=== PATIENT | female | born 1945 | race Caucasian/White ===

== ENCOUNTER 2016-08-20 16:32 | Emergency (ER) | payer OTHER ==
[~2016-08-20] VITALS: Ht 149.9 cm; Wt 76.8 kg
[~2016-08-20 16:32] MED LIST: ASPI-232 PO; BENA-4 PO; FERR325T51 PO; FLV1 PO; GABA800T PO; OMEP40CA41 PO; PRVHFAIN INH; ULT/50 PO; VTMB12 PO; [UNRECOGNIZED DRUG - CODE] PO
[2016-08-20 16:38] VITALS: TEMP 36.5; Ht 149.9 cm; Wt 76.8 kg
--- NOTE | 2016-08-20 18:46 | DIAGNOSTIC IMAGING REPORT ---
LEFT SHOULDER MIN 2 VIEWS ROUTINE CLINICAL HISTORY: Left shoulder pain following fall. COMPARISON: None FINDINGS: Alignment of the left shoulder is anatomic. No acute fracture is identified. There is moderate arthrosis of the left acromioclavicular and glenohumeral joints. IMPRESSION: 1. No acute fracture or dislocation of the left shoulder. 2. Moderate arthritis of the left acromioclavicular and glenohumeral joints. Electronically signed by: Raj Meek M.D. 08/20/2016 6:45 PM Dictated Date/Time: 08/20/2016 6:43 PM
--- NOTE | 2016-08-20 18:51 | DIAGNOSTIC IMAGING REPORT ---
LEFT RIBS UNILATERAL WITH PA CHEST CLINICAL HISTORY: Left rib pain following fall. COMPARISON STUDY: Chest radiograph July 27, 2015. FINDINGS: There is no pneumothorax or pleural effusion. Lungs are clear. Cardiac size is normal. Lumbar spine fusion hardware is partially imaged. No acute left-sided rib fractures are identified IMPRESSION: No pneumothorax. No acute left rib fractures identified. Electronically signed by: Raj Meek M.D. 08/20/2016 6:50 PM Dictated Date/Time: 08/20/2016 6:48 PM
--- NOTE | 2016-08-20 18:54 | DIAGNOSTIC IMAGING REPORT ---
CT OF THE HEAD WITHOUT CONTRAST CLINICAL HISTORY: Trauma. COMPARISON STUDY: Head CT July 27, 2015. CT DOSE: 918.08 mGy.cm TECHNIQUE: Helical axial images of the head were obtained without IV contrast. Automated exposure control was utilized for the study. FINDINGS: No acute intracranial hemorrhage, midline shift or mass effect is present. Prominence of the extra-axial CSF spaces is unchanged. Ventricular system is normal. Basilar cisterns are patent. There are no extra axial collections. Longoria-white differentiation is maintained. There is a small left scalp contusion. There is no calvarial fracture. IMPRESSION: 1. No acute intracranial findings. 2. Small left scalp contusion. No calvarial fracture. Electronically signed by: Raj Meek M.D. 08/20/2016 6:53 PM Dictated Date/Time: 08/20/2016 6:51 PM
--- NOTE | 2016-08-20 19:01 | DIAGNOSTIC IMAGING REPORT ---
CT OF THE CERVICAL SPINE WITHOUT CONTRAST CLINICAL HISTORY: Trauma. COMPARISON STUDY: No previous studies for comparison. TECHNIQUE: Helical axial images of the cervical spine were obtained without IV contrast. Sagittal and coronal reconstructions were viewed. FINDINGS: The craniocervical junction is intact. There is reversal of the normal cervical lordosis. There is mild loss of height with associated sclerosis of the superior endplate of T1. There is no retropulsion. No acute cervical spine fracture is present. Mild to moderate multilevel degenerative changes are present. There is no prevertebral edema. No pneumothorax is shown within visualized portions of the lung apices IMPRESSION: 1. No acute cervical spine fracture or subluxation. 2. Mild loss of height with associated sclerosis of the superior endplate of T1. This is new since CT of December 09, 2014. Although age indeterminate, this is likely subacute to chronic. This does not appear acute. Electronically signed by: Raj Meek M.D. 08/20/2016 6:59 PM Dictated Date/Time: 08/20/2016 6:53 PM
[2016-08-20 19:24] LABS: URINE APPEARANCE CLEAR (CLEAR); URINE BILIRUBIN NEG (NEG); URINE COLOR YELLOW; URINE EPITHELIAL CELL AUTO 0-5 /lpf (0-5); URINE NITRITE NEG (NEG); URINE SPECIFIC GRAVITY 1.008 (1.000-1.030); UROBILINOGEN NEG (NEG); ZZUR CULT IF INDIC CLEAN CATCH NO
[2016-08-20 19:25] LABS: MANUAL MICROSCOPIC REQUIRED? NO; REVIEW REQ? NO
[2016-08-20 21:17] VITALS: BP 135/75; PULSE 75; O2SAT 99
--- NOTE | 2016-08-20 23:03 | EMERGENCY ROOM VISIT NOTE ---
History Report prepared by Alden: Katja Mace Under the Supervision of: Dr. Percy López M.D. First contact with patient: 17:43 Chief Complaint: FALL Stated Complaint: FALL, HEAD PAIN, RIB PAIN History of Present Illness The patient is a 71 year old female who presents to the Emergency Room with complaints of constant pain from injuries following a fall that occurred just prior to arrival. She rates her pain as 7/10 in severity. The patient states that she was at the [facility] for a game when her foot got stuck on the stairs and she fell down. She states that she is experiencing head, left shoulder and left rib pain. She also notes neck stiffness. Pt denies LOC, visual changes, chest pain, breathing difficulties, nausea, vomiting, abdominal pain, back pain, other extremity pain, numbness, weakness, open wounds, active bleeding, or other complaints. 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 Review of Systems See HPI for pertinent positives and negatives. A total of ten systems were reviewed and were otherwise negative. Past Medical & Surgical Medical Problems: (1) Allergic reaction (2) Benign essential hypertension (3) Chronic osteoarthritis (4) Deep venous thrombosis (5) Gastroesophageal reflux disease (6) History of appendectomy (7) History of calculus of kidney (8) History of cholecystectomy (9) History of colonoscopy (10) History of tonsillectomy (11) History of total hysterectomy (12) Hyperlipidemia (13) Insertion of inferior vena caval filter (14) Pulmonary embolism (15) Spinal stenosis of lumbar region (16) Urethritis (17) Urethritis (18) Urethritis (19) urinary tract infection Family History Cancer Heart disease Hypertension Social History Smoking Status: Never Smoker Alcohol Use: none Drug Use: none Marital Status: Housing Status: lives with significant other Occupation Status: retired Current/Historical Medications Scheduled Aspirin (Aspir-81), 81 MG PO DAILY Benazepril/Hctz (Lotensin Hct), 1 TAB PO DAILY Cyanocobalamin (Vitamin B-12), 1,000 MCG PO QAM Folic Acid (Folic Acid), 1 MG PO QAM Gabapentin (Neurontin), 800 MG PO TID Omeprazole (Prilosec), 40 MG PO DAILY Scheduled PRN Tramadol Hcl (Ultram), 50 MG PO Q6 PRN for Pain Allergies Coded Allergies: Naproxen (Verified Allergy, Severe, SOB, 08/20/16) Ibuprofen (Verified Allergy, Mild, HIVES, 08/20/16) Morphine (Verified Allergy, Mild, itching, 08/20/16) Penicillins (Verified Allergy, Unknown, 08/20/16) Prochlorperazine (Verified Allergy, Unknown, 08/20/16) Physical Exam Vital Signs Date Time Temp Pulse Resp B/P Pulse Ox O2 Delivery O2 Flow Rate FiO2 08/20/16 21:17 75 17 135/75 99 08/20/16 20:07 79 17 141/76 98 Room Air 08/20/16 16:38 36.5 79 20 163/88 97 Room Air Physical Exam GENERAL: Awake, alert, well appearing, no acute distress HEAD: Contusion left parietal area. Normocephalic, atraumatic. No pride sign. No raccoon eyes. EYES: Normal conjunctiva. PERRL. EARS: External ears normal. Right TM normal. Left TM normal. NOSE: Atraumatic OROPHARYNX: Lips, tongue, and mucosa unremarkable. No erythema or exudate. NECK: No tracheal deviation or JVD. No posterior midline tenderness. No step offs noted. RESPIRATORY: CTA bilaterally CARDIAC: 78 rate, normal rhythm. ABDOMEN: Inspection reveals no abnormalities. Soft, non distended. No tenderness to palpation. No hernias. BACK: No midline step offs or tenderness to palpation. Unremarkable. PELVIS: Stable to rock. SKIN: Normal. LYMPH: No adenopathy. MUSCULOSKELETAL: Hematoma of left shoulder. Left lateral rib tenderness. NEURO: GCS 15. Normal sensorium. No sensory or motor deficits noted. Medical Decision & Procedures ER Provider Diagnostic Interpretation: X ray results as stated below per my interpretation and radiologist interpretation. Other radiology results as stated below per my review and radiologist interpretation LEFT SHOULDER MIN 2 VIEWS ROUTINE CLINICAL HISTORY: Left shoulder pain following fall. COMPARISON: None FINDINGS: Alignment of the left shoulder is anatomic. No acute fracture is identified. There is moderate arthrosis of the left acromioclavicular and glenohumeral joints. IMPRESSION: 1. No acute fracture or dislocation of the left shoulder. 2. Moderate arthritis of the left acromioclavicular and glenohumeral joints. Electronically signed by: Raj Meek M.D. 08/20/2016 6:45 PM Dictated Date/Time: 08/20/2016 6:43 PM LEFT RIBS UNILATERAL WITH PA CHEST CLINICAL HISTORY: Left rib pain following fall. COMPARISON STUDY: Chest radiograph July 27, 2015. FINDINGS: There is no pneumothorax or pleural effusion. Lungs are clear. Cardiac size is normal. Lumbar spine fusion hardware is partially imaged. No acute left-sided rib fractures are identified IMPRESSION: No pneumothorax. No acute left rib fractures identified. Electronically signed by: Raj Meek M.D. 08/20/2016 6:50 PM Dictated Date/Time: 08/20/2016 6:[address] OF THE HEAD WITHOUT CONTRAST CLINICAL HISTORY: Trauma. COMPARISON STUDY: Head CT July 27, 2015. CT DOSE: 918.08 mGy.cm TECHNIQUE: Helical axial images of the head were obtained without IV contrast. Automated exposure control was utilized for the study. FINDINGS: No acute intracranial hemorrhage, midline shift or mass effect is present. Prominence of the extra-axial CSF spaces is unchanged. Ventricular system is normal. Basilar cisterns are patent. There are no extra axial collections. Longoria-white differentiation is maintained. There is a small left scalp contusion. There is no calvarial fracture. IMPRESSION: 1. No acute intracranial findings. 2. Small left scalp contusion. No calvarial fracture. Electronically signed by: Raj Meek M.D. 08/20/2016 6:53 PM Dictated Date/Time: 08/20/2016 6:[address] OF THE CERVICAL SPINE WITHOUT CONTRAST CLINICAL HISTORY: Trauma. COMPARISON STUDY: No previous studies for comparison. TECHNIQUE: Helical axial images of the cervical spine were obtained without IV contrast. Sagittal and coronal reconstructions were viewed. FINDINGS: The craniocervical junction is intact. There is reversal of the normal cervical lordosis. There is mild loss of height with associated sclerosis of the superior endplate of T1. There is no retropulsion. No acute cervical spine fracture is present. Mild to moderate multilevel degenerative changes are present. There is no prevertebral edema. No pneumothorax is shown within visualized portions of the lung apices IMPRESSION: 1. No acute cervical spine fracture or subluxation. 2. Mild loss of height with associated sclerosis of the superior endplate of T1. This is new since CT of December 09, 2014. Although age indeterminate, this is likely subacute to chronic. This does not appear acute. Electronically signed by: Raj Meek M.D. 08/20/2016 6:59 PM Dictated Date/Time: 08/20/2016 6:53 PM Laboratory Results Test 08/20/16 18:30 Urine Color YELLOW Urine Appearance CLEAR (CLEAR) Urine pH 5.0 (4.5-7.5) Urine Specific [place] 1.008 (1.000-1.030) Urine Protein NEG (NEG) Urine Glucose (UA) NEG (NEG) Urine Ketones NEG (NEG) Urine Occult Blood NEG (NEG) Urine Nitrite NEG (NEG) Urine Bilirubin NEG (NEG) Urine Urobilinogen NEG (NEG) Urine Leukocyte Esterase SMALL (NEG) Urine WBC (Auto) 1-5 /hpf (0-5) Urine RBC (Auto) 0-4 /hpf (0-4) Urine Hyaline Casts (Auto) 0 /lpf (0-5) Urine Epithelial Cells (Auto) 0-5 /lpf (0-5) Urine Bacteria (Auto) NEG (NEG) Laboratory results reviewed by me ECG Indication: other (fall) Rate (beats per minute): 78 Rhythm: normal sinus Findings: no acute ischemic change, no ectopy ED Course 1747: The patient was evaluated in room B3. A complete history and physical exam was performed. 2042: I reevaluated the patient. Discussed results and discharge instructions: She verbalized understanding and agreement. The patient is ready for discharge. Medical Decision Triage Nursing notes reviewed. The patient's presentation and history were concerning for a fall. Etiologies such as soft tissue injury, fracture, dislocation, closed head injury , concussion, intracranial bleeding, as well as others were entertained. The patient was evaluated. Clinically she was doing relatively well. She declined analgesia. The patient underwent x-ray and CT imaging. So head CT did not reveal any evidence of acute findings. CT of the neck did not reveal any evidence of acute fracture. There was no abnormality seen on T1. The patient was informed. She has no pain in this area. The patient underwent x- ray imaging of the shoulder and ribs. This did not reveal any evidence of fracture or dislocation. The patient was reassessed. She was feeling somewhat better. I did offer analgesia but she has tramadol at home and prefers to stick with this. If she has any problems she will come back to the emergency department she will follow-up closely. It appears that she has suffered multiple contusions from her accidental fall. By the evaluation outlined above other emergent etiologies such as those listed in the differential, as well as others, were deemed relatively unlikely. The patient was informed about the findings as listed above. All questions were answered and she was pleased with the treatment. Return instructions were outlined and the patient was discharged in stable condition. The patient was referred to her for follow-up PCP for a recheck of the current condition. The chart was completed utilizing [employer] Speech voice recognition software. Grammatical errors, random word insertions, pronoun errors, and incomplete sentences are an occasional consequence of this system due to software limitations, ambient noise, and hardware issues. Any formal questions or concerns about the content, text, or information contained within the body of this dictation should be directly addressed to the physician for clarification. Impression Primary Impression: Closed head injury Additional Impressions: Contusion of left shoulder Contusion of rib on left side Accidental fall Scribe Attestation The scribe's documentation has been prepared under my direction and personally reviewed by me in its entirety. I confirm that the note above accurately reflects all work, treatment, procedures, and medical decision making performed by me. Departure Information Dispostion Home / Self-Care Referrals Angélica Cruz M.D. (PCP) Forms HOME CARE DOCUMENTATION FORM, IMPORTANT VISIT INFORMATION Patient Instructions My [facility] Additional Instructions Continue tramadol pain. Acetaminophen(Tylenol) may be used for fever or pain. Use 1000mg every six hours as needed. Avoid using more than 4000mg in a 24 hour period. Ice compresses for 20 minutes at a time four times daily for 2-3 days then warm compresses Rest and elevate your injury. Return to the ER immediately for any numbness, tingling, severe pain, extreme swelling in the extremity or as needed. Follow-up with your primary care physician in 2 to 3 days for a recheck of your current condition. Problem Qualifiers
== END 2016-08-20 21:23 | disposition home or self-care (01) ==
LOC: EDBD 16:32 → C.EDB 16:34
DX: S09.90XA Unspecified injury of head, initial encounter (principal); S40.012A Contusion of left shoulder, initial encounter; S20.212A Contusion of left front wall of thorax, initial encounter; W19.XXXA Unspecified fall, initial encounter; I10 Essential (primary) hypertension; M19.90 Unspecified osteoarthritis, unspecified site; K21.9 Gastro-esophageal reflux disease without esophagitis; Z90.49 Acquired absence of other specified parts of digestive tract; E78.5 Hyperlipidemia, unspecified; Z79.82 Long term (current) use of aspirin; Z80.9 Family history of malignant neoplasm, unspecified; Z82.49 Family history of ischemic heart disease and other diseases of the circulatory system

== ENCOUNTER 2022-03-20 14:26 | Inpatient (IN) ==
[2022-03-20] MEDS ORDERED: methylPREDNISolone 125 MG/2 ML VIAL IV STA (16:34)
[2022-03-20] MEDS ORDERED: ALBUT/IPRATROP 3MG/0.5MG NEB 3 ML VIAL NEB STA (16:34)
--- NOTE | 2022-03-20 16:41 | Emergency Department Note ---
Impression & Plan Pneumonia, COVID-19, Failure of outpatient treatment ED Provider Note NAME: SHER MORLEY AGE: 77 SEX: F : 1945 ARRIVES VIA: Walk-In INFORMANT: [Patient] ED PROVIDER(S): [Ariel Barker MD] CHIEF COMPLAINT: Shortness of breath HISTORY OF PRESENT ILLNESS: Patient is a 77-year-old female presents with about 8 days of symptoms. She has had a productive cough and some shortness of breath. No fever. No vomiting or diarrhea. The patient was started on doxycycline 5 days ago. She also was given a very short burst of prednisone. She felt better on the prednisone but now is no longer on this medication for the last 2 days. She is also using an inhaler every 4 hours. As she was feeling worse, she presents for evaluation. Of note, the patient was exposed to COVID-19. She tested positive twice with 2 at home tests. The patient has no diagnosed lung disease. She states that she does not smoke. She has had bronchitis before. REVIEW OF SYSTEMS: See HPI for pertinent positives and negatives. A total of ten systems were re viewed and were otherwise negative. PMHx/PSHx: See Below SOCIAL HISTORY: See Below. PHYSICAL EXAM: GENERAL: Patient is in no acute distress. HEENT: No acute trauma, normocephalic atraumatic, mucous membranes moist, no nasal congestion, no scleral icterus. NECK: No stridor, no adenopathy, no meningismus, trachea is midline. LUNGS: Diminished breath sounds, no respiratory distress, breath sounds equal, no wheezing. Moist cough noted. HEART: Without murmurs gallops or rubs, regular rate and rhythm. ABDOMEN: Soft, nontender, bowel sounds positive, no peritonitis. EXTREMITIES: No cyanosis or edema, full range of motion of all the joints without pain or difficulty, no signs for acute trauma. NEUROLOGIC: Oriented x 3, no acute motor or sensory deficits, no focal weakness. SKIN: No rash, no jaundice, no diaphoresis. DIFFERENTIAL DIAGNOSIS: Bronchitis or pneumonia, generalized viral illness, COVID-19, influenza, bronchospasm, dehydration, cardiac ischemia, among others. EMERGENCY DEPARTMENT COURSE/PROCEDURES: ECG: Indication was shortness of breath. The ECG shows a normal sinus rhythm with a rate of 75. There is no ST elevation, no PVCs. There is some nonspecific ST change. QTC was 455. Continuous Cardiac Monitoring: An order was placed for continuous cardiac monitoring. The monitor shows a rate of 82 with normal sinus rhythm. MEDICAL DECISION MAKING: There is no leukocytosis or concerning anemia. There is a normal platelet count. No coagulopathy. No significant electrolyte abnormality or renal failure. AST and ALT were slightly elevated, the bilirubin was normal. ECG showed a normal sinus rhythm, no ST elevation. Cardiac enzyme testing x1 was not consistent with acute cardiac injury. COVID test returned positive. Influenza and RSV test returned negative. Chest film does suggest a bilateral lower lobe pneumonia. On exam, the patient had diminished breath sounds, she was not hypoxic. The patient was given IV saline, IV Solu-Medrol, IV ceftriaxone and a DuoNeb. The patient has failed outpatient treatment for pneumonia. She is worse despite the doxycycline. She does have COVID-19, hospitalization is warranted. I spoke with the patient and case management, the on-call hospitalist was consulted. Past Med/Surg History Medical History Anemia Diverticular disease GERD (gastroesophageal reflux disease) CONTROLLED Hiatal hernia History of DVT of lower extremity 2012, WAS ON BLOOD THINNERS X ONE MONTH; unk etiology History of kidney stones History of skin cancer removed Hx pulmonary embolism 2012; AC X ONE MONTHS Hypertension Obesity Osteoarthritis Sleep apnea "mild" no device Surgical History Elgin filter in place PLACED 2012 History of appendectomy History of cholecystectomy History of colonoscopy X 2 History of esophagogastroduodenoscopy (EGD) X 2 History of hysterectomy History of left cataract surgery History of lumbar spinal fusion History of lumpectomy x 2 (benign) History of nasal surgery History of tonsillectomy History of total knee replacement RIGHT Family History Father Hypertension Other No family history of adverse response to anesthesia Social History Smoking Status: Never smoker Cigarettes Per Day: HX OF 1 PACK PER WEEK, QUIT 25 YEARS AGO; Second Hand Exposure: No; Hx Alcohol Use: Yes Alcohol type: wine Hx Substance Use: Yes Last Used Substance: Days (ago) Substance Use Type Other:: medical marijuana 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 Intensive Care Unit Required: No Beliefs That Will Affect Care: None Current Living Situation: Alone Feels Safe at Home: Yes Assistive Devices: Glasses Allergies Allergies Allergy/AdvReac Type Severity Reaction Status Date / Time naproxen Allergy Severe SOB, HIVES Verified 03/20/22 20:11 WITH ALEVE ibuprofen Allergy Mild HIVES Verified 03/20/22 20:11 morphine Allergy Mild itching Verified 03/20/22 20:11 levofloxacin Allergy Unknown Unknown Verified 03/20/22 20:11 Penicillins Allergy Unknown occured as Verified 03/20/22 20:11 a child, severe itching prochlorperazine Allergy Unknown "eyes Verified 03/20/22 20:11 rolled back in head", muscle twitching sulfamethoxazole Allergy Unknown Unknown Verified 03/20/22 20:11 [From Bactrim] trimethoprim [From Bactrim] Allergy Unknown Unknown Verified 03/20/22 20:11 latex Allergy blisters Verified 03/20/22 20:11 nitrofurantoin AdvReac Intermediate Nausea/vomi Verified 03/20/22 20:11 ting Home Meds Home Medications Medication Instructions Recorded Confirmed amoxicillin 500 mg capsule 2,000 mg PO DIRECTED 03/20/22 03/20/22 atorvastatin 20 mg tablet 20 mg PO QAM 03/20/22 03/20/22 benazepril 10 1 tab PO QAM 03/20/22 03/20/22 mg-hydrochlorothiazide 12.5 mg tablet betamethasone valerate 0.1 % 1 applic topical BID PRN FLARE UPS 03/20/22 03/20/22 topical ointment bisacodyl 5 mg tablet 10 mg PO DAILY PRN Constipation 03/20/22 03/20/22 clotrimazole-betamethasone 1 1 applic topical DIRECTED 03/20/22 03/20/22 %-0.05 % topical cream diclofenac sodium 1 % topical gel 1 ea topical BID 03/20/22 03/20/22 doxycycline hyclate 100 mg tablet 100 mg PO BID 03/20/22 03/20/22 duloxetine 60 mg capsule,delayed 60 mg PO DAILY 03/20/22 03/20/22 release estradiol 0.01% (0.1 mg/gram) 1 applic vaginal 2XWK 03/20/22 03/20/22 vaginal cream folic acid 1 mg tablet 1 mg PO DAILY 03/20/22 03/20/22 gabapentin 800 mg tablet 800 mg PO TID 03/20/22 03/20/22 latanoprost 0.005 % eye drops 0 drp ophthalmic (eye) DIRECTED 03/20/22 metoprolol succinate 25 mg 25 mg PO QAM 03/20/22 03/20/22 tablet,extended release 24 hr nystatin 100,000 unit/gram topical 1 applic topical TID 03/20/22 03/20/22 powder (Nystop) nystatin-triamcinolone topical 1 applic topical BID PRN FLARE UPS 03/20/22 03/20/22 cream omeprazole 40 mg capsule,delayed 40 mg PO QAM 03/20/22 03/20/22 release phenazopyridine 95 mg tablet 95 mg PO DIRECTED PRN .URINARY 03/20/22 03/20/22 PROBLEMS Results & Data (ED) Vital Signs Vital Signs - 24 hr 03/20/22 14:28 03/20/22 16:45 03/20/22 16:46 Temperature 36.5 C Temperature Source Temporal Artery Scan Pulse Rate 82 Pulse Rate [Right Finger] Pulse Rhythm [Right Finger] Pulse Strength [Right Finger] Respiratory Rate 16 Respiratory Effort / Characteristics Non-Labored Spontaneous Respiratory Depth Normal Respiratory Pattern Regular Blood Pressure 143/91 H Blood Pressure [Left Arm] Blood Pressure Mean 108 Blood Pressure Mean [Left Arm] Blood Pressure Position Sitting Pulse Oximetry 95 97 97 Oxygen Delivery Method Room Air Room Air Room Air Oxygen Flow Rate 0 Sepsis Recent Fever Within 48 Hours Yes Sepsis New/Unexplained Change in Mental Status No Sepsis Action Taken by Nursing No Action Required 03/20/22 20:27 03/20/22 22:00 Temperature 36.5 C Temperature Source Oral Pulse Rate Pulse Rate [Right Finger] 84 87 Pulse Rhythm [Right Finger] Regular Regular Pulse Strength [Right Finger] Normal Normal Respiratory Rate 18 22 Respiratory Effort / Characteristics Non-Labored Non-Labored Respiratory Depth Normal Normal Respiratory Pattern Regular Regular Blood Pressure Blood Pressure [Left Arm] 162/104 H Blood Pressure Mean Blood Pressure Mean [Left Arm] 123 Blood Pressure Position Pulse Oximetry 98 97 Oxygen Delivery Method Room Air Room Air Oxygen Flow Rate Sepsis Recent Fever Within 48 Hours Sepsis New/Unexplained Change in Mental Status Sepsis Action Taken by Snf Medications Current Medication List: was personally reviewed by me Laboratory Data Attestation: I reviewed the patient's lab results. Result diagrams: 03/20/22 16:48 03/20/22 16:48 Lab Results 03/20/22 03/20/22 03/20/22 Range/Units 16:48 16:48 16:48 WBC 7.55 (4.8-10.8) K/ul RBC 4.85 (3.93-5.22) M/uL Hgb 16.4 H (12.0-16.0) g/dl Hct 47.4 H (34.1-44.9) % MCV 97.7 (80.0-100.0) fL MCH 33.8 (25.0-34.0) pg MCHC 34.6 (32.0-36.0) g/dL RDW Std Deviation 46.9 H (36.4-46.3) fL RDW Coeff of Blayne 13.0 (11.5-14.5) % Plt Count 152 (130-400) K/uL MPV 9.6 (9.4-12.3) fL Immature Gran % (Auto) 1.7 % Neut % (Auto) 79.0 % Lymph % (Auto) 11.5 % Dawson % (Auto) 5.8 % Eos % (Auto) 1.6 % Baso % (Auto) 0.4 % Neut # (Auto) 5.96 (1.4-6.5) K/uL Lymph # (Auto) 0.87 L (1.2-3.4) K/uL Dawson # (Auto) 0.44 (0.24-0.82) K/uL Eos # (Auto) 0.12 (0-0.50) K/uL Baso # (Auto) 0.03 (0-0.2) K/uL Immature Gran # (Auto) 0.13 H (0.00-0.02) K/uL PT 10.6 (9.0-12.0) Seconds INR 1.0 (0.9-1.1) APTT 25.6 (21.0-31.0) Seconds PTT Ratio 0.9 Sodium 136 (136-145) mmol/L Potassium 3.5 (3.5-5.1) mmol/L Chloride 98 (98-107) mmol/L Carbon Dioxide 30 (21-32) mmol/L Anion Gap 8 (3-11) BUN 18 (6-23) mg/dl Creatinine 0.74 (0.6-1.2) mg/dl Est Cr Clr Drug Dosing 60.4 ml/min Est GFR ( Amer) 90.6 ml/min Est GFR (Non-Af Amer) 78.1 ml/min BUN/Creatinine Ratio 24.3 H (10-20) Glucose 84 (70-99(Fasting)) mg/dl Calcium 9.2 (8.5-10.1) mg/dl Magnesium 2.2 (1.7-2.4) mg/dl Total Bilirubin 0.4 (0.2-1.0) mg/dl AST 47 H (13-39) U/L ALT 70 H (7-52) U/L Alkaline Phosphatase 68 (34-104) U/L Troponin I High Sens 4.7 (0-14) pg/ml Total Protein 6.7 (6.0-8.3) gm/dl Albumin 4.1 (3.4-5.0) gm/dl Globulin 2.6 (2.5-4.0) gm/dl Albumin/Globulin Ratio 1.6 (0.9-2) SARS-CoV-2 (PCR) (Negative) Influenza Type A (PCR) (Neg) Influenza Type B (PCR) (Neg) RSV (RT-PCR) (Neg) 03/20/22 Range/Units 17:05 WBC (4.8-10.8) K/ul RBC (3.93-5.22) M/uL Hgb (12.0-16.0) g/dl Hct (34.1-44.9) % MCV (80.0-100.0) fL MCH (25.0-34.0) pg MCHC (32.0-36.0) g/dL RDW Std Deviation (36.4-46.3) fL RDW Coeff of Blayne (11.5-14.5) % Plt Count (130-400) K/uL MPV (9.4-12.3) fL Immature Gran % (Auto) % Neut % (Auto) % Lymph % (Auto) % Dawson % (Auto) % Eos % (Auto) % Baso % (Auto) % Neut # (Auto) (1.4-6.5) K/uL Lymph # (Auto) (1.2-3.4) K/uL Dawson # (Auto) (0.24-0.82) K/uL Eos # (Auto) (0-0.50) K/uL Baso # (Auto) (0-0.2) K/uL Immature Gran # (Auto) (0.00-0.02) K/uL PT (9.0-12.0) Seconds INR (0.9-1.1) APTT (21.0-31.0) Seconds PTT Ratio Sodium (136-145) mmol/L Potassium (3.5-5.1) mmol/L Chloride (98-107) mmol/L Carbon Dioxide (21-32) mmol/L Anion Gap (3-11) BUN (6-23) mg/dl Creatinine (0.6-1.2) mg/dl Est Cr Clr Drug Dosing ml/min Est GFR ( Amer) ml/min Est GFR (Non-Af Amer) ml/min BUN/Creatinine Ratio (10-20) Glucose (70-99(Fasting)) mg/dl Calcium (8.5-10.1) mg/dl Magnesium (1.7-2.4) mg/dl Total Bilirubin (0.2-1.0) mg/dl AST (13-39) U/L ALT (7-52) U/L Alkaline Phosphatase (34-104) U/L Troponin I High Sens (0-14) pg/ml Total Protein (6.0-8.3) gm/dl Albumin (3.4-5.0) gm/dl Globulin (2.5-4.0) gm/dl Albumin/Globulin Ratio (0.9-2) SARS-CoV-2 (PCR) POSITIVE A* (Negative) Influenza Type A (PCR) Negative (Neg) Influenza Type B (PCR) Negative (Neg) RSV (RT-PCR) Negative (Neg) Administered Medications Lactated Ringer's (Lr) 1,000 mls @ 75 mls/hr IV .[id number] ONE Stop: 03/21/22 09:30 Last Admin: 03/20/22 21:10 Dose: 75 mls/hr Documented By: MCKINLEY Discontinued Medications Albuterol (Albut/Ipratrop 3mg/0.5mg Neb 3 Ml Vial) 3 ml NEB NOW STA; Protocol Stop: 03/20/22 16:35 Last Admin: 03/20/22 16:59 Dose: 3 ml Documented By: KV Ceftriaxone Sodium (Rocephin) 2,000 mg in 70 mls @ 140 mls/hr IV NOW STA Stop: 03/20/22 17:54 Last Infusion: 03/20/22 18:33 Dose: 0 mls/hr Documented By: Admin: 03/20/22 17:45 Dose: 140 mls/hr Documented By: KV Sodium Chloride (Nss 1000ml) 500 mls @ 999 mls/hr IV .[id number] ONE Stop: 03/20/22 19:15 Last Admin: 03/20/22 19:45 Dose: 999 mls/hr Documented By: MCKINLEY Clindamycin Phosphate (Cleocin/D5w) 600 mg in 50 mls @ 100 mls/hr IV NOW ONE Stop: 03/20/22 20:33 Last Admin: 03/20/22 20:57 Dose: 100 mls/hr Documented By: MCKINLEY Methylprednisolone (Methylprednisolone 125 Mg/2 Ml Vial) 80 mg IV NOW STA Stop: 03/20/22 16:35 Last Admin: 03/20/22 16:59 Dose: 80 mg Documented By: KV Imaging Data Radiologist's Impression: Chest X-Ray 03/20/22 14:39 XR chest 1V portable CLINICAL HISTORY: SOB TECHNIQUE: Single frontal radiograph of the chest was obtained. Comparison: Comparison is made to chest radiograph 03/01/2018 FINDINGS: No lines and tubes are seen. Cardiomegaly is noted. Bilateral lower lung predominant airspace opacities are seen. No evidence of pleural effusion or pneumothorax. IMPRESSION: Bilateral lower lung predominant airspace opacities which may represent atelectasis, pneumonia, and/or aspiration. ACT 112: Negative or not required by law. Electronically signed by: Joss Joy M.D. 03/20/2022 5:21 PM Discharge Plan Visit Data Chief Complaint: Shortness of Breath/Dyspnea Stated Complaint: BODY ACHES, SOB ED Provider: Ariel Barker Prescriptions Prescriptions: No Action amoxicillin 500 mg Capsule 2,000 mg PO DIRECTED Rx Instructions: TAKE 1 HOUR BEFORE DENTAL APT. latanoprost 0.005 % drops 0 drp ophthalmic (eye) DIRECTED betamethasone valerate 0.1 % Ointment 1 applic TOPICAL BID PRN (Reason: FLARE UPS) atorvastatin 20 mg tablet 20 mg PO QAM omeprazole 40 mg capsule,delayed release(DR/EC) 40 mg PO QAM gabapentin 800 mg tablet 800 mg PO TID Rx Instructions: take 1 tab in am, noon & hs phenazopyridine [Azo] 95 mg Tablet 95 mg PO DIRECTED PRN (Reason: .URINARY PROBLEMS) clotrimazole-betamethasone 1-0.05 % cream 1 applic TOPICAL DIRECTED Rx Instructions: FOR 4 WEEKS, ORDERED 03/01/22 folic acid 1 mg Tablet 1 mg PO DAILY metoprolol succinate 25 mg tablet extended release 24 hr 25 mg PO QAM nystatin [Nystop] 100,000 unit/gram powder 1 applic TOPICAL TID estradiol 0.01 % (0.1 mg/gram) cream 1 applic VAGINAL 2XWK doxycycline hyclate 100 mg tablet 100 mg PO BID Rx Instructions: 7 day regimen, filled 03/14/22 benazepril-hydrochlorothiazide 10-12.5 mg tablet 1 tab PO QAM bisacodyl 5 mg Tablet 10 mg PO DAILY PRN (Reason: Constipation) Rx Instructions: DO NOT USE OVER 1 WEEK nystatin-triamcinolone Cream 1 applic TOPICAL BID PRN (Reason: FLARE UPS) duloxetine 60 mg capsule,delayed release(DR/EC) 60 mg PO DAILY diclofenac sodium 1 % gel 1 ea TOPICAL BID Rx Instructions: APPLY TO AFFECTED AREA OF BACK & RIGHT HIP
[2022-03-20 17:16] LABS: Basophils # (auto) 0.03 K/uL (0-0.2); Basophils % (auto) 0.4 %; Eosinophils # (auto) 0.12 K/uL (0-0.50); Eosinophils % (auto) 1.6 %; Hematocrit (blood only) 47.4 % (34.1-44.9); Hemoglobin 16.4 g/dl (12.0-16.0); Immature Granulocytes # (auto) 0.13 K/uL (0.00-0.02); Immature Granulocytes % (auto) 1.7 %; Lymphocytes # (auto) 0.87 K/uL (1.2-3.4); Lymphocytes % (auto) 11.5 %; Mean Corpuscular Hemoglobin 33.8 pg (25.0-34.0); Mean Corpuscular Hgb Conc 34.6 g/dL (32.0-36.0); Mean Corpuscular Volume 97.7 fL (80.0-100.0); Mean Platelet Volume 9.6 fL (9.4-12.3); Monocytes # (auto) 0.44 K/uL (0.24-0.82); Monocytes % (auto) 5.8 %; Neutrophils # (auto) 5.96 K/uL (1.4-6.5); Platelet Count 152 K/uL (130-400); RDW Standard Deviation 46.9 fL (36.4-46.3); Red Blood Count 4.85 M/uL (3.93-5.22); White Blood Count 7.55 K/ul (4.8-10.8)
--- NOTE | 2022-03-20 17:23 | XRay Report ---
XR chest 1V portable CLINICAL HISTORY: SOB TECHNIQUE: Single frontal radiograph of the chest was obtained. Comparison: Comparison is made to chest radiograph 03/01/2018 FINDINGS: No lines and tubes are seen. Cardiomegaly is noted. Bilateral lower lung predominant airspace opaciti es are seen. No evidence of pleural effusion or pneumothorax. IMPRESSION: Bilateral lower lung predominant airspace opacities which may represent atelectasis, pneumonia, and/o r aspiration. ACT 112: Negative or not required by law. Electronically signed by: Joss Joy M.D. 03/20/2022 5:21 PM
[2022-03-20] MEDS ORDERED: cefTRIAXone SODIUM 2,000 MG/70 ML BAG IV STA (17:25)
[2022-03-20 17:33] LABS: Partial Thromboplastin Ratio 0.9; Partial Thromboplastin Time 25.6 Seconds (21.0-31.0); Prothrombin Time 10.6 Seconds (9.0-12.0)
[2022-03-20 17:34] LABS: Albumin Globulin Ratio 1.6 (0.9-2); Albumin Level 4.1 gm/dl (3.4-5.0); BUN Creatinine Ratio 24.3 (10-20); Bilirubin,Total 0.4 mg/dl (0.2-1.0); Calcium 9.2 mg/dl (8.5-10.1); Creatinine Clr Calc Pharmacy 60.4 ml/min; Est GFR (African American) 90.6 ml/min; Est GFR (Non-African American) 78.1 ml/min; Globulin 2.6 gm/dl (2.5-4.0); Magnesium 2.2 mg/dl (1.7-2.4); Potassium 3.5 mmol/L (3.5-5.1); Total Protein 6.7 gm/dl (6.0-8.3)
[2022-03-20 17:40] LABS: Troponin I High Sensitivity 4.7 pg/ml (0-14)
[2022-03-20 17:53] LABS: Influenza A virus by PCR Negative (Neg); Influenza B virus by PCR Negative (Neg); RSV by PCR Negative (Neg)
[2022-03-20 18:07] LABS: SARS CoV2 RNA(COVID-19) InHosp POSITIVE (Negative)
[2022-03-20] MEDS ORDERED: SODIUM CHLORIDE 0.9% 1000ML 500 ML IV ONE (18:45)
--- NOTE | 2022-03-20 19:47 | Communication Note ---
Date of Service: March 20, 2022 I saw the patient in the ED. Performed HPI and physical exam. Discussed plan with attending physician. Please refer to my attending's note for more information on the patient. Resident Activity Tracking Resident Involvement: Resident Care Provided Care Provided: Adult ED
[2022-03-20] MEDS ORDERED: CLINDAMYCIN/D5W 600 MG/50 ML BAG IV ONE (20:04)
[2022-03-20] MEDS ORDERED: LACTATED RINGER'S 1,000 ML IV ONE (20:11)
--- NOTE | 2022-03-20 20:12 | History & Physical Report ---
Date of Service March 20, 2022 Assessment & Plan (1) Bilateral pneumonia: Plan: Possible aspiration pneumonia Recent bout of COVID-19 pneumonia status post doxycycline and prednisone Rx. 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 Lovenox subcu Full code Text document was generated using Click[employer] voice recognition software. It may contain grammatical or spelling errors. Kindly contact undersigned for clarification of any documentation item in question. History of Present Illness Chief Complaint: Cough, shortness of breath Primary Care Provider: Roxi Bueno DO History obtained from patient and records. Medical history significant for hypertension, hyperlipidemia, PE status post IVC filter placement status post anticoagulation, NAFLD, anxiety/mood disorder, past tobacco abuse. Last week, patient noted junky cough symptoms with shortness of breath. Outpatient COVID-19 test was positive. Patient completed COVID-19 vaccination. Admits to sick contacts. Urgent care center prescribed doxycycline and prednisone course to patient. Symptoms significantly improved. Junky cough symptoms the last few days without chest pain. Some shortness of breath. No fever, no chills. Admits to coughing with meals/water intake from time to time if not careful. Some nausea, no vomiting symptoms. Patient consulted ER for worsening symptoms. Ceftriaxone administered at the ER. 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 Allergies Allergy/AdvReac Type Severity Reaction Status Date / Time naproxen Allergy Severe SOB, HIVES Verified 03/20/22 20:11 WITH ALEVE ibuprofen Allergy Mild HIVES Verified 03/20/22 20:11 morphine Allergy Mild itching Verified 03/20/22 20:11 levofloxacin Allergy Unknown Unknown Verified 03/20/22 20:11 Penicillins Allergy Unknown occured as Verified 03/20/22 20:11 a child, severe itching prochlorperazine Allergy Unknown "eyes Verified 03/20/22 20:11 rolled back in head", muscle twitching sulfamethoxazole Allergy Unknown Unknown Verified 03/20/22 20:11 [From Bactrim] trimethoprim [From Bactrim] Allergy Unknown Unknown Verified 03/20/22 20:11 latex Allergy blisters Verified 03/20/22 20:11 nitrofurantoin AdvReac Intermediate Nausea/vomi Verified 03/20/22 20:11 ting Home Medications Medication Instructions Recorded Confirmed Type amoxicillin 500 mg capsule 2,000 mg PO DIRECTED 03/20/22 03/20/22 History atorvastatin 20 mg tablet 20 mg PO QAM 03/20/22 03/20/22 History benazepril 10 1 tab PO QAM 03/20/22 03/20/22 History mg-hydrochlorothiazide 12.5 mg tablet betamethasone valerate 0.1 % 1 applic topical BID PRN FLARE UPS 03/20/22 03/20/22 History topical ointment bisacodyl 5 mg tablet 10 mg PO DAILY PRN Constipation 03/20/22 03/20/22 History clotrimazole-betamethasone 1 1 applic topical DIRECTED 03/20/22 03/20/22 History %-0.05 % topical cream diclofenac sodium 1 % topical gel 1 ea topical BID 03/20/22 03/20/22 History doxycycline hyclate 100 mg tablet 100 mg PO BID 03/20/22 03/20/22 History duloxetine 60 mg capsule,delayed 60 mg PO DAILY 03/20/22 03/20/22 History release estradiol 0.01% (0.1 mg/gram) 1 applic vaginal 2XWK 03/20/22 03/20/22 History vaginal cream folic acid 1 mg tablet 1 mg PO DAILY 03/20/22 03/20/22 History gabapentin 800 mg tablet 800 mg PO TID 03/20/22 03/20/22 History latanoprost 0.005 % eye drops 0 drp ophthalmic (eye) DIRECTED 03/20/22 03/20/22 History metoprolol succinate 25 mg 25 mg PO QAM 03/20/22 03/20/22 History tablet,extended release 24 hr nystatin 100,000 unit/gram topical 1 applic topical TID 03/20/22 03/20/22 History powder (Nystop) nystatin-triamcinolone topical 1 applic topical BID PRN FLARE UPS 03/20/22 03/20/22 History cream omeprazole 40 mg capsule,delayed 40 mg PO QAM 03/20/22 03/20/22 History release phenazopyridine 95 mg tablet 95 mg PO DIRECTED PRN .URINARY 03/20/22 03/20/22 History PROBLEMS Past Med/Surg History Medical History Anemia Diverticular disease GERD (gastroesophageal reflux disease) CONTROLLED Hiatal hernia History of DVT of lower extremity 2012, WAS ON BLOOD THINNERS X ONE MONTH; unk etiology History of kidney stones History of skin cancer removed Hx pulmonary embolism 2012; AC X ONE MONTHS Hypertension Obesity Osteoarthritis Sleep apnea "mild" no device Surgical History Armona filter in place PLACED 2012 History of appendectomy History of cholecystectomy History of colonoscopy X 2 History of esophagogastroduodenoscopy (EGD) X 2 History of hysterectomy History of left cataract surgery History of lumbar spinal fusion History of lumpectomy x 2 (benign) History of nasal surgery History of tonsillectomy History of total knee replacement RIGHT Family History Father Hypertension Other No family history of adverse response to anesthesia Social History Smoking Status: Former smoker Cigarettes Per Day: HX OF 1 PACK PER WEEK, QUIT 25 YEARS AGO; Second Hand Exposure: No; Do You Dip or Chew Tobacco: No; Tobacco Cessation Education Requested by Patient: No Hx Alcohol Use: Yes Alcohol type: beer Hx Substance Use: No Preferred Language: Kazakh Communication Ability: Effective Molder Hand Required: No Beliefs That Will Affect Care: None Current Living Situation: Alone Other Information That Helps Us Care for You: No Feels Safe at Home: Yes Safety Concerns: Feels Safe At This Time Assistive Devices: None Review of Systems Review of Systems: As per HPI, all other systems reviewed and negative Physical Exam Physical Exam: GENERAL: Comfortable, anxious, pleasant, morbidly obese, no respiratory distress SKIN: Normal color, warm HEENT: Bespectacled, Gerber palpebral conjunctivae, no ptosis, dry buccal mucosa NECK : Supple, short neck, no tenderness CHEST : Decreased breath sounds, occasional expiratory wheezes, no tenderness HEART : RRR, no obvious murmurs ABDOMEN: Some distention, nontender EXTREMITIES : Minimal LE swelling, no LE tenderness, no other conspicuous deformities noted NEUROLOGIC : Coherent, no facial asymmetry, no other gross focality Results & Data Results & [facility] ([facility]) Vital Signs (Past 12 Hours) Vital Signs Temp Pulse Resp BP Pulse Ox O2 Del Method O2 Flow Rate 03/20/22 16:46 97 Room Air 0 03/20/22 16:45 97 Room Air 03/20/22 14:28 36.5 C 82 16 143/91 H 95 Room Air Laboratory Results Laboratory Results WBC 7.55 K/ul (4.8-10.8) 03/20/22 16:48 RBC 4.85 M/uL (3.93-5.22) 03/20/22 16:48 Hgb 16.4 g/dl (12.0-16.0) H 03/20/22 16:48 Hct 47.4 % (34.1-44.9) H 03/20/22 16:48 MCV 97.7 fL (80.0-100.0) 03/20/22 16:48 MCH 33.8 pg (25.0-34.0) 03/20/22 16:48 MCHC 34.6 g/dL (32.0-36.0) 03/20/22 16:48 RDW Std Deviation 46.9 fL (36.4-46.3) H 03/20/22 16:48 RDW Coeff of Blayne 13.0 % (11.5-14.5) 03/20/22 16:48 Plt Count 152 K/uL (130-400) 03/20/22 16:48 MPV 9.6 fL (9.4-12.3) 03/20/22 16:48 Immature Gran % (Auto) 1.7 % 03/20/22 16:48 Neut % (Auto) 79.0 % 03/20/22 16:48 Lymph % (Auto) 11.5 % 03/20/22 16:48 Kings % (Auto) 5.8 % 03/20/22 16:48 Eos % (Auto) 1.6 % 03/20/22 16:48 Baso % (Auto) 0.4 % 03/20/22 16:48 Neut # (Auto) 5.96 K/uL (1.4-6.5) 03/20/22 16:48 Lymph # (Auto) 0.87 K/uL (1.2-3.4) L 03/20/22 16:48 Kings # (Auto) 0.44 K/uL (0.24-0.82) 03/20/22 16:48 Eos # (Auto) 0.12 K/uL (0-0.50) 03/20/22 16:48 Baso # (Auto) 0.03 K/uL (0-0.2) 03/20/22 16:48 Immature Gran # (Auto) 0.13 K/uL (0.00-0.02) H 03/20/22 16:48 PT 10.6 Seconds (9.0-12.0) 03/20/22 16:48 INR 1.0 (0.9-1.1) 03/20/22 16:48 APTT 25.6 Seconds (21.0-31.0) 03/20/22 16:48 PTT Ratio 0.9 03/20/22 16:48 Sodium 136 mmol/L (136-145) 03/20/22 16:48 Potassium 3.5 mmol/L (3.5-5.1) 03/20/22 16:48 Chloride 98 mmol/L (98-107) 03/20/22 16:48 Carbon Dioxide 30 mmol/L (21-32) 03/20/22 16:48 Anion Gap 8 (3-11) 03/20/22 16:48 BUN 18 mg/dl (6-23) 03/20/22 16:48 Creatinine 0.74 mg/dl (0.6-1.2) 03/20/22 16:48 Est Cr Clr Drug Dosing 60.4 ml/min 03/20/22 16:48 Est GFR ( Amer) 90.6 ml/min 03/20/22 16:48 Est GFR (Non-Af Amer) 78.1 ml/min 03/20/22 16:48 BUN/Creatinine Ratio 24.3 (10-20) H 03/20/22 16:48 Glucose 84 mg/dl (70-99(Fasting)) 03/20/22 16:48 Calcium 9.2 mg/dl (8.5-10.1) 03/20/22 16:48 Magnesium 2.2 mg/dl (1.7-2.4) 03/20/22 16:48 Total Bilirubin 0.4 mg/dl (0.2-1.0) 03/20/22 16:48 AST 47 U/L (13-39) H 03/20/22 16:48 ALT 70 U/L (7-52) H 03/20/22 16:48 Alkaline Phosphatase 68 U/L (34-104) 03/20/22 16:48 Troponin I High Sens 4.7 pg/ml (0-14) 03/20/22 16:48 Total Protein 6.7 gm/dl (6.0-8.3) 03/20/22 16:48 Albumin 4.1 gm/dl (3.4-5.0) 03/20/22 16:48 Globulin 2.6 gm/dl (2.5-4.0) 03/20/22 16:48 Albumin/Globulin Ratio 1.6 (0.9-2) 03/20/22 16:48 SARS-CoV-2 (PCR) POSITIVE (Negative) A* 03/20/22 17:05 Influenza Type A (PCR) Negative (Neg) 03/20/22 17:05 Influenza Type B (PCR) Negative (Neg) 03/20/22 17:05 RSV (RT-PCR) Negative (Neg) 03/20/22 17:05 Impressions Chest X-Ray 03/20/22 14:39 XR chest 1V portable CLINICAL HISTORY: SOB TECHNIQUE: Single frontal radiograph of the chest was obtained. Comparison: Comparison is made to chest radiograph 03/01/2018 FINDINGS: No lines and tubes are seen. Cardiomegaly is noted. Bilateral lower lung predominant airspace opacities are seen. No evidence of pleural effusion or pneumothorax. IMPRESSION: Bilateral lower lung predominant airspace opacities which may represent atelectasis, pneumonia, and/or aspiration. ACT 112: Negative or not required by law. Electronically signed by: Joss Joy M.D. 03/20/2022 5:21 PM Diagnostic Findings EKG as per my interpretation :Rate 75, NSR, normal axis, LAD, LAFB, incomplete RBBB., T wave abnormalities septal leads Code Status & VTE Plan VTE Prophylaxis Plan VTE Prophylaxis will be ordered: Yes
[2022-03-20] MEDS ORDERED: bisacodyL 5 MG TABEC PO PRN (23:52)
[2022-03-20] MEDS ORDERED: NON-FORMULARY MEDICATION (Phenazopyridine 95 mg Tablet) PO PRN (23:52)
[2022-03-21] MEDS ORDERED: PROMETHAZINE HCL 12.5 MG in SODIUM CHLORIDE 0.9% 50 ML IV PRN (02:03)
[2022-03-21] MEDS: LATANOPROST 0.005% OP SOLN 2.5 ML BTL OP SCH ×2 (02:06→22:41)
[2022-03-21] MEDS: GABAPENTIN 800 MG TAB PO SCH ×4 (02:08→22:42)
[2022-03-21] MEDS: LEVALBUTEROL TARTRATE 15 GM HFA.AER.AD INH SCH ×3 (03:25→11:50)
[2022-03-21 06:25] LABS: Basophils # (auto) 0.01 K/uL (0-0.2); Basophils % (auto) 0.2 %; Hematocrit (blood only) 44.1 % (34.1-44.9); Hemoglobin 15.1 g/dl (12.0-16.0); Immature Granulocytes # (auto) 0.14 K/uL (0.00-0.02); Immature Granulocytes % (auto) 2.3 %; Lymphocytes # (auto) 0.76 K/uL (1.2-3.4); Lymphocytes % (auto) 12.7 %; Mean Corpuscular Hemoglobin 33.1 pg (25.0-34.0); Mean Corpuscular Hgb Conc 34.2 g/dL (32.0-36.0); Mean Corpuscular Volume 96.7 fL (80.0-100.0); Mean Platelet Volume 9.5 fL (9.4-12.3); Monocytes # (auto) 0.38 K/uL (0.24-0.82); Monocytes % (auto) 6.3 %; Neutrophils % (auto) 78.5 %; Platelet Count 142 K/uL (130-400); RDW Standard Deviation 46.7 fL (36.4-46.3); Red Blood Count 4.56 M/uL (3.93-5.22); White Blood Count 5.99 K/ul (4.8-10.8)
[2022-03-21] MEDS: CLINDAMYCIN/D5W 600 MG/50 ML BAG IV SCH ×2 (06:40→15:22)
[2022-03-21 07:02] LABS: BUN Creatinine Ratio 26.7 (10-20); Calcium 8.4 mg/dl (8.5-10.1); Creatinine Clr Calc Pharmacy 99.6 ml/min; Est GFR (Non-African American) 96.7 ml/min; Potassium 4.1 mmol/L (3.5-5.1)
[2022-03-21] MEDS: ATORVASTATIN 20 MG TAB PO SCH (07:52)
[2022-03-21] MEDS: METOPROLOL SUCC 25MG EXT REL TAB PO SCH (07:52)
[2022-03-21] MEDS: FOLIC ACID 1 MG TAB PO SCH (07:52)
[2022-03-21] MEDS: PANTOprazole 40 MG TAB PO SCH (07:52)
[2022-03-21] MEDS: DICLOFENAC SOD 1% GEL 100 GM TUBE EXT SCH ×2 (07:53→22:39)
[2022-03-21] MEDS: DULoxetine HCL 60 MG CAP PO SCH (07:53)
[2022-03-21] MEDS: ENOXAPARIN INJ 40 MG/0.4 ML SYR SQ SCH (07:53)
[2022-03-21] MEDS: ADVANCED PROBIOTIC 1250 MG CAPSULE PO SCH (11:03)
[2022-03-21] MEDS: lisinopril 2.5 MG TAB PO SCH (11:03)
[2022-03-21] MEDS: HYDROcodone/HOMATROPINE SYRUP 5MG/1.5MG 5ML UDP PO PRN ×2 (13:14→18:21)
[2022-03-21] MEDS ORDERED: XOPENEX/ATROVENT 1.25mg/0.5MG NEB COMBO NEB SCH (13:30)
[2022-03-21] MEDS ORDERED: IPRATROPIUM BROMIDE NEB SOLN 0.02% 2.5 ML VIAL INH SCH (13:30)
--- NOTE | 2022-03-21 15:20 | Hospitalist Progress Note ---
Date of Service March 21, 2022 Assessment & Plan (1) COVID-19: (2) Bronchitis: Plan: Possible aspiration pneumonia 77-year-old female with PMH HTN, HLD, PE/DVT s/p IVC filter, NAFLD, anxiety, who presented to the ED for evaluation of cough and shortness of breath. On 03/14, patient tested positive for COVID-19 as an outpatient and was given prednisone and doxycycline by urgent care provider. Patient also admitted to some occasional coughing and choking with liquids and food. Admitting CXR: Bilateral lower lung predominant airspace opacities which may represent atelectasis, pneumonia, and/or aspiration. COVID-19 test positive on 03/20 Saturating well on room air, no indication for COVID-19 directed therapies Continue clindamycin (day 2) for possible aspiration pneumonia Sputum culture Pulmonary toilet with acetylcysteine nebs and DuoNebs, incentive spirometry/flutter valve CT chest without contrast Speech eval completed --no overt signs or symptoms of aspiration or dysphagia. Patient educated on aspiration and GERD precautions. 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 PT/OT (3) Hypertension: Plan: BP controlled, continue metoprolol On lisinopril as patient's home benazepril is nonformulary Continue to hold HCTZ while acutely ill (4) Hx pulmonary embolism: (5) History of DVT of lower extremity: Plan: S/p IVC filter, no longer on anticoagulation Checking BL LE Dopplers (6) DVT prophylaxis: Plan: SQ Lovenox Admission and Anticipated Discharge Date Admission Date: March 20, 2022 Supervising Physician Co-Signing Physician Notes Attending Addendum: care coordinated with ERIN wilson please refer to her notes for full details, I agree with her notes patient seen and examined, records reviewed by myself as well on exam, patient seen resting in bed, sitting up, not in distress, comfortable but having frequent episodes of coughing spells States cough is productive with white sputum this morning Also having chills at home No chest pain, does report bilateral lower extremity pain no other symptoms VS noted and reviewed oriented x3, not in distress, speaks in sentences with no effort nor accessory muscle use normal rate, regular rhythm, no murmurs Diminished breath sounds bilaterally, no wheezing or crackles noted non distended, soft, nontender no bipedal edema, erythema, warmth no neuro deficits All labs noted and reviewed ASSESSMENT AND PLAN> Cough, shortness of breath in the setting of COVID-19 pneumonia Possible superimposed bacterial pneumonia? Chest x-ray showing bilateral lower infiltrates CT chest: Pending Concern with possible mucous plugging Start nebs every 6 hours scheduled, Mucomyst twice daily scheduled, incentive spirometry, flutter valve Sputum culture: Pending Start empiric Levaquin 750 mg p.o. daily Confirming patient, no allergy to Levaquin, has taken ciprofloxacin in the past with no problems other diagnoses and plan of care as per ERIN Mcclelland MD Subjective Follow-up for COVID-19, bronchitis, possible aspiration pneumonia. Patient seen and examined. Resting in bed, no acute distress. Cough continues however improved per patient. Cough is nonproductive. Patient reports some ongoing mild myalgias. No chest pain or shortness of breath. Reports a good appetite, denies abdominal pain, nausea, vomiting, diarrhea. Review of Systems Review of Systems: ROS per HPI, all other systems reviewed and negative Physical Exam Constitutional: WD/WN, vitals as above Respiratory: normal respiratory effort and + cough (Harsh, nonproductive); no respiratory distress Mildly coarse breath sounds noted in the upper anterior airways, otherwise clear Cardiovascular: Rate/Rhythm: regular rate and regular rhythm Vessels: normal peripheral pulses Extremities: no edema Gastrointestinal (Abdomen): Percussion/Palpation: abdomen soft; abdomen nontender Skin: no rashes, warm and dry Neurologic: no focal motor deficits Psychiatric: A+Ox3, euthymic affect Results & Data Results & Data ([facility]) Vital Signs (Past 12 Hours) Vital Signs Temp Pulse Resp BP Pulse Ox O2 Del Method 03/21/22 11:51 74 18 93 Room Air 03/21/22 08:15 Room Air 03/21/22 08:04 36.7 C 74 18 114/71 93 Room Air 03/21/22 07:12 74 16 95 Room Air 03/21/22 03:28 77 16 94 Room Air Laboratory Results Short CBC 03/20/22 03/21/22 Range/Units 16:48 06:09 WBC 7.55 5.99 (4.8-10.8) K/ul Hgb 16.4 H 15.1 (12.0-16.0) g/dl Hct 47.4 H 44.1 (34.1-44.9) % Plt Count 152 142 (130-400) K/uL BMP 03/20/22 03/21/22 16:48 06:09 Sodium 136 138 Potassium 3.5 4.1 Chloride 98 103 Carbon Dioxide 30 27 BUN 18 12 Creatinine 0.74 0.45 L Glucose 84 113 H Calcium 9.2 8.4 L Liver Function 03/20/22 Range/Units 16:48 Total Bilirubin 0.4 (0.2-1.0) mg/dl AST 47 H (13-39) U/L ALT 70 H (7-52) U/L Alkaline Phosphatase 68 (34-104) U/L Albumin 4.1 (3.4-5.0) gm/dl
[2022-03-21] MEDS: LEVALBUTEROL 1.25MG/0.5ML NEB INH SCH ×2 (15:50→20:14)
[2022-03-21] MEDS: ACETYLCYSTEINE 10% INHAL SOLN 4 ML **DISPENSED BY RESP. INH SCH ×2 (15:51→20:14)
[2022-03-21] MEDS: IPRATROPIUM BROMIDE NEB SOLN 0.02% 2.5 ML VIAL INH SCH ×4 (15:51→20:13)
--- NOTE | 2022-03-21 16:16 | CT Scan Report ---
CT SCAN OF THE CHEST WITHOUT IV CONTRAST CLINICAL HISTORY: Pneumonia. Covid. COMPARISON STUDY: Chest x-ray dated 03/20/2022. Chest CT dated 12/09/2014. TECHNIQUE: CT scan of the thorax was performed from the thoracic inlet to the upper abdomen. Images are reviewed in the axial, sagittal, and coronal planes. IV contrast was not administered for this ex amination as per the referring clinician. A dose lowering technique was utilized [facility] [place]. CT DOSE: 630.72 mGy.cm FINDINGS: Thyroid: Imaged portions of the thyroid gland are normal in size and attenuation. Thoracic aorta: There is atherosclerotic calcification of the thoracic aorta, which is normal in rodney klaus and demonstrates variant 3-vessel arch anatomy. There is a bovine arch, and the left vertebral ar maranda arises directly from the thoracic aorta. Heart: The heart is normal in size and without pericardial effusion. There are calcifications of the coronary arteries and mitral annulus. Lungs and pleural spaces: Evaluation of the lung parenchyma is significantly degraded by motion artif act. Multifocal groundglass consolidation is seen throughout both lungs with a subpleural and lower l obe predominance. There is no pleural effusion. The trachea and central airways are clear. Mediastinum: There is no mediastinal lymphadenopathy. Glory: Not well assessed without IV contrast. Axillae: There is no axillary lymphadenopathy. Upper abdomen: A small hiatal hernia is noted. There is hepatic steatosis. The gallbladder surgically absent. Skeletal structures: The skeletal structures are osteopenic. Spondylotic change is seen throughout th e thoracic spine and arthritic change is noted in the shoulders. No lytic or blastic bony lesions are seen. IMPRESSION: 1. Multifocal groundglass consolidation is seen throughout both lungs as detailed above. This is cons istent with reported history of a viral pneumonia. Radiographic follow-up resolution is recommended. 2. No pleural effusion is identified. 3. Hepatic steatosis. 4. Additional findings as above. ACT 112: Negative or not required by law. Electronically signed by: Ariel Bolaños M.D. 03/21/2022 4:14 PM
[2022-03-21] MEDS ORDERED: Nursing to Pharmacy Communication SCH (18:00)
[2022-03-21] MEDS: levoFLOXacin 750 MG TAB PO SCH (18:21)
--- NOTE | 2022-03-21 21:07 | Ultrasound Report ---
BILATERAL LOWER EXTREMITY VENOUS DOPPLER HISTORY: Acute pain of the right lower extremity leg pain, r/o DVT COMPARISON STUDY: 12/09/2014. FINDINGS: There is normal compressibility, flow, and augmentation within the bilateral lower extremit y deep venous systems. Mild stranding within the left popliteal vein may represent a chronic nonocclu sive thrombus, unchanged from 2015. IMPRESSION: No acute DVT within the right or left lower extremity. ACT 112: Negative or not required by law. Electronically signed by: Ethan Celeste M.D. 03/21/2022 9:06 PM
[2022-03-21] MEDS: ACETAMINOPHEN 325 MG TAB PO PRN (22:38)
--- NOTE | 2022-03-21 22:42 | Electrocardiogram Report ---
Test Reason : Blood Pressure : / mmHG Vent. Rate : 075 BPM Atrial Rate : 075 BPM P-R Int : 160 ms QRS Dur : 088 ms QT Int : 408 ms P-R-T Axes : 067 -38 068 degrees QTc Int : 455 ms Normal sinus rhythm Biatrial enlargement Left axis deviation Abnormal ECG When compared with ECG of 20-AUG-2016 17:39, No significant change was found Confirmed by Fantasma Hatch ([id number]) on 03/21/2022 10:41:58 PM Referred By: Roxi Bueno Confirmed By:Fantasma Hatch
[2022-03-22] MEDS: IPRATROPIUM BROMIDE NEB SOLN 0.02% 2.5 ML VIAL INH SCH ×8 (01:29→20:16)
[2022-03-22] MEDS: LEVALBUTEROL 1.25MG/0.5ML NEB INH SCH ×4 (01:30→20:15)
[2022-03-22] MEDS: ACETAMINOPHEN 325 MG TAB PO PRN ×2 (04:46→18:27)
[2022-03-22] MEDS ORDERED: LEVALBUTEROL HCL 1.25 MG/3 ML NEB ONE ×3 (07:18→19:50)
[2022-03-22] MEDS: ACETYLCYSTEINE 10% INHAL SOLN 4 ML **DISPENSED BY RESP. INH SCH ×2 (07:27→20:15)
[2022-03-22] MEDS: HYDROcodone/HOMATROPINE SYRUP 5MG/1.5MG 5ML UDP PO PRN ×2 (09:16→18:28)
[2022-03-22] MEDS: lisinopril 2.5 MG TAB PO SCH (09:17)
[2022-03-22] MEDS: DULoxetine HCL 60 MG CAP PO SCH (09:18)
[2022-03-22] MEDS: FOLIC ACID 1 MG TAB PO SCH (09:18)
[2022-03-22] MEDS: PANTOprazole 40 MG TAB PO SCH (09:18)
[2022-03-22] MEDS: METOPROLOL SUCC 25MG EXT REL TAB PO SCH (09:19)
[2022-03-22] MEDS: ATORVASTATIN 20 MG TAB PO SCH (09:19)
[2022-03-22] MEDS: GABAPENTIN 800 MG TAB PO SCH ×3 (09:19→20:58)
[2022-03-22] MEDS: DICLOFENAC SOD 1% GEL 100 GM TUBE EXT SCH ×2 (09:20→20:55)
[2022-03-22] MEDS: ADVANCED PROBIOTIC 1250 MG CAPSULE PO SCH (09:20)
[2022-03-22] MEDS: ENOXAPARIN INJ 40 MG/0.4 ML SYR SQ SCH (09:21)
--- NOTE | 2022-03-22 14:47 | Hospitalist Progress Note ---
Date of Service March 22, 2022 Assessment & Plan (1) COVID-19: (2) Bronchitis: Plan: Possible superimposed bacterial pneumonia 77-year-old female with PMH HTN, HLD, PE/DVT s/p IVC filter, NAFLD, anxiety, who presented to the ED for evaluation of cough and shortness of breath. On 03/15, patient tested positive for COVID-19 via home test and was given prednisone and doxycycline by urgent care provider. Patient also admitted to some occasional coughing and choking with liquids and food. Admitting CXR: Bilateral lower lung predominant airspace opacities which may represent atelectasis, pneumonia, and/or aspiration. COVID-19 test positive on 03/20 Saturating well on room air, no indication for COVID-[address] chest without contrast: Multifocal groundglass consolidation is seen throughout both lungs. Received 2 days of IV clindamycin for possible aspiration pneumonia, changed to Levaquin 750 mg PO on 03/21 for possible superimposed bacterial pneumonia. Sputum culture -- need to repeat due to contaminated specimen Pulmonary toilet with acetylcysteine nebs and DuoNebs, incentive spirometry/flutter valve Hycodan cough syrup as needed Speech eval completed --no overt signs or symptoms of aspiration or dysphagia. Patient educated on aspiration and GERD precautions. 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 PT/OT Harsh cough continues, consider DC tomorrow (3) Hypertension: Plan: BP controlled, continue metoprolol On lisinopril as patient's home benazepril is nonformulary Continue to hold HCTZ while acutely ill (4) Hx pulmonary embolism: (5) History of DVT of lower extremity: Plan: S/p IVC filter, no longer on anticoagulation BL LE Doppler negative for DVT (6) DVT prophylaxis: Plan: SQ Lovenox Admission and Anticipated Discharge Date Admission Date: March 20, 2022 Supervising Physician Co-Signing Physician Notes Attending Addendum: care coordinated with ERIN wilson please refer to her notes for full details, I agree with her notes patient seen and examined, records reviewed by myself as well on exam, patient seen sitting up in bedside chair, comfortable, not in distress Still having bouts of cough, but able to expectorate more white phlegm no other symptoms diagnoses and plan of care as per ERIN wilosn's notes Luca Mcclelland MD Subjective Follow-up for COVID-19, bronchitis, possible superimposed bacterial pneumonia. Patient seen and examined. Sitting up in the chair. Minimal improvement in cough however is looser and more productive. Cough has been productive for white/yellow sputum. Patient reports some mild shortness of breath while working with therapy however no hypoxia has been documented. Patient denies chest pain. No abdominal pain or nausea. Physical Exam Constitutional: WD/WN, vitals as above no acute distress Respiratory: normal respiratory effort and + cough; no respiratory distress Coarse breath sounds noted with coughing Cardiovascular: Rate/Rhythm: regular rate and regular rhythm Vessels: normal peripheral pulses Extremities: no edema Gastrointestinal (Abdomen): Percussion/Palpation: abdomen soft; abdomen nontender Skin: no rashes, warm and dry Neurologic: no focal motor deficits Psychiatric: A+Ox3, euthymic affect Results & Data Results & Data ([facility]) Vital Signs (Past 12 Hours) Vital Signs Temp Pulse Resp BP Pulse Ox Pulse Ox Pulse Ox 03/22/22 13:40 91 92 03/22/22 12:59 93 H 18 92 03/22/22 09:45 92 03/22/22 09:30 03/22/22 07:54 36.4 C L 75 22 105/74 92 03/22/22 07:30 69 18 92 Pulse Ox O2 Del Method O2 Flow Rate O2 Flow Rate O2 Flow Rate 03/22/22 13:40 90 0 0 0 03/22/22 12:59 Room Air 03/22/22 09:45 03/22/22 09:30 Room Air 03/22/22 07:54 Room Air 03/22/22 07:30 Room Air Diagnostic Findings Chest CT 03/21/22 13:30 CT SCAN OF THE CHEST WITHOUT IV CONTRAST CLINICAL HISTORY: Pneumonia. Covid. COMPARISON STUDY: Chest x-ray dated 03/20/2022. Chest CT dated 12/09/2014. TECHNIQUE: CT scan of the thorax was performed from the thoracic inlet to the upper abdomen. Images are reviewed in the axial, sagittal, and coronal planes. IV contrast was not administered for this examination as per the referring clinician. A dose lowering technique was utilized adhering to the principles of ALARA. CT DOSE: 630.72 mGy.cm FINDINGS: Thyroid: Imaged portions of the thyroid gland are normal in size and attenuation. Thoracic aorta: There is atherosclerotic calcification of the thoracic aorta, which is normal in caliber and demonstrates variant 3-vessel arch anatomy. There is a bovine arch, and the left vertebral artery arises directly from the thoracic aorta. Heart: The heart is normal in size and without pericardial effusion. There are calcifications of the coronary arteries and mitral annulus. Lungs and pleural spaces: Evaluation of the lung parenchyma is significantly degraded by motion artifact. Multifocal groundglass consolidation is seen throughout both lungs with a subpleural and lower lobe predominance. There is no pleural effusion. The trachea and central airways are clear. Mediastinum: There is no mediastinal lymphadenopathy. Glory: Not well assessed without IV contrast. Axillae: There is no axillary lymphadenopathy. Upper abdomen: A small hiatal hernia is noted. There is hepatic steatosis. The gallbladder surgically absent. Skeletal structures: The skeletal structures are osteopenic. Spondylotic change is seen throughout the thoracic spine and arthritic change is noted in the shoulders. No lytic or blastic bony lesions are seen. IMPRESSION: 1. Multifocal groundglass consolidation is seen throughout both lungs as detailed above. This is consistent with reported history of a viral pneumonia. Radiographic follow-up resolution is recommended. 2. No pleural effusion is identified. 3. Hepatic steatosis. 4. Additional findings as above. ACT 112: Negative or not required by law. Electronically signed by: Ariel Bolaños M.D. 03/21/2022 4:14 PM Venous Doppler Study 03/21/22 13:59 BILATERAL LOWER EXTREMITY VENOUS DOPPLER HISTORY: Acute pain of the right lower extremity leg pain, r/o DVT COMPARISON STUDY: 12/09/2014. FINDINGS: There is normal compressibility, flow, and augmentation within the bilateral lower extremity deep venous systems. Mild stranding within the left popliteal vein may represent a chronic nonocclusive thrombus, unchanged from 2015. IMPRESSION: No acute DVT within the right or left lower extremity. ACT 112: Negative or not required by law. Electronically signed by: Ethan Celeste M.D. 03/21/2022 9:06 PM
[2022-03-22] MEDS: COUGH DROP (SUGAR FREE) LOZ 24 LOZ/1 BOX BUCCAL PRN (18:26)
[2022-03-22] MEDS: levoFLOXacin 750 MG TAB PO SCH (18:27)
[2022-03-22] MEDS: LATANOPROST 0.005% OP SOLN 2.5 ML BTL OP SCH (20:54)
[2022-03-23] MEDS: ACETAMINOPHEN 325 MG TAB PO PRN ×4 (00:30→20:15)
[2022-03-23] MEDS ORDERED: LEVALBUTEROL HCL 1.25 MG/3 ML NEB ONE (01:09)
[2022-03-23] MEDS: IPRATROPIUM BROMIDE NEB SOLN 0.02% 2.5 ML VIAL INH SCH ×6 (01:14→21:18)
[2022-03-23] MEDS: LEVALBUTEROL 1.25MG/0.5ML NEB INH SCH ×4 (01:16→21:18)
[2022-03-23] MEDS: ACETYLCYSTEINE 10% INHAL SOLN 4 ML **DISPENSED BY RESP. INH SCH ×2 (08:13→21:17)
[2022-03-23] MEDS: PANTOprazole 40 MG TAB PO SCH (09:11)
[2022-03-23] MEDS: FOLIC ACID 1 MG TAB PO SCH (09:12)
[2022-03-23] MEDS: DULoxetine HCL 60 MG CAP PO SCH (09:12)
[2022-03-23] MEDS: ADVANCED PROBIOTIC 1250 MG CAPSULE PO SCH (09:12)
[2022-03-23] MEDS: ATORVASTATIN 20 MG TAB PO SCH (09:12)
[2022-03-23] MEDS: METOPROLOL SUCC 25MG EXT REL TAB PO SCH (09:12)
[2022-03-23] MEDS: lisinopril 2.5 MG TAB PO SCH (09:12)
[2022-03-23] MEDS: GABAPENTIN 800 MG TAB PO SCH ×3 (09:12→20:16)
[2022-03-23] MEDS: DICLOFENAC SOD 1% GEL 100 GM TUBE EXT SCH ×2 (09:15→20:17)
[2022-03-23] MEDS: ENOXAPARIN INJ 40 MG/0.4 ML SYR SQ SCH (09:16)
[2022-03-23] MEDS: HYDROcodone/HOMATROPINE SYRUP 5MG/1.5MG 5ML UDP PO PRN ×2 (10:34→16:42)
--- NOTE | 2022-03-23 15:26 | Hospitalist Progress Note ---
Date of Service March 23, 2022 Assessment & Plan (1) COVID-19: (2) Bronchitis: Plan: Possible superimposed bacterial pneumonia 77-year-old female with PMH HTN, HLD, PE/DVT s/p IVC filter, NAFLD, anxiety, who presented to the ED for evaluation of cough and shortness of breath. On 03/15, patient tested positive for COVID-19 via home test and was given prednisone and doxycycline by urgent care provider. Patient also admitted to some occasional coughing and choking with liquids and food. Admitting CXR: Bilateral lower lung predominant airspace opacities which may represent atelectasis, pneumonia, and/or aspiration Saturating well on room air, no indication for COVID-[address] chest without contrast: Multifocal ground glass consolidation is seen throughout both lungs. Received 2 days of IV clindamycin for possible aspiration pneumonia, changed to Levaquin 750 mg PO on 03/21 for possible superimposed bacterial pneumonia First sputum culture contaminated; repeat obtained and pending Pulmonary toilet with acetylcysteine nebs and DuoNebs, incentive spirometry/flutter valve. Added chest percussive therapy BID Hycodan cough syrup as needed, added Tessalon Perles Repeat CXR in AM Speech eval completed --no overt signs or symptoms of aspiration or dysphagia. Patient educated on aspiration and GERD precautions. 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 PT/OT (3) Hypertension: Plan: BP controlled, continue metoprolol On lisinopril as patient's home benazepril is nonformulary Continue to hold HCTZ while acutely ill (4) Hx pulmonary embolism: (5) History of DVT of lower extremity: Plan: S/p IVC filter, no longer on anticoagulation BL LE Doppler negative for DVT (6) DVT prophylaxis: Plan: SQ Lovenox Plan delayed entry date of service noted above Attending Addendum: care coordinated with LYNN Ayala please refer to her notes for full details, I agree with her notes patient seen and examined, records reviewed by myself as well Luca Mcclelland MD Admission and Anticipated Discharge Date Admission Date: March 20, 2022 Subjective Seen in 380-1 in follow-up for COVID-19, bronchitis, possible superimposed bacterial pneumonia. Feeling similar to yesterday with fatigued and frequent cough but has been hesitant to use cough syrup. Feeling slightly better since RN placed oxygen. Routine breathing treatments Q6H. Denies fever, chills, headache, chest pain. Mildly short of breath when exerting herself like walking the bathroom. No nausea, vomiting, abdominal pain, dysuria, diarrhea or constipation. Review of Systems Review of Systems: At least ten systems reviewed and negative except as noted in the HPI. Physical Exam Physical Exam: Gen: WD/WN, NAD, sitting in bed, obese, A&Ox3, answering questions appropriately HEENT: Normocephalic, atraumatic, conjunctivae moist, sclerae anicteric, mucous membranes moist Lung: Coarse breath sounds bilaterally, diminished at bases. No wheezing Heart: Regular rate, regular rhythm, no murmurs, rubs, or gallops Abdomen: Soft, NT, ND +BS x 4 Extremities: no edema Skin: Warm, no rash Results & Data Results & Data ([facility]) Vital Signs (Past 12 Hours) Vital Signs Temp Pulse Resp BP BP Pulse Ox O2 Del Method 03/23/22 15:14 36.5 C 87 18 115/61 93 Room Air 03/23/22 13:25 87 15 92 Nasal Cannula 03/23/22 10:57 Nasal Cannula 03/23/22 08:42 36.6 C 92 H 22 132/88 03/23/22 08:09 82 17 91 Room Air O2 Flow Rate FiO2 03/23/22 15:14 03/23/22 13:25 2 03/23/22 10:57 2 03/23/22 08:42 03/23/22 08:09 21
[2022-03-23] MEDS: BENZONATATE 100 MG CAPSULE PO PRN (16:32)
[2022-03-23] MEDS: COUGH DROP (SUGAR FREE) LOZ 24 LOZ/1 BOX BUCCAL PRN (16:32)
[2022-03-23] MEDS: dexAMETHasone 6 MG in SYRINGE 0 ML IV SCH (16:42)
[2022-03-23] MEDS: levoFLOXacin 750 MG TAB PO SCH (17:31)
[2022-03-23] MEDS: LATANOPROST 0.005% OP SOLN 2.5 ML BTL OP SCH (20:17)
[2022-03-24] MEDS: HYDROcodone/HOMATROPINE SYRUP 5MG/1.5MG 5ML UDP PO PRN (00:28)
[2022-03-24] MEDS: LEVALBUTEROL 1.25MG/0.5ML NEB INH SCH ×4 (01:54→21:23)
[2022-03-24] MEDS: IPRATROPIUM BROMIDE NEB SOLN 0.02% 2.5 ML VIAL INH SCH ×4 (01:54→21:23)
[2022-03-24] MEDS: ACETYLCYSTEINE 10% INHAL SOLN 4 ML **DISPENSED BY RESP. INH SCH ×2 (07:42→21:23)
[2022-03-24] MEDS: ENOXAPARIN INJ 40 MG/0.4 ML SYR SQ SCH (08:48)
[2022-03-24] MEDS: METOPROLOL SUCC 25MG EXT REL TAB PO SCH (08:49)
[2022-03-24] MEDS: lisinopril 2.5 MG TAB PO SCH (08:49)
[2022-03-24] MEDS: DULoxetine HCL 60 MG CAP PO SCH (08:49)
[2022-03-24] MEDS: ADVANCED PROBIOTIC 1250 MG CAPSULE PO SCH (08:49)
[2022-03-24] MEDS: DICLOFENAC SOD 1% GEL 100 GM TUBE EXT SCH ×2 (08:49→20:13)
[2022-03-24] MEDS: FOLIC ACID 1 MG TAB PO SCH (08:50)
[2022-03-24] MEDS: ATORVASTATIN 20 MG TAB PO SCH (08:50)
[2022-03-24] MEDS: PANTOprazole 40 MG TAB PO SCH (08:50)
[2022-03-24] MEDS: GABAPENTIN 800 MG TAB PO SCH ×3 (08:51→20:13)
[2022-03-24] MEDS ORDERED: POLYETHYLENE (MIRALAX) 17 GM PACK PO PRN (08:53)
[2022-03-24] MEDS: BENZONATATE 100 MG CAPSULE PO PRN ×3 (09:08→21:18)
[2022-03-24] MEDS: DEXTROMETHORPHAN POLYMR COMPLX 30 MG/5 ML UDP PO PRN ×2 (10:02→22:49)
[2022-03-24 10:15] LABS: Hemoglobin 13.7 g/dl (12.0-16.0); Mean Corpuscular Hemoglobin 32.6 pg (25.0-34.0); Mean Corpuscular Hgb Conc 34.3 g/dL (32.0-36.0); Mean Corpuscular Volume 95.2 fL (80.0-100.0); Mean Platelet Volume 9.4 fL (9.4-12.3); Platelet Count 132 K/uL (130-400); RDW Coefficient of Variation 12.7 % (11.5-14.5); RDW Standard Deviation 44.4 fL (36.4-46.3); White Blood Count 4.69 K/ul (4.8-10.8)
[2022-03-24 10:34] LABS: BUN Creatinine Ratio 26.1 (10-20); Calcium 8.5 mg/dl (8.5-10.1); Creatinine Clr Calc Pharmacy 97.4 ml/min; Est GFR (African American) 111.2 ml/min; Potassium 3.7 mmol/L (3.5-5.1)
--- NOTE | 2022-03-24 11:23 | XRay Report ---
XR chest 1V portable HISTORY: Covid. Shortness of breath. COMPARISON: Chest 03/20/2022. FINDINGS: No pneumothorax. No pleural effusions. The cardiac silhouette remains normal in size. Mild interstitial thickening with patchy peripheral airspace opacities within the right upper lobe and lef t lower lobe have slightly progressed. This favors a viral pneumonia. Calcifications within the aorti c knob. IMPRESSION: Interval progression of the patchy peripheral airspace opacities within the lungs consistent with a v iral pneumonia. ACT 112: Negative or not required by law. Electronically signed by: Mahad Cuellar M.D. 03/24/2022 11:22 AM
[2022-03-24] MEDS ORDERED: LEVALBUTEROL HCL 1.25 MG/3 ML NEB ONE (12:37)
[2022-03-24] MEDS: ACETAMINOPHEN 325 MG TAB PO PRN (13:12)
[2022-03-24] MEDS: dexAMETHasone 6 MG in SYRINGE 0 ML IV SCH (15:33)
--- NOTE | 2022-03-24 17:03 | Hospitalist Progress Note ---
Date of Service March 24, 2022 Assessment & Plan (1) COVID-19: (2) Bronchitis: Plan: Possible superimposed bacterial pneumonia 77-year-old female with PMH HTN, HLD, PE/DVT s/p IVC filter, NAFLD, anxiety, who presented to the ED for evaluation of cough and shortness of breath. On 03/15, patient tested positive for COVID-19 via home test and was given prednisone and doxycycline by urgent care provider. Patient also admitted to some occasional coughing and choking with liquids and food. Admitting CXR: Bilateral lower lung predominant airspace opacities which may represent atelectasis, pneumonia, and/or aspiration Saturating well on room air, no indication for COVID-[address] chest without contrast: Multifocal ground glass consolidation is seen throughout both lungs. Received 2 days of IV clindamycin for possible aspiration pneumonia, changed to Levaquin 750 mg PO on 03/21 for possible superimposed bacterial pneumonia Repeat CXR (03/24) with interval progression of the patchy peripheral airspace opacities within the lungs consistent with a viral pneumonia. First sputum culture contaminated; repeat obtained and pending Pulmonary toilet with acetylcysteine nebs and DuoNebs, incentive spirometry/flutter valve. Added chest percussive therapy BID Discontinued Hycodan cough syrup and better symptom control with Delsym. Added Tessalon Perles as needed Continue daily Decadron (day 2) Speech eval completed --no overt signs or symptoms of aspiration or dysphagia. Patient educated on aspiration and GERD precautions. [employer] CONSULTANT recommending regular diet with thin liquids. PT/OT (3) Hypertension: Plan: BP controlled, continue metoprolol On lisinopril as patient's home benazepril is non-formulary Continue to hold HCTZ while acutely ill (4) Hx pulmonary embolism: (5) History of DVT of lower extremity: Plan: S/p IVC filter, no longer on anticoagulation BL LE Doppler negative for DVT (6) DVT prophylaxis: Plan: SQ Lovenox Plan delayed entry date of service noted above Attending Addendum: care coordinated with LYNN Ayala please refer to her notes for full details, I agree with her notes patient seen and examined, records reviewed by myself as well Luca Mcclelland MD Admission and Anticipated Discharge Date Admission Date: March 20, 2022 Subjective Seen in 380-1 in follow-up for COVID-19, bronchitis, possible superimposed bacterial pneumonia. Feeling slightly improved today from yesterday. Still with cough although utilizing Delsym cough syrup with improvement. Doing better steroids. Mental oxygen in place and patient denies shortness of breath at rest but has some with ambulation to restroom. No fevers, chills, headache, chest pain, nausea, vomiting, abdominal pain, dysuria, diarrhea or constipation. Had bowel movement yesterday afternoon. Review of Systems Review of Systems: At least ten systems reviewed and negative except as noted in the HPI. Physical Exam Physical Exam: Gen: WD/WN, NAD, sitting in bed, obese, A&Ox3, answering questions appropriately HEENT: Normocephalic, atraumatic, conjunctivae moist, sclerae anicteric, mucous membranes moist Lung: Coarse breath sounds bilaterally but improving. No wheezing Heart: Regular rate, regular rhythm, no murmurs, rubs, or gallops Abdomen: Soft, NT, ND +BS x 4 Extremities: no edema Skin: Warm, no rash Results & Data Results & Data ([facility]) Vital Signs (Past 12 Hours) Vital Signs Temp Pulse Resp BP Pulse Ox O2 Del Method O2 Flow Rate 03/24/22 15:36 36.4 C L 77 24 111/70 92 Nasal Cannula 2 03/24/22 12:57 83 19 93 Nasal Cannula 3 03/24/22 12:39 76 91 Nasal Cannula 3 03/24/22 08:39 Nasal Cannula 3 03/24/22 08:56 91 Nasal Cannula 3 03/24/22 08:43 36.6 C 87 24 136/68 88 L Room Air 03/24/22 07:45 82 18 92 Room Air Laboratory Results Short CBC 03/24/22 Range/Units 09:25 WBC 4.69 L (4.8-10.8) K/ul Hgb 13.7 (12.0-16.0) g/dl Hct 40.0 (34.1-44.9) % Plt Count 132 (130-400) K/uL BMP 03/24/22 09:25 Sodium 138 Potassium 3.7 Chloride 103 Carbon Dioxide 26 BUN 12 Creatinine 0.46 L Glucose 151 H Calcium 8.5 Diagnostic Findings Chest X-Ray 03/20/22 14:39 XR chest 1V portable CLINICAL HISTORY: SOB TECHNIQUE: Single frontal radiograph of the chest was obtained. Comparison: Comparison is made to chest radiograph 03/01/2018 FINDINGS: No lines and tubes are seen. Cardiomegaly is noted. Bilateral lower lung predominant airspace opacities are seen. No evidence of pleural effusion or pneumothorax. IMPRESSION: Bilateral lower lung predominant airspace opacities which may represent atelectasis, pneumonia, and/or aspiration. ACT 112: Negative or not required by law. Electronically signed by: Joss Joy M.D. 03/20/2022 5:[address] 03/21/22 13:30 CT SCAN OF THE CHEST WITHOUT IV CONTRAST CLINICAL HISTORY: Pneumonia. Covid. COMPARISON STUDY: Chest x-ray dated 03/20/2022. Chest CT dated 12/09/2014. TECHNIQUE: CT scan of the thorax was performed from the thoracic inlet to the upper abdomen. Images are reviewed in the axial, sagittal, and coronal planes. IV contrast was not administered for this examination as per the referring clinician. A dose lowering technique was utilized adhering to the principles of ALARA. CT DOSE: 630.72 mGy.cm FINDINGS: Thyroid: Imaged portions of the thyroid gland are normal in size and attenuation. Thoracic aorta: There is atherosclerotic calcification of the thoracic aorta, which is normal in caliber and demonstrates variant 3-vessel arch anatomy. There is a bovine arch, and the left vertebral artery arises directly from the thoracic aorta. Heart: The heart is normal in size and without pericardial effusion. There are calcifications of the coronary arteries and mitral annulus. Lungs and pleural spaces: Evaluation of the lung parenchyma is significantly degraded by motion artifact. Multifocal groundglass consolidation is seen throughout both lungs with a subpleural and lower lobe predominance. There is no pleural effusion. The trachea and central airways are clear. Mediastinum: There is no mediastinal lymphadenopathy. Glory: Not well assessed without IV contrast. Axillae: There is no axillary lymphadenopathy. Upper abdomen: A small hiatal hernia is noted. There is hepatic steatosis. The gallbladder surgically absent. Skeletal structures: The skeletal structures are osteopenic. Spondylotic change is seen throughout the thoracic spine and arthritic change is noted in the shoulders. No lytic or blastic bony lesions are seen. IMPRESSION: 1. Multifocal groundglass consolidation is seen throughout both lungs as detailed above. This is consistent with reported history of a viral pneumonia. Radiographic follow-up resolution is recommended. 2. No pleural effusion is identified. 3. Hepatic steatosis. 4. Additional findings as above. ACT 112: Negative or not required by law. Electronically signed by: Ariel Bolaños M.D. 03/21/2022 4:14 PM Venous Doppler Study 03/21/22 13:59 BILATERAL LOWER EXTREMITY VENOUS DOPPLER HISTORY: Acute pain of the right lower extremity leg pain, r/o DVT COMPARISON STUDY: 12/09/2014. FINDINGS: There is normal compressibility, flow, and augmentation within the bilateral lower extremity deep venous systems. Mild stranding within the left popliteal vein may represent a chronic nonocclusive thrombus, unchanged from 2015. IMPRESSION: No acute DVT within the right or left lower extremity. ACT 112: Negative or not required by law. Electronically signed by: Ethan Celeste M.D. 03/21/2022 9:06 PM Chest X-Ray 03/24/22 08:00 XR chest 1V portable HISTORY: Covid. Shortness of breath. COMPARISON: Chest 03/20/2022. FINDINGS: No pneumothorax. No pleural effusions. The cardiac silhouette remains normal in size. Mild interstitial thickening with patchy peripheral airspace opacities within the right upper lobe and left lower lobe have slightly progressed. This favors a viral pneumonia. Calcifications within the aortic knob. IMPRESSION: Interval progression of the patchy peripheral airspace opacities within the lungs consistent with a viral pneumonia. ACT 112: Negative or not required by law. Electronically signed by: Mahad Cuellar M.D. 03/24/2022 11:22 AM
[2022-03-24] MEDS: levoFLOXacin 750 MG TAB PO SCH (17:34)
[2022-03-24] MEDS: LATANOPROST 0.005% OP SOLN 2.5 ML BTL OP SCH (20:15)
[2022-03-25] MEDS: LEVALBUTEROL 1.25MG/0.5ML NEB INH SCH ×5 (01:20→20:36)
[2022-03-25] MEDS: IPRATROPIUM BROMIDE NEB SOLN 0.02% 2.5 ML VIAL INH SCH ×5 (01:20→20:36)
[2022-03-25] MEDS: ACETYLCYSTEINE 10% INHAL SOLN 4 ML **DISPENSED BY RESP. INH SCH ×2 (07:42→20:39)
[2022-03-25] MEDS: PANTOprazole 40 MG TAB PO SCH (08:51)
[2022-03-25] MEDS: lisinopril 2.5 MG TAB PO SCH (08:51)
[2022-03-25] MEDS: METOPROLOL SUCC 25MG EXT REL TAB PO SCH (08:51)
[2022-03-25] MEDS: GABAPENTIN 800 MG TAB PO SCH ×3 (08:52→21:23)
[2022-03-25] MEDS: FOLIC ACID 1 MG TAB PO SCH (08:52)
[2022-03-25] MEDS: ADVANCED PROBIOTIC 1250 MG CAPSULE PO SCH (08:52)
[2022-03-25] MEDS: ENOXAPARIN INJ 40 MG/0.4 ML SYR SQ SCH (08:53)
[2022-03-25] MEDS: ATORVASTATIN 20 MG TAB PO SCH (08:53)
[2022-03-25] MEDS: DULoxetine HCL 60 MG CAP PO SCH (08:53)
[2022-03-25] MEDS: DICLOFENAC SOD 1% GEL 100 GM TUBE EXT SCH ×2 (08:57→21:26)
[2022-03-25] MEDS: ACETAMINOPHEN 325 MG TAB PO PRN ×2 (11:12→21:24)
[2022-03-25] MEDS: BENZONATATE 100 MG CAPSULE PO PRN ×2 (11:12→21:34)
[2022-03-25] MEDS: guaiFENesin/CODEINE 100MG/10MG 5ML UDC PO PRN ×3 (11:12→21:34)
--- NOTE | 2022-03-25 16:30 | Hospitalist Progress Note ---
Date of Service March 25, 2022 Assessment & Plan (1) COVID-19: (2) Bilateral pneumonia: Plan: Possible superimposed bacterial pneumonia 77-year-old female with PMH HTN, HLD, PE/DVT s/p IVC filter, NAFLD, anxiety, who presented to the ED for evaluation of cough and shortness of breath. On 03/15, patient tested positive for COVID-19 via home test and was given prednisone and doxycycline by urgent care provider. Patient also admitted to some occasional coughing and choking with liquids and food. Admitting CXR: Bilateral lower lung predominant airspace opacities which may represent atelectasis, pneumonia, and/or aspiration Saturating well on room air, no indication for COVID-[address] chest without contrast: Multifocal ground glass consolidation is seen throughout both lungs. Received 2 days of IV clindamycin for possible aspiration pneumonia, changed to Levaquin 750 mg PO on 03/21 for possible superimposed bacterial pneumonia First sputum culture contaminated; repeat obtained and pending Pulmonary toilet with acetylcysteine nebs and DuoNebs, incentive spirometry/flutter valve. Added chest percussive therapy BID Hycodan cough syrup as needed, added Tessalon Perles Repeat CXR in AM Speech eval completed --no overt signs or symptoms of aspiration or dysphagia. Patient educated on aspiration and GERD precautions. 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 PT/OT 03/25 Clinically improving, still with cough but less frequent, able to expectorate more phlegm Remains on 3 L of oxygen via nasal cannula Changed Levaquin to doxycycline, patient has flushing of the face, Levaquin listed as allergy but unknown reaction Continue Decadron IV daily Continue nebs every 6 hours, Mucomyst twice daily, incentive spirometry, flutter valve, chest physiotherapy Nystatin for oral thrush Ativan as needed for anxiety Mild hematuria Denies urinary symptoms Urinalysis ordered with urine culture (3) Hypertension: Plan: BP controlled, continue metoprolol On lisinopril as patient's home benazepril is nonformulary Continue to hold HCTZ while acutely ill (4) Hx pulmonary embolism: (5) History of DVT of lower extremity: Plan: S/p IVC filter, no longer on anticoagulation BL LE Doppler negative for DVT Continue Lovenox subcutaneous for DVT prophylaxis (6) DVT prophylaxis: Plan: SQ Lovenox Plan plan of care discussed with patient and her granddaughter Terry over the phone in detail and at length all questions answered she is understanding, agreeable, comfortable with the plan of care Admission and Anticipated Discharge Date Admission Date: March 20, 2022 Subjective Follow-up for COVID-19 pneumonia etc. Seen resting in bed, comfortable, not in distress, on 3 L of oxygen via nasal cannula States she feels slowly improving overall daily Still having some cough, less frequent, able to expectorate more phlegm Had some mild hemoptysis today Had some pink-tinged urine today No urinary symptoms Reports flushing of the face, but denies lip or tongue swelling, no other symptoms Review of Systems Review of Systems: all noted and negative except for above Physical Exam Physical Exam: General- oriented x 3, not in distress, speaks in sentences with no effort or accessory muscle use Face-mild flushing, no rashes Eyes- anicteric Neck- no JVD Lungs-positive clear breath sounds bilaterally no wheezing or crackles Heart- normal rate, regular rhythm; no murmurs Abdomen- normal bowel sounds, nondistended, soft, nontender Extremities- no pretibial edema, no calf tenderness Neuro- alert, oriented x 3; no gross focal neurologic deficits Skin- warm & dry Results & Data Results & Data ([facility]) Vital Signs (Past 12 Hours) Vital Signs Temp Pulse Resp BP BP Pulse Ox O2 Del Method 03/25/22 16:07 36.4 C L 74 19 123/68 92 Nasal Cannula 03/25/22 09:00 36.6 C 81 16 172/85 H 91 Nasal Cannula 03/25/22 12:55 76 18 96 Nasal Cannula 03/25/22 10:39 146/88 H 03/25/22 07:50 Nasal Cannula, Nebulizer 03/25/22 07:45 90 22 92 Nasal Cannula O2 Flow Rate 03/25/22 16:07 2 03/25/22 09:00 2 03/25/22 12:55 3 03/25/22 10:39 03/25/22 07:50 2 03/25/22 07:45 4 all noted and reviewed including below
[2022-03-25] MEDS: DEXTROMETHORPHAN POLYMR COMPLX 30 MG/5 ML UDP PO PRN (16:49)
[2022-03-25] MEDS: dexAMETHasone 6 MG in SYRINGE 0 ML IV SCH (17:00)
[2022-03-25 18:00] LABS: Appearance Urine Clear (Clear); Bilirubin Urine Negative (Negative); Blood Urine Negative (Negative); Color Urine Yellow; Glucose Urine UA Negative (Negative); Ketones Urine Negative (Negative); Leukocyte Esterase Urine Negative (Negative); Nitrite Urine Negative (Negative); Protein Urine Negative (Negative); Specific Gravity Urine 1.006 (1.000-1.030); Urobilinogen Urine Negative (Negative); pH Urine 7.5 (4.5-7.5)
[2022-03-25] MEDS ORDERED: LEVALBUTEROL HCL 1.25 MG/3 ML NEB ONE (19:18)
[2022-03-25] MEDS: DOXYCYCLINE HYCLATE 100 MG CAP PO SCH (21:23)
[2022-03-25] MEDS: LATANOPROST 0.005% OP SOLN 2.5 ML BTL OP SCH (21:25)
[2022-03-26] MEDS: LEVALBUTEROL 1.25MG/0.5ML NEB INH SCH ×4 (01:16→20:13)
[2022-03-26] MEDS: IPRATROPIUM BROMIDE NEB SOLN 0.02% 2.5 ML VIAL INH SCH ×4 (01:17→20:13)
[2022-03-26] MEDS: LORazepam 0.5 MG TAB PO PRN (01:33)
[2022-03-26] MEDS: ACETYLCYSTEINE 10% INHAL SOLN 4 ML **DISPENSED BY RESP. INH SCH ×2 (07:34→20:13)
[2022-03-26] MEDS: DICLOFENAC SOD 1% GEL 100 GM TUBE EXT SCH ×2 (08:53→21:17)
[2022-03-26] MEDS: ENOXAPARIN INJ 40 MG/0.4 ML SYR SQ SCH (08:53)
[2022-03-26] MEDS: ADVANCED PROBIOTIC 1250 MG CAPSULE PO SCH (08:54)
[2022-03-26] MEDS: PANTOprazole 40 MG TAB PO SCH (08:54)
[2022-03-26] MEDS: METOPROLOL SUCC 25MG EXT REL TAB PO SCH (08:54)
[2022-03-26] MEDS: GABAPENTIN 800 MG TAB PO SCH ×3 (08:54→21:18)
[2022-03-26] MEDS: ATORVASTATIN 20 MG TAB PO SCH (08:54)
[2022-03-26] MEDS: lisinopril 2.5 MG TAB PO SCH (08:54)
[2022-03-26] MEDS: DULoxetine HCL 60 MG CAP PO SCH (08:54)
[2022-03-26] MEDS: FOLIC ACID 1 MG TAB PO SCH (08:54)
[2022-03-26] MEDS: DOXYCYCLINE HYCLATE 100 MG CAP PO SCH ×2 (08:54→21:17)
[2022-03-26] MEDS: ACETAMINOPHEN 325 MG TAB PO PRN ×3 (08:57→21:18)
[2022-03-26] MEDS: guaiFENesin/CODEINE 100MG/10MG 5ML UDC PO PRN (14:20)
[2022-03-26] MEDS: dexAMETHasone 6 MG in SYRINGE 0 ML IV SCH (15:49)
--- NOTE | 2022-03-26 16:05 | Hospitalist Progress Note ---
Date of Service March 26, 2022 Assessment & Plan (1) COVID-19: (2) Bilateral pneumonia: Plan: Possible superimposed bacterial pneumonia 77-year-old female with PMH HTN, HLD, PE/DVT s/p IVC filter, NAFLD, anxiety, who presented to the ED for evaluation of cough and shortness of breath. On 03/15, patient tested positive for COVID-19 via home test and was given prednisone and doxycycline by urgent care provider. Patient also admitted to some occasional coughing and choking with liquids and food. Admitting CXR: Bilateral lower lung predominant airspace opacities which may represent atelectasis, pneumonia, and/or aspiration Saturating well on room air, no indication for COVID-[address] chest without contrast: Multifocal ground glass consolidation is seen throughout both lungs. Received 2 days of IV clindamycin for possible aspiration pneumonia, changed to Levaquin 750 mg PO on 03/21 for possible superimposed bacterial pneumonia Later on p.o. Levaquin was changed to p.o. doxycycline Has been receiving intravenous Decadron First sputum culture -grew Nava albicans/dubliniensis -likely nonpathogenic Pulmonary toilet with acetylcysteine nebs and DuoNebs, incentive spirometry/flutter valve. Added chest percussive therapy BID Hycodan cough syrup as needed, added Tessalon Perlisidro Repeat CXR in AM -consistent with viral pneumonia and the repeat x-ray looks better so will not start any remdesivir Speech eval completed --no overt signs or symptoms of aspiration or dysphagia. Patient educated on aspiration and GERD precautions. [employer]ER recommending regular diet with thin liquids. PT/OT Mild hematuria Denies urinary symptoms Urinalysis ordered with urine culture-pending (3) Hypertension: Plan: BP controlled, continue metoprolol On lisinopril as patient's home benazepril is nonformulary Continue to hold HCTZ while acutely ill (4) Hx pulmonary embolism: (5) History of DVT of lower extremity: Plan: S/p IVC filter, no longer on anticoagulation BL LE Doppler negative for DVT Continue Lovenox subcutaneous for DVT prophylaxis (6) DVT prophylaxis: Plan: SQ Lovenox Plan plan of care discussed with patient and her granddaughter Terry over the phone in detail and at length all questions answered she is understanding, agreeable, comfortable with the plan of care Admission and Anticipated Discharge Date Admission Date: March 20, 2022 Subjective 03/26/2022 The patient was seen and examined in medical floor and in the COVID room She has been fully vaccinated and complains to have cough with productive of whitish phlegm Denies any fever and or chills Her SOB seems to be improving Review of Systems Review of Systems: All systems reviewed and are unremarkable except as noted below Respiratory: Has significant cough with whitish phlegm. Physical Exam Physical Exam: Sitting on a chair with mild shortness of breath at rest and cough Constitutional: well developed, well nourished, + ill appearing and + obese Eyes: PERRL, conjunctivae normal, anicteric sclerae ENMT: external ear and nose normal, oropharynx normal Neck: trachea midline, no thyromegaly Respiratory: + respiratory distress (Minimal respiratory distress) Auscultation: + diminished lung sounds and + crackles (Occasional crackles at the bases); no wheezes Cardiovascular: Rate/Rhythm: regular rate and regular rhythm; not tachycardic Heart Sounds: normal S1 and normal S2; no murmur Extremities: + edema (Trace edema bilaterally) Gastrointestinal (Abdomen): Inspection/Auscultation: normal bowel sounds; abdomen not distended Percussion/Palpation: abdomen soft; abdomen nontender Musculoskeletal: No acute arthritis in any joint Neurologic: Alert, awake and oriented x3. No focal sensory or no motor deficit appreciated Psychiatric: A+Ox3, euthymic affect Lymphatic: no cervical or axillary lymphadenopathy Results & Data Results & Data ([facility]) Vital Signs (Past 12 Hours) Vital Signs Temp Pulse Resp BP Pulse Ox O2 Del Method O2 Flow Rate 03/26/22 15:48 36.5 C 78 20 132/71 91 Nasal Cannula 4 03/26/22 12:56 70 18 91 Nasal Cannula 4 03/26/22 08:22 Nasal Cannula 4 03/26/22 08:59 36.5 C 81 22 144/77 H 92 Nasal Cannula 4 03/26/22 07:36 76 18 92 Nasal Cannula 4 Laboratory Results Urine 03/25/22 Range/Units 17:50 Urine Color Yellow Urine Appearance Clear (Clear) Urine pH 7.5 (4.5-7.5) Ur Specific [place] 1.006 (1.000-1.030) Urine Protein Negative (Negative) Urine Glucose (UA) Negative (Negative) Medications Administered Current Inpatient Medications Acetaminophen (Acetaminophen 325 Mg Tab) 650 mg PO Q4H PRN PRN Reason: pain/fever Stop: 04/20/22 02:02 Last Admin: 03/26/22 14:19 Dose: 650 mg Acetylcysteine (Acetylcysteine 10% Inhal Soln 4 Ml Dispensed By Resp.) 3 ml INH BID DORY Stop: 04/20/22 13:59 Last Admin: 03/26/22 07:34 Dose: 3 ml Atorvastatin Calcium (Atorvastatin 20 Mg Tab) 20 mg PO QAM [facility] Stop: 04/20/22 08:59 Last Admin: 03/26/22 08:54 Dose: 20 mg Benzonatate (Benzonatate 100 Mg Capsule) 100 mg PO TID PRN PRN Reason: Cough Stop: 04/22/22 15:31 Last Admin: 03/25/22 21:34 Dose: 100 mg Bisacodyl (Bisacodyl 5 Mg Tabec) 10 mg PO DAILY PRN PRN Reason: Constipation Stop: 04/20/22 23:51 Dextromethorphan Polymer Complex (Dextromethorphan Polymr Complx 30 Mg/5 Ml Udp) 30 mg PO Q12H PRN PRN Reason: Cough Stop: 04/23/22 08:52 Last Admin: 03/25/22 16:49 Dose: 30 mg Diclofenac Sodium (Diclofenac Sod 1% Gel 100 Gm Tube) 1 gm EXT BID [facility]; Protocol Stop: 04/20/22 08:59 Last Admin: 03/26/22 08:53 Dose: 1 gm Doxycycline Hyclate (Doxycycline Hyclate 100 Mg Cap) 100 mg PO BID [facility]; Protocol Stop: 04/01/22 20:59 Last Admin: 03/26/22 08:54 Dose: 100 mg Duloxetine HCl (Duloxetine Hcl 60 Mg Cap) 60 mg PO DAILY [facility] Stop: 04/20/22 08:59 Last Admin: 03/26/22 08:54 Dose: 60 mg Enoxaparin Sodium (Enoxaparin Inj 40 Mg/0.4 Ml Syr) 40 mg SQ QAM [facility] Stop: 04/20/22 08:59 Last Admin: 03/26/22 08:53 Dose: 40 mg Folic Acid (Folic Acid 1 Mg Tab) 1 mg PO DAILY [facility] Stop: 04/20/22 08:59 Last Admin: 03/26/22 08:54 Dose: 1 mg Gabapentin (Gabapentin 800 Mg Tab) 800 mg PO TID DORY Stop: 04/20/22 00:59 Last Admin: 03/26/22 14:19 Dose: 800 mg Guaifenesin/Codeine Phosphate (Guaifenesin/Codeine 100mg/10mg 5ml Udc) 5 ml PO Q6H PRN PRN Reason: Cough Stop: 04/23/22 21:56 Last Admin: 03/26/22 14:20 Dose: 5 ml Hydrocodone Bit/Homatropine Methylb (Hydrocodone/Homatropine Syrup 5mg/1.5mg 5ml Udp) 5 ml PO Q6H PRN PRN Reason: Cough Stop: 04/04/22 12:54 Last Admin: 03/24/22 00:28 Dose: 5 ml Promethazine HCl 12.5 mg/ (Sodium Chloride) 50.5 mls @ 202 mls/hr IV Q6H PRN PRN Reason: Nausea And Vomiting Stop: 04/20/22 02:02 Dexamethasone 6 mg/ Syringe 1.5 mls @ 1 mls/min IV Q24H DORY Stop: 04/22/22 15:59 Last Admin: 03/26/22 15:49 Dose: 1 mls/min Ipratropium [place] (Ipratropium [place] Neb Soln 0.02% 2.5 Ml Vial) 0.5 mg INH Q6R DORY Stop: 04/20/22 13:29 Last Admin: 03/26/22 12:54 Dose: 0.5 mg Lactobacillus Acidophilus (Advanced Probiotic 1250 Mg Capsule) 2 cap PO DAILY DORY Stop: 04/20/22 08:59 Last Admin: 03/26/22 08:54 Dose: 2 cap Latanoprost (Latanoprost 0.005% Op Soln 2.5 Ml Btl) 1 drops OP HS DORY Stop: 04/20/22 00:59 Last Admin: 03/25/22 21:25 Dose: 1 drops Levalbuterol HCl (Levalbuterol 1.25mg/0.5ml Neb) 1.25 mg INH Q6R DORY Stop: 04/20/22 13:59 Last Admin: 03/26/22 12:54 Dose: 1.25 mg Lisinopril (Lisinopril 2.5 Mg Tab) [facility] [place] Stop: 04/20/22 08:59 Last Admin: 03/26/22 08:54 Dose: 2.5 mg Lorazepam (Lorazepam 0.5 Mg Tab) 0.25 mg PO Q6H PRN PRN Reason: Anxiety Stop: 04/24/22 15:19 Last Admin: 03/26/22 01:33 Dose: 0.25 mg Menthol (Cough Drop (Sugar Free) Jeremie 24 Jeremie/1 Box) 1 jeremie BUCCAL Q4H PRN PRN Reason: Sore Throat Stop: 04/21/22 15:02 Last Admin: 03/23/22 16:32 Dose: 1 jeremie Metoprolol Succinate (Metoprolol Succ 25mg Ext Rel Tab) [facility] [place] Stop: 04/20/22 08:59 Last Admin: 03/26/22 08:54 Dose: 25 mg Pantoprazole Sodium (Pantoprazole 40 Mg Tab) 40 [facility] [place] [facility] Stop: 04/20/22 08:59 Last Admin: 03/26/22 08:54 Dose: 40 mg Polyethylene Glycol (Polyethylene (Miralax) 17 Gm Pack) 17 gm PO DAILY PRN PRN Reason: Constipation Stop: 04/23/22 08:52
[2022-03-26] MEDS: DEXTROMETHORPHAN POLYMR COMPLX 30 MG/5 ML UDP PO PRN (19:16)
[2022-03-26] MEDS: BENZONATATE 100 MG CAPSULE PO PRN (21:18)
[2022-03-26] MEDS: NYSTATIN SUSP 500,000 U/5 ML UDC PO SCH (21:18)
[2022-03-26] MEDS: LATANOPROST 0.005% OP SOLN 2.5 ML BTL OP SCH (21:19)
[2022-03-27] MEDS: IPRATROPIUM BROMIDE NEB SOLN 0.02% 2.5 ML VIAL INH SCH ×4 (01:40→19:29)
[2022-03-27] MEDS: LEVALBUTEROL 1.25MG/0.5ML NEB INH SCH ×4 (01:40→19:29)
[2022-03-27] MEDS: LORazepam 0.5 MG TAB PO PRN ×2 (01:46→21:19)
[2022-03-27] MEDS: ACETAMINOPHEN 325 MG TAB PO PRN ×3 (01:46→14:37)
[2022-03-27 07:38] LABS: Basophils # (auto) 0.03 K/uL (0-0.2); Basophils % (auto) 0.3 %; Hematocrit (blood only) 38.4 % (34.1-44.9); Hemoglobin 13.2 g/dl (12.0-16.0); Immature Granulocytes # (auto) 0.22 K/uL (0.00-0.02); Immature Granulocytes % (auto) 2.5 %; Lymphocytes # (auto) 0.57 K/uL (1.2-3.4); Lymphocytes % (auto) 6.6 %; Mean Corpuscular Hemoglobin 33.5 pg (25.0-34.0); Mean Corpuscular Hgb Conc 34.4 g/dL (32.0-36.0); Mean Corpuscular Volume 97.5 fL (80.0-100.0); Mean Platelet Volume 8.8 fL (9.4-12.3); Monocytes # (auto) 0.34 K/uL (0.24-0.82); Monocytes % (auto) 3.9 %; Neutrophils % (auto) 86.7 %; Platelet Count 163 K/uL (130-400); RDW Standard Deviation 46.4 fL (36.4-46.3); Red Blood Count 3.94 M/uL (3.93-5.22); White Blood Count 8.66 K/ul (4.8-10.8)
[2022-03-27 08:09] LABS: BUN Creatinine Ratio 29.8 (10-20); C Reactive Protein 5.12 mg/dl (0-0.5); Calcium 8.3 mg/dl (8.5-10.1); Creatinine Clr Calc Pharmacy 95.4 ml/min; Est GFR (African American) 110.4 ml/min; Est GFR (Non-African American) 95.3 ml/min; Magnesium 1.9 mg/dl (1.7-2.4); Phosphorus 3.2 mg/dl (2.5-4.9); Potassium 3.6 mmol/L (3.5-5.1)
[2022-03-27] MEDS: ACETYLCYSTEINE 10% INHAL SOLN 4 ML **DISPENSED BY RESP. INH SCH ×2 (08:21→19:29)
[2022-03-27] MEDS ORDERED: FUROSEMIDE 40 MG/4 ML VIAL IV ONE (09:39)
[2022-03-27] MEDS: guaiFENesin/CODEINE 100MG/10MG 5ML UDC PO PRN ×2 (09:39→21:19)
[2022-03-27] MEDS: lisinopril 2.5 MG TAB PO SCH (09:47)
[2022-03-27] MEDS: FOLIC ACID 1 MG TAB PO SCH (09:48)
[2022-03-27] MEDS: ATORVASTATIN 20 MG TAB PO SCH (09:48)
[2022-03-27] MEDS: DULoxetine HCL 60 MG CAP PO SCH (09:49)
[2022-03-27] MEDS: ADVANCED PROBIOTIC 1250 MG CAPSULE PO SCH (09:49)
[2022-03-27] MEDS: PANTOprazole 40 MG TAB PO SCH (09:49)
[2022-03-27] MEDS: METOPROLOL SUCC 25MG EXT REL TAB PO SCH (09:49)
[2022-03-27] MEDS: NYSTATIN SUSP 500,000 U/5 ML UDC PO SCH ×4 (09:50→20:59)
[2022-03-27] MEDS: DOXYCYCLINE HYCLATE 100 MG CAP PO SCH ×2 (09:50→20:59)
[2022-03-27] MEDS: GABAPENTIN 800 MG TAB PO SCH ×3 (09:50→20:59)
[2022-03-27] MEDS: DICLOFENAC SOD 1% GEL 100 GM TUBE EXT SCH ×2 (09:50→23:42)
[2022-03-27] MEDS: ENOXAPARIN INJ 40 MG/0.4 ML SYR SQ SCH (09:50)
--- NOTE | 2022-03-27 10:05 | Pulmonary Consultation ---
Date of Consultation March 27, 2022 Assessment & Plan (1) Hx pulmonary embolism: (2) History of DVT of lower extremity: (3) Bilateral pneumonia: (4) Pneumonia due to COVID-19 virus: (5) Acute respiratory failure with hypoxia: Plan CT chest 03/21/2022 personally reviewed:Diffuse patchy opacities appreciated bilaterally upper and lower lobes No mediastinal lymphadenopathy -- Acute hypoxic respiratory failure Secondary to multilobar COVID-19 pneumonia COVID-19 PCR positive 03/20/2022 CRP 5.12 BNP 91 Procalcitonin negative On doxycycline. Complete the course for 5 days Patient does not qualify for Biologics given the timeline BiPAP at bedtime and as needed shortness of breath Awake proning will be beneficial Continue with incentive spirometry Flutter valve along with Mucinex --Probable LUIS BiPAP nightly and as needed shortness of breath will be beneficial -- Ex-smoker Approximately [id number] smoking history Quit at the age of 47 --History of PE and DVT In 2012 s/p anticoagulation and IVC filter Plan: Chest x-ray from today shows worsening bilateral alveolar opacities. Patient already got 40 mg of Lasix today would recommend strict in and out measurement Continue with Mucomyst, flutter valve Increase dexamethasone to 10 mg and complete the course for 10 days Would recommend sending the patient to PCU given the critical nature of patient's condition Case was discussed with Dr. Hinds Patient is agreeable to intubation if need be in future. I discussed patient's condition with granddaughter who was present outside the room as per patient's request I have personally spent 35 minutes of critical care time in the direct management of this patient. This is a life/limb threatening event. This includes time spent evaluating patient, direct bedside care, chart review, placing orders, interpretation of diagnostic studies, discussion with consultants, patient, and family members, as well as other required patient management activities. This time is exclusive of all separately billable procedures, and teaching time and separate from and in addition to any other critical care service time. Please note the above document was generated using voice recognition software. It may contain grammatical, syntax or spelling errors. History of Present Illness Attending Physician: Jacqueline Hinds MD History of Present Illness 77-year-old female was admitted to hospital because of worsening shortness of breath, she was found to be COVID-19 positive Past medical history: Hypertension, dyslipidemia, PE s/p IVC filter placement, anxiety/mood disorder Patient has been vaccinated against COVID-19 Pulmonary consult because of worsening oxygen requirement At the time of examination patient was on high flow 40 L, 85% saturating 91-92%. She was not in any respiratory distress. Was able to talk in full sentences. Did complain of cough and difficulty bringing it up. States whenever she coughs there is fits of cough and she gets really short of breath at the end of it. Denies any chest pain, no headache, no nausea, no vomiting. She did try BiPAP after I ordered it and she was able to tolerate it well. Social history: Approximately [id number] smoking history, quit at the age of 47. 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 No personal or family history of asthma Allergies Allergy/AdvReac Type Severity Reaction Status Date / Time naproxen Allergy Severe SOB, HIVES Verified 03/20/22 20:11 WITH ALEVE ibuprofen Allergy Mild HIVES Verified 03/20/22 20:11 morphine Allergy Mild itching Verified 03/20/22 20:11 levofloxacin Allergy Unknown Unknown Verified 03/20/22 20:11 Penicillins Allergy Unknown occured as Verified 03/20/22 20:11 a child, severe itching prochlorperazine Allergy Unknown "eyes Verified 03/20/22 20:11 rolled back in head", muscle twitching sulfamethoxazole Allergy Unknown Unknown Verified 03/20/22 20:11 [From Bactrim] trimethoprim [From Bactrim] Allergy Unknown Unknown Verified 03/20/22 20:11 latex Allergy blisters Verified 03/20/22 20:11 nitrofurantoin AdvReac Intermediate Nausea/vomi Verified 03/20/22 20:11 ting Home Medications Medication Instructions Recorded Confirmed Type amoxicillin 500 mg capsule 2,000 mg PO DIRECTED 03/20/22 03/20/22 History atorvastatin 20 mg tablet 20 mg PO QAM 03/20/22 03/20/22 History benazepril 10 1 tab PO QAM 03/20/22 03/20/22 History mg-hydrochlorothiazide 12.5 mg tablet betamethasone valerate 0.1 % 1 applic topical BID PRN FLARE UPS 03/20/2203/20 History topical ointment bisacodyl 5 mg tablet 10 mg PO DAILY PRN Constipation 03/20/22 03/20/22 History clotrimazole-betamethasone 1 1 applic topical DIRECTED 03/20/22 03/20/22 History %-0.05 % topical cream diclofenac sodium 1 % topical gel 1 ea topical BID 03/20/22 03/20/22 History doxycycline hyclate 100 mg tablet 100 mg PO BID 03/20/22 03/20/22 History duloxetine 60 mg capsule,delayed 60 mg PO DAILY 03/20/22 03/20/22 History release estradiol 0.01% (0.1 mg/gram) 1 applic vaginal 2XWK 03/20/22 03/20/22 History vaginal cream folic acid 1 mg tablet 1 mg PO DAILY 03/20/22 03/20/22 History gabapentin 800 mg tablet 800 mg PO TID 03/20/22 03/20/22 History latanoprost 0.005 % eye drops 0 drp ophthalmic (eye) DIRECTED 03/20/22 03/20/22 History metoprolol succinate 25 mg 25 mg PO QAM 03/20/22 03/20/22 History tablet,extended release 24 hr nystatin 100,000 unit/gram topical 1 applic topical TID 03/20/22 03/20/22 History powder (Nystop) nystatin-triamcinolone topical 1 applic topical BID PRN FLARE UPS 03/20/22 03/20/22 History cream omeprazole 40 mg capsule,delayed 40 mg PO QAM 03/20/22 03/20/22 History release phenazopyridine 95 mg tablet 95 mg PO DIRECTED PRN .URINARY 03/20/22 03/20/22 History PROBLEMS Patient History Medical History (Updated 03/27/22 @ 17:23 by Edward Robledo MD, [facility]) Anemia Diverticular disease GERD (gastroesophageal reflux disease) CONTROLLED Hiatal hernia History of DVT of lower extremity 2012, WAS ON BLOOD THINNERS X ONE MONTH; unk etiology History of kidney stones History of skin cancer removed Hx pulmonary embolism 2012; AC X ONE MONTHS Hypertension Obesity Osteoarthritis Sleep apnea "mild" no device Surgical History [place] filter in place PLACED 2012 History of appendectomy History of cholecystectomy History of colonoscopy X 2 History of esophagogastroduodenoscopy (EGD) X 2 History of hysterectomy History of left cataract surgery History of lumbar spinal fusion History of lumpectomy x 2 (benign) History of nasal surgery History of tonsillectomy History of total knee replacement RIGHT Family History Father Hypertension Other No family history of adverse response to anesthesia Social History Smoking Status: Former smoker Cigarettes Per Day: HX OF 1 PACK PER WEEK, QUIT 25 YEARS AGO; Second Hand Exposure: No; Do You Dip or Chew Tobacco: No; Tobacco Cessation Education Requested by Patient: No Hx Alcohol Use: Yes Alcohol type: beer Hx Substance Use: No Preferred Language: Panamanian Communication Ability: Effective Ops Manager Required: No Beliefs That Will Affect Care: None Current Living Situation: Alone Other Information That Helps Us Care for You: No Feels Safe at Home: Yes Safety Concerns: Feels Safe At This Time Assistive Devices: Cane Review of Systems Review of Systems: All systems reviewed & are unremarkable except as noted in HPI & below Physical Exam Physical Exam: Constitutional: No acute distress HEENT: EOMI, PERRLA Respiratory system: Decreased air entry bilaterally, no wheeze, rhonchi, positive crackles bilateral lower lobes CVS: S1-S2 positive, no murmurs or gallops Abdomen: Soft, nontender, nondistended, positive bowel sounds x4 Extremities: +2 pulses bilaterally radialis/ dorsalis pedis, no cyanosis, no edema Neuro: Awake alert oriented x3 Psych: Normal mood and affect G/U: No [place] Skin: no rashes, warm and dry Lymphatic: no cervical or axillary lymphadenopathy Results & Data Results & Data ([facility]) Vital Signs (Past 12 Hours) Vital Signs Temp Pulse Resp BP Pulse Ox O2 Del Method O2 Flow Rate 03/27/22 09:38 92 Oxymask 9 03/27/22 09:36 90 Oxymask 9 03/27/22 09:30 88 L Nasal Cannula 8 03/27/22 09:27 85 L Nasal Cannula 7 03/27/22 09:25 95 H 22 84 L Nasal Cannula 5 03/27/22 09:23 36.6 C 22 148/82 H 81 L Nasal Cannula 4 03/27/22 08:21 88 22 91 Nasal Cannula 4 03/27/22 01:42 76 20 92 Nasal Cannula 4 03/26/22 22:23 37 C 75 22 131/83 92 Nasal Cannula 4 Laboratory Results 03/27/22 07:22 03/27/22 07:22 PG Care Time/CCT Total # of Minutes Spent Total Time Spent with Patient: Total time spent is greater than 50% in coordination of care (as documented) at patient's floor/unit and/or counseling patient: Coding Level of Care Code Critical Care 1st 30-74 mins Diagnoses Hx pulmonary embolism Z86.711 History of DVT of lower extremity Z86.718 Bilateral pneumonia J18.9 Pneumonia due to COVID-19 virus U07.1; J12.82 Acute respiratory failure with hypoxia J96.01 Time Spent (min) 35
[2022-03-27] MEDS ORDERED: dexAMETHasone 4 MG in SYRINGE 0 ML IV ONE (10:15)
--- NOTE | 2022-03-27 10:24 | XRay Report ---
XR chest 1V portable HISTORY: Covid 19 pneumonia COMPARISON: Chest 03/24/2022. FINDINGS: Multifocal patchy airspace opacities have slightly progressed in the interval. No pneumotho rax. No significant pleural effusions. The heart remains top normal in size. There are calcifications within the aortic knob. IMPRESSION: Interval progression of the multifocal patchy bilateral airspace opacities consistent with the patien t's known history of a viral pneumonia. ACT 112: Negative or not required by law. Electronically signed by: Mahad Cuellar M.D. 03/27/2022 10:23 AM
[2022-03-27 11:21] LABS: Allen Test Pos (Pos); Base Excess ABG 3.8 mEq/L (-9-1.8); HCO3 ABG 26 mmol/L (19-24); Oxygen Saturation ABG 87.7 % (90-95); PCO2 ABG 30 mmHg (35-46); PO2 ABG 53 mmHg (80-95)
[2022-03-27 11:24] LABS: pH ABG 7.54 (7.35-7.45)
[2022-03-27] MEDS: DEXTROMETHORPHAN POLYMR COMPLX 30 MG/5 ML UDP PO PRN (14:33)
--- NOTE | 2022-03-27 15:45 | Hospitalist Progress Note ---
Date of Service March 27, 2022 Assessment & Plan (1) COVID-19: Plan: Pneumonia secondary to COVID-19 is worse with increasing shortness of breath and desaturation Chest x-ray did show increasing patchy opacities bilaterally Received 40 mg IV Lasix Has been requiring high flow oxygen to maintain saturation ABG-reviewed and has significant respiratory alkalosis Appreciate pulmonary input and recommendation Decadron doses have been increased to 10 mg IV daily Will give her on dry side Discussed with the son in detail (2) Bilateral pneumonia: Plan: Possible superimposed bacterial pneumonia 77-year-old female with PMH HTN, HLD, PE/DVT s/p IVC filter, NAFLD, anxiety, who presented to the ED for evaluation of cough and shortness of breath. On 03/15, patient tested positive for COVID-19 via home test and was given prednisone and doxycycline by urgent care provider. Patient also admitted to some occasional coughing and choking with liquids and food. Admitting CXR: Bilateral lower lung predominant airspace opacities which may represent atelectasis, pneumonia, and/or aspiration Saturating well on room air, no indication for COVID-[address] chest without contrast: Multifocal ground glass consolidation is seen throughout both lungs. Received 2 days of IV clindamycin for possible aspiration pneumonia, changed to Levaquin 750 mg PO on 03/21 for possible superimposed bacterial pneumonia Later on p.o. Levaquin was changed to p.o. doxycycline Has been receiving intravenous Decadron First sputum culture -grew Nava albicans/dubliniensis -likely nonpathogenic Pulmonary toilet with acetylcysteine nebs and DuoNebs, incentive spirometry/flutter valve. Added chest percussive therapy BID Hycodan cough syrup as needed, added Tessalon Perles Repeat CXR in AM -consistent with viral pneumonia and the repeat x-ray looks better so will not start any remdesivir As above Speech eval completed --no overt signs or symptoms of aspiration or dysphagia. Patient educated on aspiration and GERD precautions. [employer] recommending regular diet with thin liquids. PT/OT Mild hematuria Denies urinary symptoms Urinalysis ordered with urine culture-pending (3) Hypertension: Plan: BP controlled, continue metoprolol On lisinopril as patient's home benazepril is nonformulary Continue to hold HCTZ while acutely ill (4) Hx pulmonary embolism: (5) History of DVT of lower extremity: Plan: S/p IVC filter, no longer on anticoagulation BL LE Doppler negative for DVT Continue Lovenox subcutaneous for DVT prophylaxis (6) DVT prophylaxis: Plan: SQ Lovenox Plan plan of care discussed with patient and her granddaughter Terry over the phone in detail and at length all questions answered she is understanding, agreeable, comfortable with the plan of care Admission and Anticipated Discharge Date Admission Date: March 20, 2022 Subjective 03/26/2022 The patient was seen and examined in medical floor and in the COVID room She has been fully vaccinated and complains to have cough with productive of whitish phlegm Denies any fever and or chills Her SOB seems to be improving 03/27/2022 The patient was seen and examined in medical floor and in the COVID room She was noted to be very short of breath with extreme desaturation this morning Required high flow nasal cannula oxygen and still requiring When I saw her she was feeling much better but is still requiring high flow ox ygen Review of Systems Review of Systems: All systems reviewed and are unremarkable except as noted below Respiratory: Respiratory distress at rest with cough Physical Exam Physical Exam: Lying in bed propped up with severe shortness of breath Constitutional: well developed, well nourished, + ill appearing and + obese Eyes: PERRL, conjunctivae normal, anicteric sclerae ENMT: external ear and nose normal, oropharynx normal Neck: trachea midline, no thyromegaly Respiratory: + respiratory distress (Moderate to severe) Auscultation: + diminished lung sounds and + crackles (Occasional crackles at the bases); no wheezes Cardiovascular: Rate/Rhythm: regular rate and regular rhythm; not tachycardic Heart Sounds: normal S1 and normal S2; no murmur Extremities: + edema (Trace edema bilaterally) Gastrointestinal (Abdomen): Inspection/Auscultation: normal bowel sounds; abdomen not distended Percussion/Palpation: abdomen soft; abdomen nontender Musculoskeletal: No acute arthritis in any joint Neurologic: Alert awake and oriented x3. No focal sensory or no motor deficit appreciated Psychiatric: A+Ox3, euthymic affect Lymphatic: no cervical or axillary lymphadenopathy Results & Data Results & Data ([facility]) Vital Signs (Past 12 Hours) Vital Signs Temp Pulse Pulse Resp BP Pulse Ox O2 Del Method 03/27/22 15:15 77 26 H 97 03/27/22 11:00 High Flow Nasal Cannula 03/27/22 13:44 80 20 93 High Flow Nasal Cannula 03/27/22 11:02 94 H 26 H 91 High Flow Nasal Cannula 03/27/22 09:38 92 Oxymask 03/27/22 09:36 90 Oxymask 03/27/22 09:30 88 L Nasal Cannula 03/27/22 09:27 85 L Nasal Cannula 03/27/22 09:25 95 H 22 84 L Nasal Cannula 03/27/22 09:23 36.6 C 22 148/82 H 81 L Nasal Cannula 03/27/22 08:21 88 22 91 Nasal Cannula O2 Flow Rate FiO2 03/27/22 15:15 60 03/27/22 11:00 40 100 03/27/22 13:44 40 90 03/27/22 11:02 40 100 03/27/22 09:38 9 03/27/22 09:36 9 03/27/22 09:30 8 03/27/22 09:27 7 03/27/22 09:25 5 03/27/22 09:23 4 03/27/22 08:21 4 Laboratory Results Short CBC 03/27/22 Range/Units 07:22 WBC 8.66 (4.8-10.8) K/ul Hgb 13.2 (12.0-16.0) g/dl Hct 38.4 (34.1-44.9) % Plt Count 163 (130-400) K/uL BMP 03/27/22 07:22 Sodium 142 Potassium 3.6 Chloride 105 Carbon Dioxide 32 BUN 14 Creatinine 0.47 L Glucose 129 H Calcium 8.3 L Medications Administered Current Inpatient Medications Acetaminophen (Acetaminophen 325 Mg Tab) 650 mg PO Q4H PRN PRN Reason: pain/fever Stop: 04/20/22 02:02 Last Admin: 03/27/22 14:37 Dose: 650 mg Acetylcysteine (Acetylcysteine 10% Inhal Soln 4 Ml Dispensed By Resp.) 3 ml INH BID [facility] Stop: 04/20/22 13:59 Last Admin: 03/27/22 08:21 Dose: 3 ml Atorvastatin Calcium (Atorvastatin 20 Mg Tab) 20 mg PO QAM DORY Stop: 04/20/22 08:59 Last Admin: 03/27/22 09:48 Dose: 20 mg Benzonatate (Benzonatate 100 Mg Capsule) 100 mg PO TID PRN PRN Reason: Cough Stop: 04/22/22 15:31 Last Admin: 03/26/22 21:18 Dose: 100 mg Bisacodyl (Bisacodyl 5 Mg Tabec) 10 mg PO DAILY PRN PRN Reason: Constipation Stop: 04/20/22 23:51 Dextromethorphan Polymer Complex (Dextromethorphan Polymr Complx 30 Mg/5 Ml Udp) 30 mg PO Q12H PRN PRN Reason: Cough Stop: 04/23/22 08:52 Last Admin: 03/27/22 14:33 Dose: 30 mg Diclofenac Sodium (Diclofenac Sod 1% Gel 100 Gm Tube) 1 gm EXT BID [facility]; Protocol Stop: 04/20/22 08:59 Last Admin: 03/27/22 09:50 Dose: 1 gm Doxycycline Hyclate (Doxycycline Hyclate 100 Mg Cap) 100 mg PO BID [facility]; Protocol Stop: 04/01/22 20:59 Last Admin: 03/27/22 09:50 Dose: 100 mg Duloxetine HCl (Duloxetine Hcl 60 Mg Cap) 60 mg PO DAILY [facility] Stop: 04/20/22 08:59 Last Admin: 03/27/22 09:49 Dose: 60 mg Enoxaparin Sodium (Enoxaparin Inj 40 Mg/0.4 Ml Syr) 40 mg SQ QAM DORY Stop: 04/20/22 08:59 Last Admin: 03/27/22 09:50 Dose: 40 mg Folic Acid (Folic Acid 1 Mg Tab) 1 mg PO DAILY [facility] Stop: 04/20/22 08:59 Last Admin: 03/27/22 09:48 Dose: 1 mg Gabapentin (Gabapentin 800 Mg Tab) 800 mg PO TID [facility] Stop: 04/20/22 00:59 Last Admin: 03/27/22 14:32 Dose: 800 mg Guaifenesin/Codeine Phosphate (Guaifenesin/Codeine 100mg/10mg 5ml Udc) 5 ml PO Q6H PRN PRN Reason: Cough Stop: 04/23/22 21:56 Last Admin: 03/27/22 09:39 Dose: 5 ml Hydrocodone Bit/Homatropine Methylb (Hydrocodone/Homatropine Syrup 5mg/1.5mg 5ml Udp) 5 ml PO Q6H PRN PRN Reason: Cough Stop: 04/04/22 12:54 Last Admin: 03/24/22 00:28 Dose: 5 ml Promethazine HCl 12.5 mg/ (Sodium Chloride) 50.5 mls @ 202 mls/hr IV Q6H PRN PRN Reason: Nausea And Vomiting Stop: 04/20/22 02:02 Dexamethasone 10 mg/ Syringe 2.5 mls @ 1 mls/min IV Q24H DORY Stop: 04/02/22 08:59 Ipratropium Sheldon (Ipratropium Sheldon Neb Soln 0.02% 2.5 Ml Vial) 0.5 mg INH Q6R DORY Stop: 04/20/22 13:29 Last Admin: 03/27/22 13:44 Dose: 0.5 mg Lactobacillus Acidophilus (Advanced Probiotic 1250 Mg Capsule) 2 cap PO DAILY DORY Stop: 04/20/22 08:59 Last Admin: 03/27/22 09:49 Dose: 2 cap Latanoprost (Latanoprost 0.005% Op Soln 2.5 Ml Btl) 1 drops OP HS DORY Stop: 04/20/22 00:59 Last Admin: 03/26/22 21:19 Dose: 1 drops Levalbuterol HCl (Levalbuterol 1.25mg/0.5ml Neb) 1.25 mg INH Q6R DORY Stop: 04/20/22 13:59 Last Admin: 03/27/22 13:44 Dose: 1.25 mg Lisinopril (Lisinopril 2.5 Mg Tab) 2.5 mg PO QAM DORY Stop: 04/20/22 08:59 Last Admin: 03/27/22 09:47 Dose: 2.5 mg Lorazepam (Lorazepam 0.5 Mg Tab) 0.25 mg PO Q6H PRN PRN Reason: Anxiety Stop: 04/24/22 15:19 Last Admin: 03/27/22 01:46 Dose: 0.25 mg Menthol (Cough Drop (Sugar Free) Jeremie 24 Jeremie/1 Box) 1 jeremie BUCCAL Q4H PRN PRN Reason: Sore Throat Stop: 04/21/22 15:02 Last Admin: 03/23/22 16:32 Dose: 1 jeremie Metoprolol Succinate (Metoprolol Succ 25mg Ext Rel Tab) 25 mg PO QAM [facility] Stop: 04/20/22 08:59 Last Admin: 03/27/22 09:49 Dose: 25 mg Nystatin (Nystatin Susp 500,000 U/5 Ml Udc) 5 ml PO QID [facility] Stop: 04/05/22 20:59 Last Admin: 03/27/22 14:32 Dose: 5 ml Pantoprazole Sodium (Pantoprazole 40 Mg Tab) 40 mg PO QAM [facility] Stop: 04/20/22 08:59 Last Admin: 03/27/22 09:49 Dose: 40 mg Polyethylene Glycol (Polyethylene (Miralax) 17 Gm Pack) 17 gm PO DAILY PRN PRN Reason: Constipation Stop: 04/23/22 08:52
[2022-03-27] MEDS: guaiFENesin 600 MG TABCR PO SCH (20:59)
[2022-03-27] MEDS: LATANOPROST 0.005% OP SOLN 2.5 ML BTL OP SCH (23:34)
[2022-03-28] MEDS: IPRATROPIUM BROMIDE NEB SOLN 0.02% 2.5 ML VIAL INH SCH ×4 (00:35→19:33)
[2022-03-28] MEDS: LEVALBUTEROL 1.25MG/0.5ML NEB INH SCH ×4 (00:35→19:33)
[2022-03-28 06:35] LABS: Basophils # (auto) 0.03 K/uL (0-0.2); Basophils % (auto) 0.3 %; Eosinophils # (auto) 0.05 K/uL (0-0.50); Eosinophils % (auto) 0.5 %; Hematocrit (blood only) 40.8 % (34.1-44.9); Immature Granulocytes # (auto) 0.31 K/uL (0.00-0.02); Lymphocytes # (auto) 0.88 K/uL (1.2-3.4); Lymphocytes % (auto) 8.7 %; Mean Corpuscular Hgb Conc 34.3 g/dL (32.0-36.0); Mean Corpuscular Volume 96.2 fL (80.0-100.0); Mean Platelet Volume 8.9 fL (9.4-12.3); Monocytes # (auto) 0.25 K/uL (0.24-0.82); Monocytes % (auto) 2.5 %; Neutrophils # (auto) 8.65 K/uL (1.4-6.5); Platelet Count 144 K/uL (130-400); RDW Coefficient of Variation 13.2 % (11.5-14.5); RDW Standard Deviation 46.5 fL (36.4-46.3); Red Blood Count 4.24 M/uL (3.93-5.22); White Blood Count 10.17 K/ul (4.8-10.8)
[2022-03-28 06:52] LABS: BUN Creatinine Ratio 52.3 (10-20); Calcium 8.5 mg/dl (8.5-10.1); Creatinine Clr Calc Pharmacy 101.9 ml/min; Est GFR (African American) 112.8 ml/min; Est GFR (Non-African American) 97.4 ml/min; Magnesium 1.8 mg/dl (1.7-2.4); Potassium 3.3 mmol/L (3.5-5.1)
[2022-03-28] MEDS: ACETYLCYSTEINE 10% INHAL SOLN 4 ML **DISPENSED BY RESP. INH SCH ×2 (07:48→19:33)
[2022-03-28] MEDS ORDERED: POTASSIUM CHLORIDE CRTAB 20 MEQ TABCR PO STA (07:58)
[2022-03-28] MEDS ORDERED: dexAMETHasone 10 MG in SYRINGE 0 ML IV SCH (09:00)
[2022-03-28] MEDS: ATORVASTATIN 20 MG TAB PO SCH (09:09)
[2022-03-28] MEDS: DICLOFENAC SOD 1% GEL 100 GM TUBE EXT SCH ×2 (09:09→20:26)
[2022-03-28] MEDS: DOXYCYCLINE HYCLATE 100 MG CAP PO SCH ×2 (09:10→20:27)
[2022-03-28] MEDS: DULoxetine HCL 60 MG CAP PO SCH (09:11)
[2022-03-28] MEDS: FOLIC ACID 1 MG TAB PO SCH (09:12)
[2022-03-28] MEDS: GABAPENTIN 800 MG TAB PO SCH ×3 (09:12→20:27)
[2022-03-28] MEDS: ENOXAPARIN INJ 40 MG/0.4 ML SYR SQ SCH (09:12)
[2022-03-28] MEDS: guaiFENesin 600 MG TABCR PO SCH (09:13)
[2022-03-28] MEDS: lisinopril 2.5 MG TAB PO SCH (09:13)
[2022-03-28] MEDS: ADVANCED PROBIOTIC 1250 MG CAPSULE PO SCH (09:13)
[2022-03-28] MEDS: METOPROLOL SUCC 25MG EXT REL TAB PO SCH (09:14)
[2022-03-28] MEDS: NYSTATIN SUSP 500,000 U/5 ML UDC PO SCH ×4 (09:14→20:27)
[2022-03-28] MEDS: PANTOprazole 40 MG TAB PO SCH (09:15)
--- NOTE | 2022-03-28 10:26 | Pulmonology Progress Note ---
Date of Service March 28, 2022 Assessment & Plan (1) Hx pulmonary embolism: (2) History of DVT of lower extremity: (3) Bilateral pneumonia: (4) Pneumonia due to COVID-19 virus: (5) Acute respiratory failure with hypoxia: Plan CT chest 03/21/2022 personally reviewed:Diffuse patchy opacities appreciated bilaterally upper and lower lobes No mediastinal lymphadenopathy -- Acute hypoxic respiratory failure Secondary to multilobar COVID-19 pneumonia COVID-19 PCR positive 03/20/2022 CRP 5.12 --> 7.99 BNP 91 Procalcitonin negative On doxycycline. Complete the course for 5 days Patient does not qualify for Biologics given the timeline BiPAP at bedtime and as needed shortness of breath Awake proning will be beneficial Continue with incentive spirometry Flutter valve along with Mucinex --Probable LUIS BiPAP nightly and as needed shortness of breath will be beneficial -- Ex-smoker Approximately 41-pmcv-pfcc smoking history Quit at the age of 47 --History of PE and DVT In 2012 s/p anticoagulation and IVC filter Plan: In/out: -1 L, urine output 1201 Chest x-ray from today shows minimal improvement compared to the one from yest erday CRP went up a little bit. I will change her Protonix to 40 mg twice daily, give another dose of 10 mg dexamethasone overnight Patient son Smith was called and updated regarding patient's critical condition. I did go over the possibility of patient needing intubation if she needs continuous BiPAP and high oxygen. Patient understands and is agreeable to it but would like to give more try to BiPAP and high flow. I will also try to get high flow machine which has 60 L of flow if need be Case was discussed with Dr. Hinds, RN as well as RT I have personally spent 32 minutes of critical care time in the direct management of this patient. This is a life/limb threatening event. This includes time spent evaluating patient, direct bedside care, chart review, placing orders, interpretation of diagnostic studies, discussion with consultants, patient, and family members, as well as other required patient management activities. This time is exclusive of all separately billable procedures, and teaching time and separate from and in addition to any other critical care service time. Please note the above document was generated using voice recognition software. It may contain grammatical, syntax or spelling errors. Admission and Anticipated Discharge Date Admission Date: March 20, 2022 Subjective Patient seen and examined at bedside. No acute distress, no adverse events overnight. Patient was on 90% FiO2 saturating 94% on BiPAP 06/01 She was breathing in the low to mid 20s. She was able to talk in full sentences through the BiPAP mask. I was able to gradually go down to FiO2 60% while talking to her and she was still able to maintain her saturation 90-91% She has been able to bring up the phlegm. Denies any mopped assist No chest pain, no headache, no nausea, no vomiting She is unfortunately not able to do awake proning Review of Systems Review of Systems: All systems reviewed & are unremarkable except as noted in Subjective Physical Exam Physical Exam: Constitutional: No acute distress HEENT: EOMI, PERRLA Respiratory system: Decreased air entry bilaterally, no wheeze, rhonchi, positive crackles bilateral lower lobes CVS: S1-S2 positive, no murmurs or gallops Abdomen: Soft, nontender, nondistended, positive bowel sounds x4 Extremities: +2 pulses bilaterally radialis/ dorsalis pedis, no cyanosis, no edema Neuro: Awake alert oriented x3 Psych: Normal mood and affect G/U: No Cabezas Skin: no rashes, warm and dry Lymphatic: no cervical or axillary lymphadenopathy Results & Data Results & Data ([facility]) Vital Signs (Past 12 Hours) Vital Signs Temp Pulse Pulse Pulse Resp BP BP 03/28/22 08:00 03/28/22 06:58 110 H 03/28/22 07:48 87 28 H 03/28/22 07:48 87 28 H 03/28/22 07:40 37.3 C 82 32 H 151/95 H 03/28/22 05:39 36.6 C 86 20 155/76 H 03/28/22 02:55 71 30 H 03/28/22 00:37 71 34 H 03/28/22 00:36 03/27/22 23:37 36.8 C 74 18 144/80 H 03/27/22 22:43 71 32 H Pulse Ox O2 Del Method FiO2 03/28/22 08:00 BiPAP 100 03/28/22 06:58 03/28/22 07:48 947 H BiPAP 80 03/28/22 07:48 94 80 03/28/22 07:40 94 BiPAP 100 03/28/22 05:39 91 BiPAP 03/28/22 02:55 90 60 03/28/22 00:37 91 BiPAP 55 03/28/22 00:36 55 03/27/22 23:37 92 BiPAP 03/27/22 22:43 95 50 Laboratory Results 03/28/22 06:15 03/28/22 06:15 PG Care Time/CCT Total # of Minutes Spent Total Time Spent with Patient: Total time spent is greater than 50% in coordination of care (as documented) at patient's floor/unit and/or counseling patient: Coding Level of Care Code Critical Care 1st 30-74 mins Diagnoses Hx pulmonary embolism Z86.711 History of DVT of lower extremity Z86.718 Bilateral pneumonia J18.9 Pneumonia due to COVID-19 virus U07.1; J12.82 Acute respiratory failure with hypoxia J96.01 Time Spent (min) 32
--- NOTE | 2022-03-28 11:39 | XRay Report ---
XR chest 1V portable HISTORY: Pneumonia. Follow-up. COMPARISON: Chest 03/27/2022. FINDINGS: No change in the multifocal bilateral airspace opacities. The heart is normal in size. No p leural effusions. No pneumothorax. IMPRESSION: No change in the multifocal patchy bilateral airspace opacity consistent with a viral pneumonia. ACT 112: Negative or not required by law. Electronically signed by: Mahad Cuellar M.D. 03/28/2022 11:37 AM
[2022-03-28] MEDS: BENZONATATE 100 MG CAPSULE PO PRN (11:44)
[2022-03-28] MEDS ORDERED: LEVALBUTEROL HCL 1.25 MG/3 ML NEB ONE (11:59)
[2022-03-28] MEDS: guaiFENesin/CODEINE 100MG/10MG 5ML UDC PO PRN (13:45)
--- NOTE | 2022-03-28 16:35 | Hospitalist Progress Note ---
Date of Service March 28, 2022 Assessment & Plan (1) COVID-19: Plan: Pneumonia secondary to COVID-19 is worse with increasing shortness of breath and desaturation Chest x-ray did show increasing patchy opacities bilaterally Received 40 mg IV Lasix Has been requiring high flow oxygen to maintain saturation ABG-reviewed and has significant respiratory alkalosis Appreciate pulmonary input and recommendation Decadron doses have been increased to 10 mg IV daily Will give her on dry side Discussed with the son in detail Worsening of COVID pneumonia and the patient is transferred to telemetry unit Requiring high flow oxygen with BiPAP in between Clinically much better and remained in negative balance of 1 L so far Will give 20 of Lasix IV today and monitor PRP Discussed with the family members in detail again today (2) Bilateral pneumonia: Plan: Possible superimposed bacterial pneumonia 77-year-old female with PMH HTN, HLD, PE/DVT s/p IVC filter, NAFLD, anxiety, who presented to the ED for evaluation of cough and shortness of breath. On 03/15, patient tested positive for COVID-19 via home test and was given prednisone and doxycycline by urgent care provider. Patient also admitted to some occasional coughing and choking with liquids and food. Admitting CXR: Bilateral lower lung predominant airspace opacities which may represent atelectasis, pneumonia, and/or aspiration Saturating well on room air, no indication for COVID-[address] chest without contrast: Multifocal ground glass consolidation is seen throughout both lungs. Received 2 days of IV clindamycin for possible aspiration pneumonia, changed to Levaquin 750 mg PO on 03/21 for possible superimposed bacterial pneumonia Later on p.o. Levaquin was changed to p.o. doxycycline Has been receiving intravenous Decadron First sputum culture -grew Nava albicans/dubliniensis -likely nonpathogenic Pulmonary toilet with acetylcysteine nebs and DuoNebs, incentive spirometry/flutter valve. Added chest percussive therapy BID Hycodan cough syrup as needed, added Tessalon Perles Repeat CXR in AM -consistent with viral pneumonia and the repeat x-ray looks better so will not start any remdesivir As above Doxycycline course is finished Speech eval completed --no overt signs or symptoms of aspiration or dysphagia. Patient educated on aspiration and GERD precautions. RECORDS MANAGER recommending regular diet with thin liquids. PT/OT Mild hematuria Denies urinary symptoms Urinalysis ordered-was unremarkable and culture was not sent (3) Hypertension: Plan: BP controlled, continue metoprolol On lisinopril as patient's home benazepril is nonformulary Continue to hold HCTZ while acutely ill Blood pressure remains stable (4) Hx pulmonary embolism: (5) History of DVT of lower extremity: Plan: S/p IVC filter, no longer on anticoagulation BL LE Doppler negative for DVT Continue Lovenox subcutaneous for DVT prophylaxis (6) DVT prophylaxis: Plan: SQ Lovenox Plan plan of care discussed with patient and her granddaughter Terry over the phone in detail and at length all questions answered she is understanding, agreeable, comfortable with the plan of care Admission and Anticipated Discharge Date Admission Date: March 20, 2022 Subjective 03/26/2022 The patient was seen and examined in medical floor and in the COVID room She has been fully vaccinated and complains to have cough with productive of w hitish phlegm Denies any fever and or chills Her SOB seems to be improving 03/27/2022 The patient was seen and examined in medical floor and in the COVID room She was noted to be very short of breath with extreme desaturation this morning Required high flow nasal cannula oxygen and still requiring When I saw her she was feeling much better but is still requiring high flow oxygen 03/28/2022 The patient was seen and examined in telemetry unit and in the COVID room She has been feeling a little better with decreasing cough and decreasing shortness of breath but is still requiring very high flow oxygen to maintain saturation Has been talking normally without any respiratory distress Denies any chest pain or palpitation Review of Systems Review of Systems: All systems reviewed and are unremarkable except as noted below Respiratory: Respiratory distress at rest with cough Physical Exam Physical Exam: Lying in bed propped up with severe shortness of breath Constitutional: well developed, well nourished, + ill appearing and + obese Eyes: PERRL, conjunctivae normal, anicteric sclerae ENMT: external ear and nose normal, oropharynx normal Neck: trachea midline, no thyromegaly Respiratory: + respiratory distress (Moderate to severe) Auscultation: + diminished lung sounds and + crackles (Occasional crackles at the bases); no wheezes Cardiovascular: Rate/Rhythm: regular rate and regular rhythm; not tachycardic Heart Sounds: normal S1 and normal S2; no murmur Extremities: + edema (Trace edema bilaterally) Gastrointestinal (Abdomen): Inspection/Auscultation: normal bowel sounds; abdomen not distended Percussion/Palpation: abdomen soft; abdomen nontender Musculoskeletal: No acute arthritis in any joint Neurologic: Alert, awake and oriented x3. No focal sensory or no motor deficit appreciated Psychiatric: A+Ox3, euthymic affect Lymphatic: no cervical or axillary lymphadenopathy Results & Data Results & Data ([facility]) Vital Signs (Past 12 Hours) Vital Signs Temp Pulse Pulse Pulse Resp BP BP 03/28/22 14:00 76 03/28/22 15:17 78 20 03/28/22 12:03 90 30 H 03/28/22 12:03 90 30 H 03/28/22 11:48 37.2 C 84 34 H 111/74 03/28/22 08:00 03/28/22 06:58 110 H 03/28/22 07:48 87 28 H 03/28/22 07:48 87 28 H 03/28/22 07:40 37.3 C 82 32 H 151/95 H 03/28/22 05:39 36.6 C 86 20 155/76 H Pulse Ox O2 Del Method O2 Flow Rate FiO2 03/28/22 14:00 03/28/22 15:17 92 High Flow Nasal Cannula 60 80 03/28/22 12:03 93 BiPAP 95 03/28/22 12:03 93 95 03/28/22 11:48 93 BiPAP 100 03/28/22 08:00 BiPAP 100 03/28/22 06:58 03/28/22 07:48 947 H BiPAP 80 03/28/22 07:48 94 80 03/28/22 07:40 94 BiPAP 100 03/28/22 05:39 91 BiPAP Laboratory Results Short CBC 03/28/22 Range/Units 06:15 WBC 10.17 (4.8-10.8) K/ul Hgb 14.0 (12.0-16.0) g/dl Hct 40.8 (34.1-44.9) % Plt Count 144 (130-400) K/uL BMP 03/28/22 06:15 Sodium 139 Potassium 3.3 L Chloride 101 Carbon Dioxide 28 BUN 23 Creatinine 0.44 L Glucose 116 H Calcium 8.5 Medications Administered Current Inpatient Medications Acetaminophen (Acetaminophen 325 Mg Tab) 650 mg PO Q4H PRN PRN Reason: pain/fever Stop: 04/20/22 02:02 Last Admin: 03/27/22 14:37 Dose: 650 mg Acetylcysteine (Acetylcysteine 10% Inhal Soln 4 Ml Dispensed By Resp.) 3 ml INH BID DORY Stop: 04/20/22 13:59 Last Admin: 03/28/22 07:48 Dose: 3 ml Atorvastatin Calcium (Atorvastatin 20 Mg Tab) 20 mg PO QAM DORY Stop: 04/20/22 08:59 Last Admin: 03/28/22 09:09 Dose: 20 mg Benzonatate (Benzonatate 100 Mg Capsule) 100 mg PO TID PRN PRN Reason: Cough Stop: 04/22/22 15:31 Last Admin: 03/28/22 11:44 Dose: 100 mg Bisacodyl (Bisacodyl 5 Mg Tabec) 10 mg PO DAILY PRN PRN Reason: Constipation Stop: 04/20/22 23:51 Dextromethorphan Polymer Complex (Dextromethorphan Polymr Complx 30 Mg/5 Ml Udp) 30 mg PO Q12H PRN PRN Reason: Cough Stop: 04/23/22 08:52 Last Admin: 03/27/22 14:33 Dose: 30 mg Diclofenac Sodium (Diclofenac Sod 1% Gel 100 Gm Tube) 1 gm EXT BID [facility]; Protocol Stop: 04/20/22 08:59 Last Admin: 03/28/22 09:09 Dose: 1 gm Doxycycline Hyclate (Doxycycline Hyclate 100 Mg Cap) 100 mg PO BID [facility]; Protocol Stop: 04/01/22 20:59 Last Admin: 03/28/22 09:10 Dose: 100 mg Duloxetine HCl (Duloxetine Hcl 60 Mg Cap) 60 mg PO DAILY [facility] Stop: 04/20/22 08:59 Last Admin: 03/28/22 09:11 Dose: 60 mg Enoxaparin Sodium (Enoxaparin Inj 40 Mg/0.4 Ml Syr) 40 mg SQ QAM [facility] Stop: 04/20/22 08:59 Last Admin: 03/28/22 09:12 Dose: 40 mg Folic Acid (Folic Acid 1 Mg Tab) 1 mg PO DAILY [facility] Stop: 04/20/22 08:59 Last Admin: 03/28/22 09:12 Dose: 1 mg Furosemide (Furosemide Inj 20 Mg/2 Ml Vial) 20 mg IV ONE ONE Stop: 03/28/22 16:26 Gabapentin (Gabapentin 800 Mg Tab) 800 mg PO TID DORY Stop: 04/20/22 00:59 Last Admin: 03/28/22 13:45 Dose: 800 mg Guaifenesin (Guaifenesin 600 Mg Tabcr) 600 mg PO Q12 [facility] Stop: 04/26/22 20:59 Last Admin: 03/28/22 09:13 Dose: 600 mg Guaifenesin/Codeine Phosphate (Guaifenesin/Codeine 100mg/10mg 5ml Udc) 5 ml PO Q6H PRN PRN Reason: Cough Stop: 04/23/22 21:56 Last Admin: 03/28/22 13:45 Dose: 5 ml Hydrocodone Bit/Homatropine Methylb (Hydrocodone/Homatropine Syrup 5mg/1.5mg 5ml Udp) 5 ml PO Q6H PRN PRN Reason: Cough Stop: 04/04/22 12:54 Last Admin: 03/24/22 00:28 Dose: 5 ml Promethazine HCl 12.5 mg/ (Sodium Chloride) 50.5 mls @ 202 mls/hr IV Q6H PRN PRN Reason: Nausea And Vomiting Stop: 04/20/22 02:02 Dexamethasone 10 mg/ Syringe 2.5 mls @ 1 mls/min IV Q24H [facility] Stop: 04/02/22 08:59 Last Admin: 03/28/22 09:09 Dose: 1 mls/min Pantoprazole Sodium 40 mg/ (Syringe) 10 mls @ 5 mls/min IV BID DORY Stop: 04/27/22 17:59 Dexamethasone 10 mg/ Syringe 2.5 mls @ 1 mls/min IV ONE ONE Stop: 03/28/22 18:02 Ipratropium [place] (Ipratropium [place] Neb Soln 0.02% 2.5 Ml Vial) 0.5 mg INH Q6R [facility] Stop: 04/20/22 13:29 Last Admin: 03/28/22 12:03 Dose: 0.5 mg Lactobacillus Acidophilus (Advanced Probiotic 1250 Mg Capsule) 2 cap PO DAILY [facility] Stop: 04/20/22 08:59 Last Admin: 03/28/22 09:13 Dose: 2 cap Latanoprost (Latanoprost 0.005% Op Soln 2.5 Ml Btl) 1 drops OP HS [facility] Stop: 04/20/22 00:59 Last Admin: 03/27/22 23:34 Dose: 1 drops Levalbuterol HCl (Levalbuterol 1.25mg/0.5ml Neb) 1.25 mg INH Q6R [facility] Stop: 04/20/22 13:59 Last Admin: 03/28/22 12:38 Dose: Not Given Lisinopril (Lisinopril 2.5 Mg Tab) 2.5 mg PO QAM [facility] Stop: 04/20/22 08:59 Last Admin: 03/28/22 09:13 Dose: 2.5 mg Lorazepam (Lorazepam 0.5 Mg Tab) 0.25 mg PO Q6H PRN PRN Reason: Anxiety Stop: 04/24/22 15:19 Last Admin: 03/27/22 21:19 Dose: 0.25 mg Menthol (Cough Drop (Sugar Free) Jeremie 24 Jeremie/1 Box) 1 jeremie BUCCAL Q4H PRN PRN Reason: Sore Throat Stop: 04/21/22 15:02 Last Admin: 03/23/22 16:32 Dose: 1 jeremie Metoprolol Succinate (Metoprolol Succ 25mg Ext Rel Tab) 25 mg PO QAM [facility] Stop: 04/20/22 08:59 Last Admin: 03/28/22 09:14 Dose: 25 mg Nystatin (Nystatin Susp 500,000 U/5 Ml Udc) 5 ml PO QID [facility] Stop: 04/05/22 20:59 Last Admin: 03/28/22 13:45 Dose: 5 ml Polyethylene Glycol (Polyethylene (Miralax) 17 Gm Pack) 17 gm PO DAILY PRN PRN Reason: Constipation Stop: 04/23/22 08:52
[2022-03-28] MEDS ORDERED: FUROSEMIDE INJ 20 MG/2 ML VIAL IV ONE (16:45)
[2022-03-28] MEDS: PANTOprazole 40 MG in SYRINGE 0 ML IV SCH (17:12)
[2022-03-28] MEDS ORDERED: dexAMETHasone 10 MG in SYRINGE 0 ML IV ONE (18:00)
[2022-03-28] MEDS: LATANOPROST 0.005% OP SOLN 2.5 ML BTL OP SCH (20:26)
[2022-03-28] MEDS: DEXTROMETHORPHAN POLYMR COMPLX 30 MG/5 ML UDP PO PRN (20:27)
[2022-03-28] MEDS: LORazepam 0.5 MG TAB PO PRN (22:01)
[2022-03-28] MEDS: guaiFENesin/CODEINE 100MG/10MG 5ML UDC PO SCH (22:01)
[2022-03-29] MEDS: IPRATROPIUM BROMIDE NEB SOLN 0.02% 2.5 ML VIAL INH SCH ×4 (00:20→19:10)
[2022-03-29] MEDS: LEVALBUTEROL 1.25MG/0.5ML NEB INH SCH ×4 (00:21→19:10)
[2022-03-29] MEDS: guaiFENesin/CODEINE 100MG/10MG 5ML UDC PO SCH ×3 (05:44→22:02)
[2022-03-29] MEDS: ACETYLCYSTEINE 10% INHAL SOLN 4 ML **DISPENSED BY RESP. INH SCH ×2 (07:03→19:10)
[2022-03-29 07:08] LABS: BUN Creatinine Ratio 57.1 (10-20); C Reactive Protein 16.64 mg/dl (0-0.5); Calcium 8.5 mg/dl (8.5-10.1); Creatinine Clr Calc Pharmacy 89.5 ml/min; Est GFR (African American) 108.9 ml/min; Magnesium 2.1 mg/dl (1.7-2.4); Potassium 3.6 mmol/L (3.5-5.1)
[2022-03-29] MEDS: DULoxetine HCL 60 MG CAP PO SCH (08:57)
[2022-03-29] MEDS: FOLIC ACID 1 MG TAB PO SCH (08:57)
[2022-03-29] MEDS: GABAPENTIN 800 MG TAB PO SCH ×3 (08:57→20:27)
[2022-03-29] MEDS: ENOXAPARIN INJ 40 MG/0.4 ML SYR SQ SCH (08:57)
[2022-03-29] MEDS: METOPROLOL SUCC 25MG EXT REL TAB PO SCH (08:57)
[2022-03-29] MEDS: NYSTATIN SUSP 500,000 U/5 ML UDC PO SCH ×4 (08:57→20:27)
[2022-03-29] MEDS: lisinopril 2.5 MG TAB PO SCH (08:57)
[2022-03-29] MEDS: PANTOprazole 40 MG in SYRINGE 0 ML IV SCH ×2 (08:57→20:27)
[2022-03-29] MEDS: ATORVASTATIN 20 MG TAB PO SCH (08:57)
[2022-03-29] MEDS: ADVANCED PROBIOTIC 1250 MG CAPSULE PO SCH (08:57)
[2022-03-29] MEDS: DOXYCYCLINE HYCLATE 100 MG CAP PO SCH ×2 (08:57→20:27)
[2022-03-29] MEDS: dexAMETHasone 10 MG in SYRINGE 0 ML IV SCH ×2 (08:57→20:28)
[2022-03-29] MEDS: DICLOFENAC SOD 1% GEL 100 GM TUBE EXT SCH ×2 (08:58→20:28)
--- NOTE | 2022-03-29 09:01 | XRay Report ---
SINGLE VIEW CHEST CLINICAL HISTORY: Follow-up pneumonia. FINDINGS: An AP, portable, upright chest radiograph is compared to study dated 03/28/2022 and correlat ed with chest CT dated 03/21/2022. The cardiomediastinal silhouette is unremarkable noting atheroscler otic calcification of the thoracic aorta. Multifocal airspace consolidation is similar to yesterday. Trace pleural effusions are suspected. No pneumothorax is seen. The skeletal structures are osteopeni c. The bony thorax is grossly intact. IMPRESSION: Multifocal airspace consolidation is similar to yesterday. ACT 112: Negative or not required by law. Electronically signed by: Ariel Bolaños M.D. 03/29/2022 9:00 AM
--- NOTE | 2022-03-29 14:06 | Pulmonology Progress Note ---
Date of Service March 29, 2022 Assessment & Plan (1) Hx pulmonary embolism: (2) History of DVT of lower extremity: (3) Bilateral pneumonia: (4) Pneumonia due to COVID-19 virus: (5) Acute respiratory failure with hypoxia: Plan CT chest 03/21/2022 personally reviewed:Diffuse patchy opacities appreciated bilaterally upper and lower lobes No mediastinal lymphadenopathy -- Acute hypoxic respiratory failure Secondary to multilobar COVID-19 pneumonia COVID-19 PCR positive 03/20/2022 CRP 5.12 --> 7.99 --> 16.99 BNP 91 Procalcitonin negative On doxycycline. Complete the course for 5 days Patient does not qualify for Biologics given the timeline BiPAP at bedtime and as needed shortness of breath Awake proning will be beneficial but unfortunately patient is not able to lay on her belly Continue with incentive spirometry Flutter valve along with Mucinex --Probable LUIS BiPAP nightly and as needed shortness of breath will be beneficial -- Ex-smoker Approximately [id number] smoking history Quit at the age of 47 --History of PE and DVT In 2012 s/p anticoagulation and IVC filter Plan: In/out: -1 L, urine output 1285 No significant change in the alveolar opacities on the chest x-ray compared to yesterday CRP trending up, I will increase dexamethasone to 10 mg twice daily for 4 more days followed by 10 mg for 5 days and continue with pantoprazole 40 mg twice a day Case was discussed with Dr. Hinds and RN Son Smith [phone] Please note the above document was generated using voice recognition software. It may contain grammatical, syntax or spelling errors.Any formal questions or concerns about the content, text or information contained within the body of this dictation should be directly addressed to the provider for clarification. Admission and Anticipated Discharge Date Admission Date: March 20, 2022 Subjective patient seen and examined at bedside. No acute distress, no adverse events overnight Patient's grand daughter was also in the room. Patient was saturating 92-93% on high flow 60 L, 85% I was able to go down to 80% she was still saturating 90% She has been using incentive spirometry as well as flutter valve She is using BiPAP whenever she is sleeping. Not in any respiratory distress. Denies any chest pain. Good appetite. Review of Systems Review of Systems: All systems reviewed & are unremarkable except as noted in Subjective Physical Exam Physical Exam: Constitutional: No acute distress HEENT: EOMI, PERRLA Respiratory system: Decreased air entry bilaterally, no wheeze, rhonchi, positive crackles bilateral lower lobes CVS: S1-S2 positive, no murmurs or gallops Abdomen: Soft, nontender, nondistended, positive bowel sounds x4, obese Extremities: +2 pulses bilaterally radialis/ dorsalis pedis, no cyanosis, no ed maria c Neuro: Awake alert oriented x3 Psych: Normal mood and affect G/U: positive chappell Skin: no rashes, warm and dry Lymphatic: no cervical or axillary lymphadenopathy Results & Data Results & Data ([facility]) Vital Signs (Past 12 Hours) Vital Signs Temp Pulse Pulse Resp BP Pulse Ox O2 Del Method 03/29/22 12:53 77 24 92 High Flow Nasal Cannula 03/29/22 12:52 78 24 92 High Flow Nasal Cannula 03/29/22 11:36 91 High Flow Nasal Cannula 03/29/22 11:35 36.5 C 73 22 155/94 H 90 03/29/22 10:50 High Flow Nasal Cannula 03/29/22 07:00 68 03/29/22 07:51 36.7 C 75 26 H 141/84 H 92 03/29/22 07:04 73 24 90 High Flow Nasal Cannula 03/29/22 05:26 36.8 C 78 22 131/65 91 03/29/22 04:00 71 24 91 BiPAP 03/29/22 03:15 70 26 H 92 O2 Flow Rate FiO2 03/29/22 12:53 60 90 03/29/22 12:52 60 90 03/29/22 11:36 60 85 03/29/22 11:35 03/29/22 10:50 60 80 03/29/22 07:00 03/29/22 07:51 03/29/22 07:04 60 85 03/29/22 05:26 03/29/22 04:00 70 03/29/22 03:15 70 Laboratory Results 03/28/22 06:15 03/29/22 05:57 PG Care Time/CCT Total # of Minutes Spent Total Time Spent with Patient: Total time spent is greater than 50% in coordination of care (as documented) at patient's floor/unit and/or counseling patient: Coding Level of Care Code 08722 Subseq Hosp Care Lvl 3 Diagnoses Hx pulmonary embolism Z86.711 History of DVT of lower extremity Z86.718 Bilateral pneumonia J18.9 Pneumonia due to COVID-19 virus U07.1; J12.82 Acute respiratory failure with hypoxia J96.01
[2022-03-29] MEDS ORDERED: MAGNESIUM HYDROXIDE SUSP 30 ML UDC PO PRN (15:49)
--- NOTE | 2022-03-29 16:51 | Hospitalist Progress Note ---
Date of Service March 29, 2022 Assessment & Plan (1) COVID-19: Plan: Pneumonia secondary to COVID-19 is worse with increasing shortness of breath and desaturation Chest x-ray did show increasing patchy opacities bilaterally Received 40 mg IV Lasix Has been requiring high flow oxygen to maintain saturation ABG-reviewed and has significant respiratory alkalosis Appreciate pulmonary input and recommendation Decadron doses have been increased to 10 mg IV daily Will give her on dry side Discussed with the son in detail Worsening of COVID pneumonia and the patient is transferred to telemetry unit Requiring high flow oxygen with BiPAP in between Clinically much better and remained in negative balance of 1 L so far Will give 20 of Lasix IV today and monitor PRP Still requiring very high flow oxygen to maintain saturation CRP was elevated to more than 16 and Decadron doses have been increased to 10 mg twice a day as per the hr representative Patient remained stable Constipation Will give milk of magnesia as needed (2) Bilateral pneumonia: Plan: Possible superimposed bacterial pneumonia 77-year-old female with PMH HTN, HLD, PE/DVT s/p IVC filter, NAFLD, anxiety, who presented to the ED for evaluation of cough and shortness of breath. On 03/15, patient tested positive for COVID-19 via home test and was given prednisone and doxycycline by urgent care provider. Patient also admitted to some occasional coughing and choking with liquids and food. Admitting CXR: Bilateral lower lung predominant airspace opacities which may represent atelectasis, pneumonia, and/or aspiration Saturating well on room air, no indication for COVID-[address] chest without contrast: Multifocal ground glass consolidation is seen throughout both lungs. Received 2 days of IV clindamycin for possible aspiration pneumonia, changed to Levaquin 750 mg PO on 03/21 for possible superimposed bacterial pneumonia Later on p.o. Levaquin was changed to p.o. doxycycline Has been receiving intravenous Decadron First sputum culture -grew Nava albicans/dubliniensis -likely nonpathogenic Pulmonary toilet with acetylcysteine nebs and DuoNebs, incentive spirometry/flutter valve. Added chest percussive therapy BID Hycodan cough syrup as needed, added Tessalon Perles Repeat CXR in AM -consistent with viral pneumonia and the repeat x-ray looks better so will not start any remdesivir As above Doxycycline course is finished Speech eval completed --no overt signs or symptoms of aspiration or dysphagia. Patient educated on aspiration and GERD precautions. [employer]CHITECT recommending regular diet with thin liquids. We will get easy to chew diet PT/OT Mild hematuria Denies urinary symptoms Urinalysis ordered-was unremarkable and culture was not sent (3) Hypertension: Plan: BP controlled, continue metoprolol On lisinopril as patient's home benazepril is nonformulary Continue to hold HCTZ while acutely ill Blood pressure remains stable (4) Hx pulmonary embolism: (5) History of DVT of lower extremity: Plan: S/p IVC filter, no longer on anticoagulation BL LE Doppler negative for DVT Continue Lovenox subcutaneous for DVT prophylaxis (6) DVT prophylaxis: Plan: SQ Lovenox Plan plan of care discussed with patient and her granddaughter Terry over the phone in detail and at length all questions answered she is understanding, agreeable, comfortable with the plan of care Admission and Anticipated Discharge Date Admission Date: March 20, 2022 Subjective 03/26/2022 The patient was seen and examined in medical floor and in the COVID room She has been fully vaccinated and complains to have cough with productive of whitish phlegm Denies any fever and or chills Her SOB seems to be improving 03/27/2022 The patient was seen and examined in medical floor and in the COVID room She was noted to be very short of breath with extreme desaturation this morning Required high flow nasal cannula oxygen and still requiring When I saw her she was feeling much better but is still requiring high flow oxygen 03/28/2022 The patient was seen and examined in telemetry unit and in the COVID room She has been feeling a little better with decreasing cough and decreasing shortness of breath but is still requiring very high flow oxygen to maintain saturation Has been talking normally without any respiratory distress Denies any chest pain or palpitation 03/29/2022 The patient was seen and examined in telemetry unit and in the COVID room She has been feeling better but is still requiring very high flow oxygen to maintain saturation She has had an episode of choking during lunch in the diet will be changed accordingly Complains of constipation Review of Systems Review of Systems: All systems reviewed and are unremarkable except as noted below Respiratory: Respiratory distress at rest with cough Physical Exam Physical Exam: Lying in bed propped up with severe shortness of breath Constitutional: well developed, well nourished, + ill appearing and + obese Eyes: PERRL, conjunctivae normal, anicteric sclerae ENMT: external ear and nose normal, oropharynx normal Neck: trachea midline, no thyromegaly Respiratory: + respiratory distress (Moderate to severe) Auscultation: + diminished lung sounds and + crackles (Occasional crackles at the bases); no wheezes Cardiovascular: Rate/Rhythm: regular rate and regular rhythm; not tachycardic Heart Sounds: normal S1 and normal S2; no murmur Extremities: + edema (Trace edema bilaterally) Gastrointestinal (Abdomen): Inspection/Auscultation: normal bowel sounds; abdomen not distended Percussion/Palpation: abdomen soft; abdomen nontender Psychiatric: A+Ox3, euthymic affect Lymphatic: no cervical or axillary lymphadenopathy Results & Data Results & Data ([facility]) Vital Signs (Past 12 Hours) Vital Signs Temp Pulse Pulse Resp BP Pulse Ox O2 Del Method 03/29/22 15:10 79 24 92 High Flow Nasal Cannula 03/29/22 14:37 36.7 C 75 22 136/81 91 03/29/22 12:53 77 24 92 High Flow Nasal Cannula 03/29/22 12:52 78 24 92 High Flow Nasal Cannula 03/29/22 11:36 91 High Flow Nasal Cannula 03/29/22 11:35 36.5 C 73 22 155/94 H 90 03/29/22 10:50 High Flow Nasal Cannula 03/29/22 07:00 68 03/29/22 07:51 36.7 C 75 26 H 141/84 H 92 03/29/22 07:04 73 24 90 High Flow Nasal Cannula 03/29/22 05:26 36.8 C 78 22 131/65 91 O2 Flow Rate FiO2 03/29/22 15:10 60 90 03/29/22 14:37 03/29/22 12:53 60 90 03/29/22 12:52 60 90 03/29/22 11:36 60 85 03/29/22 11:35 03/29/22 10:50 60 80 03/29/22 07:00 03/29/22 07:51 03/29/22 07:04 60 85 03/29/22 05:26 Laboratory Results [facility] 03/29/22 05:57 Sodium 140 Potassium 3.6 Chloride 101 Carbon Dioxide 30 BUN 28 H Creatinine 0.49 L Glucose 169 H Calcium 8.5 Medications Administered Current Inpatient Medications Acetaminophen (Acetaminophen 325 Mg Tab) 650 mg PO Q4H PRN PRN Reason: pain/fever Stop: 04/20/22 02:02 Last Admin: 03/27/22 14:37 Dose: 650 mg Acetylcysteine (Acetylcysteine 10% Inhal Soln 4 Ml Dispensed By Resp.) 3 ml INH BID [facility] Stop: 04/20/22 13:59 Last Admin: 03/29/22 07:03 Dose: 3 ml Atorvastatin Calcium (Atorvastatin 20 Mg Tab) 20 mg PO QAM [facility] Stop: 04/20/22 08:59 Last Admin: 03/29/22 08:57 Dose: 20 mg Benzonatate (Benzonatate 100 Mg Capsule) 100 mg PO TID PRN PRN Reason: Cough Stop: 04/22/22 15:31 Last Admin: 03/28/22 11:44 Dose: 100 mg Bisacodyl (Bisacodyl 5 Mg Tabec) 10 mg PO DAILY PRN PRN Reason: Constipation Stop: 04/20/22 23:51 Dextromethorphan Polymer Complex (Dextromethorphan Polymr Complx 30 Mg/5 Ml Udp) 30 mg PO Q12H PRN PRN Reason: Cough Stop: 04/23/22 08:52 Last Admin: 03/28/22 20:27 Dose: 30 mg Diclofenac Sodium (Diclofenac Sod 1% Gel 100 Gm Tube) 1 gm EXT BID [facility]; Protocol Stop: 04/20/22 08:59 Last Admin: 03/29/22 08:58 Dose: 1 gm Doxycycline Hyclate (Doxycycline Hyclate 100 Mg Cap) 100 mg PO BID [facility]; Protocol Stop: 04/01/22 20:59 Last Admin: 03/29/22 08:57 Dose: 100 mg Duloxetine HCl (Duloxetine Hcl 60 Mg Cap) 60 mg PO DAILY [facility] Stop: 04/20/22 08:59 Last Admin: 03/29/22 08:57 Dose: 60 mg Enoxaparin Sodium (Enoxaparin Inj 40 Mg/0.4 Ml Syr) 40 mg SQ QAM [facility] Stop: 04/20/22 08:59 Last Admin: 03/29/22 08:57 Dose: 40 mg Folic Acid (Folic Acid 1 Mg Tab) 1 mg PO DAILY [facility] Stop: 04/20/22 08:59 Last Admin: 03/29/22 08:57 Dose: 1 mg Gabapentin (Gabapentin 800 Mg Tab) 800 mg PO TID [facility] Stop: 04/20/22 00:59 Last Admin: 03/29/22 14:23 Dose: 800 mg Guaifenesin/Codeine Phosphate (Guaifenesin/Codeine 100mg/10mg 5ml Udc) 5 ml PO Q8 [facility] Stop: 04/27/22 21:59 Last Admin: 03/29/22 14:23 Dose: 5 ml Hydrocodone Bit/Homatropine Methylb (Hydrocodone/Homatropine Syrup 5mg/1.5mg 5ml Udp) 5 ml PO Q6H PRN PRN Reason: Cough Stop: 04/04/22 12:54 Last Admin: 03/24/22 00:28 Dose: 5 ml Promethazine HCl 12.5 mg/ (Sodium Chloride) 50.5 mls @ 202 mls/hr IV Q6H PRN PRN Reason: Nausea And Vomiting Stop: 04/20/22 02:02 Pantoprazole Sodium 40 mg/ (Syringe) 10 mls @ 5 mls/min IV BID [facility] Stop: 04/27/22 17:59 Last Admin: 03/29/22 08:57 Dose: 5 mls/min Dexamethasone 10 mg/ Syringe 2.5 mls @ 1 mls/min IV BID [facility] Stop: 04/02/22 08:59 Last Admin: 03/29/22 08:57 Dose: 1 mls/min Ipratropium [place] (Ipratropium [place] Neb Soln 0.02% 2.5 Ml Vial) 0.5 mg INH Q6R [facility] Stop: 04/20/22 13:29 Last Admin: 03/29/22 12:51 Dose: 0.5 mg Lactobacillus Acidophilus (Advanced Probiotic 1250 Mg Capsule) 2 cap PO DAILY [facility] Stop: 04/20/22 08:59 Last Admin: 03/29/22 08:57 Dose: 2 cap Latanoprost (Latanoprost 0.005% Op Soln 2.5 Ml Btl) 1 drops OP HS [facility] Stop: 04/20/22 00:59 Last Admin: 03/28/22 20:26 Dose: 1 drops Levalbuterol HCl (Levalbuterol 1.25mg/0.5ml Neb) 1.25 mg INH Q6R [facility] Stop: 04/20/22 13:59 Last Admin: 03/29/22 12:51 Dose: 1.25 mg Lisinopril (Lisinopril 2.5 Mg Tab) 2.5 mg PO QAM [facility] Stop: 04/20/22 08:59 Last Admin: 03/29/22 08:57 Dose: 2.5 mg Lorazepam (Lorazepam 0.5 Mg Tab) 0.25 mg PO Q6H PRN PRN Reason: Anxiety Stop: 04/24/22 15:19 Last Admin: 03/28/22 22:01 Dose: 0.25 mg Magnesium Hydroxide (Magnesium Hydroxide Susp 30 Ml Udc) 30 ml PO BID PRN PRN Reason: Constipation Stop: 04/28/22 15:48 Menthol (Cough Drop (Sugar Free) Jeremie 24 Jeremie/1 Box) 1 jeremie BUCCAL Q4H PRN PRN Reason: Sore Throat Stop: 04/21/22 15:02 Last Admin: 03/23/22 16:32 Dose: 1 jeremie Metoprolol Succinate (Metoprolol Succ 25mg Ext Rel Tab) 25 mg PO QAM [facility] Stop: 04/20/22 08:59 Last Admin: 03/29/22 08:57 Dose: 25 mg Nystatin (Nystatin Susp 500,000 U/5 Ml Udc) 5 ml PO QID [facility] Stop: 04/05/22 20:59 Last Admin: 03/29/22 14:23 Dose: 5 ml Polyethylene Glycol (Polyethylene (Miralax) 17 Gm Pack) 17 gm PO DAILY PRN PRN Reason: Constipation Stop: 04/23/22 08:52
[2022-03-29] MEDS: LATANOPROST 0.005% OP SOLN 2.5 ML BTL OP SCH (20:28)
[2022-03-29] MEDS: ACETAMINOPHEN 325 MG TAB PO PRN (21:26)
[2022-03-29] MEDS: LORazepam 0.5 MG TAB PO PRN (22:02)
[2022-03-30] MEDS: LEVALBUTEROL 1.25MG/0.5ML NEB INH SCH ×4 (00:57→19:39)
[2022-03-30] MEDS: IPRATROPIUM BROMIDE NEB SOLN 0.02% 2.5 ML VIAL INH SCH ×4 (00:57→19:39)
[2022-03-30] MEDS: guaiFENesin/CODEINE 100MG/10MG 5ML UDC PO SCH ×3 (06:29→20:58)
[2022-03-30 06:58] LABS: Basophils # (auto) 0.02 K/uL (0-0.2); Basophils % (auto) 0.2 %; Hematocrit (blood only) 40.6 % (34.1-44.9); Hemoglobin 13.8 g/dl (12.0-16.0); Immature Granulocytes % (auto) 2.9 %; Lymphocytes # (auto) 0.54 K/uL (1.2-3.4); Lymphocytes % (auto) 5.3 %; Mean Corpuscular Hemoglobin 32.9 pg (25.0-34.0); Mean Corpuscular Volume 96.7 fL (80.0-100.0); Mean Platelet Volume 9.2 fL (9.4-12.3); Monocytes # (auto) 0.23 K/uL (0.24-0.82); Monocytes % (auto) 2.3 %; Neutrophils % (auto) 89.3 %; Platelet Count 132 K/uL (130-400); RDW Coefficient of Variation 12.9 % (11.5-14.5); RDW Standard Deviation 45.7 fL (36.4-46.3); White Blood Count 10.19 K/ul (4.8-10.8)
[2022-03-30] MEDS: ACETYLCYSTEINE 10% INHAL SOLN 4 ML **DISPENSED BY RESP. INH SCH ×2 (07:14→19:39)
[2022-03-30 07:23] LABS: BUN Creatinine Ratio 51.9 (10-20); Calcium 8.6 mg/dl (8.5-10.1); Creatinine Clr Calc Pharmacy 85.8 ml/min; Est GFR (African American) 106.8 ml/min; Est GFR (Non-African American) 92.2 ml/min
[2022-03-30] MEDS: dexAMETHasone 10 MG in SYRINGE 0 ML IV SCH ×2 (08:27→20:51)
[2022-03-30] MEDS: ATORVASTATIN 20 MG TAB PO SCH (08:27)
[2022-03-30] MEDS: ENOXAPARIN INJ 40 MG/0.4 ML SYR SQ SCH (08:27)
[2022-03-30] MEDS: DULoxetine HCL 60 MG CAP PO SCH (08:27)
[2022-03-30] MEDS: DOXYCYCLINE HYCLATE 100 MG CAP PO SCH ×2 (08:28→20:53)
[2022-03-30] MEDS: PANTOprazole 40 MG in SYRINGE 0 ML IV SCH ×2 (08:28→20:57)
[2022-03-30] MEDS: GABAPENTIN 800 MG TAB PO SCH ×3 (08:28→20:57)
[2022-03-30] MEDS: METOPROLOL SUCC 25MG EXT REL TAB PO SCH (08:28)
[2022-03-30] MEDS: NYSTATIN SUSP 500,000 U/5 ML UDC PO SCH ×4 (08:28→20:55)
[2022-03-30] MEDS: ADVANCED PROBIOTIC 1250 MG CAPSULE PO SCH (08:28)
[2022-03-30] MEDS: FOLIC ACID 1 MG TAB PO SCH (08:28)
[2022-03-30] MEDS: lisinopril 2.5 MG TAB PO SCH (08:28)
[2022-03-30] MEDS: DICLOFENAC SOD 1% GEL 100 GM TUBE EXT SCH ×2 (08:31→20:51)
--- NOTE | 2022-03-30 10:29 | Pulmonology Progress Note ---
Date of Service March 30, 2022 Assessment & Plan (1) Hx pulmonary embolism: (2) History of DVT of lower extremity: (3) Bilateral pneumonia: (4) Pneumonia due to COVID-19 virus: (5) Acute respiratory failure with hypoxia: Plan CT chest 03/21/2022 personally reviewed:Diffuse patchy opacities appreciated bilaterally upper and lower lobes No mediastinal lymphadenopathy -- Acute hypoxic respiratory failure Secondary to multilobar COVID-19 pneumonia COVID-19 PCR positive 03/20/2022 CRP 5.12 --> 7.99 --> 16.99 BNP 91 Procalcitonin negative On doxycycline. Complete the course for 5 days Patient does not qualify for Biologics given the timeline BiPAP at bedtime and as needed shortness of breath Awake proning will be beneficial but unfortunately patient is not able to lay on her belly Continue with incentive spirometry Flutter valve along with Mucinex --Probable LUIS BiPAP nightly and as needed shortness of breath will be beneficial -- Ex-smoker Approximately [id number] smoking history Quit at the age of 47 --History of PE and DVT In 2012 s/p anticoagulation and IVC filter Plan: In/out: -1.3 L, urine output 1500 mL Chest x-ray from today shows mild improvement compared to the one done yesterday Continue with dexamethasone 10 mg twice a day for 3 more days followed by 10 mg for 5 days Pantoprazole 40 mg twice daily Case was discussed with Dr. Hinds and RN Son Smith [phone] Please note the above document was generated using voice recognition software. It may contain grammatical, syntax or spelling errors.Any formal questions or concerns about the content, text or information contained within the body of this dictation should be directly addressed to the provider for clarification. Admission and Anticipated Discharge Date Admission Date: March 20, 2022 Subjective Patient seen and examined at bedside. No acute distress, no adverse events overnight. Did use BiPAP overnight for 8 hours. She was on 60 L 80% FiO2 with the time of examination saturation was initially 96%. I did go down to 70% but then she had bouts of coughing and she desaturated to 84%. Went up to 80% FiO2. Overall she says that she is feeling better. Has been using incentive spirometry as well as Spiriva. No hemoptysis. Able to bring up phlegm. No nausea vomiting. Fair appetite Review of Systems Review of Systems: All systems reviewed & are unremarkable except as noted in Subjective Physical Exam Physical Exam: Constitutional: No acute distress HEENT: EOMI, PERRLA Respiratory system: Decreased air entry bilaterally, no wheeze, rhonchi, positive crackles bilateral lower lobes CVS: S1-S2 positive, no murmurs or gallops Abdomen: Soft, nontender, nondistended, positive bowel sounds x4, obese Extremities: +2 pulses bilaterally radialis/ dorsalis pedis, no cyanosis, no edema Neuro: Awake alert oriented x3 Psych: Normal mood and affect G/U: positive chappell Skin: no rashes, warm and dry Lymphatic: no cervical or axillary lymphadenopathy Results & Data Results & Data ([facility]) Vital Signs (Past 12 Hours) Vital Signs Temp Pulse Pulse Pulse Resp BP Pulse Ox 03/30/22 08:59 83 22 95 03/30/22 08:56 03/30/22 08:00 64 03/30/22 07:15 77 24 94 03/30/22 03:57 64 23 95 03/30/22 03:00 36.5 C 65 22 143/78 H 95 03/30/22 00:59 64 23 94 03/30/22 00:57 64 23 94 03/29/22 23:00 69 03/29/22 22:40 37.3 C 68 26 H 160/86 H 96 O2 Del Method O2 Flow Rate FiO2 03/30/22 08:59 High Flow Nasal Cannula 03/30/22 08:56 High Flow Nasal Cannula 03/30/22 08:00 03/30/22 07:15 High Flow Nasal Cannula 60 80 03/30/22 03:57 70 03/30/22 03:00 03/30/22 00:59 BiPAP 70 03/30/22 00:57 70 03/29/22 23:00 03/29/22 22:40 Laboratory Results 03/30/22 06:24 03/30/22 06:24 PG Care Time/CCT Total # of Minutes Spent Total Time Spent with Patient: Total time spent is greater than 50% in coordination of care (as documented) at patient's floor/unit and/or counseling patient: Coding Level of Care Code 10589 Subseq Hosp Care Lvl 2 Diagnoses Hx pulmonary embolism Z86.711 History of DVT of lower extremity Z86.718 Bilateral pneumonia J18.9 Pneumonia due to COVID-19 virus U07.1; J12.82 Acute respiratory failure with hypoxia J96.01
--- NOTE | 2022-03-30 10:36 | XRay Report ---
XR chest 1V portable CLINICAL HISTORY: f/u COMPARISON STUDY: Chest CT March 21, 2022. Chest radiograph March 29, 2022. FINDINGS: No pneumothorax or pleural effusion is present. Cardiomediastinal silhouette is stable. Mul tifocal airspace opacities have slightly improved. IMPRESSION: Slight improvement in multifocal airspace opacities. ACT 112: Negative or not required by law. Electronically signed by: Raj Meek M.D. 03/30/2022 10:35 AM
--- NOTE | 2022-03-30 13:50 | Hospitalist Progress Note ---
Date of Service March 30, 2022 Assessment & Plan (1) COVID-19: Plan: Pneumonia secondary to COVID-19 is worse with increasing shortness of breath and desaturation Chest x-ray did show increasing patchy opacities bilaterally Received 40 mg IV Lasix Has been requiring high flow oxygen to maintain saturation ABG-reviewed and has significant respiratory alkalosis Appreciate pulmonary input and recommendation Decadron doses have been increased to 10 mg IV daily Will give her on dry side Discussed with the son in detail Worsening of COVID pneumonia and the patient is transferred to telemetry unit Requiring high flow oxygen with BiPAP in between Clinically much better and remained in negative balance of 1 L so far Will give 20 of Lasix IV today and monitor PRP Still requiring very high flow oxygen to maintain saturation CRP was elevated to more than 16 and Decadron doses have been increased to 10 mg twice for 3 more days and followed by 10 mg IV for 5 days Patient remained stable-chest x-ray today shows minimal improvement She still requiring high flow oxygen Constipation Will give milk of magnesia as needed Bowel movement (2) Bilateral pneumonia: Plan: Possible superimposed bacterial pneumonia 77-year-old female with PMH HTN, HLD, PE/DVT s/p IVC filter, NAFLD, anxiety, who presented to the ED for evaluation of cough and shortness of breath. On 03/15, patient tested positive for COVID-19 via home test and was given prednisone and doxycycline by urgent care provider. Patient also admitted to some occasional coughing and choking with liquids and food. Admitting CXR: Bilateral lower lung predominant airspace opacities which may represent atelectasis, pneumonia, and/or aspiration Saturating well on room air, no indication for COVID-19 directed therapies [address] CT chest without contrast: Multifocal ground glass consolidation is seen throughout both lungs. Received 2 days of IV clindamycin for possible aspiration pneumonia, changed to Levaquin 750 mg PO on 03/21 for possible superimposed bacterial pneumonia Later on p.o. Levaquin was changed to p.o. doxycycline Has been receiving intravenous Decadron First sputum culture -grew Nava albicans/dubliniensis -likely nonpathogenic Pulmonary toilet with acetylcysteine nebs and DuoNebs, incentive spirometry/flutter valve. Added chest percussive therapy BID Hycodan cough syrup as needed, added Tessalon Perles Repeat CXR in AM -consistent with viral pneumonia and the repeat x-ray looks better so will not start any remdesivir As above Doxycycline course is finished Speech eval completed --no overt signs or symptoms of aspiration or dysphagia. Patient educated on aspiration and GERD precautions. [employer]/HOSTESS recommending regular diet with thin liquids. We will get easy to chew diet PT/OT Mild hematuria Denies urinary symptoms Urinalysis ordered-was unremarkable and culture was not sent (3) Hypertension: Plan: BP controlled, continue metoprolol On lisinopril as patient's home benazepril is nonformulary Continue to hold HCTZ while acutely ill Blood pressure remains stable (4) Hx pulmonary embolism: (5) History of DVT of lower extremity: Plan: S/p IVC filter, no longer on anticoagulation BL LE Doppler negative for DVT Continue Lovenox subcutaneous for DVT prophylaxis (6) DVT prophylaxis: Plan: SQ Lovenox Plan plan of care discussed with patient and her granddaughter Terry over the phone in detail and at length all questions answered she is understanding, agreeable, comfortable with the plan of care Admission and Anticipated Discharge Date Admission Date: March 20, 2022 Subjective 03/26/2022 The patient was seen and examined in medical floor and in the COVID room She has been fully vaccinated and complains to have cough with productive of whitish phlegm Denies any fever and or chills Her SOB seems to be improving 03/27/2022 The patient was seen and examined in medical floor and in the COVID room She was noted to be very short of breath with extreme desaturation this morning Required high flow nasal cannula oxygen and still requiring When I saw her she was feeling much better but is still requiring high flow oxygen 03/28/2022 The patient was seen and examined in telemetry unit and in the COVID room She has been feeling a little better with decreasing cough and decreasing shortness of breath but is still requiring very high flow oxygen to maintain saturation Has been talking normally without any respiratory distress Denies any chest pain or palpitation 03/29/2022 The patient was seen and examined in telemetry unit and in the COVID room She has been feeling better but is still requiring very high flow oxygen to maintain saturation She has had an episode of choking during lunch in the diet will be changed accordingly Complains of constipation 03/30/2022 The patient was seen and examined in telemetry unit in the COVID room She has been feeling much better and conversing normally without any shortness of breath Still has a cough but is decreased She has been requiring high flow oxygen as of today Review of Systems Review of Systems: All systems reviewed and are unremarkable except as noted below Respiratory: Respiratory distress at rest with cough Physical Exam Physical Exam: Lying in bed propped up with severe shortness of breath Constitutional: well developed, well nourished, + ill appearing and + obese Eyes: PERRL, conjunctivae normal, anicteric sclerae ENMT: external ear and nose normal, oropharynx normal Neck: trachea midline, no thyromegaly Respiratory: + respiratory distress (Very minimal shortness of breath at rest) Auscultation: + diminished lung sounds; no crackles (Occasional crackles at the bases) and no wheezes Cardiovascular: Rate/Rhythm: regular rate and regular rhythm; not tachycardic Heart Sounds: normal S1 and normal S2; no murmur Extremities: + edema (Trace edema bilaterally) Gastrointestinal (Abdomen): Inspection/Auscultation: normal bowel sounds; abdomen not distended Percussion/Palpation: abdomen soft; abdomen nontender Musculoskeletal: No acute arthritis in any joint Neurologic: Alert, awake and oriented x3. No focal sensory or no motor deficit appreciated Psychiatric: A+Ox3, euthymic affect Lymphatic: no cervical or axillary lymphadenopathy Results & Data Results & Data ([facility]) Vital Signs (Past 12 Hours) Vital Signs Temp Pulse Pulse Pulse Resp BP BP 03/30/22 11:45 37.2 C 84 18 178/95 H 03/30/22 11:44 64 03/30/22 11:07 71 20 03/30/22 08:59 83 22 03/30/22 08:56 03/30/22 08:00 64 03/30/22 07:15 77 24 03/30/22 03:57 64 23 03/30/22 03:00 36.5 C 65 22 143/78 H Pulse Ox O2 Del Method O2 Flow Rate FiO2 03/30/22 11:45 90 High Flow Nasal Cannula 03/30/22 11:44 03/30/22 11:07 96 Nasal Cannula 60 80 03/30/22 08:59 95 High Flow Nasal Cannula 03/30/22 08:56 High Flow Nasal Cannula 03/30/22 08:00 03/30/22 07:15 94 High Flow Nasal Cannula 60 80 03/30/22 03:57 95 70 03/30/22 03:00 95 Laboratory Results Short CBC 03/30/22 Range/Units 06:24 WBC 10.19 (4.8-10.8) K/ul Hgb 13.8 (12.0-16.0) g/dl Hct 40.6 (34.1-44.9) % Plt Count 132 (130-400) K/uL BMP 03/30/22 06:24 Sodium 138 Potassium 4.0 Chloride 102 Carbon Dioxide 29 BUN 27 H Creatinine 0.52 L Glucose 169 H Calcium 8.6 Medications Administered Current Inpatient Medications Acetaminophen (Acetaminophen 325 Mg Tab) 650 mg PO Q4H PRN PRN Reason: pain/fever Stop: 04/20/22 02:02 Last Admin: 03/29/22 21:26 Dose: 650 mg Acetylcysteine (Acetylcysteine 10% Inhal Soln 4 Ml Dispensed By Resp.) 3 ml INH BID [facility] Stop: 04/20/22 13:59 Last Admin: 03/30/22 07:14 Dose: 3 ml Atorvastatin Calcium (Atorvastatin 20 Mg Tab) 20 mg PO QAM [facility] Stop: 04/20/22 08:59 Last Admin: 03/30/22 08:27 Dose: 20 mg Benzonatate (Benzonatate 100 Mg Capsule) 100 mg PO TID PRN PRN Reason: Cough Stop: 04/22/22 15:31 Last Admin: 03/28/22 11:44 Dose: 100 mg Bisacodyl (Bisacodyl 5 Mg Tabec) 10 mg PO DAILY PRN PRN Reason: Constipation Stop: 04/20/22 23:51 Dextromethorphan Polymer Complex (Dextromethorphan Polymr Complx 30 Mg/5 Ml Udp) 30 mg PO Q12H PRN PRN Reason: Cough Stop: 04/23/22 08:52 Last Admin: 03/28/22 20:27 Dose: 30 mg Diclofenac Sodium (Diclofenac Sod 1% Gel 100 Gm Tube) 1 gm EXT BID [facility]; Protocol Stop: 04/20/22 08:59 Last Admin: 03/30/22 08:31 Dose: 1 gm Doxycycline Hyclate (Doxycycline Hyclate 100 Mg Cap) 100 mg PO BID [facility]; Protocol Stop: 04/01/22 20:59 Last Admin: 03/30/22 08:28 Dose: 100 mg Duloxetine HCl (Duloxetine Hcl 60 Mg Cap) 60 mg PO DAILY [facility] Stop: 04/20/22 08:59 Last Admin: 03/30/22 08:27 Dose: 60 mg Enoxaparin Sodium (Enoxaparin Inj 40 Mg/0.4 Ml Syr) 40 mg SQ QAM [facility] Stop: 04/20/22 08:59 Last Admin: 03/30/22 08:27 Dose: 40 mg Folic Acid (Folic Acid 1 Mg Tab) 1 mg PO DAILY [facility] Stop: 04/20/22 08:59 Last Admin: 03/30/22 08:28 Dose: 1 mg Gabapentin (Gabapentin 800 Mg Tab) 800 mg PO TID [facility] Stop: 04/20/22 00:59 Last Admin: 03/30/22 13:21 Dose: 800 mg Guaifenesin/Codeine Phosphate (Guaifenesin/Codeine 100mg/10mg 5ml Udc) 5 ml PO Q8 [facility] Stop: 04/27/22 21:59 Last Admin: 03/30/22 13:24 Dose: 5 ml Hydrocodone Bit/Homatropine Methylb (Hydrocodone/Homatropine Syrup 5mg/1.5mg 5ml Udp) 5 ml PO Q6H PRN PRN Reason: Cough Stop: 04/04/22 12:54 Last Admin: 03/24/22 00:28 Dose: 5 ml Promethazine HCl 12.5 mg/ (Sodium Chloride) 50.5 mls @ 202 mls/hr IV Q6H PRN PRN Reason: Nausea And Vomiting Stop: 04/20/22 02:02 Pantoprazole Sodium 40 mg/ (Syringe) 10 mls @ 5 mls/min IV BID [facility] Stop: 04/27/22 17:59 Last Admin: 03/30/22 08:28 Dose: 5 mls/min Dexamethasone 10 mg/ Syringe 2.5 mls @ 1 mls/min IV BID [facility] Stop: 04/02/22 08:59 Last Admin: 03/30/22 08:27 Dose: 1 mls/min Ipratropium Quincy (Ipratropium Quincy Neb Soln 0.02% 2.5 Ml Vial) 0.5 mg INH Q6R [facility] Stop: 04/20/22 13:29 Last Admin: 03/30/22 07:14 Dose: 0.5 mg Lactobacillus Acidophilus (Advanced Probiotic 1250 Mg Capsule) 2 cap PO DAILY [facility] Stop: 04/20/22 08:59 Last Admin: 03/30/22 08:28 Dose: 2 cap Latanoprost (Latanoprost 0.005% Op Soln 2.5 Ml Btl) 1 drops OP HS [facility] Stop: 04/20/22 00:59 Last Admin: 03/29/22 20:28 Dose: 1 drops Levalbuterol HCl (Levalbuterol 1.25mg/0.5ml Neb) 1.25 mg INH Q6R [facility] Stop: 04/20/22 13:59 Last Admin: 03/30/22 07:14 Dose: 1.25 mg Lisinopril (Lisinopril 2.5 Mg Tab) 2.5 mg PO QAM [facility] Stop: 04/20/22 08:59 Last Admin: 03/30/22 08:28 Dose: 2.5 mg Lorazepam (Lorazepam 0.5 Mg Tab) 0.25 mg PO Q6H PRN PRN Reason: Anxiety Stop: 04/24/22 15:19 Last Admin: 03/29/22 22:02 Dose: 0.25 mg Magnesium Hydroxide (Magnesium Hydroxide Susp 30 Ml Udc) 30 ml PO BID PRN PRN Reason: Constipation Stop: 04/28/22 15:48 Menthol (Cough Drop (Sugar Free) Jeremie 24 Jeremie/1 Box) 1 jeremie BUCCAL Q4H PRN PRN Reason: Sore Throat Stop: 04/21/22 15:02 Last Admin: 03/23/22 16:32 Dose: 1 jeremie Metoprolol Succinate (Metoprolol Succ 25mg Ext Rel Tab) 25 mg PO QAM [facility] Stop: 04/20/22 08:59 Last Admin: 03/30/22 08:28 Dose: 25 mg Nystatin (Nystatin Susp 500,000 U/5 Ml Udc) 5 ml PO QID [facility] Stop: 04/05/22 20:59 Last Admin: 03/30/22 13:00 Dose: 5 ml Polyethylene Glycol (Polyethylene (Miralax) 17 Gm Pack) 17 gm PO DAILY PRN PRN Reason: Constipation Stop: 04/23/22 08:52
[2022-03-30] MEDS ORDERED: HYDROcodone/HOMATROPINE SYRUP 5MG/1.5MG 5ML UDP PO STA (15:29)
[2022-03-30] MEDS: LATANOPROST 0.005% OP SOLN 2.5 ML BTL OP SCH (20:56)
[2022-03-30] MEDS: BENZONATATE 100 MG CAPSULE PO PRN (20:57)
[2022-03-30] MEDS: LORazepam 0.5 MG TAB PO PRN (22:38)
[2022-03-31] MEDS: LEVALBUTEROL 1.25MG/0.5ML NEB INH SCH ×4 (01:14→19:44)
[2022-03-31] MEDS: IPRATROPIUM BROMIDE NEB SOLN 0.02% 2.5 ML VIAL INH SCH ×4 (01:14→19:45)
[2022-03-31] MEDS: guaiFENesin/CODEINE 100MG/10MG 5ML UDC PO SCH ×3 (05:40→20:11)
[2022-03-31 06:07] LABS: Basophils # (auto) 0.04 K/uL (0-0.2); Basophils % (auto) 0.4 %; Hematocrit (blood only) 39.5 % (34.1-44.9); Hemoglobin 13.6 g/dl (12.0-16.0); Immature Granulocytes # (auto) 0.51 K/uL (0.00-0.02); Lymphocytes # (auto) 0.46 K/uL (1.2-3.4); Lymphocytes % (auto) 4.5 %; Mean Corpuscular Hgb Conc 34.4 g/dL (32.0-36.0); Mean Corpuscular Volume 95.9 fL (80.0-100.0); Mean Platelet Volume 9.6 fL (9.4-12.3); Monocytes # (auto) 0.21 K/uL (0.24-0.82); Neutrophils # (auto) 9.07 K/uL (1.4-6.5); Neutrophils % (auto) 88.1 %; Platelet Count 127 K/uL (130-400); RDW Coefficient of Variation 12.9 % (11.5-14.5); RDW Standard Deviation 45.1 fL (36.4-46.3); Red Blood Count 4.12 M/uL (3.93-5.22); White Blood Count 10.29 K/ul (4.8-10.8)
[2022-03-31 06:25] LABS: BUN Creatinine Ratio 60.9 (10-20); C Reactive Protein 2.98 mg/dl (0-0.5); Calcium 8.6 mg/dl (8.5-10.1); Est GFR (African American) 111.2 ml/min
[2022-03-31] MEDS: ACETYLCYSTEINE 10% INHAL SOLN 4 ML **DISPENSED BY RESP. INH SCH ×2 (07:14→19:45)
--- NOTE | 2022-03-31 08:01 | Pulmonology Progress Note ---
Date of Service March 31, 2022 Assessment & Plan (1) Hx pulmonary embolism: (2) History of DVT of lower extremity: (3) Bilateral pneumonia: (4) Pneumonia due to COVID-19 virus: (5) Acute respiratory failure with hypoxia: Plan CT chest 03/21/2022 personally reviewed:Diffuse patchy opacities appreciated bilaterally upper and lower lobes No mediastinal lymphadenopathy -- Acute hypoxic respiratory failure Secondary to multilobar COVID-19 pneumonia COVID-19 PCR positive 03/20/2022 CRP 5.12 --> 7.99 --> 16.99 BNP 91 Procalcitonin negative On doxycycline. Complete the course for 5 days Patient does not qualify for Biologics given the timeline BiPAP at bedtime and as needed shortness of breath Awake proning will be beneficial but unfortunately patient is not able to lay on her belly Continue with incentive spirometry Flutter valve along with Mucinex --Probable LUIS BiPAP nightly and as needed shortness of breath will be beneficial -- Ex-smoker Approximately [id number] smoking history Quit at the age of 47 --History of PE and DVT In 2012 s/p anticoagulation and IVC filter Plan: In/out: -1.8 L, urine output 2625 Chest x-ray from today shows no significant change compared to yesterday Patient is making improvement in the right direction. If she continues to stay on this trial then I will go down to dexamethasone 10 mg as of tomorrow for 5 days Case was discussed with RN Son Smith [phone] Please note the above document was generated using voice recognition software. It may contain grammatical, syntax or spelling errors.Any formal questions or concerns about the content, text or information contained within the body of this dictation should be directly addressed to the provider for clarification. Admission and Anticipated Discharge Date Admission Date: March 20, 2022 Subjective Patient seen and examined at bedside. No acute distress, no adverse events overnight. Patient's family was in the room as well. She was saturating 94% on 60 L, 75%. I was able to go down to 70% and she was still able to maintain her saturation 91% Has been using incentive spirometry going up to 1000. Has been using flutter valve as well Denies any chest pain, no headache, no nausea, no vomiting Did complain of oral thrush lately. Review of Systems Review of Systems: All systems reviewed & are unremarkable except as noted in Subjective Physical Exam Physical Exam: Constitutional: No acute distress HEENT: EOMI, PERRLA Respiratory system: Decreased air entry bilaterally, no wheeze, rhonchi, positive crackles bilateral lower lobes CVS: S1-S2 positive, no murmurs or gallops Abdomen: Soft, nontender, nondistended, positive bowel sounds x4, obese Extremities: +2 pulses bilaterally radialis/ dorsalis pedis, no cyanosis, no edema Neuro: Awake alert oriented x3 Psych: Normal mood and affect G/U: positive chappell Skin: no rashes, warm and dry Lymphatic: no cervical or axillary lymphadenopathy Results & Data Results & Data ([facility]) Vital Signs (Past 12 Hours) Vital Signs Temp Pulse Pulse Pulse Resp BP BP 03/31/22 07:43 37.0 C 84 20 143/86 H 03/31/22 07:18 79 17 03/31/22 03:43 76 27 H 03/31/22 03:17 36 C L 68 22 147/89 H 03/31/22 01:15 74 24 03/31/22 01:14 74 24 03/30/22 23:06 36.5 C 72 16 174/76 H 03/30/22 22:51 73 03/30/22 22:51 73 28 H 03/30/22 22:45 03/30/22 20:07 36.7 C 96 H 24 143/118 H Pulse Ox O2 Del Method O2 Flow Rate FiO2 03/31/22 07:43 90 High Flow Nasal Cannula 03/31/22 07:18 75 L High Flow Nasal Cannula 60 75 03/31/22 03:43 96 70 03/31/22 03:17 97 BiPAP 70 03/31/22 01:15 95 BiPAP 70 03/31/22 01:14 95 70 03/30/22 23:06 95 BiPAP 70 03/30/22 22:51 03/30/22 22:51 95 70 03/30/22 22:45 High Flow Nasal Cannula 03/30/22 20:07 91 High Flow Nasal Cannula 60 Laboratory Results 03/31/22 05:18 03/31/22 05:18 PG Care Time/CCT Total # of Minutes Spent Total Time Spent with Patient: Total time spent is greater than 50% in coordination of care (as documented) at patient's floor/unit and/or counseling patient: Coding Level of Care Code 08041 Subseq Hosp Care Lvl 2 Diagnoses Hx pulmonary embolism Z86.711 History of DVT of lower extremity Z86.718 Bilateral pneumonia J18.9 Pneumonia due to COVID-19 virus U07.1; J12.82 Acute respiratory failure with hypoxia J96.01
[2022-03-31] MEDS: GABAPENTIN 800 MG TAB PO SCH ×3 (09:11→20:09)
[2022-03-31] MEDS: ENOXAPARIN INJ 40 MG/0.4 ML SYR SQ SCH (09:11)
[2022-03-31] MEDS: PANTOprazole 40 MG in SYRINGE 0 ML IV SCH ×2 (09:11→20:10)
[2022-03-31] MEDS: dexAMETHasone 10 MG in SYRINGE 0 ML IV SCH ×2 (09:11→20:06)
[2022-03-31] MEDS: lisinopril 2.5 MG TAB PO SCH (09:11)
[2022-03-31] MEDS: DICLOFENAC SOD 1% GEL 100 GM TUBE EXT SCH ×2 (09:12→20:07)
[2022-03-31] MEDS: NYSTATIN SUSP 500,000 U/5 ML UDC PO SCH ×4 (09:12→20:10)
[2022-03-31] MEDS: FOLIC ACID 1 MG TAB PO SCH (09:24)
[2022-03-31] MEDS: DOXYCYCLINE HYCLATE 100 MG CAP PO SCH ×2 (09:24→20:07)
[2022-03-31] MEDS: METOPROLOL SUCC 25MG EXT REL TAB PO SCH (09:24)
[2022-03-31] MEDS: DULoxetine HCL 60 MG CAP PO SCH (09:24)
[2022-03-31] MEDS: ATORVASTATIN 20 MG TAB PO SCH (09:24)
[2022-03-31] MEDS: ADVANCED PROBIOTIC 1250 MG CAPSULE PO SCH (09:25)
[2022-03-31] MEDS ORDERED: hydrALAZINE HCL 20 MG/ML VIAL IV ONE (12:07)
--- NOTE | 2022-03-31 12:37 | XRay Report ---
SINGLE VIEW CHEST CLINICAL HISTORY: Follow-up pneumonia. FINDINGS: An AP, portable, upright chest radiograph is compared to study dated 03/30/2022 and correlat ed with chest CT dated 03/21/2022. The cardiomediastinal silhouette is unremarkable noting atheroscler otic calcification of the thoracic aorta. Multifocal airspace consolidation is similar to yesterday. Trace pleural effusions are suspected. No pneumothorax is seen. The skeletal structures are osteopeni c. The bony thorax is grossly intact. IMPRESSION: Multifocal airspace consolidation is similar to yesterday. ACT 112: Negative or not required by law. Electronically signed by: Ariel Bolaños M.D. 03/31/2022 12:35 PM
[2022-03-31] MEDS: BENZONATATE 100 MG CAPSULE PO PRN ×2 (15:07→20:09)
[2022-03-31] MEDS ORDERED: FUROSEMIDE INJ 20 MG/2 ML VIAL IV ONE (16:57)
--- NOTE | 2022-03-31 16:58 | Hospitalist Progress Note ---
Date of Service March 31, 2022 Assessment & Plan (1) COVID-19: Plan: per Dr. Hinds's notes with addendum: Pneumonia secondary to COVID-19 is worse with increasing shortness of breath and desaturation Chest x-ray did show increasing patchy opacities bilaterally Received 40 mg IV Lasix Has been requiring high flow oxygen to maintain saturation ABG-reviewed and has significant respiratory alkalosis Appreciate pulmonary input and recommendation Decadron doses have been increased to 10 mg IV daily Will give her on dry side Discussed with the son in detail Worsening of COVID pneumonia and the patient is transferred to telemetry unit Requiring high flow oxygen with BiPAP in between Clinically much better and remained in negative balance of 1 L so far Will give 20 of Lasix IV today and monitor PRP Still requiring very high flow oxygen to maintain saturation CRP was elevated to more than 16 and Decadron doses have been increased to 10 mg twice for 3 more days and followed by 10 mg IV for 5 days Patient remained stable-chest x-ray today shows minimal improvement She still requiring high flow oxygen 03/31 on FiO2 75% CXR unchanged continue Decadron 10mg BID x 2 more days, then 10mg daily x 5 days Lasix 20mg IV one dose Doxycycline 100mg BID Nebs q6h, Mucomyst BID (2) Bilateral pneumonia: Plan: Possible superimposed bacterial pneumonia 77-year-old female with PMH HTN, HLD, PE/DVT s/p IVC filter, NAFLD, anxiety, who presented to the ED for evaluation of cough and shortness of breath. On 03/15, patient tested positive for COVID-19 via home test and was given prednisone and doxycycline by urgent care provider. Patient also admitted to some occasional coughing and choking with liquids and food. Admitting CXR: Bilateral lower lung predominant airspace opacities which may represent atelectasis, pneumonia, and/or aspiration Saturating well on room air, no indication for COVID-[address] chest without contrast: Multifocal ground glass consolidation is seen throughout both lungs. Received 2 days of IV clindamycin for possible aspiration pneumonia, changed to Levaquin 750 mg PO on 03/21 for possible superimposed bacterial pneumonia Later on p.o. Levaquin was changed to p.o. doxycycline Has been receiving intravenous Decadron First sputum culture -grew Nava albicans/dubliniensis -likely nonpathogenic Pulmonary toilet with acetylcysteine nebs and DuoNebs, incentive spirometry/flutter valve. Added chest percussive therapy BID Hycodan cough syrup as needed, added Tessalon Kimberli Repeat CXR in AM -consistent with viral pneumonia and the repeat x-ray looks better so will not start any remdesivir As above Doxycycline course is finished Speech eval completed --no overt signs or symptoms of aspiration or dysphagia. Patient educated on aspiration and GERD precautions. SL[employer] TRIMMER recommending regular diet with thin liquids. We will get easy to chew diet PT/OT Mild hematuria Denies urinary symptoms Urinalysis ordered-was unremarkable and culture was not sent 03/31 management per above (3) Hypertension: Plan: BP controlled, continue metoprolol On lisinopril as patient's home benazepril is nonformulary Continue to hold HCTZ while acutely ill Hypertension PRN Hydralazine (4) Hx pulmonary embolism: (5) History of DVT of lower extremity: Plan: S/p IVC filter, no longer on anticoagulation BL LE Doppler negative for DVT Continue Lovenox subcutaneous for DVT prophylaxis (6) DVT prophylaxis: Plan: SQ Lovenox Plan plan of care discussed with patient in detail and at length all questions answered she is understanding, agreeable, comfortable with the plan of care Admission and Anticipated Discharge Date Admission Date: March 20, 2022 Subjective ff up for acute hypoxic respiratory failure, etc seen resting in bed, comfortable on high flow o2 fio2 75% states breathing is okay today still has occasional dry cough no chest pain, dyspnea, palpitations, dizziness no other symptoms Review of Systems Review of Systems: all noted and negative except for above Physical Exam Physical Exam: General- oriented x 3, not in distress, speaks in sentences with no effort or accessory muscle use Eyes- anicteric Neck- no JVD Lungs- diminished but clear BS bilaterally, no rales/wheezes Heart- normal rate, regular rhythm; no murmurs Abdomen- normal bowel sounds, nondistended, soft, nontender Extremities- no pretibial edema, no calf tenderness Neuro- alert, oriented x 3; no gross focal neurologic deficits Skin- warm & dry Results & Data Results & Data ([facility]) Vital Signs (Past 12 Hours) Vital Signs Temp Pulse Pulse Pulse Resp BP BP 03/31/22 14:29 87 03/31/22 15:10 19 03/31/22 07:18 79 17 03/31/22 14:56 36.5 C 76 21 158/75 H 03/31/22 13:43 85 144/70 H 03/31/22 13:16 74 20 03/31/22 13:15 84 24 03/31/22 13:14 83 24 03/31/22 12:31 70 178/86 H 03/31/22 11:48 36.6 C 72 19 187/91 H 03/31/22 08:00 03/31/22 06:07 66 03/31/22 07:43 37.0 C 84 20 143/86 H 03/31/22 07:18 79 17 Pulse Ox O2 Del Method O2 Flow Rate FiO2 03/31/22 14:29 03/31/22 15:10 91 High Flow Nasal Cannula 60 75 03/31/22 07:18 95 High Flow Nasal Cannula 60 75 03/31/22 14:56 95 High Flow Nasal Cannula 03/31/22 13:43 03/31/22 13:16 95 High Flow Nasal Cannula 60 75 03/31/22 13:15 91 High Flow Nasal Cannula 60 75 03/31/22 13:14 91 High Flow Nasal Cannula 60 75 03/31/22 12:31 03/31/22 11:48 90 High Flow Nasal Cannula 03/31/22 08:00 High Flow Nasal Cannula 60 76 03/31/22 06:07 03/31/22 07:43 90 High Flow Nasal Cannula 03/31/22 07:18 95 High Flow Nasal Cannula 60 75 all noted and reviewed including below
[2022-03-31] MEDS: LATANOPROST 0.005% OP SOLN 2.5 ML BTL OP SCH (20:10)
[2022-03-31] MEDS: LORazepam 0.5 MG TAB PO PRN (21:58)
[2022-03-31] MEDS: hydrALAZINE HCL 20 MG/ML VIAL IV PRN (22:00)
[2022-04-01] MEDS ORDERED: LEVALBUTEROL HCL 1.25 MG/3 ML NEB ONE (00:52)
[2022-04-01] MEDS: IPRATROPIUM BROMIDE NEB SOLN 0.02% 2.5 ML VIAL INH SCH ×4 (01:14→19:26)
[2022-04-01] MEDS: LEVALBUTEROL 1.25MG/0.5ML NEB INH SCH ×4 (01:16→19:26)
[2022-04-01] MEDS: LORazepam 0.5 MG TAB PO PRN ×2 (04:22→20:50)
[2022-04-01] MEDS: guaiFENesin/CODEINE 100MG/10MG 5ML UDC PO SCH ×3 (04:22→20:49)
--- NOTE | 2022-04-01 07:40 | XRay Report ---
XR chest 1V portable CLINICAL HISTORY: f/u COMPARISON STUDY: Chest radiograph March 31, 2022. FINDINGS: Lung volumes are normal. Multifocal airspace opacities are similar to prior exam. There is no pneumothorax or pleural effusion. Cardiac size is normal. Mediastinal contours are normal. There i s no evidence for pulmonary edema. IMPRESSION: No significant change in multifocal airspace opacities. ACT 112: Negative or not required by law. Electronically signed by: Raj Meek M.D. 04/01/2022 7:38 AM
[2022-04-01] MEDS: PANTOprazole 40 MG in SYRINGE 0 ML IV SCH ×2 (08:08→20:50)
[2022-04-01] MEDS: dexAMETHasone 10 MG in SYRINGE 0 ML IV SCH (08:08)
[2022-04-01] MEDS: FOLIC ACID 1 MG TAB PO SCH (08:09)
[2022-04-01] MEDS: METOPROLOL SUCC 25MG EXT REL TAB PO SCH (08:09)
[2022-04-01] MEDS: DICLOFENAC SOD 1% GEL 100 GM TUBE EXT SCH ×2 (08:09→20:48)
[2022-04-01] MEDS: ATORVASTATIN 20 MG TAB PO SCH (08:09)
[2022-04-01] MEDS: ENOXAPARIN INJ 40 MG/0.4 ML SYR SQ SCH (08:09)
[2022-04-01] MEDS: lisinopril 2.5 MG TAB PO SCH (08:10)
[2022-04-01] MEDS: NYSTATIN SUSP 500,000 U/5 ML UDC PO SCH ×4 (08:10→20:52)
[2022-04-01] MEDS: GABAPENTIN 800 MG TAB PO SCH ×3 (08:10→20:54)
[2022-04-01] MEDS: ADVANCED PROBIOTIC 1250 MG CAPSULE PO SCH (08:10)
[2022-04-01] MEDS: DULoxetine HCL 60 MG CAP PO SCH (08:10)
[2022-04-01] MEDS: DOXYCYCLINE HYCLATE 100 MG CAP PO SCH (08:11)
[2022-04-01] MEDS: DEXTROMETHORPHAN POLYMR COMPLX 30 MG/5 ML UDP PO PRN (10:42)
--- NOTE | 2022-04-01 10:58 | Pulmonology Progress Note ---
Date of Service April 01, 2022 Assessment & Plan (1) Hx pulmonary embolism: (2) History of DVT of lower extremity: (3) Bilateral pneumonia: (4) Pneumonia due to COVID-19 virus: (5) Acute respiratory failure with hypoxia: Plan CT chest 03/21/2022 personally reviewed:Diffuse patchy opacities appreciated bilaterally upper and lower lobes No mediastinal lymphadenopathy -- Acute hypoxic respiratory failure Secondary to multilobar COVID-19 pneumonia COVID-19 PCR positive 03/20/2022 CRP 5.12 --> 7.99 --> 16.99 BNP 91 Procalcitonin negative On doxycycline. 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 If she continues to stay on this trial then I will go down to dexamethasone 10 mg as of tomorrow for 5 days I will go down on dexamethasone to 10 mg and stop it after 3-5 days given the improvement in patient's findings. Case was discussed with RN and Dr. Stas Etienne Smith [phone] Please note the above document was generated using voice recognition software. It may contain grammatical, syntax or spelling errors.Any formal questions or concerns about the content, text or information contained within the body of this dictation should be directly addressed to the provider for clarification. Admission and Anticipated Discharge Date Admission Date: March 20, 2022 Subjective Patient seen and examined at bedside. No acute distress, no adverse events overnight. Patient was doing incentive spirometry when I entered the room She was saturating 92-93% on 11 L nasal cannula. I was able to go down to 8 L and she was still saturating 91%. Overall she says she is feeling well. Has been using BiPAP nightly. Coughing up bringing up clear phlegm. No hemoptysis. Review of Systems Review of Systems: All systems reviewed & are unremarkable except as noted in Subjective Physical Exam Physical Exam: Constitutional: No acute distress HEENT: EOMI, PERRLA Respiratory system: Decreased air entry bilaterally, no wheeze, rhonchi, positive crackles bilateral lower lobes CVS: S1-S2 positive, no murmurs or gallops Abdomen: Soft, nontender, nondistended, positive bowel sounds x4, obese Extremities: +2 pulses bilaterally radialis/ dorsalis pedis, no cyanosis, no edema Neuro: Awake alert oriented x3 Psych: Normal mood and affect G/U: positive chappell Skin: no rashes, warm and dry Lymphatic: no cervical or axillary lymphadenopathy Results & Data Results & Data ([facility]) Vital Signs (Past 12 Hours) Vital Signs Temp Pulse Pulse Pulse Resp BP Pulse Ox 04/01/22 08:00 04/01/22 08:06 37.0 C 81 16 141/85 H 93 04/01/22 06:12 71 04/01/22 07:01 65 22 97 04/01/22 07:00 65 18 97 04/01/22 02:45 36.5 C 69 23 145/84 H 98 04/01/22 01:17 77 96 H 20 70 L 03/31/22 23:17 03/31/22 23:17 79 O2 Del Method O2 Flow Rate FiO2 04/01/22 08:00 Nasal Cannula 10 04/01/22 08:06 Nasal Cannula 10 04/01/22 06:12 04/01/22 07:01 70 04/01/22 07:00 BiPAP 04/01/22 02:45 BiPAP 04/01/22 01:17 BiPAP 03/31/22 23:17 BiPAP 03/31/22 23:17 Laboratory Results 03/31/22 05:18 PG Care Time/CCT Total # of Minutes Spent Total Time Spent with Patient: Total time spent is greater than 50% in coordination of care (as documented) at patient's floor/unit and/or counseling patient: Coding Level of Care Code 43557 Subseq Hosp Care Lvl 2 Diagnoses Hx pulmonary embolism Z86.711 History of DVT of lower extremity Z86.718 Bilateral pneumonia J18.9 Pneumonia due to COVID-19 virus U07.1; J12.82 Acute respiratory failure with hypoxia J96.01
[2022-04-01 10:59] LABS: BUN Creatinine Ratio 57.1 (10-20); Calcium 9.2 mg/dl (8.5-10.1); Creatinine Clr Calc Pharmacy 90.4 ml/min; Est GFR (African American) 108.9 ml/min
[2022-04-01] MEDS: hydrALAZINE HCL 20 MG/ML VIAL IV PRN (11:49)
[2022-04-01] MEDS: BENZONATATE 100 MG CAPSULE PO PRN ×2 (13:33→20:51)
--- NOTE | 2022-04-01 18:03 | Hospitalist Progress Note ---
Date of Service April 01, 2022 Assessment & Plan (1) COVID-19: Plan: per Dr. Hinds's notes with addendum: Pneumonia secondary to COVID-19 is worse with increasing shortness of breath and desaturation Chest x-ray did show increasing patchy opacities bilaterally Received 40 mg IV Lasix Has been requiring high flow oxygen to maintain saturation ABG-reviewed and has significant respiratory alkalosis Appreciate pulmonary input and recommendation Decadron doses have been increased to 10 mg IV daily Will give her on dry side Discussed with the son in detail Worsening of COVID pneumonia and the patient is transferred to telemetry unit Requiring high flow oxygen with BiPAP in between Clinically much better and remained in negative balance of 1 L so far Will give 20 of Lasix IV today and monitor PRP Still requiring very high flow oxygen to maintain saturation CRP was elevated to more than 16 and Decadron doses have been increased to 10 mg twice for 3 more days and followed by 10 mg IV for 5 days Patient remained stable-chest x-ray today shows minimal improvement She still requiring high flow oxygen 03/31 on FiO2 75% CXR unchanged continue Decadron 10mg BID x 2 more days, then 10mg daily x 5 days Lasix 20mg IV one dose Doxycycline 100mg BID Nebs q6h, Mucomyst BID 04/01 Weaned off high flow oxygen, now on nasal cannula 2 L Continue Decadron 10 mg IV daily Continue doxycycline, nebs every 6 hours, Mucomyst twice daily (2) Bilateral pneumonia: Plan: Possible superimposed bacterial pneumonia 77-year-old female with PMH HTN, HLD, PE/DVT s/p IVC filter, NAFLD, anxiety, who presented to the ED for evaluation of cough and shortness of breath. On 03/15, patient tested positive for COVID-19 via home test and was given prednisone and doxycycline by urgent care provider. Patient also admitted to some occasional coughing and choking with liquids and food. Admitting CXR: Bilateral lower lung predominant airspace opacities which may represent atelectasis, pneumonia, and/or aspiration Saturating well on room air, no indication for COVID-[address] chest without contrast: Multifocal ground glass consolidation is seen throughout both lungs. Received 2 days of IV clindamycin for possible aspiration pneumonia, changed to Levaquin 750 mg PO on 03/21 for possible superimposed bacterial pneumonia Later on p.o. Levaquin was changed to p.o. doxycycline Has been receiving intravenous Decadron First sputum culture -grew Nava albicans/dubliniensis -likely nonpathogenic Pulmonary toilet with acetylcysteine nebs and DuoNebs, incentive spirome try/flutter valve. Added chest percussive therapy BID Hycodan cough syrup as needed, added Tessalon Perles Repeat CXR in AM -consistent with viral pneumonia and the repeat x-ray looks better so will not start any remdesivir As above Doxycycline course is finished Speech eval completed --no overt signs or symptoms of aspiration or dysphagia. Patient educated on aspiration and GERD precautions. 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 We will get easy to chew diet PT/OT Mild hematuria Denies urinary symptoms Urinalysis ordered-was unremarkable and culture was not sent 04/01 management per above (3) Hypertension: Plan: BP controlled, continue metoprolol On lisinopril as patient's home benazepril is nonformulary Continue to hold HCTZ while acutely ill Hypertension PRN Hydralazine (4) Hx pulmonary embolism: (5) History of DVT of lower extremity: Plan: S/p IVC filter, no longer on anticoagulation BL LE Doppler negative for DVT Continue Lovenox subcutaneous for DVT prophylaxis (6) DVT prophylaxis: Plan: SQ Lovenox Plan plan of care discussed with patient in detail and at length all questions answered she is understanding, agreeable, comfortable with the plan of care Admission and Anticipated Discharge Date Admission Date: March 20, 2022 Subjective Follow-up for COVID-19 pneumonia, acute hypoxic respiratory failure, etc. Seen resting in bed, comfortable, not in distress On nasal cannula, 10 L Patient's granddaughter Terry at the bedside visiting Patient states she feels somewhat better today compared to yesterday Breathing is improving compared to yesterday Still having some cough productive of yellow sputum No other symptoms Review of Systems Review of Systems: all noted and negative except for above Physical Exam Physical Exam: General- oriented x 3, not in distress, speaks in sentences with no effort or accessory muscle use Eyes- anicteric Neck- no JVD Lungs- clear breath sounds diminished but clear bilaterally, no rales/wheezes Heart- normal rate, regular rhythm; no murmurs Abdomen- normal bowel sounds, nondistended, soft, nontender Extremities- no pretibial edema, no calf tenderness Neuro- alert, oriented x 3; no gross focal neurologic deficits Skin- warm & dry Results & Data Results & Data ([facility]) Vital Signs (Past 12 Hours) Vital Signs Temp Pulse Pulse Pulse Resp BP BP 04/01/22 14:15 78 04/01/22 14:52 36.6 C 75 20 136/80 04/01/22 13:35 86 140/67 04/01/22 13:06 77 19 04/01/22 11:47 37.6 C H 77 20 170/70 H 179/71 H 04/01/22 08:00 04/01/22 08:06 37.0 C 81 16 141/85 H 04/01/22 06:12 71 04/01/22 07:01 65 22 04/01/22 07:00 65 18 Pulse Ox O2 Del Method O2 Flow Rate FiO2 04/01/22 14:15 04/01/22 14:52 91 Nasal Cannula 11.0 04/01/22 13:35 04/01/22 13:06 93 Nasal Cannula 11 04/01/22 11:47 92 Nasal Cannula 10 04/01/22 08:00 Nasal Cannula 10 04/01/22 08:06 93 Nasal Cannula 10 04/01/22 06:12 04/01/22 07:01 97 70 04/01/22 07:00 97 BiPAP all noted and reviewed including below
[2022-04-01] MEDS: LATANOPROST 0.005% OP SOLN 2.5 ML BTL OP SCH (20:54)
[2022-04-02] MEDS: LEVALBUTEROL 1.25MG/0.5ML NEB INH SCH ×4 (00:35→20:13)
[2022-04-02] MEDS: IPRATROPIUM BROMIDE NEB SOLN 0.02% 2.5 ML VIAL INH SCH ×4 (00:35→20:13)
[2022-04-02] MEDS: LORazepam 0.5 MG TAB PO PRN ×2 (05:12→20:34)
[2022-04-02] MEDS: guaiFENesin/CODEINE 100MG/10MG 5ML UDC PO SCH ×3 (05:12→20:33)
[2022-04-02 06:47] LABS: BUN Creatinine Ratio 49.1 (10-20); Calcium 8.7 mg/dl (8.5-10.1); Creatinine Clr Calc Pharmacy 80.2 ml/min; Est GFR (African American) 104.9 ml/min; Est GFR (Non-African American) 90.5 ml/min; Potassium 3.6 mmol/L (3.5-5.1)
[2022-04-02] MEDS: dexAMETHasone 10 MG in SYRINGE 0 ML IV SCH (08:14)
[2022-04-02] MEDS: ENOXAPARIN INJ 40 MG/0.4 ML SYR SQ SCH (08:14)
[2022-04-02] MEDS: PANTOprazole 40 MG in SYRINGE 0 ML IV SCH ×2 (08:14→20:41)
[2022-04-02] MEDS: GABAPENTIN 800 MG TAB PO SCH ×3 (08:14→20:40)
[2022-04-02] MEDS: DULoxetine HCL 60 MG CAP PO SCH (08:15)
[2022-04-02] MEDS: DICLOFENAC SOD 1% GEL 100 GM TUBE EXT SCH ×2 (08:15→20:39)
[2022-04-02] MEDS: ATORVASTATIN 20 MG TAB PO SCH (08:15)
[2022-04-02] MEDS: METOPROLOL SUCC 25MG EXT REL TAB PO SCH (08:15)
[2022-04-02] MEDS: ADVANCED PROBIOTIC 1250 MG CAPSULE PO SCH (08:15)
[2022-04-02] MEDS: lisinopril 2.5 MG TAB PO SCH (08:15)
[2022-04-02] MEDS: FOLIC ACID 1 MG TAB PO SCH (08:16)
[2022-04-02] MEDS: NYSTATIN SUSP 500,000 U/5 ML UDC PO SCH ×4 (08:16→20:36)
--- NOTE | 2022-04-02 10:05 | Pulmonology Progress Note ---
Date of Service April 02, 2022 Assessment & Plan (1) Hx pulmonary embolism: (2) History of DVT of lower extremity: (3) Bilateral pneumonia: (4) Pneumonia due to COVID-19 virus: (5) Acute respiratory failure with hypoxia: Plan CT chest 03/21/2022 personally reviewed:Diffuse patchy opacities appreciated bilaterally upper and lower lobes No mediastinal lymphadenopathy -- Acute hypoxic respiratory failure Secondary to multilobar COVID-19 pneumonia COVID-19 PCR positive 03/20/2022 CRP 5.12 --> 7.99 --> 16.99 BNP 91 Procalcitonin negative On doxycycline. Complete the course for 5 days Patient does not qualify for Biologics given the timeline BiPAP at bedtime and as needed shortness of breath Awake proning will be beneficial but unfortunately patient is not able to lay on her belly Continue with incentive spirometry Flutter valve along with Mucinex --Probable LUIS BiPAP nightly and as needed shortness of breath will be beneficial -- Ex-smoker Approximately 50-nwco-fnej smoking history Quit at the age of 47 --History of PE and DVT In 2012 s/p anticoagulation and IVC filter Plan: In/out: -2 L, urine output 3301 Continue with dexamethasone 10 mg for 4 more days. Continue with incentive spirometry, flutter valve Case was discussed with RN and Dr. Stas Etienne Smith [phone] Please note the above document was generated using voice recognition software. It may contain grammatical, syntax or spelling errors.Any formal questions or concerns about the content, text or information contained within the body of this dictation should be directly addressed to the provider for clarification. Admission and Anticipated Discharge Date Admission Date: March 20, 2022 Subjective Patient seen and examined at bedside. No acute distress, no adverse events overnight. Patient was saturating 96% on 15 L oxygen. Was able to go down to 10 L and she was still able to maintain a saturation 91%. Denies any chest pain Has been using flutter valve as well as incentive spirometry Denies any nausea or vomiting. Fair appetite. Complains of abdominal bloating. Has been having bowel movements. Review of Systems Review of Systems: All systems reviewed & are unremarkable except as noted in Subjective Physical Exam Physical Exam: Constitutional: No acute distress HEENT: EOMI, PERRLA Respiratory system: Decreased air entry bilaterally, no wheeze, rhonchi, positive crackles bilateral lower lobes CVS: S1-S2 positive, no murmurs or gallops Abdomen: Soft, nontender, nondistended, positive bowel sounds x4, obese Extremities: +2 pulses bilaterally radialis/ dorsalis pedis, no cyanosis, no edema Neuro: Awake alert oriented x3 Psych: Normal mood and affect G/U: positive chappell Skin: no rashes, warm and dry Lymphatic: no cervical or axillary lymphadenopathy Results & Data Results & Data ([facility]) Vital Signs (Past 12 Hours) Vital Signs Temp Pulse Pulse Pulse Resp BP BP 04/02/22 08:00 04/02/22 08:12 36.4 C L 77 18 127/64 04/02/22 07:41 69 19 04/02/22 06:13 65 04/02/22 03:55 77 23 04/02/22 03:07 36.5 C 64 23 126/69 04/02/22 00:35 81 24 04/01/22 22:59 75 21 04/01/22 22:56 36.5 C 78 23 114/74 Pulse Ox O2 Del Method O2 Flow Rate FiO2 04/02/22 08:00 Nasal Cannula 15 04/02/22 08:12 91 Nasal Cannula 15 04/02/22 07:41 95 Nasal Cannula 10 04/02/22 06:13 04/02/22 03:55 94 50 04/02/22 03:07 94 BiPAP 04/02/22 00:35 97 BiPAP 60 04/01/22 22:59 94 60 04/01/22 22:56 92 Nasal Cannula 10 Laboratory Results 03/31/22 05:18 04/02/22 05:37 PG Care Time/CCT Total # of Minutes Spent Total Time Spent with Patient: Total time spent is greater than 50% in coordination of care (as documented) at patient's floor/unit and/or counseling patient: Coding Level of Care Code 52216 Subseq Hosp Care Lvl 2 Diagnoses Hx pulmonary embolism Z86.711 History of DVT of lower extremity Z86.718 Bilateral pneumonia J18.9 Pneumonia due to COVID-19 virus U07.1; J12.82 Acute respiratory failure with hypoxia J96.01
[2022-04-02] MEDS: DEXTROMETHORPHAN POLYMR COMPLX 30 MG/5 ML UDP PO PRN (12:22)
[2022-04-02] MEDS: hydrALAZINE HCL 20 MG/ML VIAL IV PRN (15:16)
[2022-04-02] MEDS: BENZONATATE 100 MG CAPSULE PO PRN ×2 (15:18→20:34)
[2022-04-02] MEDS ORDERED: FUROSEMIDE INJ 20 MG/2 ML VIAL IV ONE (16:58)
--- NOTE | 2022-04-02 16:58 | Hospitalist Progress Note ---
Date of Service April 02, 2022 Assessment & Plan (1) COVID-19: Plan: per Dr. Hinds's notes with addendum: Pneumonia secondary to COVID-19 is worse with increasing shortness of breath and desaturation Chest x-ray did show increasing patchy opacities bilaterally Received 40 mg IV Lasix Has been requiring high flow oxygen to maintain saturation ABG-reviewed and has significant respiratory alkalosis Appreciate pulmonary input and recommendation Decadron doses have been increased to 10 mg IV daily Will give her on dry side Discussed with the son in detail Worsening of COVID pneumonia and the patient is transferred to telemetry unit Requiring high flow oxygen with BiPAP in between Clinically much better and remained in negative balance of 1 L so far Will give 20 of Lasix IV today and monitor PRP Still requiring very high flow oxygen to maintain saturation CRP was elevated to more than 16 and Decadron doses have been increased to 10 mg twice for 3 more days and followed by 10 mg IV for 5 days Patient remained stable-chest x-ray today shows minimal improvement She still requiring high flow oxygen 03/31 on FiO2 75% CXR unchanged continue Decadron 10mg BID x 2 more days, then 10mg daily x 5 days Lasix 20mg IV one dose Doxycycline 100mg BID Nebs q6h, Mucomyst BID 04/01 Weaned off high flow oxygen, now on nasal cannula 10 L Continue Decadron 10 mg IV daily Continue doxycycline, nebs every 6 hours, Mucomyst twice daily 04/02 Back on nasal cannula at 10 L Discussed with pulmonology service Continue Decadron 10 mg IV daily Completed course of doxycycline Continue nebs every 6 hours, Mucomyst twice 1 dose Lasix today Repeat chest x-ray tomorrow (2) Bilateral pneumonia: Plan: Possible superimposed bacterial pneumonia 77-year-old female with PMH HTN, HLD, PE/DVT s/p IVC filter, NAFLD, anxiety, who presented to the ED for evaluation of cough and shortness of breath. On 03/15, patient tested positive for COVID-19 via home test and was given prednisone and doxycycline by urgent care provider. Patient also admitted to some occasional coughing and choking with liquids and food. Admitting CXR: Bilateral lower lung predominant airspace opacities which may represent atelectasis, pneumonia, and/or aspiration Saturating well on room air, no indication for COVID-[address] chest without contrast: Multifocal ground glass consolidation is seen throughout both lungs. Received 2 days of IV clindamycin for possible aspiration pneumonia, changed to Levaquin 750 mg PO on 03/21 for possible superimposed bacterial pneumonia Later on p.o. Levaquin was changed to p.o. doxycycline Has been receiving intravenous Decadron First sputum culture -grew Nava albicans/dubliniensis -likely nonpathogenic Pulmonary toilet with acetylcysteine nebs and DuoNebs, incentive spirometry/flutter valve. Added chest percussive therapy BID Hycodan cough syrup as needed, added Tessalon Perles Repeat CXR in AM -consistent with viral pneumonia and the repeat x-ray looks better so will not start any remdesivir As above Doxycycline course is finished Speech eval completed --no overt signs or symptoms of aspiration or dysphagia. Patient educated on aspiration and GERD precautions. 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 We will get easy to chew diet PT/OT Mild hematuria Denies urinary symptoms Urinalysis ordered-was unremarkable and culture was not sent 04/02 management per above (3) Hypertension: Plan: BP controlled, continue metoprolol On lisinopril as patient's home benazepril is nonformulary Continue to hold HCTZ while acutely ill Hypertension PRN Hydralazine (4) Hx pulmonary embolism: (5) History of DVT of lower extremity: Plan: S/p IVC filter, no longer on anticoagulation BL LE Doppler negative for DVT Continue Lovenox subcutaneous for DVT prophylaxis (6) DVT prophylaxis: Plan: SQ Lovenox Plan plan of care discussed with patient in detail and at length all questions answered she is understanding, agreeable, comfortable with the plan of care Admission and Anticipated Discharge Date Admission Date: March 20, 2022 Subjective Follow-up for COVID-19 multifocal pneumonia, respiratory failure with hypoxia, etc. Seen sitting up in bed, comfortable, not in distress in good spirits States breathing is okay Has occasional cough No chest pain No leg pain No other symptom Review of Systems Review of Systems: all noted and negative except for above Physical Exam Physical Exam: General- oriented x 3, not in distress, speaks in sentences with no effort or accessory muscle use Eyes- anicteric Neck- no JVD Lungs-diminished but clear breath sounds bilaterally, no rales/wheezes Heart- normal rate, regular rhythm; no murmurs Abdomen- normal bowel sounds, nondistended, soft, nontender Extremities- no pretibial edema, no calf tenderness Neuro- alert, oriented x 3; no gross focal neurologic deficits Skin- warm & dry Results & Data Results & Data ([facility]) Vital Signs (Past 12 Hours) Vital Signs Temp Pulse Pulse Resp BP BP Pulse Ox 04/02/22 16:25 84 144/79 H 04/02/22 15:12 36.8 C 74 22 162/99 H 164/99 H 94 04/02/22 13:03 81 18 93 04/02/22 11:52 36.4 C L 82 22 154/82 H 92 04/02/22 08:00 04/02/22 08:12 36.4 C L 77 18 127/64 91 04/02/22 07:41 69 19 95 04/02/22 06:13 65 O2 Del Method O2 Flow Rate 04/02/22 16:25 04/02/22 15:12 Nasal Cannula 15 04/02/22 13:03 Nasal Cannula 15 04/02/22 11:52 Nasal Cannula 15 04/02/22 08:00 Nasal Cannula 15 04/02/22 08:12 Nasal Cannula 15 04/02/22 07:41 Nasal Cannula 10 04/02/22 06:13 all noted and reviewed including below
[2022-04-02 17:26] LABS: Anion Gap 10.4 (3-11)
[2022-04-02] MEDS: LATANOPROST 0.005% OP SOLN 2.5 ML BTL OP SCH (20:40)
[2022-04-02] MEDS ORDERED: XOPENEX/ATROVENT 1.25mg/0.5MG NEB COMBO NEB PRN (21:34)
[2022-04-03] MEDS: LORazepam 0.5 MG TAB PO PRN ×2 (02:19→20:28)
[2022-04-03] MEDS: guaiFENesin/CODEINE 100MG/10MG 5ML UDC PO SCH ×3 (05:24→20:29)
[2022-04-03] MEDS: IPRATROPIUM BROMIDE NEB SOLN 0.02% 2.5 ML VIAL INH SCH ×4 (07:23→19:21)
[2022-04-03] MEDS: LEVALBUTEROL 1.25MG/0.5ML NEB INH SCH ×4 (07:23→19:21)
[2022-04-03] MEDS: NYSTATIN SUSP 500,000 U/5 ML UDC PO SCH ×4 (08:35→20:32)
[2022-04-03] MEDS: GABAPENTIN 800 MG TAB PO SCH ×3 (08:35→20:32)
[2022-04-03] MEDS: PANTOprazole 40 MG in SYRINGE 0 ML IV SCH ×2 (08:36→20:32)
[2022-04-03] MEDS: DICLOFENAC SOD 1% GEL 100 GM TUBE EXT SCH ×2 (08:37→20:33)
[2022-04-03] MEDS: ADVANCED PROBIOTIC 1250 MG CAPSULE PO SCH (08:37)
[2022-04-03] MEDS: METOPROLOL SUCC 25MG EXT REL TAB PO SCH (08:37)
[2022-04-03] MEDS: lisinopril 2.5 MG TAB PO SCH (08:37)
[2022-04-03] MEDS: dexAMETHasone 10 MG in SYRINGE 0 ML IV SCH (08:37)
[2022-04-03] MEDS: ENOXAPARIN INJ 40 MG/0.4 ML SYR SQ SCH (08:38)
[2022-04-03] MEDS: DULoxetine HCL 60 MG CAP PO SCH (08:38)
[2022-04-03] MEDS: FOLIC ACID 1 MG TAB PO SCH (08:38)
[2022-04-03] MEDS: ATORVASTATIN 20 MG TAB PO SCH (08:38)
--- NOTE | 2022-04-03 09:16 | XRay Report ---
XR chest 1V portable HISTORY: 77 years-old Female Follow-up COVID pneumonia acute shortness of breath COMPARISON: 04/01/2022 TECHNIQUE: AP view of the chest FINDINGS: Cardiac silhouette is enlarged. No pneumothorax. Mixed interstitial and alveolar opacities appear sim ilar to mildly worsened. No large pleural effusion. Mild right hemidiaphragmatic elevation. Degenerat daily changes of the shoulders and spine. IMPRESSION: Stable to mildly worsened mixed interstitial and alveolar opacities suggestive of multifo liang pneumonia. ACT 112: Negative or not required by law. The above report was generated using voice recognition software. It may contain grammatical, syntax o r spelling errors. Electronically signed by: Ethan Celeste M.D. 04/03/2022 9:15 AM
[2022-04-03] MEDS: DEXTROMETHORPHAN POLYMR COMPLX 30 MG/5 ML UDP PO PRN (10:59)
[2022-04-03] MEDS: BENZONATATE 100 MG CAPSULE PO PRN ×2 (10:59→20:28)
--- NOTE | 2022-04-03 12:44 | Pulmonology Progress Note ---
Date of Service April 03, 2022 Assessment & Plan (1) Hx pulmonary embolism: (2) History of DVT of lower extremity: (3) Bilateral pneumonia: (4) Pneumonia due to COVID-19 virus: (5) Acute respiratory failure with hypoxia: Plan Impression: 77-year-old female admitted 03/20/2022 with COVID pneumonitis and progressive hypoxemic respiratory failure. She is completed a prolonged course of steroids including high-dose steroids and is currently down to 10 mg of Decadron daily. Recommendations: 1. Acute hypoxemic respiratory failure: Continue to work on weaning oxygen as tolerated. We will check BNP and procalcitonin. Empiric diuretics will be continued. Keep SpO2>88%. Continue IS and flutter as tolerated. 2. Abnormal chest x-ray: Unclear how much is related to pneumonitis. Organizing pneumonia is a possibility however the patient is already completed higher doses of steroids and is currently on the ARDS late phase protocol. She is scheduled to receive an additional 3 days of Decadron at 10 mg a day to complete the course. We will reassess at that point time and see whether additional steroids would be required. 3. History of DVT and PE. With an IVC filter in place, full anticoagulation would be recommended unless there is a contraindication. Deferred to primary service. Prognosis guarded. Admission and Anticipated Discharge Date Admission Date: March 20, 2022 Subjective Patient seen and examined. EMR reviewed. Discussed with off going unit tender. Patient is up to chair. She is on rigid high flow oxygen. She is coughing and states she had a little bit of blood-tinged phlegm this morning. She is serge ating a diet. She is working on incentive spirometry and flutter valve. She denies chest pain or palpitations. Review of Systems Review of Systems: Other per hospitalists note. Physical Exam Physical Exam: Constitutional: No acute distress HEENT: EOMI, PERRLA Respiratory system: Decreased air entry bilaterally, no wheeze, rhonchi, positive crackles bilateral lower lobes CVS: S1-S2 positive, no murmurs or gallops Abdomen: Soft, nontender, nondistended, positive bowel sounds x4, obese Extremities: +2 pulses bilaterally radialis/ dorsalis pedis, no cyanosis, no edema Neuro: Awake alert oriented x3 Psych: Normal mood and affect G/U: positive chappell Skin: no rashes, warm and dry Results & Data Results & Data ([facility]) Vital Signs (Past 12 Hours) Vital Signs Temp Pulse Pulse Pulse Resp BP BP 04/03/22 11:55 36.5 C 81 18 145/73 H 04/03/22 11:31 78 20 04/03/22 08:30 04/03/22 08:05 36.5 C 79 19 134/63 04/03/22 05:59 66 04/03/22 07:26 72 20 04/03/22 03:51 69 27 H 04/03/22 03:29 36.4 C L 77 22 136/68 Pulse Ox O2 Del Method O2 Flow Rate FiO2 04/03/22 11:55 92 Nasal Cannula 15 04/03/22 11:31 90 Nasal Cannula 15 04/03/22 08:30 High Flow Nasal Cannula 15 04/03/22 08:05 92 Nasal Cannula 15 04/03/22 05:59 04/03/22 07:26 92 Nasal Cannula 15 04/03/22 03:51 92 45 04/03/22 03:29 94 BiPAP Laboratory Results 03/31/22 05:18 04/02/22 05:37 Diagnostic Findings Chest x-ray today was reviewed. Diffuse parenchymal opacities bilaterally slightly progressed from prior and definitely progressed from admission. Critical Care Results & Data Vital Signs (Past 12 Hours) Vital Signs Temp Pulse Pulse Pulse Resp BP BP 04/03/22 11:55 36.5 C 81 18 145/73 H 04/03/22 11:31 78 20 04/03/22 08:30 04/03/22 08:05 36.5 C 79 19 134/63 04/03/22 05:59 66 04/03/22 07:26 72 20 04/03/22 03:51 69 27 H 04/03/22 03:29 36.4 C L 77 22 136/68 Pulse Ox O2 Del Method O2 Flow Rate FiO2 04/03/22 11:55 92 Nasal Cannula 15 04/03/22 11:31 90 Nasal Cannula 15 04/03/22 08:30 High Flow Nasal Cannula 15 04/03/22 08:05 92 Nasal Cannula 15 04/03/22 05:59 04/03/22 07:26 92 Nasal Cannula 15 04/03/22 03:51 92 45 04/03/22 03:29 94 BiPAP Lab & Micro Results (Past 24 Hours) No Data to Display No Data to Display No Data to Display Diagnostic Findings (Past 24 Hours) Chest X-Ray 04/03/22 08:00 XR chest 1V portable HISTORY: 77 years-old Female Follow-up COVID pneumonia acute shortness of breath COMPARISON: 04/01/2022 TECHNIQUE: AP view of the chest FINDINGS: Cardiac silhouette is enlarged. No pneumothorax. Mixed interstitial and alveolar opacities appear similar to mildly worsened. No large pleural effusion. Mild right hemidiaphragmatic elevation. Degenerative changes of the shoulders and spine. IMPRESSION: Stable to mildly worsened mixed interstitial and alveolar opacities suggestive of multifocal pneumonia. ACT 112: Negative or not required by law. The above report was generated using voice recognition software. It may contain grammatical, syntax or spelling errors. Electronically signed by: Ethan Celeste M.D. 04/03/2022 9:15 AM I & O Totals 24 Hours 04/02/22 04/03/22 04/04/22 06:59 06:59 06:59 Intake Total 1210 / 1210 150 / 150 300 / 300 Output Total 3301 / 3301 3100 / 3100 350 / 350 Balance -2091 / -2091 -2950 / -2950 -50 / -50 Cumulative 03/20/22 14:26 thru 04/03/22 11:55 Intake Total 7527 Output Total 12603 Balance -8637 RT Ventilator Mngmt (Last Documented) Ventilator Ordered Settings Respiratory Rate 18 04/03/22 11:55 Fraction of Inspired Oxygen 45 04/03/22 03:51 Ventilator - PT Measurements Respiratory Rate 18 PG Care Time/CCT Total # of Minutes Spent Total Time Spent with Patient: Total time spent is greater than 50% in coordination of care (as documented) at patient's floor/unit and/or counseling patient: Coding Level of Care Code 58024 Subseq Hosp Care Lvl 3 Diagnoses Hx pulmonary embolism Z86.711 History of DVT of lower extremity Z86.718 Bilateral pneumonia J18.9 Pneumonia due to COVID-19 virus U07.1; J12.82 Acute respiratory failure with hypoxia J96.01
[2022-04-03] MEDS: FUROSEMIDE INJ 20 MG/2 ML VIAL IV SCH (14:24)
--- NOTE | 2022-04-03 14:27 | Hospitalist Progress Note ---
Date of Service April 03, 2022 Assessment & Plan (1) COVID-19: Plan: Acute hypoxic respiratory failure secondary to COVID-19 pneumonia Multifocal pneumonia 77-year-old female with PMH HTN, HLD, PE/DVT s/p IVC filter, NAFLD, anxiety, who presented to the ED for evaluation of cough and shortness of breath. On 03/15, patient tested positive for COVID-19 via home test and was given prednisone and doxycycline by urgent care provider. Patient also admitted to some occasional coughing and choking with liquids and food. While admitted, patient's respiratory status worsened, with increasing oxygen requirements Even while receiving IV Decadron, antibiotics Patient ultimately required high flow oxygen, higher doses of IV Decadron (10 mg IV twice daily) Also has been receiving intermittent doses of IV Lasix 04/03 Repeat chest x-ray: IMPRESSION: Stable to mildly worsened mixed interstitial and alveolar opacities suggestive of multifocal pneumonia. Weaned off high flow oxygen, now on nasal cannula 10 to 15 L Continue Decadron 10 mg IV daily x3 more days Completed course of doxycycline Continue nebs every 6 hours, Mucomyst twice Lasix 20 mg IV daily (2) Bilateral pneumonia: Plan: Possible superimposed bacterial pneumonia Speech eval completed --no overt signs or symptoms of aspiration or dysphagia. Patient educated on aspiration and GERD precautions. SPIRAL RUNNER recommending regular diet with thin liquids. We will get easy to chew diet 04/03 Completed course of Levaquin and doxycycline (3) Hypertension: Plan: BP controlled, continue metoprolol On lisinopril as patient's home benazepril is nonformulary Continue to hold HCTZ, on IV Lasix Hypertension PRN Hydralazine (4) Hx pulmonary embolism: (5) History of DVT of lower extremity: Plan: S/p IVC filter, no longer on anticoagulation BL LE Doppler negative for DVT Continue Lovenox subcutaneous for DVT prophylaxis (6) DVT prophylaxis: Plan: SQ Lovenox Plan plan of care discussed with patient in detail and at length all questions answered she is understanding, agreeable, comfortable with the plan of care Admission and Anticipated Discharge Date Admission Date: March 20, 2022 Subjective Follow-up for acute hypoxic respite failure, COVID-19 pneumonia, etc. Seen resting in bedside chair, comfortable, on 15 L of oxygen via nasal cannula States she feels about the same as yesterday Breathing is okay while on oxygen supplement Has scant yellow sputum Coughing less No chest pain, no leg pain No other symptoms Review of Systems Review of Systems: all noted and negative except for above Physical Exam Physical Exam: General- oriented x 3, not in distress, speaks in sentences with no effort or accessory muscle use Eyes- anicteric Neck- no JVD Lungs-diminished but clear breath sounds on bilateral lung montemayor, no wheezing, no crackles Heart- normal rate, regular rhythm; no murmurs Abdomen- normal bowel sounds, nondistended, soft, nontender Extremities- no pretibial edema, no calf tenderness Neuro- alert, oriented x 3; no gross focal neurologic deficits Skin- warm & dry Results & Data Results & Data ([facility]) Vital Signs (Past 12 Hours) Vital Signs Temp Pulse Pulse Pulse Resp BP BP 04/03/22 11:55 36.5 C 81 18 145/73 H 04/03/22 11:31 78 20 04/03/22 08:30 04/03/22 08:05 36.5 C 79 19 134/63 04/03/22 05:59 66 04/03/22 07:26 72 20 04/03/22 03:51 69 27 H 04/03/22 03:29 36.4 C L 77 22 136/68 Pulse Ox O2 Del Method O2 Flow Rate FiO2 04/03/22 11:55 92 Nasal Cannula 15 04/03/22 11:31 90 Nasal Cannula 15 04/03/22 08:30 High Flow Nasal Cannula 15 04/03/22 08:05 92 Nasal Cannula 15 04/03/22 05:59 04/03/22 07:26 92 Nasal Cannula 15 04/03/22 03:51 92 45 04/03/22 03:29 94 BiPAP all noted and reviewed including below
[2022-04-03] MEDS: ACETAMINOPHEN 325 MG TAB PO PRN (20:30)
[2022-04-03] MEDS: LATANOPROST 0.005% OP SOLN 2.5 ML BTL OP SCH (20:33)
[2022-04-04] MEDS: LORazepam 0.5 MG TAB PO PRN ×2 (01:55→23:10)
[2022-04-04] MEDS: guaiFENesin/CODEINE 100MG/10MG 5ML UDC PO SCH ×3 (05:18→21:02)
[2022-04-04 07:10] LABS: BUN Creatinine Ratio 59.2 (10-20); Creatinine Clr Calc Pharmacy 89.7 ml/min; Est GFR (African American) 108.9 ml/min; Magnesium 2.3 mg/dl (1.7-2.4); Potassium 4.2 mmol/L (3.5-5.1)
[2022-04-04] MEDS: LEVALBUTEROL 1.25MG/0.5ML NEB INH SCH ×4 (07:30→19:45)
[2022-04-04] MEDS: IPRATROPIUM BROMIDE NEB SOLN 0.02% 2.5 ML VIAL INH SCH ×4 (07:30→19:45)
[2022-04-04] MEDS: ACETAMINOPHEN 325 MG TAB PO PRN (08:35)
[2022-04-04] MEDS: PANTOprazole 40 MG in SYRINGE 0 ML IV SCH ×2 (08:36→20:57)
[2022-04-04] MEDS: GABAPENTIN 800 MG TAB PO SCH ×3 (08:36→20:56)
[2022-04-04] MEDS: lisinopril 2.5 MG TAB PO SCH (08:36)
[2022-04-04] MEDS: ATORVASTATIN 20 MG TAB PO SCH (08:36)
[2022-04-04] MEDS: ADVANCED PROBIOTIC 1250 MG CAPSULE PO SCH (08:37)
[2022-04-04] MEDS: FOLIC ACID 1 MG TAB PO SCH (08:37)
[2022-04-04] MEDS: NYSTATIN SUSP 500,000 U/5 ML UDC PO SCH ×4 (08:37→20:55)
[2022-04-04] MEDS: METOPROLOL SUCC 25MG EXT REL TAB PO SCH (08:37)
[2022-04-04] MEDS: DULoxetine HCL 60 MG CAP PO SCH (08:37)
[2022-04-04] MEDS: FUROSEMIDE INJ 20 MG/2 ML VIAL IV SCH (08:37)
[2022-04-04] MEDS: DICLOFENAC SOD 1% GEL 100 GM TUBE EXT SCH ×2 (08:38→20:54)
[2022-04-04] MEDS: ENOXAPARIN INJ 40 MG/0.4 ML SYR SQ SCH (08:39)
[2022-04-04] MEDS: dexAMETHasone 10 MG in SYRINGE 0 ML IV SCH (08:39)
[2022-04-04] MEDS: BENZONATATE 100 MG CAPSULE PO PRN (09:07)
--- NOTE | 2022-04-04 11:35 | Pulmonology Progress Note ---
Date of Service April 04, 2022 Assessment & Plan (1) Hx pulmonary embolism: (2) History of DVT of lower extremity: (3) Bilateral pneumonia: (4) Pneumonia due to COVID-19 virus: (5) Acute respiratory failure with hypoxia: Plan Impression: 77-year-old female admitted 03/20/2022 with COVID pneumonitis and progressive hypoxemic respiratory failure. She is completed a prolonged course of steroids including high-dose steroids and is currently down to 10 mg of Decadron daily. Recommendations: 1. Acute hypoxemic respiratory failure: Continue to work on weaning oxygen as tolerated. We will check BNP and procalcitonin. Empiric diuretics will be continued. Keep SpO2>88%. Continue IS and flutter as tolerated. 2. Abnormal chest x-ray: Unclear how much is related to pneumonitis. Organizing pneumonia is a possibility however the patient is already completed higher doses of steroids and is currently on the ARDS late phase protocol. She is scheduled to receive an additional 2 days of Decadron at 10 mg a day to complete the course. We will reassess at that point time and see whether additional steroids would be required. Follow-up imaging may be necessary 3. History of DVT and PE. With an IVC filter in place, full anticoagulation would be recommended unless there is a contraindication. Deferred to primary service. Appears to be making slow progress. Admission and Anticipated Discharge Date Admission Date: March 20, 2022 Subjective No acute events overnight. Oxygen weaning. Review of Systems Review of Systems: All systems reviewed & are unremarkable except as noted in Subjective Physical Exam Physical Exam: Constitutional: No acute distress HEENT: EOMI, PERRLA Respiratory system: Decreased air entry bilaterally, no wheeze, rhonchi, positi ve crackles bilateral lower lobes CVS: S1-S2 positive, no murmurs or gallops Abdomen: Soft, nontender, nondistended, positive bowel sounds x4, obese Extremities: +2 pulses bilaterally radialis/ dorsalis pedis, no cyanosis, no edema Neuro: Awake alert oriented x3 Psych: Normal mood and affect G/U: positive chappell Skin: no rashes, warm and dry Results & Data Results & Data ([facility]) Vital Signs (Past 12 Hours) Vital Signs Temp Pulse Pulse Pulse Resp BP BP 04/04/22 08:34 89 130/69 04/04/22 07:47 36.5 C 86 22 123/59 L 04/04/22 07:31 68 22 04/04/22 07:00 69 04/04/22 02:50 78 21 04/04/22 02:30 36.8 C 70 22 140/77 04/04/22 00:33 Pulse Ox O2 Del Method O2 Flow Rate FiO2 04/04/22 08:34 04/04/22 07:47 88 L High Flow Nasal Cannula 10 04/04/22 07:31 93 Nasal Cannula 11 04/04/22 07:00 04/04/22 02:50 93 45 04/04/22 02:30 94 BiPAP 04/04/22 00:33 BiPAP Laboratory Results 03/31/22 05:18 04/04/22 06:14 Procalcitonin normal BMP normal Diagnostic Findings No new imaging PG Care Time/CCT Total # of Minutes Spent Total Time Spent with Patient: Total time spent is greater than 50% in coordination of care (as documented) at patient's floor/unit and/or counseling patient: Coding Level of Care Code 36236 Subseq Hosp Care Lvl 2 Diagnoses Hx pulmonary embolism Z86.711 History of DVT of lower extremity Z86.718 Bilateral pneumonia J18.9 Pneumonia due to COVID-19 virus U07.1; J12.82 Acute respiratory failure with hypoxia J96.01
--- NOTE | 2022-04-04 16:49 | Hospitalist Progress Note ---
Date of Service April 04, 2022 Assessment & Plan (1) COVID-19: Plan: Acute hypoxic respiratory failure secondary to COVID-19 pneumonia Multifocal pneumonia 77-year-old female with PMH HTN, HLD, PE/DVT s/p IVC filter, NAFLD, anxiety, who presented to the ED for evaluation of cough and shortness of breath. On 03/15, patient tested positive for COVID-19 via home test and was given prednisone and doxycycline by urgent care provider. Patient also admitted to some occasional coughing and choking with liquids and food. While admitted, patient's respiratory status worsened, with increasing oxygen requirements Even while receiving IV Decadron, antibiotics Patient ultimately required high flow oxygen, higher doses of IV Decadron (10 mg IV twice daily) Also has been receiving intermittent doses of IV Lasix 04/03 Repeat chest x-ray: IMPRESSION: Stable to mildly worsened mixed interstitial and alveolar opacities suggestive of multifocal pneumonia. 04/04 Slow improvement Weaned off high flow oxygen, now on nasal cannula 10 to 15 L Continue Decadron 10 mg IV daily x2 more days Completed course of doxycycline Continue nebs every 6 hours, Mucomyst twice Lasix 20 mg IV daily Appreciate pulmonary service recommendations (2) Bilateral pneumonia: Plan: Possible superimposed bacterial pneumonia Speech eval completed --no overt signs or symptoms of aspiration or dysphagia. Patient educated on aspiration and GERD precautions. PRINCIPAL SCIENTIST recommending regular diet with thin liquids. We will get easy to chew diet 04/04 Completed course of Levaquin and doxycycline (3) Hypertension: Plan: BP controlled, continue metoprolol On lisinopril as patient's home benazepril is nonformulary Continue to hold HCTZ, on IV Lasix Hypertension PRN Hydralazine (4) Hx pulmonary embolism: (5) History of DVT of lower extremity: Plan: Status post provoked DVT/PE about 10 years ago, Status post IVC filter Known history of MTHFR mutation Not on anticoagulation as an outpatient Saw [facility] vascular surgery 1 month ago, removal of IVC filter plan Presently, BL LE Doppler negative for DVT Per Dr. Donaldson, patient high risk for development of clot around IVC filter given age of the filter, COVID status Recommend full anticoagulation with Eliquis 5 mg p.o. twice daily Discussed with patient, no history of hemorrhage Eliquis 5 mg p.o. twice daily started (6) DVT prophylaxis: Plan: Eliquis 5 mg p.o. twice daily started today Plan Disposition Patient will need jail facility placement when medically stable plan of care discussed with patient in detail and at length all questions answered she is understanding, agreeable, comfortable with the plan of care Admission and Anticipated Discharge Date Admission Date: March 20, 2022 Subjective Follow-up for COVID-19 multifocal pneumonia, acute hypoxic respiratory failure, etc. Seen resting in bed, comfortable, not in distress On 10 L of oxygen via nasal cannula States that she is having a good day today Breathing is slightly improving Has intermittent dry cough, but no chest pain No other symptom Review of Systems Review of Systems: all noted and negative except for above Physical Exam Physical Exam: General- oriented x 3, not in distress, speaks in sentences with no effort or accessory muscle use Eyes- anicteric Neck- no JVD Lungs-diminished but clear breath sounds bilaterally, no rales/wheezes Heart- normal rate, regular rhythm; no murmurs Abdomen- normal bowel sounds, nondistended, soft, nontender Extremities- no pretibial edema, no calf tenderness Neuro- alert, oriented x 3; no gross focal neurologic deficits Skin- warm & dry Results & Data Results & Data ([facility]) Vital Signs (Past 12 Hours) Vital Signs Temp Pulse Pulse Pulse Resp BP Pulse Ox 04/04/22 16:05 92 04/04/22 15:00 80 04/04/22 16:00 77 20 91 04/04/22 15:44 36.7 C 78 24 127/71 89 L 04/04/22 11:45 36.7 C 86 21 97/63 L 88 L 04/04/22 08:00 04/04/22 08:34 89 130/69 04/04/22 07:47 36.5 C 86 22 123/59 L 88 L 04/04/22 07:31 68 22 93 04/04/22 07:00 69 O2 Del Method O2 Flow Rate 04/04/22 16:05 04/04/22 15:00 04/04/22 16:00 High Flow Nasal Cannula 10 04/04/22 15:44 High Flow Nasal Cannula 10 04/04/22 11:45 High Flow Nasal Cannula 10 04/04/22 08:00 High Flow Nasal Cannula 15 04/04/22 08:34 04/04/22 07:47 High Flow Nasal Cannula 10 04/04/22 07:31 Nasal Cannula 11 04/04/22 07:00 all noted and reviewed including below
[2022-04-04] MEDS: APIXABAN 5 MG TABLET PO SCH (20:54)
[2022-04-04] MEDS: LATANOPROST 0.005% OP SOLN 2.5 ML BTL OP SCH (20:57)
[2022-04-05] MEDS: guaiFENesin/CODEINE 100MG/10MG 5ML UDC PO SCH ×3 (06:08→21:08)
[2022-04-05] MEDS: LORazepam 0.5 MG TAB PO PRN ×2 (06:08→21:08)
[2022-04-05] MEDS: LEVALBUTEROL 1.25MG/0.5ML NEB INH SCH ×4 (07:07→19:44)
[2022-04-05] MEDS: IPRATROPIUM BROMIDE NEB SOLN 0.02% 2.5 ML VIAL INH SCH ×4 (07:07→19:44)
[2022-04-05 07:45] LABS: BUN Creatinine Ratio 56.1 (10-20); Creatinine Clr Calc Pharmacy 77.1 ml/min; Est GFR (African American) 103.6 ml/min; Est GFR (Non-African American) 89.4 ml/min; Magnesium 2.3 mg/dl (1.7-2.4); Potassium 4.1 mmol/L (3.5-5.1)
[2022-04-05] MEDS: PANTOprazole 40 MG in SYRINGE 0 ML IV SCH (08:57)
[2022-04-05] MEDS: DULoxetine HCL 60 MG CAP PO SCH (08:57)
[2022-04-05] MEDS: NYSTATIN SUSP 500,000 U/5 ML UDC PO SCH ×3 (08:57→16:31)
[2022-04-05] MEDS: METOPROLOL SUCC 25MG EXT REL TAB PO SCH (08:57)
[2022-04-05] MEDS: lisinopril 2.5 MG TAB PO SCH (08:58)
[2022-04-05] MEDS: ADVANCED PROBIOTIC 1250 MG CAPSULE PO SCH (08:58)
[2022-04-05] MEDS: DICLOFENAC SOD 1% GEL 100 GM TUBE EXT SCH ×2 (08:58→21:09)
[2022-04-05] MEDS: GABAPENTIN 800 MG TAB PO SCH ×3 (08:58→21:11)
[2022-04-05] MEDS: ATORVASTATIN 20 MG TAB PO SCH (08:59)
[2022-04-05] MEDS: FOLIC ACID 1 MG TAB PO SCH (08:59)
[2022-04-05] MEDS: APIXABAN 5 MG TABLET PO SCH ×2 (08:59→21:10)
[2022-04-05] MEDS: FUROSEMIDE INJ 20 MG/2 ML VIAL IV SCH (09:00)
--- NOTE | 2022-04-05 12:33 | Pulmonology Progress Note ---
Date of Service April 05, 2022 Assessment & Plan (1) Hx pulmonary embolism: (2) History of DVT of lower extremity: (3) Bilateral pneumonia: (4) Pneumonia due to COVID-19 virus: (5) Acute respiratory failure with hypoxia: Plan Impression: 77-year-old female admitted 03/20/2022 with COVID pneumonitis and progressive hypoxemic respiratory failure. She is completed a prolonged course of steroids. She likely has underlying fibrotic lung disease and continued clinical improvement will likely be on the order of weeks to months. Recommendations: 1. Acute hypoxemic respiratory failure: Continue to work on weaning oxygen as tolerated. Continue incentive spirometry, flutter valve, and diuresis until BUN and creatinine are elevated. Given the patient's high oxygen requirement, consideration for LTAC or SNF might be appropriate. The patient has received optimal benefit from inpatient management at this point in time and if her oxygen requirement can be met at a [facility] facility, rehab center, or LTAC, that would be the next step. 2. Abnormal chest x-ray: Unclear how much is related to pneumonitis. Patient's completed prolonged course of steroids and no indication for additional steroids or antimicrobial agents currently. 3. History of DVT and PE. Discussed extensively with hospitalist yesterday. With an indwelling IVC filter, long-term anticoagulation is recommended in the absence of a contraindication. Will defer to the primary service. The patient reportedly has been seen by vascular surgeon for consideration of removal of the IVC filter in the outpatient setting. Little to add at this point time from a pulmonary perspective. Again I suspect the patient's recovery will be somewhat prolonged. Would recommend a follow-up CT scan and pulmonary function tests in 3 to 4 months depending on clinical course. Pulmonary will sign off at this point time. Feel free to contact us with questions or concerns Admission and Anticipated Discharge Date Admission Date: March 20, 2022 Subjective Patient seen and examined. EMR reviewed. She is sitting up in a chair. She is coughing little bit more. She is not expectorating any phlegm. No fevers chills or night sweats. No chest pain or palpitations. Physical Exam Physical Exam: Constitutional: No acute distress HEENT: EOMI, PERRLA Respiratory system: Diminished breath sounds bilaterally with few crackles. CVS: S1-S2 positive, no murmurs or gallops Abdomen: Soft, nontender, nondistended, positive bowel sounds x4, obese Extremities: +2 pulses bilaterally radialis/ dorsalis pedis, no cyanosis, no edema Neuro: Awake alert oriented x3 Skin: no rashes, warm and dry Results & Data Results & Data ([facility]) Vital Signs (Past 12 Hours) Vital Signs Temp Pulse Pulse Pulse Resp BP BP 04/05/22 10:54 36.5 C 100 H 18 138/78 04/05/22 08:00 04/05/22 06:08 78 04/05/22 10:16 91 H 20 04/05/22 07:53 36.5 C 83 19 126/73 04/05/22 07:07 95 H 18 04/05/22 03:46 71 23 04/05/22 02:36 36.5 C 70 22 132/77 04/05/22 00:49 75 Pulse Ox O2 Del Method O2 Flow Rate FiO2 04/05/22 10:54 90 Nasal Cannula 11 04/05/22 08:00 Nasal Cannula 10 04/05/22 06:08 04/05/22 10:16 94 Nasal Cannula 10 04/05/22 07:53 90 Nasal Cannula 11 04/05/22 07:07 94 Nasal Cannula 10 04/05/22 03:46 95 45 04/05/22 02:36 93 BiPAP 04/05/22 00:49 Laboratory Results 03/31/22 05:18 04/05/22 07:00 Diagnostic Findings No new imaging PG Care Time/CCT Total # of Minutes Spent Total Time Spent with Patient: Total time spent is greater than 50% in coordination of care (as documented) at patient's floor/unit and/or counseling patient: Coding Level of Care Code 20703 Subseq Hosp Care Lvl 2 Diagnoses Hx pulmonary embolism Z86.711 History of DVT of lower extremity Z86.718 Bilateral pneumonia J18.9 Pneumonia due to COVID-19 virus U07.1; J12.82 Acute respiratory failure with hypoxia J96.01
--- NOTE | 2022-04-05 13:13 | Hospitalist Progress Note ---
Date of Service April 05, 2022 Assessment & Plan (1) COVID-19: Plan: Patient is a 77-year-old female with PMH HTN, HLD, PE/DVT s/p IVC filter, NAFLD, anxiety, who presented to the ED for evaluation of cough and shortness of breath. She was tested for COVID-19 infection as an outpatient on 03/15. She was on doxycycline and prednisone which she received from urgent clinic. She presented on 03/20 with worsening shortness of breath. She was placed on high flow nasal cannula along with high-dose of steroids for COVID-19 pneumonia. She was also given Lasix intermittently for possible volume overload. Her oxygen was weaned off from high flow nasal cannula to nasal cannula on 04/04. She has completed a course of doxycycline. She also completed course of prolonged steroids on 04/07. Plan; Continue to try to wean off oxygen to maintain saturation above 92%. Continue on Lasix 20 mg IV daily. Will reassess on daily basis. BNP within normal limits. Status post Decadron on 04/05. Status post course of doxycycline and levaquin -She will need follow-up CT scan and pulmonary function test in 3 to 4 months depending on clinical course as per pulmonology. (2) Bilateral pneumonia: Plan: Possible superimposed bacterial pneumonia Speech eval completed --no overt signs or symptoms of aspiration or dysphagia. Patient educated on aspiration and GERD precautions. MEDICAL RECORD SPECIALIST recommending regular diet with thin liquids. We will get easy to chew diet (3) Hypertension: Plan: BP controlled, continue metoprolol On lisinopril as patient's home benazepril is nonformulary Continue to hold HCTZ, on IV Lasix Hypertension (4) Hx pulmonary embolism: (5) History of DVT of lower extremity: Plan: Status post provoked DVT/PE about 10 years ago, Status post IVC filter Known history of MTHFR mutation Not on anticoagulation as an outpatient Saw [facility] 1 month ago, removal of IVC filter plan Presently, BL LE Doppler negative for DVT Per Dr. Donaldson, patient high risk for development of clot around IVC filter given age of the filter, COVID status Recommend full anticoagulation with Eliquis 5 mg p.o. twice daily Discussed with patient, no history of hemorrhage Eliquis 5 mg p.o. twice daily started (6) DVT prophylaxis: Plan: Eliquis 5 mg p.o. twice daily started on 04/04 Plan Disposition Patient will need detention facility placement when medically stable Admission and Anticipated Discharge Date Admission Date: March 20, 2022 Subjective Patient seen and examined at bedside. She is sitting up at the side of the bed in mild respiratory distress. Her oxygen requirement is at 10 L/min by nasal cannula. Review of Systems Review of Systems: All systems reviewed & are unremarkable except as noted in Subjective Physical Exam Physical Exam: General- oriented x 3, In mild respiratory distress. Eyes- anicteric Neck- no JVD Lungs-diminished but clear breath sounds bilaterally, no rales/wheezes Heart- normal rate, regular rhythm; no murmurs Abdomen- normal bowel sounds, nondistended, soft, nontender Extremities- no pretibial edema, no calf tenderness Neuro- alert, oriented x 3; no gross focal neurologic deficits Skin- warm & dry Results & Data Results & Data ([facility]) Vital Signs (Past 12 Hours) Vital Signs Temp Pulse Pulse Pulse Resp BP BP 04/05/22 10:54 36.5 C 100 H 18 138/78 04/05/22 08:00 04/05/22 06:08 78 04/05/22 10:16 91 H 20 04/05/22 07:53 36.5 C 83 19 126/73 04/05/22 07:07 95 H 18 04/05/22 03:46 71 23 04/05/22 02:36 36.5 C 70 22 132/77 Pulse Ox O2 Del Method O2 Flow Rate FiO2 04/05/22 10:54 90 Nasal Cannula 11 04/05/22 08:00 Nasal Cannula 10 04/05/22 06:08 04/05/22 10:16 94 Nasal Cannula 10 04/05/22 07:53 90 Nasal Cannula 11 04/05/22 07:07 94 Nasal Cannula 10 04/05/22 03:46 95 45 04/05/22 02:36 93 BiPAP Laboratory Results Laboratory Results WBC 10.29 K/ul (4.8-10.8) 03/31/22 05:18 RBC 4.12 M/uL (3.93-5.22) 03/31/22 05:18 Hgb 13.6 g/dl (12.0-16.0) 03/31/22 05:18 Hct 39.5 % (34.1-44.9) 03/31/22 05:18 MCV 95.9 fL (80.0-100.0) 03/31/22 05:18 MCH 33.0 pg (25.0-34.0) 03/31/22 05:18 MCHC 34.4 g/dL (32.0-36.0) 03/31/22 05:18 RDW Std Deviation 45.1 fL (36.4-46.3) 03/31/22 05:18 RDW Coeff of Blayne 12.9 % (11.5-14.5) 03/31/22 05:18 Plt Count 127 K/uL (130-400) L 03/31/22 05:18 MPV 9.6 fL (9.4-12.3) 03/31/22 05:18 Immature Gran % (Auto) 5.0 % 03/31/22 05:18 Neut % (Auto) 88.1 % 03/31/22 05:18 Lymph % (Auto) 4.5 % 03/31/22 05:18 [place] % (Auto) 2.0 % 03/31/22 05:18 Eos % (Auto) 0.0 % 03/31/22 05:18 Baso % (Auto) 0.4 % 03/31/22 05:18 Neut # (Auto) 9.07 K/uL (1.4-6.5) H 03/31/22 05:18 Lymph # (Auto) 0.46 K/uL (1.2-3.4) L 03/31/22 05:18 [place] # (Auto) 0.21 K/uL (0.24-0.82) L 03/31/22 05:18 Eos # (Auto) 0.00 K/uL (0-0.50) 03/31/22 05:18 Baso # (Auto) 0.04 K/uL (0-0.2) 03/31/22 05:18 Immature Gran # (Auto) 0.51 K/uL (0.00-0.02) H 03/31/22 05:18 PT 10.6 Seconds (9.0-12.0) 03/20/22 16:48 INR 1.0 (0.9-1.1) 03/20/22 16:48 APTT 25.6 Seconds (21.0-31.0) 03/20/22 16:48 PTT Ratio 0.9 03/20/22 16:48 ABG pH 7.54 (7.35-7.45) H* 03/27/22 10:52 ABG pCO2 30 mmHg (35-46) L 03/27/22 10:52 ABG pO2 53 mmHg (80-95) L 03/27/22 10:52 ABG HCO3 26 mmol/L (19-24) H 03/27/22 10:52 ABG O2 Saturation 87.7 % (90-95) L 03/27/22 10:52 ABG Base Excess 3.8 mEq/L (-9-1.8) H 03/27/22 10:52 Shayne Test Pos (Pos) 03/27/22 10:52 Oxygen Given 15 L 03/27/22 10:52 Sodium 136 mmol/L (136-145) 04/05/22 07:00 Potassium 4.1 mmol/L (3.5-5.1) 04/05/22 07:00 Chloride 98 mmol/L (98-107) 04/05/22 07:00 Carbon Dioxide 30 mmol/L (21-32) 04/05/22 07:00 Anion Gap 8 (3-11) 04/05/22 07:00 BUN 32 mg/dl (6-23) H 04/05/22 07:00 Creatinine 0.57 mg/dl (0.6-1.2) L 04/05/22 07:00 Est Cr Clr Drug Dosing 77.1 ml/min 04/05/22 07:00 Est GFR ( Amer) 103.6 ml/min 04/05/22 07:00 Est GFR (Non-Af Amer) 89.4 ml/min 04/05/22 07:00 BUN/Creatinine Ratio 56.1 (10-20) H 04/05/22 07:00 Glucose 161 mg/dl (70-99(Fasting)) H 04/05/22 07:00 Calcium 9.0 mg/dl (8.5-10.1) 04/05/22 07:00 Phosphorus 3.0 mg/dl (2.5-4.9) 03/29/22 05:57 Magnesium 2.3 mg/dl (1.7-2.4) 04/05/22 07:00 Total Bilirubin 0.4 mg/dl (0.2-1.0) 03/20/22 16:48 AST 47 U/L (13-39) H 03/20/22 16:48 ALT 70 U/L (7-52) H 03/20/22 16:48 Alkaline Phosphatase 68 U/L (34-104) 03/20/22 16:48 Troponin I High Sens 4.7 pg/ml (0-14) 03/20/22 16:48 C-Reactive Protein 2.98 mg/dl (0-0.5) H 03/31/22 05:18 B-Natriuretic Peptide 25 pg/ml (0-100) 04/03/22 13:50 Total Protein 6.7 gm/dl (6.0-8.3) 03/20/22 16:48 Albumin 4.1 gm/dl (3.4-5.0) 03/20/22 16:48 Globulin 2.6 gm/dl (2.5-4.0) 03/20/22 16:48 Albumin/Globulin Ratio 1.6 (0.9-2) 03/20/22 16:48 Procalcitonin < 0.05 ng/ml (0-0.5) 04/03/22 13:50 Urine Color Yellow 03/25/22 17:50 Urine Appearance Clear (Clear) 03/25/22 17:50 Urine pH 7.5 (4.5-7.5) 03/25/22 17:50 Ur Specific [place] 1.006 (1.000-1.030) 03/25/22 17:50 Urine Protein Negative (Negative) 03/25/22 17:50 Urine Glucose (UA) Negative (Negative) 03/25/22 17:50 Urine Ketones Negative (Negative) 03/25/22 17:50 Urine Blood Negative (Negative) 03/25/22 17:50 Urine Nitrite Negative (Negative) 03/25/22 17:50 Urine Bilirubin Negative (Negative) 03/25/22 17:50 Urine Urobilinogen Negative (Negative) 03/25/22 17:50 Ur Leukocyte Esterase Negative (Negative) 03/25/22 17:50 SARS-CoV-2 (PCR) POSITIVE (Negative) A* 03/20/22 17:05 Hepatitis C Ab (EIA) NON-REACTIVE (NON-REACTIVE) 03/21/22 06:09 Hep C Ab Signal/Cutoff 0.04 (<1.00) 03/21/22 06:09 Influenza Type A (PCR) Negative (Neg) 03/20/22 17:05 Influenza Type B (PCR) Negative (Neg) 03/20/22 17:05 RSV (RT-PCR) Negative (Neg) 03/20/22 17:[address] 03/21/22 13:30 CT SCAN OF THE CHEST WITHOUT IV CONTRAST CLINICAL HISTORY: Pneumonia. Covid. COMPARISON STUDY: Chest x-ray dated 03/20/2022. Chest CT dated 12/09/2014. TECHNIQUE: CT scan of the thorax was performed from the thoracic inlet to the upper abdomen. Images are reviewed in the axial, sagittal, and coronal planes. IV contrast was not administered for this examination as per the referring clinician. A dose lowering technique was utilized adhering to the principles of ALARA. CT DOSE: 630.72 mGy.cm FINDINGS: Thyroid: Imaged portions of the thyroid gland are normal in size and attenuation. Thoracic aorta: There is atherosclerotic calcification of the thoracic aorta, which is normal in caliber and demonstrates variant 3-vessel arch anatomy. There is a bovine arch, and the left vertebral artery arises directly from the thoracic aorta. Heart: The heart is normal in size and without pericardial effusion. There are calcifications of the coronary arteries and mitral annulus. Lungs and pleural spaces: Evaluation of the lung parenchyma is significantly degraded by motion artifact. Multifocal groundglass consolidation is seen thr oughout both lungs with a subpleural and lower lobe predominance. There is no pleural effusion. The trachea and central airways are clear. Mediastinum: There is no mediastinal lymphadenopathy. Glory: Not well assessed without IV contrast. Axillae: There is no axillary lymphadenopathy. Upper abdomen: A small hiatal hernia is noted. There is hepatic steatosis. The gallbladder surgically absent. Skeletal structures: The skeletal structures are osteopenic. Spondylotic change is seen throughout the thoracic spine and arthritic change is noted in the shoulders. No lytic or blastic bony lesions are seen. IMPRESSION: 1. Multifocal groundglass consolidation is seen throughout both lungs as detailed above. This is consistent with reported history of a viral pneumonia. Radiographic follow-up resolution is recommended. 2. No pleural effusion is identified. 3. Hepatic steatosis. 4. Additional findings as above. ACT 112: Negative or not required by law. Electronically signed by: Ariel Bolaños M.D. 03/21/2022 4:14 PM Venous Doppler Study 03/21/22 13:59 BILATERAL LOWER EXTREMITY VENOUS DOPPLER HISTORY: Acute pain of the right lower extremity leg pain, r/o DVT COMPARISON STUDY: 12/09/2014. FINDINGS: There is normal compressibility, flow, and augmentation within the bilateral lower extremity deep venous systems. Mild stranding within the left popliteal vein may represent a chronic nonocclusive thrombus, unchanged from 2015. IMPRESSION: No acute DVT within the right or left lower extremity. ACT 112: Negative or not required by law. Electronically signed by: Ethan Celeste M.D. 03/21/2022 9:06 PM Chest X-Ray 04/03/22 08:00 XR chest 1V portable HISTORY: 77 years-old Female Follow-up COVID pneumonia acute shortness of breath COMPARISON: 04/01/2022 TECHNIQUE: AP view of the chest FINDINGS: Cardiac silhouette is enlarged. No pneumothorax. Mixed interstitial and alveolar opacities appear similar to mildly worsened. No large pleural effusion. Mild right hemidiaphragmatic elevation. Degenerative changes of the shoulders and spine. IMPRESSION: Stable to mildly worsened mixed interstitial and alveolar opacities suggestive of multifocal pneumonia. ACT 112: Negative or not required by law. The above report was generated using voice recognition software. It may contain grammatical, syntax or spelling errors. Electronically signed by: Ethan Celeste M.D. 04/03/2022 9:15 AM
[2022-04-05] MEDS: BENZONATATE 100 MG CAPSULE PO PRN ×2 (13:15→21:08)
[2022-04-05] MEDS: ACETAMINOPHEN 325 MG TAB PO PRN ×2 (13:35→21:08)
[2022-04-05] MEDS ORDERED: LEVALBUTEROL HCL 1.25 MG/3 ML NEB ONE (14:45)
[2022-04-05] MEDS: LATANOPROST 0.005% OP SOLN 2.5 ML BTL OP SCH (21:11)
[2022-04-06] MEDS: guaiFENesin/CODEINE 100MG/10MG 5ML UDC PO SCH ×3 (05:15→20:15)
[2022-04-06] MEDS: BENZONATATE 100 MG CAPSULE PO PRN ×3 (05:15→22:52)
[2022-04-06 07:25] LABS: Hematocrit (blood only) 44.5 % (34.1-44.9); Mean Corpuscular Hemoglobin 32.6 pg (25.0-34.0); Mean Corpuscular Hgb Conc 33.7 g/dL (32.0-36.0); Mean Corpuscular Volume 96.7 fL (80.0-100.0); Mean Platelet Volume 9.4 fL (9.4-12.3); Platelet Count 215 K/uL (130-400); RDW Coefficient of Variation 13.3 % (11.5-14.5); RDW Standard Deviation 47.6 fL (36.4-46.3); White Blood Count 8.83 K/ul (4.8-10.8)
[2022-04-06] MEDS: IPRATROPIUM BROMIDE NEB SOLN 0.02% 2.5 ML VIAL INH SCH ×4 (07:33→19:16)
[2022-04-06] MEDS: LEVALBUTEROL 1.25MG/0.5ML NEB INH SCH ×4 (07:33→19:15)
[2022-04-06 07:53] LABS: BUN Creatinine Ratio 62.3 (10-20); Creatinine Clr Calc Pharmacy 82.5 ml/min; Est GFR (African American) 106.1 ml/min; Est GFR (Non-African American) 91.6 ml/min; Potassium 3.9 mmol/L (3.5-5.1)
[2022-04-06] MEDS: DICLOFENAC SOD 1% GEL 100 GM TUBE EXT SCH ×2 (07:58→20:13)
[2022-04-06] MEDS: GABAPENTIN 800 MG TAB PO SCH ×3 (07:58→20:14)
[2022-04-06 07:59] LABS: Basophils # (auto) 0.06 K/uL (0-0.2); Basophils % (auto) 0.7 %; Eosinophils # (auto) 0.44 K/uL (0-0.50); Immature Granulocytes # (auto) 0.62 K/uL (0.00-0.02); Lymphocytes # (auto) 0.78 K/uL (1.2-3.4); Lymphocytes % (auto) 8.8 %; Monocytes # (auto) 0.65 K/uL (0.24-0.82); Monocytes % (auto) 7.4 %; Neutrophils # (auto) 6.28 K/uL (1.4-6.5); Neutrophils % (auto) 71.1 %
[2022-04-06] MEDS: DULoxetine HCL 60 MG CAP PO SCH (07:59)
[2022-04-06] MEDS: ADVANCED PROBIOTIC 1250 MG CAPSULE PO SCH (07:59)
[2022-04-06] MEDS: APIXABAN 5 MG TABLET PO SCH ×2 (07:59→20:13)
[2022-04-06] MEDS: FOLIC ACID 1 MG TAB PO SCH (07:59)
[2022-04-06] MEDS: METOPROLOL SUCC 25MG EXT REL TAB PO SCH (07:59)
[2022-04-06] MEDS: PANTOprazole 40 MG TAB PO SCH (07:59)
[2022-04-06] MEDS: ATORVASTATIN 20 MG TAB PO SCH (08:00)
[2022-04-06] MEDS: lisinopril 2.5 MG TAB PO SCH (08:00)
[2022-04-06] MEDS: ACETAMINOPHEN 325 MG TAB PO PRN ×2 (08:44→20:29)
[2022-04-06] MEDS: CLOTRIMAZOLE 10 MG TROCHE BUCCAL SCH ×4 (10:09→22:52)
--- NOTE | 2022-04-06 10:17 | XRay Report ---
XR chest 1V portable HISTORY: Cough. follow up on pulmonary infiltrates COMPARISON: Chest 04/03/2022. FINDINGS: No pneumothorax. No pleural effusions. There are low lung volumes. Multifocal bilateral air space opacities persist. This is most pronounced within the left lower lobe. The heart remains normal in size. No evidence for pulmonary edema. Lumbar spinal fusion hardware is partially visualized. IMPRESSION: No significant change in the multifocal bilateral airspace opacities suggestive of a viral pneumonia. ACT 112: Negative or not required by law. Electronically signed by: Mahad Cuellar M.D. 04/06/2022 10:16 AM
--- NOTE | 2022-04-06 11:25 | Hospitalist Progress Note ---
Date of Service April 06, 2022 Assessment & Plan (1) COVID-19: Plan: Patient is a 77-year-old female with PMH HTN, HLD, PE/DVT s/p IVC filter, NAFLD, anxiety, who presented to the ED for evaluation of cough and shortness of breath. She was tested for COVID-19 infection as an outpatient on 03/15. She was on doxycycline and prednisone which she received from urgent clinic. She presented on 03/20 with worsening shortness of breath. She was placed on high flow nasal cannula along with high-dose of steroids for COVID-19 pneumonia. She was also given Lasix intermittently for possible volume overload. Her oxygen was weaned off from high flow nasal cannula to nasal cannula on 04/04. She has completed a course of doxycycline. She also completed course of prolonged steroids on 04/05. Plan; Continue to try to wean off oxygen to maintain saturation above 92%. We will hold off on additional Lasix today. Urea is uptrending. Will remove Cabezas today and do bladder scan. Status post Decadron on 04/05. Status post course of doxycycline and levaquin - She will need follow-up CT scan and pulmonary function test in 3 to 4 months depending on clinical course as per pulmonology. (2) Bilateral pneumonia: Plan: Possible superimposed bacterial pneumonia Speech eval completed --no overt signs or symptoms of aspiration or dysphagia. Patient educated on aspiration and GERD precautions. PHYSICS TUTOR recommending regular diet with thin liquids. We will get easy to chew diet (3) Hypertension: Plan: BP controlled, continue metoprolol On lisinopril as patient's home benazepril is nonformulary Continue to hold HCTZ (4) Hx pulmonary embolism: (5) History of DVT of lower extremity: Plan: Status post provoked DVT/PE about 10 years ago, Status post IVC filter Known history of MTHFR mutation Not on anticoagulation as an outpatient [facility] month ago, removal of IVC filter plan Presently, BL LE Doppler negative for DVT Per Dr. Donaldson, patient high risk for development of clot around IVC filter given age of the filter, COVID status Recommend full anticoagulation with Eliquis 5 mg p.o. twice daily Discussed with patient, no history of hemorrhage Eliquis 5 mg p.o. twice daily started on 04/04 (6) DVT prophylaxis: Plan: Eliquis 5 mg p.o. twice daily started on 04/04 Plan Disposition Patient will need prison facility placement when medically stable. Kate Campbell can take up to 10 L of nasal cannula. We will continue to assess her on daily basis. PT OT note is appreciated. Admission and Anticipated Discharge Date Admission Date: March 20, 2022 Subjective Patient seen and examined at bedside. She is comfortably lying on the bed; in mild respiratory distress. She continues to be on nasal cannula at 10 L/min. Review of Systems Review of Systems: All systems reviewed & are unremarkable except as noted in Subjective Physical Exam Physical Exam: General- oriented x 3, In mild respiratory distress. Eyes- anicteric Neck- no JVD Lungs-diminished but clear breath sounds bilaterally, no rales/wheezes Heart- normal rate, regular rhythm; no murmurs Abdomen- normal bowel sounds, nondistended, soft, nontender. Cabezas in place draining clear urine. Extremities- no pretibial edema, no calf tenderness Neuro- alert, oriented x 3; no gross focal neurologic deficits Skin- warm & dry Results & Data Results & Data ([facility]) Vital Signs (Past 12 Hours) Vital Signs Temp Pulse Pulse Resp BP BP Pulse Ox 04/06/22 08:00 04/06/22 06:17 70 04/06/22 08:03 36.8 C 78 20 130/75 94 04/06/22 07:35 77 24 94 04/06/22 07:33 75 22 96 04/06/22 05:04 36.7 C 68 24 126/72 96 04/06/22 03:04 78 26 H 94 04/05/22 23:29 73 28 H 93 O2 Del Method O2 Flow Rate FiO2 04/06/22 08:00 Nasal Cannula 8 04/06/22 06:17 04/06/22 08:03 Nasal Cannula 10 04/06/22 07:35 45 04/06/22 07:33 BiPAP 45 04/06/22 05:04 BiPAP 04/06/22 03:04 45 04/05/22 23:29 45 Laboratory Results Laboratory Results WBC 8.83 K/ul (4.8-10.8) 04/06/22 06:08 RBC 4.60 M/uL (3.93-5.22) 04/06/22 06:08 Hgb 15.0 g/dl (12.0-16.0) 04/06/22 06:08 Hct 44.5 % (34.1-44.9) 04/06/22 06:08 MCV 96.7 fL (80.0-100.0) 04/06/22 06:08 MCH 32.6 pg (25.0-34.0) 04/06/22 06:08 MCHC 33.7 g/dL (32.0-36.0) 04/06/22 06:08 RDW Std Deviation 47.6 fL (36.4-46.3) H 04/06/22 06:08 RDW Coeff of [place]ay[place] 13.3 % (11.5-14.5) 04/06/22 06:08 Plt Count 215 K/uL (130-400) 04/06/22 06:08 MPV 9.4 fL (9.4-12.3) 04/06/22 06:08 Immature Gran % (Auto) 7.0 % 04/06/22 06:08 Neut % (Auto) 71.1 % 04/06/22 06:08 Lymph % (Auto) 8.8 % 04/06/22 06:08 [place] % (Auto) 7.4 % 04/06/22 06:08 Eos % (Auto) 5.0 % 04/06/22 06:08 Baso % (Auto) 0.7 % 04/06/22 06:08 Neut # (Auto) 6.28 K/uL (1.4-6.5) 04/06/22 06:08 Lymph # (Auto) 0.78 K/uL (1.2-3.4) L 04/06/22 06:08 [place] # (Auto) 0.65 K/uL (0.24-0.82) 04/06/22 06:08 Eos # (Auto) 0.44 K/uL (0-0.50) 04/06/22 06:08 Baso # (Auto) 0.06 K/uL (0-0.2) 04/06/22 06:08 Immature Gran # (Auto) 0.62 K/uL (0.00-0.02) H 04/06/22 06:08 PT 10.6 Seconds (9.0-12.0) 03/20/22 16:48 INR 1.0 (0.9-1.1) 03/20/22 16:48 APTT 25.6 Seconds (21.0-31.0) 03/20/22 16:48 PTT Ratio 0.9 03/20/22 16:48 ABG pH 7.54 (7.35-7.45) H* 03/27/22 10:52 ABG pCO2 30 mmHg (35-46) L 03/27/22 10:52 ABG pO2 53 mmHg (80-95) L 03/27/22 10:52 ABG HCO3 26 mmol/L (19-24) H 03/27/22 10:52 ABG O2 Saturation 87.7 % (90-95) L 03/27/22 10:52 ABG Base Excess 3.8 mEq/L (-9-1.8) H 03/27/22 10:52 Shayne Test Pos (Pos) 03/27/22 10:52 Oxygen Given 15 L 03/27/22 10:52 Sodium 136 mmol/L (136-145) 04/06/22 06:08 Potassium 3.9 mmol/L (3.5-5.1) 04/06/22 06:08 Chloride 97 mmol/L (98-107) L 04/06/22 06:08 Carbon Dioxide 32 mmol/L (21-32) 04/06/22 06:08 Anion Gap 7 (3-11) 04/06/22 06:08 BUN 33 mg/dl (6-23) H 04/06/22 06:08 Creatinine 0.53 mg/dl (0.6-1.2) L 04/06/22 06:08 Est Cr Clr Drug Dosing 82.5 ml/min 04/06/22 06:08 Est GFR ( Amer) 106.1 ml/min 04/06/22 06:08 Est GFR (Non-Af Amer) 91.6 ml/min 04/06/22 06:08 BUN/Creatinine Ratio 62.3 (10-20) H 04/06/22 06:08 Glucose 118 mg/dl (70-99(Fasting)) H 04/06/22 06:08 Calcium 9.0 mg/dl (8.5-10.1) 04/06/22 06:08 Phosphorus 3.0 mg/dl (2.5-4.9) 03/29/22 05:57 Magnesium 2.3 mg/dl (1.7-2.4) 04/05/22 07:00 Total Bilirubin 0.4 mg/dl (0.2-1.0) 03/20/22 16:48 AST 47 U/L (13-39) H 03/20/22 16:48 ALT 70 U/L (7-52) H 03/20/22 16:48 Alkaline Phosphatase 68 U/L (34-104) 03/20/22 16:48 Troponin I High Sens 4.7 pg/ml (0-14) 03/20/22 16:48 C-Reactive Protein 2.98 mg/dl (0-0.5) H 03/31/22 05:18 B-Natriuretic Peptide 25 pg/ml (0-100) 04/03/22 13:50 Total Protein 6.7 gm/dl (6.0-8.3) 03/20/22 16:48 Albumin 4.1 gm/dl (3.4-5.0) 03/20/22 16:48 Globulin 2.6 gm/dl (2.5-4.0) 03/20/22 16:48 Albumin/Globulin Ratio 1.6 (0.9-2) 03/20/22 16:48 Procalcitonin < 0.05 ng/ml (0-0.5) 04/03/22 13:50 Urine Color Yellow 03/25/22 17:50 Urine Appearance Clear (Clear) 03/25/22 17:50 Urine pH 7.5 (4.5-7.5) 03/25/22 17:50 Ur Specific [place] 1.006 (1.000-1.030) 03/25/22 17:50 Urine Protein Negative (Negative) 03/25/22 17:50 Urine Glucose (UA) Negative (Negative) 03/25/22 17:50 Urine Ketones Negative (Negative) 03/25/22 17:50 Urine Blood Negative (Negative) 03/25/22 17:50 Urine Nitrite Negative (Negative) 03/25/22 17:50 Urine Bilirubin Negative (Negative) 03/25/22 17:50 Urine Urobilinogen Negative (Negative) 03/25/22 17:50 Ur Leukocyte Esterase Negative (Negative) 03/25/22 17:50 SARS-CoV-2 (PCR) POSITIVE (Negative) A* 03/20/22 17:05 Hepatitis C Ab (EIA) NON-REACTIVE (NON-REACTIVE) 03/21/22 06:09 Hep C Ab Signal/Cutoff 0.04 (<1.00) 03/21/22 06:09 Influenza Type A (PCR) Negative (Neg) 03/20/22 17:05 Influenza Type B (PCR) Negative (Neg) 03/20/22 17:05 RSV (RT-PCR) Negative (Neg) 03/20/22 17:[address] 03/21/22 13:30 CT SCAN OF THE CHEST WITHOUT IV CONTRAST CLINICAL HISTORY: Pneumonia. Covid. COMPARISON STUDY: Chest x-ray dated 03/20/2022. Chest CT dated 12/09/2014. TECHNIQUE: CT scan of the thorax was performed from the thoracic inlet to the upper abdomen. Images are reviewed in the axial, sagittal, and coronal planes. IV contrast was not administered for this examination as per the referring clinician. A dose lowering technique was utilized adhering to the principles of ALARA. CT DOSE: 630.72 mGy.cm FINDINGS: Thyroid: Imaged portions of the thyroid gland are normal in size and attenuation. Thoracic aorta: There is atherosclerotic calcification of the thoracic aorta, which is normal in caliber and demonstrates variant 3-vessel arch anatomy. There is a bovine arch, and the left vertebral artery arises directly from the thoracic aorta. Heart: The heart is normal in size and without pericardial effusion. There are calcifications of the coronary arteries and mitral annulus. Lungs and pleural spaces: Evaluation of the lung parenchyma is significantly degraded by motion artifact. Multifocal groundglass consolidation is seen throughout both lungs with a subpleural and lower lobe predominance. There is no pleural effusion. The trachea and central airways are clear. Mediastinum: There is no mediastinal lymphadenopathy. Glory: Not well assessed without IV contrast. Axillae: There is no axillary lymphadenopathy. Upper abdomen: A small hiatal hernia is noted. There is hepatic steatosis. The gallbladder surgically absent. Skeletal structures: The skeletal structures are osteopenic. Spondylotic change is seen throughout the thoracic spine and arthritic change is noted in the shoulders. No lytic or blastic bony lesions are seen. IMPRESSION: 1. Multifocal groundglass consolidation is seen throughout both lungs as detailed above. This is consistent with reported history of a viral pneumonia. Radiographic follow-up resolution is recommended. 2. No pleural effusion is identified. 3. Hepatic steatosis. 4. Additional findings as above. ACT 112: Negative or not required by law. Electronically signed by: Ariel Bolaños M.D. 03/21/2022 4:14 PM Venous Doppler Study 03/21/22 13:59 BILATERAL LOWER EXTREMITY VENOUS DOPPLER HISTORY: Acute pain of the right lower extremity leg pain, r/o DVT COMPARISON STUDY: 12/09/2014. FINDINGS: There is normal compressibility, flow, and augmentation within the bilateral lower extremity deep venous systems. Mild stranding within the left popliteal vein may represent a chronic nonocclusive thrombus, unchanged from 2015. IMPRESSION: No acute DVT within the right or left lower extremity. ACT 112: Negative or not required by law. Electronically signed by: Ethan Celeste M.D. 03/21/2022 9:06 PM Chest X-Ray 04/06/22 07:26 XR chest 1V portable HISTORY: Cough. follow up on pulmonary infiltrates COMPARISON: Chest 04/03/2022. FINDINGS: No pneumothorax. No pleural effusions. There are low lung volumes. Multifocal bilateral airspace opacities persist. This is most pronounced within the left lower lobe. The heart remains normal in size. No evidence for pulmonary edema. Lumbar spinal fusion hardware is partially visualized. IMPRESSION: No significant change in the multifocal bilateral airspace opacities suggestive of a viral pneumonia. ACT 112: Negative or not required by law. Electronically signed by: Mahad Cuellar M.D. 04/06/2022 10:16 AM
[2022-04-06] MEDS ORDERED: LEVALBUTEROL HCL 1.25 MG/3 ML NEB ONE (14:58)
[2022-04-06] MEDS: LATANOPROST 0.005% OP SOLN 2.5 ML BTL OP SCH (20:15)
[2022-04-07] MEDS: guaiFENesin/CODEINE 100MG/10MG 5ML UDC PO SCH (05:37)
[2022-04-07] MEDS: COUGH DROP (SUGAR FREE) LOZ 24 LOZ/1 BOX BUCCAL PRN (05:37)
[2022-04-07] MEDS ORDERED: Nursing to Pharmacy Communication SCH (05:45)
[2022-04-07] MEDS: CLOTRIMAZOLE 10 MG TROCHE BUCCAL SCH ×5 (06:17→23:03)
[2022-04-07 06:34] LABS: Hematocrit (blood only) 42.2 % (34.1-44.9); Hemoglobin 14.4 g/dl (12.0-16.0); Mean Corpuscular Hemoglobin 33.2 pg (25.0-34.0); Mean Corpuscular Hgb Conc 34.1 g/dL (32.0-36.0); Mean Corpuscular Volume 97.2 fL (80.0-100.0); Mean Platelet Volume 9.4 fL (9.4-12.3); Platelet Count 204 K/uL (130-400); RDW Coefficient of Variation 13.2 % (11.5-14.5); RDW Standard Deviation 47.5 fL (36.4-46.3); Red Blood Count 4.34 M/uL (3.93-5.22); White Blood Count 7.89 K/ul (4.8-10.8)
[2022-04-07 06:59] LABS: Basophils # (auto) 0.04 K/uL (0-0.2); Basophils % (auto) 0.5 %; Eosinophils # (auto) 0.35 K/uL (0-0.50); Eosinophils % (auto) 4.4 %; Immature Granulocytes # (auto) 0.41 K/uL (0.00-0.02); Immature Granulocytes % (auto) 5.2 %; Lymphocytes % (auto) 8.9 %; Monocytes # (auto) 0.63 K/uL (0.24-0.82); Neutrophils # (auto) 5.76 K/uL (1.4-6.5)
[2022-04-07 07:00] LABS: BUN Creatinine Ratio 64.4 (10-20); Calcium 8.7 mg/dl (8.5-10.1); Creatinine Clr Calc Pharmacy 98.1 ml/min; Est GFR (Non-African American) 96.7 ml/min; Potassium 4.1 mmol/L (3.5-5.1)
[2022-04-07] MEDS: LEVALBUTEROL 1.25MG/0.5ML NEB INH SCH ×4 (07:20→19:48)
[2022-04-07] MEDS: IPRATROPIUM BROMIDE NEB SOLN 0.02% 2.5 ML VIAL INH SCH ×4 (07:20→19:48)
[2022-04-07] MEDS: ADVANCED PROBIOTIC 1250 MG CAPSULE PO SCH (08:07)
[2022-04-07] MEDS: METOPROLOL SUCC 25MG EXT REL TAB PO SCH (08:07)
[2022-04-07] MEDS: PANTOprazole 40 MG TAB PO SCH (08:08)
[2022-04-07] MEDS: FOLIC ACID 1 MG TAB PO SCH (08:08)
[2022-04-07] MEDS: DULoxetine HCL 60 MG CAP PO SCH (08:08)
[2022-04-07] MEDS: GABAPENTIN 800 MG TAB PO SCH ×3 (08:09→19:28)
[2022-04-07] MEDS: ATORVASTATIN 20 MG TAB PO SCH (08:10)
[2022-04-07] MEDS: APIXABAN 5 MG TABLET PO SCH ×2 (08:10→19:27)
[2022-04-07] MEDS: DICLOFENAC SOD 1% GEL 100 GM TUBE EXT SCH ×2 (08:10→19:27)
[2022-04-07] MEDS: lisinopril 2.5 MG TAB PO SCH (08:11)
[2022-04-07] MEDS ORDERED: FLUCONAZOLE 100 MG TAB PO ONE (08:52)
--- NOTE | 2022-04-07 11:01 | Hospitalist Progress Note ---
Date of Service April 07, 2022 Assessment & Plan (1) COVID-19: Plan: Patient is a 77-year-old female with PMH HTN, HLD, PE/DVT s/p IVC filter, NAFLD, anxiety, who presented to the ED for evaluation of cough and shortness of breath. She was tested for COVID-19 infection as an outpatient on 03/15. She was on doxycycline and prednisone which she received from urgent clinic. She presented on 03/20 with worsening shortness of breath. She was placed on high flow nasal cannula along with high-dose of steroids for COVID-19 pneumonia. She was also given Lasix intermittently for possible volume overload. Her oxygen was weaned off from high flow nasal cannula to nasal cannula on 04/04. She has completed a course of doxycycline and levaquin. She also completed course of prolonged steroids on 04/05. Plan; Continue to try to wean off oxygen to maintain saturation above 92%. We will hold off on additional Lasix today. Urea is uptrending. Will remove Cabezas today and do bladder scan. Status post Decadron on 04/05. Status post course of doxycycline and levaquin - She will need follow-up CT scan and pulmonary function test in 3 to 4 months depending on clinical course as per pulmonology. - She will be off isolation starting 04/08. (2) Bilateral pneumonia: Plan: Possible superimposed bacterial pneumonia Speech eval completed --no overt signs or symptoms of aspiration or dysphagia. Patient educated on aspiration and GERD precautions. [employer] recommending regular diet with thin liquids. We will get easy to chew diet (3) Oral candidiasis: Plan: Was on prolonged course of steroids Had trial of nystatin and clotrimazole. Started on fluconazole 200 mg loading dose followed by 100 mg once a day. QTC reviewed; 445. (4) Hypertension: Plan: BP controlled, continue metoprolol On lisinopril as patient's home benazepril is nonformulary Continue to hold HCTZ (5) Hx pulmonary embolism: (6) History of DVT of lower extremity: Plan: Status post provoked DVT/PE about 10 years ago, Status post IVC filter Known history of MTHFR mutation Not on anticoagulation as an outpatient Saw [facility] [address] vascular surgery 1 month ago, removal of IVC filter plan Presently, BL LE Doppler negative for DVT Per Dr. Donaldson, patient high risk for development of clot around IVC filter given age of the filter, COVID status Recommend full anticoagulation with Eliquis 5 mg p.o. twice daily Discussed with patient, no history of hemorrhage Eliquis 5 mg p.o. twice daily started on 04/04 (7) DVT prophylaxis: Plan: Eliquis 5 mg p.o. twice daily started on 04/04 Plan Disposition Patient will need alf facility placement when medically stable. Kate Campbell can take up to 10 L of nasal cannula. We will continue to assess her on daily basis to make sure she is stable on less than 10 L of oxygen before considering discharge. Admission and Anticipated Discharge Date Admission Date: March 20, 2022 Subjective Since seen and examined at bedside. She is sitting up on the chair; not in any distress. She complains of severe sore throat; had trial of nystatin and clotrimazole. She is saturating well at 6 L of nasal cannula but tends to drop down to low 80s on coughing and speaking. Review of Systems Review of Systems: All systems reviewed & are unremarkable except as noted in Subjective Physical Exam Physical Exam: General- oriented x 3, no in any distress Eyes- anicteric Neck- no JVD Lungs-diminished but clear breath sounds bilaterally, no rales/wheezes Heart- normal rate, regular rhythm; no murmurs Abdomen- normal bowel sounds, nondistended, soft, nontender. Extremities- no pretibial edema, no calf tenderness Neuro- alert, oriented x 3; no gross focal neurologic deficits Skin- warm & dry Results & Data Results & Data ([facility]) Vital Signs (Past 12 Hours) Vital Signs Temp Pulse Pulse Pulse Resp BP Pulse Ox 04/07/22 07:59 36.8 C 77 26 H 121/70 90 04/07/22 07:21 70 18 96 04/07/22 03:34 70 22 93 04/07/22 02:14 36.5 C 73 22 153/79 H 93 04/07/22 01:00 73 22 94 O2 Del Method O2 Flow Rate FiO2 04/07/22 07:59 Nasal Cannula 6 04/07/22 07:21 Nasal Cannula 8 04/07/22 03:34 50 04/07/22 02:14 BiPAP 04/07/22 01:00 50 Laboratory Results Laboratory Results WBC 7.89 K/ul (4.8-10.8) 04/07/22 06:02 RBC 4.34 M/uL (3.93-5.22) 04/07/22 06:02 Hgb 14.4 g/dl (12.0-16.0) 04/07/22 06:02 Hct 42.2 % (34.1-44.9) 04/07/22 06:02 MCV 97.2 fL (80.0-100.0) 04/07/22 06:02 MCH 33.2 pg (25.0-34.0) 04/07/22 06:02 MCHC 34.1 g/dL (32.0-36.0) 04/07/22 06:02 RDW Std Deviation 47.5 fL (36.4-46.3) H 04/07/22 06:02 RDW Coeff of Blayne 13.2 % (11.5-14.5) 04/07/22 06:02 Plt Count 204 K/uL (130-400) 04/07/22 06:02 MPV 9.4 fL (9.4-12.3) 04/07/22 06:02 Immature Gran % (Auto) 5.2 % 04/07/22 06:02 Neut % (Auto) 73.0 % 04/07/22 06:02 Lymph % (Auto) 8.9 % 04/07/22 06:02 [place] % (Auto) 8.0 % 04/07/22 06:02 Eos % (Auto) 4.4 % 04/07/22 06:02 Baso % (Auto) 0.5 % 04/07/22 06:02 Neut # (Auto) 5.76 K/uL (1.4-6.5) 04/07/22 06:02 Lymph # (Auto) 0.70 K/uL (1.2-3.4) L 04/07/22 06:02 [place] # (Auto) 0.63 K/uL (0.24-0.82) 04/07/22 06:02 Eos # (Auto) 0.35 K/uL (0-0.50) 04/07/22 06:02 Baso # (Auto) 0.04 K/uL (0-0.2) 04/07/22 06:02 Immature Gran # (Auto) 0.41 K/uL (0.00-0.02) H 04/07/22 06:02 PT 10.6 Seconds (9.0-12.0) 03/20/22 16:48 INR 1.0 (0.9-1.1) 03/20/22 16:48 APTT 25.6 Seconds (21.0-31.0) 03/20/22 16:48 PTT Ratio 0.9 03/20/22 16:48 ABG pH 7.54 (7.35-7.45) H* 03/27/22 10:52 ABG pCO2 30 mmHg (35-46) L 03/27/22 10:52 ABG pO2 53 mmHg (80-95) L 03/27/22 10:52 ABG HCO3 26 mmol/L (19-24) H 03/27/22 10:52 ABG O2 Saturation 87.7 % (90-95) L 03/27/22 10:52 ABG Base Excess 3.8 mEq/L (-9-1.8) H 03/27/22 10:52 Shayne Test Pos (Pos) 03/27/22 10:52 Oxygen Given 15 L 03/27/22 10:52 Sodium 137 mmol/L (136-145) 04/07/22 06:02 Potassium 4.1 mmol/L (3.5-5.1) 04/07/22 06:02 Chloride 100 mmol/L (98-107) 04/07/22 06:02 Carbon Dioxide 33 mmol/L (21-32) H 04/07/22 06:02 Anion Gap 4 (3-11) 04/07/22 06:02 BUN 29 mg/dl (6-23) H 04/07/22 06:02 Creatinine 0.45 mg/dl (0.6-1.2) L 04/07/22 06:02 Est Cr Clr Drug Dosing 98.1 ml/min 04/07/22 06:02 Est GFR ( Amer) 112.0 ml/min 04/07/22 06:02 Est GFR (Non-Af Amer) 96.7 ml/min 04/07/22 06:02 BUN/Creatinine Ratio 64.4 (10-20) H 04/07/22 06:02 Glucose 126 mg/dl (70-99(Fasting)) H 04/07/22 06:02 Calcium 8.7 mg/dl (8.5-10.1) 04/07/22 06:02 Phosphorus 3.0 mg/dl (2.5-4.9) 03/29/22 05:57 Magnesium 2.3 mg/dl (1.7-2.4) 04/05/22 07:00 Total Bilirubin 0.4 mg/dl (0.2-1.0) 03/20/22 16:48 AST 47 U/L (13-39) H 03/20/22 16:48 ALT 70 U/L (7-52) H 03/20/22 16:48 Alkaline Phosphatase 68 U/L (34-104) 03/20/22 16:48 Troponin I High Sens 4.7 pg/ml (0-14) 03/20/22 16:48 C-Reactive Protein 2.98 mg/dl (0-0.5) H 03/31/22 05:18 B-Natriuretic Peptide 25 pg/ml (0-100) 04/03/22 13:50 Total Protein 6.7 gm/dl (6.0-8.3) 03/20/22 16:48 Albumin 4.1 gm/dl (3.4-5.0) 03/20/22 16:48 Globulin 2.6 gm/dl (2.5-4.0) 03/20/22 16:48 Albumin/Globulin Ratio 1.6 (0.9-2) 03/20/22 16:48 Procalcitonin < 0.05 ng/ml (0-0.5) 04/03/22 13:50 Urine Color Yellow 03/25/22 17:50 Urine Appearance Clear (Clear) 03/25/22 17:50 Urine pH 7.5 (4.5-7.5) 03/25/22 17:50 Ur Specific [place] 1.006 (1.000-1.030) 03/25/22 17:50 Urine Protein Negative (Negative) 03/25/22 17:50 Urine Glucose (UA) Negative (Negative) 03/25/22 17:50 Urine Ketones Negative (Negative) 03/25/22 17:50 Urine Blood Negative (Negative) 03/25/22 17:50 Urine Nitrite Negative (Negative) 03/25/22 17:50 Urine Bilirubin Negative (Negative) 03/25/22 17:50 Urine Urobilinogen Negative (Negative) 03/25/22 17:50 Ur Leukocyte Esterase Negative (Negative) 03/25/22 17:50 SARS-CoV-2 (PCR) POSITIVE (Negative) A* 03/20/22 17:05 Hepatitis C Ab (EIA) NON-REACTIVE (NON-REACTIVE) 03/21/22 06:09 Hep C Ab Signal/Cutoff 0.04 (<1.00) 03/21/22 06:09 Influenza Type A (PCR) Negative (Neg) 03/20/22 17:05 Influenza Type B (PCR) Negative (Neg) 03/20/22 17:05 RSV (RT-PCR) Negative (Neg) 03/20/22 17:[address] 03/21/22 13:30 CT SCAN OF THE CHEST WITHOUT IV CONTRAST CLINICAL HISTORY: Pneumonia. Covid. COMPARISON STUDY: Chest x-ray dated 03/20/2022. Chest CT dated 12/09/2014. TECHNIQUE: CT scan of the thorax was performed from the thoracic inlet to the upper abdomen. Images are reviewed in the axial, sagittal, and coronal planes. IV contrast was not administered for this examination as per the referring clinician. A dose lowering technique was utilized adhering to the principles of ALARA. CT DOSE: 630.72 mGy.cm FINDINGS: Thyroid: Imaged portions of the thyroid gland are normal in size and attenuation. Thoracic aorta: There is atherosclerotic calcification of the thoracic aorta, which is normal in caliber and demonstrates variant 3-vessel arch anatomy. There is a bovine arch, and the left vertebral artery arises directly from the thoracic aorta. Heart: The heart is normal in size and without pericardial effusion. There are calcifications of the coronary arteries and mitral annulus. Lungs and pleural spaces: Evaluation of the lung parenchyma is significantly degraded by motion artifact. Multifocal groundglass consolidation is seen throughout both lungs with a subpleural and lower lobe predominance. There is no pleural effusion. The trachea and central airways are clear. Mediastinum: There is no mediastinal lymphadenopathy. Glory: Not well assessed without IV contrast. Axillae: There is no axillary lymphadenopathy. Upper abdomen: A small hiatal hernia is noted. There is hepatic steatosis. The gallbladder surgically absent. Skeletal structures: The skeletal structures are osteopenic. Spondylotic change is seen throughout the thoracic spine and arthritic change is noted in the shoulders. No lytic or blastic bony lesions are seen. IMPRESSION: 1. Multifocal groundglass consolidation is seen throughout both lungs as detailed above. This is consistent with reported history of a viral pneumonia. Radiographic follow-up resolution is recommended. 2. No pleural effusion is identified. 3. Hepatic steatosis. 4. Additional findings as above. ACT 112: Negative or not required by law. Electronically signed by: Ariel Bolaños M.D. 03/21/2022 4:14 PM Venous Doppler Study 03/21/22 13:59 BILATERAL LOWER EXTREMITY VENOUS DOPPLER HISTORY: Acute pain of the right lower extremity leg pain, r/o DVT COMPARISON STUDY: 12/09/2014. FINDINGS: There is normal compressibility, flow, and augmentation within the bilateral lower extremity deep venous systems. Mild stranding within the left popliteal vein may represent a chronic nonocclusive thrombus, unchanged from 2015. IMPRESSION: No acute DVT within the right or left lower extremity. ACT 112: Negative or not required by law. Electronically signed by: Ethan Celeste M.D. 03/21/2022 9:06 PM Chest X-Ray 04/06/22 07:26 XR chest 1V portable HISTORY: Cough. follow up on pulmonary infiltrates COMPARISON: Chest 04/03/2022. FINDINGS: No pneumothorax. No pleural effusions. There are low lung volumes. Multifocal bilateral airspace opacities persist. This is most pronounced within the left lower lobe. The heart remains normal in size. No evidence for pulmonary edema. Lumbar spinal fusion hardware is partially visualized. IMPRESSION: No significant change in the multifocal bilateral airspace opacities suggestive of a viral pneumonia. ACT 112: Negative or not required by law. Electronically signed by: Mahad Cuellar M.D. 04/06/2022 10:16 AM
[2022-04-07] MEDS: ACETAMINOPHEN 325 MG TAB PO PRN (13:18)
[2022-04-07] MEDS: LATANOPROST 0.005% OP SOLN 2.5 ML BTL OP SCH (20:00)
[2022-04-07] MEDS: LORazepam 0.5 MG TAB PO PRN (23:31)
[2022-04-08] MEDS: ACETAMINOPHEN 325 MG TAB PO PRN ×3 (02:50→21:20)
[2022-04-08 06:27] LABS: Basophils # (auto) 0.05 K/uL (0-0.2); Basophils % (auto) 0.6 %; Eosinophils # (auto) 0.36 K/uL (0-0.50); Eosinophils % (auto) 4.2 %; Hematocrit (blood only) 41.3 % (34.1-44.9); Hemoglobin 13.8 g/dl (12.0-16.0); Immature Granulocytes # (auto) 0.42 K/uL (0.00-0.02); Immature Granulocytes % (auto) 4.8 %; Lymphocytes # (auto) 0.79 K/uL (1.2-3.4); Lymphocytes % (auto) 9.1 %; Mean Corpuscular Hemoglobin 32.7 pg (25.0-34.0); Mean Corpuscular Hgb Conc 33.4 g/dL (32.0-36.0); Mean Corpuscular Volume 97.9 fL (80.0-100.0); Mean Platelet Volume 9.3 fL (9.4-12.3); Monocytes # (auto) 0.76 K/uL (0.24-0.82); Monocytes % (auto) 8.8 %; Neutrophils # (auto) 6.28 K/uL (1.4-6.5); Neutrophils % (auto) 72.5 %; Platelet Count 194 K/uL (130-400); RDW Coefficient of Variation 13.5 % (11.5-14.5); RDW Standard Deviation 48.6 fL (36.4-46.3); Red Blood Count 4.22 M/uL (3.93-5.22); White Blood Count 8.66 K/ul (4.8-10.8)
[2022-04-08] MEDS: IPRATROPIUM BROMIDE NEB SOLN 0.02% 2.5 ML VIAL INH SCH ×4 (07:25→20:05)
[2022-04-08] MEDS: LEVALBUTEROL 1.25MG/0.5ML NEB INH SCH ×4 (07:25→20:05)
[2022-04-08 07:28] LABS: BUN Creatinine Ratio 36.9 (10-20); Creatinine Clr Calc Pharmacy 67.9 ml/min; Est GFR (African American) 99.3 ml/min; Est GFR (Non-African American) 85.6 ml/min; Potassium 4.4 mmol/L (3.5-5.1)
[2022-04-08] MEDS: CLOTRIMAZOLE 10 MG TROCHE BUCCAL SCH ×5 (07:48→23:42)
[2022-04-08] MEDS: FLUCONAZOLE 100 MG TAB PO SCH (07:49)
[2022-04-08] MEDS: DULoxetine HCL 60 MG CAP PO SCH (07:49)
[2022-04-08] MEDS: PANTOprazole 40 MG TAB PO SCH (07:49)
[2022-04-08] MEDS: GABAPENTIN 800 MG TAB PO SCH ×3 (07:49→19:50)
[2022-04-08] MEDS: METOPROLOL SUCC 25MG EXT REL TAB PO SCH (07:51)
[2022-04-08] MEDS: APIXABAN 5 MG TABLET PO SCH ×2 (07:51→19:50)
[2022-04-08] MEDS: DICLOFENAC SOD 1% GEL 100 GM TUBE EXT SCH ×2 (07:52→21:10)
[2022-04-08] MEDS: lisinopril 2.5 MG TAB PO SCH (07:53)
[2022-04-08] MEDS: ATORVASTATIN 20 MG TAB PO SCH (07:53)
[2022-04-08] MEDS: ADVANCED PROBIOTIC 1250 MG CAPSULE PO SCH (07:54)
[2022-04-08] MEDS: FOLIC ACID 1 MG TAB PO SCH (07:54)
--- NOTE | 2022-04-08 11:40 | Hospitalist Progress Note ---
Date of Service April 08, 2022 Assessment & Plan (1) COVID-19: Plan: Patient is a 77-year-old female with PMH HTN, HLD, PE/DVT s/p IVC filter, NAFLD, anxiety, who presented to the ED for evaluation of cough and shortness of breath. She was tested for COVID-19 infection as an outpatient on 03/15. She was on doxycycline and prednisone which she received from urgent clinic. She presented on 03/20 with worsening shortness of breath. She was placed on high flow nasal cannula along with high-dose of steroids for COVID-19 pneumonia. She was also given Lasix intermittently for possible volume overload. Her oxygen was weaned off from high flow nasal cannula to nasal cannula on 04/04. She has completed a course of doxycycline and levaquin. She also completed course of prolonged steroids on 04/05. Plan; Continue to try to wean off oxygen to maintain saturation above 92%. - On Lasix 20mg once daily. Status post Decadron on 04/05. Status post course of doxycycline and levaquin - She will need follow-up CT scan and pulmonary function test in 3 to 4 months depending on clinical course as per pulmonology. (2) Bilateral pneumonia: Plan: Possible superimposed bacterial pneumonia Speech eval completed --no overt signs or symptoms of aspiration or dysphagia. Patient educated on aspiration and GERD precautions. [employer]AT[employer]ER recommending regular diet with thin liquids. We will get easy to chew diet (3) Oral candidiasis: Plan: Was on prolonged course of steroids Had trial of nystatin and clotrimazole. Started on fluconazole 200 mg loading dose followed by 100 mg once a day from 04/07. QTC reviewed; 445. (4) Hypertension: Plan: BP controlled, continue metoprolol On lisinopril as patient's home benazepril is nonformulary Continue to hold HCTZ (5) Hx pulmonary embolism: (6) History of DVT of lower extremity: Plan: Status post provoked DVT/PE about 10 years ago, Status post IVC filter Known history of MTHFR mutation Not on anticoagulation as an outpatient Saw [facility] vascular surgery 1 month ago, removal of IVC filter plan Presently, BL LE Doppler negative for DVT Per Dr. Donaldson, patient high risk for development of clot around IVC filter given age of the filter, COVID status Recommend full anticoagulation with Eliquis 5 mg p.o. twice daily Discussed with patient, no history of hemorrhage Eliquis 5 mg p.o. twice daily started on 04/04 (7) DVT prophylaxis: Plan: Eliquis 5 mg p.o. twice daily started on 04/04 Plan Disposition Patient will need halfway facility placement when medically stable. CM on board Admission and Anticipated Discharge Date Admission Date: March 20, 2022 Subjective Comfortable; currenly at 5L/min. SOB improve, still complains to sore throat. Review of Systems Review of Systems: All systems reviewed & are unremarkable except as noted in Subjective Physical Exam Physical Exam: General- oriented x 3, no in any distress Eyes- anicteric Neck- no JVD Lungs-diminished but clear breath sounds bilaterally, no rales/wheezes Heart- normal rate, regular rhythm; no murmurs Abdomen- normal bowel sounds, nondistended, soft, nontender. Extremities- no pretibial edema, no calf tenderness Neuro- alert, oriented x 3; no gross focal neurologic deficits Skin- warm & dry Results & Data Results & Data ([facility]) Vital Signs (Past 12 Hours) Vital Signs Temp Pulse Pulse Resp BP Pulse Ox O2 Del Method 04/08/22 11:28 79 20 94 Nasal Cannula 04/08/22 11:13 Nasal Cannula 04/08/22 07:44 36.4 C L 77 28 H 148/98 H 94 Nasal Cannula, Nebulizer 04/08/22 07:25 79 22 94 Nasal Cannula 04/08/22 02:55 70 25 H 97 04/08/22 00:00 78 O2 Flow Rate FiO2 04/08/22 11:28 5 04/08/22 11:13 5 04/08/22 07:44 6 04/08/22 07:25 5 04/08/22 02:55 50 04/08/22 00:00 Laboratory Results Laboratory Results WBC 8.66 K/ul (4.8-10.8) 04/08/22 06:05 RBC 4.22 M/uL (3.93-5.22) 04/08/22 06:05 Hgb 13.8 g/dl (12.0-16.0) 04/08/22 06:05 Hct 41.3 % (34.1-44.9) 04/08/22 06:05 MCV 97.9 fL (80.0-100.0) 04/08/22 06:05 MCH 32.7 pg (25.0-34.0) 04/08/22 06:05 MCHC 33.4 g/dL (32.0-36.0) 04/08/22 06:05 RDW Std Deviation 48.6 fL (36.4-46.3) H 04/08/22 06:05 RDW Coeff of Blayne 13.5 % (11.5-14.5) 04/08/22 06:05 Plt Count 194 K/uL (130-400) 04/08/22 06:05 MPV 9.3 fL (9.4-12.3) L 04/08/22 06:05 Immature Gran % (Auto) 4.8 % 04/08/22 06:05 Neut % (Auto) 72.5 % 04/08/22 06:05 Lymph % (Auto) 9.1 % 04/08/22 06:05 [place] % (Auto) 8.8 % 04/08/22 06:05 Eos % (Auto) 4.2 % 04/08/22 06:05 Baso % (Auto) 0.6 % 04/08/22 06:05 Neut # (Auto) 6.28 K/uL (1.4-6.5) 04/08/22 06:05 Lymph # (Auto) 0.79 K/uL (1.2-3.4) L 04/08/22 06:05 [place] # (Auto) 0.76 K/uL (0.24-0.82) 04/08/22 06:05 Eos # (Auto) 0.36 K/uL (0-0.50) 04/08/22 06:05 Baso # (Auto) 0.05 K/uL (0-0.2) 04/08/22 06:05 Immature Gran # (Auto) 0.42 K/uL (0.00-0.02) H 04/08/22 06:05 PT 10.6 Seconds (9.0-12.0) 03/20/22 16:48 INR 1.0 (0.9-1.1) 03/20/22 16:48 APTT 25.6 Seconds (21.0-31.0) 03/20/22 16:48 PTT Ratio 0.9 03/20/22 16:48 ABG pH 7.54 (7.35-7.45) H* 03/27/22 10:52 ABG pCO2 30 mmHg (35-46) L 03/27/22 10:52 ABG pO2 53 mmHg (80-95) L 03/27/22 10:52 ABG HCO3 26 mmol/L (19-24) H 03/27/22 10:52 ABG O2 Saturation 87.7 % (90-95) L 03/27/22 10:52 ABG Base Excess 3.8 mEq/L (-9-1.8) H 03/27/22 10:52 Shayne Test Pos (Pos) 03/27/22 10:52 Oxygen Given 15 L 03/27/22 10:52 Sodium 137 mmol/L (136-145) 04/08/22 06:05 Potassium 4.4 mmol/L (3.5-5.1) 04/08/22 06:05 Chloride 101 mmol/L (98-107) 04/08/22 06:05 Carbon Dioxide 32 mmol/L (21-32) 04/08/22 06:05 Anion Gap 4 (3-11) 04/08/22 06:05 BUN 24 mg/dl (6-23) H 04/08/22 06:05 Creatinine 0.65 mg/dl (0.6-1.2) 04/08/22 06:05 Est Cr Clr Drug Dosing 67.9 ml/min 04/08/22 06:05 Est GFR ( Amer) 99.3 ml/min 04/08/22 06:05 Est GFR (Non-Af Amer) 85.6 ml/min 04/08/22 06:05 BUN/Creatinine Ratio 36.9 (10-20) H 04/08/22 06:05 Glucose 128 mg/dl (70-99(Fasting)) H 04/08/22 06:05 Calcium 9.0 mg/dl (8.5-10.1) 04/08/22 06:05 Phosphorus 3.0 mg/dl (2.5-4.9) 03/29/22 05:57 Magnesium 2.3 mg/dl (1.7-2.4) 04/05/22 07:00 Total Bilirubin 0.4 mg/dl (0.2-1.0) 03/20/22 16:48 AST 47 U/L (13-39) H 03/20/22 16:48 ALT 70 U/L (7-52) H 03/20/22 16:48 Alkaline Phosphatase 68 U/L (34-104) 03/20/22 16:48 Troponin I High Sens 4.7 pg/ml (0-14) 03/20/22 16:48 C-Reactive Protein 2.98 mg/dl (0-0.5) H 03/31/22 05:18 B-Natriuretic Peptide 25 pg/ml (0-100) 04/03/22 13:50 Total Protein 6.7 gm/dl (6.0-8.3) 03/20/22 16:48 Albumin 4.1 gm/dl (3.4-5.0) 03/20/22 16:48 Globulin 2.6 gm/dl (2.5-4.0) 03/20/22 16:48 Albumin/Globulin Ratio 1.6 (0.9-2) 03/20/22 16:48 Procalcitonin < 0.05 ng/ml (0-0.5) 04/03/22 13:50 Urine Color Yellow 03/25/22 17:50 Urine Appearance Clear (Clear) 03/25/22 17:50 Urine pH 7.5 (4.5-7.5) 03/25/22 17:50 Ur Specific [place] 1.006 (1.000-1.030) 03/25/22 17:50 Urine Protein Negative (Negative) 03/25/22 17:50 Urine Glucose (UA) Negative (Negative) 03/25/22 17:50 Urine Ketones Negative (Negative) 03/25/22 17:50 Urine Blood Negative (Negative) 03/25/22 17:50 Urine Nitrite Negative (Negative) 03/25/22 17:50 Urine Bilirubin Negative (Negative) 03/25/22 17:50 Urine Urobilinogen Negative (Negative) 03/25/22 17:50 Ur Leukocyte Esterase Negative (Negative) 03/25/22 17:50 SARS-CoV-2 (PCR) POSITIVE (Negative) A* 03/20/22 17:05 Hepatitis C Ab (EIA) NON-REACTIVE (NON-REACTIVE) 03/21/22 06:09 Hep C Ab Signal/Cutoff 0.04 (<1.00) 03/21/22 06:09 Influenza Type A (PCR) Negative (Neg) 03/20/22 17:05 Influenza Type B (PCR) Negative (Neg) 03/20/22 17:05 RSV (RT-PCR) Negative (Neg) 03/20/22 17:[address] 03/21/22 13:30 CT SCAN OF THE CHEST WITHOUT IV CONTRAST CLINICAL HISTORY: Pneumonia. Covid. COMPARISON STUDY: Chest x-ray dated 03/20/2022. Chest CT dated 12/09/2014. TECHNIQUE: CT scan of the thorax was performed from the thoracic inlet to the upper abdomen. Images are reviewed in the axial, sagittal, and coronal planes. IV contrast was not administered for this examination as per the referring clinician. A dose lowering technique was utilized adhering to the principles of ALARA. CT DOSE: 630.72 mGy.cm FINDINGS: Thyroid: Imaged portions of the thyroid gland are normal in size and attenuation . Thoracic aorta: There is atherosclerotic calcification of the thoracic aorta, which is normal in caliber and demonstrates variant 3-vessel arch anatomy. There is a bovine arch, and the left vertebral artery arises directly from the thoracic aorta. Heart: The heart is normal in size and without pericardial effusion. There are calcifications of the coronary arteries and mitral annulus. Lungs and pleural spaces: Evaluation of the lung parenchyma is significantly degraded by motion artifact. Multifocal groundglass consolidation is seen throughout both lungs with a subpleural and lower lobe predominance. There is no pleural effusion. The trachea and central airways are clear. Mediastinum: There is no mediastinal lymphadenopathy. Glory: Not well assessed without IV contrast. Axillae: There is no axillary lymphadenopathy. Upper abdomen: A small hiatal hernia is noted. There is hepatic steatosis. The gallbladder surgically absent. Skeletal structures: The skeletal structures are osteopenic. Spondylotic change is seen throughout the thoracic spine and arthritic change is noted in the shoulders. No lytic or blastic bony lesions are seen. IMPRESSION: 1. Multifocal groundglass consolidation is seen throughout both lungs as detailed above. This is consistent with reported history of a viral pneumonia. Radiographic follow-up resolution is recommended. 2. No pleural effusion is identified. 3. Hepatic steatosis. 4. Additional findings as above. ACT 112: Negative or not required by law. Electronically signed by: Ariel Bolaños M.D. 03/21/2022 4:14 PM Venous Doppler Study 03/21/22 13:59 BILATERAL LOWER EXTREMITY VENOUS DOPPLER HISTORY: Acute pain of the right lower extremity leg pain, r/o DVT COMPARISON STUDY: 12/09/2014. FINDINGS: There is normal compressibility, flow, and augmentation within the bilateral lower extremity deep venous systems. Mild stranding within the left popliteal vein may represent a chronic nonocclusive thrombus, unchanged from 2015. IMPRESSION: No acute DVT within the right or left lower extremity. ACT 112: Negative or not required by law. Electronically signed by: Ethan Celeste M.D. 03/21/2022 9:06 PM Chest X-Ray 04/06/22 07:26 XR chest 1V portable HISTORY: Cough. follow up on pulmonary infiltrates COMPARISON: Chest 04/03/2022. FINDINGS: No pneumothorax. No pleural effusions. There are low lung volumes. Multifocal bilateral airspace opacities persist. This is most pronounced within the left lower lobe. The heart remains normal in size. No evidence for pulmonary edema. Lumbar spinal fusion hardware is partially visualized. IMPRESSION: No significant change in the multifocal bilateral airspace opacities suggestive of a viral pneumonia. ACT 112: Negative or not required by law. Electronically signed by: Mahad Cuellar M.D. 04/06/2022 10:16 AM
[2022-04-08] MEDS ORDERED: FUROSEMIDE 40 MG/4 ML VIAL IV ONE (11:55)
[2022-04-08] MEDS: FUROSEMIDE 20 MG TAB PO SCH (12:56)
[2022-04-08] MEDS: LATANOPROST 0.005% OP SOLN 2.5 ML BTL OP SCH (21:09)
[2022-04-08] MEDS: LORazepam 0.5 MG TAB PO PRN (21:20)
[2022-04-09] MEDS: CLOTRIMAZOLE 10 MG TROCHE BUCCAL SCH ×5 (06:25→23:06)
[2022-04-09 07:10] LABS: Basophils # (auto) 0.06 K/uL (0-0.2); Basophils % (auto) 0.6 %; Eosinophils % (auto) 4.2 %; Hemoglobin 14.2 g/dl (12.0-16.0); Immature Granulocytes # (auto) 0.43 K/uL (0.00-0.02); Immature Granulocytes % (auto) 4.5 %; Lymphocytes # (auto) 1.11 K/uL (1.2-3.4); Lymphocytes % (auto) 11.7 %; Mean Corpuscular Hemoglobin 32.8 pg (25.0-34.0); Mean Corpuscular Hgb Conc 33.8 g/dL (32.0-36.0); Mean Platelet Volume 9.6 fL (9.4-12.3); Monocytes # (auto) 0.83 K/uL (0.24-0.82); Monocytes % (auto) 8.7 %; Neutrophils # (auto) 6.69 K/uL (1.4-6.5); Neutrophils % (auto) 70.3 %; Platelet Count 221 K/uL (130-400); RDW Coefficient of Variation 13.8 % (11.5-14.5); RDW Standard Deviation 49.1 fL (36.4-46.3); Red Blood Count 4.33 M/uL (3.93-5.22); White Blood Count 9.52 K/ul (4.8-10.8)
[2022-04-09 07:33] LABS: BUN Creatinine Ratio 36.7 (10-20); Calcium 9.4 mg/dl (8.5-10.1); Creatinine Clr Calc Pharmacy 73.6 ml/min; Est GFR (African American) 101.9 ml/min; Est GFR (Non-African American) 87.9 ml/min; Potassium 4.3 mmol/L (3.5-5.1)
[2022-04-09] MEDS: LEVALBUTEROL 1.25MG/0.5ML NEB INH SCH ×4 (07:48→20:07)
[2022-04-09] MEDS: IPRATROPIUM BROMIDE NEB SOLN 0.02% 2.5 ML VIAL INH SCH ×4 (07:48→20:07)
[2022-04-09] MEDS: ATORVASTATIN 20 MG TAB PO SCH (08:14)
[2022-04-09] MEDS: DICLOFENAC SOD 1% GEL 100 GM TUBE EXT SCH ×2 (08:14→19:39)
[2022-04-09] MEDS: APIXABAN 5 MG TABLET PO SCH ×2 (08:14→19:38)
[2022-04-09] MEDS: FLUCONAZOLE 100 MG TAB PO SCH (08:15)
[2022-04-09] MEDS: FOLIC ACID 1 MG TAB PO SCH (08:15)
[2022-04-09] MEDS: FUROSEMIDE 20 MG TAB PO SCH (08:15)
[2022-04-09] MEDS: DULoxetine HCL 60 MG CAP PO SCH (08:15)
[2022-04-09] MEDS: lisinopril 2.5 MG TAB PO SCH (08:16)
[2022-04-09] MEDS: GABAPENTIN 800 MG TAB PO SCH ×3 (08:16→19:41)
[2022-04-09] MEDS: ADVANCED PROBIOTIC 1250 MG CAPSULE PO SCH (08:16)
[2022-04-09] MEDS: METOPROLOL SUCC 25MG EXT REL TAB PO SCH (08:17)
[2022-04-09] MEDS: PANTOprazole 40 MG TAB PO SCH (08:17)
[2022-04-09] MEDS ORDERED: FLUCONAZOLE 100 MG TAB PO ONE (10:00)
[2022-04-09] MEDS ORDERED: BENZOCAINE/MENTHOL 18 LOZ/1 BOX MT PRN (10:47)
--- NOTE | 2022-04-09 10:48 | Hospitalist Progress Note ---
Date of Service April 09, 2022 Assessment & Plan (1) COVID-19: Plan: Patient is a 77-year-old female with PMH HTN, HLD, PE/DVT s/p IVC filter, NAFLD, anxiety, who presented to the ED for evaluation of cough and shortness of breath. She was tested for COVID-19 infection as an outpatient on 03/15. She was on doxycycline and prednisone which she received from urgent clinic. She presented on 03/20 with worsening shortness of breath. She was placed on high flow nasal cannula along with high-dose of steroids for COVID-19 pneumonia. She was also given Lasix intermittently for possible volume overload. Her oxygen was weaned off from high flow nasal cannula to nasal cannula on 04/04. She has completed a course of doxycycline and levaquin. She also completed course of prolonged steroids on 04/05. Plan; Continue to try to wean off oxygen to maintain saturation above 92%. - On Lasix 20mg once daily. Status post Decadron on 04/05. Status post course of doxycycline and levaquin - She will need follow-up CT scan and pulmonary function test in 3 to 4 months depending on clinical course as per pulmonology. (2) Bilateral pneumonia: Plan: Possible superimposed bacterial pneumonia Speech eval completed --no overt signs or symptoms of aspiration or dysphagia. Patient educated on aspiration and GERD precautions. [employer] W[employer]HOU[employer] WORKER recommending regular diet with thin liquids. We will get easy to chew diet (3) Oral candidiasis: Plan: Was on prolonged course of steroids Had trial of nystatin and clotrimazole. Started on fluconazole 200 mg loading dose followed by 100 mg once a day from 04/07. QTC reviewed; 445. Continues to have sore throat; increased the dose to 200mg once a day. (4) Hypertension: Plan: BP controlled, continue metoprolol On lisinopril as patient's home benazepril is nonformulary Continue to hold HCTZ (5) Hx pulmonary embolism: (6) History of DVT of lower extremity: Plan: Status post provoked DVT/PE about 10 years ago, Status post IVC filter Known history of MTHFR mutation Not on anticoagulation as an outpatient Saw [facility] vascular surgery 1 month ago, removal of IVC filter plan Presently, BL LE Doppler negative for DVT Per Dr. Donaldson, patient high risk for development of clot around IVC filter given age of the filter, COVID status Recommend full anticoagulation with Eliquis 5 mg p.o. twice daily Discussed with patient, no history of hemorrhage Eliquis 5 mg p.o. twice daily started on 04/04 (7) DVT prophylaxis: Plan: Eliquis 5 mg p.o. twice daily started on 04/04 Plan Disposition Patient will need longterm facility placement when medically stable.CM on board Admission and Anticipated Discharge Date Admission Date: March 20, 2022 Subjective Currently on 4 L of oxygen by nasal cannula. Reports that her shortness of breath has improved. Continues to have sore throat. Review of Systems Review of Systems: All systems reviewed & are unremarkable except as noted in Subjective Physical Exam Physical Exam: General- oriented x 3, no in any distress Eyes- anicteric Neck- no JVD Lungs-diminished at bases , no rales/wheezes Heart- normal rate, regular rhythm; no murmurs Abdomen- normal bowel sounds, nondistended, soft, nontender. Extremities- no pretibial edema, no calf tenderness Neuro- alert, oriented x 3; no gross focal neurologic deficits Skin- warm & dry Results & Data Results & Data ([facility]) Vital Signs (Past 12 Hours) Vital Signs Temp Pulse Pulse Pulse Resp BP Pulse Ox 04/09/22 08:00 04/09/22 07:57 36.4 C L 77 18 127/67 90 04/09/22 07:49 79 18 90 04/09/22 03:55 74 18 94 04/09/22 03:12 36.6 C 75 20 125/78 93 04/09/22 00:00 87 04/08/22 22:49 36.8 C 84 18 121/74 95 O2 Del Method O2 Flow Rate 04/09/22 08:00 Nasal Cannula 4 04/09/22 07:57 High Flow Nasal Cannula 4 04/09/22 07:49 Nasal Cannula 4 04/09/22 03:55 4 04/09/22 03:12 BiPAP 04/09/22 00:00 04/08/22 22:49 BiPAP Laboratory Results Laboratory Results WBC 9.52 K/ul (4.8-10.8) 04/09/22 06:21 RBC 4.33 M/uL (3.93-5.22) 04/09/22 06:21 Hgb 14.2 g/dl (12.0-16.0) 04/09/22 06:21 Hct 42.0 % (34.1-44.9) 04/09/22 06:21 MCV 97.0 fL (80.0-100.0) 04/09/22 06:21 MCH 32.8 pg (25.0-34.0) 04/09/22 06:21 MCHC 33.8 g/dL (32.0-36.0) 04/09/22 06:21 RDW Std Deviation 49.1 fL (36.4-46.3) H 04/09/22 06:21 RDW Coeff of Blayne 13.8 % (11.5-14.5) 04/09/22 06:21 Plt Count 221 K/uL (130-400) 04/09/22 06:21 MPV 9.6 fL (9.4-12.3) 04/09/22 06:21 Immature Gran % (Auto) 4.5 % 04/09/22 06:21 Neut % (Auto) 70.3 % 04/09/22 06:21 Lymph % (Auto) 11.7 % 04/09/22 06:21 [place] % (Auto) 8.7 % 04/09/22 06:21 Eos % (Auto) 4.2 % 04/09/22 06:21 Baso % (Auto) 0.6 % 04/09/22 06:21 Neut # (Auto) 6.69 K/uL (1.4-6.5) H 04/09/22 06:21 Lymph # (Auto) 1.11 K/uL (1.2-3.4) L 04/09/22 06:21 [place] # (Auto) 0.83 K/uL (0.24-0.82) H 04/09/22 06:21 Eos # (Auto) 0.40 K/uL (0-0.50) 04/09/22 06:21 Baso # (Auto) 0.06 K/uL (0-0.2) 04/09/22 06:21 Immature Gran # (Auto) 0.43 K/uL (0.00-0.02) H 04/09/22 06:21 PT 10.6 Seconds (9.0-12.0) 03/20/22 16:48 INR 1.0 (0.9-1.1) 03/20/22 16:48 APTT 25.6 Seconds (21.0-31.0) 03/20/22 16:48 PTT Ratio 0.9 03/20/22 16:48 ABG pH 7.54 (7.35-7.45) H* 03/27/22 10:52 ABG pCO2 30 mmHg (35-46) L 03/27/22 10:52 ABG pO2 53 mmHg (80-95) L 03/27/22 10:52 ABG HCO3 26 mmol/L (19-24) H 03/27/22 10:52 ABG O2 Saturation 87.7 % (90-95) L 03/27/22 10:52 ABG Base Excess 3.8 mEq/L (-9-1.8) H 03/27/22 10:52 Shayne Test Pos (Pos) 03/27/22 10:52 Oxygen Given 15 L 03/27/22 10:52 Sodium 139 mmol/L (136-145) 04/09/22 06:21 Potassium 4.3 mmol/L (3.5-5.1) 04/09/22 06:21 Chloride 100 mmol/L (98-107) 04/09/22 06:21 Carbon Dioxide 32 mmol/L (21-32) 04/09/22 06:21 Anion Gap 7 (3-11) 04/09/22 06:21 BUN 22 mg/dl (6-23) 04/09/22 06:21 Creatinine 0.60 mg/dl (0.6-1.2) 04/09/22 06:21 Est Cr Clr Drug Dosing 73.6 ml/min 04/09/22 06:21 Est GFR ( Amer) 101.9 ml/min 04/09/22 06:21 Est GFR (Non-Af Amer) 87.9 ml/min 04/09/22 06:21 BUN/Creatinine Ratio 36.7 (10-20) H 04/09/22 06:21 Glucose 118 mg/dl (70-99(Fasting)) H 04/09/22 06:21 Calcium 9.4 mg/dl (8.5-10.1) 04/09/22 06:21 Phosphorus 3.0 mg/dl (2.5-4.9) 03/29/22 05:57 Magnesium 2.3 mg/dl (1.7-2.4) 04/05/22 07:00 Total Bilirubin 0.4 mg/dl (0.2-1.0) 03/20/22 16:48 AST 47 U/L (13-39) H 03/20/22 16:48 ALT 70 U/L (7-52) H 03/20/22 16:48 Alkaline Phosphatase 68 U/L (34-104) 03/20/22 16:48 Troponin I High Sens 4.7 pg/ml (0-14) 03/20/22 16:48 C-Reactive Protein 2.98 mg/dl (0-0.5) H 03/31/22 05:18 B-Natriuretic Peptide 25 pg/ml (0-100) 04/03/22 13:50 Total Protein 6.7 gm/dl (6.0-8.3) 03/20/22 16:48 Albumin 4.1 gm/dl (3.4-5.0) 03/20/22 16:48 Globulin 2.6 gm/dl (2.5-4.0) 03/20/22 16:48 Albumin/Globulin Ratio 1.6 (0.9-2) 03/20/22 16:48 Procalcitonin < 0.05 ng/ml (0-0.5) 04/03/22 13:50 Urine Color Yellow 03/25/22 17:50 Urine Appearance Clear (Clear) 03/25/22 17:50 Urine pH 7.5 (4.5-7.5) 03/25/22 17:50 Ur Specific [place] 1.006 (1.000-1.030) 03/25/22 17:50 Urine Protein Negative (Negative) 03/25/22 17:50 Urine Glucose (UA) Negative (Negative) 03/25/22 17:50 Urine Ketones Negative (Negative) 03/25/22 17:50 Urine Blood Negative (Negative) 03/25/22 17:50 Urine Nitrite Negative (Negative) 03/25/22 17:50 Urine Bilirubin Negative (Negative) 03/25/22 17:50 Urine Urobilinogen Negative (Negative) 03/25/22 17:50 Ur Leukocyte Esterase Negative (Negative) 03/25/22 17:50 SARS-CoV-2 (PCR) POSITIVE (Negative) A* 03/20/22 17:05 Hepatitis C Ab (EIA) NON-REACTIVE (NON-REACTIVE) 03/21/22 06:09 Hep C Ab Signal/Cutoff 0.04 (<1.00) 03/21/22 06:09 Influenza Type A (PCR) Negative (Neg) 03/20/22 17:05 Influenza Type B (PCR) Negative (Neg) 03/20/22 17:05 RSV (RT-PCR) Negative (Neg) 03/20/22 17:[address] 03/21/22 13:30 CT SCAN OF THE CHEST WITHOUT IV CONTRAST CLINICAL HISTORY: Pneumonia. Covid. COMPARISON STUDY: Chest x-ray dated 03/20/2022. Chest CT dated 12/09/2014. TECHNIQUE: CT scan of the thorax was performed from the thoracic inlet to the upper abdomen. Images are reviewed in the axial, sagittal, and coronal planes. IV contrast was not administered for this examination as per the referring clinician. A dose lowering technique was utilized adhering to the principles of ALARA. CT DOSE: 630.72 mGy.cm FINDINGS: Thyroid: Imaged portions of the thyroid gland are normal in size and attenuation. Thoracic aorta: There is atherosclerotic calcification of the thoracic aorta, which is normal in caliber and demonstrates variant 3-vessel arch anatomy. There is a bovine arch, and the left vertebral artery arises directly from the thoracic aorta. Heart: The heart is normal in size and without pericardial effusion. There are calcifications of the coronary arteries and mitral annulus. Lungs and pleural spaces: Evaluation of the lung parenchyma is significantly degraded by motion artifact. Multifocal groundglass consolidation is seen throughout both lungs with a subpleural and lower lobe predominance. There is no pleural effusion. The trachea and central airways are clear. Mediastinum: There is no mediastinal lymphadenopathy. Glory: Not well assessed without IV contrast. Axillae: There is no axillary lymphadenopathy. Upper abdomen: A small hiatal hernia is noted. There is hepatic steatosis. The gallbladder surgically absent. Skeletal structures: The skeletal structures are osteopenic. Spondylotic change is seen throughout the thoracic spine and arthritic change is noted in the shoulders. No lytic or blastic bony lesions are seen. IMPRESSION: 1. Multifocal groundglass consolidation is seen throughout both lungs as detailed above. This is consistent with reported history of a viral pneumonia. Radiographic follow-up resolution is recommended. 2. No pleural effusion is identified. 3. Hepatic steatosis. 4. Additional findings as above. ACT 112: Negative or not required by law. Electronically signed by: Ariel Bolaños M.D. 03/21/2022 4:14 PM Venous Doppler Study 03/21/22 13:59 BILATERAL LOWER EXTREMITY VENOUS DOPPLER HISTORY: Acute pain of the right lower extremity leg pain, r/o DVT COMPARISON STUDY: 12/09/2014. FINDINGS: There is normal compressibility, flow, and augmentation within the bilateral lower extremity deep venous systems. Mild stranding within the left popliteal vein may represent a chronic nonocclusive thrombus, unchanged from 2015. IMPRESSION: No acute DVT within the right or left lower extremity. ACT 112: Negative or not required by law. Electronically signed by: Ethan Celeste M.D. 03/21/2022 9:06 PM Chest X-Ray 04/06/22 07:26 XR chest 1V portable HISTORY: Cough. follow up on pulmonary infiltrates COMPARISON: Chest 04/03/2022. FINDINGS: No pneumothorax. No pleural effusions. There are low lung volumes. Multifocal bilateral airspace opacities persist. This is most pronounced within the left lower lobe. The heart remains normal in size. No evidence for pulmonary edema. Lumbar spinal fusion hardware is partially visualized. IMPRESSION: No significant change in the multifocal bilateral airspace opacities suggestive of a viral pneumonia. ACT 112: Negative or not required by law. Electronically signed by: Mahad Cuellar M.D. 04/06/2022 10:16 AM
[2022-04-09] MEDS: ACETAMINOPHEN 325 MG TAB PO PRN ×2 (11:54→20:42)
[2022-04-09] MEDS: BENZOCAINE/MENTHOL 18 LOZ/1 BOX MT SCH ×4 (12:44→23:07)
[2022-04-09] MEDS: guaiFENesin/DEXTROM SYRUP 100MG/10MG 5ML UDC PO PRN (19:14)
[2022-04-09] MEDS: LATANOPROST 0.005% OP SOLN 2.5 ML BTL OP SCH (19:39)
[2022-04-09] MEDS: LORazepam 0.5 MG TAB PO PRN (20:41)
[2022-04-10] MEDS: guaiFENesin/DEXTROM SYRUP 100MG/10MG 5ML UDC PO PRN ×2 (01:32→18:28)
[2022-04-10] MEDS: BENZOCAINE/MENTHOL 18 LOZ/1 BOX MT SCH ×6 (03:00→22:35)
[2022-04-10] MEDS: CLOTRIMAZOLE 10 MG TROCHE BUCCAL SCH ×5 (06:31→22:35)
[2022-04-10 06:40] LABS: Basophils # (auto) 0.05 K/uL (0-0.2); Basophils % (auto) 0.7 %; Eosinophils # (auto) 0.41 K/uL (0-0.50); Eosinophils % (auto) 5.4 %; Hemoglobin 13.4 g/dl (12.0-16.0); Immature Granulocytes % (auto) 3.9 %; Lymphocytes # (auto) 1.03 K/uL (1.2-3.4); Lymphocytes % (auto) 13.5 %; Mean Corpuscular Hemoglobin 33.3 pg (25.0-34.0); Mean Corpuscular Hgb Conc 34.4 g/dL (32.0-36.0); Mean Corpuscular Volume 96.8 fL (80.0-100.0); Mean Platelet Volume 9.5 fL (9.4-12.3); Monocytes # (auto) 0.76 K/uL (0.24-0.82); Neutrophils # (auto) 5.06 K/uL (1.4-6.5); Neutrophils % (auto) 66.5 %; Platelet Count 199 K/uL (130-400); RDW Coefficient of Variation 13.9 % (11.5-14.5); Red Blood Count 4.03 M/uL (3.93-5.22); White Blood Count 7.61 K/ul (4.8-10.8)
[2022-04-10] MEDS: LEVALBUTEROL 1.25MG/0.5ML NEB INH SCH ×4 (07:10→19:22)
[2022-04-10] MEDS: IPRATROPIUM BROMIDE NEB SOLN 0.02% 2.5 ML VIAL INH SCH ×4 (07:11→19:22)
[2022-04-10 07:13] LABS: BUN Creatinine Ratio 38.9 (10-20); Calcium 9.5 mg/dl (8.5-10.1); Creatinine Clr Calc Pharmacy 81.7 ml/min; Est GFR (African American) 105.5 ml/min
[2022-04-10] MEDS: DICLOFENAC SOD 1% GEL 100 GM TUBE EXT SCH ×2 (08:07→20:18)
[2022-04-10] MEDS: APIXABAN 5 MG TABLET PO SCH ×2 (08:07→20:17)
[2022-04-10] MEDS: ATORVASTATIN 20 MG TAB PO SCH (08:07)
[2022-04-10] MEDS: DULoxetine HCL 60 MG CAP PO SCH (08:08)
[2022-04-10] MEDS: FOLIC ACID 1 MG TAB PO SCH (08:09)
[2022-04-10] MEDS: FLUCONAZOLE 100 MG TAB PO SCH (08:09)
[2022-04-10] MEDS: FUROSEMIDE 20 MG TAB PO SCH (08:09)
[2022-04-10] MEDS: lisinopril 2.5 MG TAB PO SCH (08:10)
[2022-04-10] MEDS: GABAPENTIN 800 MG TAB PO SCH ×3 (08:10→20:17)
[2022-04-10] MEDS: ADVANCED PROBIOTIC 1250 MG CAPSULE PO SCH (08:10)
[2022-04-10] MEDS: PANTOprazole 40 MG TAB PO SCH (08:11)
[2022-04-10] MEDS: METOPROLOL SUCC 25MG EXT REL TAB PO SCH (08:11)
--- NOTE | 2022-04-10 11:38 | Hospitalist Progress Note ---
Date of Service April 10, 2022 Assessment & Plan (1) COVID-19: Plan: Patient is a 77-year-old female with PMH HTN, HLD, PE/DVT s/p IVC filter, NAFLD, anxiety, who presented to the ED for evaluation of cough and shortness of breath. She was tested for COVID-19 infection as an outpatient on 03/15. She was on doxycycline and prednisone which she received from urgent clinic. She presented on 03/20 with worsening shortness of breath. She was placed on high flow nasal cannula along with high-dose of steroids for COVID-19 pneumonia. She was also given Lasix intermittently for possible volume overload. Her oxygen was weaned off from high flow nasal cannula to nasal cannula on 04/04. She has completed a course of doxycycline and levaquin. She also completed course of prolonged steroids on 04/05. Plan; Continue to try to wean off oxygen to maintain saturation above 92%. - On Lasix 20mg once daily. Status post Decadron on 04/05. Status post course of doxycycline and levaquin - She will need follow-up CT scan and pulmonary function test in 3 to 4 months depending on clinical course as per pulmonology. Isolation removed on 04/09 as per recommendation by infectious disease control. (2) Bilateral pneumonia: Plan: Possible superimposed bacterial pneumonia Speech eval completed --no overt signs or symptoms of aspiration or dysphagia. Patient educated on aspiration and GERD precautions. [employer]ER recommending regular diet with thin liquids. We will get easy to chew diet (3) Oral candidiasis: Plan: Was on prolonged course of steroids Had trial of nystatin and clotrimazole. Started on fluconazole 200 mg loading dose followed by 100 mg once a day from 04/07. QTC reviewed; 445. Continues to have sore throat; increased the dose to 200mg once a day since 04/09. Improvement noted in patient symptoms. (4) Hypertension: Plan: BP controlled, continue metoprolol On lisinopril as patient's home benazepril is nonformulary Continue to hold HCTZ (5) Hx pulmonary embolism: (6) History of DVT of lower extremity: Plan: Status post provoked DVT/PE about 10 years ago, Status post IVC filter Known history of MTHFR mutation Not on anticoagulation as an outpatient Saw [facility] vascular surgery 1 month ago, removal of IVC filter plan Presently, BL LE Doppler negative for DVT Per Dr. Donaldson, patient high risk for development of clot around IVC filter given age of the filter, COVID status Recommend full anticoagulation with Eliquis 5 mg p.o. twice daily Discussed with patient, no history of hemorrhage Eliquis 5 mg p.o. twice daily started on 04/04 (7) DVT prophylaxis: Plan: Eliquis 5 mg p.o. twice daily started on 04/04 Plan Disposition Patient will need long term facility placement when medically stable. Patient is on 4 L of nasal cannula presently. She might have fluctuating saturation on exertion. Patient wants to go to acute rehab at [facility]; the maximum oxygen requirement at [facility] is at 4 L/min. Therapy to update patient note so that case management can start authorization. Admission and Anticipated Discharge Date Admission Date: March 20, 2022 Subjective Patient is comfortably sitting up on the chair. She reports getting short of breath on minimal exertion. She also reports that her sore throat has improved compared to yesterday. Review of Systems Review of Systems: All systems reviewed & are unremarkable except as noted in Subjective Physical Exam Physical Exam: General- oriented x 3, no in any distress Eyes- anicteric Neck- no JVD Lungs-diminished at bases , no rales/wheezes Heart- normal rate, regular rhythm; no murmurs Abdomen- normal bowel sounds, nondistended, soft, nontender. Extremities- no pretibial edema, no calf tenderness Neuro- alert, oriented x 3; no gross focal neurologic deficits Skin- warm & dry Results & Data Results & Data ([facility]) Vital Signs (Past 12 Hours) Vital Signs Temp Pulse Pulse Resp BP BP Pulse Ox 04/10/22 11:25 88 18 92 04/10/22 08:00 04/10/22 07:58 36.8 C 88 21 115/94 89 L 04/10/22 07:11 71 18 94 04/10/22 02:30 36.8 C 79 26 H 126/70 93 04/10/22 00:00 94 H O2 Del Method O2 Flow Rate 04/10/22 11:25 Nasal Cannula 4 04/10/22 08:00 Nasal Cannula 4 04/10/22 07:58 High Flow Nasal Cannula 4 04/10/22 07:11 Nasal Cannula 4 04/10/22 02:30 Nasal Cannula 4 04/10/22 00:00 Laboratory Results Laboratory Results WBC 7.61 K/ul (4.8-10.8) 04/10/22 06:20 RBC 4.03 M/uL (3.93-5.22) 04/10/22 06:20 Hgb 13.4 g/dl (12.0-16.0) 04/10/22 06:20 Hct 39.0 % (34.1-44.9) 04/10/22 06:20 MCV 96.8 fL (80.0-100.0) 04/10/22 06:20 MCH 33.3 pg (25.0-34.0) 04/10/22 06:20 MCHC 34.4 g/dL (32.0-36.0) 04/10/22 06:20 RDW Std Deviation 50.0 fL (36.4-46.3) H 04/10/22 06:20 RDW Coeff of Blayne 13.9 % (11.5-14.5) 04/10/22 06:20 Plt Count 199 K/uL (130-400) 04/10/22 06:20 MPV 9.5 fL (9.4-12.3) 04/10/22 06:20 Immature Gran % (Auto) 3.9 % 04/10/22 06:20 Neut % (Auto) 66.5 % 04/10/22 06:20 Lymph % (Auto) 13.5 % 04/10/22 06:20 [place] % (Auto) 10.0 % 04/10/22 06:20 Eos % (Auto) 5.4 % 04/10/22 06:20 Baso % (Auto) 0.7 % 04/10/22 06:20 Neut # (Auto) 5.06 K/uL (1.4-6.5) 04/10/22 06:20 Lymph # (Auto) 1.03 K/uL (1.2-3.4) L 04/10/22 06:20 [place] # (Auto) 0.76 K/uL (0.24-0.82) 04/10/22 06:20 Eos # (Auto) 0.41 K/uL (0-0.50) 04/10/22 06:20 Baso # (Auto) 0.05 K/uL (0-0.2) 04/10/22 06:20 Immature Gran # (Auto) 0.30 K/uL (0.00-0.02) H 04/10/22 06:20 PT 10.6 Seconds (9.0-12.0) 03/20/22 16:48 INR 1.0 (0.9-1.1) 03/20/22 16:48 APTT 25.6 Seconds (21.0-31.0) 03/20/22 16:48 PTT Ratio 0.9 03/20/22 16:48 ABG pH 7.54 (7.35-7.45) H* 03/27/22 10:52 ABG pCO2 30 mmHg (35-46) L 03/27/22 10:52 ABG pO2 53 mmHg (80-95) L 03/27/22 10:52 ABG HCO3 26 mmol/L (19-24) H 03/27/22 10:52 ABG O2 Saturation 87.7 % (90-95) L 03/27/22 10:52 ABG Base Excess 3.8 mEq/L (-9-1.8) H 03/27/22 10:52 Shayne Test Pos (Pos) 03/27/22 10:52 Oxygen Given 15 L 03/27/22 10:52 Sodium 140 mmol/L (136-145) 04/10/22 06:20 Potassium 4.0 mmol/L (3.5-5.1) 04/10/22 06:20 Chloride 103 mmol/L (98-107) 04/10/22 06:20 Carbon Dioxide 32 mmol/L (21-32) 04/10/22 06:20 Anion Gap 5 (3-11) 04/10/22 06:20 BUN 21 mg/dl (6-23) 04/10/22 06:20 Creatinine 0.54 mg/dl (0.6-1.2) L 04/10/22 06:20 Est Cr Clr Drug Dosing 81.7 ml/min 04/10/22 06:20 Est GFR ( Amer) 105.5 ml/min 04/10/22 06:20 Est GFR (Non-Af Amer) 91.0 ml/min 04/10/22 06:20 BUN/Creatinine Ratio 38.9 (10-20) H 04/10/22 06:20 Glucose 126 mg/dl (70-99(Fasting)) H 04/10/22 06:20 Calcium 9.5 mg/dl (8.5-10.1) 04/10/22 06:20 Phosphorus 3.0 mg/dl (2.5-4.9) 03/29/22 05:57 Magnesium 2.3 mg/dl (1.7-2.4) 04/05/22 07:00 Total Bilirubin 0.4 mg/dl (0.2-1.0) 03/20/22 16:48 AST 47 U/L (13-39) H 03/20/22 16:48 ALT 70 U/L (7-52) H 03/20/22 16:48 Alkaline Phosphatase 68 U/L (34-104) 03/20/22 16:48 Troponin I High Sens 4.7 pg/ml (0-14) 03/20/22 16:48 C-Reactive Protein 2.98 mg/dl (0-0.5) H 03/31/22 05:18 B-Natriuretic Peptide 25 pg/ml (0-100) 04/03/22 13:50 Total Protein 6.7 gm/dl (6.0-8.3) 03/20/22 16:48 Albumin 4.1 gm/dl (3.4-5.0) 03/20/22 16:48 Globulin 2.6 gm/dl (2.5-4.0) 03/20/22 16:48 Albumin/Globulin Ratio 1.6 (0.9-2) 03/20/22 16:48 Procalcitonin < 0.05 ng/ml (0-0.5) 04/03/22 13:50 Urine Color Yellow 03/25/22 17:50 Urine Appearance Clear (Clear) 03/25/22 17:50 Urine pH 7.5 (4.5-7.5) 03/25/22 17:50 Ur Specific [place] 1.006 (1.000-1.030) 03/25/22 17:50 Urine Protein Negative (Negative) 03/25/22 17:50 Urine Glucose (UA) Negative (Negative) 03/25/22 17:50 Urine Ketones Negative (Negative) 03/25/22 17:50 Urine Blood Negative (Negative) 03/25/22 17:50 Urine Nitrite Negative (Negative) 03/25/22 17:50 Urine Bilirubin Negative (Negative) 03/25/22 17:50 Urine Urobilinogen Negative (Negative) 03/25/22 17:50 Ur Leukocyte Esterase Negative (Negative) 03/25/22 17:50 SARS-CoV-2 (PCR) POSITIVE (Negative) A* 03/20/22 17:05 Hepatitis C Ab (EIA) NON-REACTIVE (NON-REACTIVE) 03/21/22 06:09 Hep C Ab Signal/Cutoff 0.04 (<1.00) 03/21/22 06:09 Influenza Type A (PCR) Negative (Neg) 03/20/22 17:05 Influenza Type B (PCR) Negative (Neg) 03/20/22 17:05 RSV (RT-PCR) Negative (Neg) 03/20/22 17:[address] 03/21/22 13:30 CT SCAN OF THE CHEST WITHOUT IV CONTRAST CLINICAL HISTORY: Pneumonia. Covid. COMPARISON STUDY: Chest x-ray dated 03/20/2022. Chest CT dated 12/09/2014. TECHNIQUE: CT scan of the thorax was performed from the thoracic inlet to the upper abdomen. Images are reviewed in the axial, sagittal, and coronal planes. IV contrast was not administered for this examination as per the referring clinician. A dose lowering technique was utilized adhering to the principles of ALARA. CT DOSE: 630.72 mGy.cm FINDINGS: Thyroid: Imaged portions of the thyroid gland are normal in size and attenuation. Thoracic aorta: There is atherosclerotic calcification of the thoracic aorta, which is normal in caliber and demonstrates variant 3-vessel arch anatomy. There is a bovine arch, and the left vertebral artery arises directly from the thoracic aorta. Heart: The heart is normal in size and without pericardial effusion. There are calcifications of the coronary arteries and mitral annulus. Lungs and pleural spaces: Evaluation of the lung parenchyma is significantly degraded by motion artifact. Multifocal groundglass consolidation is seen throughout both lungs with a subpleural and lower lobe predominance. There is no pleural effusion. The trachea and central airways are clear. Mediastinum: There is no mediastinal lymphadenopathy. Glory: Not well assessed without IV contrast. Axillae: There is no axillary lymphadenopathy. Upper abdomen: A small hiatal hernia is noted. There is hepatic steatosis. The gallbladder surgically absent. Skeletal structures: The skeletal structures are osteopenic. Spondylotic change is seen throughout the thoracic spine and arthritic change is noted in the shoulders. No lytic or blastic bony lesions are seen. IMPRESSION: 1. Multifocal groundglass consolidation is seen throughout both lungs as detailed above. This is consistent with reported history of a viral pneumonia. Radiographic follow-up resolution is recommended. 2. No pleural effusion is identified. 3. Hepatic steatosis. 4. Additional findings as above. ACT 112: Negative or not required by law. Electronically signed by: Ariel Bolaños M.D. 03/21/2022 4:14 PM Venous Doppler Study 03/21/22 13:59 BILATERAL LOWER EXTREMITY VENOUS DOPPLER HISTORY: Acute pain of the right lower extremity leg pain, r/o DVT COMPARISON STUDY: 12/09/2014. FINDINGS: There is normal compressibility, flow, and augmentation within the bilateral lower extremity deep venous systems. Mild stranding within the left popliteal vein may represent a chronic nonocclusive thrombus, unchanged from 2015. IMPRESSION: No acute DVT within the right or left lower extremity. ACT 112: Negative or not required by law. Electronically signed by: Ethan Celeste M.D. 03/21/2022 9:06 PM Chest X-Ray 04/06/22 07:26 XR chest 1V portable HISTORY: Cough. follow up on pulmonary infiltrates COMPARISON: Chest 04/03/2022. FINDINGS: No pneumothorax. No pleural effusions. There are low lung volumes. Multifocal bilateral airspace opacities persist. This is most pronounced within the left lower lobe. The heart remains normal in size. No evidence for pulmonary edema. Lumbar spinal fusion hardware is partially visualized. IMPRESSION: No significant change in the multifocal bilateral airspace opacities suggestive of a viral pneumonia. ACT 112: Negative or not required by law. Electronically signed by: Mahad Cuellar M.D. 04/06/2022 10:16 AM
[2022-04-10] MEDS: ACETAMINOPHEN 325 MG TAB PO PRN ×3 (12:04→22:34)
[2022-04-10] MEDS: LATANOPROST 0.005% OP SOLN 2.5 ML BTL OP SCH (20:17)
[2022-04-10] MEDS: LORazepam 0.5 MG TAB PO PRN (22:35)
[2022-04-11] MEDS: CLOTRIMAZOLE 10 MG TROCHE BUCCAL SCH ×6 (05:26→23:21)
[2022-04-11] MEDS: BENZOCAINE/MENTHOL 18 LOZ/1 BOX MT SCH ×7 (05:26→23:21)
[2022-04-11] MEDS: ACETAMINOPHEN 325 MG TAB PO PRN ×2 (05:27→20:10)
[2022-04-11] MEDS: IPRATROPIUM BROMIDE NEB SOLN 0.02% 2.5 ML VIAL INH SCH ×4 (07:19→19:13)
[2022-04-11] MEDS: LEVALBUTEROL 1.25MG/0.5ML NEB INH SCH ×4 (07:19→19:13)
[2022-04-11] MEDS: DULoxetine HCL 60 MG CAP PO SCH (07:45)
[2022-04-11] MEDS: ATORVASTATIN 20 MG TAB PO SCH (07:45)
[2022-04-11] MEDS: PANTOprazole 40 MG TAB PO SCH (07:46)
[2022-04-11] MEDS: lisinopril 2.5 MG TAB PO SCH (07:46)
[2022-04-11] MEDS: FUROSEMIDE 20 MG TAB PO SCH (07:47)
[2022-04-11] MEDS: GABAPENTIN 800 MG TAB PO SCH ×3 (07:47→19:52)
[2022-04-11] MEDS: FOLIC ACID 1 MG TAB PO SCH (07:47)
[2022-04-11] MEDS: DICLOFENAC SOD 1% GEL 100 GM TUBE EXT SCH ×2 (07:48→19:53)
[2022-04-11] MEDS: METOPROLOL SUCC 25MG EXT REL TAB PO SCH (07:48)
[2022-04-11] MEDS: APIXABAN 5 MG TABLET PO SCH ×2 (07:48→19:53)
[2022-04-11] MEDS: ADVANCED PROBIOTIC 1250 MG CAPSULE PO SCH (07:49)
[2022-04-11] MEDS: FLUCONAZOLE 100 MG TAB PO SCH (07:50)
--- NOTE | 2022-04-11 14:10 | Hospitalist Progress Note ---
Date of Service April 11, 2022 Assessment & Plan (1) COVID-19: Plan: Patient is a 77-year-old female with PMH HTN, HLD, PE/DVT s/p IVC filter, NAFLD, anxiety, who presented to the ED for evaluation of cough and shortness of breath. She was tested for COVID-19 infection as an outpatient on 03/15. She was on doxycycline and prednisone which she received from urgent clinic. She presented on 03/20 with worsening shortness of breath. She was placed on high flow nasal cannula along with high-dose of steroids for COVID-19 pneumonia. She was also given Lasix intermittently for possible volume overload. Her oxygen was weaned off from high flow nasal cannula to nasal cannula on 04/04. She has completed a course of doxycycline and levaquin. She also completed course of prolonged steroids on 04/05. Plan; Continue to try to wean off oxygen to maintain saturation above 92%. - On Lasix 20mg once daily. Status post Decadron on 04/05. Status post course of doxycycline and levaquin - She will need follow-up CT scan and pulmonary function test in 3 to 4 months depending on clinical course as per pulmonology. Isolation removed on 04/09 as per recommendation by infectious disease control. (2) Bilateral pneumonia: Plan: Possible superimposed bacterial pneumonia Speech eval completed --no overt signs or symptoms of aspiration or dysphagia. Patient educated on aspiration and GERD precautions. 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 We will get easy to chew diet (3) Oral candidiasis: Plan: Was on prolonged course of steroids Had trial of nystatin and clotrimazole. Started on fluconazole 200 mg loading dose followed by 100 mg once a day from 04/07. QTC reviewed; 445. Continues to have sore throat; increased the dose to 200mg once a day since 04/09. Improvement noted in patient symptoms. Plan to give it for total of 7 days. (4) Hypertension: Plan: BP controlled, continue metoprolol On lisinopril as patient's home benazepril is nonformulary Continue to hold HCTZ (5) Hx pulmonary embolism: (6) History of DVT of lower extremity: Plan: Status post provoked DVT/PE about 10 years ago, Status post IVC filter Known history of MTHFR mutation Not on anticoagulation as an outpatient Saw [facility] vascular surgery 1 month ago, removal of IVC filter plan Presently, BL LE Doppler negative for DVT Per Dr. Donaldson, patient high risk for development of clot around IVC filter given age of the filter, COVID status Recommend full anticoagulation with Eliquis 5 mg p.o. twice daily Discussed with patient, no history of hemorrhage Eliquis 5 mg p.o. twice daily started on 04/04 (7) DVT prophylaxis: Plan: Eliquis 5 mg p.o. twice daily started on 04/04 Plan Disposition [facility] need [facility] when medically stable. Patient is on 4 L of nasal cannula presently. She might have fluctuating saturation on exertion. Patient wants to go to acute rehab at [facility]; the maximum oxygen requirement at [facility] is at 4 L/min. Therapy to update patient note so that case management can start authorization. Admission and Anticipated Discharge Date Admission Date: March 20, 2022 Subjective She is seen and examined at bedside. She reports that she she is walking more in her room. She tends to desaturate on exertion. She is at 5 L of nasal can nula at rest. Review of Systems Review of Systems: All systems reviewed & are unremarkable except as noted in Subjective Physical Exam Physical Exam: General- oriented x 3, no in any distress Eyes- anicteric Neck- no JVD Lungs-diminished at bases , crackles heard in bilateral mid lung field. Heart- normal rate, regular rhythm; no murmurs Abdomen- normal bowel sounds, nondistended, soft, nontender. Extremities- no pretibial edema, no calf tenderness Neuro- alert, oriented x 3; no gross focal neurologic deficits Skin- warm & dry Results & Data Results & Data ([facility]) Vital Signs (Past 12 Hours) Vital Signs Temp Pulse Pulse Pulse Resp BP BP 04/11/22 11:38 77 04/11/22 11:12 79 18 04/11/22 11:07 36.4 C L 79 17 118/74 04/11/22 09:16 04/11/22 07:42 36.4 C L 95 H 22 139/90 04/11/22 07:19 81 18 04/11/22 03:00 04/11/22 02:59 36.5 C 84 20 118/74 Pulse Ox O2 Del Method O2 Flow Rate 04/11/22 11:38 04/11/22 11:12 94 Nasal Cannula 5 04/11/22 11:07 93 Nasal Cannula 5 04/11/22 09:16 Nasal Cannula 5 04/11/22 07:42 90 Nasal Cannula 5 04/11/22 07:19 91 Nasal Cannula 4 04/11/22 03:00 High Flow Nasal Cannula 4 04/11/22 02:59 91 Nasal Cannula Laboratory Results Laboratory Results WBC 7.61 K/ul (4.8-10.8) 04/10/22 06:20 RBC 4.03 M/uL (3.93-5.22) 04/10/22 06:20 Hgb 13.4 g/dl (12.0-16.0) 04/10/22 06:20 Hct 39.0 % (34.1-44.9) 04/10/22 06:20 MCV 96.8 fL (80.0-100.0) 04/10/22 06:20 MCH 33.3 pg (25.0-34.0) 04/10/22 06:20 MCHC 34.4 g/dL (32.0-36.0) 04/10/22 06:20 RDW Std Deviation 50.0 fL (36.4-46.3) H 04/10/22 06:20 RDW Coeff of Blayne 13.9 % (11.5-14.5) 04/10/22 06:20 Plt Count 199 K/uL (130-400) 04/10/22 06:20 MPV 9.5 fL (9.4-12.3) 04/10/22 06:20 Immature Gran % (Auto) 3.9 % 04/10/22 06:20 Neut % (Auto) 66.5 % 04/10/22 06:20 Lymph % (Auto) 13.5 % 04/10/22 06:20 [place] % (Auto) 10.0 % 04/10/22 06:20 Eos % (Auto) 5.4 % 04/10/22 06:20 Baso % (Auto) 0.7 % 04/10/22 06:20 Neut # (Auto) 5.06 K/uL (1.4-6.5) 04/10/22 06:20 Lymph # (Auto) 1.03 K/uL (1.2-3.4) L 04/10/22 06:20 [place] # (Auto) 0.76 K/uL (0.24-0.82) 04/10/22 06:20 Eos # (Auto) 0.41 K/uL (0-0.50) 04/10/22 06:20 Baso # (Auto) 0.05 K/uL (0-0.2) 04/10/22 06:20 Immature Gran # (Auto) 0.30 K/uL (0.00-0.02) H 04/10/22 06:20 PT 10.6 Seconds (9.0-12.0) 03/20/22 16:48 INR 1.0 (0.9-1.1) 03/20/22 16:48 APTT 25.6 Seconds (21.0-31.0) 03/20/22 16:48 PTT Ratio 0.9 03/20/22 16:48 ABG pH 7.54 (7.35-7.45) H* 03/27/22 10:52 ABG pCO2 30 mmHg (35-46) L 03/27/22 10:52 ABG pO2 53 mmHg (80-95) L 03/27/22 10:52 ABG HCO3 26 mmol/L (19-24) H 03/27/22 10:52 ABG O2 Saturation 87.7 % (90-95) L 03/27/22 10:52 ABG Base Excess 3.8 mEq/L (-9-1.8) H 03/27/22 10:52 Shayne Test Pos (Pos) 03/27/22 10:52 Oxygen Given 15 L 03/27/22 10:52 Sodium 140 mmol/L (136-145) 04/10/22 06:20 Potassium 4.0 mmol/L (3.5-5.1) 04/10/22 06:20 Chloride 103 mmol/L (98-107) 04/10/22 06:20 Carbon Dioxide 32 mmol/L (21-32) 04/10/22 06:20 Anion Gap 5 (3-11) 04/10/22 06:20 BUN 21 mg/dl (6-23) 04/10/22 06:20 Creatinine 0.54 mg/dl (0.6-1.2) L 04/10/22 06:20 Est Cr Clr Drug Dosing 81.7 ml/min 04/10/22 06:20 Est GFR ( Amer) 105.5 ml/min 04/10/22 06:20 Est GFR (Non-Af Amer) 91.0 ml/min 04/10/22 06:20 BUN/Creatinine Ratio 38.9 (10-20) H 04/10/22 06:20 Glucose 126 mg/dl (70-99(Fasting)) H 04/10/22 06:20 Calcium 9.5 mg/dl (8.5-10.1) 04/10/22 06:20 Phosphorus 3.0 mg/dl (2.5-4.9) 03/29/22 05:57 Magnesium 2.3 mg/dl (1.7-2.4) 04/05/22 07:00 Total Bilirubin 0.4 mg/dl (0.2-1.0) 03/20/22 16:48 AST 47 U/L (13-39) H 03/20/22 16:48 ALT 70 U/L (7-52) H 03/20/22 16:48 Alkaline Phosphatase 68 U/L (34-104) 03/20/22 16:48 Troponin I High Sens 4.7 pg/ml (0-14) 03/20/22 16:48 C-Reactive Protein 2.98 mg/dl (0-0.5) H 03/31/22 05:18 B-Natriuretic Peptide 25 pg/ml (0-100) 04/03/22 13:50 Total Protein 6.7 gm/dl (6.0-8.3) 03/20/22 16:48 Albumin 4.1 gm/dl (3.4-5.0) 03/20/22 16:48 Globulin 2.6 gm/dl (2.5-4.0) 03/20/22 16:48 Albumin/Globulin Ratio 1.6 (0.9-2) 03/20/22 16:48 Procalcitonin < 0.05 ng/ml (0-0.5) 04/03/22 13:50 Urine Color Yellow 03/25/22 17:50 Urine Appearance Clear (Clear) 03/25/22 17:50 Urine pH 7.5 (4.5-7.5) 03/25/22 17:[address] 1.006 (1.000-1.030) 03/25/22 17:50 Urine Protein Negative (Negative) 03/25/22 17:50 Urine Glucose (UA) Negative (Negative) 03/25/22 17:50 Urine Ketones Negative (Negative) 03/25/22 17:50 Urine Blood Negative (Negative) 03/25/22 17:50 Urine Nitrite Negative (Negative) 03/25/22 17:50 Urine Bilirubin Negative (Negative) 03/25/22 17:50 Urine Urobilinogen Negative (Negative) 03/25/22 17:50 Ur Leukocyte Esterase Negative (Negative) 03/25/22 17:50 SARS-CoV-2 (PCR) POSITIVE (Negative) A* 03/20/22 17:05 Hepatitis C Ab (EIA) NON-REACTIVE (NON-REACTIVE) 03/21/22 06:09 Hep C Ab Signal/Cutoff 0.04 (<1.00) 03/21/22 06:09 Influenza Type A (PCR) Negative (Neg) 03/20/22 17:05 Influenza Type B (PCR) Negative (Neg) 03/20/22 17:05 RSV (RT-PCR) Negative (Neg) 03/20/22 17:[address] 03/21/22 13:30 CT SCAN OF THE CHEST WITHOUT IV CONTRAST CLINICAL HISTORY: Pneumonia. Covid. COMPARISON STUDY: Chest x-ray dated 03/20/2022. Chest CT dated 12/09/2014. TECHNIQUE: CT scan of the thorax was performed from the thoracic inlet to the upper abdomen. Images are reviewed in the axial, sagittal, and coronal planes. IV contrast was not administered for this examination as per the referring clinician. A dose lowering technique was utilized adhering to the principles of ALARA. CT DOSE: 630.72 mGy.cm FINDINGS: Thyroid: Imaged portions of the thyroid gland are normal in size and attenuation. Thoracic aorta: There is atherosclerotic calcification of the thoracic aorta, which is normal in caliber and demonstrates variant 3-vessel arch anatomy. There is a bovine arch, and the left vertebral artery arises directly from the thoracic aorta. Heart: The heart is normal in size and without pericardial effusion. There are calcifications of the coronary arteries and mitral annulus. Lungs and pleural spaces: Evaluation of the lung parenchyma is significantly degraded by motion artifact. Multifocal groundglass consolidation is seen throughout both lungs with a subpleural and lower lobe predominance. There is no pleural effusion. The trachea and central airways are clear. Mediastinum: There is no mediastinal lymphadenopathy. Glory: Not well assessed without IV contrast. Axillae: There is no axillary lymphadenopathy. Upper abdomen: A small hiatal hernia is noted. There is hepatic steatosis. The gallbladder surgically absent. Skeletal structures: The skeletal structures are osteopenic. Spondylotic change is seen throughout the thoracic spine and arthritic change is noted in the shoulders. No lytic or blastic bony lesions are seen. IMPRESSION: 1. Multifocal groundglass consolidation is seen throughout both lungs as detailed above. This is consistent with reported history of a viral pneumonia. Radiographic follow-up resolution is recommended. 2. No pleural effusion is identified. 3. Hepatic steatosis. 4. Additional findings as above. ACT 112: Negative or not required by law. Electronically signed by: Ariel Bolaños M.D. 03/21/2022 4:14 PM Venous Doppler Study 03/21/22 13:59 BILATERAL LOWER EXTREMITY VENOUS DOPPLER HISTORY: Acute pain of the right lower extremity leg pain, r/o DVT COMPARISON STUDY: 12/09/2014. FINDINGS: There is normal compressibility, flow, and augmentation within the bilateral lower extremity deep venous systems. Mild stranding within the left popliteal vein may represent a chronic nonocclusive thrombus, unchanged from 2015. IMPRESSION: No acute DVT within the right or left lower extremity. ACT 112: Negative or not required by law. Electronically signed by: Ethan Celeste M.D. 03/21/2022 9:06 PM Chest X-Ray 04/06/22 07:26 XR chest 1V portable HISTORY: Cough. follow up on pulmonary infiltrates COMPARISON: Chest 04/03/2022. FINDINGS: No pneumothorax. No pleural effusions. There are low lung volumes. Multifocal bilateral airspace opacities persist. This is most pronounced within the left lower lobe. The heart remains normal in size. No evidence for pulmonary edema. Lumbar spinal fusion hardware is partially visualized. IMPRESSION: No significant change in the multifocal bilateral airspace opacities suggestive of a viral pneumonia. ACT 112: Negative or not required by law. Electronically signed by: Mahad Cuellar M.D. 04/06/2022 10:16 AM
[2022-04-11] MEDS: LATANOPROST 0.005% OP SOLN 2.5 ML BTL OP SCH (19:53)
[2022-04-11] MEDS: LORazepam 0.5 MG TAB PO PRN (20:11)
[2022-04-12] MEDS: BENZOCAINE/MENTHOL 18 LOZ/1 BOX MT SCH ×5 (05:17→19:28)
[2022-04-12] MEDS: IPRATROPIUM BROMIDE NEB SOLN 0.02% 2.5 ML VIAL INH SCH ×4 (07:19→19:36)
[2022-04-12] MEDS: LEVALBUTEROL 1.25MG/0.5ML NEB INH SCH ×4 (07:19→19:36)
[2022-04-12 07:39] LABS: BUN Creatinine Ratio 29.4 (10-20); Creatinine Clr Calc Pharmacy 86.8 ml/min; Est GFR (African American) 107.5 ml/min; Est GFR (Non-African American) 92.8 ml/min; Potassium 3.9 mmol/L (3.5-5.1)
[2022-04-12] MEDS: FLUCONAZOLE 100 MG TAB PO SCH (09:50)
[2022-04-12] MEDS: GABAPENTIN 800 MG TAB PO SCH ×3 (09:50→20:21)
[2022-04-12] MEDS: ADVANCED PROBIOTIC 1250 MG CAPSULE PO SCH (09:51)
[2022-04-12] MEDS: ATORVASTATIN 20 MG TAB PO SCH (09:51)
[2022-04-12] MEDS: lisinopril 2.5 MG TAB PO SCH (09:52)
[2022-04-12] MEDS: CLOTRIMAZOLE 10 MG TROCHE BUCCAL SCH ×4 (09:52→19:27)
[2022-04-12] MEDS: APIXABAN 5 MG TABLET PO SCH ×2 (09:52→20:21)
[2022-04-12] MEDS: FUROSEMIDE 20 MG TAB PO SCH (09:53)
[2022-04-12] MEDS: FOLIC ACID 1 MG TAB PO SCH (09:53)
[2022-04-12] MEDS: PANTOprazole 40 MG TAB PO SCH (09:53)
[2022-04-12] MEDS: METOPROLOL SUCC 25MG EXT REL TAB PO SCH (09:54)
[2022-04-12] MEDS: DULoxetine HCL 60 MG CAP PO SCH (09:54)
[2022-04-12] MEDS: DICLOFENAC SOD 1% GEL 100 GM TUBE EXT SCH ×2 (09:55→20:22)
[2022-04-12] MEDS: guaiFENesin/DEXTROM SYRUP 100MG/10MG 5ML UDC PO PRN (09:58)
[2022-04-12] MEDS: ACETAMINOPHEN 325 MG TAB PO PRN ×2 (15:44→20:37)
[2022-04-12] MEDS ORDERED: FUROSEMIDE INJ 20 MG/2 ML VIAL IV ONE (17:03)
--- NOTE | 2022-04-12 18:21 | Hospitalist Progress Note ---
Date of Service April 12, 2022 Assessment & Plan (1) COVID-19: Plan: Patient is a 77-year-old female with PMH HTN, HLD, PE/DVT s/p IVC filter, NAFLD, anxiety, who presented to the ED for evaluation of cough and shortness of breath. She was tested for COVID-19 infection as an outpatient on 03/15. She was on doxycycline and prednisone which she received from urgent clinic. She presented on 03/20 with worsening shortness of breath. She was placed on high flow nasal cannula along with high-dose of steroids for COVID-19 pneumonia. She was also given Lasix intermittently for possible volume overload. Her oxygen was weaned off from high flow nasal cannula to nasal cannula on 04/04. She has completed a course of doxycycline and levaquin. She also completed course of prolonged steroids on 04/05. Plan; Continue to try to wean off oxygen to maintain saturation above 92%. - On Lasix 20mg once daily. Status post Decadron on 04/05. Status post course of doxycycline and levaquin - She will need follow-up CT scan and pulmonary function test in 3 to 4 months depending on clinical course as per pulmonology. Isolation removed on 04/09 as per recommendation by infectious disease control. - Continue incetive spirometry and flutter valve - Will give lasix 20mg IV x1 later (2) Bilateral pneumonia: Plan: Possible superimposed bacterial pneumonia Speech eval completed --no overt signs or symptoms of aspiration or dysphagia. Patient educated on aspiration and GERD precautions. 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 We will get easy to chew diet (3) Oral candidiasis: Plan: Was on prolonged course of steroids Had trial of nystatin and clotrimazole. Started on fluconazole 200 mg loading dose followed by 100 mg once a day from 04/07. QTC reviewed; 445. Continues to have sore throat; increased the dose to 200mg once a day since 04/09. Improvement noted in patient symptoms. Plan to give it for total of 7 days. Clinically improved (4) Hypertension: Plan: BP controlled, continue metoprolol On lisinopril as patient's home benazepril is nonformulary Continue to hold HCTZ (5) Hx pulmonary embolism: (6) History of DVT of lower extremity: Plan: Status post provoked DVT/PE about 10 years ago, Status post IVC filter Known history of MTHFR mutation Not on anticoagulation as an outpatient [facility] vascular surgery 1 month ago, removal of IVC filter plan Presently, BL LE Doppler negative for DVT Per Dr. Donaldson, patient high risk for development of clot around IVC filter given age of the filter, COVID status Recommend full anticoagulation with Eliquis 5 mg p.o. twice daily Discussed with patient, no history of hemorrhage Eliquis 5 mg p.o. twice daily started on 04/04 (7) DVT prophylaxis: Plan: Eliquis 5 mg p.o. twice daily started on 04/04 Admission and Anticipated Discharge Date Admission Date: March 20, 2022 Subjective Pt was seen and examined for SOB Sitting in chair with no acute distress Pt said that she continues to get tired with minimal exertion She said that she continue to cough Denies any chest pain, palpitation, dizziness and SOB Review of Systems Review of Systems: All systems reviewed & are unremarkable except as noted in Subjective Physical Exam Physical Exam: General- No acute distress Head- atraumatic Eyes- PERRL, EOMI, ENT- oropharynx clear Neck- supple, no JVD Lungs- diminished BS Heart- regular rhythm; no murmur Abdomen- normal bowel sounds, soft, nontender Extremities- no calf tenderness Neuro- alert, oriented x 3; PERRL, EOMI; no facial palsy; no dysarthria Skin- warm & dry Results & Data Results & Data ([facility]) Vital Signs (Past 12 Hours) Vital Signs Temp Pulse Pulse Resp BP Pulse Ox O2 Del Method 04/12/22 15:43 108 H 18 90 Nasal Cannula 04/12/22 15:19 36.8 C 105 H 22 140/72 88 L Nasal Cannula 04/12/22 14:08 04/12/22 11:48 92 04/12/22 11:43 36.8 C 97 H 18 118/74 90 Nasal Cannula 04/12/22 11:26 90 18 91 Nasal Cannula 04/12/22 11:26 Nasal Cannula 04/12/22 07:50 159/74 H 04/12/22 07:48 36.3 C L 87 22 90 Nasal Cannula 04/12/22 07:24 77 04/12/22 07:19 78 16 93 Nasal Cannula O2 Flow Rate 04/12/22 15:43 5 04/12/22 15:19 5 10/19/22 14:08 4 04/12/22 11:48 04/12/22 11:43 5 04/12/22 11:26 4 04/12/22 11:26 4 04/12/22 07:50 04/12/22 07:48 6 04/12/22 07:24 04/12/22 07:19 6
[2022-04-12] MEDS: LATANOPROST 0.005% OP SOLN 2.5 ML BTL OP SCH (20:22)
[2022-04-12] MEDS: LORazepam 0.5 MG TAB PO PRN (20:37)
[2022-04-13] MEDS: BENZOCAINE/MENTHOL 18 LOZ/1 BOX MT SCH ×7 (03:39→22:53)
[2022-04-13] MEDS: ACETAMINOPHEN 325 MG TAB PO PRN ×2 (03:39→15:27)
[2022-04-13] MEDS: CLOTRIMAZOLE 10 MG TROCHE BUCCAL SCH ×6 (03:39→22:53)
[2022-04-13 06:49] LABS: BUN Creatinine Ratio 33.3 (10-20); Calcium 9.2 mg/dl (8.5-10.1); Creatinine Clr Calc Pharmacy 77.7 ml/min; Est GFR (African American) 103.6 ml/min; Est GFR (Non-African American) 89.4 ml/min; Potassium 3.8 mmol/L (3.5-5.1)
[2022-04-13] MEDS: LEVALBUTEROL 1.25MG/0.5ML NEB INH SCH ×2 (07:25→11:20)
[2022-04-13] MEDS: IPRATROPIUM BROMIDE NEB SOLN 0.02% 2.5 ML VIAL INH SCH ×2 (07:25→11:20)
[2022-04-13] MEDS: APIXABAN 5 MG TABLET PO SCH ×2 (07:33→21:29)
[2022-04-13] MEDS: ATORVASTATIN 20 MG TAB PO SCH (07:33)
[2022-04-13] MEDS: PANTOprazole 40 MG TAB PO SCH (07:33)
[2022-04-13] MEDS: DULoxetine HCL 60 MG CAP PO SCH (07:33)
[2022-04-13] MEDS: GABAPENTIN 800 MG TAB PO SCH ×3 (07:33→21:31)
[2022-04-13] MEDS: FLUCONAZOLE 100 MG TAB PO SCH (07:33)
[2022-04-13] MEDS: ADVANCED PROBIOTIC 1250 MG CAPSULE PO SCH (07:34)
[2022-04-13] MEDS: FOLIC ACID 1 MG TAB PO SCH (07:34)
[2022-04-13] MEDS: lisinopril 2.5 MG TAB PO SCH (07:34)
[2022-04-13] MEDS: DICLOFENAC SOD 1% GEL 100 GM TUBE EXT SCH ×2 (07:34→21:31)
[2022-04-13] MEDS: FUROSEMIDE 20 MG TAB PO SCH (07:34)
[2022-04-13] MEDS: METOPROLOL SUCC 25MG EXT REL TAB PO SCH (07:34)
[2022-04-13] MEDS ORDERED: IPRATROPIUM BROMIDE NEB SOLN 0.02% 2.5 ML VIAL INH PRN (11:51)
[2022-04-13] MEDS ORDERED: LEVALBUTEROL 1.25MG/0.5ML NEB INH PRN (11:52)
[2022-04-13] MEDS ORDERED: FUROSEMIDE INJ 20 MG/2 ML VIAL IV ONE (17:00)
[2022-04-13] MEDS: LATANOPROST 0.005% OP SOLN 2.5 ML BTL OP SCH (21:32)
[2022-04-13] MEDS: LORazepam 0.5 MG TAB PO PRN (21:56)
--- NOTE | 2022-04-13 22:09 | Hospitalist Progress Note ---
Date of Service April 13, 2022 Assessment & Plan (1) COVID-19: Plan: Patient is a 77-year-old female with PMH HTN, HLD, PE/DVT s/p IVC filter, NAFLD, anxiety, who presented to the ED for evaluation of cough and shortness of breath. She was tested for COVID-19 infection as an outpatient on 03/15. She was on doxycycline and prednisone which she received from urgent clinic. She presented on 03/20 with worsening shortness of breath. She was placed on high flow nasal cannula along with high-dose of steroids for COVID-19 pneumonia. She was also given Lasix intermittently for possible volume overload. Her oxygen was weaned off from high flow nasal cannula to nasal cannula on 04/04. She has completed a course of doxycycline and levaquin. She also completed course of prolonged steroids on 04/05. Plan; Continue to try to wean off oxygen to maintain saturation above 92%. - On Lasix 20mg once daily. Status post Decadron on 04/05. Status post course of doxycycline and levaquin - She will need follow-up CT scan and pulmonary function test in 3 to 4 months depending on clinical course as per pulmonology. Isolation removed on 04/09 as per recommendation by infectious disease control. - Continue incetive spirometry and flutter valve - Will give lasix 20mg IV x1 today (2) Bilateral pneumonia: Plan: Possible superimposed bacterial pneumonia Speech eval completed --no overt signs or symptoms of aspiration or dysphagia. Patient educated on aspiration and GERD precautions. 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 We will get easy to chew diet (3) Oral candidiasis: Plan: Was on prolonged course of steroids Had trial of nystatin and clotrimazole. Started on fluconazole 200 mg loading dose followed by 100 mg once a day from 04/07. QTC reviewed; 445. Continues to have sore throat; increased the dose to 200mg once a day since 04/09. Improvement noted in patient symptoms. Plan to give it for total of 7 days. Clinically improved (4) Hypertension: Plan: BP controlled, continue metoprolol On lisinopril as patient's home benazepril is nonformulary Continue to hold HCTZ (5) Hx pulmonary embolism: (6) History of DVT of lower extremity: Plan: Status post provoked DVT/PE about 10 years ago, Status post IVC filter Known history of MTHFR mutation Not on anticoagulation as an outpatient Saw [facility] vascular surgery 1 month ago, removal of IVC filter plan Presently, BL LE Doppler negative for DVT Per Dr. Donaldson, patient high risk for development of clot around IVC filter given age of the filter, COVID status Recommend full anticoagulation with Eliquis 5 mg p.o. twice daily Discussed with patient, no history of hemorrhage Eliquis 5 mg p.o. twice daily started on 04/04 (7) DVT prophylaxis: Plan: Eliquis 5 mg p.o. twice daily started on 04/04 Admission and Anticipated Discharge Date Admission Date: March 20, 2022 Subjective Pt was seen and examined for SOB Sitting in chair with no acute distress She said that she continues to cough Currently she continues to require 4L NC Spoke to her granddaughter over the phone in detail and answered all the questions Denies any chest pain, palpitation, dizziness and SOB Review of Systems Review of Systems: All systems reviewed & are unremarkable except as noted in Subjective Physical Exam Physical Exam: General- No acute distress Head- atraumatic Eyes- PERRL, EOMI, ENT- oropharynx clear Neck- supple, no JVD Lungs- diminished BS Heart- regular rhythm; no murmur Abdomen- normal bowel sounds, soft, nontender Extremities- no calf tenderness Neuro- alert, oriented x 3; PERRL, EOMI; no facial palsy; no dysarthria Skin- warm & dry Results & Data Results & Data ([facility]) Vital Signs (Past 12 Hours) Vital Signs Temp Pulse Pulse Resp BP Pulse Ox O2 Del Method 04/13/22 19:31 36.4 C L 94 H 20 136/81 90 Room Air 04/13/22 19:28 Nasal Cannula 04/13/22 16:00 90 04/13/22 15:34 36.4 C L 88 20 139/69 94 04/13/22 14:54 94 Nasal Cannula 04/13/22 11:20 89 20 96 Nasal Cannula 04/13/22 11:00 37.0 C 83 20 109/74 96 O2 Flow Rate 04/13/22 19:31 04/13/22 19:28 4 04/13/22 16:00 04/13/22 15:34 4 04/13/22 14:54 4 04/13/22 11:20 4 04/13/22 11:00
[2022-04-14] MEDS: BENZOCAINE/MENTHOL 18 LOZ/1 BOX MT SCH ×3 (03:23→11:16)
[2022-04-14] MEDS: guaiFENesin/DEXTROM SYRUP 100MG/10MG 5ML UDC PO PRN ×2 (04:52→11:16)
[2022-04-14] MEDS: CLOTRIMAZOLE 10 MG TROCHE BUCCAL SCH ×2 (06:06→11:16)
[2022-04-14] MEDS: FLUCONAZOLE 100 MG TAB PO SCH (09:28)
[2022-04-14] MEDS: FOLIC ACID 1 MG TAB PO SCH (09:28)
[2022-04-14] MEDS: DULoxetine HCL 60 MG CAP PO SCH (09:29)
[2022-04-14] MEDS: METOPROLOL SUCC 25MG EXT REL TAB PO SCH (09:29)
[2022-04-14] MEDS: APIXABAN 5 MG TABLET PO SCH (09:29)
[2022-04-14] MEDS: ADVANCED PROBIOTIC 1250 MG CAPSULE PO SCH (09:29)
[2022-04-14] MEDS: GABAPENTIN 800 MG TAB PO SCH ×2 (09:30→13:22)
[2022-04-14] MEDS: lisinopril 2.5 MG TAB PO SCH (09:30)
[2022-04-14] MEDS: ATORVASTATIN 20 MG TAB PO SCH (09:31)
[2022-04-14] MEDS: FUROSEMIDE 20 MG TAB PO SCH (09:31)
[2022-04-14] MEDS: PANTOprazole 40 MG TAB PO SCH (09:31)
[2022-04-14] MEDS: DICLOFENAC SOD 1% GEL 100 GM TUBE EXT SCH (09:32)
--- NOTE | 2022-04-14 13:55 | Discharge Summary ---
Date of Service April 14, 2022 Admission HPI Per Admitting Provider History obtained from patient and records. Medical history significant for hypertension, hyperlipidemia, PE status post IVC filter placement status post anticoagulation, NAFLD, anxiety/mood disorder, past tobacco abuse. Last week, patient noted junky cough symptoms with shortness of breath. Outpatient COVID-19 test was positive. Patient completed COVID-19 vaccination. Admits to sick contacts. Urgent care center prescribed doxycycline and prednisone course to patient. Symptoms significantly improved. Junky cough symptoms the last few days without chest pain. Some shortness of breath. No fever, no chills. Admits to coughing with meals/water intake from time to time if not careful. Some nausea, no vomiting symptoms. Patient consulted ER for worsening symptoms. Ceftriaxone administered at the ER. 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 Admission Exam Per Admitting Provider GENERAL: Comfortable, anxious, pleasant, morbidly obese, no respiratory distress SKIN: Normal color, warm HEENT: Bespectacled, [place] palpebral conjunctivae, no ptosis, dry buccal mucosa NECK : Supple, short neck, no tenderness CHEST : Decreased breath sounds, occasional expiratory wheezes, no tenderness HEART : RRR, no obvious murmurs ABDOMEN: Some distention, nontender EXTREMITIES : Minimal LE swelling, no LE tenderness, no other conspicuous deformities noted NEUROLOGIC : Coherent, no facial asymmetry, no other gross focality Principal Diagnosis COVID-19: Bilateral pneumonia: Oral candidiasis: Hypertension: Hx pulmonary embolism: History of DVT of lower extremity: Discharge Exam General- No acute distress Head- atraumatic Eyes- PERRL, EOMI, ENT- oropharynx clear Neck- supple, no JVD Lungs- diminished BS Heart- regular rhythm; no murmur Abdomen- normal bowel sounds, soft, nontender Extremities- no calf tenderness Neuro- alert, oriented x 3; PERRL, EOMI; no facial palsy; no dysarthria Skin- warm & dry Discharge Data Allergies Allergy/AdvReac Type Severity Reaction Status Date / Time naproxen Allergy Severe SOB, HIVES Verified 03/20/22 20:11 WITH ALEVE ibuprofen Allergy Mild HIVES Verified 03/20/22 20:11 morphine Allergy Mild itching Verified 03/20/22 20:11 levofloxacin Allergy Unknown Unknown Verified 03/20/22 20:11 Penicillins Allergy Unknown occured as Verified 03/20/22 20:11 a child, severe itching prochlorperazine Allergy Unknown "eyes Verified 03/20/22 20:11 rolled back in head", muscle twitching sulfamethoxazole Allergy Unknown Unknown Verified 03/20/22 20:11 [From Bactrim] trimethoprim [From Bactrim] Allergy Unknown Unknown Verified 03/20/22 20:11 latex Allergy blisters Verified 03/20/22 20:11 nitrofurantoin AdvReac Intermediate Nausea/vomi Verified 03/20/22 20:11 ting Consultations 03/20/22 18:44 ED Decision to Admit Stat 03/27/22 09:49 Consult Pulmonology Routine Ordered Studies 03/21/22 13:30 CT chest diagnostic wo con Urgent 03/21/22 13:59 US venous doppler LE BI Urgent Laboratory Results WBC 7.61 K/ul (4.8-10.8) 04/10/22 06:20 RBC 4.03 M/uL (3.93-5.22) 04/10/22 06:20 Hgb 13.4 g/dl (12.0-16.0) 04/10/22 06:20 Hct 39.0 % (34.1-44.9) 04/10/22 06:20 MCV 96.8 fL (80.0-100.0) 04/10/22 06:20 MCH 33.3 pg (25.0-34.0) 04/10/22 06:20 MCHC 34.4 g/dL (32.0-36.0) 04/10/22 06:20 RDW Std Deviation 50.0 fL (36.4-46.3) H 04/10/22 06:20 RDW Coeff of [place] 13.9 % (11.5-14.5) 04/10/22 06:20 Plt Count 199 K/uL (130-400) 04/10/22 06:20 MPV 9.5 fL (9.4-12.3) 04/10/22 06:20 Immature Gran % (Auto) 3.9 % 04/10/22 06:20 Neut % (Auto) 66.5 % 04/10/22 06:20 Lymph % (Auto) 13.5 % 04/10/22 06:20 [place] % (Auto) 10.0 % 04/10/22 06:20 Eos % (Auto) 5.4 % 04/10/22 06:20 Baso % (Auto) 0.7 % 04/10/22 06:20 Neut # (Auto) 5.06 K/uL (1.4-6.5) 04/10/22 06:20 Lymph # (Auto) 1.03 K/uL (1.2-3.4) L 04/10/22 06:20 [place] # (Auto) 0.76 K/uL (0.24-0.82) 04/10/22 06:20 Eos # (Auto) 0.41 K/uL (0-0.50) 04/10/22 06:20 Baso # (Auto) 0.05 K/uL (0-0.2) 04/10/22 06:20 Immature Gran # (Auto) 0.30 K/uL (0.00-0.02) H 04/10/22 06:20 PT 10.6 Seconds (9.0-12.0) 03/20/22 16:48 INR 1.0 (0.9-1.1) 03/20/22 16:48 APTT 25.6 Seconds (21.0-31.0) 03/20/22 16:48 PTT Ratio 0.9 03/20/22 16:48 ABG pH 7.54 (7.35-7.45) H* 03/27/22 10:52 ABG pCO2 30 mmHg (35-46) L 03/27/22 10:52 ABG pO2 53 mmHg (80-95) L 03/27/22 10:52 ABG HCO3 26 mmol/L (19-24) H 03/27/22 10:52 ABG O2 Saturation 87.7 % (90-95) L 03/27/22 10:52 ABG Base Excess 3.8 mEq/L (-9-1.8) H 03/27/22 10:52 [place] Test Pos (Pos) 03/27/22 10:52 Oxygen Given 15 L 03/27/22 10:52 Sodium 137 mmol/L (136-145) 04/13/22 05:58 Potassium 3.8 mmol/L (3.5-5.1) 04/13/22 05:58 Chloride 100 mmol/L (98-107) 04/13/22 05:58 Carbon Dioxide 29 mmol/L (21-32) 04/13/22 05:58 Anion Gap 8 (3-11) 04/13/22 05:58 BUN 19 mg/dl (6-23) 04/13/22 05:58 Creatinine 0.57 mg/dl (0.6-1.2) L 04/13/22 05:58 Est Cr Clr Drug Dosing 77.7 ml/min 04/13/22 05:58 Est GFR ( Amer) 103.6 ml/min 04/13/22 05:58 Est GFR (Non-Af Amer) 89.4 ml/min 04/13/22 05:58 BUN/Creatinine Ratio 33.3 (10-20) H 04/13/22 05:58 Glucose 134 mg/dl (70-99(Fasting)) H 04/13/22 05:58 Calcium 9.2 mg/dl (8.5-10.1) 04/13/22 05:58 Phosphorus 3.0 mg/dl (2.5-4.9) 03/29/22 05:57 Magnesium 2.3 mg/dl (1.7-2.4) 04/05/22 07:00 Total Bilirubin 0.4 mg/dl (0.2-1.0) 03/20/22 16:48 AST 47 U/L (13-39) H 03/20/22 16:48 ALT 70 U/L (7-52) H 03/20/22 16:48 Alkaline Phosphatase 68 U/L (34-104) 03/20/22 16:48 Troponin I High Sens 4.7 pg/ml (0-14) 03/20/22 16:48 C-Reactive Protein 2.98 mg/dl (0-0.5) H 03/31/22 05:18 B-Natriuretic Peptide 25 pg/ml (0-100) 04/03/22 13:50 Total Protein 6.7 gm/dl (6.0-8.3) 03/20/22 16:48 Albumin 4.1 gm/dl (3.4-5.0) 03/20/22 16:48 Globulin 2.6 gm/dl (2.5-4.0) 03/20/22 16:48 Albumin/Globulin Ratio 1.6 (0.9-2) 03/20/22 16:48 Procalcitonin < 0.05 ng/ml (0-0.5) 04/03/22 13:50 Urine Color Yellow 03/25/22 17:50 Urine Appearance Clear (Clear) 03/25/22 17:50 Urine pH 7.5 (4.5-7.5) 03/25/22 17:50 Ur Specific [place] 1.006 (1.000-1.030) 03/25/22 17:50 Urine Protein Negative (Negative) 03/25/22 17:50 Urine Glucose (UA) Negative (Negative) 03/25/22 17:50 Urine Ketones Negative (Negative) 03/25/22 17:50 Urine Blood Negative (Negative) 03/25/22 17:50 Urine Nitrite Negative (Negative) 03/25/22 17:50 Urine Bilirubin Negative (Negative) 03/25/22 17:50 Urine Urobilinogen Negative (Negative) 03/25/22 17:50 Ur Leukocyte Esterase Negative (Negative) 03/25/22 17:50 SARS-CoV-2 (PCR) POSITIVE (Negative) A* 03/20/22 17:05 Hepatitis C Ab (EIA) NON-REACTIVE (NON-REACTIVE) 03/21/22 06:09 Hep C Ab Signal/Cutoff 0.04 (<1.00) 03/21/22 06:09 Influenza Type A (PCR) Negative (Neg) 03/20/22 17:05 Influenza Type B (PCR) Negative (Neg) 03/20/22 17:05 RSV (RT-PCR) Negative (Neg) 03/20/22 17:[address] 03/21/22 13:30 CT SCAN OF THE CHEST WITHOUT IV CONTRAST CLINICAL HISTORY: Pneumonia. Covid. COMPARISON STUDY: Chest x-ray dated 03/20/2022. Chest CT dated 12/09/2014. TECHNIQUE: CT scan of the thorax was performed from the thoracic inlet to the upper abdomen. Images are reviewed in the axial, sagittal, and coronal planes. IV contrast was not administered for this examination as per the referring clinician. A dose lowering technique was utilized adhering to the principles of ALARA. CT DOSE: 630.72 mGy.cm FINDINGS: Thyroid: Imaged portions of the thyroid gland are normal in size and attenuation. Thoracic aorta: There is atherosclerotic calcification of the thoracic aorta, which is normal in caliber and demonstrates variant 3-vessel arch anatomy. There is a bovine arch, and the left vertebral artery arises directly from the thoracic aorta. Heart: The heart is normal in size and without pericardial effusion. There are calcifications of the coronary arteries and mitral annulus. Lungs and pleural spaces: Evaluation of the lung parenchyma is significantly degraded by motion artifact. Multifocal groundglass consolidation is seen throughout both lungs with a subpleural and lower lobe predominance. There is no pleural effusion. The trachea and central airways are clear. Mediastinum: There is no mediastinal lymphadenopathy. Glory: Not well assessed without IV contrast. Axillae: There is no axillary lymphadenopathy. Upper abdomen: A small hiatal hernia is noted. There is hepatic steatosis. The gallbladder surgically absent. Skeletal structures: The skeletal structures are osteopenic. Spondylotic change is seen throughout the thoracic spine and arthritic change is noted in the shoulders. No lytic or blastic bony lesions are seen. IMPRESSION: 1. Multifocal groundglass consolidation is seen throughout both lungs as d etailed above. This is consistent with reported history of a viral pneumonia. Radiographic follow-up resolution is recommended. 2. No pleural effusion is identified. 3. Hepatic steatosis. 4. Additional findings as above. ACT 112: Negative or not required by law. Electronically signed by: Ariel Bolaños M.D. 03/21/2022 4:14 PM Venous Doppler Study 03/21/22 13:59 BILATERAL LOWER EXTREMITY VENOUS DOPPLER HISTORY: Acute pain of the right lower extremity leg pain, r/o DVT COMPARISON STUDY: 12/09/2014. FINDINGS: There is normal compressibility, flow, and augmentation within the bilateral lower extremity deep venous systems. Mild stranding within the left popliteal vein may represent a chronic nonocclusive thrombus, unchanged from 2015. IMPRESSION: No acute DVT within the right or left lower extremity. ACT 112: Negative or not required by law. Electronically signed by: Ethan Celeste M.D. 03/21/2022 9:06 PM Chest X-Ray 04/06/22 07:26 XR chest 1V portable HISTORY: Cough. follow up on pulmonary infiltrates COMPARISON: Chest 04/03/2022. FINDINGS: No pneumothorax. No pleural effusions. There are low lung volumes. Multifocal bilateral airspace opacities persist. This is most pronounced within the left lower lobe. The heart remains normal in size. No evidence for pulmonary edema. Lumbar spinal fusion hardware is partially visualized. IMPRESSION: No significant change in the multifocal bilateral airspace opacities suggestive of a viral pneumonia. ACT 112: Negative or not required by law. Electronically signed by: Mahad Cuellar M.D. 04/06/2022 10:16 AM Hospital Course (1) COVID-19: Patient is a 77-year-old female with PMH HTN, HLD, PE/DVT s/p IVC filter, NAFLD, anxiety, who presented to the ED for evaluation of cough and shortness of breath. She was tested for COVID-19 infection as an outpatient on 03/15. She was on doxycycline and prednisone which she received from urgent clinic. She presented on 03/20 with worsening shortness of breath. She was placed on high flow nasal cannula along with high-dose of steroids for COVID-19 pneumonia. She was also given Lasix intermittently for possible volume overload. Her oxygen was weaned off from high flow nasal cannula to nasal cannula on 04/04. She has completed a course of doxycycline and levaquin. She also completed course of prolonged steroids on 04/05. Plan; Continue to try to wean off oxygen to maintain saturation above 92%. - On Lasix 20mg once daily. Status post Decadron on 04/05. Status post course of doxycycline and levaquin - She will need follow-up CT scan and pulmonary function test in 3 to 4 months depending on clinical course as per pulmonology. Isolation removed on 04/09 as per recommendation by infectious disease control. - Continue incetive spirometry and flutter valve - Will continue lasix on discharge for now for possible volume overload on admission - Monitor BMP while on Lasix (2) Bilateral pneumonia: Possible superimposed bacterial pneumonia Speech eval completed --no overt signs or symptoms of aspiration or dysphagia. Patient educated on aspiration and GERD precautions. [employer] recommending regular diet with thin liquids. We will get easy to chew diet (3) Oral candidiasis: Was on prolonged course of steroids Had trial of nystatin and clotrimazole. Started on fluconazole 200 mg loading dose followed by 100 mg once a day from 04/07. QTC reviewed; 445. Continues to have sore throat; increased the dose to 200mg once a day since 04/09. Improvement noted in patient symptoms. Plan to give it for total of 7 days. Clinically improved (4) Hypertension: BP controlled, continue metoprolol Benazepril and HCTZ changed to Lisinopril and Lasix Continue monitor BP (5) Hx pulmonary embolism: (6) History of DVT of lower extremity: Status post provoked DVT/PE about 10 years ago, Status post IVC filter Known history of MTHFR mutation Not on anticoagulation as an outpatient Saw [facility] vascular surgery 1 month ago, removal of IVC filter plan Presently, BL LE Doppler negative for DVT Per Dr. Donaldson, patient high risk for development of clot around IVC filter given age of the filter, COVID status Recommend full anticoagulation with Eliquis 5 mg p.o. twice daily Discussed with patient, no history of hemorrhage Eliquis 5 mg p.o. twice daily started on 04/04 (7) DVT prophylaxis: Eliquis 5 mg p.o. twice daily started on 04/04 Total Time Total Time Spent Total Time Spent (In Minutes): 45 minutes Discharge Plan Discharge Items Patient Disposition: Transfer Long-Term Fac Reason For Visit: PNEUMONIA, COVID Discharge Diagnosis: COVID-19: Bilateral pneumonia: Oral candidiasis: Hypertension: Hx pulmonary embolism: History of DVT of lower extremity: Condition on Discharge: Good Activity: Resume your previous activity Non-emergency contact: Primary Care Provider and Topographical Surveyor Call non-emergency contact if: you have any medication questions and your symptoms worsen Follow-up/Referrals: Roxi Bueno, [Primary Care Provider] - (Date & Time 03/29/2022 11:00 AM Provider Jasen Roy PA-C Department Family [facility] [place] ) Diet: Heart Healthy Diet Texture: Easy to Chew Addtl Attending Provider Instructions: Follow up with your primary care provider once discharge from rehab Follow up with pulmonology (please call to schedule for the appointment) Continue Oxygen supplement with 4L nasal cannula, then titrate during activity to keep oxygen level above 88 Continue physical and occupation therapy Fall precaution Check CT chest in 3 to 4 months for resolution of the ground glass consolidation You will need to get outpatient pulmonary function test Continue incentive spirometry and flutter valve Continue Eliquis for now due to high risk for blood clot round the IVC filter Follow up with vascular surgery outpatient to arrange for the IVC filter. ( your provider will reassess about to continue the eliquis once IVC filter removes) Seek medical attention if your shortness of breath worsening Continue aspiration precaution ( continue easy to chew diet with thin liquid Medication Instructions:Eliquis Your condition is typically treated with an anticoagulant. Anticoagulants will thin your blood to help prevent new clots. You should take her medication exactly as directed. Never skip a dose. Never take a double dose. If you miss a dose, take it as soon as you remember. Avoid NSAIDs (Motrin, Aleve, Naproxen, Ibuprofen, Advil, Meloxicam,..) due to risks of bleeding Call your Primary Care doctor if you experience any of the following: Swelling or Pain in your leg Sudden, continuous pain deep in a muscle Pain that worsens when you are active or when you stand still for a long time Chest Pain Sudden Shortness of Breath Rapid or pounding heart beat Fainting Dizziness Cough with blood or bloody sputum Sweating more than normal Bruises Heavy or uncontrolled bleeding Blood in your urine, stool or vomit Black or tarry stools Pending Studies at Discharge: No Stand-Alone Forms: My [facility] Skilled Items Patient informed of condition?: Yes DNR: No Discharge Level of Care: Skilled Communicable Disease: No Discharge Prognosis: Stable Lines: None Urinary Catheter: No Medications and DC Order Prescriptions: New fluconazole 100 mg Tablet 200 mg PO QAM 3 Days Qty: 6 0RF Eliquis 5 mg Tablet 5 mg PO BID Qty: 60 0RF ipratropium bromide 0.02 % Solution 0.5 mg inhalation Q6H Qty: 150 0RF levalbuterol HCl 1.25 mg/0.5 mL Solution For Nebulization 1.25 mg inhalation QIDR Qty: 30 0RF lisinopril 2.5 mg Tablet 2.5 mg PO QAM Qty: 30 0RF furosemide 20 mg Tablet 20 mg PO QAM Qty: 60 0RF Sore Throat (benzocaine-menth) 6-10 mg Lozenge 1 sheron MT Q4H Qty: 18 0RF dextromethorphan-guaifenesin 10-100 mg/5 mL Syrup 5 ml PO Q6H Qty: 237 0RF Continued amoxicillin 500 mg Capsule 2,000 mg PO DIRECTED Rx Instructions: TAKE 1 HOUR BEFORE DENTAL APT. latanoprost 0.005 % drops 0 drp ophthalmic (eye) DIRECTED betamethasone valerate 0.1 % Ointment 1 applic TOPICAL BID PRN (Reason: FLARE UPS) atorvastatin 20 mg tablet 20 mg PO QAM omeprazole 40 mg capsule,delayed release(DR/EC) 40 mg PO QAM gabapentin 800 mg tablet 800 mg PO TID Rx Instructions: take 1 tab in am, noon & hs phenazopyridine 95 mg Tablet 95 mg PO DIRECTED PRN (Reason: .URINARY PROBLEMS) clotrimazole-betamethasone 1-0.05 % cream 1 applic TOPICAL DIRECTED Rx Instructions: FOR 4 WEEKS, ORDERED 03/01/22 folic acid 1 mg Tablet 1 mg PO DAILY metoprolol succinate 25 mg tablet extended release 24 hr 25 mg PO QAM nystatin [Nystop] 100,000 unit/gram powder 1 applic TOPICAL TID estradiol 0.01 % (0.1 mg/gram) cream 1 applic VAGINAL 2XWK bisacodyl 5 mg Tablet 10 mg PO DAILY PRN (Reason: Constipation) Rx Instructions: DO NOT USE OVER 1 WEEK nystatin-triamcinolone Cream 1 applic TOPICAL BID PRN (Reason: FLARE UPS) duloxetine 60 mg capsule,delayed release(DR/EC) 60 mg PO DAILY diclofenac sodium 1 % gel 1 ea TOPICAL BID Rx Instructions: APPLY TO AFFECTED AREA OF BACK & RIGHT HIP Discontinued doxycycline hyclate 100 mg tablet 100 mg PO BID Rx Instructions: 7 day regimen, filled 03/14/22 benazepril-hydrochlorothiazide 10-12.5 mg tablet 1 tab PO QAM Discharge Orders: Discharge Order (Routine); Ordered 04/14/22 Ordered By: Celio Goode Admission Data Admit Date/Time: 03/20/22 20:07 Attending Provider: Celio Goode Admit Provider: Sorin Sethi Primary Care Provider: Roxi Bueno Other Providers: Conchita Ayala ; Luca Mcclelland ; Sorin Sethi ; Edward Robledo ; Jacqueline Hinds ; [facility] ; Jesus Eduardo Other Interventions: Discharge Summary Assessment (RN) Last Done: 04/14/22 14:48
== END 2022-04-14 14:31 | DRG 177 ==
LOC: ED 14:26 → 3N 20:07 → SUATTDRO 20:07 → 3N 03-21 00:09 → 2E 03-27 18:25

== ENCOUNTER 2024-03-05 17:54 | Inpatient (IN) ==
[2024-03-05 19:00] LABS: Influenza A virus by PCR Negative (Neg); Influenza B virus by PCR Negative (Neg); RSV by PCR Negative (Neg); SARS CoV2 RNA(COVID-19) Ceph POSITIVE (Negative)
--- NOTE | 2024-03-05 20:23 | Emergency Department Note ---
Impression & Plan Chills, Cough, COVID-19, COPD (chronic obstructive pulmonary disease), Generalized weakness ED Provider Note ED Provider Note NAME: SHER MORLEY AGE:78 SEX: Female : 1945 ARRIVES VIA: Private vehicle INFORMANT: Patient ED PROVIDER(s): Janey Hathaway DO CHIEF COMPLAINT: URI symptoms, recent COVID exposure HPI: This is a 78-year-old female who presents emergency room due to concern for recent URI symptoms which began on Sunday. She states she began to notice nasal congestion, rhinorrhea, cough, and then yesterday developed body aches and chills. Patient states she was with a friend the end of last week who seemed well at the time however the friend contacted her over the weekend stating she was positive for COVID. Patient states she did previously have COVID 2 years ago and was hospitalized for 28 days. She states during that time she developed secondary complications including DVT and PE. She states she is still anticoagulated and takes a medication daily. She states during that time she also received a Allen filter. She states she does have underlying COPD/emphysema. She does use inhalers at home, and over the last 2 days was using her rescue inhaler more frequently as she felt more short of breath. She states she wears CPAP at night however was so congested could not wear it and did not get much sleep last night. She states she did not have an appetite today but denies any overt nausea or vomiting, abdominal pain, or diarrhea. PAST MEDICAL HISTORY:See Below PAST SURGICAL HISTORY:See Below FAMILY HISTORY:See Below SOCIAL HISTORY:See Below HOME MEDICATIONS:See Below ALLERGIES:See Below VITALS:See Below PHYSICAL EXAMINATION: GENERAL: alert, well appearing, well nourished, no distress, non-toxic EYE EXAM: normal conjunctiva, PERRL and EOM's grossly intact OROPHARYNX: no exudate, no erythema, lips, buccal mucosa, and tongue normal and mucous membranes are dry NECK: supple, no nuchal rigidity, no adenopathy, non-tender LUNGS: Clear to auscultation. Normal chest wall mechanics, no w/r/r HEART: no murmurs, S1 normal and S2 normal ABDOMEN: abdomen soft, non-tender, normo-active bowel sounds, no masses, no rebound or guarding. SKIN: no rashes, petechiae, orbruising UPPER EXTREMITIES: upper extremities are grossly normal. FROM, nml pulses b/l. LOWER EXTREMITIES: No pitting edema. FROM, nml pulses b/l. NEURO EXAM: Normal sensorium, cranial nerves II-XII grossly intact, normal speech, no facial droop,nogross weakness of arms, no gross weakness of legs. Gross sensation intact. No ataxia. Vital Signs: reviewed and remarkable Differential Diagnosis: Viral syndrome, COPD exacerbation, pneumonia, CHF, pleural effusion, pericarditis/myocarditis, dehydration, electrolyte abnormality, DERICK, ACS, as well as others were considered MEDICAL DECISION MAKING: This is a 78-year-old female presents to the emergency department due to concern for myalgias, chills, cough, decreased appetite, shortness of breath. Labs drawn and sent, IV established, EKG and chest ray performed bedside interpreted by me and patient monitored on telemetry. Nasal swab obtained and sent prior to my evaluation also and was positive for COVID. Patient did recently have a positive sick contact. Patient concerned given prior COVID resulted in 28-day hospital admission with several complications including PEs. Patient is still anticoagulated and denied missing or skipping her doses. Patient given IV fluids and IV Tylenol with some improvement, she was also given a DuoNeb treatment, IV Decadron, and IV magnesium. Patient's other labs reassuring, chest x-ray without any acute focal infiltrate, effusion, or pulmonary edema. Due to concern for weakness, increased shortness of breath in the setting of COVID and underlying COPD, and patient living alone, we discussed additional inpatient monitoring and respiratory treatments. Patient in agreement with this plan as she is concerned about being home by herself feeling this weekend unwell. Consultation(s): 0015: Discussed with Dr. De Anda, [facility] hospitalist team, for additional evaluation and mgmt. ER Treatment Provided: See below Diagnostics Interpreted By Me: -ECG: Normal sinus at 83, leftward axis, normal intervals, no acute ST/T wave changes -Cardiac Monitoring: An order was placed for continuous cardiac monitoring. The monitor shows a rate of 88 with normal sinus rhythm. -Laboratory studies: As stated above and show below. -Imaging studies: X-ray Chest: A single view study of the chest was reviewed and was negative for cardiomegaly, focal infiltrate, effusion, pulmonary edema, or wide mediastinum. Triage Nursing Note Reviewed Prior/Outside Records Reviewed -prior discharge summary reviewed Past Med/Surg History Problem List (Updated 03/06/24 @ 02:14 by Janey Hathaway DO) Generalized weakness (Acute) COPD (chronic obstructive pulmonary disease) (Acute) COVID-19 (Acute) Cough (Acute) Chills (Acute) Pulmonary fibrosis Glossitis Thrush of mouth and esophagus Vocal cord nodules Restrictive lung disease Hoarseness of voice Obesity Ex-smoker Allergic rhinitis with postnasal drip Abnormal chest CT Exertional shortness of breath Accidental fall (Acute) Fall (Acute) Encounter for pre-operative examination Osteoarthritis of right knee Status post total right knee replacement Encounter for pre-operative examination Iron deficiency anemia Urinary tract infection (Acute 08/29/12) Recurrent UTI (Acute) Nephrolithiasis (Acute) Atrophic vaginitis Medical History Oral candidiasis Acute respiratory failure with hypoxia Pneumonia due to COVID-19 virus Bronchitis COVID-19 Sleep apnea "mild" no device History of skin cancer removed Diverticular disease Anemia Hypertension Obesity Hx pulmonary embolism 2013; AC X ONE MONTHS History of kidney stones History of DVT of lower extremity 2013, WAS ON BLOOD THINNERS X ONE MONTH; unk etiology Hiatal hernia GERD (gastroesophageal reflux disease) CONTROLLED Osteoarthritis Surgical History History of left cataract surgery History of lumpectomy x 2 (benign) History of appendectomy History of tonsillectomy History of nasal surgery History of colonoscopy X 2 History of esophagogastroduodenoscopy (EGD) X 2 History of total knee replacement RIGHT Allen filter in place PLACED 2012 History of lumbar spinal fusion History of hysterectomy History of cholecystectomy Family History Father Hypertension Other No family history of adverse response to anesthesia Social History Smoking Status: Never smoker Cigarettes Per Day: HX OF 1 PACK PER WEEK, QUIT 25 YEARS AGO; Second Hand Exposure: No; Do You Dip or Chew Tobacco: No; Hx Alcohol Use: Yes Alcohol type: beer Hx Substance Use: No Preferred Language: Irish Communication Ability: Effective Repair Department Supervisor Required: No Beliefs That Will Affect Care: Muslim Current Living Situation: Alone Feels Safe at Home: Yes Assistive Devices: Cane Allergies Allergies Allergy/AdvReac Type Severity Reaction Status Date / Time naproxen Allergy Severe SOB, HIVES Verified 03/05/24 23:42 WITH ALEVE ibuprofen Allergy Mild HIVES Verified 03/05/24 23:42 morphine Allergy Mild itching Verified 03/05/24 23:42 levofloxacin Allergy Unknown Unknown Verified 03/05/24 23:42 Penicillins Allergy Unknown occured as Verified 03/05/24 23:42 a child, severe itching prochlorperazine Allergy Unknown "eyes Verified 03/05/24 23:42 rolled back in head", muscle twitching latex Allergy blisters Verified 03/05/24 23:42 nitrofurantoin AdvReac Intermediate Nausea/vomi Verified 03/05/24 23:42 ting Home Meds Home Medications Medication Instructions Recorded Confirmed amoxicillin 500 mg capsule 2,000 mg PO DIRECTED 03/20/22 03/05/24 betamethasone valerate 0.1 % 1 applic topical BID PRN FLARE UPS 03/20/22 03/06/24 topical ointment diclofenac sodium 1 % topical gel 1 ea topical BID PRN Pain 03/20/22 03/05/24 duloxetine 60 mg capsule,delayed 60 mg PO DAILY 03/20/22 03/05/24 release estradiol 0.01% (0.1 mg/gram) 1 applic vaginal Q2D 03/20/22 03/05/24 vaginal cream folic acid 1 mg tablet 1 mg PO DAILY 03/20/22 03/05/24 metoprolol succinate 25 mg 25 mg PO QAM 03/20/22 03/05/24 tablet,extended release 24 hr nystatin 100,000 unit/gram topical 1 applic topical BID 03/20/22 03/05/24 powder (Nystop) rosuvastatin 5 mg tablet 5 mg PO DAILY 07/03/22 03/06/24 latanoprost 0.005 % eye drops 1 drp OPB QPM 01/25/23 03/05/24 omeprazole 40 mg capsule,delayed 40 mg PO DAILYBB 01/25/23 03/06/24 release alendronate 70 mg tablet (Fosamax) 70 mg PO WK 08/23/23 03/05/24 semaglutide 2 mg/dose (8 mg/3 mL) 2 mg subcut .weekly 08/23/23 03/06/24 subcutaneous pen injector (Ozempic) gabapentin 400 mg capsule 400 mg PO TID 03/05/24 03/05/24 nystatin-triamcinolone 100,000 1 applic topical BID PRN Skin 03/06/24 03/06/24 unit/g-0.1 % topical cream Irritation Previous Rx's Medication Instructions Recorded apixaban 5 mg tablet (Eliquis) 5 mg PO BID #60 tabs 04/14/22 lisinopril 2.5 mg tablet 2.5 mg PO QAM #30 tabs 04/14/22 nebulizer accessories #1 ea 05/01/22 albuterol sulfate 90 mcg/actuation 2 puff inhalation Q6H PRN 08/28/23 aerosol inhaler Shortness Of Breath Or Wheezing #3 Inhalers umeclidinium 62.5 mcg-vilanterol 1 inh inhalation DAILY #180 ea 08/28/23 25 mcg/actuation powdr for inhalation (Anoro Ellipta) Results & Data (ED) Vital Signs Vital Signs - 24 hr 03/05/24 17:57 03/05/24 19:52 03/05/24 22:00 Temperature 36.7 C Temperature Source Oral Pulse Rate 89 Pulse Rate [Finger] 87 85 Pulse Rate from SpO2 Sensor Respiratory Rate 17 20 20 Respiratory Rate [Exercises] Respiratory Effort / Characteristics Non-Labored Spontaneous Non-Labored Spontaneous Non-Labored Respiratory Depth Normal Normal Normal Blood Pressure 145/83 H Blood Pressure [Right Arm] 161/96 H 165/93 H Blood Pressure Mean 103 Blood Pressure Mean [Right Arm] 117 117 Blood Pressure Position Sitting Pulse Oximetry 96 97 93 Pulse Oximetry [Exercises] Oxygen Delivery Method Room Air Room Air Room Air Sepsis Recent Fever Within 48 Hours No Sepsis New/Unexplained Change in Mental Status No Sepsis Action Taken by Nursing No Action Required 03/05/24 22:14 03/05/24 22:14 03/05/24 22:14 Temperature Temperature Source Pulse Rate Pulse Rate [Finger] Pulse Rate from SpO2 Sensor Respiratory Rate Respiratory Rate [Exercises] Respiratory Effort / Characteristics Respiratory Depth Blood Pressure 165/93 H 165/93 H 165/93 H Blood Pressure [Right Arm] Blood Pressure Mean 128 128 128 Blood Pressure Mean [Right Arm] Blood Pressure Position Pulse Oximetry Pulse Oximetry [Exercises] Oxygen Delivery Method Sepsis Recent Fever Within 48 Hours Sepsis New/Unexplained Change in Mental Status Sepsis Action Taken by Nursing 03/05/24 22:15 03/05/24 22:39 03/05/24 23:14 Temperature Temperature Source Pulse Rate 87 90 Pulse Rate [Finger] Pulse Rate from SpO2 Sensor 87 90 Respiratory Rate 8 L 21 Respiratory Rate [Exercises] 24 Respiratory Effort / Characteristics Respiratory Depth Blood Pressure Blood Pressure [Right Arm] Blood Pressure Mean Blood Pressure Mean [Right Arm] Blood Pressure Position Pulse Oximetry 95 92 Pulse Oximetry [Exercises] 93 Oxygen Delivery Method Room Air Sepsis Recent Fever Within 48 Hours Sepsis New/Unexplained Change in Mental Status Sepsis Action Taken by Nursing 03/05/24 23:53 03/05/24 23:53 03/05/24 23:53 Temperature Temperature Source Pulse Rate Pulse Rate [Finger] Pulse Rate from SpO2 Sensor Respiratory Rate Respiratory Rate [Exercises] Respiratory Effort / Characteristics Respiratory Depth Blood Pressure 182/90 H 182/90 H 182/90 H Blood Pressure [Right Arm] Blood Pressure Mean 130 130 130 Blood Pressure Mean [Right Arm] Blood Pressure Position Pulse Oximetry Pulse Oximetry [Exercises] Oxygen Delivery Method Sepsis Recent Fever Within 48 Hours Sepsis New/Unexplained Change in Mental Status Sepsis Action Taken by Nursing 03/05/24 23:54 03/06/24 00:00 03/06/24 00:01 Temperature Temperature Source Pulse Rate 89 Pulse Rate [Finger] Pulse Rate from SpO2 Sensor 90 90 Respiratory Rate 14 Respiratory Rate [Exercises] Respiratory Effort / Characteristics Respiratory Depth Blood Pressure 202/125 H Blood Pressure [Right Arm] Blood Pressure Mean 146 Blood Pressure Mean [Right Arm] Blood Pressure Position Pulse Oximetry 93 94 Pulse Oximetry [Exercises] Oxygen Delivery Method Sepsis Recent Fever Within 48 Hours Sepsis New/Unexplained Change in Mental Status Sepsis Action Taken by Nursing 03/06/24 00:03 03/06/24 00:04 03/06/24 00:04 Temperature Temperature Source Pulse Rate 88 Pulse Rate [Finger] Pulse Rate from SpO2 Sensor 88 Respiratory Rate 18 Respiratory Rate [Exercises] Respiratory Effort / Characteristics Respiratory Depth Blood Pressure 176/92 H 176/92 H Blood Pressure [Right Arm] Blood Pressure Mean 127 127 Blood Pressure Mean [Right Arm] Blood Pressure Position Pulse Oximetry 94 Pulse Oximetry [Exercises] Oxygen Delivery Method Sepsis Recent Fever Within 48 Hours Sepsis New/Unexplained Change in Mental Status Sepsis Action Taken by Nursing 03/06/24 00:57 03/06/24 01:00 03/06/24 01:00 Temperature Temperature Source Pulse Rate 84 Pulse Rate [Finger] Pulse Rate from SpO2 Sensor 84 Respiratory Rate 24 Respiratory Rate [Exercises] Respiratory Effort / Characteristics Respiratory Depth Blood Pressure 150/77 H 150/77 H Blood Pressure [Right Arm] Blood Pressure Mean 117 117 Blood Pressure Mean [Right Arm] Blood Pressure Position Pulse Oximetry 93 Pulse Oximetry [Exercises] Oxygen Delivery Method Sepsis Recent Fever Within 48 Hours Sepsis New/Unexplained Change in Mental Status Sepsis Action Taken by Nursing 03/06/24 01:03 Temperature Temperature Source Pulse Rate 88 Pulse Rate [Finger] Pulse Rate from SpO2 Sensor 86 Respiratory Rate 18 Respiratory Rate [Exercises] Respiratory Effort / Characteristics Respiratory Depth Blood Pressure Blood Pressure [Right Arm] Blood Pressure Mean Blood Pressure Mean [Right Arm] Blood Pressure Position Pulse Oximetry 92 Pulse Oximetry [Exercises] Oxygen Delivery Method Sepsis Recent Fever Within 48 Hours Sepsis New/Unexplained Change in Mental Status Sepsis Action Taken by Nursing Laboratory Data 03/05/24 20:00 03/05/24 20:00 Lab Results 03/05/24 03/05/24 03/05/24 Range/Units 18:01 20:00 21:35 WBC 5.66 (4.8-10.8) K/ul RBC 4.81 (4.20-5.40) M/uL Hgb 15.1 (12.0-16.0) g/dl Hct 45.9 (37.0-47.0) % MCV 95.4 (80.0-100.0) fL MCH 31.4 (25.0-34.0) pg MCHC 32.9 (32.0-36.0) g/dL RDW Std Deviation 44.8 (36.4-46.3) fL RDW Coeff of Blayne 12.8 (11.5-14.5) % Plt Count 144 (130-400) K/uL MPV 9.5 (9.4-12.4) fL Immature Gran % (Auto) 0.5 % Neut % (Auto) 66.0 % Lymph % (Auto) 23.0 % Boyd % (Auto) 8.8 % Eos % (Auto) 1.2 % Baso % (Auto) 0.5 % Neut # (Auto) 3.73 (1.40-6.50) K/uL Lymph # (Auto) 1.30 (1.20-3.40) K/uL Boyd # (Auto) 0.50 (0.11-0.59) K/uL Eos # (Auto) 0.07 (0.00-0.50) K/uL Baso # (Auto) 0.03 (0.00-0.20) K/uL Immature Gran # (Auto) 0.03 (0.01-0.20) K/uL PT Cancelled 11.4 INR Cancelled 1.1 Sodium 136 (136-145) mmol/L Potassium 4.1 (3.5-5.1) mmol/L Chloride 99 (98-107) mmol/L Carbon Dioxide 28 (21-32) mmol/L Anion Gap 9 (3-11) BUN 17 (6-23) mg/dl Creatinine 0.61 (0.6-1.2) mg/dl Est Cr Clr Drug Dosing 66.7 ml/min Est GFR ( Amer) 100.6 ml/min Est GFR (Non-Af Amer) 86.8 ml/min BUN/Creatinine Ratio 27.9 H (10-20) Glucose 100 H (70-99(Fasting)) mg/dl Calcium 9.6 (8.6-10.3) mg/dl Magnesium 2.1 (1.7-2.4) mg/dl Total Bilirubin 0.5 (0.2-1.0) mg/dl AST 20 (13-39) U/L ALT 18 (7-52) U/L Alkaline Phosphatase 67 (34-104) U/L Troponin I High Sens 3.9 (0-14) pg/ml Total Protein 7.1 (6.0-8.3) gm/dl Albumin 4.7 (3.4-5.0) gm/dl Globulin 2.4 L (2.5-4.0) gm/dl Albumin/Globulin Ratio 2.0 (0.9-2) Lipase 44 (11-82) U/L TSH 1.378 (0.300-4.500) uIu/ml SARS-CoV-2 (PCR) POSITIVE A (Negative) Influenza Type A (PCR) Negative (Neg) Influenza Type B (PCR) Negative (Neg) RSV (RT-PCR) Negative (Neg) Administered Medications Sodium Chloride (Nss) 1,000 mls @ 125 mls/hr IV .Q8H DORY Stop: 04/04/24 23:29 Last Admin: 03/05/24 23:57 Dose: 125 mls/hr Documented By: ANGE Discontinued Medications Albuterol (Albut/Ipratrop 3mg/0.5mg Neb 3 Ml Vial) 3 ml NEB NOW STA; Protocol Stop: 03/05/24 21:03 Last Admin: 03/05/24 21:07 Dose: 3 ml Documented By: BETSY Dexamethasone Sodium Phosphate (DexamethasonePf 10 Mg/Ml Vial) 10 mg IV NOW ONE Stop: 03/05/24 21:03 Last Admin: 03/05/24 21:07 Dose: 10 mg Documented By: BETSY Sodium Chloride (Nss) 1,000 mls @ 999 mls/hr IV .Q1H1M ONE Stop: 03/05/24 21:15 Last Infusion: 03/05/24 22:16 Dose: Infused Documented By: Admin: 03/05/24 20:33 Dose: 999 mls/hr Documented By: BETSY Magnesium Sulfate/Dextrose (Magnesium Sulfate / D5w) 1 gm in 100 mls @ 100 mls/hr IV NOW STA Stop: 03/05/24 22:01 Last Infusion: 03/05/24 22:21 Dose: Infused Documented By: Admin: 03/05/24 21:07 Dose: 100 mls/hr Documented By: BETSY Acetaminophen (Ofirmev) 1,000 mg in 100 mls @ 400 mls/hr IV NOW STA Stop: 03/05/24 23:44 Last Infusion: 03/06/24 00:14 Dose: Infused Documented By: Admin: 03/05/24 23:57 Dose: 400 mls/hr Documented By: ANGE Discharge Plan Visit Data Chief Complaint: Illness Stated Complaint: CONGESTED, HEADACHE, FEVER, CHILLS, ACHY ED Provider: Janey Hathaway Discharge Problem: Chills, Cough, COVID-19, COPD (chronic obstructive pulmonary disease), Generalized weakness Forms Stand Alone Forms: [facility] [employer] Prescriptions Prescriptions: No Action (DME) nebulizer accessories Kit See Rx Instructions .Route Qty: 1 0RF Rx Instructions: As directed rosuvastatin 5 mg tablet 5 mg PO DAILY alendronate [Fosamax] 70 mg tablet 70 mg PO WK Rx Instructions: TAKE THIS MED EVERY SUNDAY Ozempic 2 mg/dose (8 mg/3 mL) pen injector 2 mg subcut .weekly Rx Instructions: TAKE THIS MED EVERY SUNDAY albuterol sulfate 90 mcg/actuation HFA aerosol inhaler 2 puff inhalation Q6H PRN (Reason: Shortness Of Breath Or Wheezing) Qty: 3 1RF Anoro Ellipta 62.5-25 mcg/actuation blister with device 1 inh inhalation DAILY Qty: 180 1RF amoxicillin 500 mg Capsule 2,000 mg PO DIRECTED Rx Instructions: TAKE 1 HOUR BEFORE DENTAL APT. betamethasone valerate 0.1 % Ointment 1 applic TOPICAL BID PRN (Reason: FLARE UPS) folic acid 1 mg Tablet 1 mg PO DAILY metoprolol succinate 25 mg tablet extended release 24 hr 25 mg PO QAM nystatin [Nystop] 100,000 unit/gram powder 1 applic TOPICAL BID estradiol 0.01 % (0.1 mg/gram) cream 1 applic VAGINAL Q2D duloxetine 60 mg capsule,delayed release(DR/EC) 60 mg PO DAILY diclofenac sodium 1 % gel 1 ea TOPICAL BID PRN (Reason: Pain) Rx Instructions: APPLY TO AFFECTED AREA OF BACK & RIGHT HIP Eliquis 5 mg Tablet 5 mg PO BID Qty: 60 0RF lisinopril 2.5 mg Tablet 2.5 mg PO QAM Qty: 30 0RF latanoprost 0.005 % drops 1 drp OPB QPM omeprazole 40 mg capsule,delayed release(DR/EC) 40 mg PO DAILYBB gabapentin 400 mg capsule 400 mg PO TID nystatin-triamcinolone 100,000-0.1 unit/g-% Cream 1 applic TOPICAL BID PRN (Reason: Skin Irritation) Rx Instructions: APPLY TO GROIN FOLDS NEEDED Referrals Referrals: Jcarlos Laureano PA-C [Primary Care Provider] -
[2024-03-05] MEDS: SODIUM CHLORIDE 0.9% 1,000 ML IV ONE (20:33)
[2024-03-05 20:39] LABS: Basophils # (auto) 0.03 K/uL (0.00-0.20); Basophils % (auto) 0.5 %; Eosinophils # (auto) 0.07 K/uL (0.00-0.50); Eosinophils % (auto) 1.2 %; Hematocrit (blood only) 45.9 % (37.0-47.0); Hemoglobin 15.1 g/dl (12.0-16.0); Immature Granulocytes # (auto) 0.03 K/uL (0.01-0.20); Immature Granulocytes % (auto) 0.5 %; Mean Corpuscular Hemoglobin 31.4 pg (25.0-34.0); Mean Corpuscular Hgb Conc 32.9 g/dL (32.0-36.0); Mean Corpuscular Volume 95.4 fL (80.0-100.0); Mean Platelet Volume 9.5 fL (9.4-12.4); Monocytes % (auto) 8.8 %; Neutrophils # (auto) 3.73 K/uL (1.40-6.50); Platelet Count 144 K/uL (130-400); RDW Coefficient of Variation 12.8 % (11.5-14.5); RDW Standard Deviation 44.8 fL (36.4-46.3); Red Blood Count 4.81 M/uL (4.20-5.40); White Blood Count 5.66 K/ul (4.8-10.8)
[2024-03-05 20:44] LABS: Albumin Level 4.7 gm/dl (3.4-5.0); BUN Creatinine Ratio 27.9 (10-20); Bilirubin,Total 0.5 mg/dl (0.2-1.0); Calcium 9.6 mg/dl (8.6-10.3); Creatinine Clr Calc Pharmacy 66.7 ml/min; Est GFR (African American) 100.6 ml/min; Est GFR (Non-African American) 86.8 ml/min; Globulin 2.4 gm/dl (2.5-4.0); Magnesium 2.1 mg/dl (1.7-2.4); Potassium 4.1 mmol/L (3.5-5.1); Total Protein 7.1 gm/dl (6.0-8.3)
[2024-03-05 20:49] LABS: Troponin I High Sensitivity 3.9 pg/ml (0-14)
[2024-03-05 20:59] LABS: Thyroid Stimulating Hormone 1.378 uIu/ml (0.300-4.500)
[2024-03-05] MEDS: ALBUT/IPRATROP 3MG/0.5MG NEB 3 ML VIAL NEB STA (21:07)
[2024-03-05] MEDS: dexAMETHasone**PF** 10 MG/ML VIAL IV ONE (21:07)
[2024-03-05] MEDS: MAGNESIUM SULFATE / D5W 1 GM/100 ML BAG IV STA (21:07)
[2024-03-05 22:19] LABS: INR 1.1 (0.9-1.1); Prothrombin Time 11.4 Seconds (9.0-12.0)
[2024-03-05] MEDS: ACETAMINOPHEN 1,000 MG/100 ML VIAL IV STA (23:57)
[2024-03-05] MEDS: SODIUM CHLORIDE 0.9% 1,000 ML IV SCH (23:57)
--- NOTE | 2024-03-06 02:42 | History & Physical Report ---
Date of Service March 06, 2024 Assessment & Plan (1) Generalized weakness: Plan: 78-year-old female with past medical history significant for hyperlipidemia, obstructive sleep apnea, history of MTHFR deficiency, history of DVT and PE in 2010 as per patient, status post IVC filter, morbid obesity, Queen, GERD, history of recurrent UTI, stress incontinence of urine, osteoarthritis, benign paroxysmal positional vertigo, primary open-angle glaucoma bilateral mild stage, generalized anxiety disorder, depression, medical marijuana use, presents with stuffy nose, shaking chills, headaches and bodyaches and weakness starting Sunday. Symptoms are progressively getting worse so came to the ER. Appetite is down today. Patient was admitted in 2021 for COVID and had a prolonged hospital course of 28 days and had a prolonged steroid course. And imaging stud ies showed postinflammatory scarring of the lungs at that time. Because of previous prolonged course with COVID patient was concerned and came to the hospital. Resting comfortably. She says she has chronic cough from previous COVID. She has chronic shortness of breath with exertion. Denies any nausea. Denies abdominal pain. No diarrhea. Micturating okay. Hemodynamics are okay currently. Generalized weakness Mostly from COVID COVID precautions Because of previous complicated COVID history and history of COPD we will do Decadron and remdesivir. Follow remdesivir labs Pulmonary consult in a.m. for further recommendations History of COPD Continue home inhalers and nebs as needed History of DVT and PE Status post IVC filter On Eliquis Obstructive sleep apnea CPAP nightly Hyperlipidemia On statin Hypertension On lisinopril and metoprolol succinate Will monitor GERD Omeprazole DVT prophylaxis On Eliquis Disposition Med/telemetry Full code History of Present Illness Chief Complaint: Illness, COVID Primary Care Provider: Jcarlos Laureano PA-C 78-year-old female with past medical history significant for hyperlipidemia, obstructive sleep apnea, history of MTHFR deficiency, history of DVT and PE in 2010 as per patient, status post IVC filter, morbid obesity, Queen, GERD, history of recurrent UTI, stress incontinence of urine, osteoarthritis, benign paroxysmal positional vertigo, primary open-angle glaucoma bilateral mild stage, generalized anxiety disorder, depression, medical marijuana use, presents with stuffy nose, shaking chills, headaches and bodyaches and weakness starting Sunday. Symptoms are progressively getting worse so came to the ER. Appetite is down today. Patient was admitted in 2021 for COVID and had a prolonged hospital course of 28 days and had a prolonged steroid course. And imaging studies showed postinflammatory scarring of the lungs at that time. Because of previous prolonged course with COVID patient was concerned and came to the hospital. Resting comfortably. She says she has chronic cough from previous COVID. She has chronic shortness of breath with exertion. Denies any nausea. Denies abdominal pain. No diarrhea. Micturating okay. Hemodynamics are okay c urrently. Past medical history. As mentioned above. Past surgical history. Right total knee arthroplasty. Colonoscopy. EGD. Excision of right breast lesion. IVC filter. Appendectomy. Tonsillectomy. Cholecystectomy. Sacroiliac joint injection. Lumbar spinal fusion surgery. Total abdominal hysterectomy with removal of tubes. Closed treatment of nasal fracture with stabilization. Family history. . Quit smoking 1989. Smokes 0.5 pack a day for 25 years. Alcohol 2 standard drinks of alcohol per week. Uses medical marijuana for sleep and pain, 2 times a week Allergies Allergy/AdvReac Type Severity Reaction Status Date / Time naproxen Allergy Severe SOB, HIVES Verified 03/05/24 23:42 WITH ALEVE ibuprofen Allergy Mild HIVES Verified 03/05/24 23:42 morphine Allergy Mild itching Verified 03/05/24 23:42 levofloxacin Allergy Unknown Unknown Verified 03/05/24 23:42 Penicillins Allergy Unknown occured as Verified 03/05/24 23:42 a child, severe itching prochlorperazine Allergy Unknown "eyes Verified 03/05/24 23:42 rolled back in head", muscle twitching latex Allergy blisters Verified 03/05/24 23:42 nitrofurantoin AdvReac Intermediate Nausea/vomi Verified 03/05/24 23:42 ting Home Medications Medication Instructions Recorded Confirmed Type amoxicillin 500 mg capsule 2,000 mg PO DIRECTED 03/20/22 03/05/24 History betamethasone valerate 0.1 % 1 applic topical BID PRN FLARE UPS 03/20/22 03/06/24 History topical ointment diclofenac sodium 1 % topical gel 1 ea topical BID PRN Pain 03/20/22 03/05/24 History duloxetine 60 mg capsule,delayed 60 mg PO DAILY 03/20/22 03/05/24 History release estradiol 0.01% (0.1 mg/gram) 1 applic vaginal Q2D 03/20/22 03/05/24 History vaginal cream folic acid 1 mg tablet 1 mg PO DAILY 03/20/22 03/05/24 History metoprolol succinate 25 mg 25 mg PO QAM 03/20/22 03/05/24 History tablet,extended release 24 hr nystatin 100,000 unit/gram topical 1 applic topical BID 03/20/22 03/05/24 Histo ry powder (Nystop) apixaban 5 mg tablet (Eliquis) 5 mg PO BID #60 tabs 04/14/22 03/05/24 Rx lisinopril 2.5 mg tablet 2.5 mg PO QAM #30 tabs 04/14/22 03/05/24 Rx nebulizer accessories #1 ea 05/01/22 08/23/23 Rx rosuvastatin 5 mg tablet 5 mg PO DAILY 07/03/22 03/06/24 History latanoprost 0.005 % eye drops 1 drp OPB QPM 01/25/23 03/05/24 History omeprazole 40 mg capsule,delayed 40 mg PO DAILYBB 01/25/23 03/06/24 History release alendronate 70 mg tablet (Fosamax) 70 mg PO WK 08/23/23 03/05/24 History semaglutide 2 mg/dose (8 mg/3 mL) 2 mg subcut .weekly 08/23/23 03/06/24 History subcutaneous pen injector (Ozempic) albuterol sulfate 90 mcg/actuation 2 puff inhalation Q6H PRN 08/28/23 03/05/24 Rx aerosol inhaler Shortness Of Breath Or Wheezing #3 Inhalers umeclidinium 62.5 mcg-vilanterol 1 inh inhalation DAILY #180 ea 08/28/23 03/06/24 Rx 25 mcg/actuation powdr for inhalation (Anoro Ellipta) gabapentin 400 mg capsule 400 mg PO TID 03/05/24 03/05/24 History nystatin-triamcinolone 100,000 1 applic topical BID PRN Skin 03/06/24 03/06/24 History unit/g-0.1 % topical cream Irritation Past Med/Surg History Problem List (Updated 03/06/24 @ 02:14 by Janey Hathaway DO) Generalized weakness (Acute) COPD (chronic obstructive pulmonary disease) (Acute) COVID-19 (Acute) Cough (Acute) Chills (Acute) Pulmonary fibrosis Glossitis Thrush of mouth and esophagus Vocal cord nodules Restrictive lung disease Hoarseness of voice Obesity Ex-smoker Allergic rhinitis with postnasal drip Abnormal chest CT Exertional shortness of breath Accidental fall (Acute) Fall (Acute) Encounter for pre-operative examination Osteoarthritis of right knee Status post total right knee replacement Encounter for pre-operative examination Iron deficiency anemia Urinary tract infection (Acute 08/29/12) Recurrent UTI (Acute) Nephrolithiasis (Acute) Atrophic vaginitis Medical History Oral candidiasis Acute respiratory failure with hypoxia Pneumonia due to COVID-19 virus Bronchitis COVID-19 Sleep apnea "mild" no device History of skin cancer removed Diverticular disease Anemia Hypertension Obesity Hx pulmonary embolism 2012; AC X ONE MONTHS History of kidney stones History of DVT of lower extremity 2012, WAS ON BLOOD THINNERS X ONE MONTH; unk etiology Hiatal hernia GERD (gastroesophageal reflux disease) CONTROLLED Osteoarthritis Surgical History History of left cataract surgery History of lumpectomy x 2 (benign) History of appendectomy History of tonsillectomy History of nasal surgery History of colonoscopy X 2 History of esophagogastroduodenoscopy (EGD) X 2 History of total knee replacement RIGHT Siri filter in place PLACED 2012 History of lumbar spinal fusion History of hysterectomy History of cholecystectomy Family History Father Hypertension Other No family history of adverse response to anesthesia Social History Smoking Status: Never smoker Cigarettes Per Day: HX OF 1 PACK PER WEEK, QUIT 25 YEARS AGO; Second Hand Exposure: No; Do You Dip or Chew Tobacco: No; Hx Alcohol Use: Yes Alcohol type: beer Hx Substance Use: No Preferred Language: Greek Communication Ability: Effective Project Coordinator Required: No Beliefs That Will Affect Care: Sikhism Current Living Situation: Alone Feels Safe at Home: Yes Assistive Devices: Cane Review of Systems Review of Systems: All systems reviewed & are unremarkable except as noted in HPI & below Physical Exam Physical Exam: General- Not in distress. Head- atraumatic Eyes- PERRL. ENT- oropharynx clear Neck- supple, no JVD. Lungs- clear to auscultation no wheezing or crackles Heart- regular rate and rhythm; no murmur, no gallop. Abdomen- normal bowel sounds, soft, nontender, no distension Extremities- no pretibial edema, no erythema seen Neuro- alert, oriented PERRL, no facial palsy; no dysarthria; moves extremities. Skin- warm & dry Results & Data Results & Data Vital Signs (Past 12 Hours) Vital Signs Temp Pulse Pulse Resp Resp BP BP 03/06/24 02:00 85 15 03/06/24 01:03 88 18 03/06/24 01:00 150/77 H 03/06/24 01:00 150/77 H 03/06/24 00:57 84 24 03/06/24 00:04 176/92 H 03/06/24 00:04 176/92 H 03/06/24 00:03 88 18 03/06/24 00:01 202/125 H 03/06/24 00:00 89 14 03/05/24 23:54 03/05/24 23:53 182/90 H 03/05/24 23:53 182/90 H 03/05/24 23:53 182/90 H 03/05/24 23:14 24 03/05/24 22:39 90 21 03/05/24 22:15 87 8 L 03/05/24 22:14 165/93 H 03/05/24 22:14 165/93 H 03/05/24 22:14 165/93 H 03/05/24 22:00 85 20 165/93 H 03/05/24 19:52 87 20 161/96 H 03/05/24 17:57 36.7 C 89 17 145/83 H Pulse Ox Pulse Ox O2 Del Method 03/06/24 02:00 95 03/06/24 01:03 92 03/06/24 01:00 03/06/24 01:00 03/06/24 00:57 93 03/06/24 00:04 03/06/24 00:04 03/06/24 00:03 94 03/06/24 00:01 03/06/24 00:00 94 03/05/24 23:54 93 03/05/24 23:53 03/05/24 23:53 03/05/24 23:53 03/05/24 23:14 93 Room Air 03/05/24 22:39 92 03/05/24 22:15 95 03/05/24 22:14 03/05/24 22:14 03/05/24 22:14 03/05/24 22:00 93 Room Air 03/05/24 19:52 97 Room Air 03/05/24 17:57 96 Room Air Diagnostic Findings Laboratory Results WBC 5.66 K/ul (4.8-10.8) 03/05/24 20:00 RBC 4.81 M/uL (4.20-5.40) 03/05/24 20:00 Hgb 15.1 g/dl (12.0-16.0) 03/05/24 20:00 Hct 45.9 % (37.0-47.0) 03/05/24 20:00 MCV 95.4 fL (80.0-100.0) 03/05/24 20:00 MCH 31.4 pg (25.0-34.0) 03/05/24 20:00 MCHC 32.9 g/dL (32.0-36.0) 03/05/24 20:00 RDW Std Deviation 44.8 fL (36.4-46.3) 03/05/24 20:00 RDW Coeff of Blayne 12.8 % (11.5-14.5) 03/05/24 20:00 Plt Count 144 K/uL (130-400) 03/05/24 20:00 MPV 9.5 fL (9.4-12.4) 03/05/24 20:00 Immature Gran % (Auto) 0.5 % 03/05/24 20:00 Neut % (Auto) 66.0 % 03/05/24 20:00 Lymph % (Auto) 23.0 % 03/05/24 20:00 [place] % (Auto) 8.8 % 03/05/24 20:00 Eos % (Auto) 1.2 % 03/05/24 20:00 Baso % (Auto) 0.5 % 03/05/24 20:00 Neut # (Auto) 3.73 K/uL (1.40-6.50) 03/05/24 20:00 Lymph # (Auto) 1.30 K/uL (1.20-3.40) 03/05/24 20:00 [place] # (Auto) 0.50 K/uL (0.11-0.59) 03/05/24 20:00 Eos # (Auto) 0.07 K/uL (0.00-0.50) 03/05/24 20:00 Baso # (Auto) 0.03 K/uL (0.00-0.20) 03/05/24 20:00 Immature Gran # (Auto) 0.03 K/uL (0.01-0.20) 03/05/24 20:00 PT 11.4 Seconds (9.0-12.0) 03/05/24 21:35 INR 1.1 (0.9-1.1) 03/05/24 21:35 Sodium 136 mmol/L (136-145) 03/05/24 20:00 Potassium 4.1 mmol/L (3.5-5.1) 03/05/24 20:00 Chloride 99 mmol/L (98-107) 03/05/24 20:00 Carbon Dioxide 28 mmol/L (21-32) 03/05/24 20:00 Anion Gap 9 (3-11) 03/05/24 20:00 BUN 17 mg/dl (6-23) 03/05/24 20:00 Creatinine 0.61 mg/dl (0.6-1.2) 03/05/24 20:00 Est Cr Clr Drug Dosing 66.7 ml/min 03/05/24 20:00 Est GFR ( Amer) 100.6 ml/min 03/05/24 20:00 Est GFR (Non-Af Amer) 86.8 ml/min 03/05/24 20:00 BUN/Creatinine Ratio 27.9 (10-20) H 03/05/24 20:00 Glucose 100 mg/dl (70-99(Fasting)) H 03/05/24 20:00 Calcium 9.6 mg/dl (8.6-10.3) 03/05/24 20:00 Magnesium 2.1 mg/dl (1.7-2.4) 03/05/24 20:00 Total Bilirubin 0.5 mg/dl (0.2-1.0) 03/05/24 20:00 AST 20 U/L (13-39) 03/05/24 20:00 ALT 18 U/L (7-52) 03/05/24 20:00 Alkaline Phosphatase 67 U/L (34-104) 03/05/24 20:00 Troponin I High Sens 3.9 pg/ml (0-14) 03/05/24 20:00 Total Protein 7.1 gm/dl (6.0-8.3) 03/05/24 20:00 Albumin 4.7 gm/dl (3.4-5.0) 03/05/24 20:00 Globulin 2.4 gm/dl (2.5-4.0) L 03/05/24 20:00 Albumin/Globulin Ratio 2.0 (0.9-2) 03/05/24 20:00 Lipase 44 U/L (11-82) 03/05/24 20:00 TSH 1.378 uIu/ml (0.300-4.500) 03/05/24 20:00 SARS-CoV-2 (PCR) POSITIVE (Negative) A 03/05/24 18:01 Influenza Type A (PCR) Negative (Neg) 03/05/24 18:01 Influenza Type B (PCR) Negative (Neg) 03/05/24 18:01 RSV (RT-PCR) Negative (Neg) 03/05/24 18:01 ECG Additional Comments: ECG. Normal sinus rhythm with rate of 83. Possible left atrial enlargement. Left anterior fascicular block. QTc 477. Code Status & VTE Plan VTE Prophylaxis Plan VTE Prophylaxis will be ordered: Yes
[2024-03-06] MEDS ORDERED: ALBUTEROL HFA 8 GM INHALER INH PRN (03:20)
[2024-03-06] MEDS ORDERED: NITROGLYCERIN SL 0.4 MG/TAB TAB SL PRN (03:20)
[2024-03-06] MEDS ORDERED: MOMETASONE FUROATE 0.1% OINT 15 GM TUBE EXT PRN (03:55)
[2024-03-06] MEDS: SODIUM CHLORIDE 0.9% 1,000 ML IV SCH (03:57)
--- OUTSIDE RECORDS SUMMARY | 2024-03-06 04:06 | External Medical Summary | Summary of Care ---
Author Name Unknown Organization [facility] Address [address] [place] [address] Phone [phone] Care Team Providers Care Deckhand Clam Dredge Name Role Phone Jcarlos Mcpherson PA-C Primary Care Provide r Reason for Visit * Reason Comments Follow Up Encounter Details Date Type Department Care Team (Late st Contact Info) Description 02/26/2024 4:00 PM EDT Office Visit Urology, [facility] [address] [facility] [place] [id number] Salvador Mireles MD [address] [place] [id number] Vaginal atrophy*; Recurrent UTI; Stress incontinence of urine Allergies Active Allergy Reactions Criticality Noted Date Comments Adhesive Tape 02/11/2020 Blister Compazine Neuro complications (Please comment),Other (Please comment) High 04/04/2010 Ibuprofen Low 01/25/2023 Other Reaction(s): HIVES Latex 01/25/2023 Other Reaction(s): blisters Levofloxacin 01/25/2023 Other Reaction(s): Unknown Enoxaparin Sodium 03/13/2018 Yeast infection Nitrofurantoin Nausea/vomiting 03/13/2018 Morphine Itching 09/02/2012 Naproxen Sodium High 01/25/2023 Other Reaction(s): SOB, HIVES WITH ALEVE Penicillins 01/25/2023 Other Reaction(s): occured as a child, severe itching documented as of this encounter (statuses as of 02/26/2024) Medications Medication Sig Dispensed Refills Start Date End Date Status Apixaban 5 MG Oral Tablet (Eliquis)Indications :HTN, goal below 150/90,Edema TAKE ONE TABLET BY MOUTH EVERY MORNING AND TAKE ONE TABLET BY MOUTH AT BEDTIME 200 Tablet 3 3 Active Folic Acid 1 MG Oral TabletIndications:MT HFR mutation TAKE ONE TABLET BY MOUTH EVERY DAY 90 Tablet 3 4 08/27/19 25 Active Anoro Ellipta 62.5-25 MCG/ACT Inhalation Aerosol Powder Breath Activated (umeclidinium-vilant duran) inhale 1 puff by mouth daily 180 Each 1 4 Active Albuterol Sulfate HFA 108 (90 Base) MCG/ACT Inhalation Aerosol Solution inhale 2 puffs by mouth every 6 hours as needed for shortness of breath or wheezing 54 g 1 4 Active Lisinopril 2.5 MG Oral Tablet (Prinivil)Indication s:Prolonged QT interval,Abnormal genetic test,HTN, goal below 140/90,Dyslipidemia, goal LDL below 100 Take 1 Tablet by mouth in the morning. 100 Tablet 2 4 Active Metoprolol Succinate ER 25 MG Oral Tablet Extended Release 24 Hour (toPROL XL)Indications:Prolo nged QT interval,Abnormal genetic test,HTN, goal below 140/90,Dyslipidemia, goal LDL below 100 Take 1 Tablet by mouth in the morning. 100 Tablet 3 4 Active Rosuvastatin Calcium 5 MG Oral Tablet (Crestor)Indications :Prolonged QT interval,Abnormal genetic test,HTN, goal below 140/90,Dyslipidemia, goal LDL below 100 Take 1 Tablet by mouth in the morning. 100 Tablet 3 4 Active Zinc 50 MG Oral Tablet Take 1 Tablet by mouth in the morning. Active Vitamin D3 125 MCG (5000 UT) Oral Capsule (Cholecalciferol) Take 1 Capsule by mouth in the morning. Active Vitamin C 500 MG Oral Tablet (Ascorbic Acid) Take 1 Tablet by mouth in the morning. Active Diclofenac Sodium 75 MG Oral Tablet Delayed Release (Voltaren) Take 1 Tablet by mouth 2 times a day as needed. Active Levocetirizine Dihydrochloride 5 MG Oral Tablet (Xyzal Allergy 24HR) Take 1 Tablet by mouth at bedtime. Active Diclofenac Sodium 1 % External Gel (Voltaren) Apply a small amount to the affected area daily as needed Active NATURAL SUPPLEMENT Take 1 Capsule by mouth daily as needed. Medical Marijuana Capsules Active Nystatin-Triamcinolo ne 690368-6.1 UNIT/GM-% External Cream (Mycolog)Indications :Yeast infection Apply to affected area two times per day for 1 week 15 g 2 4 Active Latanoprost 0.005 % Ophthalmic Solution (Xalatan) Instill 1 Drop into both eyes at bedtime. 10 mL 3 4 Active Tamsulosin HCl 0.4 MG Oral Capsule (Flomax) TAKE ONE CAPSULE BY MOUTH EVERY MORNING 90 Capsule 3 4 11/29/19 25 Active Ozempic (2 MG/DOSE) 8 MG/3ML Subcutaneous Solution Pen-injector (Semaglutide (2 MG/DOSE))Indications :Class 2 severe obesity due to excess calories with serious comorbidity and body mass index (BMI) of 36.0 to 36.9 in adult (HCC) Inject 2 mg under the skin once a week. 3 mL 2 4 Active Omeprazole 40 MG Oral Capsule Delayed Release (PriLOSEC)Indication s:Gastroesophageal reflux disease with esophagitis without hemorrhage Take 1 Capsule by mouth in the morning. 90 Capsule 2 4 Active DULoxetine HCl 60 MG Oral Capsule Delayed Release Particles (Cymbalta)Indication s:HTN, goal below 150/90 TAKE ONE CAPSULE BY MOUTH EVERY DAY DO NOT CRUSH, CUT OR CHEW 90 Capsule 1 4 12/15/19 25 Active CPAP every night at bedtime. Active Alendronate Sodium 70 MG Oral Tablet (Fosamax)Indications :Age-related osteoporosis without current pathological fracture TAKE ONE TABLET BY MOUTH ONCE A WEEK WITH 8 OZ OF WATER 30 MINUTES BEFORE FIRST MEAL OF THE DAY. REMAIN UPRIGHT FOR 30 MINUTES AFTER TAKING TABLET 15 Tablet 1 4 01/21/20 25 Active Estradiol 0.1 MG/GM Vaginal Cream (Estrace)Indications :Vaginal atrophy Apply one-half gram topically to affected area in the morning. 42.5 g 6 4 Active Gabapentin 400 MG Oral Capsule (Neurontin)Indicatio ns:Sacroiliitis, not elsewhere classified (HCC) Take 1 Capsule by mouth in the morning and 1 Capsule at noon and 1 Capsule before bedtime. 270 Capsule 3 4 Active Sulfamethoxazole-Tri methoprim 400-80 MG Oral Tablet (Bactrim) Take 1 Tablet by mouth in the morning. 90 Tablet 3 4 Active Sulfamethoxazole-Tri methoprim 800-160 MG Oral Tablet (Bactrim DS)Indications:Acute cystitis with hematuria Take 1 Tablet by mouth in the morning and 1 Tablet before bedtime. Do all this for 7 days. Until gone. 14 Tablet 4 02/26/20 24 Discontinued Ciprofloxacin HCl 500 MG Oral Tablet (Cipro) Take 1 Tablet by mouth in the morning and 1 Tablet before bedtime. 14 Tablet 4 02/26/20 24 Discontinued documented as of this encounter (statuses as of 02/26/2024) Active Problems Problem Noted Date Diagnosed Date Impingement syndrome of left shoulder 09/05/2022 Sacroiliitis, not elsewhere classified 3 Pure hypercholesterolemia 06/29/2022 Primary open-angle glaucoma, bilateral, mild sta ge 05/04/2022 Morbid obesity 05/04/2022 Monoallelic mutation of KCNQ1 gene 12/15/2021 Overview: likely pathogenic KCNQ1 gene variant (c.1081 C>T, p.(Q361*)) detected via [employer]. Increased risk for Inherited Arrhythmias. Please click the link below for a brief summary of current clinical management recommendations for inherited arrhythmias. KCNQ1 Stress incontinence of urine 05/03/2021 Medical marijuana use 09/09/2020 Vaginal atrophy 08/27/2020 High risk for fracture due to osteoporosis by DE XA scan 07/15/2020 Overview: DEXA scan 2020. Started on Fosamax 07/15/20 Failed back syndrome of lumbar spine 03/04/2020 Recurrent UTI 03/04/2020 Major depressive disorder wi th single episode, in full remission 07/15/2019 Seasonal allergic rhinitis due to pollen 019 History of total knee arthroplasty 08/19/2018 Methylenetetrahydrofolate reductase (MTHFR) defi ciency 03/13/2018 Presence of IVC filter 12/20/2017 Gastroesophageal reflux disease with esophagitis 04/02/2017 Primary osteoarthritis of both knees 09/08/2016 Dyslipidemia 12/24/2015 BPPV (benign paroxysmal positional vertigo) 06/2015 DIAN (generalized anxiety disorder) 05/08/2014 SIMS (nonalcoholic steatohepatitis) 09/22/2013 LUIS (obstructive sleep apnea) 01/12/2012 Overview: 09/04/14 PSG -- AHI 5.9, RDI 8.1, no desats, 11% TST snoring 12/22/11 PSG - AHI 7.1, very mild nocturnal desats, mild snoring Lumbar spinal stenosis Overview: L 5 documented as of this encounter (statuses as of 02/26/2024) Resolved Problems Problem Noted Date Diagnosed Date Resolved Date Prediabetes 07/03/2022 05/10/2023 Overview: Per Prediabetes protocol Chronic respiratory failure with hypoxia 05/04/2022 07/17/2022 Body mass index (BMI) of 40. 0 to 44.9 in adult 10/03/2021 07/06/2022 Overview: Per Obesity protocol Polyneuropathy in other dise ases classified elsewhere 09/09/2020 08/21/2023 Primary open-angle glaucoma, bilateral, moderate stage 07/15/2019 07/17/2022 Severe obesity (BMI 35.0-39. 9) with comorbidity 05/29/2019 07/17/2022 Moderate episode of recurren t major depressive disorder 08/15/2018 08/06/2019 Overview: More specific code in use. Contusion of face 02/21/2018 03/13/2018 Overview: 02/14/18 While on vaction in [place] Facial laceration 02/21/2018 06/27/2021 Overview: 02/14/18 While on vaction in [place] Closed fracture of nasal bones 02/21/2018 06/27/2021 Overview: 02/14/18 While on vaction in [place] Fall on or from sidewalk curb 02/21/2018 03/13/2018 Overview: 02/14/18 While on vaction in [place] History of nonmelanoma skin cancer 06/12/2017 12/20/2017 Overview: BCC nasal bridge 12/02 Trochanteric bursitis of right hip 05/16/2017 12/20/2017 Hx of non anemic vitamin B12 deficiency 04/02/2017 12/20/2017 History of laminectomy 07/26/201612/20 HTN, goal below 150/90 12/24/201508/21 Bronchospasm, exercise-induced 10/07/2012 06/02/2016 Genetic Sleep Disorder [facility] Other*[id number] 10/19/2011 01/20/2016 Other pulmonary embolism and infarction 06/28/2011 05/30/2012 Deep venous thrombosis of lower extremity 06/28/2011 05/30/2012 Medical home patient encounter 06/28/2011 07/17/2022 Dyslipidemia, goal LDL below 130 01/09/2011 12/24/2015 Trigger finger 04/15/2010 01/09/2011 Carcinoma in situ of other s pecified sites of skin 12/24/2015 Overview: nose 2009 Acute cystitis 09/08/2011 Acute sinusitis 09/08/2011 Calculus of kidney 6 Esophageal reflux 04/02/2017 Arthritis of knee 04/02/2017 Overview: right Cyst of bursa 12/24/2015 Overview: right knee HTN, goal below 140/90 12/23 documented as of this encounter (statuses as of 02/26/2024) Immunizations Name Administration Dates Next Due COVID-19 mRNA, LNP-s, No Pre serve, 2-Dose Series (Moderna) 08/25/2020,07/28/2020 COVID-19 mRNA, LNP-s, PF, 18 + or 6-11Yrs (Moderna) 05/10/2021 DTP Vaccine 05/08/2006 H1N1 2009 Influenza, IM 06/07/2009 Pneumococcal Conjugate Vacc, 13 Valent (Prevnar) 10/15/2015 Pneumococcal Polysaccharide PPV23 (Pneumovax) 04/04/2010 Season Influenza, Quad, PF, Adjuvanted, 65+ Yrs, IM (FLUAD) 03/04/2020 Seasonal Influenza Virus Vac cine, Unspecified Formulation 03/04/2020,03/18/2019,03/13/2018,03/01,04/02/2017,03/21/2016,04/07/2014 ,03/20/2013,02/28/2012,03/24/2011,02/24 Seasonal Influenza, High Dos e, Trivalent, PF, IM (Fluzone HD) 04/02/2017 Seasonal Influenza, PF, 6 M & above, IM , (FluLaval or Fluzone) 03/13/2018 Seasonal Influenza, Quadriva lent Hd (Fluzone Hd) 02/21/2023,07/13/2022,03/14/2021 Seasonal Influenza, Quadriva lent, No Preserve, IM 03/21/2016 Seasonal Influenza, Trivalen t, (IIV3), with Preserv, (Fluzone) 03/01/2018,03/06/2015,04/07/2014,03/20,02/28/2012,03/24/2011,03/19/2010 Seasonal Influenza, Trivalen t, Adjuvanted, 65+ YRS, PF, (Fluad) 03/18/2019 TDAP (age 10 and older)(Boostrix) 12/24/2015 Varicella Zoster Vaccine (Adult) 09/22/2013 documented as of this encounter Social History Tobacco Use Types Packs/Day Years Used Date Smoking Tobacco: Former Cigarettes 0.5 25 1 - 04/05/1990 Smokeless Tobacco: Never Alcohol Use Standard Drinks/Week Comments Yes 2 (1 standard drink = 0.6 oz pur e alcohol) AUDIT-C Answer Date Recorded Q1: How often do you have a drink containing alc ohol? Monthly or less 07/16/2020 Q2: How many drinks containi ng alcohol do you have on a typical day when you are drinking? 1 or 2 07/16/2020 Q3: How often do you have si x or more drinks on one occasion? Not asked 07/16/2020 PHQ-2 Answer Date Recorded PHQ Adult Total Score 0 09/13/2023 Hunger Vital Sign Answer Date Recorded Within the past 12 months, y ou worried that your food would run out before you got the money to buy more. Patient declined Within the past 12 months, t he food you bought just didn't last and you didn't have money to get more. Never true Childcare Answer Date Recorded Do you feel overwhelmed with taking care of a child, family member or friend? No 09/12/2023 Does your family need help f inding childcare? (Household - for ages 0-17 years) Not on file 09/12/2023 Clothing Answer Date Recorded Have you been unable to get clothing when it was really needed? Yes 09/12/2023 Is your family able to get c lothes or diapers when needed? (Household - for ages 0-17 years) Not on file 09/12/2023 Personal Safety Answer Date Recorded Do you feel unsafe or have concerns for your saf ety? No 09/12/2023 Do you have concerns for you r family's safety? (Household - for ages 0-17 years) Not on file 09/12/2023 Utilities Answer Date Recorded Do you have trouble paying y our heating, water, or electric bill? No 09/12/2023 Is your family able to pay t he heat, water, or electric bill? (Household - for ages 0-17 years) Not on file 09/12/2023 Does your family have access to good internet? (Household - for ages 0-17 years) Not on file 09/12/2023 Employment Status Answer Date Recorded Are you unemployed or without regular income? No 09/12/2023 Does the household have a re gular source of income? (Household - for ages 0-17 years) Not on file 09/12/2023 Social Connections Answer Date Recorded How often do you feel lonely or isolated from th ose around you? Rarely 09/12/2023 Financial Resource Strain Answer Date R ecorded Do you have any trouble payi ng for your medications, or do you think you might in the future? No 09/12/2023 Does your family have troubl e paying for medicine? (Household - for ages 0-17 years) Not on file 09/12/2023 Transportation Needs Answer Date Record ed READ ONLY Do you have troubl e getting a ride to medical visits or work? Never True 09/12/2023 Does your family have a hard time getting a ride to doctors visits? (Household - for ages 0-17 years) Not on file 09/12/2023 Has lack of transportation k ept you from medical appointments, meetings, work, or from getting things needed for daily living? Check all that apply. (Adult - for ages 18 years and over) Not on file 09/12/2023 Do you (or your family) have trouble finding or paying for a ride (transportation)? (Household - for ages 0-17 years) Not on file 09/12/2023 Housing Stability Answer Date Recorded Do you currently live in a s helter or have no steady place to sleep at night? No 09/12/2023 READ ONLY Do you think you a re at risk of becoming homeless? No 09/12/2023 Does your family worry about paying for your home or becoming homeless? (Household - for ages 0-17 years) Not on file 0 09/12/2023 Are you homeless or worried that you might be in the future? (Adult - for ages 18 years and over) Not on file Are you (or your family) cooper eless or worried that you might be in the future? (Household - for ages 0-17 years) Not on file Food Insecurity Answer Date Recorded Do you need food for this week? No 09/12/2023 Are you able to get enough f ood for your family? (Household - for ages 0-17 years) Not on file 09/12/2023 Does your family need food t his week? (Household - for ages 0-17 years) Not on file 09/12/2023 Do you always have enough fo od for your family? (Household - for ages 0-17 years) Not on file 09/12/2023 Sex and Gender Information Value Date Recorded Sex Assigned at Female 07/13/2022 1:49 PM EST Gender Identity Female 07/13/2022 1:49 PM EST Sexual Orientation Straight 07/13/2022 1: 49 PM EST Job Start Date Occupation Industry Not on file Not on file Not on file documented as of this encounter Progress Notes * Salvador Mireles MD - 02/26/2024 4:00 PM EDT [id number] PCP: JCARLOS MCPHERSON [facility] [place] [id number] Missy Weems is a 78 year old female, who presents for delayed follow-up of her voiding symptoms and history of UTI. Scanned results are reviewed. She is a poor historian. She notes she stops using vaginal estrogen when she feels improved, associates this with her current UTI episode. Recurrent UTIs: Cystoscopy in 2019. Previously treated with prophylactic antibiotic, self start antibiotic and estrogen cream with good effect. Using prophylactic Bactrim SS. Urinary Incontinence: Patient is being seen for urinary incontinence. Problem has been present for years. Severity is moderate. Problem is getting worse. Urinary incontinence is stress incontinence. They are using 0-2 pads a day. Patient notes episodes of flooding associated with coughing, laughing and sneezing. She tried pelvic PT but found it unhelpful. Trial of tamsulosin provided October 2022. Abdominal CT scan is done in 2021. Positive urine culture for E coli in December 2023. Resistance numerous medications. Results scanned. Current Outpatient Medications Medication Sig Dispense Refill Apixaban 5 MG Oral Tablet (Eliquis) TAKE ONE TABLET BY MOUTH EVERY MORNING AND TAKE ONE TABLET BY MOUTH AT BEDTIME 200 Tablet 3 Folic Acid 1 MG Oral Tablet TAKE ONE TABLET BY MOUTH EVERY DAY 90 Tablet 3 Anoro Ellipta 62.5-25 MCG/ACT Inhalation Aerosol Powder Breath Activated (umeclidinium-vilanterol) inhale 1 puff by mouth daily 180 Each 1 Albuterol Sulfate HFA 108 (90 Base) MCG/ACT Inhalation Aerosol Solution inhale 2 puffs by mouth every 6 hours as needed for shortness of breath or wheezing 54 g 1 Lisinopril 2.5 MG Oral Tablet (Prinivil) Take 1 Tablet by mouth in the morning. 100 Tablet 2 Metoprolol Succinate ER 25 MG Oral Tablet Extended Release 24 Hour (toPROL XL) Take 1 Tablet by mouth in the morning. 100 Tablet 3 Rosuvastatin Calcium 5 MG Oral Tablet (Crestor) Take 1 Tablet by mouth in the morning. 100 Tablet 3 Zinc 50 MG Oral Tablet Take 1 Tablet by mouth in the morning. Vitamin D3 125 MCG (5000 UT) Oral Capsule (Cholecalciferol) Take 1 Capsule by mouth in the morning. Vitamin C 500 MG Oral Tablet (Ascorbic Acid) Take 1 Tablet by mouth in the morning. Diclofenac Sodium 75 MG Oral Tablet Delayed Release (Voltaren) Take 1 Tablet by mouth 2 times a dayas needed. (Patient not taking: Reported on 12/18/2023) Levocetirizine Dihydrochloride 5 MG Oral Tablet (Xyzal Allergy 24HR) Take 1 Tablet by mouth at bedtime. Diclofenac Sodium 1 % External Gel (Voltaren) Apply a small amount to the affected area daily as needed NATURAL SUPPLEMENT Take 1 Capsule by mouth daily as needed. Medical Marijuana Capsules Nystatin-Triamcinolone 584102-5.1 UNIT/GM-% External Cream (Mycolog) Apply to affected area two times per day for 1 week 15 g 2 Latanoprost 0.005 % Ophthalmic Solution (Xalatan) Instill 1 Drop into both eyes at bedtime. 10 mL 3 Tamsulosin HCl 0.4 MG Oral Capsule (Flomax) TAKE ONE CAPSULE BY MOUTH EVERY MORNING 90 Capsule 3 Ozempic (2 MG/DOSE) 8 MG/3ML Subcutaneous Solution Pen-injector (Semaglutide (2 MG/DOSE)) Inject 2 mg under the skin once a week. 3 mL 2 Omeprazole 40 MG Oral Capsule Delayed Release (PriLOSEC) Take 1 Capsule by mouth in the morning. 90Capsule 2 DULoxetine HCl 60 MG Oral Capsule Delayed Release Particles (Cymbalta) TAKE ONE CAPSULE BY MOUTH EVERY DAY DO NOT CRUSH, CUT OR CHEW 90 Capsule 1 CPAP every night at bedtime. Sulfamethoxazole-Trimethoprim 800-160 MG Oral Tablet (Bactrim DS) Take 1 Tablet by mouth in the morning and 1 Tablet before bedtime. Do all this for 7 days. Until gone. 14 Tablet 0 Ciprofloxacin HCl 500 MG Oral Tablet (Cipro) Take 1 Tablet by mouth in the morning and 1 Tablet before bedtime. 14 Tablet 0 Alendronate Sodium 70 MG Oral Tablet (Fosamax) TAKE ONE TABLET BY MOUTH ONCE A WEEK WITH 8 OZ OF WATER 30 MINUTES BEFORE FIRST MEAL OF THE DAY. REMAIN UPRIGHT FOR 30 MINUTES AFTER TAKING TABLET 15 Tablet 1 Estradiol 0.1 MG/GM Vaginal Cream (Estrace) Apply one-half gram topically to affected area in the morning. 42.5 g 6 Gabapentin 400 MG Oral Capsule (Neurontin) Take 1 Capsule by mouth in the morning and 1 Capsule at noon and 1 Capsule before bedtime. 270 Capsule 3 No current facility-administered medications for this visit. Review of patient's allergies indicates: Allergen Reactions Compazine Neuro complications (Please comment) and Other (Please comment) Naproxen Sodium Other Reaction(s): SOB, HIVES WITH ALEVE Adhesive Tape Blister Latex Other Reaction(s): blisters Levofloxacin Other Reaction(s): Unknown Lovenox [Enoxaparin Sodium] Yeast infection Macrobid [Nitrofurantoin] Nausea/vomiting Morphine Itching Penicillins Other Reaction(s): occured as a child, severe itching Ibuprofen Other Reaction(s): HIVES Social History: Social History Tobacco Use Smoking status: Former Current packs/day: 0.00 Average packs/day: 0.5 packs/day for 25.0 years (12.5 ttl pk-yrs) Types: Cigarettes Start date: 04/05/1965 Quit date: 04/05/1990 Years since quittin.9 Smokeless tobacco: Never Substance Use Topics Alcohol use: Yes Alcohol/week: 2.0 standard drinks of alcohol Types: 2 12 oz of beer per week Vaping/E-Cigarette Use Vaping/E-Cigarette Use Never User Vaping/E-Cigarette Substances Vaping/E-Cigarette Devices Family History Problem Relation Name Age of Onset Lymphoma Mother Heart Disorder Father age 91 Rheum arthritis Father Other (hemochromotosis) Sister Rheum arthritis Sister Other (hemochromotosis) Brother Rheum arthritis Brother Rheum arthritis Brother Rheum arthritis Brother Past Surgical History: Procedure Laterality Date ARTHROPLASTY KNEE TOTAL Right 03/2018 COLONOSCOPY, DIAGNOSTIC (RECTUM) 06/04/2019 diverticulosis / [facility] COLORECTAL CANCER SCREEN; NOT AT RISK 07/13/2010 normal colon exam repeat in 10 years EGD, FLEXIBLE, DIAGNOSTIC 09/03/2012 UPPER GI ENDOSCOPY DIAGNOSTIC [facility], no evidence of celiac disease or infection, symptoms most likely related to potassium supplements EGD, FLEXIBLE, DIAGNOSTIC 06/04/2019 acid reflux / [facility] EXC BREAST LESION RADMARK Right 11/09/2015 EXCISION OF BREAST LESION RADIOLOGICAL MARKER performed by Missy Cordero MD at [facility] dx right breast tissue 9:00, needle localized excision breast tissue with focal areas of fibrocystic changeand abudant mature adipose tissue - EXC BREAST LESION RADMARK Right 03/09/2020 EXCISION OF BREAST LESION RADIOLOGICAL MARKER performed by Haresh Moulton MD at OR [facility] IR FILTER PLACEMENT VENA CAVA 06/23/11 MISCELLANEOUS ORDER ([facility] ONLY) 2012 spinal fusion REMOVAL OF APPENDIX 1950 REMOVAL OF LINGUAL TONSIL 1948 REMOVE GALLBLADDER 1964 SACROILIAC JOINT INJECT W/GUIDANCE 03/01/2022 INJECTION SACROILIAC JOINT performed by Leonard Ocampo DO at OR [facility] SACROILIAC JOINT INJECT W/GUIDANCE 10/04/2022 INJECTION SACROILIAC JOINT performed by Leonard Ocampo DO at OR [facility] SACROILIAC JOINT INJECT W/GUIDANCE 01/10/2023 INJECTION SACROILIAC JOINT performed by Leonard Ocampo DO at OR [facility] SACROILIAC JOINT INJECT W/GUIDANCE 06/06/2023 INJECTION SACROILIAC JOINT performed by Leonard Ocampo DO at [facility] SPINAL FUSION, LUMBAR, COMBINED 2012 Dr. Garcia TOTAL ABD HYSTERECTOMY W/WO REMOVAL OF TUBE(S) 1979 for fibroid TREAT NOSE FX W/STABILIZATION Right 02/28/2018 CLOSED TREATMENT NASAL FRACTURE WITH STABILIZATION performed by James De Jesus DO at OR [facility] Past Medical History: Diagnosis Date Arthritis of knee right Calculus of kidney Carcinoma in situ of other specified sites of skin nose 2009 Closed fracture of nasal bones 02/21/2018 02/14/18 While on vaction in [place] Contusion of face 02/21/2018 02/14/18 While on vaction in [place] Coronary artery disease (CAD) excluded negative nuclear stress test Cyst of bursa right knee Esophageal reflux Facial laceration 02/21/2018 02/14/18 While on vaction in [place] Facial laceration 02/21/2018 02/14/18 While on vaction in [place] Fall on or from sidewalk curb 02/21/2018 02/14/18 While on vaction in [place] Fatty liver disease, nonalcoholic HTN, goal below 140/90 Lipoma of unspecified site 3 total Normal cardiac stress test 06/2011 nuclear LUIS (obstructive sleep apnea) mild not on c-pap PE (pulmonary embolism) 05/2011 workup +ve MTHFR homo ,nl homocysteine Seasonal allergic rhinitis due to pollen 09/11/2018 Sleep apnea, obstructive Spinal stenosis, unspecified region other than cervical L 5 Patient Active Problem List Diagnosis Lumbar spinal stenosis LUIS (obstructive sleep apnea) SIMS (nonalcoholic steatohepatitis) DIAN (generalized anxiety disorder) Dyslipidemia BPPV (benign paroxysmal positional vertigo) Primary osteoarthritis of both knees Gastroesophageal reflux disease with esophagitis Presence of IVC filter Methylenetetrahydrofolate reductase (MTHFR) deficiency ([facility]) Seasonal allergic rhinitis due to pollen Major depressive disorder with single episode, in full remission ([facility]) 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 Recurrent UTI High risk for fracture due to osteoporosis by DEXA scan Vaginal atrophy Medical marijuana use Stress incontinence of urine Monoallelic mutation of KCNQ1 gene Primary open-angle glaucoma, bilateral, mild stage Morbid obesity ([facility]) Sacroiliitis, not elsewhere classified ([facility]) Pure hypercholesterolemia Impingement syndrome of left shoulder Constitutional: (-) fever and (-) chills Eyes: (+) corrective lenses ENT: (-) stridor Female : (+) see HPI Musculoskeletal: (+) back pain/problems Neurology: (-) negative: no focal neurologic defect Psychiatry: (+) depression Physical Exam Nursing note reviewed. Constitutional: General: She is not in acute distress. Appearance: Normal appearance. She is obese. She is not toxic-appearing. HENT: Head: Normocephalic and atraumatic. Right Ear: External ear normal. Left Ear: External ear normal. Nose: Nose normal. Mouth/Throat: Mouth: Mucous membranes are moist. Eyes: Extraocular Movements: Extraocular movements intact. Cardiovascular: Pulses: Normal pulses. Pulmonary: Effort: Pulmonary effort is normal. No respiratory distress. Abdominal: General: Abdomen is protuberant. Palpations: Abdomen is soft. Musculoskeletal: General: No deformity or signs of injury. Cervical back: Normal range of motion and neck supple. Skin: General: Skin is warm. Coloration: Skin is not pale. Neurological: General: No focal deficit present. Mental Status: She is alert and oriented to person, place, and time. Psychiatric: Mood and Affect: Mood normal. Behavior: Behavior normal. Impression/Plan: 78-year-old female with a history of recurrent UTI and bladder bother. Findings reviewed with the patient. Will resume regimen as previous. PRN UC&S order replaced. Refill of prophylactic Bactrim SS provided. Encouraged to use vaginal estrogens QOD for at least a month or two as well as tamsulosin regularly. RTO in 6 months to check on progress. Above content is personally reviewed. Patient vocalizes good understanding of the treatment plan. Salvador Mireles MD 1:46 PM 02/26/2024 documented in this encounter Nursing Notes * Meenu Dukes LPN - 02/26/2024 3:52 PM EDT Ret, last seen October 2022 Hx recurrent UTIs, bothersome voiding symptoms Estradiol, tamsulosin C/o- flare up 6 weeks ago, has resolved since, no current symptoms--needs refilled Bactrim documented in this encounter Plan of Treatment Upcoming Encounters Date Type Department Care Team (Late st Contact Info) Description 03/14/2024 12:50 PM EDT Hospital Encounter OR [facility], Operating Room [facility] [address] [place] [phone] Ness Lundy MD [address] [place] [address] [place] [address] 03/14/2024 12:50 PM EDT - 03/14/2024 1:10 PM EDT Surgery OR O[facility], Operating Room [facility] [address] [address] [phone] Ness Lundy MD [address] [place] [id number] INJECTION SACROILIAC JOINT 05/14/2024 1:00 PM EST Office Visit Allergy/Immunology Laisha V[facility] [place] [address] [place] [address] Michael Vieira MD 200 [facility] [place] [address] 07/10/2024 12:40 PM EST Office Visit Family Practice [address], [place] [address] [place] [address] Jcarlos Mcpherson PA-C [address] [place] [address] 09/09/2024 3:00 PM EDT Office Visit Urology, [facility] 132 [facility] [place] [address] Salvador Mireles MD [address] [place] [address] 09/18/2024 2:30 PM EDT Nurse Only Ancillary [address], [place] [address] [place] [address] [place], Nurse Annual Wellness [address] [place] [place] [address] 02/04/2025 12:50 PM EDT Office Visit Dermatology [address], [place] [address] [place] [address] Amy Mckeon PA-C [address] [facility] [place] [address] Scheduled Orders Name Type Priority Associated Diagnoses Orde r Schedule CULTURE, URINE, QUANTITATIVE Lab Routine Vaginal atrophy Recurrent UTI Stress incontinence of urine 6 Occurrences starting 02/26/2024 until 02/25/2025 Scheduled Procedures Name Priority Associated Diagnoses Date/Ti me INJECTION SACROILIAC JOINT Inflammation of sacroiliac joint (HCC) 03/14/2024 12:50 PM EDT Health Maintenance Due Date Last Done Comments Zoster Vaccines (2 of 3) 11/17/2013 09/22/2013 COVID-19 Vaccine ( - season) 2024 05/10/2021, 08/25/2020, 07/28/2020 Influenza Vaccine (FLU shot) (#1) 2024 02/21/2023, 07/13/2022, 03/14/2021, Additional history exists Adult Wellness Visit 09/12/2024 09/13/2023, 07/13/19 23 Depression Monitoring 09/12/2024 09/13/2023 DXA Scan 12/06/2024 12/06/2022, 11/23, 07/13/2020, Additional history exists DTap/Tdap Vaccines (3 - Td or Tdap) 12/23/2025 12/24/2015, 05/08/2006 Hepatitis C Screening Completed 10/07/2010 Pneumococcal Vaccine: 65+ Years Completed 10/15/2015, 04/04/2010 Albumin/Creatinine Ratio Discontinued 09/27/2022, 10/2022 VITAMIN D LEVEL ONCE IN A LIFETIME-USE SMARTSET# [id number] Completed 04/30/2023, 12/21/2021, 09/13/2020, Additional history exists HPV (Gardasil) Vaccine Aged Out No lo nger eligible based on patient's age to complete this topic Hepatitis B Vaccine Aged Out No longe r eligible based on patient's age to complete this topic MENINGOCOCCAL (MENACTRA/MENVEO) Aged Out No longer eligible based on patient's age to complete this topic documented as of this encounter Medical Devices Not on filedocumented as of this encounter Visit Diagnoses Diagnosis Vaginal atrophy- Primary Postmenopausal atrophic vaginitis Recurrent UTI Urinary tract infection, site not specified Stress incontinence of urine Inflammation of sacroiliac joint (HCC) Sacroiliitis, not elsewhere classified documented in this encounter Care Teams Deckhand Clam Dredge Relationship Specialty Start Date End Date Jcarlos Mcpherson PA-C [address] [facility] [place] [id number] PCP - General Physician Personnel Records Clerk 07/10/23 documented as of this encounter
--- OUTSIDE RECORDS SUMMARY | 2024-03-06 04:06 | External Medical Summary | Summary of Care ---
Author Name Unknown Organization [facility] Address [address] [place] [address] Phone [phone] Care Team Providers Care Chemical Analytical Sampler Name Role Phone Jcarlos Laureano PA-C Primary Care Provide r Encounter Details Date Type Department Care Team (Latest Contact Info) Description 02/05/2024 8:43 AM EDT - 02/05/2024 11:59 PM EDT Hospital Encounter Radiology Film File [address], [place] [id number] Arrived Discharge Disposition: Home - Self Care Allergies Active Allergy Reactions Criticality Noted Date [...] as of this encounter (statuses as of 02/06/2024) Medications Medication Sig Dispensed Refills Start Date End Date Status Estradiol 0.1 MG/GM Vaginal Cream (Estrace)Indications: Vaginal atrophy Apply 1/2 g topically to affected area in the morning. 42.5 g 6 02/08/2023 Active Gabapentin 400 MG Oral Capsule (Neurontin)Indication s:Sacroiliitis, not elsewhere classified (HCC) Take 1 Capsule by mouth in the morning and 1 Capsule at noon and 1 Capsule before bedtime. 270 Capsule 3 02/19/2023 Active Apixaban 5 MG Oral Tablet (Eliquis)Indications: HTN, goal below 150/90,Edema TAKE ONE TABLET BY MOUTH EVERY MORNING AND TAKE ONE TABLET BY MOUTH AT BEDTIME 200 Tablet 3 04/17/2023 Active Folic Acid 1 MG Oral TabletIndications:MTH FR mutation TAKE ONE TABLET BY MOUTH EVERY DAY 90 Tablet 3 08/27/2023 Active Anoro Ellipta 62.5-25 MCG/ACT Inhalation Aerosol Powder Breath Activated (umeclidinium-vilante rol) inhale 1 puff by mouth daily 180 Each 1 08/28/2023 Active Albuterol Sulfate HFA 108 (90 Base) MCG/ACT Inhalation Aerosol Solution inhale 2 puffs by mouth every 6 hours as needed for shortness of breath or wheezing 54 g 1 08/28/2023 Active Lisinopril 2.5 MG Oral Tablet (Prinivil)Indications :Prolonged QT interval,Abnormal genetic test,HTN, goal below 140/90,Dyslipidemia, goal LDL below 100 Take 1 Tablet by mouth in the morning. 100 Tablet 2 08/31/2023 Active Metoprolol Succinate ER 25 MG Oral Tablet Extended Release 24 Hour (toPROL XL)Indications:Prolon ged QT interval,Abnormal genetic test,HTN, goal below 140/90,Dyslipidemia, goal LDL below 100 Take 1 Tablet by mouth in the morning. 100 Tablet 3 08/31/2023 Active Rosuvastatin Calcium 5 MG Oral Tablet (Crestor)Indications: Prolonged QT interval,Abnormal genetic test,HTN, goal below 140/90,Dyslipidemia, goal LDL below 100 Take 1 Tablet by mouth in the morning. 100 Tablet 3 08/31/2023 Active Zinc 50 MG Oral Tablet Take [...] daily as needed. Medical Marijuana Capsules Active Nystatin-Triamcinolon e 225440-2.1 UNIT/GM-% External Cream (Mycolog)Indications: Yeast infection Apply to affected area two times per day for 1 week 15 g 2 11/22/2023 Active Latanoprost 0.005 % Ophthalmic Solution (Xalatan) Instill 1 Drop into both eyes at bedtime. 10 mL 3 11/23/2023 Active Tamsulosin HCl 0.4 MG Oral Capsule (Flomax) TAKE ONE CAPSULE BY MOUTH EVERY MORNING 90 Capsule 3 11/29/2023 5 Active Ozempic (2 MG/DOSE) 8 MG/3ML Subcutaneous Solution Pen-injector (Semaglutide (2 MG/DOSE))Indications: Class 2 severe obesity due to excess calories with serious comorbidity and body mass index (BMI) of 36.0 to 36.9 in adult (HCC) Inject 2 mg under the skin once a week. 3 mL 2 12/12/2023 Active Omeprazole 40 MG Oral Capsule Delayed Release (PriLOSEC)Indications :Gastroesophageal reflux disease with esophagitis without hemorrhage Take 1 Capsule by mouth in the morning. 90 Capsule 2 12/14/2023 Active DULoxetine HCl 60 MG Oral Capsule Delayed Release Particles (Cymbalta)Indications :HTN, goal below 150/90 TAKE ONE CAPSULE BY MOUTH EVERY DAY DO NOT CRUSH, CUT OR CHEW 90 Capsule 1 12/15/2023 5 Active CPAP every night at bedtime. Active Sulfamethoxazole-Trim ethoprim 800-160 MG Oral Tablet (Bactrim DS)Indications:Acute cystitis with hematuria Take 1 Tablet by mouth in the morning and 1 Tablet before bedtime. Do all this for 7 days. Until gone. 14 Tablet 01/10/2024 Active Ciprofloxacin HCl 500 MG Oral Tablet (Cipro) Take 1 Tablet by mouth in the morning and 1 Tablet before bedtime. 14 Tablet 01/14/2024 Active Alendronate Sodium 70 MG Oral Tablet (Fosamax)Indications: Age-related osteoporosis without current pathological fracture TAKE ONE TABLET BY MOUTH ONCE A WEEK WITH 8 OZ OF WATER 30 MINUTES BEFORE FIRST MEAL OF THE DAY. REMAIN UPRIGHT FOR 30 MINUTES AFTER TAKING TABLET 15 Tablet 1 01/21/2024 5 Active documented as of this encounter (statuses as of 02/06/2024) Active Problems Problem Noted Date Diagnosed Date Impingement syndrome of left shoulder 09/05/2022 Sacroiliitis, not elsewhere classified 3 Pure hypercholesterolemia 06/29/2022 Primary open-angle glaucoma, bilateral, mild sta ge 05/04/2022 Morbid obesity 05/04/2022 Monoallelic mutation of KCNQ1 gene 12/15/2021 Overview: likely pathogenic KCNQ1 gene variant (c.1081 C>T, p.(Q361*)) detected via [employer]. Increased risk for Inherited Arrhythmias. Please click [...] as of this encounter (statuses as of 02/06/2024) Resolved Problems Problem Noted Date Diagnosed Date [...] 03/13/2018 Overview: 02/14/18 While on vaction in [place] Facial laceration 02/21/2018 06/27/2021 Overview: 02/14/18 While on vaction in [place] Closed fracture of nasal bones 02/21/2018 06/27/2021 Overview: 02/14/18 While on vaction in [place] Fall on or from sidewalk curb 02/21/2018 03/13/2018 Overview: 02/14/18 While on vaction in [place] History of nonmelanoma skin cancer 06/12/2017 12/20/2017 Overview: BCC nasal bridge 12/02 Trochanteric bursitis of right hip 05/16/2017 12/20/2017 Hx of non anemic vitamin B12 deficiency 04/02/2017 12/20/2017 History of laminectomy 07/26/201612/20 HTN, goal below 150/90 12/24/201508/21 Bronchospasm, exercise-induced 10/07/2012 06/02/2016 Genetic Sleep Disorder [facility] Other*[id number] 10/19/2011 01/20/2016 Other pulmonary embolism and infarction [...] as of this encounter (statuses as of 02/06/2024) Immunizations Name Administration Dates Next Due COVID-19 [...] cine, Unspecified Formulation 03/04/2020,03/18/2019,03/13/2018,03/01,04/02/2017,03/21/2016,04/07/2014 ,03/20/2013,02/28/2012,03/24/2011,02/24 Seasonal Influenza, PF, 6 M & above, IM , (FluLaval or Fluzone) 03/13/2018 Seasonal Influenza, Quadriva lent Hd (Fluzone Hd) 02/21/2023,07/13/2022,03/14/2021 Seasonal Influenza, Quadriva lent, No Preserve, IM 03/21/2016 Seasonal Influenza, Split, I IV3, With Preserve, Inj 03/01/2018,03/06/2015,04/07/2014,03/20,02/28/2012,03/24/2011,03/19/2010 Seasonal Influenza, Trivalen t, Adjuvanted, 65+ yrs 03/18/2019 Seasonal Influenza, Trivalen t, High Dose, No Preserve, IM 04/02/2017 TDAP (age 10 and older)(Boostrix) 12/24/2015 Varicella [...] No 09/12/2023 Does the household have a [facility] source of income? (Household - for ages [...] on file documented as of this encounter Plan of Treatment Upcoming Encounters Date Type Department Care Team (Late st Contact Info) Description 02/22/2024 1:50 PM EDT Office Visit Dermatology [place] 8 [facility] [place] [address] Amy Mckeon PA-C [address] [facility] [place] [id number] 02/26/2024 4:00 PM EDT Office Visit Urology, [facility] 132 [facility] [place] [address] Salvador Mireles MD [address] [address] 03/14/2024 12:50 PM EDT Hospital Encounter OR [facility], Operating Room [facility] 132 [facility] [place] [phone] Ness Lundy MD [address] [place] [address] 03/14/2024 12:50 PM EDT - 03/14/2024 1:10 PM EDT Surgery OR [facility], Operating Room [facility] [address] [place] [phone] Ness Lundy MD [address] [place] [address] INJECTION SACROILIAC JOINT 05/14/2024 1:00 PM EST Office Visit Allergy/Immunology [facility] [address] [place] [address] Michael Vieira MD [address] [place] [address] 06/20/2024 12:00 PM EST Office Visit Sleep Disorders Ctr [facility] 132 [facility] [place] [phone] Edilma Brown CRNP 132 [facility] [place] [address] 07/10/2024 12:40 PM EST Office Visit Family Practice [place], [place] [address] [place] [address] Jcarlos Laureano PA-C [address] [place] [address] 09/18/2024 2:30 PM EDT Nurse Only Ancillary [address], [place] [address] [place] [address] Jam[place], Nurse Annual Wellness [place] [address] [facility] [place] [address] 02/04/2025 12:50 PM EDT Office Visit Dermatology [place], [place] [address] [place] [address] Amy Mckeon PA-C [address] [facility] [place] [address] Scheduled Procedures Name Priority Associated Diagnoses Date/Ti me INJECTION SACROILIAC JOINT Inflammation of sacroiliac joint (HCC) 03/14/2024 12:50 PM EDT Health Maintenance Due Date Last Done Comments Zoster Vaccines (2 of 3) 11/17/2013 09/22/2013 COVID-19 Vaccine ( - season) 2023 05/10/2021, 08/25/2020, 07/28/2020 Influenza Vaccine (FLU shot) (#1) 2024 02/21/2023, 07/13/2022, 03/14/2021, Additional history exists Adult Wellness Visit 09/12/2024 09/13/2023, 07/13/19 23 Depression Monitoring 09/12/2024 09/13/2023 DXA Scan 12/06/2024 12/06/2022, 11/23, 07/13/2020, Additional history exists DTaP,Tdap,and Td Vaccines (3 - Td or Tdap) 12/23/2025 12/24/2015, 05/08/2006 Hepatitis C Screening Completed 10/07/2010 Pneumococcal Vaccine: 65+ Years Completed 10/15/2015, 04/04/2010 Albumin/Creatinine Ratio Discontinued 09/27/2022, 10/2022 VITAMIN D LEVEL ONCE IN A LIFETIME-USE SMARTSET# [id number] Completed 04/30/2023, 12/21/2021, 09/13/2020, Additional history exists [...] Not on filedocumented as of this encounter Procedures Procedure Name Priority Date/Time Associated Diagnosis Comments DERM EXAM - DERM (IMAGES ONLY, NO REPORT) Routine 02/05/2024 8:43 AM EDT Diffuse photodamage of skin History of nonmelanoma skin cancer Skin exam, screening for cancer documented in this encounter Results * DERM EXAM - DERM (IMAGES ONLY, NO REPORT) (02/05/2024 8:43 AM EDT) Narrative Scheduling, Silent - 02/05/2024 8:43 AM EDT This is an imaging study not interpreted or resulted by a [facility] or [employer] contracted radiologist. Amy Mckeon PA-C RADIOLOGY ( RAD GENERAL) documented in this encounter Care Teams Chemical Analytical Sampler Relationship Specialty Start Date End Date Jcarlos Laureano PA-C [address] [facility] [place] [id number] PCP - General Physician Inspector Motor Vehicles 07/10/23 documented as of this encounter
--- OUTSIDE RECORDS SUMMARY | 2024-03-06 04:06 | External Medical Summary | Summary of Care ---
Author Name Unknown Organization [facility] Address [address] [facility] [place] [address] Phone [phone] Care Team Providers Care Salt Maker Name Role Phone Jcarlos Mcpherson PA-C Primary Care Provide r Reason for Visit * Reason Comments Follow Up Encounter Details Date Type Department Care Team (Late st Contact Info) Description 02/26/2024 4:00 PM EDT Office Visit Urology, [facility] [address] [facility] [place] [address] Salvador Mireles MD [address] [place] [address] [...] needed. Medical Marijuana Capsules Active Nystatin-Triamcinolo ne 144905-3.1 UNIT/GM-% External Cream (Mycolog)Indications :Yeast infection Apply [...] gene variant (c.1081 C>T, p.(Q361*)) detected via [employer]. Increased risk for Inherited Arrhythmias. Please click [...] 03/13/2018 Overview: 02/14/18 While on vaction in [place] Facial laceration 02/21/2018 06/27/2021 Overview: 02/14/18 While on vaction in [place] Closed fracture of nasal bones 02/21/2018 06/27/2021 Overview: 02/14/18 While on vaction in [place] Fall on or from sidewalk curb 02/21/2018 03/13/2018 Overview: 02/14/18 While on vaction in [place] History of nonmelanoma skin cancer 06/12/2017 12/20/2017 Overview: BCC nasal bridge 12/02 Trochanteric bursitis of right hip 05/16/2017 12/20/2017 Hx of non anemic vitamin B12 deficiency 04/02/2017 12/20/2017 History of laminectomy 07/26/201612/20 HTN, goal below 150/90 12/24/201508/21 Bronchospasm, exercise-induced 10/07/2012 06/02/2016 Genetic Sleep Disorder [facility]ea [facility] Other*[id number] 10/19/2011 01/20/2016 Other pulmonary embolism and infarction [...] Mireles MD - 02/26/2024 4:00 PM EDT [id number] PCP: [facility] [place] [phone] Missy Weems is a [...] daily as needed. Medical Marijuana Capsules Nystatin-Triamcinolone 204811-6.1 UNIT/GM-% External Cream (Mycolog) Apply to affected [...] 03/2018 COLONOSCOPY, DIAGNOSTIC (RECTUM) 06/04/2019 diverticulosis / [facility] COLORECTAL CANCER SCREEN; NOT AT RISK 07/13/2010 normal colon exam repeat in 10 years EGD, FLEXIBLE, DIAGNOSTIC 09/03/2012 UPPER GI ENDOSCOPY DIAGNOSTIC performed by David Grimes MD at [facility], no evidence of celiac disease or infection, symptoms most likely related to potassium supplements EGD, FLEXIBLE, DIAGNOSTIC 06/04/2019 acid reflux / [facility] EXC BREAST LESION RADMARK Right 11/09/2015 EXCISION OF BREAST LESION RADIOLOGICAL MARKER performed by Missy Cordero MD at OR [facility] dx right breast tissue 9:00, needle localized excision breast tissue with focal areas of fibrocystic changeand abudant mature adipose tissue - EXC BREAST LESION RADMARK Right 03/09/2020 EXCISION OF BREAST LESION RADIOLOGICAL MARKER performed by Haresh Moulton MD at OR [facility] IR FILTER PLACEMENT VENA CAVA 06/23/11 MISCELLANEOUS ORDER ([facility] ONLY) 2012 spinal fusion REMOVAL OF APPENDIX 1950 REMOVAL OF LINGUAL TONSIL 1948 REMOVE GALLBLADDER 1964 SACROILIAC JOINT INJECT W/GUIDANCE 03/01/2022 INJECTION SACROILIAC JOINT performed by Leonard Ocampo DO at OR [facility] SACROILIAC JOINT INJECT W/GUIDANCE 10/04/2022 INJECTION SACROILIAC JOINT performed by Leonard Ocampo DO at OR [facility] SACROILIAC JOINT INJECT W/GUIDANCE 01/10/2023 INJECTION SACROILIAC JOINT performed by Leonard Ocampo DO at OR [facility] SACROILIAC JOINT INJECT W/GUIDANCE 06/06/2023 INJECTION SACROILIAC JOINT performed by Leonard Ocampo DO at OR [facility] SPINAL FUSION, LUMBAR, COMBINED 2012 Dr. 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 Closed fracture of nasal bones 02/21/2018 02/14/18 While on vaction in [place] Contusion of face 02/21/2018 02/14/18 While on vaction in [place] Coronary artery disease (CAD) excluded negative nuclear stress test Cyst of bursa right knee Esophageal reflux Facial laceration 02/21/2018 02/14/18 While on vaction in [place] Facial laceration 02/21/2018 02/14/18 While on vaction in [place] Fall on or from sidewalk curb 02/21/2018 02/14/18 While on vaction in [place] Fatty liver disease, nonalcoholic HTN, goal below [...] of IVC filter Methylenetetrahydrofolate reductase (MTHFR) deficiency ([facility]) Seasonal allergic rhinitis due to pollen Major depressive disorder with single episode, in full remission ([facility]) 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 Recurrent UTI High risk for fracture due to osteoporosis by DEXA scan Vaginal atrophy Medical marijuana use Stress incontinence of urine Monoallelic mutation of KCNQ1 gene Primary open-angle glaucoma, bilateral, mild stage Morbid obesity ([facility]) Sacroiliitis, not elsewhere classified ([facility]) Pure hypercholesterolemia Impingement syndrome of left shoulder [...] EDT Hospital Encounter OR [facility], Operating Room [facility] [address] [place] [phone] Ness Ludny MD [address] [place] [address] [place] [address] 03/14/2024 12:50 PM EDT - 03/14/2024 1:10 PM EDT Surgery OR O[facility], Operating Room [facility] [address] [place] [phone] Ness Lundy MD [address] [place] [address] INJECTION SACROILIAC JOINT 05/14/2024 1:00 PM EST Office Visit Allergy/Immunology [place] [address] [place] [address] Michael Vieira MD 200 [facility] [place] [address] 07/10/2024 12:40 PM EST Office Visit Family Practice [address], [place] [address] [place] [address] Jcarlos Mcpherson PA-C [address] [place] [address] 09/09/2024 3:00 PM EDT Office Visit Urology, [facility] 132 [facility] [place] [address] Salvador Mireles MD [address] [place] [address] 09/18/2024 2:30 PM EDT Nurse Only Ancillary [address], [place] [address] [place] [address] [place], Nurse Annual Wellness [address] [place] [address] 02/04/2025 12:50 PM EDT Office Visit Dermatology [address], [place] [address] [place] [address] Amy Mckeon PA-C [address] [facility] [place] [address] Scheduled Orders Name Type Priority Associated Diagnoses [...] D LEVEL ONCE IN A LIFETIME-USE SMARTSET# [id number] Completed 04/30/2023, 12/21/2021, 09/13/2020, Additional history exists [...] classified documented in this encounter Care Teams Salt Maker Relationship Specialty Start Date End Date Jcarlos Mcpherson PA-C [address] [facility] [place] [address] PCP - General Physician Special Projects Manager 07/10/23 documented as of this encounter
--- OUTSIDE RECORDS SUMMARY | 2024-03-06 04:06 | External Medical Summary | Summary of Care ---
Author Name Unknown Organization [facility] Address [address] [facility] [place] [address] Phone [phone] Care Team Providers Care Cyber Systems Operations Specialist Name Role Phone Jcarlos Laureano PA-C Primary Care Provide r Reason for Visit * Reason Comments Skin Check Routine skin exam. R ough spot on left shoulder. Hx: BCC Encounter Details Date Type Department Care Team (Late st Contact Info) Description 02/05/2024 8:40 AM EDT Office Visit Dermatology [facility] [address] [place] [address] Amy Mckeon PA-C [address] [place] [address] Epidermoid cyst*; Seborrheic keratosis; Diffuse photodamage of skin; History of nonmelanoma skin cancer; Skin exam, screening for cancer Allergies Active Allergy Reactions Criticality Noted Date [...] as of this encounter (statuses as of 02/05/2024) Medications Medication Sig Dispensed Refills Start Date [...] MOUTH EVERY DAY 90 Tablet 3 08/27/2023 5 Active Anoro Ellipta 62.5-25 MCG/ACT Inhalation Aerosol [...] needed. 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 Increased risk for Inherited Arrhythmias. Please click [...] Dyslipidemia 12/24/2015 BPPV (benign paroxysmal positional vertigo) 0706/2015 DIAN (generalized anxiety disorder) 05/08/2014 SIMS (nonalcoholic steatohepatitis) 09/22/2013 LUIS (obstructive sleep apnea) 01/12/2012 Overview: 09/04/14 PSG -- AHI 5.9, RDI 8.1, no desats, 11% TST snoring 12/22/11 PSG - AHI 7.1, very mild nocturnal desats, mild snoring Lumbar spinal stenosis Overview: L 5 documented as of this encounter (statuses as of 02/05/2024) Resolved Problems Problem Noted Date Diagnosed Date [...] exercise-induced 10/07/2012 06/02/2016 Genetic Sleep Disorder [facility] Other*[id number] 10/19/2011 01/20/2016 Other pulmonary embolism and infarction 06/28/2011 05/30/2012 Deep venous thrombosis of lower extremity 06/28/2011 05/30/2012 Medical home patient encounter 06/28/2011 07/17/2022 Dyslipidemia, goal LDL below 130 01/09/2011 12/24/2015 Trigger finger 04/15/2010 01/09/2011 Carcinoma in situ of other s pecified sites of skin 12/24/2015 Overview: nose 2010 Acute cystitis 09/08/2011 Acute sinusitis 09/08/2011 Calculus of kidney 6 Esophageal reflux 04/02/2017 Arthritis of knee 04/02/2017 Overview: right Cyst of bursa 12/24/2015 Overview: right knee HTN, goal below 140/90 12/23 documented as of this encounter (statuses as of 02/05/2024) Immunizations Name Administration Dates Next Due COVID-19 [...] No 09/12/2023 Does the household have a [facility] source of income? (Household - for ages [...] as of this encounter Progress Notes * Denys Sawant MD - 02/05/2024 10:31 AM EDT I have reviewed the charting notes and orders and associated images and agree with the assessment and plan of Amy Marte PA-C . Denys Sawant MD., Dermatology [facility] Out[facility] Specialty Departments [facility] [facility] [place] [address] * Amy Mckeon PA-C - 02/05/2024 8:43 AM EDT Nursing Notes: Verna Longoria LPN 02/05/24 0836 Signed Patient identified by name and date. Chief Complaint Patient presents with Skin Check Routine skin exam. Rough spot on left shoulder. Hx: BCC SUBJECTIVE: HPI: Missy Weems is a 77 year old female who is an established patient seen for follow-up full skin check. Patient last visit on 12/20/22 C/o rough spot L shoulder x years. Not bothersome C/o blackhead on R upper back x years, embarrassed by family members commenting or picking at the area. Requests removal. Hx of BCC nasal bridge 2009 +hx sunbathing and tanning bed use in winter months. Does not wear sunscreen +hx blistering sunburns REVIEW OF SYSTEMS: See HPI- all other findings negative Constitutional: (-) fever, chills, sweats, weight loss Cardiovascular: (-) lower extremity edema Skin: (-) no rash or new or changing moles or skin lesions MEDICA TIONS: Current Outpatient Medications Medication Sig Dispense Refill Estradiol 0.1 MG/GM Vaginal Cream (Estrace) Apply 1/2 g topically to affected area in the morning. 42.5 g 6 Gabapentin 400 MG Oral Capsule (Neurontin) Take 1 Capsule by mouth in the morning and 1 Capsule at noon and 1 Capsule before bedtime. 270 Capsule 3 Apixaban 5 MG Oral Tablet (Eliquis) TAKE [...] daily as needed. Medical Marijuana Capsules Nystatin-Triamcinolone 293333-7.1 UNIT/GM-% External Cream (Mycolog) Apply to affected [...] MINUTES AFTER TAKING TABLET 15 Tablet 1 No current facility-administered medications for this visit. ALLERG Y: Compazine, Naproxen sodium, Adhesive tape, Latex, Levofloxacin, Lovenox [enoxaparin sodium], Macrobid [nitrofurantoin], Morphine, Penicillins, and Ibuprofen OBJECTIVE: GEN: Healthy, alert, no distress, appears oriented, pleasant and cooperative. PSYCH: Appropriate mood and affect, alert SKIN: Detailed exam of scalp, hair, face including lids and lips, ears, neck, chest, back, abdomen,buttocks, bilateral upper extremities and bilateral lower extremities including the nails and digits was completed and are within normal limits with the following exceptions: 1. Yellowish nodule with central keratin-filled punctum R upper back 2. Scattered benign appearing lesions over examined skin including scattered benign and relatively monomorphic appearing melanocytic nevi, waxy flesh- colored, greyish brown benign and non-inflamed appearing stuck-on papules and plaques, benign and uniform appearing brown macules and patches in sun exposed areas, bright red benign appearing dome-shaped papules and macules and solar elastosis and evident photodamage of sunexposed skin. 3. Scar nasal bridge ASSESSMENT/PLAN: 1. Epidermoid cyst - discussed benign nature of condition - pt requests removal- discussed punch excision procedure with pt- will schedule, non-urgently. 2. Seborrheic Keratosis -Reassured of the benign nature of lesion -Discussed with patient that they may get more of these lesions in the future -If there are any lesions that become irritated, bleed, or painful to return to clinic for evaluation -No current treatment necessary at this time 3. Photodamage - The signs and symptoms of skin cancer were reviewed and the patient was advised to practice sun protection and sun avoidance, use daily sunscreen, and perform regular self skin exams. 4. H/o nonmelanoma skin cancer - No evidence of disease, continue to monitor 5. Routine Skin Examination For Skin Cancer -Educated patient on ABCDE's. -Advised patient that if they notice any of these changes to please call for a follow-up appointment as soon as possible. -Counseled patient on criteria for good sunscreen including SPF 30 or higher, broad spectrum (UVA and UVB) and water resistant (up to 40 to 80 minutes). Advised to reapply sunscreen every 2 hours andafter swimming or profuse sweating. Advised to wear protective clothing when out in the sun including long sleeved shirt, pants, wide-brimmed hat and sunglasses. Informed to seek shade during 10 AM to 4 PM when the sun's rays are the strongest. -Advised to perform routine (at least once a year) skin self-examinations. Advised to contact theirdermatologist immediately if they notice any new or changing skin lesions. Patient alone today. Follow-up: 1 year FBSE, pt preference and appt for punch excision of EIC Photos taken, patient consented to photos taken. Applicable photos (if any) and chart reviewed by Dr. Denys Sawant The patient was encouraged to contact me with any further questions or concerns. Amy Mckeon PA-C 02/05/24 documented in this encounter Nursing Notes * Verna Longoria LPN - 02/05/2024 8:36 AM EDT Patient identified by name and date. Chief Complaint Patient presents with Skin Check Routine skin exam. Rough spot on left shoulder. Hx: BCC documented in this encounter Plan of Treatment Upcoming Encounters Date Type Department Care Team (Late st Contact Info) Description 02/22/2024 1:50 PM EDT Office Visit Dermatology [facility] [address] [place] [address] Amy Mckeon PA-C [facility] [place] [address] 02/26/2024 4:00 PM EDT Office Visit Urology, [facility] [address] [facility] [place] [address] Salvador Mireles MD [address] [place] [address] 03/14/2024 12:50 PM EDT Hospital Encounter OR [facility], Operating Room [facility] [address] [place] [phone] Ness Lundy MD [address] [place] [address] 03/14/2024 12:50 PM EDT - 03/14/2024 1:10 PM EDT Surgery OR [facility], Operating Room [facility] [address] [facility] [place] [phone] Ness Lundy MD [address] [place] [address] INJECTION SACROILIAC JOINT 05/14/2024 1:00 PM EST Office Visit Allergy/Immunology [facility] [address] [place] [address] Michael Vieira MD [address] [place] [address] 06/20/2024 12:00 PM EST Office Visit Sleep Disorders Ctr [facility] [address] [facility] [place] [phone] Edilma Brown CRNP [address] [facility] [place] [address] 07/10/2024 12:40 PM EST Office Visit Family Practice [address], [place] [address] [place] [phone] Jcarlos Laureano PA-C [address] [place] [id number] 09/18/2024 2:30 PM EDT Nurse Only Ancillary [address], [place] [address] [place] [address] [place], Nurse Annual Wellness [place] [address] [place] [address] 02/04/2025 12:50 PM EDT Office Visit Dermatology [address], [place] [address] [place] [address] Amy Mckeon PA-C [address] [place] [address] Scheduled Procedures Name Priority Associated Diagnoses Date/Ti me INJECTION SACROILIAC JOINT Inflammation of sacroiliac joint (HCC) 03/14/2024 12:50 PM EDT Health Maintenance Due Date Last Done Comments Zoster Vaccines (2 of 3) 11/17/2013 09/22/2013 COVID-19 Vaccine ( season) 2023 05/10/2021, 08/25/2020, 07/28/2020 Influenza Vaccine [...] D LEVEL ONCE IN A LIFETIME-USE SMARTSET# [id number] Completed 04/30/2023, 12/21/2021, 09/13/2020, Additional history exists [...] study not interpreted or resulted by a [email or web address] or [email or web address] contracted radiologist. Amy Mckeon PA-C RADIOLOGY ( [facility]) documented in this encounter Visit Diagnoses Diagnosis Epidermoid cyst- Primary Sebaceous cyst Seborrheic keratosis Other seborrheic keratosis Diffuse photodamage of skin Other chronic dermatitis due to solar radiation History of nonmelanoma skin cancer Personal history of other malignant neoplasm of skin Skin exam, screening for cancer Screening for malignant neoplasm of the skin Inflammation of sacroiliac joint (HCC) Sacroiliitis, not elsewhere classified documented in this encounter Care Teams Cyber Systems Operations Specialist Relationship Specialty Start Date End Date Jcarlos Laureano PA-C [address] [facility] [place] [id number] PCP - General Physician Water Treatment Plant Operator 07/10/23 documented as of this encounter
--- OUTSIDE RECORDS SUMMARY | 2024-03-06 04:06 | External Medical Summary | Summary of Care ---
Author Name Unknown Organization [facility] Address [address] [facility] [place] [address] Phone [phone] Care Team Providers Care Personal Property Assessor Name Role Phone Jcarlos Laureano PA-C Primary Care Provide r Reason for Visit * Reason Comments Medication Refill Encounter Details Date Type Department Care Team (Late st Contact Info) Description 02/09/2024 Refill Urology Flory Russo [address] [place] [address] Salvador Bautista MD [address] [place] [address] Vaginal atrophy Allergies Active Allergy Reactions Criticality Noted Date [...] as of this encounter (statuses as of 02/11/2024) Medications Medication Sig Dispensed Refills Start Date End Date Status Gabapentin 400 MG Oral Capsule (Neurontin)Indicatio ns:Sacroiliitis, not elsewhere classified (HCC) Take 1 Capsule by mouth in the morning and 1 Capsule at noon and 1 Capsule before bedtime. 270 Capsule 3 02/19/2023 Active Apixaban 5 MG Oral Tablet (Eliquis)Indications :HTN, goal below 150/90,Edema TAKE ONE TABLET BY MOUTH EVERY MORNING AND TAKE ONE TABLET BY MOUTH AT BEDTIME 200 Tablet 3 04/17/2023 Active Folic Acid 1 MG Oral TabletIndications:MT [...] 08/28/2023 Active Lisinopril 2.5 MG Oral Tablet (Prinivil)Indication [...] needed. Medical Marijuana Capsules Active Nystatin-Triamcinolo ne 616411-3.1 UNIT/GM-% External Cream (Mycolog)Indications :Yeast infection Apply [...] (BMI) of 36.0 to 36.9 in adult ([facility]) Inject 2 mg under the skin once [...] Active CPAP every night at bedtime. Active Sulfamethoxazole-Tri methoprim 800-160 MG Oral Tablet [...] TABLET 15 Tablet 1 01/21/2024 5 Active Estradiol 0.1 MG/GM Vaginal Cream (Estrace)Indications :Vaginal atrophy Apply 1/2 g topically to affected area in the morning. 42.5 g 6 02/11/2024 Active Estradiol 0.1 MG/GM Vaginal Cream (Estrace)Indications :Vaginal atrophy Apply 1/2 g topically to affected area in the morning. 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 Increased risk for Inherited Arrhythmias. Please click [...] as of this encounter (statuses as of 02/11/2024) Resolved Problems Problem Noted Date Diagnosed Date [...] 03/13/2018 Overview: 02/14/18 While on vaction in [place] Facial laceration 02/21/2018 06/27/2021 Overview: 02/14/18 While on vaction in [place] Closed fracture of nasal bones 02/21/2018 06/27/2021 Overview: 02/14/18 While on vaction in [place] Fall on or from sidewalk curb 02/21/2018 03/13/2018 Overview: 02/14/18 While on vaction in [place] History of nonmelanoma skin cancer 06/12/2017 12/20/2017 Overview: BCC nasal bridge 12/02 Trochanteric bursitis of right hip 05/16/2017 12/20/2017 Hx of non anemic vitamin B12 deficiency 04/02/2017 12/20/2017 History of laminectomy 07/26/201612/20 HTN, goal below 150/90 12/24/201508/21 Bronchospasm, exercise-induced 10/07/2012 06/02/2016 Genetic Sleep Disorder [facility]ea [facility] Other*[id number] 10/19/2011 01/20/2016 Other pulmonary embolism and infarction [...] as of this encounter (statuses as of 02/11/2024) Immunizations Name Administration Dates Next Due COVID-19 [...] No 09/12/2023 Does the household have a [facility] source of [...] on file documented as of this encounter Miscellaneous Notes * Telephone Encounter - Salvador Bautista MD - 02/11/2024 2:57 PM EDTSigned Prescriptions: Disp Refills Estradiol 0.1 MG/GM Vaginal Cream (Estrace)42.5 g 6 Sig: Apply 1/2 g topically to affected area in the morning. Authorizing Provider: SALVADOR BAUTISTA * Telephone Encounter - Jina Vo CPhT - 02/11/2024 1:58 PM EDT [facility] calling to check on status of estradiol vag cream. Caller can be reached at [phone]. Thank you, Jina Vo CPhT Estimating Engineer III [facility] [address] [place] [address], [address] [phone] * Telephone Encounter - Devi Riddle COA - 02/11/2024 10:17 AM EDTPending Prescriptions: Disp Refills Estradiol 0.1 MG/GM Vaginal Cream (Estrace)42.5 g 6 Sig: Apply 1/2 g topically to affected area in the morning. documented in this encounter Plan of Treatment Upcoming Encounters Date Type Department Care Team (Late st Contact Info) Description 02/22/2024 1:50 PM EDT Office Visit Dermatology [address] [address] Amy Mckeon PA-C [address] [facility] [place] [id number] 02/26/2024 4:00 PM EDT Office [facility] [place] [address] Salvador Bautista MD [address] [place] [address] 03/14/2024 12:50 PM EDT Hospital Encounter OR [facility], Operating Room [facility] [address] [place] [phone] Ness Lundy MD [address] [place] [address] 03/14/2024 12:50 PM EDT - 03/14/2024 1:10 PM EDT Surgery OR [facility], Operating Room [facility] [address] [place] [phone] Ness Lundy MD [address] [place] [address] INJECTION SACROILIAC JOINT 05/14/2024 1:00 PM EST Office Visit Allergy/Immunology [facility] [place] [address] [place] [address] Michael Vieira MD [address] [place] [address] 06/20/2024 12:00 PM EST Office Visit Sleep Disorders Ctr [facility] [address] [facility] [place] [phone] Edilma Brown CRNP [address] [place] [address] 07/10/2024 12:40 PM EST Office Visit Family Practice [address], [place] [address] [place] [address] Jcarlos Laureano PA-C [address] [place] [address] 09/18/2024 2:30 PM EDT Nurse Only Ancillary [address], [place] [address] [place] [address] [place], Nurse [facility] [place] [address] [place] [id number] 02/04/2025 12:50 PM EDT Office Visit Dermatology [address], [place] [address] [place] [address] Amy Mckeon PA-C [address] [place] [address] Scheduled Procedures Name Priority Associated Diagnoses Date/Ti [...] D LEVEL ONCE IN A LIFETIME-USE SMARTSET# [id number] Completed 04/30/2023, 12/21/2021, 09/13/2020, Additional history exists [...] of this encounter Visit Diagnoses Diagnosis Vaginal atrophy Postmenopausal atrophic vaginitis Inflammation of sacroiliac joint (HCC) Sacroiliitis, not elsewhere classified documented in this encounter Care Teams Personal Property Assessor Relationship Specialty Start Date End Date Jcarlos Laureano PA-C [address] [facility] [place] [phone] PCP - General Physician Doll Dresser 07/10/23 documented as of this encounter
--- OUTSIDE RECORDS SUMMARY | 2024-03-06 04:06 | External Medical Summary | Summary of Care ---
Author Name Unknown Organization [facility] Address [address] [facility] [place] [address] Phone [phone] Care Team Providers Care Director Of Pulmonary Unit Name Role Phone Jcarlos Mcpherson PA-C Primary Care Provide r Reason for Visit * Reason Onset Date Comments Medication Refill 02/28/2024 Encounter Details Date Type Department Care Team (Late st Contact Info) Description 02/28/2024 Refill Family Practice [facility], [place] [address] [facility] [place] [address] Jcarlos Mcpherson PA-C [address] [facility] [place] [address] Class 2 severe obesity due to excess calories with serious comorbidity and body mass index (BMI) of 36.0 to 36.9 in adult (HCC) Allergies Active Allergy Reactions Criticality Noted Date [...] as of this encounter (statuses as of 03/01/2024) Medications Medication Sig Dispensed Refills Start Date [...] needed. Medical Marijuana [place]apsules [place] [address]-2.1 UNIT/GM-% External Cream (Mycolog)Indications :Yeast infection Apply to affected area two times per day for 1 week 15 g 2 11/22/2023 Active Latanoprost 0.005 % Ophthalmic Solution (Xalatan) Instill 1 Drop into both eyes at bedtime. 10 mL 3 11/23/2023 Active Tamsulosin HCl 0.4 MG Oral Capsule (Flomax) TAKE ONE CAPSULE BY MOUTH EVERY MORNING 90 Capsule 3 11/29/2023 Active Omeprazole 40 MG Oral Capsule Delayed [...] the morning. 42.5 g 6 02/11/2024 Active Gabapentin 400 MG Oral Capsule (Neurontin)Indicatio ns:Sacroiliitis, not elsewhere classified (HCC) Take 1 Capsule by mouth in the morning and 1 Capsule at noon and 1 Capsule before bedtime. 270 Capsule 3 02/26/2024 Active Sulfamethoxazole-Tri methoprim 400-80 MG Oral Tablet (Bactrim) Take 1 Tablet by mouth in the morning. 90 Tablet 3 02/26/2024 Active Ozempic (2 MG/DOSE) 8 MG/3ML Subcutaneous Solution Pen-injector (Semaglutide (2 MG/DOSE))Indications :Class 2 severe obesity due to excess calories with serious comorbidity and body mass index (BMI) of 36.0 to 36.9 in adult (HCC) Inject 2 mg under the skin once a week. 9 mL 1 03/01/2024 Active Ozempic (2 MG/DOSE) 8 MG/3ML Subcutaneous Solution Pen-injector (Semaglutide (2 MG/DOSE))Indications :Class 2 severe obesity due to excess calories with serious comorbidity and body mass index (BMI) of 36.0 to 36.9 in adult ([facility]) Inject 2 mg under the skin once a week. 3 mL 2 12/12/2023 4 Discontinu ed(Refill) documented as of this encounter (statuses as of 03/01/2024) Active Problems Problem Noted Date Diagnosed Date Impingement syndrome of left shoulder 09/05/2022 Sacroiliitis, not elsewhere classified 3 Pure hypercholesterolemia 06/29/2022 Primary open-angle glaucoma, bilateral, mild sta ge 05/04/2022 Morbid obesity 05/04/2022 Monoallelic mutation of KCNQ1 gene 12/15/2021 Overview: likely pathogenic KCNQ1 gene variant (c.1081 C>T, p.(Q361*)) detected via [employer]. Increased risk for Inherited Arrhythmias. Please click [...] as of this encounter (statuses as of 03/01/2024) Resolved Problems Problem Noted Date Diagnosed Date [...] 03/13/2018 Overview: 02/14/18 While on vaction in [place] Facial laceration 02/21/2018 06/27/2021 Overview: 02/14/18 While on vaction in [place] Closed fracture of nasal bones 02/21/2018 06/27/2021 Overview: 02/14/18 While on vaction in [place] Fall on or from sidewalk curb 02/21/2018 03/13/2018 Overview: 02/14/18 While on vaction in [place] History of nonmelanoma skin cancer 06/12/2017 12/20/2017 Overview: BCC nasal bridge 12/02 Trochanteric bursitis of right hip 05/16/2017 12/20/2017 Hx of non anemic vitamin B12 deficiency 04/02/2017 12/20/2017 History of laminectomy 07/26/201612/20 HTN, goal below 150/90 12/24/201508/21 Bronchospasm, exercise-induced 10/07/2012 06/02/2016 Genetic Sleep Disorder [facility]ea [facility] Other*[id number] 10/19/2011 01/20/2016 Other pulmonary embolism and infarction [...] as of this encounter (statuses as of 03/01/2024) Immunizations Name Administration Dates Next Due COVID-19 [...] encounter Miscellaneous Notes * Telephone Encounter - Antelmo Thomason RPh - 03/01/2024 6:10 AM EDTSigned Prescriptions: Disp Refills Ozempic (2 MG/DOSE) 8 MG/3ML Subcutaneous *9 mL 1 Sig: Inject 2 mg under the skin once a week. Authorizing Provider: JCARLOS MCPHERSON Ordering User: ANTELMO THOMASON * Telephone Encounter - Celena Dubon [employer] - 02/28/2024 10:32 AM EDT Patient is requesting a 90-day supply, pre-edited RXs as such. Please review and approve if appropriate. Pending Prescriptions: Disp Refills Ozempic (2 MG/DOSE) 8 MG/3ML Subcutaneous*9 mL 1 Sig: Inject 2 mg under the skin once a week. Last Visit: 12/18/2023 (in office), Visit date not found (telemedicine) 07/10/2024 If no future appointments scheduled, and last appointment is greater than a year ago, please schedule patient for an appointment Last date the medication was ordered: 12/12/2023 Patient Phone Numbers Labs: Lab Results Component Value Date/Time CREAT 0.6 01/07/2024 07:16 AM CREAT 0.8 03/09/2020 08:28 AM POTASSIUM 4.2 01/07/2024 07:16 AM POTASSIUM 4.2 03/09/2020 08:28 AM TSH 1.04 04/30/2023 02:43 PM TSH 3.33 03/09/2020 08:28 AM LDL 62 01/07/2024 07:16 AM LDL 140 (H) 04/30/2023 02:43 PM LDL 115 03/09/2020 08:28 AM LDL NOT APPLICABLE 03/09/2020 08:28 AM ALT 19 04/30/2023 02:43 PM ALT 35 03/09/2020 08:28 AM HGBA1C 5.5 01/07/2024 07:16 AM HGBA1C 5.4 04/19/2016 10:20 AM documented in this encounter Plan of Treatment Upcoming Encounters Date Type Department Care Team (Late st Contact Info) Description 03/14/2024 12:50 PM EDT Hospital Encounter [facility], Operating Room [facility] [address] [place] [phone] Ness Lundy MD [address] [place] [address] 03/14/2024 12:50 PM EDT - 03/14/2024 1:10 PM EDT Surgery OR [facility], Operating Room [facility] [address] [place] [phone] Ness Lundy MD [address] [place] [address] INJECTION SACROILIAC JOINT 05/14/2024 1:00 PM EST Office Visit Allergy/Immunology [facility] [address] [facility] [place] [address] Michael Vieira MD [address] [facility] [place] [address] 07/10/2024 12:40 PM EST Office Visit Family Practice [place] [address] [place] [address] Jcarlos Mcpherson PA-C [address] [place] [address] 09/09/2024 3:00 PM EDT Office Visit Urology, [facility] [address] [facility] [place] [address] Salvador Mireles MD [address] [place] [address] 09/18/2024 2:30 PM EDT Nurse Only Ancillary [address], [place] [address] [place] [address] [place], Nurse Annual Wellness [facility] [address] [place] [address] 02/04/2025 12:50 PM EDT Office Visit Dermatology [facility], [place] [address] [place] [address] Amy Mckeon PA-C [address] [place] [address] Scheduled Procedures Name Priority Associated Diagnoses Date/Ti [...] D LEVEL ONCE IN A LIFETIME-USE SMARTSET# [id number] Completed 04/30/2023, 12/21/2021, 09/13/2020, Additional history exists [...] as of this encounter Visit Diagnoses Diagnosis Class 2 severe obesity due to excess calories with serious comorbidity and body mass index (BMI) of 36.0 to 36.9 in adult (HCC) Inflammation of sacroiliac joint (HCC) Sacroiliitis, not elsewhere classified documented in this encounter Care Teams Director Of Pulmonary Unit Relationship Specialty Start Date End Date Jcarlos Mcpherson PA-C [address] [facility] [place] [address] PCP - General Physician Bilingual Interpreter 07/10/23 documented as of this encounter
--- OUTSIDE RECORDS SUMMARY | 2024-03-06 04:06 | External Medical Summary | Summary of Care ---
Author Name Unknown Organization [facility] Address [address] [facility] [place] [address] Phone [phone] Care Team Providers Care Cardiac Nurse Specialist Name Role Phone Jcarlos Mcpherson PA-C Primary Care Provide r Reason for Visit * Reason Comments Medication Refill Encounter Details Date Type Department Care Team (Late st Contact Info) Description 02/23/2024 Refill Family Practice [facility], [place] [address] [facility] [place] [id number] Roxi Bueno, DO [address] [place] [address] Sacroiliitis, not elsewhere classified (HCC)* Allergies Active Allergy Reactions Criticality Noted Date [...] needed. Medical Marijuana Capsules Active Nystatin-Triamcinolo ne 624161-4.1 UNIT/GM-% External Cream (Mycolog)Indications :Yeast infection Apply [...] before bedtime. 270 Capsule 3 02/26/2024 Active Gabapentin 400 MG Oral Capsule (Neurontin)Indicatio ns:Sacroiliitis, not elsewhere classified (HCC) Take 1 Capsule by mouth in the morning and 1 Capsule at noon and 1 Capsule before bedtime. 270 Capsule 3 02/19/2023 4 Discontinu ed(Refill) documented as of this encounter (statuses as of 02/26/2024) Active Problems Problem Noted Date Diagnosed Date Impingement syndrome of left shoulder 09/05/2022 Sacroiliitis, not elsewhere classified 3 Pure hypercholesterolemia 06/29/2022 Primary open-angle glaucoma, bilateral, mild sta ge 05/04/2022 Morbid obesity 05/04/2022 Monoallelic mutation of KCNQ1 gene 12/15/2021 Overview: likely pathogenic KCNQ1 gene variant (c.1081 C>T, p.(Q361*)) detected via [employer]. Increased risk for Inherited Arrhythmias. Please click [...] 03/13/2018 Overview: 02/14/18 While on vaction in [place] Facial laceration 02/21/2018 06/27/2021 Overview: 02/14/18 While on vaction in [place] Closed fracture of nasal bones 02/21/2018 06/27/2021 Overview: 02/14/18 While on vaction in [place] Fall on or from sidewalk curb 02/21/2018 03/13/2018 Overview: 02/14/18 While on vaction in [place] History of nonmelanoma skin cancer 06/12/2017 12/20/2017 Overview: BCC nasal bridge 12/02 Trochanteric bursitis of right hip 05/16/2017 12/20/2017 Hx of non anemic vitamin B12 deficiency 04/02/2017 12/20/2017 History of laminectomy 07/26/201612/20 HTN, goal below 150/90 12/24/201508/21 Bronchospasm, exercise-induced 10/07/2012 06/02/2016 Genetic Sleep Disorder Resea [facility] Other*[id number] 10/19/2011 01/20/2016 Other pulmonary embolism and infarction [...] on file Are you (or your family) coopre eless or worried that you might be [...] encounter Miscellaneous Notes * Telephone Encounter - Jcarlos Mcpherson PA-C - 02/26/2024 9:39 AM EDT Signed Prescriptions: Disp Refills Gabapentin 400 MG Oral Capsule (Neurontin) 270 Ca*3 Sig: Take 1 Capsule by mouth in the morning and 1 Capsule at noon and 1 Capsule before bedtime. Authorizing Provider: JCARLOS MCPHERSON * Telephone Encounter - Mariah Hannah CCMA - 02/26/2024 8:53 AM EDTPending Prescriptions: Disp Refills Gabapentin 400 MG Oral Capsule (Neurontin) 270 Ca*3 Sig: Take 1 Capsule by mouth in the morning and 1 Capsule at noon and 1 Capsule before bedtime. * Telephone Encounter - Mariah Hannah CCMA - 02/26/2024 8:52 AM EDT Pending Prescriptions: Disp Refills Gabapentin 400 MG Oral Capsule (Neurontin)270 Ca*3 Sig: Take 1 Capsule by mouth in the morning and 1 Capsule at noon and 1 Capsule before bedtime. Last Visit: 12/18/2023 (in office), Visit date not found (telemedicine) Next Visit: 07/10/2024 Last date the medication was ordered: 02/19/2023 Patient Active Problem List Diagnosis Lumbar spinal stenosis LUIS (obstructive sleep apnea) SIMS (nonalcoholic steatohepatitis) DIAN (generalized anxiety disorder) Dyslipidemia BPPV (benign paroxysmal positional vertigo) Primary osteoarthritis of both knees Gastroesophageal reflux disease with esophagitis Presence of IVC filter Methylenetetrahydrofolate reductase (MTHFR) deficiency ([facility]) Seasonal allergic rhinitis due to pollen Major depressive disorder with single episode, in full remission ([facility]) 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 Recurrent UTI High risk for fracture due to osteoporosis by DEXA scan Vaginal atrophy Medical marijuana use Stress incontinence of urine Monoallelic mutation of KCNQ1 gene Primary open-angle glaucoma, bilateral, mild stage Morbid obesity ([facility]) Sacroiliitis, not elsewhere classified ([facility]) Pure hypercholesterolemia Impingement syndrome of left shoulder Labs: Lab Results Component Value Date/Time CREATININE - [facility] 0.6 01/07/2024 07:16 AM CREATININE - [facility] 0.8 03/09/2020 08:28 AM CREATININE, RANDOM URINE - [facility] 80 09/27/2022 02:55 PM CREATININE-OUTSIDE LAB 0.82 07/27/2015 12:00 AM Lab Results Component Value Date/Time POTASSIUM - [facility] 4.2 01/07/2024 07:16 AM POTASSIUM - [facility] 4.2 03/09/2020 08:28 AM POTASSIUM-OUTSIDE LAB 3.6 07/27/2015 12:00 AM Lab Results Component Value Date/Time TSH - [facility] 1.04 04/30/2023 02:43 PM TSH - [facility] 3.33 03/09/2020 08:28 AM Lab Results Component Value Date/Time LDL CHOLESTEROL (CALCULATED) - [facility] 140 (H) 04/30/2023 02:43 PM LDL CHOLESTEROL (CALCULATED) - [facility] 76 09/27/2022 02:55 PM LDL CHOLESTEROL (CALCULATED) - [facility] 115 03/09/2020 08:28 AM LDL CHOLESTEROL (CALCULATED) - [facility] 153 (H) 10/28/2019 10:48 AM LDL CHOLESTEROL (DIRECT MEASURE) - [facility] 62 01/07/2024 07:16 AM LDL CHOLESTEROL (DIRECT MEASURE) - [facility] NOT APPLICABLE 03/09/2020 08:28 AM LDL CHOLESTEROL (DIRECT MEASURE) - [facility] NOT APPLICABLE 10/28/2019 10:48 AM LDL CHOLESTEROL (DIRECT MEASURE) - [facility] 130 (H) 05/26/2013 01:53 PM Lab Results Component Value Date/Time ALT - [facility] 19 04/30/2023 02:43 PM ALT - [facility] 35 03/09/2020 08:28 AM ALT-OUTSIDE LAB 38 07/27/2015 12:00 AM Hemoglobin AIC Results: Lab Results Component Value Date/Time HEMOGLOBIN A1C - [facility] 5.5 01/07/2024 07:16 AM HEMOGLOBIN A1C - [facility] 5.2 04/30/2023 02:43 PM HEMOGLOBIN A1C - [facility] 5.8 (H) 09/27/2022 02:55 PM HEMOGLOBIN A1C - [facility] 5.4 04/19/2016 10:20 AM HEMOGLOBIN A1C - [facility] 5.9 08/09/2015 09:13 AM HEMOGLOBIN A1C - [facility] 6.0 04/23/2015 12:29 PM * Telephone Encounter - Karena Billy - 02/23/2024 5:38 AM EDTPending Prescriptions: Disp Refills Gabapentin 400 MG Oral Capsule (Neurontin) 270 Ca*3 Sig: Take 1Capsule by mouth in the morning and 1 Capsule at noon and 1 Capsule before bedtime. documented in this encounter Plan of Treatment Upcoming Encounters Date Type Department Care Team (Late st Contact Info) Description 02/26/2024 4:00 PM EDT Office Visit Urology, [facility] [address] [place] [address] Salvador Mireles MD [address] [place] [address] 03/14/2024 12:50 PM EDT Hospital Encounter OR [facility], Operating Room [facility] [address] [place] [phone] Ness Lundy MD [address] [place] [address] 03/14/2024 12:50 PM EDT - 03/14/2024 1:10 PM EDT Surgery [facility] [place] [phone] Ness Lundy MD [address] [place] [address] INJECTION SACROILIAC JOINT 05/14/2024 1:00 PM EST Office Visit Allergy/Immunology [facility] [address] [place] [address] Michael Vieira MD [address] [facility] [place] [address] 07/10/2024 12:40 PM EST Office Visit Family Practice [address], [place] [address] [place] [address] Jcarlos Mcpherson PA-C [address] [place] [address] 09/18/2024 2:30 PM EDT Nurse Only Ancillary [address], [place] [address] [place] [address] [place], Nurse Annual Wellness Cold [address] [place], [place] [address] 02/04/2025 12:50 PM EDT Office Visit Dermatology [address], [place] [address] [place] [address] Amy Mckeon PA-C [address] [place] [address] Scheduled Procedures Name Priority Associated Diagnoses Date/Ti me INJECTION SACROILIAC JOINT Inflammation of sacroiliac joint (HCC) 03/14/2024 12:50 PM EDT Health Maintenance Due Date Last Done Comments Zoster Vaccines (2 of 3) 11/17/2013 09/22/2013 COVID-19 Vaccine (4 - season) 2024 05/10/2021, 08/25/2020, 07/28/2020 Influenza [...] D LEVEL ONCE IN A LIFETIME-USE SMARTSET# [id number] Completed 04/30/2023, 12/21/2021, 09/13/2020, Additional history exists [...] as of this encounter Visit Diagnoses Diagnosis Sacroiliitis, not elsewhere classified (HCC)- Primary Sacroiliitis, not elsewhere classified Inflammation of sacroiliac joint (HCC) Sacroiliitis, not elsewhere classified documented in this encounter Care Teams Cardiac Nurse Specialist Relationship Specialty Start Date End Date Jcarlos Mcpherson PA-C [address] [facility] [place] [address] PCP - General Physician Presales Consultant 07/10/23 documented as of this encounter
--- OUTSIDE RECORDS SUMMARY | 2024-03-06 04:07 | External Medical Summary | Summary of Care ---
Author Name Unknown Organization [facility] Address [address] [facility] [place] [address] Phone [phone] Care Team Providers Care Veterinary Pharmacologist Name Role Phone Jcarlos Laureano PA-C Primary Care Provide r Reason for Visit * Reason Onset Date Comments Advice 01/09/2024 Abnormal lab Encounter Details Date Type Department Care Team (Late st Contact Info) Description 01/09/2024 Telephone Family Practice [place] [facility] [address] [facility] [place] [address] Jcarlos Laureano PA-C [address] [facility] [place] [address] Advice (Abnormal lab/) Allergies Active Allergy Reactions Criticality Noted Date [...] as of this encounter (statuses as of 01/10/2024) Medications Medication Sig Dispensed Refills Start Date End Date Status Alendronate Sodium 70 MG Oral Tablet (Fosamax)Indications :Age-related osteoporosis without current pathological fracture TAKE ONE TABLET BY MOUTH ONCE A WEEK WITH 8 OZ OF WATER 30 MINUTES BEFORE FIRST MEAL OF THE DAY. REMAIN UPRIGHT FOR 30 MINUTES AFTER TAKING TABLET 15 Tablet 3 3 01/29/20 24 Active Estradiol 0.1 MG/GM Vaginal Cream (Estrace)Indications :Vaginal atrophy Apply 1/2 g topically to affected area in the morning. 42.5 g 6 3 Active Gabapentin 400 MG Oral Capsule (Neurontin)Indicatio ns:Sacroiliitis, not elsewhere classified (HCC) Take 1 Capsule by mouth in the morning and 1 Capsule at noon and 1 Capsule before bedtime. 270 Capsule 3 3 Active Apixaban 5 MG Oral Tablet (Eliquis)Indications [...] needed. Medical Marijuana Capsules Active Nystatin-Triamcinolo ne 827407-1.1 UNIT/GM-% External Cream (Mycolog)Indications :Yeast infection Apply [...] 7 days. Until gone. 14 Tablet 4 01/17/20 24 Active Sulfamethoxazole-Tri methoprim 400-80 MG Oral Tablet (Bactrim) Take 1 Tablet by mouth at bedtime. 90 Tablet 3 3 01/10/20 24 Discontinued documented as of this encounter (statuses as of 01/10/2024) Active Problems Problem Noted Date Diagnosed Date Impingement syndrome of left shoulder 09/05/2022 Sacroiliitis, not elsewhere classified 3 Pure hypercholesterolemia 06/29/2022 Primary open-angle glaucoma, bilateral, mild sta ge 05/04/2022 Morbid obesity 05/04/2022 Monoallelic mutation of KCNQ1 gene 12/15/2021 Overview: likely pathogenic KCNQ1 gene variant (c.1081 C>T, p.(Q361*)) detected via Exmovere. Increased risk for Inherited Arrhythmias. Please click [...] as of this encounter (statuses as of 01/10/2024) Resolved Problems Problem Noted Date Diagnosed Date [...] exercise-induced 10/07/2012 06/02/2016 Genetic Sleep Disorder [facility] Other*[id number] 10/19/2011 01/20/2016 Other pulmonary embolism and infarction [...] as of this encounter (statuses as of 01/10/2024) Immunizations Name Administration Dates Next Due COVID-19 [...] Miscellaneous Notes * Telephone Encounter - Salvador Mireles MD - 01/10/2024 4:22 PM EDT Patient should drop off urine culture, can increase Bactrim twice daily after this is complete. Thanks, HM * Telephone Encounter - Cathi Higgins, RN - 01/10/2024 11:51 AM EDT Spoke to pt and she told us she already takes one Bactrim at everyday as a preventative measure. Spoke with Jcarlos about this and he asked to have this message sent to Urology for Dr Mireles to reviewand recommend treatment to the pt. Pt is aware this is being passed on and she will expect to hear back from the Urology dept * Telephone Encounter - Jcarlos Laureano PA-C - 01/10/2024 11:46 AM EDT Yes should do culture, and I will otherwise send in bactrim. Thank you. * Telephone Encounter - Radha Anthony LPN - 01/10/2024 9:25 AM EDT Do you want a culture ordered? Do you want to treat? * Telephone Encounter - Aruna Quiroz OSA - 01/10/2024 9:16 AM EDT Pt calling, states her labs are showing in her My chart and thinks she has UTI. She wants to speak with the nurse when possible. * Telephone Encounter - Christy Berry MED ASSIST - 01/09/2024 3:27 PM EDT Please review * Telephone Encounter - Patricia De Santiago OSA - 01/09/2024 2:39 PM EDT Who is Requesting Test Results: PT Primary Care Provider : Jcarlos Laureano PA-C Tests Results Requested : urine culture Date of Test : 01/07/24 Location of Test: [facility] Ordering Provider: Jeff Laureano Patient has been made aware that the turnaround time for test results are typically as follows: Laboratory results = within 2-3 days ([facility]), 3-5 days (Non[facility], ie. [facility]) Urine Cultures = within 2-3 days depending on growth within the culture Pathology results (biopsy results/PAP) = 1-2 weeks Radiology results = about 1 week Cologuard results = within 2 weeks from the shipment date COVID testing = about 24 hours documented in this encounter Plan of Treatment Upcoming Encounters Date Type Department Care Team (Late st Contact Info) Description 01/21/2024 4:00 PM EDT Imaging Radiology [address] [facility] [place] [address] 02/05/2024 8:40 AM EDT Office Visit Dermatology [facility] [address] [place] [address] Amy Mckeon PA-C [address] [place] [address] 02/26/2024 4:00 PM EDT Office Visit Urology, [facility] [address] [facility] [place] [address] Salvador Mireles MD 27 [place] [address] 03/14/2024 12:50 PM EDT Hospital Encounter [facility], Operating Room [facility] [address] [place] [phone] Ness Lundy MD [address] [place] [address] 03/14/2024 12:50 PM EDT - 03/14/2024 1:10 PM EDT Surgery OR [facility], Operating Room [facility] 132 [facility] [place] [phone] Ness Lundy MD [address] [place] [address] INJECTION SACROILIAC JOINT 05/14/2024 1:00 PM EST Office Visit Allergy/Immunology [facility] [address] [place] [address] Michael Vieira MD [address] [place] [address] 06/20/2024 12:00 PM EST [facility] [place] [phone] Edilma Brown CRNP 132 [place] [address] 07/10/2024 12:40 PM EST Office Visit Family Practice [address], [place] [address] [place] [address] Jcarlos Laureano PA-C [address] [place] [address] 09/18/2024 2:30 PM EDT Nurse Only Ancillary [address], [place] [address] [place] [address] [place], Nurse Annual Wellness Cold [address] [place] [address] Scheduled Orders Name Type Priority Associated Diagnoses Orde r Schedule CULTURE, URINE, QUANTITATIVE Lab Routine Acute cystitis with hematuria Expected: 01/10/2024, Expires: 01/09/2025 Scheduled Procedures Name Priority Associated Diagnoses Date/Ti me INJECTION SACROILIAC JOINT Inflammation of sacroiliac joint (HCC) 03/14/2024 12:50 PM EDT Health Maintenance Due Date Last Done Comments Zoster Vaccines (2 of 3) 11/17/2013 09/22/2013 COVID-19 Vaccine (4 - season) 2023 05/10/2021, 08/25/2020, 07/28/2020 Influenza Vaccine (FLU shot) (#1) 2024 02/21/2023, 07/13/2022, 03/14/2021, Additional history exists Depression Monitoring 09/12/2024 09/13/2023 DXA Scan 12/06/2024 12/06/2022, 11/23, 07/13/2020, Additional history exists DTaP,Tdap,and Td Vaccines (3 - Td or Tdap) 12/23/2025 12/24/2015, 05/08/2006 Hepatitis C Screening Completed 10/07/2010 Pneumococcal Vaccine: 65+ Years Completed 10/15/2015, 04/04/2010 Albumin/Creatinine Ratio Discontinued 09/27/2022, 10/2022 VITAMIN D LEVEL ONCE IN A LIFETIME-USE SMARTSET# [id number] Completed 04/30/2023, 12/21/2021, 09/13/2020, Additional history exists [...] as of this encounter Visit Diagnoses Diagnosis Acute cystitis with hematuria- Primary Acute cystitis Inflammation of sacroiliac joint (HCC) Sacroiliitis, not elsewhere classified documented in this encounter Care Teams Veterinary Pharmacologist Relationship Specialty Start Date End Date Jcarlos Laureano PA-C [facility] [facility] [place] [address] PCP - General Physician Deputy Attorney General 07/10/23 documented as of this encounter
--- OUTSIDE RECORDS SUMMARY | 2024-03-06 04:07 | External Medical Summary | Summary of Care ---
Author Name Unknown Organization [facility] Address [address] [facility] [address] Phone [phone] Care Team Providers Care Attendant Sales Name Role Phone Jcarlos Laureano PA-C Primary Care Provide r Encounter Details Date Type Department Care Team (Late st Contact Info) Description 01/15/2024 Population Health External Data Unspecified Department Allergies Active Allergy Reactions Criticality Noted Date [...] as of this encounter (statuses as of 01/18/2024) Medications Medication Sig Dispensed Refills Start Date End Date Status Alendronate Sodium 70 MG Oral Tablet (Fosamax)Indications: Age-related osteoporosis without current pathological fracture TAKE ONE TABLET BY MOUTH ONCE A WEEK WITH 8 OZ OF WATER 30 MINUTES BEFORE FIRST MEAL OF THE DAY. REMAIN UPRIGHT FOR 30 MINUTES AFTER TAKING TABLET 15 Tablet 3 12/15/2022 4 Active Estradiol 0.1 MG/GM Vaginal Cream (Estrace)Indications: Vaginal [...] needed. Medical Marijuana Capsules Active Nystatin-Triamcinolon e 760190-8.1 UNIT/GM-% External Cream (Mycolog)Indications: Yeast infection Apply [...] Tablet before bedtime. 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 Increased risk for Inherited Arrhythmias. Please click [...] as of this encounter (statuses as of 01/18/2024) Resolved Problems Problem Noted Date Diagnosed Date [...] 03/13/2018 Overview: 02/14/18 While on vaction in [place] Facial laceration 02/21/2018 06/27/2021 Overview: 02/14/18 While on vaction in [place] Closed fracture of nasal bones 02/21/2018 06/27/2021 Overview: 02/14/18 While on vaction in [place] Fall on or from sidewalk curb 02/21/2018 03/13/2018 Overview: 02/14/18 While on vaction in [place] History of nonmelanoma skin cancer 06/12/2017 12/20/2017 Overview: BCC nasal bridge 12/02 Trochanteric bursitis of right hip 05/16/2017 12/20/2017 Hx of non anemic vitamin B12 deficiency 04/02/2017 12/20/2017 History of laminectomy 07/26/201612/20 HTN, goal below 150/90 12/24/201508/21 Bronchospasm, exercise-induced 10/07/2012 06/02/2016 Genetic Sleep Disorder [facility] Other*[id number] 10/19/2011 01/20/2016 Other pulmonary embolism and infarction [...] as of this encounter (statuses as of 01/18/2024) Immunizations Name Administration Dates Next Due COVID-19 [...] No 09/12/2023 Does the household have a [facility] source of income? (Household - for ages [...] Description 01/21/2024 4:00 PM EDT Imaging Radiology [facility] [address] [place] [address] 02/05/2024 8:40 AM EDT Office Visit Dermatology [place] [facility] [place] [address] [facility] [place] [address] Amy Mckeon PA-C [address] [facility] [place] [address] 02/26/2024 4:00 PM EDT Office Visit Urology, [facility] 132 [facility] [place] [address] Salvador Mireles MD 27 [place] [id number] 03/14/2024 12:50 PM EDT Hospital Encounter OR [facility], Operating Room [facility] [address] [place] [phone] Ness Lundy MD [address] [place] [address] 03/14/2024 12:50 PM EDT - 03/14/2024 1:10 PM EDT Surgery OR [facility], Operating Room [facility] [address] [place] [phone] Ness Lundy MD [address] [place] [address] INJECTION SACROILIAC JOINT 05/14/2024 1:00 PM EST Office Visit Allergy/Immunology [facility] 200 [facility] [place] [address] Michael Vieira MD 200 [facility] [place] [address] 06/20/2024 12:00 PM EST Office Visit Sleep Disorders Ctr [facility] 132 [facility] [place] [phone] Edilma Brown CRNP [address] [place] [address] 07/10/2024 12:40 PM EST Office Visit Family Practice [place] [address], [place] [address] [place] [address] Jcarlos Laureano PA-C [address] [place] [address] 09/18/2024 2:30 PM EDT Nurse Only Ancillary [place] [address], [place] [address] [place] [place] [address] [place], Nurse Annual Wellness Cold [address] [place] [place] [address] [place] [address] Scheduled Procedures Name Priority Associated Diagnoses Date/Ti [...] D LEVEL ONCE IN A LIFETIME-USE SMARTSET# [id number] Completed 04/30/2023, 12/21/2021, 09/13/2020, Additional history exists [...] Not on filedocumented as of this encounter Care Teams Attendant Sales Relationship Specialty Start Date End Date Jcarlos Laureano PA-C [address] [facility] [place] [phone] PCP - General Physician Digital Content Producer 07/10/23 documented as of this encounter
--- OUTSIDE RECORDS SUMMARY | 2024-03-06 04:07 | External Medical Summary | Summary of Care ---
Author Name Unknown Organization [facility] Address [address] [facility] [place] [address] Phone [phone] Care Team Providers Care Chute Feeder Name Role Phone Jcarlos Mcpherson PA-C Primary Care Provide r Reason for Visit * Reason Comments Medication Refill Encounter Details Date Type Department Care Team (Late st Contact Info) Description 01/20/2024 Refill Family Practice [facility] [place] [address] [facility] [place] [id number] Roxi Bueno, DO [address] [place] [address] Age-related osteoporosis without current pathological fracture Allergies Active Allergy Reactions Criticality Noted Date [...] as of this encounter (statuses as of 01/21/2024) Medications Medication Sig Dispensed Refills Start Date End Date Status Estradiol 0.1 MG/GM Vaginal Cream (Estrace)Indications :Vaginal atrophy Apply 1/2 g topically to affected area in the morning. 42.5 g 6 02/08/2023 Active Gabapentin 400 MG Oral Capsule (Neurontin)Indicatio [...] needed. Medical Marijuana Capsules Active Nystatin-Triamcinolo ne 410666-4.1 UNIT/GM-% External Cream (Mycolog)Indications :Yeast infection Apply [...] TABLET 15 Tablet 1 01/21/2024 5 Active Alendronate Sodium 70 MG Oral Tablet (Fosamax)Indications :Age-related osteoporosis without current pathological fracture TAKE ONE TABLET BY MOUTH ONCE A WEEK WITH 8 OZ OF WATER 30 MINUTES BEFORE FIRST MEAL OF THE DAY. 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 Increased risk for Inherited Arrhythmias. Please click [...] as of this encounter (statuses as of 01/21/2024) Resolved Problems Problem Noted Date Diagnosed Date [...] 03/13/2018 Overview: 02/14/18 While on vaction in [place] Facial laceration 02/21/2018 06/27/2021 Overview: 02/14/18 While on vaction in [place] Closed fracture of nasal bones 02/21/2018 06/27/2021 Overview: 02/14/18 While on vaction in [place] Fall on or from sidewalk curb 02/21/2018 03/13/2018 Overview: 02/14/18 While on vaction in [place] History of nonmelanoma skin cancer 06/12/2017 12/20/2017 Overview: BCC nasal bridge 12/02 Trochanteric bursitis of right hip 05/16/2017 12/20/2017 Hx of non anemic vitamin B12 deficiency 04/02/2017 12/20/2017 History of laminectomy 07/26/201612/20 HTN, goal below 150/90 12/24/201508/21 Bronchospasm, exercise-induced 10/07/2012 06/02/2016 Genetic Sleep Disorder [facility] Other*[id number] 10/19/2011 01/20/2016 Other pulmonary embolism and infarction [...] as of this encounter (statuses as of 01/21/2024) Immunizations Name Administration Dates Next Due COVID-19 [...] encounter Miscellaneous Notes * Telephone Encounter - Jim Lackey [facility] - 01/21/2024 8:38 AM EDTSigned Prescriptions: Disp Refills Alendronate Sodium 70 MG Oral Tablet (Fosa*15 Tab*1 Sig: TAKE ONE TABLET BY MOUTH ONCE A WEEK WITH 8 OZ OF WATER 30 MINUTES BEFORE FIRST MEAL OF THE DAY. REMAIN UPRIGHT FOR 30 MINUTES AFTER TAKING TABLETAuthorizing Provider: JCARLOS MCPHERSON User: JIM LACKEY documented in this encounter Plan of Treatment Upcoming Encounters Date Type Department Care Team (Late st Contact Info) Description 01/21/2024 4:00 PM EDT Imaging Radiology [address] 132 [facility] [place] [address] 02/05/2024 8:40 AM EDT Office Visit Dermatology [facility] [address] [place] [address] Amy Mckeon PA-C [address] [place] [address] 02/26/2024 4:00 PM EDT Office Visit Urology, [facility] 132 [facility] [place] [address] Salvador Mireles MD [place] [address] 03/14/2024 12:50 PM EDT Hospital Encounter OR [facility], Operating Room [facility] 132 [facility] [place] [phone] eNss Lundy MD [address] [place] [address] 03/14/2024 12:50 PM EDT - 03/14/2024 1:10 PM EDT Surgery OR [facility], Operating Room [facility] 132 [facility] [place] [phone] Ness Lundy MD [address] [place] [address] Michael [place] [address] INJECTION SACROILIAC JOINT 05/14/2024 1:00 PM EST Office Visit Allergy/Immunology [facility] [address] [place] [address] Michael Vieira MD [address] [place] [address] 06/20/2024 12:00 PM EST Office Visit Sleep Disorders [facility]tr [facility] 132 [facility] [place] [phone] Edilma Brown CRNP 132 [facility] [place] [address] 07/10/2024 12:40 PM EST Office Visit Family Practice [address] [place] [address] Jcarlos Mcpherson PA-C [address] [place] [address] 09/18/2024 2:30 PM EDT Nurse Only Ancillary [address] [place] [address] [place], Nurse Annual Wellness Cold [address] [place] [address] Scheduled Procedures Name Priority Associated Diagnoses Date/Ti [...] D LEVEL ONCE IN A LIFETIME-USE SMARTSET# [id number] Completed 04/30/2023, 12/21/2021, 09/13/2020, Additional history exists [...] as of this encounter Visit Diagnoses Diagnosis Age-related osteoporosis without current pathological fracture Senile osteoporosis Inflammation of sacroiliac joint (HCC) Sacroiliitis, not elsewhere classified documented in this encounter Care Teams Chute Feeder Relationship Specialty Start Date End Date Jcarlos Mcpherson PA-C [address] [facility] [place] [address] PCP - General Physician Emergency Department 07/10/23 documented as of this encounter
--- OUTSIDE RECORDS SUMMARY | 2024-03-06 04:07 | External Medical Summary | Summary of Care ---
Author Name Unknown Organization [facility] Address [address] [facility] [place] [address] Phone [phone] Care Team Providers Care Engineering Production Worker Name Role Phone Jcarlos Laureano PA-C Primary Care Provide r Reason for Visit * Reason Comments Skin Check Routine skin exam. R ough spot on left shoulder. Hx: BCC Encounter Details Date Type Department Care Team (Late st Contact Info) Description 02/05/2024 8:40 AM EDT Office Visit Dermatology [facility] [address] [place] [address] Amy Mckeon PA-C [address] [place] [address] Epidermoid cyst*; Seborrheic keratosis; Diffuse photodamage of [...] needed. Medical Marijuana Capsules Active Nystatin-Triamcinolon e 232705-3.1 UNIT/GM-% External Cream (Mycolog)Indications: Yeast infection Apply [...] (BMI) of 36.0 to 36.9 in adult ([facility]) Inject 2 mg under the skin [...] gene variant (c.1081 C>T, p.(Q361*)) detected via Localbase. Increased risk for Inherited Arrhythmias. Please click [...] exercise-induced 10/07/2012 06/02/2016 Genetic Sleep Disorder [facility] Other*[id number] 10/19/2011 01/20/2016 Other pulmonary embolism and infarction [...] No 09/12/2023 Does the household have a [facility] care services[facility] source of income? (Household - for ages [...] as of this encounter Progress Notes * Amy Mckeon PA-C - 02/05/2024 8:43 AM EDT Nursing Notes: Verna Longoria, GAEL 02/05/24 0836 Signed Patient identified by name [...] daily as needed. Medical Marijuana Capsules Nystatin-Triamcinolone 000914-7.1 UNIT/GM-% External Cream (Mycolog) Apply to affected [...] 02/22/2024 1:50 PM EDT Office Visit Dermatology [facility] [address] [place] [address] Amy Mckeon PA-C [address] [place] [address] 02/26/2024 4:00 PM EDT Office Visit Urology, [facility] [address] [place] [address] Salvador Mireles MD [place] [address] 03/14/2024 12:50 PM EDT Hospital Encounter OR [facility], Operating Room [facility] [address] [place] [phone] Ness Lundy MD 400 [place] [address] 03/14/2024 12:50 PM EDT - 03/14/2024 1:10 PM EDT Surgery OR [facility], Operating Room [facility] 132 [place] [phone] Ness Lundy MD [address] [place] [address] INJECTION SACROILIAC JOINT 05/14/2024 1:00 PM EST Office Visit [facility]Immun[facility] 200 [facility] [place] [address] Michael Vieira MD [address] [place] [address] 06/20/2024 12:00 PM EST Office Visit Sleep Disorders [facility]tr [facility] 132 [facility] [place] [phone] Edilma Brown CRNP 132 [facility] [place] [address] 07/10/2024 12:40 PM EST Office Visit Family Practice [address], [place] [address] [place] [address] Jcarlos Laureano PA-C [address] [place] [id number] 09/18/2024 2:30 PM EDT Nurse Only Ancillary [address], [place] [address] [place] [address] [place], Nurse Annual Wellness Cold [address] [place] [address] 02/04/2025 12:50 PM EDT Office Visit Dermatology [address], [place] [address] [place] [address] Amy Mckeon PA-C [address] [place] [address] Scheduled Procedures Name Priority Associated Diagnoses Date/Ti [...] D LEVEL ONCE IN A LIFETIME-USE SMARTSET# [id number] Completed 04/30/2023, 12/21/2021, 09/13/2020, Additional history exists [...] interpreted or resulted by a [facility] or [facility] contracted radiologist. Amy Mckeon PA-C RADIOLOGY ( [facility]) documented in this encounter Visit Diagnoses [...] classified documented in this encounter Care Teams Engineering Production Worker Relationship Specialty Start Date End Date Jcarlos Laureano PA-C [address] [facility] [place] [address] PCP - General Physician Galvanometer Assembler 07/10/23 documented as of this encounter
--- OUTSIDE RECORDS SUMMARY | 2024-03-06 04:07 | External Medical Summary | Summary of Care ---
Author Name Unknown Organization [facility] Address [address] [facility] [address] Phone [phone] Care Team Providers Care Plasterer Journeyman Name Role Phone Jcarlos Laureano PA-C Primary Care Provide r Encounter Details Date Type Department Care Team (Late st Contact Info) Description 01/11/2024 Result Scan Unspecified Department <No scans attached> Allergies Active Allergy Reactions Criticality Noted Date [...] as of this encounter (statuses as of 01/15/2024) Medications Medication Sig Dispensed Refills Start Date [...] needed. Medical Marijuana Capsules Active Nystatin-Triamcinolon e 429949-1.1 UNIT/GM-% External Cream (Mycolog)Indications: Yeast infection Apply [...] 7 days. Until gone. 14 Tablet 01/10/2024 4 Active Ciprofloxacin HCl 500 MG Oral Tablet (Cipro) Take 1 Tablet by mouth in the morning and 1 Tablet before bedtime. 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 Increased risk for Inherited Arrhythmias. Please click [...] Dyslipidemia 12/24/2015 BPPV (benign paroxysmal positional vertigo) 07/06/2015 DIAN (generalized anxiety disorder) 05/08/2014 SIMS (nonalcoholic steatohepatitis) 09/22/2013 LUIS (obstructive sleep apnea) 01/12/2012 Overview: 09/04/14 PSG -- AHI 5.9, RDI 8.1, no desats, 11% TST snoring 12/22/11 PSG - AHI 7.1, very mild nocturnal desats, mild snoring Lumbar spinal stenosis Overview: L 5 documented as of this encounter (statuses as of 01/15/2024) Resolved Problems Problem Noted Date Diagnosed Date [...] exercise-induced 10/07/2012 06/02/[address] [facility] Other*[id number] 10/19/2011 01/20/2016 Other pulmonary embolism and infarction [...] as of this encounter (statuses as of 01/15/2024) Immunizations Name Administration Dates Next Due COVID-19 [...] No 09/12/2023 Does the household have a [facility] source of income? (Household - for ages [...] Description 01/21/2024 4:00 PM EDT Imaging Radiology [address] [place] [address] 02/05/2024 8:40 AM EDT Office Visit Dermatology [place] [address] [facility] [place] [address] Amy Mckeon PA-C [address] [facility] [place] [address] 02/26/2024 4:00 PM EDT Office Visit Urology, [facility] [address] [place] [address] Salvador Mireles MD 27 [place] [id number] 03/14/2024 12:50 PM EDT Hospital Encounter OR [facility], Operating Room [facility] [address] [place] [phone] Ness Lundy MD [address] [place] [address] 03/14/2024 12:50 PM EDT - 03/14/2024 1:10 PM EDT Surgery OR [facility], Operating Room [facility] [address] [place] [phone] Ness Lundy MD [address] [place] [address] INJECTION SACROILIAC JOINT 05/14/2024 1:00 PM EST Office Visit Allergy/Immunology [facility] 200 [facility] [place] [address] Michael Vieira MD 200 [facility] [place] [address] 06/20/2024 12:00 PM EST Office Visit Sleep Disorders Ctr [facility] [address] [place] [phone] Edilma Brown CRNP [address] [place] [address] 07/10/2024 12:40 PM EST Office Visit Family Practice [address], [place] [address] [place] [address] Jcarlos Laureano PA-C [address] [place] [address] 09/18/2024 2:30 PM EDT Nurse Only Ancillary [place] [address] [place], [place] [address] [place], Nurse Annual Wellness [place] [address] [place] [address] Scheduled Procedures Name Priority Associated Diagnoses Date/Ti [...] D LEVEL ONCE IN A LIFETIME-USE SMARTSET# [id number] Completed 04/30/2023, 12/21/2021, 09/13/2020, Additional history exists [...] Procedure Name Priority Date/Time Associated Diagnosis Comments OUTSIDE LAB RESULTS 01/11/2024 documented in this encounter Results * OUTSIDE LAB RESULTS (01/11/2024) 01/11/2024 No Physician Data Unknown LABORATORY documented in this encounter Care Teams Plasterer Journeyman Relationship Specialty Start Date End Date Jcarlos Laureano PA-C [address] [facility] [place] [address] PCP - General Physician Aircraft Instrument Tester 07/10/23 documented as of this encounter
--- OUTSIDE RECORDS SUMMARY | 2024-03-06 04:08 | External Medical Summary ---
Author Name Unknown Address Unknown Organization K01:LABORATORY [facility] - [address] [facility] [address] Laboratory Report Ordering Provider Test Date Status VIDA SILVA 01/07/2024 07:16:39 Final Observation Date Value Abnormality Reference (Units ) Status Color of Urine by Auto 01/07/2024 07:16:39 Yellow Colorless, Light Yellow, Yellow, Dark Yellow Final Clarity, Urine 01/07/2024 07:16:39 Cloudy Abnormal Clear Final Glucose [Mass/volume] in Urine by Automated test strip 01/07/2024 07:16:39 Negative Negative (mg/dL) Final Bilirubin.total [Presence] in Urine by Automated test strip 01/07/2024 07:16:39 Negative Negative Final Ketones [Mass/volume] in Urine by Automated test strip 01/07/2024 07:16:39 Negative Negative (mg/dL) Final Specific gravity, Urine 01/07/2024 07:16:39 1.023 1.003-1.030 Final Hemoglobin [Presence] in Urine by Automated test strip 01/07/2024 07:16:39 Small Abnormal Negative Final pH, Urine 01/07/2024 07:16:39 6.0 5.0-7.5 (Units) Final Protein [Mass/volume] in Urine by Automated test strip 01/07/2024 07:16:39 Trace Abnormal Negative (mg/dL) Final Urobilinogen [Mass/volume] in Urine by Automated test strip 01/07/2024 07:16:39 Normal Normal (mg/dL) Final Nitrite [Presence] in Urine by Automated test strip 01/07/2024 07:16:39 Positive Abnormal Negative Final Leukocyte esterase [Presence] in Urine by Automated test strip 01/07/2024 07:16:39 Large Abnormal Negative Final RBC, Urine 01/07/2024 07:16:39 10-19 Abnormal 0-2 (/HPF) Final WBC, Urine 01/07/2024 07:16:39 50+ Abnormal 0-2 (/HPF) Final Bacteria [#/area] in Urine sediment by Microscopy high power field 01/07/2024 07:16:39 >200 Abnormal 0-25 (/HPF) Final Transitional cells [#/area] in Urine sediment by Microscopy high power field 01/07/2024 07:16:39 5-9 Abnormal None (/HPF) Final Leukocyte clumps [#/area] in Urine sediment by Microscopy high power field 01/07/2024 07:16:39 Present Abnormal None (/HPF) Final Performing Location LABORATORY [facility] - [facility] [address]. [facility] [address]
--- OUTSIDE RECORDS SUMMARY | 2024-03-06 04:08 | External Medical Summary | Summary of Care ---
Author Name Unknown Organization [facility] Address [address] [facility] [place] [address] Phone [phone] Care Team Providers Care Plate Conditioner Name Role Phone Jcarlos Laureano PA-C Primary Care Provide r Reason for Visit * Reason Onset Date Comments Advice 01/09/2024 Abnormal lab Encounter Details Date Type Department Care Team (Late st Contact Info) Description 01/09/2024 Telephone Family Practice [place] [address] [facility] [place] [address] Jcarlos Laureano PA-C [address] [facility] [place] [address] Advice (Abnormal lab/) [...] needed. Medical Marijuana Capsules Active Nystatin-Triamcinolo ne 153797-3.1 UNIT/GM-% External Cream (Mycolog)Indications :Yeast infection Apply [...] of 36.0 to 36.9 in adult ([facility]) Inject 2 mg under the [...] gene variant (c.1081 C>T, p.(Q361*)) detected via [employer]. Increased risk for Inherited Arrhythmias. Please click [...] 03/13/2018 Overview: 02/14/18 While on vaction in [place] Facial laceration 02/21/2018 06/27/2021 Overview: 02/14/18 While on vaction in [place] Closed fracture of nasal bones 02/21/2018 06/27/2021 Overview: 02/14/18 While on vaction in [place] Fall on or from sidewalk curb 02/21/2018 03/13/2018 Overview: 02/14/18 While on vaction in [place] History of nonmelanoma skin cancer 06/12/2017 12/20/2017 Overview: BCC nasal bridge 12/02 Trochanteric bursitis of right hip 05/16/2017 12/20/2017 Hx of non anemic vitamin B12 deficiency 04/02/2017 12/20/2017 History of laminectomy 07/26/201612/20 HTN, goal below 150/90 12/24/201508/21 Bronchospasm, exercise-induced 10/07/2012 06/02/2016 Genetic Sleep Disorder Resea [facility] Other*[id number] 10/19/2011 01/20/2016 Other pulmonary embolism and infarction [...] encounter Miscellaneous Notes * Telephone Encounter - Cathi Higgins RN - 01/10/2024 11:51 AM EDT Spoke to pt and she told us she already takes one Bactrim at everyday as a preventative measure. Spoke with Jcarlos about this and he asked to have this message sent to Urology for Dr Mireles to review and recommend treatment to the pt. Pt is aware this is being passed on and she will expect to hearback from the Urology dept * Telephone Encounter [...] of Test : 01/07/24 Location of Test: [place] Ordering Provider: Jeff Lauerano Patient has been made aware that the [...] Description 01/21/2024 4:00 PM EDT Imaging Radiology [facility] [address] [place] [address] 02/05/2024 8:40 AM EDT Office Visit Dermatology [facility] [place] [address] [place] [address] Amy Mckeon PA-C [address] [place] [address] 02/26/2024 4:00 PM EDT Office Visit Urology, [facility] 132 [place] [address] Salvador Mireles MD [place] [address] 03/14/2024 12:50 PM EDT Hospital Encounter OR [facility], Operating Room OSS 132 [place] [phone] Ness Lundy MD [facility] [address] 03/14/2024 12:50 PM EDT - 03/14/2024 1:10 PM EDT Surgery OR [facility], Operating Room OSS 132 [place] [phone] Ness Lundy MD [address] [place] [address] INJECTION SACROILIAC JOINT 05/14/2024 1:00 PM EST Office Visit Allergy/Immunology [facility] [address] [place] [address] Michael Vieira MD 200 [facility] [place] [address] 06/20/2024 12:00 PM EST Office Visit Sleep Disorders Ctr [facility] [address] [place] [phone] Edilma Brown CRNP [address] [place] [address] 07/10/2024 12:40 PM EST Office Visit Family Practice [address] [place] [address], [place] [address] [place] [address] Jcarlos Laureano PA-C [address] [place] [address] 09/18/2024 2:30 PM EDT Nurse Only Ancillary [address], [place] [address] [place] [address] [place], Nurse Annual Wellness [place] [address] [place] [address] Scheduled Orders Name Type Priority Associated Diagnoses [...] D LEVEL ONCE IN A LIFETIME-USE SMARTSET# [id number] Completed 04/30/2023, 12/21/2021, 09/13/2020, Additional history exists [...] classified documented in this encounter Care Teams Plate Conditioner Relationship Specialty Start Date End Date Jcarlos Laureano PA-C [address] [facility] [place] [address] PCP - General Physician General Operations Agent 07/10/23 documented as of this encounter
--- OUTSIDE RECORDS SUMMARY | 2024-03-06 04:08 | External Medical Summary | Summary of Care ---
Author Name Unknown Organization [facility] Address [address] [facility] [place] [address] Phone [phone] Care Team Providers Care Cardiac Nurse Name Role Phone Jcarlos Laureano PA-C Primary Care Provide r Reason for Visit * Reason Comments Outpatient Testing Encounter Details Date Type Department Care Team (Late st Contact Info) Description 01/07/2024 7:30 AM EDT Laboratory Laboratory [facility] [place] [address] [facility] [place] [phone] [place], Lab [facility] [address] [facility] [phone] Urinary frequency; HTN, goal below 150/90; LUIS (obstructive sleep apnea); Pure hypercholesterolemia; DIAN (generalized anxiety disorder); Prediabetes Allergies Active Allergy Reactions Criticality Noted Date [...] as of this encounter (statuses as of 01/07/2024) Medications Medication Sig Dispensed Refills Start Date [...] AT BEDTIME 200 Tablet 3 04/17/2023 Active Sulfamethoxazole-Trim ethoprim 400-80 MG Oral Tablet (Bactrim) Take 1 Tablet by mouth at bedtime. 90 Tablet 3 05/24/2023 Active Folic Acid 1 MG Oral TabletIndications:MTH [...] needed. Medical Marijuana Capsules Active Nystatin-Triamcinolon e 844882-4.1 UNIT/GM-% External Cream (Mycolog)Indications: Yeast infection Apply to affected area two times per day for 1 week 15 g 2 11/22/2023 Active Latanoprost 0.005 % Ophthalmic Solution (Xalatan) Instill 1 Drop into both eyes at bedtime. 10 mL 3 11/23/2023 Active Tamsulosin HCl 0.4 MG Oral Capsule (Flomax) TAKE ONE CAPSULE BY MOUTH EVERY MORNING 90 Capsule 3 11/29/2023 Active Ozempic (2 MG/DOSE) 8 MG/3ML Subcutaneous [...] Active CPAP every night at bedtime. 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 Increased risk for Inherited Arrhythmias. Please click [...] 09/22/2013 LUIS (obstructive sleep apnea) 01/12/2012 Overview: 3/13/15 PSG -- AHI 5.9, RDI 8.1, no desats, 11% TST snoring 12/22/11 PSG - AHI 7.1, very mild nocturnal desats, mild snoring Lumbar spinal stenosis Overview: L 5 documented as of this encounter (statuses as of 01/07/2024) Resolved Problems Problem Noted Date Diagnosed Date [...] 03/13/2018 Overview: 02/14/18 While on vaction in [place] Facial laceration 02/21/2018 06/27/2021 Overview: 02/14/18 While on vaction in [place] Closed fracture of nasal bones 02/21/2018 06/27/2021 Overview: 02/14/18 While on vaction in [place] Fall on or from sidewalk curb 02/21/2018 03/13/2018 Overview: 02/14/18 While on vaction in [place] History of nonmelanoma skin cancer 06/12/2017 12/20/2017 Overview: BCC nasal bridge 12/02 Trochanteric bursitis of right hip 05/16/2017 12/20/2017 Hx of non anemic vitamin B12 deficiency 04/02/2017 12/20/2017 History of laminectomy 07/26/201612/20 HTN, goal below 150/90 12/24/201508/21 Bronchospasm, exercise-induced 10/07/2012 06/02/2016 Genetic Sleep Disorder Resea [facility] Other*[id number] 10/19/2011 01/20/2016 Other pulmonary embolism and infarction [...] as of this encounter (statuses as of 01/07/2024) Immunizations Name Administration Dates Next Due COVID-19 [...] Description 01/21/2024 4:00 PM EDT Imaging Radiology [address] [place] [address] 02/05/2024 8:40 AM EDT Office Visit Dermatology [facility], [address] [place] [address] Amy Mckeon PA-C [address] [facility] [place] [address] 02/26/2024 4:00 PM EDT Office Visit Urology, [facility] 132 [facility] [place] [address] Salvador Mireles MD [address] [place] [address] 03/14/2024 12:50 PM EDT Hospital Encounter OR [facility], Operating Room [facility] 132 [facility] [place] [phone] Ness Lundy MD [address] [place] [address] 03/14/2024 12:50 PM EDT - 03/14/2024 1:10 PM EDT Surgery [facility] [place] [phone] Ness Lundy MD [address] [place] [phone] INJECTION SACROILIAC JOINT 05/14/2024 1:00 PM EST Office Visit Allergy/Immunology [facility] [address] [place] [address] Michael Vieira MD [address] [place] [address] 06/20/2024 12:00 PM EST Office Visit Sleep Disorders Ctr [facility] [address] [facility] [place] [phone] Edilma Brown CRNP [address] [place] [address] 07/10/2024 12:40 PM EST Office Visit Family Practice [facility] [place] [address] [place] [address] Jcarlos Laureano PA-C [address] [place] [address] 09/18/2024 2:30 PM EDT Nurse Only Ancillary [place] [address] [place] [address] [place], Nurse Annual Wellness [place] [address] [place] [address] Pending Results Name Type Priority Associated Diagnoses Date /Time URINALYSIS WITH MICROSCOPIC EXAM Lab Routine Urinary frequency 01/07/2024 7:16 AM EDT HEMOGLOBIN A1C Lab Routine HTN, goal below 150/90 LUIS (obstructive sleep apnea) Pure hypercholesterolemia DIAN (generalized anxiety disorder) Prediabetes 01/07/2024 7:16 AM EDT LIPID PANEL WITH DIRECT LDL IF TG IS HIGH Lab Routine HTN, goal below 150/90 LUIS (obstructive sleep apnea) Pure hypercholesterolemia DIAN (generalized anxiety disorder) Prediabetes 01/07/2024 7:16 AM EDT BASIC METABOLIC PANEL Lab Routine HTN, goal below 150/90 LUIS (obstructive sleep apnea) Pure hypercholesterolemia DIAN (generalized anxiety disorder) Prediabetes 01/07/2024 7:16 AM EDT Scheduled Procedures Name Priority Associated Diagnoses Date/Ti [...] D LEVEL ONCE IN A LIFETIME-USE SMARTSET# [id number] Completed 04/30/2023, 12/21/2021, 09/13/2020, Additional history exists [...] as of this encounter Visit Diagnoses Diagnosis Urinary frequency HTN, goal below 150/90 LUIS (obstructive sleep apnea) Obstructive sleep apnea (adult) (pediatric) Pure hypercholesterolemia DIAN (generalized anxiety disorder) Generalized anxiety disorder Prediabetes Other abnormal glucose Inflammation of sacroiliac joint (HCC) Sacroiliitis, not elsewhere classified documented in this encounter Care Teams Cardiac Nurse Relationship Specialty Start Date End Date Jcarlos Laureano PA-C [address] [facility] [place] [address] PCP - General Physician Finish Opener 07/10/23 documented as of this encounter
--- OUTSIDE RECORDS SUMMARY | 2024-03-06 04:08 | External Medical Summary | Summary of Care ---
Author Name Unknown Organization [facility] Address [address] [facility] [place] [address] Phone [phone] Care Team Providers Care Table Runner Name Role Phone Jcarlos Laureano PA-C Primary Care Provide r Reason for Visit * Reason Comments Outpatient Testing Encounter Details Date Type Department Care Team (Late st Contact Info) Description 01/07/2024 7:30 AM EDT Laboratory Laboratory [facility], [place] [address] [facility] [place] [phone] [place], Lab [facility] [address] [facility] [phone] Urinary frequency; HTN, goal below 150/90; LUIS [...] needed. Medical Marijuana Capsules Active Nystatin-Triamcinolon e 268582-2.1 UNIT/GM-% External Cream (Mycolog)Indications: Yeast infection Apply [...] gene variant (c.1081 C>T, p.(Q361*)) detected via [employer]. Increased risk for Inherited Arrhythmias. Please click [...] 03/13/2018 Overview: 02/14/18 While on vaction in [place] Facial laceration 02/21/2018 06/27/2021 Overview: 02/14/18 While on vaction in [place] Closed fracture of nasal bones 02/21/2018 06/27/2021 Overview: 02/14/18 While on vaction in [place] Fall on or from sidewalk curb 02/21/2018 03/13/2018 Overview: 02/14/18 While on vaction in [place] History of nonmelanoma skin cancer 06/12/2017 12/20/2017 Overview: BCC nasal bridge 12/02 Trochanteric bursitis of right hip 05/16/2017 12/20/2017 Hx of non anemic vitamin B12 deficiency 04/02/2017 12/20/2017 History of laminectomy 07/26/201612/20 HTN, goal below 150/90 12/24/201508/21 Bronchospasm, exercise-induced 10/07/2012 06/02/2016 Genetic Sleep Disorder Resea [facility] Other*[id number] 10/19/2011 01/20/2016 Other pulmonary embolism and infarction [...] Description 01/21/2024 4:00 PM EDT Imaging Radiology [address] [place] [address] 02/05/2024 8:40 AM EDT Office Visit Dermatology [facility], [address] [place] [address] Amy Mckeon PA-C [address] [facility] [place] [address] 02/26/2024 4:00 PM EDT Office Visit Urology, [facility] [address] [facility] [place] [address] Salvador Mireles MD [address] [place] [address] 03/14/2024 12:50 PM EDT Hospital Encounter OR [facility], Operating Room [facility] 132 [facility] [place] [phone] Ness Lundy MD [address] [place] [address] 03/14/2024 12:50 PM EDT - 03/14/2024 1:10 PM EDT Surgery [facility] [place] [phone] Ness Lundy MD [address] [place] [id number] INJECTION SACROILIAC JOINT 05/14/2024 1:00 PM EST Office Visit Allergy/Immunology [facility] [address] [place] [address] Michael Vieira MD [address] [place] [address] 06/20/2024 12:00 PM EST Office Visit [facility] Disorders Ctr [facility] [address] [facility] [place] [phone] Edilma Brown CRNP [address] [place] [address] 07/10/2024 12:40 PM EST Office Visit Family Practice [facility], [place] [address] [place] [address] Jcarlos Laureano PA-C [address] [place] [address] 09/18/2024 2:30 PM EDT Nurse Only Ancillary [place] [address] [place] [address] [place], Nurse Annual Wellness [place] [address] [place] [address] Pending Results Name Type Priority Associated Diagnoses [...] D LEVEL ONCE IN A LIFETIME-USE SMARTSET# [id number] Completed 04/30/2023, 12/21/2021, 09/13/2020, Additional history exists [...] classified documented in this encounter Care Teams Table Runner Relationship Specialty Start Date End Date Jcarlos Laureano PA-C [address] [facility] [place] [address] PCP - General Physician Grounds Supervisor 07/10/23 documented as of this encounter
--- OUTSIDE RECORDS SUMMARY | 2024-03-06 04:08 | External Medical Summary | Summary of Care ---
Author Name Unknown Organization [facility] Address [address] [address] Phone [phone] Care Team Providers Care Waterproof Material Folder Name Role Phone Jcarlos Laureano PA-C Primary Care Provide r Encounter Details Date Type Department Care Team (Late st Contact Info) Description 12/25/2023 Orders Only PATIENT PORTAL DO NOT DELETE THIS DEPT USED BY LYNN ARECHIGA [id number] Allergies Active Allergy Reactions Criticality Noted Date [...] as of this encounter (statuses as of 12/25/2023) Medications Medication Sig Dispensed Refills Start Date [...] needed. 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 Increased risk for Inherited Arrhythmias. Please click [...] as of this encounter (statuses as of 12/25/2023) Resolved Problems Problem Noted Date Diagnosed Date [...] 03/13/2018 Overview: 02/14/18 While on vaction in [place] Facial laceration 02/21/2018 06/27/2021 Overview: 02/14/18 While on vaction in [place] Closed fracture of nasal bones 02/21/2018 06/27/2021 Overview: 02/14/18 While on vaction in [place] Fall on or from sidewalk curb 02/21/2018 03/13/2018 Overview: 02/14/18 While on vaction in [place] History of nonmelanoma skin cancer 06/12/2017 12/20/2017 Overview: BCC nasal bridge 12/02 Trochanteric bursitis of right hip 05/16/2017 12/20/2017 Hx of non anemic vitamin B12 deficiency 04/02/2017 12/20/2017 History of laminectomy 07/26/201612/20 HTN, goal below 150/90 12/24/201508/21 Bronchospasm, exercise-induced 10/07/2012 06/02/2016 Genetic Sleep Disorder Resea [facility] Other*[id number] 10/19/2011 01/20/2016 Other pulmonary embolism and infarction [...] as of this encounter (statuses as of 12/25/2023) Immunizations Name Administration Dates Next Due COVID-19 [...] No 09/12/2023 Does the household have a gular source of income? (Household - for [...] Care Team (Late st Contact Info) Description 01/02/2024 3:15 PM EDT Office Visit Urology, [facility] [address] [facility] [place] [address] Salvador Mireles MD [address] [place] [address] 01/21/2024 4:00 PM EDT Imaging Radiology [facility] 1st [facility] 132 [place] [address] 02/05/2024 8:40 AM EDT Office Visit Dermatology [facility], [address] [address] Amy Mckeon PA-C [address] [place] [address] 05/14/2024 1:00 PM EST Office Visit Allergy/Immun[facility] [address] [facility] [place] [address] Michael Vieira MD [address] [facility] [place] [address] 06/20/2024 12:00 PM EST Office Visit Sleep Disorders Ctr [facility] [address] [facility] [place] [phone] Edilma Brown CRNP 132 [facility] [place] [address] 07/10/2024 12:40 PM EST Office Visit Family Practice [address], [place] [address] [place] [address] Jcarlos Laureano PA-C [address] [place] [address] 09/18/2024 2:30 PM EDT Nurse Only Ancillary [address], [place] [address] [place] [address] [place], Nurse Annual Wellness Cold [address] [place] [address] Health Maintenance Due Date Last Done Comments [...] D LEVEL ONCE IN A LIFETIME-USE SMARTSET# [id number] Completed 04/30/2023, 12/21/2021, 09/13/2020, Additional history exists GARDASIL-HPV IMMUNIZATION SERIES Aged Out No longer eligible based on patient's age to complete this topic Hepatitis B Aged Out No longer eligi ble based on patient's age to complete this topic MENINGOCOCCAL (MENACTRA/MENVEO) Aged Out No longer eligible based on patient's age to complete this topic documented as of this encounter Medical Devices Not on filedocumented as of this encounter Care Teams Waterproof Material Folder Relationship Specialty Start Date End Date Jcarlos Laureano PA-C [address] [facility] [place] [address] PCP - General Physician Pig Farmer 07/10/23 documented as of this encounter
--- OUTSIDE RECORDS SUMMARY | 2024-03-06 04:08 | External Medical Summary | Summary of Care ---
Author Name Unknown Organization [facility] Address [address] [facility] [place] [address] Phone [phone] Care Team Providers Care Gem Expert Name Role Phone Jcarlos Laureano PA-C Primary Care Provide r Reason for Visit * Reason Onset Date Comments Appointment 12/25/2023 Encounter Details Date Type Department Care Team (Late st Contact Info) Description 12/25/2023 Telephone Access Center, [place] [address] [facility] *DO NOT REMOVE THIS DEPARTMENT* [place] [address] Services, Scheduling [address] [place] [address] Appointment Allergies Active Allergy Reactions Criticality Noted Date [...] as of this encounter (statuses as of 12/26/2023) Medications Medication Sig Dispensed Refills Start Date [...] needed. 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 Increased risk for Inherited Arrhythmias. Please click [...] as of this encounter (statuses as of 12/26/2023) Resolved Problems Problem Noted Date Diagnosed Date [...] 03/13/2018 Overview: 02/14/18 While on vaction in [place] Facial laceration 02/21/2018 06/27/2021 Overview: 02/14/18 While on vaction in [place] Closed fracture of nasal bones 02/21/2018 06/27/2021 Overview: 02/14/18 While on vaction in [place] Fall on or from sidewalk curb 02/21/2018 03/13/2018 Overview: 02/14/18 While on vaction in [place] History of nonmelanoma skin cancer 06/12/2017 12/20/2017 Overview: BCC nasal bridge 12/02 Trochanteric bursitis of right hip 05/16/2017 12/20/2017 Hx of non anemic vitamin B12 deficiency 04/02/2017 12/20/2017 History of laminectomy 07/26/201612/20 HTN, goal below 150/90 12/24/201508/21 Bronchospasm, exercise-induced 10/07/2012 06/02/2016 Genetic Sleep Disorder Resea [facility] Other*[id number] 10/19/2011 01/20/2016 Other pulmonary embolism and infarction [...] as of this encounter (statuses as of 12/26/2023) Immunizations Name Administration Dates Next Due COVID-19 [...] No 09/12/2023 Does the household have a [facility] hospital[facility] source of income? (Household - for [...] encounter Miscellaneous Notes * Telephone Encounter - Deena Kimball LPN - 12/26/2023 10:50 AM EDT Patient reports right hip pain that returned 6wks ago, not radiating into lower ext. Right sacroiliac joint injection 06/06 with . Would like another inj * Telephone Encounter - Bhavana Celestin OSA - 12/25/2023 4:15 PM EDT Pt is calling to schedule another injection within her RT hip. Pt previously seen Dr. Barger/Yon Please reach out and assist in scheduling documented in this encounter Plan of Treatment Upcoming Encounters Date Type Department Care Team (Late st Contact Info) Description 01/02/2024 3:15 PM EDT Office Visit Urology, [facility] 132 [facility] [place] [address] Salvador Mireles MD [address] [place] [address] 01/21/2024 4:00 PM EDT Imaging Radiology [facility] 1st [facility] 132 [facility] [place] [address] 02/05/2024 8:40 AM EDT Office Visit Dermatology [facility], [place] [address] [facility] [address] Amy Mckeon PA-C [address] [facility] [place] [address] 05/14/2024 1:00 PM EST Office Visit Allergy/Immunology [facility] [address] [place] [address] Michael Vieira MD [address] [place] [address] 06/20/2024 12:00 PM EST Office Visit Sleep Disorders Ctr [facility] [address] [facility] [place] [phone] Edilma Brown CRNP 132 [facility] [place] [address] 07/10/2024 12:40 PM EST Office Visit Family Practice [address], [place] [address] [place] [address] Jcarlos Laureano PA-C [address] [facility] [place] [address] 09/18/2024 2:30 PM EDT Nurse Only Ancillary [place] [address] [address] [place] [address] [place], Nurse Annual Wellness Cold [address] [place] [address] Scheduled Orders Name Type Priority Associated Diagnoses Orde r Schedule SACROILIAC JOINT INJECT W/GUIDANCE Procedures Routine Sacroiliitis, not elsewhere classified (HCC) Osteoarthritis of right sacroiliac joint (HCC) Expected: 12/27/2023, Expires: 03/27/2024 Health Maintenance Due Date Last Done Comments [...] D LEVEL ONCE IN A LIFETIME-USE SMARTSET# [id number] Completed 04/30/2023, 12/21/2021, 09/13/2020, Additional history exists [...] classified (HCC)- Primary Sacroiliitis, not elsewhere classified Osteoarthritis of right sacroiliac joint (HCC) documented in this encounter Care Teams Gem Expert Relationship Specialty Start Date End Date Jcarlos Laureaon PA-C [address] [facility] [place] [address] PCP - General Physician Theatrical Rigger 07/10/23 documented as of this encounter
--- OUTSIDE RECORDS SUMMARY | 2024-03-06 04:08 | External Medical Summary ---
Author Name Unknown Address Unknown Organization K01:[facility] [address] [facility] [address] [place] [address] Laboratory Report Ordering Provider Test Date Status VIDA SILVA 01/07/2024 07:16:39 Final Observation Date Value Abnormality Reference (Units ) Status BUN 01/07/2024 07:16:39 19 6-20 (mg/dL) Final Creatinine 01/07/2024 07:16:39 0.6 0.5-1.0 (mg/dL) Final Glomerular filtration rate/1.73 sq M.predicted [Volume Rate/Area] in Serum, Plasma or Blood by Creatinine-based formula (CKD-EPI) 01/07/2024 07:16:39 >90 >=60 (mL/min) Final eGFR is calculated based on the CKD-EPI 2020 equation Sodium 01/07/2024 07:16:39 142 135-146 (m mol/L) Final Potassium 01/07/2024 07:16:39 4.2 3.5-5.1 (m mol/L) Final Cl 01/07/2024 07:16:39 104 98-107 (mm ol/L) Final CO2 01/07/2024 07:16:39 26 22-32 (mmo l/L) Final Anion gap 01/07/2024 07:16:39 12 7-15 (mmol /L) Final Glucose 01/07/2024 07:16:39 98 70-120 (mg /dL) Final Calcium 01/07/2024 07:16:39 9.4 8.4-10.2 ( mg/dL) Final Performing Location [facility] [place] [address] [place] [address]
--- OUTSIDE RECORDS SUMMARY | 2024-03-06 04:08 | External Medical Summary | Summary of Care ---
Author Name Unknown Organization [facility] Address [address] [facility] [place] [address] Phone [phone] Care Team Providers Care Marketing Production Coordinator Name Role Phone Jcarlos Laureano PA-C Primary Care Provide r Reason for Visit * Reason Onset Date Comments Advice 01/09/2024 Abnormal lab Encounter Details Date Type Department Care Team (Late st Contact Info) Description 01/09/2024 Telephone Family Practice [place] [address] [facility] [place] [address] Jcarlos Laureano PA-C [address] [facility] [place] [address] Advice (Abnormal lab/) Allergies [...] needed. Medical Marijuana Capsules Active Nystatin-Triamcinolo ne 292200-8.1 UNIT/GM-% External Cream (Mycolog)Indications :Yeast infection Apply [...] gene variant (c.1081 C>T, p.(Q361*)) detected via Values of n. Increased risk for Inherited Arrhythmias. Please click [...] 03/13/2018 Overview: 02/14/18 While on vaction in [place] Facial laceration 02/21/2018 06/27/2021 Overview: 02/14/18 While on vaction in [place] Closed fracture of nasal bones 02/21/2018 06/27/2021 Overview: 02/14/18 While on vaction in [place] Fall on or from sidewalk curb 02/21/2018 03/13/2018 Overview: 02/14/18 While on vaction in [place] History of nonmelanoma skin cancer 06/12/2017 12/20/2017 Overview: BCC nasal bridge 12/02 Trochanteric bursitis of right hip 05/16/2017 12/20/2017 Hx of non anemic vitamin B12 deficiency 04/02/2017 12/20/2017 History of laminectomy 07/26/201612/20 HTN, goal below 150/90 12/24/201508/21 Bronchospasm, exercise-induced 10/07/2012 06/02/2016 Genetic Sleep Disorder Resea [facility] Other*[id number] 10/19/2011 01/20/2016 Other pulmonary embolism and infarction [...] of Test : 01/07/24 Location of Test: [place] Ordering Provider: Jeff Laureano Patient has been [...] Description 01/21/2024 4:00 PM EDT Imaging Radiology [facility] 1st [facility] [address] [place] [address] 02/05/2024 8:40 AM EDT Office Visit Dermatology [facility], [place] [address] [place] [address] Amy Mckeon PA-C [address] [place] [address] 02/26/2024 4:00 PM EDT Office Visit Urology, [facility] 132 [place] [address] Salvador Mireles MD Jennifer [place] [address] 03/14/2024 12:50 PM EDT Hospital Encounter [facility], Operating Room [facility] [address] [place] [phone] Ness Lundy MD [address] [facility] [address] 03/14/2024 12:50 PM EDT - 03/14/2024 1:10 PM EDT Surgery OR [facility], Operating Room [facility] [address] [place] [phone] Ness Lundy MD [address] [place] [address] INJECTION SACROILIAC JOINT 05/14/2024 1:00 PM EST Office Visit Allergy/Immunology [facility] [address] [place] [address] Michael Vieira MD 200 [facility] [place] [address] 06/20/2024 12:00 PM EST Office Visit Sleep Disorders Ctr [facility] [address] [place] [phone] Edilma Brown CRNP [address] [place] [address] 07/10/2024 12:40 PM EST Office Visit Family Practice [address], [place] [address] [place] [address] Jcarlos Laureano PA-C [address] [place] [address] 09/18/2024 2:30 PM EDT Nurse Only Ancillary [address], [place] [address] [place] [address] [place], Nurse Annual Wellness Cold [address] [place] [address] Scheduled Orders Name Type Priority Associated Diagnoses [...] D LEVEL ONCE IN A LIFETIME-USE SMARTSET# [id number] Completed 04/30/2023, 12/21/2021, 09/13/2020, Additional history exists [...] classified documented in this encounter Care Teams Marketing Production Coordinator Relationship Specialty Start Date End Date Jcarlos Laureano PA-C [address] [facility] [place] [address] PCP - General Physician Electronic Heat Seal Operator 07/10/23 documented as of this encounter
--- OUTSIDE RECORDS SUMMARY | 2024-03-06 04:08 | External Medical Summary ---
Author Name Unknown Address Unknown Organization K01:[facility] [place] [address] [place] [address] Laboratory Report Ordering Provider Test Date Status VIDA SILVA 01/07/2024 07:16:39 Final Observation Date Value Abnormality Reference (Units ) Status HbA1C 01/07/2024 07:16:39 5.5 4.0-5.6 (% ) Final The use of HbA1c to monitor glycemic status is based on normal hemoglobin and HbA composition. This test should not be used in patients with abnormal hemoglobin that affects the half life of the red blood cell or the in vivo glycation rates. Glucose, estimated average 01/07/2024 07:16:39 111 <126 (mg/dL) Final Performing Location [facility] [place] [address] [facility] [address]
--- OUTSIDE RECORDS SUMMARY | 2024-03-06 04:08 | External Medical Summary ---
Author Name Unknown Address Unknown Organization K01[place] [place] [address] [facility] [place] [address] Laboratory Report Ordering Provider Test Date Status VIDA SILVA 01/07/2024 07:16:39 Final Observation Date Value Abnormality Reference (Units ) Status Triglyceride 01/07/2024 07:16:39 200 Above high normal <=174 (mg/dL) Final Triglyceride Reference Range s (mg/dL):
<150 Acceptable
150-174 Borderline high
175-499 High
>=500 Very high Cholesterol 01/07/2024 07:16:39 133 <200 (mg /dL) Final Total Cholesterol Reference Ranges (mg/dL):
<200 Desirable
200-239 Borderline high
>=240 High HDL 01/07/2024 07:16:39 35 Below low normal >49 (mg/dL) Final HDL Cholesterol Reference Ra nges (mg/dL):
>=60 High (Desirable)
<50 Low (Undesirable) For Females
<40 Low (Undesirable) For Males NON-HDL CHOLESTEROL 01/07/2024 07:16:39 98 <=159 (mg/dL) Final Non-HDL Cholesterol Referenc e Range (mg/dL):
<100 Target level for high risk ASCVD patient
<130 Optimal for general population
130-159 Near optimal for general population
160-189 Borderline High
190-219 High
>=220 Very High Performing Location [facility] [place] [address] [place] [address]
--- OUTSIDE RECORDS SUMMARY | 2024-03-06 04:09 | External Medical Summary | Summary of Care ---
Author Name Unknown Organization [facility] Address [address] [facility] [place] [address] Phone [phone] Care Team Providers Care Metal Slitter Name Role Phone Jcarlos Mcpherson PA-C Primary Care Provide r Reason for Visit * Reason Comments Medication Refill Encounter Details Date Type Department Care Team (Late st Contact Info) Description 12/15/2023 [facility] [address] [facility] [place] [phone] Roxi Bueno, DO [address] [place] [address] HTN, goal below 150/90 Allergies Active Allergy Reactions Criticality Noted Date [...] as of this encounter (statuses as of 12/15/2023) Medications Medication Sig Dispensed Refills Start Date End Date Status Alendronate Sodium 70 MG Oral Tablet (Fosamax)Indications :Age-related osteoporosis without current pathological fracture TAKE ONE TABLET BY MOUTH ONCE A WEEK WITH 8 OZ OF WATER 30 MINUTES BEFORE FIRST MEAL OF THE DAY. REMAIN UPRIGHT FOR 30 MINUTES AFTER TAKING TABLET 15 Tablet 3 12/15/2022 4 Active Estradiol 0.1 MG/GM Vaginal Cream (Estrace)Indications [...] AT BEDTIME 200 Tablet 3 04/17/2023 Active Sulfamethoxazole-Tri methoprim 400-80 MG Oral Tablet (Bactrim) Take 1 Tablet by mouth at bedtime. 90 Tablet 3 05/24/2023 Active Folic Acid 1 MG Oral TabletIndications:MT [...] needed. Medical Marijuana Capsules Active Nystatin-Triamcinolo ne 182463-6.1 UNIT/GM-% External Cream (Mycolog)Indications :Yeast infection Apply [...] (BMI) of 36.0 to 36.9 in adult ([facility]) Inject 2 mg under the skin once [...] CHEW 90 Capsule 1 12/15/2023 5 Active DULoxetine HCl 60 MG Oral Capsule Delayed Release Particles (Cymbalta)Indication s:HTN, goal below 150/90 TAKE ONE CAPSULE BY MOUTH EVERY DAY DO NOT CRUSH, CUT OR CHEW 90 Capsule 3 11/24/2022 4 Discontinu ed(Refill) documented as of this encounter (statuses as of 12/15/2023) Active Problems Problem Noted Date Diagnosed Date Impingement syndrome of left shoulder 09/05/2022 Sacroiliitis, not elsewhere classified 3 Pure hypercholesterolemia 06/29/2022 Primary open-angle glaucoma, bilateral, mild sta ge 05/04/2022 Morbid obesity 05/04/2022 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 Increased risk for Inherited Arrhythmias. Please click [...] as of this encounter (statuses as of 12/15/2023) Resolved Problems Problem Noted Date Diagnosed Date [...] exercise-induced 10/07/2012 06/02/2016 Genetic Sleep Disorder Resea [facility] Other*[id number] 10/19/2011 01/20/2016 Other pulmonary embolism and infarction [...] as of this encounter (statuses as of 12/15/2023) Immunizations Name Administration Dates Next Due COVID-19 [...] Never Alcohol Use Standard Drinks/Week Comments Yes 1 (1 standard drink = 0.6 oz pur [...] have money to get more. Never true Sex and Gender Information Value Date Recorded Sex Assigned at Female 07/13/2022 1:49 PM EST Gender Identity Female 07/13/2022 1:49 PM EST Sexual Orientation Straight 07/13/2022 1: 49 PM EST Job Start Date Occupation Industry Not on file Not on file Not on file documented as of this encounter Miscellaneous Notes * Telephone Encounter - Denys Bailye [facility] - 12/15/2023 2:14 PM EDT Signed Prescriptions: Disp Refills DULoxetine HCl 60 MG Oral Capsule Delayed *90 Cap*1 Sig: TAKE ONE CAPSULE BY MOUTH EVERY DAY DO NOT CRUSH, CUT OR CHEWAuthorizing Provider: JCARLOS MCPHERSONOrdergilson User: DENYS BAILEY documented in this encounter Plan of Treatment Upcoming Encounters Date Type Department Care Team (Late st Contact Info) Description 12/18/2023 10:00 AM EDT Office Visit Sleep Disorders Ctr [facility] [address] [facility] [place] [phone] Edilma Brown CRNP [address] [facility] [place] [address] 12/18/2023 1:40 PM EDT Office Visit Family Practice [address] [place] [address] Jcarlos Mcpherson PA-C [address] [place] [address] 12/21/2023 10:00 AM EDT Office Visit Allergy/Immunology [facility] [address] [place] [address] Michael Vieira MD [address] [place] [address] 01/02/2024 3:15 PM EDT Office Visit Urology, [facility] [place] [address] [place] [address] Salvador Mireles MD [address] [place] [address] [place] [address] 02/05/2024 8:40 AM EDT Office Visit Dermatology [address], [place] [address] [place] [address] Amy Mckeon PA-C [address] [place] [address] 09/18/2024 2:30 PM EDT Nurse Only Ancillary [address], [place] [address] [place] [address] [place], Nurse Annual Wellness Cold [address] [place] [address] Health Maintenance Due Date Last Done Comments Zoster Vaccines (2 of 3) 11/17/2013 09/22/2013 COVID-19 Vaccine (2022- season) 2023 05/10/2021, 08/25/2020, 07/28/2020 Depression Monitoring 09/12/2024 09/13/2023 DXA Scan 12/06/2024 12/06/2022, 11/23, 07/13/2020, Additional history exists DTaP,Tdap,and Td Vaccines (3 - Td or Tdap) 12/23/2025 12/24/2015, 05/08/2006 Hepatitis C Screening Completed 10/07/2010 Pneumococcal Vaccine: 65+ Years Completed 10/15/2015, 04/04/2010 Albumin/Creatinine Ratio Discontinued 09/27/2022, 10/2022 Influenza Vaccine (FLU shot) Completed 02/21/2023, 07/13/2022, 03/14/2021, Additional history exists VITAMIN D LEVEL ONCE IN A LIFETIME-USE SMARTSET# [id number] Completed 04/30/2023, 12/21/2021, 09/13/2020, Additional history exists [...] as of this encounter Visit Diagnoses Diagnosis HTN, goal below 150/90 documented in this encounter Care Teams Metal Slitter Relationship Specialty Start Date End Date Jcarlos Mcpherson PA-C [facility] [place] [address] PCP - General Physician Teacher Of The Handicapped 07/10/23 documented as of this encounter
--- OUTSIDE RECORDS SUMMARY | 2024-03-06 04:09 | External Medical Summary | Summary of Care ---
Author Name Unknown Organization [facility] Address [address] [facility] [place] [address] Phone [phone] Care Team Providers Care Historian Dramatic Arts Name Role Phone Jcarlos Laureano PA-C Primary Care Provide r Reason for Visit * Reason Onset Date Comments [facility]: Screening 12/21/2023 Encounter Details Date Type Department Care Team (Late st Contact Info) Description 12/21/2023 Telephone [facility], [place] [address] [facility] [place] [address] Region, Nurse [facility] [address] [facility] [place] [address] [facility]: Screening Allergies Active Allergy Reactions Criticality Noted Date [...] as of this encounter (statuses as of 12/21/2023) Medications Medication Sig Dispensed Refills Start Date [...] needed. Medical Marijuana Capsules Active Nystatin-Triamcinolon e 070806-8.1 UNIT/GM-% External Cream (Mycolog)Indications: Yeast infection Apply [...] (BMI) of 36.0 to 36.9 in adult ([facility]) Inject 2 mg under [...] CUT OR CHEW 90 Capsule 1 12/15/2023 Active CPAP every night at bedtime. 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 Increased risk for Inherited Arrhythmias. Please click [...] as of this encounter (statuses as of 12/21/2023) Resolved Problems Problem Noted Date Diagnosed Date [...] 03/13/2018 Overview: 02/14/18 While on vaction in [place] Facial laceration 02/21/2018 06/27/2021 Overview: 02/14/18 While on vaction in [place] Closed fracture of nasal bones 02/21/2018 06/27/2021 Overview: 02/14/18 While on vaction in [place] Fall on or from sidewalk curb 02/21/2018 03/13/2018 Overview: 02/14/18 While on vaction in [place] History of nonmelanoma skin cancer 06/12/2017 12/20/2017 Overview: BCC nasal bridge 12/02 Trochanteric bursitis of right hip 05/16/2017 12/20/2017 Hx of non anemic vitamin B12 deficiency 04/02/2017 12/20/2017 History of laminectomy 07/26/201612/20 HTN, goal below 150/90 12/24/201508/21 Bronchospasm, exercise-induced 10/07/2012 06/02/2016 Genetic Sleep Disorder [facility] Other*[id number] 10/19/2011 01/20/2016 Other pulmonary embolism and infarction [...] as of this encounter (statuses as of 12/21/2023) Immunizations Name Administration Dates Next Due COVID-19 [...] No 09/12/2023 Does the household have a [facility] source of income? (Household - for ages [...] encounter Miscellaneous Notes * Telephone Encounter - Brenda Schwartz LPN - 12/21/2023 10:50 AM EDT Missy Weems was referred as a potential candidate for enrollment for [facility]. A review of this chart was completed and: Missy does not meet criteria for enrollment into [facility]. Referral Source: Monthly Proactive Eligibility List Criteria for Ineligibility: Not Located in Service Area Referring care team was notified via : [employer] communication Patient is located in service area however was graduated in 2022 and has had no change in conditions since Brenda Schwartz LPN [facility] 12/21/2023,10:50 AM documented in this encounter Plan of Treatment Upcoming Encounters Date Type Department Care Team (Late st Contact Info) Description 01/02/2024 3:15 PM EDT Office Visit Urology, [facility] [address] [facility] [place] [address] Salvador Mireles MD [address] [place] [address] 01/21/2024 4:00 PM EDT Imaging Radiology [facility] [address] [facility] [place] [address] 02/05/2024 8:40 AM EDT Office Visit Dermatology [facility] [address] [facility] [place] [address] Amy Mckeon PA-C [address] [facility] [place] [id number] 05/14/2024 1:00 PM EST Office Visit Allergy/Immunology [facility] [address] [place] [address] Michael Vieira MD [address] [place] [address] 06/20/2024 12:00 PM EST Office Visit Sleep Disorders Ctr [facility] [address] [facility] [place] [phone] Edilma Brown CRNP [address] [facility] [place] [address] 07/10/2024 12:40 PM EST Office Visit Family Practice [facility] [address] [facility] [place] [address] Jcarlos Laureano PA-C [address] [place] [address] 09/18/2024 2:30 PM EDT Nurse Only Ancillary [place] [address] [place] [address] [place], Nurse [facility] [address] [place] [address] Health Maintenance Due Date Last Done Comments Zoster Vaccines (2 of 3) 11/17/2013 09/22/2013 COVID-19 Vaccine ( season) 2023 05/10/2021, 08/25/2020, 07/28/2020 Depression Monitoring [...] D LEVEL ONCE IN A LIFETIME-USE SMARTSET# [id number] Completed 04/30/2023, 12/21/2021, 09/13/2020, Additional history exists [...] filedocumented as of this encounter Care Teams Historian Dramatic Arts Relationship Specialty Start Date End Date Jcarlos Laureano PA-C [address] [place] [address] PCP - General Physician Joint Setter 07/10/23 documented as of this encounter
--- OUTSIDE RECORDS SUMMARY | 2024-03-06 04:09 | External Medical Summary | Summary of Care ---
Author Name Unknown Organization [facility] Address [address] [facility] [address] Phone [phone] Care Team Providers Care Mixing Plant Dumper Name Role Phone Jcarlos Laureano PA-C Primary Care Provide r Encounter Details Date Type Department Care Team (Late st Contact Info) Description 12/17/2023 Population Health External Data Unspecified Department Allergies [...] as of this encounter (statuses as of 12/18/2023) Medications Medication Sig Dispensed Refills Start Date [...] needed. 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 Increased risk for Inherited Arrhythmias. Please click [...] as of this encounter (statuses as of 12/18/2023) Resolved Problems Problem Noted Date Diagnosed Date [...] exercise-induced 10/07/2012 06/02/2016 Genetic Sleep Disorder [facility] Other*[id number] 10/19/2011 01/20/2016 Other pulmonary embolism and infarction [...] as of this encounter (statuses as of 12/18/2023) Immunizations Name Administration Dates Next Due COVID-19 [...] AM EDT Office Visit Sleep Disorders Ctr [address] [place] [phone] Edilma Brown CRNP [address] [facility] [place] [address] 12/18/2023 1:40 PM EDT Office Visit Family Practice [address], [place] [address] [place] [address] Jcarlos Laureano PA-C [address] [place] [address] 01/02/2024 3:15 PM EDT Office Visit Urology, [facility] [address] [place] [address] Salvador Mireles MD [address] [facility] [address] [place] [id number] 02/05/2024 8:40 AM EDT Office Visit Dermatology [address], [place] [address] [place] [address] Amy Mckeon PA-C [address] [place] [address] 05/14/2024 1:00 PM EST Office Visit Allergy/Immunology [facility] [address] [facility] [place] [address] Michael Vieira MD 200 [place] [address] 09/18/2024 2:30 PM EDT Nurse Only Ancillary [address], [place] [address] [place] [address] [place], Nurse Annual Wellness Cold [address] [place] [address] Health Maintenance Due Date Last Done Comments [...] D LEVEL ONCE IN A LIFETIME-USE SMARTSET# [id number] Completed 04/30/2023, 12/21/2021, 09/13/2020, Additional history exists [...] filedocumented as of this encounter Care Teams Mixing Plant Dumper Relationship Specialty Start Date End Date Jcarlos Laureano PA-C [address] [facility] [place] [id number] PCP - General Physician Laborer General 07/10/23 documented as of this encounter
--- OUTSIDE RECORDS SUMMARY | 2024-03-06 04:09 | External Medical Summary | Summary of Care ---
Author Name Unknown Organization [facility] Address [address] [facility] [place] [address] Phone [phone] Care Team Providers Care Roller Picker Name Role Phone Jcarlos Laureano PA-C Primary Care Provide r Reason for Visit * Reason Comments Routine Exam Routine, no new conc erns. Encounter Details Date Type Department Care Team (Late st Contact Info) Description 12/18/2023 1:40 PM EDT Office Visit Family [facility], [place] [address] [place] [id number] Jcarlos Laureano PA-C [address] [facility] [place] [id number] HTN, goal below 150/90*; LUIS (obstructive sleep apnea); Pure hypercholesterolemia; Gastroesophageal reflux disease with esophagitis without hemorrhage; SIMS (nonalcoholic steatohepatitis); DIAN (generalized anxiety disorder); Prediabetes; Class 2 severe obesity due to excess calories with serious comorbidity and body mass index (BMI) of 35.0 to 35.9 in adult ([facility]); MTHFR mutation; ILD (interstitial lung disease) ([facility]); History of pulmonary embolism; Age-related osteoporosis without current pathological fracture; Encounter for screening mammogram for breast cancer Allergies Active Allergy Reactions Criticality Noted [...] needed. Medical Marijuana Capsules Active Nystatin-Triamcinolon e 425259-4.1 UNIT/GM-% External Cream (Mycolog)Indications: Yeast infection Apply [...] gene variant (c.1081 C>T, p.(Q361*)) detected via [email or web address]. Increased risk for Inherited Arrhythmias. Please click [...] 03/13/2018 Overview: 02/14/18 While on vaction in [place] Facial laceration 02/21/2018 06/27/2021 Overview: 02/14/18 While on vaction in [place] Closed fracture of nasal bones 02/21/2018 06/27/2021 Overview: 02/14/18 While on vaction in [place] Fall on or from sidewalk curb 02/21/2018 03/13/2018 Overview: 02/14/18 While on vaction in [place] History of nonmelanoma skin cancer 06/12/2017 12/20/2017 Overview: BCC nasal bridge 12/02 Trochanteric bursitis of right hip 05/16/2017 12/20/2017 Hx of non anemic vitamin B12 deficiency 04/02/2017 12/20/2017 History of laminectomy 07/26/201612/20 HTN, goal below 150/90 12/24/201508/21 Bronchospasm, exercise-induced 10/07/2012 06/02/2016 Genetic Sleep Disorder [facility] Other*[id number] 10/19/2011 01/20/2016 Other pulmonary embolism and infarction [...] 25 1 - 04/05/1990 Smokeless Tobacco: Never Tobacco Cessation:Counseling Given: Not Answered Alcohol Use Standard Drinks/Week Comments Yes 2 [...] on file documented as of this encounter Last Filed Vital Signs Vital Sign Reading Time Taken Comments Blood Pressure 118/70 12/18/2023 1:33 PM EDT Pulse 88 12/18/2023 1:33 PM EDT Temperature 36.1 C (97 F) 12/18/2023 1:33 PM EDT Respiratory Rate 18 12/18/2023 1:33 PM EDT Oxygen Saturation 98% 12/18/2023 1:33 PM EDT Inhaled Oxygen Concentration - - Weight 77 kg (169 lb 12.8 oz) 12/18/2023 1:33 PM EDT Height 147.3 cm (4' 10") 12/18/2023 1:33 PM EDT Body Mass Index 35.49 12/18/2023 1:33 PM EDT documented in this encounter Progress Notes * Jcarlos Laureano PA-C - 12/18/2023 1:43 PM EDT Images from the original note were not included. History of Present Illness Missy Weems is a 78 year old female that presents for routine visit. No acute complaints today. Hx of prediabetes. Continues on ozempic. Has lost > 40 lbs. Due for labs. Follows with cardiology for history of prolonged QT, abnormal genetic testing, hypertension, and hyperlipidemia. Last visit 08/2023. History of genetic mutations. Has seen genetics. She denies chest pain or shortness of breath. Last stress test 01/2022 was negative for ischemia, EF 55-60%, no significant valve disease. - overall feels well/unchanged from cardiac standpoint. History of LUIS, using CPAP. Follows with sleep apnea. Blood pressure excellent today. Follows with Urology for vaginal atrophy and recurrent UTIs. Follows regularly with pulmonary for hx of ILD and recurrent PE's. 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 Last documented visit 01/2023. Continues on eliquis. She also has history of IVC filter placed in 2011. Not a candidate for removal. - no change in SOB. States she can walk for about 6 minutes straight, unsure how far she can walk. History of GERD, doing well on PPI. Follows with rheumatology for osteoporosis. Continues on Fosamax. Mammogram 12/2022 normal. Will schedule repeat. Colonoscopy 05/2019 showed diverticulosis and internal hemorrhoids. Patient Active Problem List Diagnosis Lumbar spinal stenosis LUIS (obstructive sleep apnea) SIMS (nonalcoholic steatohepatitis) DIAN (generalized anxiety disorder) Dyslipidemia BPPV (benign paroxysmal positional vertigo) Primary osteoarthritis of both knees Gastroesophageal reflux disease with esophagitis Presence of IVC filter Methylenetetrahydrofolate reductase (MTHFR) deficiency (HCC) Seasonal allergic rhinitis due to pollen Major depressive disorder with single episode, in full remission ([facility]) 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 Recurrent UTI High risk for fracture due to osteoporosis by DEXA scan Vaginal atrophy Medical marijuana use Stress incontinence of urine Monoallelic mutation of KCNQ1 gene Primary open-angle glaucoma, bilateral, mild stage Morbid obesity ([facility]) Sacroiliitis, not elsewhere classified ([facility]) Pure hypercholesterolemia Impingement syndrome of left shoulder Review of patient's allergies indicates: Allergen Reactions Compazine Neuro complications (Please comment) and Other (Please comment) Naproxen Sodium Other Reaction(s): SOB, HIVES WITH ALEVE Adhesive Tape Blister Latex Other Reaction(s): blisters Levofloxacin Other Reaction(s): Unknown Lovenox [Enoxaparin Sodium] Yeast infection Macrobid [Nitrofurantoin] Nausea/vomiting Morphine Itching Penicillins Other Reaction(s): occured as a child, severe itching Ibuprofen Other Reaction(s): HIVES Current Outpatient Medications Medication Sig Dispense Refill Alendronate Sodium 70 MG Oral Tablet (Fosamax) TAKE ONE TABLET BY MOUTH ONCE A WEEK WITH 8 OZ OF WATER 30 MINUTES BEFORE FIRST MEAL OF THE DAY. REMAIN UPRIGHT FOR 30 MINUTES AFTER TAKING TABLET 15 Tablet 3 Estradiol 0.1 MG/GM Vaginal Cream (Estrace) Apply [...] BY MOUTH AT BEDTIME 200 Tablet 3 Sulfamethoxazole-Trimethoprim 400-80 MG Oral Tablet (Bactrim) Take 1 Tablet by mouth at bedtime. 90Tablet 3 Folic Acid 1 MG Oral Tablet [...] 1 Tablet by mouth in the morning. Levocetirizine Dihydrochloride 5 MG Oral Tablet (Xyzal Allergy 24HR) Take 1 Tablet by mouth at bedtime. Diclofenac Sodium 1 % External Gel (Voltaren) Apply a small amount to the affected area daily as needed NATURAL SUPPLEMENT Take 1 Capsule by mouth daily as needed. Medical Marijuana Capsules Nystatin-Triamcinolone 445578-5.1 UNIT/GM-% External Cream (Mycolog) Apply to affected [...] Capsule 1 CPAP every night at bedtime. Diclofenac Sodium 75 MG Oral Tablet Delayed Release (Voltaren) Take 1 Tablet by mouth 2 times a dayas needed. (Patient not taking: Reported on 12/18/2023) No current facility-administered medications for this visit. Past Medical History: Diagnosis Date Arthritis of knee right Calculus of kidney Carcinoma in situ of other specified sites of skin nose 2009 Closed fracture of nasal bones 02/21/2018 02/14/18 While on vaction in [place] Contusion of face 02/21/2018 02/14/18 While on vaction in [place] Coronary artery disease (CAD) excluded negative nuclear stress test Cyst of bursa right knee Esophageal reflux Facial laceration 02/21/2018 02/14/18 While on vaction in [place] Facial laceration 02/21/2018 02/14/18 While on vaction in [place] Fall on or from sidewalk curb 02/21/2018 02/14/18 While on vaction in [place] Fatty liver disease, nonalcoholic HTN, goal below 140/90 Lipoma of unspecified site 3 total Normal cardiac stress test 06/2011 nuclear LUIS (obstructive sleep apnea) mild not on c-pap PE (pulmonary embolism) 05/2011 workup +ve MTHFR homo ,nl homocysteine Seasonal allergic rhinitis due to pollen 09/11/2018 Sleep apnea, obstructive Spinal stenosis, unspecified region other than cervical L 5 Past Surgical History: Procedure Laterality Date ARTHROPLASTY KNEE TOTAL Right 03/2018 COLONOSCOPY, DIAGNOSTIC (RECTUM) 06/04/2019 diverticulosis / [facility] COLORECTAL CANCER SCREEN; NOT AT RISK 07/13/2010 normal colon exam repeat in 10 years EGD, FLEXIBLE, DIAGNOSTIC 09/03/2012 UPPER GI ENDOSCOPY DIAGNOSTIC performed by David Grimes MD at [facility], no evidence of celiac disease or infection, symptoms most likely related to potassium supplements EGD, FLEXIBLE, DIAGNOSTIC 06/04/2019 acid reflux / [facility] EXC BREAST LESION RADMARK Right 11/09/2015 EXCISION OF BREAST LESION RADIOLOGICAL MARKER performed by Missy Cordero MD at OR [facility] dx right breast tissue 9:00, needle localized excision breast tissue with focal areas of fibrocystic changeand abudant mature adipose tissue - EXC BREAST LESION RADMARK Right 03/09/2020 EXCISION OF BREAST LESION RADIOLOGICAL MARKER performed by Haresh Moulton MD at OR [facility] IR FILTER PLACEMENT VENA CAVA 06/23/11 MISCELLANEOUS ORDER ([facility] ONLY) 2012 spinal fusion REMOVAL OF APPENDIX 1950 REMOVAL OF LINGUAL TONSIL 1947 REMOVE GALLBLADDER 1964 SACROILIAC JOINT INJECT W/GUIDANCE 03/01/2022 INJECTION SACROILIAC JOINT performed by Leonard Ocampo DO at OR [facility] SACROILIAC JOINT INJECT W/GUIDANCE 10/04/2022 INJECTION SACROILIAC JOINT performed by Leonard Ocampo, at OR [facility] SACROILIAC JOINT INJECT W/GUIDANCE 01/10/2023 INJECTION SACROILIAC JOINT performed by Leonard Ocampo, at OR [facility] SACROILIAC JOINT INJECT W/GUIDANCE 06/06/2023 INJECTION SACROILIAC JOINT performed by Leonard Ocampo DO at OR [facility] SPINAL FUSION, LUMBAR, COMBINED 2012 Dr. Garcia TOTAL ABD HYSTERECTOMY W/WO REMOVAL OF TUBE(S) 1979 for fibroid TREAT NOSE FX W/STABILIZATION Right 02/28/2018 CLOSED TREATMENT NASAL FRACTURE WITH STABILIZATION performed by James De Jesus DO at OR [facility] Family History Problem Relation Name Age of Onset Lymphoma Mother Heart Disorder Father age 91 Rheum arthritis Father Other (hemochromotosis) Sister Rheum arthritis Sister Other (hemochromotosis) Brother Rheum arthritis Brother Rheum arthritis Brother Rheum arthritis Brother Family Status Relation Status Mo at age 84 cancer lymphoma Fa at age 91 "broken heart" Sis Alive Bro Alive Bro Alive Bro at age 20 MVA Son Alive Son Alive Social History Socioeconomic History Marital status: Spouse name: Lemuel Number of children: 2 Years of education: 12 Occupational History Occupation: retired /[employer] Tobacco Use Smoking status: Former Current packs/day: 0.00 Average packs/day: 0.5 packs/day for 25.0 years (12.5 ttl pk-yrs) Types: Cigarettes Start date: 04/05/1965 Quit date: 04/05/1990 Years since quittin.7 Smokeless tobacco: Never Vaping Use Vaping status: Never Used Substance and Sexual Activity Alcohol use: Yes Alcohol/week: 2.0 standard drinks of alcohol Types: 2 12 oz of beer per week Drug use: Yes Frequency: 2.0 times per week Comment: Medical marijuana for sleep and pain, capsules Sexual activity: Not Currently Partners: Male Other Topics Concern Seat Belt Yes Comment: some times Social Determinants of Health Financial Resource Strain: Low Risk (09/12/2023) Financial Resource Strain Do you have any trouble paying for your medications, or do you think you might in the future? (Adult - for ages 18 years and over): No Food Insecurity: No Food Insecurity (09/12/2023) Food Insecurity Do you need food for this week? (Adult - for ages 18 years and over): No Transportation Needs: No Transportation Needs (09/12/2023) Transportation Needs Do you have trouble getting a ride to medical visits or work? (Adult - for ages 18 years and over):Never True Social Connections: Socially Integrated (09/12/2023) Social Connections How often do you feel lonely or isolated from those around you? (Adult - for ages 18 years and over): Rarely Housing Stability: Low Risk (09/12/2023) Housing Stability Do you currently live in a custodial or have no steady place to sleep at night? (Adult - for ages 18 years and over): No Do you think you are at risk of becoming homeless? (Adult - for ages 18 years and over): No Review of Systems Constitutional: Negative. Negative for chills and fever. HENT: Negative. Eyes: Negative. Respiratory: Positive for shortness of breath. Cardiovascular: Negative. Negative for chest pain, palpitations and leg swelling. Gastrointestinal: Negative. Negative for abdominal pain, blood in stool, constipation, diarrhea, nausea and vomiting. Endocrine: Negative. Genitourinary: Negative. Musculoskeletal: Negative. Skin: Negative. Negative for rash. Allergic/Immunologic: Negative. Neurological: Negative. Negative for syncope and light-headedness. Hematological: Negative. Psychiatric/Behavioral: Negative. Negative for dysphoric mood. The patient is not nervous/anxious. All other systems reviewed and are negative. Physical Exam BP 118/70 | Pulse 88 | Temp 36.1 C (97 F) | Resp 18 | Ht 1.473 m (4' 10") | Wt 77 kg (169 lb 12.8 oz) | LMP (LMP Unknown) | SpO2 98% | BMI 35.49 kg/m | BSA 1.77 m Physical Exam Vitals and nursing note reviewed. Constitutional: Appearance: Normal appearance. She is obese. HENT: Head: Normocephalic and atraumatic. Right Ear: Tympanic membrane, ear canal and external ear normal. Left Ear: Tympanic membrane, ear canal and external ear normal. Nose: Nose normal. Mouth/Throat: Mouth: Mucous membranes are moist. Pharynx: Oropharynx is clear. Eyes: Extraocular Movements: Extraocular movements intact. Conjunctiva/sclera: Conjunctivae normal. Pupils: Pupils are equal, round, and reactive to light. Cardiovascular: Rate and Rhythm: Normal rate and regular rhythm. Pulses: Normal pulses. Heart sounds: Normal heart sounds. No murmur heard. Pulmonary: Effort: Pulmonary effort is normal. Breath sounds: No wheezing, rhonchi or rales. Comments: Mildly diminished breath sounds in all lung montemayor Abdominal: General: Abdomen is flat. Bowel sounds are normal. Palpations: Abdomen is soft. Tenderness: There is no abdominal tenderness. There is no guarding or rebound. Musculoskeletal: General: Normal range of motion. Cervical back: Normal range of motion and neck supple. Skin: General: Skin is warm. Neurological: General: No focal deficit present. Mental Status: She is alert and oriented to person, place, and time. Psychiatric: Mood and Affect: Mood normal. Behavior: Behavior normal. Thought Content: Thought content normal. Judgment: Judgment normal. I have reviewed most recent labs BMP results Recent Labs Units 04/30/23 1443 09/27/22 1455 09/06/22 0902 SODIUM - [facility] mmol/L 140 141 144 POTASSIUM - [facility] mmol/L 4.6 4.5 4.4 CHLORIDE - [facility] mmol/L 102 107 107 CO2 - [facility] mmol/L 27 25 24 CREATININE - [facility] mg/dL 0.7 0.8 0.7 BUN - [facility] mg/dL 16 23* 19 Lipid panel results Recent Labs Units 04/30/23 1443 09/27/22 1455 06/29/22 1507 CHOLESTEROL - [facility] mg/dL 223* 148 163 LDL CHOLESTEROL (CALCULATED) - [facility] mg/dL 140* 76 91 HDL CHOLESTEROL - [facility] mg/dL 42* 40* 42* TRIGLYCERIDES - [facility] mg/dL 207* 160 152 CBC results Recent Labs Units 04/30/23 1443 09/27/22 1455 09/06/22 0902 WBC K/uL 4.55 4.38 5.99 HGB g/dL 14.2 14.0 14.6 HCT % 45.6* 44.1 46.5* PLT K/uL 191 179 176 HbA1c results Recent Labs Units 04/30/23 1443 09/27/22 1455 06/29/22 1507 HEMOGLOBIN A1C - [facility] % 5.2 5.8* 5.9* TSH results Recent Labs Units 04/30/23 1443 09/27/22 1455 06/29/22 1507 TSH - [facility] uIU/mL 1.04 1.45 0.97 Vitamin D results Recent Labs Units 04/30/23 1443 12/21/21 0802 25-HYDROXY VITAMIN D - [facility] ng/mL 41 40 Hepatic panel results Recent Labs Units 04/30/23 1443 09/27/22 1455 09/06/22 0902 PROTEIN - [facility] g/dL 6.3 6.5 6.3 BILIRUBIN, TOTAL - [facility] mg/dL 0.2 0.3 0.3 ALKALINE PHOSPHATASE - [facility] U/L 77 70 82 AST - [facility] U/L 21 23 26 ALT - [facility] U/L 19 31 34 Protein/cr ratio results No results for input(s): "PROCRRATIO" in the last [id number] hours. Assessment and Plan HTN, goal below 150/90 BP well controlled. Continue current medical therapy. - HEMOGLOBIN A1C; Future - LIPID PANEL WITH DIRECT LDL IF TG IS HIGH; Future - BASIC METABOLIC PANEL; Future LUIS (obstructive sleep apnea) Wearing CPAP as instructed. - HEMOGLOBIN A1C; Future - LIPID PANEL WITH DIRECT LDL IF TG IS HIGH; Future - BASIC METABOLIC PANEL; Future Pure hypercholesterolemia Update labs. - HEMOGLOBIN A1C; Future - LIPID PANEL WITH DIRECT LDL IF TG IS HIGH; Future - BASIC METABOLIC PANEL; Future Gastroesophageal reflux disease with esophagitis without hemorrhage Currently well controlled. SIMS (nonalcoholic steatohepatitis) DIAN (generalized anxiety disorder) Stable. - HEMOGLOBIN A1C; Future - LIPID PANEL WITH DIRECT LDL IF TG IS HIGH; Future - BASIC METABOLIC PANEL; Future Prediabetes Update A1C. - HEMOGLOBIN A1C; Future - LIPID PANEL WITH DIRECT LDL IF TG IS HIGH; Future - BASIC METABOLIC PANEL; Future Class 2 severe obesity due to excess calories with serious comorbidity and body mass index (BMI) of35.0 to 35.9 in adult (HCC) MTHFR mutation ILD (interstitial lung disease) (HCC) Continue to follow with pulm. History of pulmonary embolism Continue AC. Age-related osteoporosis without current pathological fracture Follows with rheum. Encounter for screening mammogram for breast cancer - MAMMOGRAM SCREENING NAVA BILATERAL; Future Wrap-Up Follow Up: Return in about 6 months (around 06/18/2024), or if symptoms worsen or fail to improve, for Return with AP. | For: Return with AP Time: I spent a total of 20-29 minutes (exact time 24 mins) on the date of service in preparation, delivery, and documentation of the care provided to Missy Weems excluding any time spent in the performance of separately billed services. documented in this encounter Nursing Notes * Mel Chicas LPN - 12/18/2023 1:35 PM EDT Chief Complaint Patient presents with Routine Exam Routine, no new concerns. documented in this encounter Miscellaneous Notes * Pt Handout (on AVS) - Jcarlos Laureano PA-C - 12/18/2023 1:51 PM EDT Images from the original note were not included. [id number] What Is Osteoporosis? Osteoporosis is a disease that weakens the bones. Weakened bones are more likely to break (fracture). Osteoporosis can affect anyone. But those most at risk are postmenopausal people who were assigned female at . To help prevent osteoporosis, you need to exercise and nourish your bones throughout your life. Childhood The body builds the most bone during these years. That's why children need foods rich in calcium. They also need plenty of exercise. A healthy diet and exercise helps bones grow strong. Young adulthood to age 30 During young adulthood, bones become their strongest. This is called peak bone mass. The same good habits that kept bones healthy in childhood help keep bones healthy in adulthood. Age 30 to menopause Bone mass declines slightly during these years. Your body makes just enough new bone to maintain peak bone mass. To keep your bones at their peak mass, be sure to exercise and get plenty of calcium. After menopause Menopause is when a person who was assigned female at stops having monthly periods. After menopause, the body makes less estrogen (female hormone). This increases bone loss. At this point, treatment may be needed to reduce the risk for fracture. Exercise and calcium can also help keep your bones strong. Later in life In later years, all adults need to take extra care of their bones. By this point, the body loses more bone than it makes. If too much bone is lost, you may be at increased risk for fractures. With age, the quality and quantity of bone declines. You can lessen bone loss by staying active and increasing your calcium intake. Calcium supplements and other osteoporosis treatments do have risks. So talk with your healthcare provider if you have concerns. If you have osteoporosis, you can also learn ways to increase everyday safety. Last Reviewed Date: 05/25/[id number] [employer]. All rights reserved. This information is not intended as a substitute for professional medical care. Always follow your healthcare professional's instructions. documented in this encounter Plan of Treatment Upcoming Encounters Date Type Department Care Team (Late st Contact Info) Description 01/02/2024 3:15 PM EDT Office Visit Urology, [facility] [address] [facility] [place] [address] Salvador Mireles MD [address] [place] [address] [place] [address] 01/21/2024 4:00 PM EDT Imaging Radiology [address] [facility] [place] [id number] 02/05/2024 8:40 AM EDT Office Visit Dermatology [address], [place] [address] [place] [address] Amy Mckeon PA-C [address] [place] [id number] 05/14/2024 1:00 PM EST Office [facility] [address] [place] [address] Michael Vieira MD [address] [place] [address] 06/20/2024 12:00 PM EST Office Visit [facility] [place] [id number] Edilma Brown CRNP [address] [facility] [address] 07/10/2024 12:40 PM EST Office Visit Family Practice [address], [place] [address] [facility] [place] [id number] Jcarlos Laureano PA-C [address] [facility] [place] [id number] 09/18/2024 2:30 PM EDT Nurse Only Anc[address], [place] [address] [facility] [place] [address] [place], Nurse Annual Wellness [address] [facility] [place] [id number] Scheduled Orders Name Type Priority Associated Diagnoses Orde r Schedule MAMMOGRAM SCREENING NAVA BILATERAL Medical Imaging Routine Encounter for screening mammogram for breast cancer Expected: 01/21/2024 (Approximate), Expires: 01/16/2025 HEMOGLOBIN A1C Lab Routine HTN, goal below 150/90 LUIS (obstructive sleep apnea) Pure hypercholesterolemia DIAN (generalized anxiety disorder) Prediabetes Expected: 12/18/2023 (Approximate), Expires: 12/17/2024 LIPID PANEL WITH DIRECT LDL IF TG IS HIGH Lab Routine HTN, goal below 150/90 LUIS (obstructive sleep apnea) Pure hypercholesterolemia DIAN (generalized anxiety disorder) Prediabetes Expected: 12/18/2023, Expires: 12/17/2024 BASIC METABOLIC PANEL Lab Routine HTN, goal below 150/90 LUIS (obstructive sleep apnea) Pure hypercholesterolemia DIAN (generalized anxiety disorder) Prediabetes Expected: 12/18/2023 (Approximate), Expires: 12/17/2024 Health Maintenance Due Date Last Done Comments Zoster Vaccines (2 of 3) 11/17/2013 09/22/2013 COVID-19 Vaccine (4 - season) 2023 05/10/2021, 08/25/2020, 07/28/2020 Depression Monitoring [...] D LEVEL ONCE IN A LIFETIME-USE SMARTSET# [id number] Completed 04/30/2023, 12/21/2021, 09/13/2020, Additional history exists [...] encounter Visit Diagnoses Diagnosis HTN, goal below 150/90- Primary LUIS (obstructive sleep apnea) Obstructive sleep apnea (adult) (pediatric) Pure hypercholesterolemia Gastroesophageal reflux disease with esophagitis without hemorrhage SIMS (nonalcoholic steatohepatitis) Other chronic nonalcoholic liver disease DIAN (generalized anxiety disorder) Generalized anxiety disorder Prediabetes Other abnormal glucose Class 2 severe obesity due to excess calories with serious comorbidity and body mass index (BMI) of 35.0 to 35.9 in adult (HCC) 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
--- OUTSIDE RECORDS SUMMARY | 2024-03-06 04:09 | External Medical Summary | Summary of Care ---
Author Name Unknown Organization [facility] Address [address] [facility] [place] [address] Phone [phone] Care Team Providers Care Student Counsellor Name Role Phone Jcarlos Mcpherson PA-C Primary Care Provide r Reason for Visit * Reason Comments Medication Refill Encounter Details Date Type Department Care Team (Late st Contact Info) Description 12/11/2023 Refill Family Practice [facility], [place] [address] [facility] [place] [id number] Jcarlos Mcpherson PA-C [address] [facility] [place] [address] Class 2 severe obesity due to [...] as of this encounter (statuses as of 12/12/2023) Medications Medication Sig Dispensed Refills Start Date End Date Status Alendronate Sodium 70 MG Oral Tablet (Fosamax)Indications :Age-related osteoporosis without current pathological fracture TAKE ONE TABLET BY MOUTH ONCE A WEEK WITH 8 OZ OF WATER 30 MINUTES BEFORE FIRST MEAL OF THE DAY. REMAIN UPRIGHT FOR 30 MINUTES AFTER TAKING TABLET 15 Tablet 3 12/15/2022 4 Active DULoxetine HCl 60 MG Oral Capsule Delayed Release Particles (Cymbalta)Indication s:HTN, goal below 150/90 TAKE ONE CAPSULE BY MOUTH EVERY DAY DO NOT CRUSH, CUT OR CHEW 90 Capsule 3 11/24/2022 4 Active Estradiol 0.1 MG/GM Vaginal Cream [...] at bedtime. 90 Tablet 3 05/24/2023 Active Omeprazole 40 MG Oral Capsule Delayed Release (PriLOSEC)Indication s:Gastroesophageal reflux disease with esophagitis without hemorrhage Take 1 Capsule by mouth in the morning. 90 Capsule 1 06/28/2023 Active Folic Acid 1 MG Oral TabletIndications:MT [...] needed. Medical Marijuana Capsules Active Nystatin-Triamcinolo ne 914395-8.1 UNIT/GM-% External Cream (Mycolog)Indications :Yeast infection Apply [...] of 36.0 to 36.9 in adult ([facility]) Inject 2 mg under the skin once a week. 3 mL 2 12/12/2023 Active Ozempic (2 MG/DOSE) 8 MG/3ML Subcutaneous Solution Pen-injector (Semaglutide (2 MG/DOSE))Indications :Class 2 severe obesity due to excess calories with serious comorbidity and body mass index (BMI) of 36.0 to 36.9 in adult ([facility]) Inject 2 mg under the skin once a week. 3 mL 2 08/21/2023 4 Discontinu ed(Refill) documented as of this encounter (statuses as of 12/12/2023) Active Problems Problem Noted Date Diagnosed Date Impingement syndrome of left shoulder 09/05/2022 Sacroiliitis, not elsewhere classified 3 Pure hypercholesterolemia 06/29/2022 Primary open-angle glaucoma, bilateral, mild sta ge 05/04/2022 Morbid obesity 05/04/2022 Monoallelic mutation of KCNQ1 gene 12/15/2021 Overview: likely pathogenic KCNQ1 gene variant (c.1081 C>T, p.(Q361*)) detected via [employer]. Increased risk for Inherited Arrhythmias. Please click [...] as of this encounter (statuses as of 12/12/2023) Resolved Problems Problem Noted Date Diagnosed Date [...] exercise-induced 10/07/2012 06/02/2016 Genetic Sleep Disorder [facility] Other*[id number] 10/19/2011 01/20/2016 Other pulmonary embolism and infarction [...] as of this encounter (statuses as of 12/12/2023) Immunizations Name Administration Dates Next Due COVID-19 [...] Notes * Telephone Encounter - Jim Lackey RPh - 12/12/2023 9:41 AM EDTSigned Prescriptions: Disp Refills Ozempic (2 MG/DOSE) 8 MG/3ML Subcutaneous *3 mL 2 Sig: Inject 2 mg under the skin once a week.Authorizing Provider: JCARLOS MCPHERSON User: JIM LACKEY documented in this encounter Plan of Treatment Upcoming Encounters Date Type Department Care Team (Late st Contact Info) Description 12/18/2023 10:00 AM EDT Office Visit Sleep Disorders Ctr [facility] [address] [place] [phone] Edilma Brown CRNP [address] [place] [address] 12/18/2023 1:40 PM EDT Office Visit Family [facility] [address] [place] [address] Jcarlos Mcpherson PA-C [address] [place] [id number] 12/21/2023 10:00 AM EDT [facility] [address] [place] [address] Michael Vieira MD 200 [facility] [place] [address] 01/02/2024 3:15 PM EDT Office Visit Urology, [facility] [address] [facility] [place] [address] Salvador Mireles MD 27 [facility] [place] [address] [place] [address] 02/05/2024 8:40 AM EDT Office Visit Dermatology [address], [place] [address] [place] [address] Amy Mckeon PA-C [address] [place] [address] 09/18/2024 2:30 PM EDT Nurse Only Ancillary [address], [place] [address] [place] [address] [place], Nurse Annual Wellness [place] [address] [place] [address] Health Maintenance Due Date Last Done Comments [...] D LEVEL ONCE IN A LIFETIME-USE SMARTSET# [id number] Completed 04/30/2023, 12/21/2021, 09/13/2020, Additional history exists [...] of 36.0 to 36.9 in adult (HCC) documented in this encounter Care Teams Student Counsellor Relationship Specialty Start Date End Date Jcarlos Mcpherson PA-C [address] [facility] [place] [address] PCP - General Physician Residential Youth Counselor 07/10/23 documented as of this encounter
--- OUTSIDE RECORDS SUMMARY | 2024-03-06 04:09 | External Medical Summary | Summary of Care ---
Author Name Unknown Organization [facility] Address [address] [facility] [place] [address] Phone [phone] Care Team Providers Care Judo Instructor Name Role Phone Jcarlos Mcpherson PA-C Primary Care Provide r Reason for Visit * Reason Comments Medication Refill Encounter Details Date Type Department Care Team (Late st Contact Info) Description 12/14/2023 Refill Family Practice [facility], [place] [address] [facility] [place] [address] Jcarlos Mcpherson PA-C [address] [facility] [place] [address] Gastroesophageal reflux disease with esophagitis without hemorrhage Allergies Active Allergy Reactions Criticality Noted Date [...] as of this encounter (statuses as of 12/14/2023) Medications Medication Sig Dispensed Refills Start Date [...] needed. Medical Marijuana Capsules Active Nystatin-Triamcinolo ne 554721-2.1 UNIT/GM-% External Cream (Mycolog)Indications :Yeast infection Apply [...] (BMI) of 36.0 to 36.9 in adult ([facility]) Inject 2 mg under the skin once a week. 3 mL 2 12/12/2023 Active Omeprazole 40 MG Oral Capsule Delayed Release (PriLOSEC)Indication s:Gastroesophageal reflux disease with esophagitis without hemorrhage Take 1 Capsule by mouth in the morning. 90 Capsule 2 12/14/2023 Active Omeprazole 40 MG Oral Capsule Delayed Release (PriLOSEC)Indication s:Gastroesophageal reflux disease with esophagitis without hemorrhage Take 1 Capsule by mouth in the morning. 90 Capsule 1 06/28/2023 4 Discontinu ed(Refill) documented as of this encounter (statuses as of 12/14/2023) Active Problems Problem Noted Date Diagnosed Date Impingement syndrome of left shoulder 09/05/2022 Sacroiliitis, not elsewhere classified 3 Pure hypercholesterolemia 06/29/2022 Primary open-angle glaucoma, bilateral, mild sta ge 05/04/2022 Morbid obesity 05/04/2022 Monoallelic mutation of KCNQ1 gene 12/15/2021 Overview: likely pathogenic KCNQ1 gene variant (c.1081 C>T, p.(Q361*)) detected via [employer]. Increased risk for Inherited Arrhythmias. Please click [...] as of this encounter (statuses as of 12/14/2023) Resolved Problems Problem Noted Date Diagnosed Date [...] 03/13/2018 Overview: 02/14/18 While on vaction in [place] Facial laceration 02/21/2018 06/27/2021 Overview: 02/14/18 While on vaction in [place] Closed fracture of nasal bones 02/21/2018 06/27/2021 Overview: 02/14/18 While on vaction in [place] Fall on or from sidewalk curb 02/21/2018 03/13/2018 Overview: 02/14/18 While on vaction in [place] History of nonmelanoma skin cancer 06/12/2017 12/20/2017 Overview: BCC nasal bridge 12/02 Trochanteric bursitis of right hip 05/16/2017 12/20/2017 Hx of non anemic vitamin B12 deficiency 04/02/2017 12/20/2017 History of laminectomy 07/26/201612/20 HTN, goal below 150/90 12/24/201508/21 Bronchospasm, exercise-induced 10/07/2012 06/02/2016 Genetic Sleep Disorder [facility] Other*[id number] 10/19/2011 01/20/2016 Other pulmonary embolism and infarction [...] as of this encounter (statuses as of 12/14/2023) Immunizations Name Administration Dates Next Due COVID-19 [...] encounter Miscellaneous Notes * Telephone Encounter - Pam Monroe [facility] - 12/14/2023 6:29 PM EDTSigned Prescriptions: Disp Refills Omeprazole 40 MG Oral Capsule Delayed Rele*90 Cap*2 Sig: Take 1 Capsule by mouth in the morning.Authorizing Provider: JCARLOS MCPHERSON User: PAM MONROE documented in this encounter Plan of Treatment Upcoming Encounters Date Type Department Care Team (Late st Contact Info) Description 12/18/2023 10:00 AM EDT Office Visit Sleep Disorders Ctr [facility] [address] [facility] [place] [phone] Edilma Brown CRNP [address] [facility] [place] [address] 12/18/2023 1:40 PM EDT Office Visit Family Practice [place] [address] [place] [address] Jcarlos Mcpherson PA-C [address] [place] [address] 12/21/2023 10:00 AM EDT Office Visit Allergy/Immunology [facility] [place] [address] [place] [address] Michael Vieira MD [address] [place] [address] 01/02/2024 3:15 PM EDT Office Visit Urology, [facility] [address] [place] [address] Salvador Mireles MD 27 [facility] [place] [address] [place] [address] 02/05/2024 8:40 AM EDT Office Visit Dermatology [address], [place] [address] [place] [address] Amy Mckeon PA-C [address] [place] [address] 09/18/2024 2:30 PM EDT Nurse Only Ancillary [address], [place] [address] [place] [address] [place], Nurse Annual Wellness Cold [address] [place] [address] Health Maintenance Due Date Last Done Comments Zoster Vaccines (2 of 3) 11/17/2013 09/22/2013 COVID-19 Vaccine ( - 2022- season) 2023 05/10/2021, 08/25/2020, 07/28/2020 Depression Monitoring [...] D LEVEL ONCE IN A LIFETIME-USE SMARTSET# [id number] Completed 04/30/2023, 12/21/2021, 09/13/2020, Additional history exists [...] as of this encounter Visit Diagnoses Diagnosis Gastroesophageal reflux disease with esophagitis without hemorrhage documented in this encounter Care Teams Judo Instructor Relationship Specialty Start Date End Date Jcarlos Mcpherson PA-C [address] [facility] [place] [id number] PCP - General Physician Docent Coordinator 07/10/23 documented as of this encounter
--- OUTSIDE RECORDS SUMMARY | 2024-03-06 04:09 | External Medical Summary | Summary of Care ---
Author Name Unknown Organization [facility] Address [address] [facility] [place] [address] Phone [phone] Care Team Providers Care Curing Room Supervisor Name Role Phone Jcarlos Laureano PA-C Primary Care Provide r Reason for Visit * Reason Comments Follow Up Encounter Details Date Type Department Care Team (Late st Contact Info) Description 12/18/2023 10:00 AM EDT Office Visit Sleep Disorders Ctr [facility] [address] [place] [phone] Edilma Brown CRNP [address] [place] [address] Obstructive sleep apnea* Allergies Active Allergy Reactions Criticality Noted Date [...] needed. Medical Marijuana Capsules Active Nystatin-Triamcinolon e 892663-1.1 UNIT/GM-% External Cream (Mycolog)Indications: Yeast infection Apply [...] gene variant (c.1081 C>T, p.(Q361*)) detected via [employer]. Increased risk for Inherited Arrhythmias. Please click [...] 03/13/2018 Overview: 02/14/18 While on vaction in [place] Facial laceration 02/21/2018 06/27/2021 Overview: 02/14/18 While on vaction in [place] Closed fracture of nasal bones 02/21/2018 06/27/2021 Overview: 02/14/18 While on vaction in [place] Fall on or from sidewalk curb 02/21/2018 03/13/2018 Overview: 02/14/18 While on vaction in [place] History of nonmelanoma skin cancer 06/12/2017 12/20/2017 Overview: BCC nasal bridge 12/02 Trochanteric bursitis of right hip 05/16/2017 12/20/2017 Hx of non anemic vitamin B12 deficiency 04/02/2017 12/20/2017 History of laminectomy 07/26/201612/20 HTN, goal below 150/90 12/24/201508/21 Bronchospasm, exercise-induced 10/07/2012 06/02/2016 Genetic Sleep Disorder [facility] Other*[id number] 10/19/2011 01/20/2016 Other pulmonary embolism and infarction [...] Sign Reading Time Taken Comments Blood Pressure 118/90 12/18/2023 10:20 AM EDT Pulse 67 12/18/2023 9:49 AM EDT Temperature 37.3 C (99.1 F) 12/18/2023 9:49 AM ED T Respiratory Rate 20 12/18/2023 9:49 AM EDT Oxygen Saturation 92% 12/18/2023 9:49 AM EDT ra, rest Inhaled Oxygen Concentration - - Weight 76.6 kg (168 lb 12.8 oz) 12/18/2023 9:49 AM EDT Height 147.3 cm (4' 10") 12/18/2023 9:49 AM EDT Body Mass Index 35.28 12/18/2023 9:49 AM EDT documented in this encounter Patient Instructions * Patient Instructions* Edilma Brown CRNP - 12/18/2023 10:19 AM EDT Oral appliance for sleep apnea - talk with your dentist regarding whether they make these. If not, we have a list of providers in [place]. Not a candidate for implantable INSPIRE device given your sleep apnea is mild (but severe in REM sleep). Start removing the humidifier tank daily and letting it air dry apart from the main unit. documented in this encounter Progress Notes * Edilma Brown CRNP - 12/18/2023 10:05 AM EDT [facility] Missy Weems is a 78 year old female seen today for yearly follow-up of mild LUIS, severe in REM. Sleep Testing: -PSG 12/19/2011 (BMI 43.2): AHI 7.1, REM AHI 28, SpO2 angelika 80% with 23 mins <91%, PLMI 3 -PSG 09/04/2014 (BMI 43): AHI 5.9, RDI 8, REM AHI 28, SpO2 angelika 63% (appeared to be artifact) with 2.8 mins <89%, PLMI 18 -Presented in Jan 2022 with loud snoring, morning fatigue, some daytime sleepiness with napping. [place] 6. -PSG 06/14/2022 (BMI 41.6): AHI 8.9, REM AHI 45, PLMI 47, SpO2 angelika 76% with 17 minutes < 89% -Noct ox aPAP 7-16/RA 01/23/2023 (wt 183): SpO2 angelika 84% with 3:06 minutes <89%, test duration 9:28 hrs Interim History: CPAP used most nights, with the exception of when she stays over at her grand kids'. Does well withCPAP at the start of the night but after she wakes up and uses the restroom she gets anxious with PAP on. It's hard for her to describe what exactly it is about treatment but she ends up removing themask and returning back to sleep. No daytime napping or dozing, which was noted over the winter. Enjoys spending time outside. Started on Ozempic, weight down from 209 to 168 lb. Interesting in Inspire. Compliance Data: Report date: last 30 days ending 11/26/2023 % total days used: 80 % days used > 4 hours: 33 Average hours per day used: 3 hours 41 mins Large leak: 16 L/min rAHI: 0.7 P95% 10.5 cm H2O Equipment: DME Provider: Andrea Device: [id number] Settings: 7-16 cmH20 Interface Type: MINE FOREMAN Humidifier: yes Cleaning: By hand routinely [place] Sleepiness Scale Question 12/18/2023 9:53 AM EDT - Filed by Kimber Polk LPN What is the chance you will doze off in the following situation? Sitting and reading No chance of dozing Watching TV Slight chance of dozing Sitting inactive in a public place, such as a theater or meeting No chance of dozing As a passenger in a car for an hour without a break No chance of dozing Lying down to rest in the afternoon when circumstances permit High chance of dozing When sitting and talking to someone No chance of dozing When sitting quietly after lunch without alcohol No chance of dozing In a car, while stopped for a few minutes in traffic No chance of dozing Score (range: 0 - 24) 4 Problem List: Patient Active Problem List Diagnosis Lumbar spinal stenosis LUIS (obstructive sleep apnea) SIMS (nonalcoholic steatohepatitis) DIAN (generalized anxiety disorder) Dyslipidemia BPPV (benign paroxysmal positional vertigo) Primary osteoarthritis of both knees Gastroesophageal reflux disease with esophagitis Presence of IVC filter Methylenetetrahydrofolate reductase (MTHFR) deficiency ([facility]) Seasonal allergic rhinitis due to pollen Major depressive disorder with single episode, in full remission ([facility]) 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 DULoxetine HCl 60 MG Oral Capsule Delayed Release Particles (Cymbalta) TAKE ONE CAPSULE BY MOUTH EVERY DAY DO NOT CRUSH, CUT OR CHEW 90 Capsule 1 Omeprazole 40 MG Oral Capsule Delayed Release (PriLOSEC) Take 1 Capsule by mouth in the morning. 90Capsule 2 Ozempic (2 MG/DOSE) 8 MG/3ML Subcutaneous Solution Pen-injector (Semaglutide (2 MG/DOSE)) Inject 2 mg under the skin once a week. 3 mL 2 Tamsulosin HCl 0.4 MG Oral Capsule (Flomax) TAKE ONE CAPSULE BY MOUTH EVERY MORNING 90 Capsule 3 Latanoprost 0.005 % Ophthalmic Solution (Xalatan) Instill 1 Drop into both eyes at bedtime. 10 mL 3 Nystatin-Triamcinolone 953039-4.1 UNIT/GM-% External Cream (Mycolog) Apply to affected area two times per day for 1 week 15 g 2 NATURAL SUPPLEMENT Take 1 Capsule by mouth daily as needed. Medical Marijuana Capsules Diclofenac Sodium 1 % External Gel (Voltaren) Apply a small amount to the affected area daily as needed Levocetirizine Dihydrochloride 5 MG Oral Tablet (Xyzal Allergy 24HR) Take 1 Tablet by mouth at bedtime. Vitamin C 500 MG Oral Tablet (Ascorbic Acid) Take 1 Tablet by mouth in the morning. Vitamin D3 125 MCG (5000 UT) Oral Capsule (Cholecalciferol) Take 1 Capsule by mouth in the morning. Zinc 50 MG Oral Tablet Take 1 Tablet by mouth in the morning. Lisinopril 2.5 MG Oral Tablet (Prinivil) Take 1 Tablet by mouth in the morning. 100 Tablet 2 Metoprolol Succinate ER 25 MG Oral Tablet Extended Release 24 Hour (toPROL XL) Take 1 Tablet by mouth in the morning. 100 Tablet 3 Rosuvastatin Calcium 5 MG Oral Tablet (Crestor) Take 1 Tablet by mouth in the morning. 100 Tablet 3 Albuterol Sulfate HFA 108 (90 Base) MCG/ACT Inhalation Aerosol Solution inhale 2 puffs by mouth every 6 hours as needed for shortness of breath or wheezing 54 g 1 Anoro Ellipta 62.5-25 MCG/ACT Inhalation Aerosol Powder Breath Activated (umeclidinium-vilanterol) inhale 1 puff by mouth daily 180 Each 1 Folic Acid 1 MG Oral Tablet TAKE ONE TABLET BY MOUTH EVERY DAY 90 Tablet 3 Sulfamethoxazole-Trimethoprim 400-80 MG Oral Tablet (Bactrim) Take 1 Tablet by mouth at bedtime. 90Tablet 3 Apixaban 5 MG Oral Tablet (Eliquis) TAKE ONE TABLET BY MOUTH EVERY MORNING AND TAKE ONE TABLET BY MOUTH AT BEDTIME 200 Tablet 3 Gabapentin 400 MG Oral Capsule (Neurontin) Take 1 Capsule by mouth in the morning and 1 Capsule at noon and 1 Capsule before bedtime. 270 Capsule 3 Estradiol 0.1 MG/GM Vaginal Cream (Estrace) Apply 1/2 g topically to affected area in the morning. 42.5 g 6 Alendronate Sodium 70 MG Oral Tablet (Fosamax) TAKE ONE TABLET BY MOUTH ONCE A WEEK WITH 8 OZ OF WATER 30 MINUTES BEFORE FIRST MEAL OF THE DAY. REMAIN UPRIGHT FOR 30 MINUTES AFTER TAKING TABLET 15 Tablet 3 Diclofenac Sodium 75 MG Oral Tablet Delayed Release (Voltaren) Take 1 Tablet by mouth 2 times a dayas needed. (Patient not taking: Reported on 12/18/2023) No current facility-administered medications for this visit. Physical Exam: BP 152/82 | Pulse 67 | Temp 37.3 C (99.1 F) (Tympanic) | Resp 20 | Ht 1.473 m (4' 10") | Wt 76.6 kg (168 lb 12.8 oz) | LMP (LMP Unknown) | SpO2 92% Comment: ra, rest | BMI 35.28 kg/m | BSA 1.77m Constitutional: Alert, oriented and in no acute distress Skin: No abnormal mask markings on face Cardio: Regular rate and rhythm, no murmur Chest: Normal respiratory effort at rest Neuro: Fluent speech Psych: Appropriate mood and affect. Assessment & Plan: Mild obstructive sleep apnea based on AHI criteria that is severe in REM sleep Poor tolerance with PAP after waking and using the restroom at night Not a candidate for Inspire Discussed oral appliance therapy, inquire with dentistry Actively losing weight which may help resolve LUIS Consider reassessing with PSG once at weight loss plateau She's agreeable to continuing to work towards more PAP usage Ramp changed from 4 cm H2O over 20 minutes to 5 cm H2O over 15 minutes to see if helpful Follow-up in 6 months. ERIN [facility] I spent a total of 30-39 minutes (exact time 35 mins) on the date of service in preparation, delivery, and documentation of the care provided to Missy Weems excluding any time spent in the performance of separately billed services. documented in this encounter Nursing Notes * Kimber Polk LPN - 12/18/2023 9:44 AM EDT Pt for f/u LUIS [facility]AP[facility] [place] Sleepiness Scale Question 12/18/2023 9:53 AM EDT - Filed by Kimber Polk LPN What is the chance you will doze off in the following situation? Sitting and reading No chance of dozing Watching TV Slight chance of dozing Sitting inactive in a public place, such as a theater or meeting No chance of dozing As a passenger in a car for an hour without a break No chance of dozing Lying down to rest in the afternoon when circumstances permit High chance of dozing When sitting and talking to someone No chance of dozing When sitting quietly after lunch without alcohol No chance of dozing In a car, while stopped for a few minutes in traffic No chance of dozing Score (range: 0 - 24) 4 documented in this encounter Plan of Treatment Upcoming Encounters Date Type Department Care Team (Late st Contact Info) Description 12/18/2023 1:40 PM EDT Office Visit Family Practice [place] [address] [place] [address] Jcarlos Laureano PA-C [address] [place] [address] 01/02/2024 3:15 PM EDT Office Visit Urology, [facility] 132 [place] [address] Salvador Mireles MD 27 [facility] [address] [place] [address] 02/05/2024 8:40 AM EDT Office Visit Dermatology [facility], [place] [address] [place] [address] Amy Mckeon PA-C [address] [place] [address] 05/14/2024 1:00 PM EST Office Visit Allergy/Immunology [facility] [address] [place] [address] Michael Vieira MD [address] [place] [address] 06/20/2024 12:00 PM EST Office Visit Sleep Disorders Ctr [facility] 132 [facility] [place] [phone] Edilma Brown CRNP 132 [place] [address] 09/18/2024 2:30 PM EDT Nurse Only Ancillary [facility], [place] 8 [place] [address] [place], Nurse Annual Wellness [facility] 8 [place] [address] Health Maintenance Due Date Last Done Comments [...] D LEVEL ONCE IN A LIFETIME-USE SMARTSET# [id number] Completed 04/30/2023, 12/21/2021, 09/13/2020, Additional history exists [...] as of this encounter Visit Diagnoses Diagnosis Obstructive sleep apnea- Primary Obstructive sleep apnea (adult) (pediatric) documented in this encounter Care Teams Curing Room Supervisor Relationship Specialty Start Date End Date Jcarlos Laureano PA-C [address] [facility] [place] [id number] PCP - General Physician Firer Diesel Locomotive 07/10/23 documented as of this encounter
--- OUTSIDE RECORDS SUMMARY | 2024-03-06 04:10 | External Medical Summary | Summary of Care ---
Author Name Unknown Organization [facility] Address [address] [facility] [place] [address] Phone [phone] Care Team Providers Care Branch Assistant Name Role Phone Jcarlos Laureano PA-C Primary Care Provide r Reason for Visit * Reason Onset Date Comments Discontinue Medication 11/21/2023 nystatin- triamcinolone (MYCOLOG) 593959-2.1 UNIT/GM-% cream Encounter Details Date Type Department Care Team (Late st Contact Info) Description 11/[facility] [address] [facility] [place] [address] Jcarlos Laureano PA-C [address] [facility] [place] [id number] Discontinue Medication (nystatin-triamcino... Allergies Active Allergy Reactions Criticality Noted Date [...] as of this encounter (statuses as of 11/22/2023) Medications Medication Sig Dispensed Refills Start Date End Date Status Tamsulosin HCl 0.4 MG Oral Capsule (Flomax) TAKE ONE CAPSULE BY MOUTH EVERY MORNING 90 Capsule 3 12/18/2022 4 Active Alendronate Sodium 70 MG Oral Tablet [...] CHEW 90 Capsule 3 11/24/2022 4 Active Latanoprost 0.005 % Ophthalmic Solution (Xalatan) INSTILL ONE DROP INTO EACH EYE AT BEDTIME 10 mL 3 11/23/2022 4 Active Clobetasol Propionate 0.05 % External Cream (Temovate)Indications :Chronic vulvitis USE A PEA SIZE AMOUNT ON THE AFFECTED AREA ONCE WEEKLY, OR USE NEEDED TWICE DAILY, FOR NO MORE THAN TWO WEEKS 60 g 2 11/22/2022 4 Active Estradiol 0.1 MG/GM Vaginal Cream [...] the morning. 90 Capsule 1 06/28/2023 Active Ozempic (2 MG/DOSE) 8 MG/3ML Subcutaneous Solution Pen-injector (Semaglutide (2 MG/DOSE))Indications: Class 2 severe obesity due to excess calories with serious comorbidity and body mass index (BMI) of 36.0 to 36.9 in adult (HCC) Inject 2 mg under the skin once a week. 3 mL 2 08/21/2023 Active Folic Acid 1 MG Oral TabletIndications:MTH [...] needed. Medical Marijuana Capsules Active Nystatin-Triamcinolon e 794319-0.1 UNIT/GM-% External Cream ([employer]Works)Indications: Yeast infection Apply to affected area two times per day for 1 week 15 g 2 11/22/2023 Active documented as of this encounter (statuses as of 11/22/2023) Active Problems Problem Noted Date Diagnosed Date Impingement syndrome of left shoulder 09/05/2022 Sacroiliitis, not elsewhere classified Pure hypercholesterolemia 06/29/2022 Primary open-angle glaucoma, bilateral, mild sta ge 05/04/2022 Morbid obesity 05/04/2022 Monoallelic mutation of KCNQ1 gene 12/15/2021 Overview: likely pathogenic KCNQ1 gene variant (c.1081 C>T, p.(Q361*)) detected via [employer]. Increased risk for Inherited Arrhythmias. Please click [...] as of this encounter (statuses as of 11/22/2023) Resolved Problems Problem Noted Date Diagnosed Date [...] 03/13/2018 Overview: 02/14/18 While on vaction in [place] Facial laceration 02/21/2018 06/27/2021 Overview: 02/14/18 While on vaction in [place] Closed fracture of nasal bones 02/21/2018 06/27/2021 Overview: 02/14/18 While on vaction in [place] Fall on or from sidewalk curb 02/21/2018 03/13/2018 Overview: 02/14/18 While on vaction in [place] History of nonmelanoma skin cancer 06/12/2017 12/20/2017 Overview: BCC nasal bridge 12/02 Trochanteric bursitis of right hip 05/16/2017 12/20/2017 Hx of non anemic vitamin B12 deficiency 04/02/2017 12/20/2017 History of laminectomy 07/26/201612/20 HTN, goal below 150/90 12/24/201508/21 Bronchospasm, exercise-induced 10/07/2012 06/02/2016 Genetic Sleep Disorder Resea [facility] Other*[id number] 10/19/2011 01/20/2016 Other pulmonary embolism and infarction [...] as of this encounter (statuses as of 11/22/2023) Immunizations Name Administration Dates Next Due COVID-19 [...] Miscellaneous Notes * Telephone Encounter - Jcarlos Laureano PA-C - 11/22/2023 5:59 PM EDT Medications sent. * Telephone Encounter - Mel Chicas LPN - 11/21/2023 4:00 PM EDT Pending for review Pending Prescriptions: Disp Refills Nystatin-Triamcinolone 506809-7.1 UNIT/GM*15 g 2 Sig: Apply to affected area two times per day for 1 week Last Visit: 08/21/2023 (in office), Visit date not found (telemedicine) Next Visit: 12/18/2023 Last date the medication was ordered: 02/06/17 Patient Active Problem List Diagnosis Lumbar spinal stenosis LUIS (obstructive sleep apnea) SIMS (nonalcoholic steatohepatitis) DIAN (generalized anxiety disorder) Dyslipidemia BPPV (benign paroxysmal positional vertigo) Primary osteoarthritis of both knees Gastroesophageal reflux disease with esophagitis Presence of IVC filter Methylenetetrahydrofolate reductase (MTHFR) deficiency (HCC) Seasonal allergic rhinitis due to pollen Major depressive disorder with single episode, in full remission ([facility]) 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 Recurrent UTI High risk for fracture due to osteoporosis by DEXA scan Vaginal atrophy Medical marijuana use Stress incontinence of urine Monoallelic mutation of KCNQ1 gene Primary open-angle glaucoma, bilateral, mild stage Morbid obesity (HCC) Sacroiliitis, not elsewhere classified ([facility]) Pure hypercholesterolemia Impingement syndrome of left shoulder Labs: Lab Results Component Value Date/Time CREATININE - [facility] 0.7 04/30/2023 02:43 PM CREATININE - [facility] 0.8 03/09/2020 08:28 AM CREATININE, RANDOM URINE - [facility] 80 09/27/2022 02:55 PM CREATININE-OUTSIDE LAB 0.82 07/27/2015 12:00 AM Lab Results Component Value Date/Time POTASSIUM - [facility] 4.6 04/30/2023 02:43 PM POTASSIUM - [facility] 4.2 03/09/2020 08:28 AM [...] Component Value Date/Time HEMOGLOBIN A1C - [facility] 5.2 04/30/2023 02:43 PM HEMOGLOBIN A1C - [facility] 5.8 (H) 09/27/2022 02:55 PM HEMOGLOBIN A1C - [facility] 5.9 (H) 06/29/2022 03:07 PM HEMOGLOBIN A1C - [facility] 5.4 04/19/2016 10:20 AM HEMOGLOBIN A1C - [facility] 5.9 08/09/2015 09:13 AM HEMOGLOBIN A1C - [facility] 6.0 04/23/2015 12:29 PM * Telephone Encounter - Divina Santos CPhT - 11/21/2023 12:32 PM EDT Patient requesting refills for nystatin-triamcinolone (MYCOLOG) 347106-3.1 UNIT/GM-% cream . Upon chart review, medication is listed as discontinued, with discontinuation reason as "Medication List Clean Up". Please advise if you wish to continue this therapy for the patient. Thank you, Divina Santos Vegetable Farm Manager [employer] 11/21/2023, 12:32 PM documented in this encounter Plan of Treatment Upcoming Encounters Date Type Department Care Team (Late st Contact Info) Description 11/30/2023 7:00 AM EDT Office Visit Sleep Disorders Ctr [facility] [place] [address] [phone] Edilma Brown CRNP [address] [place] [address] 12/18/2023 1:40 PM EDT [facility] [address] [facility] [place] [address] Jcarlos Laureano PA-C [address] [facility] [place] [address] 12/21/2023 10:00 AM EDT Office Visit Allergy/Immunology [facility] [address] [place] [address] Michael Vieira MD [address] [place] [address] 01/02/2024 3:15 PM EDT Office Visit Urology, [place] [facility] [place] [address] [place] [address] Salvador Mireles MD [address] [place] [address] [place] [address] 09/18/2024 2:30 PM EDT Nurse Only Ancillary [facility] [address] [place] [address] [place], Nurse Annual Wellness Cold [address] [place] [address] Health Maintenance Due Date Last Done Comments Zoster Vaccines (2 of 3) 11/17/2013 09/22/2013 COVID-19 Vaccine ( - 2022- season) 2023 05/10/2021, 08/25/2020, 07/28/2020 DXA Scan 12/06/2024 12/06/2022, 11/23, 07/13/2020, Additional history exists DTaP,Tdap,and Td Vaccines (3 - Td or Tdap) 12/23/2025 12/24/2015, 05/08/2006 Hepatitis C Screening Completed 10/07/2010 Pneumococcal Vaccine: 65+ Years Completed 10/15/2015, 04/04/2010 Albumin/Creatinine Ratio Discontinued 09/27/2022, 10/2022 Influenza Vaccine (FLU shot) Completed 02/21/2023, 07/13/2022, 03/14/2021, Additional history exists VITAMIN D LEVEL ONCE IN A LIFETIME-USE SMARTSET# [id number] Completed 04/30/2023, 12/21/2021, 09/13/2020, Additional history exists [...] as of this encounter Visit Diagnoses Diagnosis Yeast infection- Primary Other and unspecified mycoses documented in this encounter Care Teams Branch Assistant Relationship Specialty Start Date End Date Jcarlos Laureano PA-C [address] [facility] [place] [address] PCP - General Physician Tree Thinner 07/10/23 documented as of this encounter
--- OUTSIDE RECORDS SUMMARY | 2024-03-06 04:10 | External Medical Summary | Summary of Care ---
Author Name Unknown Organization [facility] Address [address] [facility] [place] [address] Phone [phone] Care Team Providers Care Case Hardener Name Role Phone Jcarlos Laureano PA-C Primary Care Provide r Reason for Visit * Reason Onset Date Comments Other 10/12/2023 Vaccine question Encounter Details Date Type Department Care Team (Late st Contact Info) Description 10/12/2023 Telephone Family Practice [facility], [place] [address] [facility] [place] [address] Jcarlos Laureano PA-C [address] [facility] [place] [address] Other (Vaccine question ) Allergies Active Allergy Reactions Criticality Noted Date [...] as of this encounter (statuses as of 10/22/2023) Medications Medication Sig Dispensed Refills Start Date [...] 1 Tablet by mouth in the morning. 0 Active Vitamin D3 125 MCG (5000 UT) Oral Capsule (Cholecalciferol) Take 1 Capsule by mouth in the morning. 0 Active Vitamin C 500 MG Oral Tablet (Ascorbic Acid) Take 1 Tablet by mouth in the morning. 0 Active Diclofenac Sodium 75 MG Oral Tablet Delayed Release (Voltaren) Take 1 Tablet by mouth 2 times a day as needed. 0 Active Levocetirizine Dihydrochloride 5 MG Oral Tablet (Xyzal Allergy 24HR) Take 1 Tablet by mouth at bedtime. 0 Active Diclofenac Sodium 1 % External Gel (Voltaren) Apply a small amount to the affected area daily as needed 0 Active NATURAL SUPPLEMENT Take 1 Capsule by mouth daily as needed. Medical Marijuana Capsules 0 Active documented as of this encounter (statuses as of 10/22/2023) Active Problems Problem Noted Date Diagnosed Date Impingement syndrome of left shoulder 09/05/2022 Sacroiliitis, not elsewhere classified 3 Pure hypercholesterolemia 06/29/2022 Primary open-angle glaucoma, bilateral, mild sta ge 05/04/2022 Morbid obesity 05/04/2022 Monoallelic mutation of KCNQ1 gene 12/15/2021 Overview: likely pathogenic KCNQ1 gene variant (c.1081 C>T, p.(Q361*)) detected via [employer]. Increased risk for Inherited Arrhythmias. Please click [...] as of this encounter (statuses as of 10/22/2023) Resolved Problems Problem Noted Date Diagnosed Date [...] exercise-induced 10/07/2012 06/02/2016 Genetic Sleep Disorder Resea [facility] Other*[id number] 10/19/2011 01/20/2016 Other pulmonary embolism and infarction [...] as of this encounter (statuses as of 10/22/2023) Immunizations Name Administration Dates Next Due COVID-19 [...] encounter Miscellaneous Notes * Telephone Encounter - Radha Anthony LPN - 10/22/2023 1:57 PM EDT Called [facility], they do not need an order. Called pt, left detailed message that pt could stop by and get at her convenience. Instructed pt to call with any questions. * Telephone Encounter - Sorin Schmitz MD - 10/19/2023 12:04 PM EDT Helping Jcarlos out-- she can get this. Can you please arrange? Thanks. * Telephone Encounter - Mohini Momin CPhT - 10/12/2023 2:53 PM EDT Pt calling in asking if PCP is okay with pt getting the RSV vaccine. It was recommended by her pulmonary MD. They informed her that her PCP would have to order it for her. Please let pt know if MD is okay with getting and send order to [phone] Thank you, Mohini Momin CPhT II Transportation Dispatcher [facility] (Formerly [facility]) 10/12/2023, 2:55 PM documented in this encounter Plan of Treatment Upcoming Encounters Date Type Department Care Team (Late st Contact Info) Description 11/30/2023 7:00 AM EDT Office Visit Sleep Disorders Ctr [facility] [address] [facility] [place] [phone] Edilma Brown CRNP [address] [facility] [place] [address] 12/18/2023 1:40 PM EDT Office Visit Family Practice [address] [address] [address] [place] [address] Jcarlos Laureano PA-C [address] [place] [address] 12/21/2023 10:00 AM EDT Office Visit Allergy/Immunology [facility] [address] [place] [address] Michael Vieira MD [address] [facility] [place] [address] 12/24/2023 2:10 PM EDT Office Visit Dermatology [place] [address] [place] [address] Amy Mckeon PA-C [address] [facility] [place] [address] 01/02/2024 3:15 PM EDT Office Visit Urology, [facility] [address] [place] [address] Salvador Mireles MD [address] [facility] [address] [place] [address] 09/18/2024 2:30 PM EDT Nurse Only Ancillary [address], [place] [address] [place] [address] [place], Nurse Annual Wellness Cold [address] [place] [address] Health Maintenance Due Date Last Done Comments Zoster Vaccines (2 of 3) 11/17/2013 09/22/2013 COVID-19 Vaccine ( season) 2023 05/10/2021, 08/25/2020, 07/28/2020 DXA Scan 12/06/2024 12/06/2022, 11/23, 07/13/2020, Additional history exists DTaP,Tdap,and Td Vaccines (3 - Td or Tdap) 12/23/2025 12/24/2015, 05/08/2006 Hepatitis C Screening Completed 10/07/2010 Pneumococcal Vaccine: 65+ Years Completed 10/15/2015, 04/04/2010 Albumin/Creatinine Ratio Discontinued 09/27/2022, 10/2022 Influenza Vaccine (FLU shot) Completed 02/21/2023, 07/13/2022, 03/14/2021, Additional history exists VITAMIN D LEVEL ONCE IN A LIFETIME-USE SMARTSET# [id number] Completed 04/30/2023, 12/21/2021, 09/13/2020, Additional history exists [...] filedocumented as of this encounter Care Teams Case Hardener Relationship Specialty Start Date End Date Jcarlos Laureano PA-C [address] [facility] [place] [address] PCP - General Physician Program Mgr 07/10/23 documented as of this encounter
--- OUTSIDE RECORDS SUMMARY | 2024-03-06 04:10 | External Medical Summary | Summary of Care ---
Author Name Unknown Organization [facility] Address [address] [facility] [place] [address] Phone [phone] Care Team Providers Care Sales Solutions Associate Name Role Phone Jcarlos Laureano PA-C Primary Care Provide r Encounter Details Date Type Department Care Team (Late st Contact Info) Description 11/13/2023 Population Health External Data Unspecified Department Allergies [...] as of this encounter (statuses as of 11/14/2023) Medications Medication Sig Dispensed Refills Start Date End Date Status Tamsulosin HCl 0.4 MG Oral Capsule (Flomax) TAKE ONE CAPSULE BY MOUTH EVERY MORNING 90 Capsule 3 12/18/2022 Active Alendronate Sodium 70 MG Oral Tablet [...] daily as needed. 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 Increased risk for Inherited Arrhythmias. Please click [...] as of this encounter (statuses as of 11/14/2023) Resolved Problems Problem Noted Date Diagnosed Date [...] exercise-induced 10/07/2012 06/02/2016 Genetic Sleep Disorder Resea [facility] Other*[id number] 10/19/2011 01/20/2016 Other pulmonary embolism and infarction [...] as of this encounter (statuses as of 11/14/2023) Immunizations Name Administration Dates Next Due COVID-19 [...] AM EDT [facility] [place] [phone] Edilma Brown CRNP [address] [place] [address] 12/18/2023 1:40 PM EDT Office Visit Family Practice [address], [place] [address] [place] [address] Jcarlos Laureano PA-C [address] [place] [address] 12/21/2023 10:00 AM EDT Office Visit Allergy/Immunology [facility] [address] [facility] [place] [address] Michael Vieira MD [address] [facility] [place] [address] 12/24/2023 2:10 PM EDT Office Visit Dermatology [address], [place] [address] [place] [address] Amy Mckeon PA-C [address] [place] [address] 01/02/2024 3:15 PM EDT Office Visit Urology, [facility] 132 [place] [address] Salvador Mireles MD [address] [address] [place] [address] 09/18/2024 2:30 PM EDT Nurse Only Ancillary [address], [place] [address] [place] [address] [place], Nurse Annual Wellness Cold [address] [place] [address] Health Maintenance Due Date Last Done Comments Zoster Vaccines (2 of 3) 11/17/2013 09/22/2013 COVID-19 Vaccine ( - season) 2023 05/10/2021, 08/25/2020, 07/28/2020 DXA Scan 12/06/2024 12/06/2022, 11/23, 07/13/2020, Additional history exists DTaP,Tdap,and Td Vaccines (3 - Td or Tdap) 12/23/2025 12/24/2015, 05/08/2006 Hepatitis C Screening Completed 10/07/2010 Pneumococcal Vaccine: 65+ Years Completed 10/15/2015, 04/04/2010 Albumin/Creatinine Ratio Discontinued 09/27/2022, 10/2022 Influenza Vaccine (FLU shot) Completed 02/21/2023, 07/13/2022, 03/14/2021, Additional history exists VITAMIN D LEVEL ONCE IN A LIFETIME-USE SMARTSET# [id number] Completed 04/30/2023, 12/21/2021, 09/13/2020, Additional history exists [...] filedocumented as of this encounter Care Teams Sales Solutions Associate Relationship Specialty Start Date End Date Jcarlos Laureano PA-C [address] [facility] [place] [address] PCP - General Physician Bung Sewer 07/10/23 documented as of this encounter
--- OUTSIDE RECORDS SUMMARY | 2024-03-06 04:10 | External Medical Summary | Summary of Care ---
Author Name Unknown Organization [facility] Address [address] [facility] [place] [place] [address] Phone [phone] Care Team Providers Care Ends Down Checker Name Role Phone Jcarlos Laureano PA-C Primary Care Provide r Reason for Visit * Reason Onset Date Comments Forms Request 11/28/2023 Encounter Details Date Type Department Care Team (Late st Contact Info) Description 11/28/2023 Telephone Allergy/Immunology [facility] 200 [facility] [place] [address] Michael Vieira MD 200 [place] [address] Forms Request Allergies Active Allergy Reactions Criticality Noted Date [...] as of this encounter (statuses as of 11/28/2023) Medications Medication Sig Dispensed Refills Start Date [...] needed. Medical Marijuana Capsules Active Nystatin-Triamcinolon e 894774-9.1 UNIT/GM-% External Cream (Mycolog)Indications: Yeast infection Apply to affected area two times per day for 1 week 15 g 2 11/22/2023 Active Latanoprost 0.005 % Ophthalmic Solution (Xalatan) Instill 1 Drop into both eyes at bedtime. 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 Increased risk for Inherited Arrhythmias. Please click [...] as of this encounter (statuses as of 11/28/2023) Resolved Problems Problem Noted Date Diagnosed Date [...] Overview: 02/14/18 While on vaction in [place] Facial laceration 02/21/2018 06/27/2021 Overview: 02/14/18 While on vaction in [place] Closed fracture of nasal bones 02/21/2018 06/27/2021 Overview: 02/14/18 While on vaction in [place] Fall on or from sidewalk curb 02/21/2018 03/13/2018 Overview: 02/14/18 While on vaction in [place] History of nonmelanoma skin cancer 06/12/2017 12/20/2017 Overview: BCC nasal bridge 12/02 Trochanteric bursitis of right hip 05/16/2017 12/20/2017 Hx of non anemic vitamin B12 deficiency 04/02/2017 12/20/2017 History of laminectomy 07/26/201612/20 HTN, goal below 150/90 12/24/201508/21 Bronchospasm, exercise-induced 10/07/2012 06/02/2016 Genetic Sleep Disorder Resea [facility] Other*[id number] 10/19/2011 01/20/2016 Other pulmonary embolism and infarction [...] as of this encounter (statuses as of 11/28/2023) Immunizations Name Administration Dates Next Due COVID-19 [...] encounter Miscellaneous Notes * Telephone Encounter - Megan John LPN - 11/28/2023 1:46 PM EDT Paperwork received. * Telephone Encounter - Samantha Quiroz OSA - 11/28/2023 10:25 AM EDT Pt mailed out paperwork for new allergy . No need to contact pt. Paperwork will be placed in allergy mailbox in email production specialist. Thank you documented in this encounter Plan of Treatment Upcoming Encounters Date Type Department Care Team (Late st Contact Info) Description 11/30/2023 7:00 AM EDT Office Visit Sleep Disorders Ctr [facility], [place] [address] [place] [phone] Edilma Brown CRNP [address] [place] [address] 12/18/2023 1:40 PM EDT Office Visit Family Practice [address] [place] [address] [place] [address] Jcarlos Laureano PA-C [address] [facility] [place] [address] 12/21/2023 10:00 AM EDT Office Visit Allergy/Immunology [facility] V[facility] [place] [address] [place] [address] Michael Vieira MD [address] [place] [address] 01/02/2024 3:15 PM EDT [facility] [place] [address] [place] [address] Salvador Mireles MD [address] [place] [address] [place] [address] 02/05/2024 8:40 AM EDT Office Visit Dermatology [address], [place] [address] [place] [address] Amy Mckeon PA-C [address] [place] [address] 09/18/2024 2:30 PM EDT Nurse Only Ancillary [address] [place], [place] [address] [place] [address] [place], Nurse Annual Wellness Cold [address] [place] [address] Health Maintenance Due Date Last Done Comments Zoster Vaccines (2 of 3) 11/17/2013 09/22/2013 COVID-19 Vaccine (4 - 2022- season) 2023 05/10/2021, 08/25/2020, 07/28/2020 DXA Scan 12/06/2024 12/06/2022, 11/23, 07/13/2020, Additional history exists DTaP,Tdap,and Td Vaccines (3 - Td or Tdap) 12/23/2025 12/24/2015, 05/08/2006 Hepatitis C Screening Completed 10/07/2010 Pneumococcal Vaccine: 65+ Years Completed 10/15/2015, 04/04/2010 Albumin/Creatinine Ratio Discontinued 09/27/2022, 10/2022 Influenza Vaccine (FLU shot) Completed 02/21/2023, 07/13/2022, 03/14/2021, Additional history exists VITAMIN D LEVEL ONCE IN A LIFETIME-USE SMARTSET# [id number] Completed 04/30/2023, 12/21/2021, 09/13/2020, Additional history exists [...] filedocumented as of this encounter Care Teams Ends Down Checker Relationship Specialty Start Date End Date Jcarlos Laureano PA-C [address] [facility] [place] [address] PCP - General Physician Professional Engineer 07/10/23 documented as of this encounter
--- OUTSIDE RECORDS SUMMARY | 2024-03-06 04:10 | External Medical Summary | Summary of Care ---
Author Name Unknown Organization [facility] Address [address] [place] [address] Phone [phone] Care Team Providers Care Chemical Processing Equipment Repairer Name Role Phone Jcarlos Laureano PA-C Primary Care Provide r Encounter Details Date Type Department Care Team (Latest Contact Info) Description 10/10/2023 Medication Management Jeerindesmond Zheng [facility] [address] [place] [address] Corine Ochoa, [facility] [address], [place] [id number] Referred for management of medication therapy* Allergies Active Allergy Reactions Criticality Noted Date [...] as of this encounter (statuses as of 10/11/2023) Medications Medication Sig Dispensed Refills Start Date [...] Active Clobetasol Propionate 0.05 % External Cream (Temovate)Indication s:Chronic vulvitis USE A PEA SIZE AMOUNT ON [...] 08/21/2023 Active Folic Acid 1 MG Oral TabletIndications:MT [...] as needed. Medical Marijuana Capsules 0 Active nystatin-triamcinolo ne (MYCOLOG) 161248-7.1 UNIT/GM-% cream Apply to affected area two times per day for 1 week 15 g 2 02/06/2017 4 Discontinu ed(Medicat ion List Clean Up) betamethasone valerate (VALISONE) 0.1 % OINT Apply topically to affected area 2 times a day. Apply to affected area twice daily as needed 15 g 1 01/28/2018 4 Discontinu ed(Medicat ion List Clean Up) Nystatin 165325 UNIT/GM External Powder (Nystop)Indications: SIMS (nonalcoholic steatohepatitis) APPLY TO AFFECTED AREA(S) THREE TIMES A DAY 180 g 0 12/05/2021 4 Discontinu ed(Medicat ion List Clean Up) Ipratropium-Albutero l 0.5-2.5 (3) MG/3ML Inhalation Solution (Duoneb) Inhale 3 mL by mouth every 8 hours as needed. 0 04/24/2022 4 Discontinu ed(Medicat ion List Clean Up) Clotrimazole-Betamet hasone 1-0.05 % External Cream Apply topically to affected area 2 times a day. 0 4 Discontinu ed(Medicat ion List Clean Up) Docusate Sodium 100 MG Oral Capsule (Colace) Take 1 Capsule by mouth daily as needed. 0 4 Discontinu ed(Medicat ion List Clean Up) Delsym Cough/Chest Congest DM 5-100 MG/5ML Oral Liquid (Dextromethorphan-gu aiFENesin) Take by mouth. 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 Increased risk for Inherited Arrhythmias. Please click [...] Dyslipidemia 12/24/2015 BPPV (benign paroxysmal positional vertigo) 07/0 06/2015 DIAN (generalized anxiety disorder) 05/08/2014 SIMS (nonalcoholic steatohepatitis) 09/22/2013 LUIS (obstructive sleep apnea) 01/12/2012 Overview: 09/04/14 PSG -- AHI 5.9, RDI 8.1, no desats, 11% TST snoring 12/22/11 PSG - AHI 7.1, very mild nocturnal desats, mild snoring Lumbar spinal stenosis Overview: L 5 documented as of this encounter (statuses as of 10/11/2023) Resolved Problems Problem Noted Date Diagnosed Date [...] Disorder Resea [facility] Other*[id number] 10/19/2011 01/20/2016 Other pulmonary embolism and infarction [...] as of this encounter (statuses as of 10/11/2023) Immunizations Name Administration Dates Next Due COVID-19 [...] as of this encounter Progress Notes * Corine Ochoa, [facility] - 10/11/2023 10:43 AM EDT Missy Weems is a 78 year old female. Objective: Review of patient's allergies indicates: Allergen Reactions Compazine Neuro complications (Please comment) and Other (Please comment) Naproxen Sodium Other Reaction(s): SOB, HIVES WITH ALEVE Adhesive Tape Blister Latex Other Reaction(s): blisters Levofloxacin Other Reaction(s): Unknown Lovenox [Enoxaparin Sodium] Yeast infection Macrobid [Nitrofurantoin] Nausea/vomiting Morphine Itching Penicillins Other Reaction(s): occured as a child, severe itching Ibuprofen Other Reaction(s): HIVES Current Outpatient Medications - WARNING: List may be incomplete due to filtering Medication Sig Dispense Refill NATURAL SUPPLEMENT Take 1 Capsule by mouth daily as needed. Medical Marijuana Capsules Diclofenac Sodium 1 % External Gel (Voltaren) Apply a small amount to the affected area daily as needed Diclofenac Sodium 75 MG Oral Tablet Delayed Release (Voltaren) Take 1 Tablet by mouth 2 times a dayas needed. Levocetirizine Dihydrochloride 5 MG Oral Tablet (Xyzal [...] BY MOUTH EVERY DAY 90 Tablet 3 Ozempic (2 MG/DOSE) 8 MG/3ML Subcutaneous Solution Pen-injector (Semaglutide (2 MG/DOSE)) Inject 2 mg under the skin once a week. 3 mL 2 Omeprazole 40 MG Oral Capsule Delayed Release (PriLOSEC) Take 1 Capsule by mouth in the morning. 90Capsule 1 Sulfamethoxazole-Trimethoprim 400-80 MG Oral Tablet (Bactrim) Take [...] area in the morning. 42.5 g 6 Tamsulosin HCl 0.4 MG Oral Capsule (Flomax) TAKE ONE CAPSULE BY MOUTH EVERY MORNING 90 Capsule 3 Alendronate Sodium 70 MG Oral Tablet (Fosamax) TAKE ONE TABLET BY MOUTH ONCE A WEEK WITH 8 OZ OF WATER 30 MINUTES BEFORE FIRST MEAL OF THE DAY. REMAIN UPRIGHT FOR 30 MINUTES AFTER TAKING TABLET 15 Tablet 3 DULoxetine HCl 60 MG Oral Capsule Delayed Release Particles (Cymbalta) TAKE ONE CAPSULE BY MOUTH EVERY DAY DO NOT CRUSH, CUT OR CHEW 90 Capsule 3 Latanoprost 0.005 % Ophthalmic Solution (Xalatan) INSTILL ONE DROP INTO EACH EYE AT BEDTIME 10 mL 3 Clobetasol Propionate 0.05 % External Cream (Temovate) USE A PEA SIZE AMOUNT ON THE AFFECTED AREA ONCE WEEKLY, OR USE NEEDED TWICE DAILY, FOR NO MORE THAN TWO WEEKS 60 g 2 Immunization History Administered Date(s) Administered COVID-19 mRNA, LNP-s, No Preserve, 2-Dose Series (Moderna) 07/28/2020, 08/25/2020 COVID-19 mRNA, LNP-s, PF, 18+ or 6-11Yrs (Moderna) 05/10/2021 DTP Vaccine 05/08/2006 H1N1 2009 Influenza, IM 06/07/2009 Pneumococcal Conjugate Vacc, 13 Valent (Prevnar) 10/15/2015 Pneumococcal Polysaccharide PPV23 (Pneumovax) 04/04/2010 Season Influenza, Quad, PF, Adjuvanted, 65+ Yrs, IM (FLUAD) 03/04/2020 Seasonal Influenza Virus Vaccine, Unspecified Formulation 03/19/2010, 03/24/2011, 02/28/2012, 03/20/2013, 04/07/2014, 03/21/2016, 04/02/2017, 03/01/2018, 03/13/2018, 03/18/2019, 03/04/2020 Seasonal Influenza, PF, 6 M & above, IM , (FluLaval or Fluzone) 03/13/2018 Seasonal Influenza, Quadrivalent Hd (Fluzone Hd) 03/14/2021, 07/13/2022, 02/21/2023 Seasonal Influenza, Quadrivalent, No Preserve, IM 03/21/2016 Seasonal Influenza, Split, IIV3, With Preserve, Inj 03/19/2010, 03/24/2011, 02/28/2012, 03/20/2013,04/07/2014, 03/06/2015, 03/01/2018 Seasonal Influenza, Trivalent, Adjuvanted, 65+ yrs 03/18/2019 Seasonal Influenza, Trivalent, High Dose, No Preserve, IM 04/02/2017 TDAP (age 10 and older)(Boostrix) 12/24/2015 Varicella Zoster Vaccine (Adult) 09/22/2013 TMR Interventions Incomplete Medication Therapy Recommendations No medication therapy recommendations to display Completed Medication Therapy Recommendations Referred for management of medication therapy Current Medication: Anoro Ellipta 62.5-25 MCG/ACT Inhalation Aerosol Powder Breath Activated (umeclidinium-vilanterol) Rationale: Patient Education Recommendation: Provide Education Note: Currently has more lung damage, doc is waiting a few more months on current regimen and may revisit inc dose/adding new inhaler is damage progresses. Albuterol needed maybe 2-3 times per week omn angy although heat causes her to need it more. Assessment & Plan Indication, effectiveness, safety and convenience of her medications were reviewed today. The patient's medical conditions were assessed, evaluated, and deemed meeting goals of drug therapy, with thefollowing exceptions. Additional Notes: N/A Summary Time Spent: 16-30 min Supervising pharmacist who provided the service: Corine Ochoa, Nancy Takesepideh Information Who was the recipient of the CMR service: beneficiary Language Template for the Patient Takeaway: Mozambican I attest that I have reviewed and updated the patient's conditions, allergies, and medications to the best of my ability. Patient provided medication list gathered by: Mariela Varela [facility] Corine Ochoa fatuma 10/11/2023, 10:43 AM documented in this encounter Miscellaneous Notes * MTM Personal Medication List - Corine Ochoa RPh - 10/11/2023 10:36 AM EDT Medication How I take it Why I use it Prescriber Albuterol Sulfate HFA 108 (90 Base) MCG/ACT Inhalation Aerosol Solution Inhale 2 Puffs by mouth every 6 hours as needed. COPD, Wheezing, Shortness of Breath Jcarlos Laureano PA-C Alendronate Sodium 70 MG Oral Tablet (Fosamax) Take 1 Tablet by mouth once a week at least 30 minutes before food and medications with a full glass of water. Be sure to remain upright for at least 30minutes after taking. Osteoporosis Jcarlos Laureano PA-C Anoro Ellipta 62.5-25 MCG/ACT Inhalation Aerosol Powder Breath Activated (umeclidinium-vilanterol) Inhale 1 Puff by mouth once daily. COPD Jcarlos Laureano PA-C Apixaban 5 MG Oral Tablet (Eliquis) Take 1 Tablet by mouth 2 times a day. Blood Clot Prevention Jcarlos Laureano PA-C Clobetasol Propionate 0.05 % External Cream (Temovate) Apply a pea size amount on affected area topically once weekly, or use twice weekly as needed for no more than 2 weeks. Skin Health Jcarlos Laureano PA-C Diclofenac Sodium 1 % External Gel (Voltaren) Apply a small amount topically to the affected area daily as needed. Pain Self Diclofenac Sodium 75 MG Oral Tablet Delayed Release (Voltaren) Take 1 Tablet by mouth 2 times a dayas needed. Pain Jcarlos Laureano PA-C DULoxetine HCl 60 MG Oral Capsule Delayed Release Particles (Cymbalta) Take 1 Capsule by mouth oncea day. Do not cut, crush or chew. Nerve Pain, Mood Disorder Jcarlos Laureano PA-C Estradiol 0.1 MG/GM Vaginal Cream (Estrace) Apply one-half gram topically to affected area in the morning. Skin Health Jcarlos Laureano PA-C Folic Acid 1 MG Oral Tablet Take 1 Tablet by mouth every day. General Health Jcarlos Laureano PA-C Gabapentin 400 MG Oral Capsule (Neurontin) Take 1 Capsule by mouth 3 times a day. Nerve Pain LIZY Castro Latanoprost 0.005 % Ophthalmic Solution (Xalatan) Instill 1 Drop into each eye at bedtime. GlaucomaAdaallie Rajan MD Levocetirizine Dihydrochloride 5 MG Oral Tablet (Xyzal Allergy 24HR) Take 1 Tablet by mouth at bedtime. Allergies Self Lisinopril 2.5 MG Oral Tablet (Prinivil) Take 1 Tablet by mouth in the morning. High Blood PressureJcarlos Laureano PA-C Metoprolol Succinate ER 25 MG Oral Tablet Extended Release 24 Hour (toPROL XL) Take 1 Tablet by mouth in the morning. High Blood Pressure, Increased Heart Rate Jcarlos Laureano PA-C Medical Marijuana Capsules Take 1 Capsule by mouth daily as needed. Pain Jcarlos Laureano PA-C Omeprazole 40 MG Oral Capsule Delayed Release (PriLOSEC) Take 1 Capsule by mouth in the morning. GERD Jcarlos Laureano PA-C Ozempic (2 MG/DOSE) 8 MG/3ML Subcutaneous Solution Pen-injector (Semaglutide (2 MG/DOSE)) Inject 2 mg under the skin once a week. Diabetes Jcarlos Laureano PA-C Rosuvastatin Calcium 5 MG Oral Tablet (Crestor) Take 1 Tablet by mouth at bedtime. High CholesterolJcarlos Laureano PA-C Sulfamethoxazole-Trimethoprim 400-80 MG Oral Tablet (Bactrim) Take 1 Tablet by mouth at bedtime. Infection Prevention Salvador Mireles MD Tamsulosin HCl 0.4 MG Oral Capsule (Flomax) Take 1 Tablet by mouth every day in the morning. Overactive Bladder Salvador Mireles MD Vitamin C 500 MG Oral Tablet (Ascorbic Acid) Take 1 Tablet by mouth in the morning. General Health Self Vitamin D3 125 MCG (5000 UT) Oral Capsule (Cholecalciferol) Take 1 Capsule by mouth in the morning.General Health Self Zinc 50 MG Oral Tablet Take 1 Tablet by mouth in the morning. General Health Self * [facility] To-Do-List - Corine Ochoa RPh - 10/10/2023 2:37 PM EDT Images from the original note were not included. What we talked about: What I should do: The importance of taking your medication as prescribed Your medicine works best when taken as prescribed. It can be hard to remember to take daily medications. Consider making it a part of your daily routine. Pair taking your medication with something you do every day, like brushing your teeth or eating a meal. Consider setting daily alarms to help remind yourself when it is time to take your medicine. Using a pill box can also help you organize your medicines. Pill boxes allow you to fill each day slot with your daily medicine and help you track when your next dose is due. What we talked about: What I should do: Blood Thinner Safety: Eliquis Blood Thinners help to thin your blood to decrease risk of clots, however it can increase risk of bleeds. These medications may cause you to bruise more easily, to have a longer stop time of bleeding if you cut yourself, to have increase in nose bleeds, as well as to make your gums more likely to bleed when brushing your teeth. Advise your doctor of any signs of bleeding such as blood in urine or stool, bruises that begin to bleed, bruises that do not begin to healafter 2 weeks, bleeding that is not controlled with applied pressure, or a big fall where you hit your head. What we talked about: What I should do: NSAID Safe Use: Diclofenac This medication has a risk to irritate the lining of your stomach and cause ulcers to form, to increase blood pressure, and affect function of your kidneys. These risks increase as the frequency and duration of use increases. They should only be used on an as needed basis. Avoid using with similar medications such as Advil, Aleve, Ibuprofen, or Naproxen. Talk with your doctor before using this medication, especially if you have kidney, heart, or stomach issues/concerns. What we talked about: What I should do: Maintenance versus Rescue Inhaler There are 2 types of inhalers. The first type is the rescue inhaler, which is only used as needed for symptom management of shortness of breath, chest tightness or wheezing. The second type of inhaler is a maintenance inhaler, which is taken daily without regard to symptoms. This medication is to be taken only as prescribed, and it should be taken daily. Taking the maintenance inhaler more than prescribed will provide neither immediate nor added benefit. Taking it as needed will also not help, as it is meant to be taken over time to help strengthen, treat, and prevent worsening of your lung function. Anoro Ellipta is your maintenance inhaler. Albuterol is your rescue inhaler. What we talked about: What I should do: Albuterol Use Check expiration dates with frequency to avoid using out-of-date medication. The inhaler should be primed if brand new, dropped on the ground, or if not used in at least 2 or more weeks. While this medication is meant as needed and can be used every 4-6 hours per day, using it once daily or more can indicate uncontrolled symptoms. This can lead to more frequent symptoms, a toleranceto the medication, or risk of worsening asthma and/or COPD. To prime: Shake for 5 seconds, [place] the inhaler into the air away from the face 2-3 times before afull mist comes out. Review use of inhaler: Remove cap and check inside mouthpiece before using to avoid inhaling lint and crumbs. Shake inhaler. Breathe out fully, away from the inhaler. Insert mouthpiece into mouth. Breathe in deeply as you press down on canister. Remove mouthpiece from your mouth and hold your breath for 10 seconds or for as long as you can. Exhale slowly. Wipe mouthpiece with tissue after use. What we talked about: What I should do: Using Fosamax (Alendronate) Fosamax (Alendronate) is the medication you take to strengthen your bones. For best results, take this in the morning on an empty stomach at least 30 minutes before food and other medications. To prevent throat irritation, take with 6 to 8 ounces of plain water, and avoid bending over or laying down for at least 30 minutes afterwards. What we talked about: What I should do: Importance of Good Blood Sugars Diabetes is a progressive disease that affects the pancreas and its' ability to produce insulin. It can also affect how well your body uses what insulin it does make. Insulin is how your body controls the amount of sugar that is in your blood. When your body isn't utilizing its' insulin well or if it is not making enough of it, your blood sugar will accumulate in your body rather than getting rid of it. If sugars remain high and left untreated, risks of kidney, heart, eyesight, circulation and prolonged healing issues can occur. The quicker and more stable you can keep your blood sugar levels, the lower the stress that is on your body and the lower the risk of diabetes-related complications. What we talked about: What I should do: Vaccine Reminder SHINGLES VACCINE: You reported only taking 1 shot of the shingles vaccine. If you had the Zostavax vaccine for shingles, it is still recommended to get the Shingrix vaccine due to better and more long-lasting protection against the virus. If you received only one dose of the Shingrix vaccine (and not Zostavax), to get long-lasting protection, you do need the second dose. Depending on how long since you've last received your first dose, you either need to get the second dose or restart the series. The second dose is generally received 2 to 6 months after the first one. Talk toyour doctor about what one you received; they can guide you on the best course of action. RSV Vaccine: RSV is a respiratory virus that is becoming more and more common, like the yearly flu or cold. RSV especially affects those 65 years and older and infants. CDC is recommending the 1-timedose of RSV for those 60 and older to prevent serious illness. You can get the RSV vaccine at any of your local pharmacies. documented in this encounter Plan of Treatment Upcoming Encounters Date Type Department Care Team (Late st Contact Info) Description 11/30/2023 7:00 AM EDT Office Visit Sleep Disorders Ctr [facility] [address] [phone] Edilma Brown CRNP [address] [place] [address] 12/18/2023 1:40 PM EDT Office Visit Family [facility] [address] [place] [address] Jcarlos Laureano PA-C [address] [place] [address] 12/21/2023 10:00 AM EDT Office Visit Allergy/Immunology [facility] [address] [facility] [place] [address] Michael Vieira MD [address] [facility] [place], [place] [address] 12/24/2023 2:10 PM EDT Office Visit Dermatology [address], [place] [address] [place] [address] Amy Mckeon PA-C [address] [place] [address] 01/02/2024 3:15 PM EDT Office Visit Urology, [facility] [address] [facility] [place] [id number] Salvador Mireles MD [address] [place] [address] 09/18/2024 2:30 PM EDT Nurse Only Ancillary [address], [place] [address] [place] [address] [place], Nurse [facility] [address] [place] [address] Health Maintenance Due Date Last Done Comments [...] D LEVEL ONCE IN A LIFETIME-USE SMARTSET# [id number] Completed 04/30/2023, 12/21/2021, 09/13/2020, Additional history exists [...] as of this encounter Visit Diagnoses Diagnosis Referred for management of medication therapy- Primary Encounter for long-term (current) use of other medications documented in this encounter Care Teams Chemical Processing Equipment Repairer Relationship Specialty Start Date End Date Jcarlos Laureano PA-C [address] [facility] [place] [id number] PCP - General Physician Plating Engineer 07/10/23 documented as of this encounter
--- OUTSIDE RECORDS SUMMARY | 2024-03-06 04:10 | External Medical Summary | Summary of Care ---
Author Name Unknown Organization [facility] Address [address] [facility] [place] [address] Phone [phone] Care Team Providers Care Car Repairer Pullman Name Role Phone Jcarlos Laureano PA-C Primary Care Provide r Reason for Visit * Reason Onset Date Comments Other 10/12/2023 Vaccine question Encounter Details Date Type Department Care Team (Late st Contact Info) Description 10/12/2023 Telephone Family Practice [facility], [place] [address] [facility] [place] [id number] Jcarlos Laureano PA-C [address] [facility] [place] [id number] Other (Vaccine question ) [...] gene variant (c.1081 C>T, p.(Q361*)) detected via [employer] Increased risk for Inherited Arrhythmias. Please click [...] exercise-induced 10/07/2012 06/02/2016 Genetic Sleep Disorder Resea [facility] Other*[id number] 10/19/2011 01/20/2016 Other pulmonary embolism and infarction [...] encounter Miscellaneous Notes * Telephone Encounter - Sorin Schmitz MD [...] okay with getting and send order to [facility] [id number] Thank you, Mohini Momin CPhT II Radiologic Therapist [facility] (Former[facility]) 10/12/2023, 2:55 PM documented in this encounter Plan of Treatment Upcoming Encounters Date Type Department Care Team (Late st Contact Info) Description 11/30/2023 7:00 AM EDT Office Visit Sleep Disorders Ctr [facility] [address] [place] [phone] Edilma Brown CRNP [address] [place] [address] 12/18/2023 1:40 PM EDT Office Visit Family Practice [address] [place] [address] Jcarlos Laureano PA-C [address] [place] [address] 12/21/2023 10:00 AM EDT Office Visit Allergy/Immunology [facility] [address] [facility] [place] [address] Michael Vieira MD [address] [facility] [place] [address] 12/24/2023 2:10 PM EDT Office Visit Dermatology [address], [place] [address] [place] [address] Amy Mckeon PA-C [address] [place] [address] 01/02/2024 3:15 PM EDT Office Visit Urology, [facility] [address] [facility] [place] [address] Salvador Mireles MD [address] [facility] [address] [place] [address] 09/18/2024 2:30 PM EDT Nurse Only Ancillary [address], [place] [address] [place] [address] [place], Nurse [facility] [address] [place] [address] Health Maintenance Due Date Last Done Comments [...] D LEVEL ONCE IN A LIFETIME-USE SMARTSET# [id number] Completed 04/30/2023, 12/21/2021, 09/13/2020, Additional history exists [...] filedocumented as of this encounter Care Teams Car Repairer Pullman Relationship Specialty Start Date End Date Jcarlos Laureano PA-C [address] [facility] [place] [id number] PCP - General Physician Lime Kiln Worker 07/10/23 documented as of this encounter
--- OUTSIDE RECORDS SUMMARY | 2024-03-06 04:10 | External Medical Summary | Summary of Care ---
Author Name Unknown Organization [facility] Address [address] [facility] [place] [address] Phone [phone] Care Team Providers Care Jigger Crown Pouncing Machine Operator Name Role Phone Jcarlos Laureano PA-C Primary Care Provide r Reason for Visit * Reason Comments Medication Refill Encounter Details Date Type Department Care Team (Late st Contact Info) Description 11/29/2023 Refill Urology, [facility] [address] [facility] [place] [address] Salvador Bautista MD [address] [facility] [address] [place] [address] Allergies Active Allergy Reactions Criticality Noted Date [...] as of this encounter (statuses as of 11/29/2023) Medications Medication Sig Dispensed Refills Start Date [...] CUT OR CHEW 90 Capsule 3 11/24/2022 Active Estradiol 0.1 MG/GM Vaginal Cream (Estrace)Indications [...] needed. Medical Marijuana [place]aps[place] [address]-9.1 UNIT/GM-% External Cream (Mycolog)Indications :Yeast infection Apply to affected area two times per day for 1 week 15 g 2 11/22/2023 Active Latanoprost 0.005 % Ophthalmic Solution (Xalatan) Instill 1 Drop into both eyes at bedtime. 10 mL 3 11/23/2023 Active Tamsulosin HCl 0.4 MG Oral Capsule (Flomax) TAKE ONE CAPSULE BY MOUTH EVERY MORNING 90 Capsule 3 11/29/2023 5 Active Tamsulosin HCl 0.4 MG Oral Capsule (Flomax) TAKE ONE CAPSULE BY MOUTH EVERY MORNING 90 Capsule 3 12/18/2022 4 Discontinu ed(Refill) documented as of this encounter (statuses as of 11/29/2023) Active Problems Problem Noted Date Diagnosed Date Impingement syndrome of left shoulder 09/05/2022 Sacroiliitis, not elsewhere classified 3 Pure hypercholesterolemia 06/29/2022 Primary open-angle glaucoma, bilateral, mild sta ge 05/04/2022 Morbid obesity 05/04/2022 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 Increased risk for Inherited Arrhythmias. Please click [...] as of this encounter (statuses as of 11/29/2023) Resolved Problems Problem Noted Date Diagnosed Date [...] Overview: 02/14/18 While on vaction in [place] Facial laceration 02/21/2018 06/27/2021 Overview: 02/14/18 While on vaction in [place] Closed fracture of nasal bones 02/21/2018 06/27/2021 Overview: 02/14/18 While on vaction in [place] Fall on or from sidewalk curb 02/21/2018 03/13/2018 Overview: 02/14/18 While on vaction in [place] History of nonmelanoma skin cancer 06/12/2017 12/20/2017 Overview: BCC nasal bridge 12/02 Trochanteric bursitis of right hip 05/16/2017 12/20/2017 Hx of non anemic vitamin B12 deficiency 04/02/2017 12/20/2017 History of laminectomy 07/26/201612/20 HTN, goal below 150/90 12/24/201508/21 Bronchospasm, exercise-induced 10/07/2012 06/02/2016 Genetic Sleep Disorder [facility] Other*[id number] 10/19/2011 01/20/2016 Other pulmonary embolism and infarction [...] as of this encounter (statuses as of 11/29/2023) Immunizations Name Administration Dates Next Due COVID-19 [...] Telephone Encounter - Salvador Bautista MD - 11/29/2023 2:52 PM EDTSigned Prescriptions: Disp Refills Tamsulosin HCl 0.4 MG Oral Capsule (Flomax)90 Cap*3 Sig: TAKE ONE CAPSULE BY MOUTH EVERY MORNING Authorizing Provider: SALVADOR BAUTISTA * Telephone Encounter - Jacqueline Wayne LPN - 11/29/2023 8:04 AM EDT Pending Prescriptions: Disp Refills Tamsulosin HCl 0.4 MG Oral Capsule (Flomax)90 Cap*3 Sig: TAKE ONE CAPSULE BY MOUTH EVERY MORNING * Telephone Encounter - Jacqueline Wayne LPN - 11/29/2023 8:04 AM EDT Refill of tamsulosin requested. Last appt: 11/21/2022 (in office), Visit date not found (telemedicine) Next appt: 01/02/2024 Review of patient's allergies indicates: Allergen Reactions Compazine Neuro complications (Please comment) and Other (Please comment) Naproxen Sodium Other Reaction(s): SOB, HIVES WITH ALEVE Adhesive Tape Blister Latex Other Reaction(s): blisters Levofloxacin Other Reaction(s): Unknown Lovenox [Enoxaparin Sodium] Yeast infection Macrobid [Nitrofurantoin] Nausea/vomiting Morphine Itching Penicillins Other Reaction(s): occured as a child, severe itching Ibuprofen Other Reaction(s): HIVES Thank you, Marlin documented in this encounter Plan of Treatment Upcoming Encounters Date Type Department Care Team (Late st Contact Info) Description 12/18/2023 10:00 AM EDT Office Visit Sleep Disorders Ctr [facility] [address] [facility] [place] [phone] Edilma Brown CRNP [address] [facility] [place] [address] 12/18/2023 1:40 PM EDT Office Visit Family Practice [facility] [address] [place] [address] Jcarlos Laureano PA-C [address] [place] [address] 12/21/2023 10:00 AM EDT Office Visit Allergy/Immunology [facility] [address] [facility] [place] [address] Michael Vieira MD [address] [facility] [place] [address] 01/02/2024 3:15 PM EDT Office Visit Urology, [facility] [address] [facility] [place] [address] Salvador Bautista MD [address] [facility] [address] [place] [address] 02/05/2024 8:40 AM EDT Office Visit Dermatology [facility] [address] [place] [address] Amy Mckeon PA-C [address] [place] [address] 09/18/2024 2:30 PM EDT Nurse Only Ancillary [place] [facility] [address] [address] [place] [address] [place], Nurse [facility] [address] [place] [address] Health Maintenance Due Date Last Done Comments [...] D LEVEL ONCE IN A LIFETIME-USE SMARTSET# [id number] Completed 04/30/2023, 12/21/2021, 09/13/2020, Additional history exists [...] filedocumented as of this encounter Care Teams Jigger Crown Pouncing Machine Operator Relationship Specialty Start Date End Date Jcarlos Laureano PA-C [address] [facility] [place] [id number] PCP - General Physician Box Toe Cutter 07/10/23 documented as of this encounter
--- OUTSIDE RECORDS SUMMARY | 2024-03-06 04:11 | External Medical Summary | Summary of Care ---
Author Name Unknown Organization [facility] Address [address] [place] [address] Phone [phone] Care Team Providers Care Skirt Trimmer Name Role Phone Jcarlos Laureano PA-C Primary Care Provide r Reason for Visit * Reason Onset Date Comments Adult Annual Wellness Visit, Subsequent Visit Encounter Details Date Type Department Care Team (Late st Contact Info) Description 09/13/2023 10:30 AM EDT Nurse Only Ancillary [address], [place] [address] [place] [address] [place], Nurse Annual Wellness Cold [address] [facility] [place] [id number] Adult Annual Wellness Visit, Subsequent Visit Allergies Active Allergy Reactions Criticality Noted Date [...] as of this encounter (statuses as of 09/13/2023) Medications Medication Sig Dispensed Refills Start Date End Date Status nystatin-triamcin olone (MYCOLOG) 927713-8.1 UNIT/GM-% cream Apply to affected area two times per day for 1 week 15 g 2 02/06/2017 Active betamethasone valerate (VALISONE) 0.1 % OINT Apply topically to affected area 2 times a day. Apply to affected area twice daily as needed 15 g 1 01/28/2018 Active Nystatin 313938 UNIT/GM External Powder (Nystop)Indicatio ns:SIMS (nonalcoholic steatohepatitis) APPLY TO AFFECTED AREA(S) THREE TIMES A DAY 180 g 0 12/05/2021 Active Ipratropium-Albut duran 0.5-2.5 (3) MG/3ML Inhalation Solution (Duoneb) Inhale 3 mL by mouth every 8 hours as needed. 0 04/24/2022 Active Clotrimazole-Beta methasone 1-0.05 % External Cream Apply topically to affected area 2 times a day. 0 Active Docusate Sodium 100 MG Oral Capsule (Colace) Take 1 Capsule by mouth daily as needed. 0 Active Delsym Cough/Chest Congest DM 5-100 MG/5ML Oral Liquid (Dextromethorphan -guaiFENesin) Take by mouth. 0 Active Tamsulosin HCl 0.4 MG Oral Capsule (Flomax) TAKE ONE CAPSULE BY MOUTH EVERY MORNING 90 Capsule 3 12/18/2022 4 Active Alendronate Sodium 70 MG Oral Tablet (Fosamax)Indicati ons:Age-related osteoporosis without current pathological fracture TAKE ONE TABLET BY MOUTH ONCE A WEEK WITH 8 OZ OF WATER 30 MINUTES BEFORE FIRST MEAL OF THE DAY. REMAIN UPRIGHT FOR 30 MINUTES AFTER TAKING TABLET 15 Tablet 3 12/15/2022 4 Active DULoxetine HCl 60 MG Oral Capsule Delayed Release Particles (Cymbalta)Indicat ions:HTN, goal below 150/90 TAKE ONE CAPSULE BY MOUTH EVERY DAY DO NOT CRUSH, CUT OR CHEW 90 Capsule 3 11/24/2022 4 Active Latanoprost 0.005 % Ophthalmic Solution (Xalatan) INSTILL ONE DROP INTO EACH EYE AT BEDTIME 10 mL 3 11/23/2022 4 Active Clobetasol Propionate 0.05 % External Cream (Temovate)Indicat ions:Chronic vulvitis USE A PEA SIZE AMOUNT ON THE AFFECTED AREA ONCE WEEKLY, OR USE NEEDED TWICE DAILY, FOR NO MORE THAN TWO WEEKS 60 g 2 11/22/2022 4 Active Estradiol 0.1 MG/GM Vaginal Cream (Estrace)Indicati ons:Vaginal atrophy Apply 1/2 g topically to affected area in the morning. 42.5 g 6 02/08/2023 Active Gabapentin 400 MG Oral Capsule (Neurontin)Indica tions:Sacroiliiti s, not elsewhere classified (HCC) Take 1 Capsule by mouth in the morning and 1 Capsule at noon and 1 Capsule before bedtime. 270 Capsule 3 02/19/2023 Active Apixaban 5 MG Oral Tablet (Eliquis)Indicati ons:HTN, goal below 150/90,Edema TAKE ONE TABLET BY MOUTH EVERY MORNING AND TAKE ONE TABLET BY MOUTH AT BEDTIME 200 Tablet 3 04/17/2023 Active Sulfamethoxazole- Trimethoprim 400-80 MG Oral Tablet (Bactrim) Take 1 Tablet by mouth at bedtime. 90 Tablet 3 05/24/2023 Active Omeprazole 40 MG Oral Capsule Delayed Release (PriLOSEC)Indicat ions:Gastroesopha geal reflux disease with esophagitis without hemorrhage Take 1 Capsule by mouth in the morning. 90 Capsule 1 06/28/2023 Active Ozempic (2 MG/DOSE) 8 MG/3ML Subcutaneous Solution Pen-injector (Semaglutide (2 MG/DOSE))Indicati ons:Class 2 severe obesity due to excess calories with serious comorbidity and body mass index (BMI) of 36.0 to 36.9 in adult (HCC) Inject 2 mg under the skin once a week. 3 mL 2 08/21/2023 Active Folic Acid 1 MG Oral TabletIndications :MTHFR mutation TAKE ONE TABLET BY MOUTH EVERY DAY 90 Tablet 3 08/27/2023 5 Active Anoro Ellipta 62.5-25 MCG/ACT Inhalation Aerosol Powder Breath Activated (umeclidinium-aki anterol) inhale 1 puff by mouth daily 180 Each 1 08/28/2023 Active Albuterol Sulfate HFA 108 (90 Base) MCG/ACT Inhalation Aerosol Solution inhale 2 puffs by mouth every 6 hours as needed for shortness of breath or wheezing 54 g 1 08/28/2023 Active Lisinopril 2.5 MG Oral Tablet (Prinivil)Indicat ions:Prolonged QT interval,Abnormal genetic test,HTN, goal below 140/90,Dyslipidem ia, goal LDL below 100 Take 1 Tablet by mouth in the morning. 100 Tablet 2 08/31/2023 Active Metoprolol Succinate ER 25 MG Oral Tablet Extended Release 24 Hour (toPROL XL)Indications:Pr olonged QT interval,Abnormal genetic test,HTN, goal below 140/90,Dyslipidem ia, goal LDL below 100 Take 1 Tablet by mouth in the morning. 100 Tablet 3 08/31/2023 Active Rosuvastatin Calcium 5 MG Oral Tablet (Crestor)Indicati ons:Prolonged QT interval,Abnormal genetic test,HTN, goal below 140/90,Dyslipidem ia, goal LDL below 100 Take 1 Tablet by mouth in the morning. 100 Tablet 3 08/31/2023 Active Umeclidinium-Prudencio nterol 62.5-25 MCG/ACT Inhalation Aerosol Powder Breath Activated (ANORO ellipta)Indicatio ns:lungs (pneumonia) Inhale 1 Puff by mouth in the morning. 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 Increased risk for Inherited Arrhythmias. Please click [...] as of this encounter (statuses as of 09/13/2023) Resolved Problems Problem Noted Date Diagnosed Date [...] Overview: 02/14/18 While on vaction in [place] Facial laceration 02/21/2018 06/27/2021 Overview: 02/14/18 While on vaction in [place] Closed fracture of nasal bones 02/21/2018 06/27/2021 Overview: 02/14/18 While on vaction in [place] Fall on or from sidewalk curb 02/21/2018 03/13/2018 Overview: 02/14/18 While on vaction in [place] History of nonmelanoma skin cancer 06/12/2017 12/20/2017 Overview: BCC nasal bridge 12/02 Trochanteric bursitis of right hip 05/16/2017 12/20/2017 Hx of non anemic vitamin B12 deficiency 04/02/2017 12/20/2017 History of laminectomy 07/26/201612/20 HTN, goal below 150/90 12/24/201508/21 Bronchospasm, exercise-induced 10/07/2012 06/02/2016 Genetic Sleep Disorder [facility] Other*[id number] 10/19/2011 01/20/2016 Other pulmonary embolism and infarction [...] as of this encounter (statuses as of 09/13/2023) Immunizations Name Administration Dates Next Due COVID-19 [...] Date Recorded PHQ Adult Total Score 0 07/13/2022 Hunger Vital Sign Answer Date Recorded Within the past 12 months, y ou worried that your food would run out before you got the money to buy more. Never true 07/13/19 23 Within the past 12 months, t he food you bought just didn't last and you didn't have money to get more. Never true 07/13/2022 Sex and Gender Information Value Date Recorded Sex Assigned at Female 07/13/2022 1:49 PM EST Gender Identity Female 07/13/2022 1:49 PM EST Sexual Orientation Straight 07/13/2022 1: 49 PM EST Job Start Date Occupation Industry Not on file Not on file Not on file documented as of this encounter Last Filed Vital Signs Vital Sign Reading Time Taken Comments Blood Pressure 120/70 09/13/2023 10:38 AM EDT Pulse 88 09/13/2023 10:38 AM EDT Temperature 37.1 C (98.8 F) 09/13/2023 10:38 AM E DT Respiratory Rate - - Oxygen Saturation - - Inhaled Oxygen Concentration - - Weight 79.1 kg (174 lb 6.4 oz) 09/13/2023 10:38 AM EDT Height 147.3 cm (4' 10") 09/13/2023 10:38 AM EDT Body Mass Index 36.45 09/13/2023 10:38 AM EDT documented in this encounter Patient Instructions * Patient Instructions* Cathi Higgins RN - 09/13/2023 10:31 AM EDT Hi Ms. Weems, As your primary care physician, I know that regular visits with my patients who have several chronic conditions can go a long way in helping you stay healthy. Many times, the clinic team and I are in touch with you and/or other care team members between office visits to adjust medications, discuss any changes in your health, and review our care plan to make sure it is still meeting your needs. I am dedicated to helping you take a more active role in your overall care. It is important that there are resources available to you, so I created a personalized plan of care with a Health Calendar for you, which is included on the next page of this letter. Below is a list that summarizes your electronic health record: Health Maintenance Due: Health Maintenance Due Topic Date Due Zoster Vaccines (2 of 3) 11/17/2013 COVID-19 Vaccine ( season) 2023 Depression Screening 07/13/2023 Current Medication List: (as of Visit date not found (in office), Visit date not found (telemedicine) ) Current Outpatient Medications Medication Sig Dispense Refill nystatin-triamcinolone (MYCOLOG) 664311-8.1 UNIT/GM-% cream Apply to affected area two times per day for 1 week 15 g 2 betamethasone valerate (VALISONE) 0.1 % OINT Apply topically to affected area 2 times a day. Apply to affected area twice daily as needed 15 g 1 Nystatin 885923 UNIT/GM External Powder (Nystop) APPLY TO AFFECTED AREA(S) THREE TIMES A DAY 180 g 0 Umeclidinium-Vilanterol 62.5-25 MCG/ACT Inhalation Aerosol Powder Breath Activated (ANORO ellipta) Inhale 1 Puff by mouth in the morning. Ipratropium-Albuterol 0.5-2.5 (3) MG/3ML Inhalation Solution (Duoneb) Inhale 3 mL by mouth every 8 hours as needed. (Patient not taking: Reported on 08/31/2023) Clotrimazole-Betamethasone 1-0.05 % External Cream Apply topically to affected area 2 times a day. Docusate Sodium 100 MG Oral Capsule (Colace) Take 1 Capsule by mouth daily as needed. Delsym Cough/Chest Congest DM 5-100 MG/5ML Oral Liquid (Dextromethorphan- guaiFENesin) Take by mouth. Tamsulosin HCl 0.4 MG Oral Capsule (Flomax) [...] MORE THAN TWO WEEKS 60 g 2 Estradiol 0.1 MG/GM Vaginal Cream (Estrace) Apply 1/2 g topically to affected area in the morning. 42.5 g 6 Gabapentin 400 MG Oral Capsule (Neurontin) Take 1 Capsule by mouth in the morning and 1 Capsuleat noon and 1 Capsule before bedtime. 270 Capsule 3 Apixaban 5 MG Oral Tablet (Eliquis) TAKE ONE TABLET BY MOUTH EVERY MORNING AND TAKE ONE TABLET BY MOUTH AT BEDTIME 200 Tablet 3 Sulfamethoxazole-Trimethoprim 400-80 MG Oral Tablet (Bactrim) Take 1 Tablet by mouth at bedtime. 90 Tablet 3 Omeprazole 40 MG Oral Capsule Delayed Release (PriLOSEC) Take 1 Capsule by mouth in the morning. 90 Capsule 1 Ozempic (2 MG/DOSE) 8 MG/3ML Subcutaneous Solution Pen-injector (Semaglutide (2 MG/DOSE)) Inject 2 mg under the skin once a week. 3 mL 2 Folic Acid 1 MG Oral Tablet TAKE ONE TABLET BY MOUTH EVERY DAY 90 Tablet 3 Anoro Ellipta 62.5-25 MCG/ACT Inhalation Aerosol Powder Breath Activated (umeclidinium-vilanterol) inhale 1 puff by mouth daily 180 Each 1 Albuterol Sulfate HFA 108 (90 Base) MCG/ACT Inhalation Aerosol Solution inhale 2 puffs by mouthevery 6 hours as needed for shortness of breath or wheezing 54 g 1 Lisinopril 2.5 MG Oral Tablet (Prinivil) Take 1 Tablet by mouth in the morning. 100 Tablet 2 Metoprolol Succinate ER 25 MG Oral Tablet Extended Release 24 Hour (toPROL XL) Take 1 Tablet bymouth in the morning. 100 Tablet 3 Rosuvastatin Calcium 5 MG Oral Tablet (Crestor) Take 1 Tablet by mouth in the morning. 100 Tablet 3 No current facility-administered medications for this visit. Current List of Allergies: (as of Visit date not found (in office), Visit date not found (telemedicine) ) Review of patient's allergies indicates: Allergen Reactions Compazine Neuro complications (Please comment) and Other (Please comment) Naproxen Sodium Other Reaction(s): SOB, HIVES WITH ALEVE Adhesive Tape Blister Latex Other Reaction(s): blisters Levofloxacin Other Reaction(s): Unknown Lovenox [Enoxaparin Sodium] Yeast infection Macrobid [Nitrofurantoin] Nausea/vomiting Morphine Itching Penicillins Other Reaction(s): occured as a child, severe itching Ibuprofen Other Reaction(s): HIVES Most Recent Lab Results: Results for orders placed or performed in visit on 04/30/23 VITAMIN B12 Result Value Ref Range Vitamin B12 363 232 - 1,245 pg/mL 25-HYDROXY VITAMIN D Result Value Ref Range 25-Hydroxy Vitamin D 41 >19 ng/mL LIPID PANEL WITH DIRECT LDL IF TG IS HIGH Result Value Ref Range Triglycerides 207 (H) <=174 mg/dL Cholesterol 223 (H) <200 mg/dL HDL Cholesterol 42 (L) >49 mg/dL Non-HDL Cholesterol 181 (H) <=159 mg/dL LDL Cholesterol 140 (H) <=129 mg/dL COMPREHENSIVE METABOLIC PANEL Result Value Ref Range BUN 16 6 - 20 mg/dL Creatinine 0.7 0.5 - 1.0 mg/dL Estimated Glomerular Filtration Rate 90 >=60 mL/min Sodium 140 135 - 146 mmol/L Potassium 4.6 3.5 - 5.1 mmol/L Chloride 102 98 - 107 mmol/L CO2 27 22 - 32 mmol/L Anion Gap 11 7 - 15 mmol/L Glucose 94 70 - 120 mg/dL Albumin 4.6 3.8 - 5.0 g/dL AST 21 10 - 35 U/L Alkaline Phosphatase 77 35 - 130 U/L Bilirubin, Total 0.2 <=1.2 mg/dL Calcium 9.7 8.4 - 10.2 mg/dL Protein 6.3 6.0 - 8.3 g/dL ALT 19 10 - 35 U/L HEMOGLOBIN A1C Result Value Ref Range Hemoglobin A1C 5.2 4.0 - 5.6 % Estimated Average Glucose 103 <126 mg/dL TSH WITH FREE T4 IF INDICATED Result Value Ref Range TSH 1.04 0.27 - 4.20 uIU/mL ANEMIA CBC Result Value Ref Range WBC 4.55 4.00 - 10.80 K/uL RBC 4.42 3.85 - 5.15 M/uL HGB 14.2 12.0 - 15.3 g/dL HCT 45.6 (H) 36.0 - 45.2 % MCV 103.2 81.5 - 97.5 fL MCH 32.1 27.0 - 34.0 pg MCHC 31.1 32.0 - 36.0 g/dL RDW 12.7 11.5 - 15.5 % PLT 191 140 - 400 K/uL MPV 10.0 6.6 - 11.1 fL nRBCs 0 <=0 /100 WBCs DIFFERENTIAL, AUTOMATED Result Value Ref Range WBC 4.55 4.00 - 10.80 K/uL Neutrophils % 59.6 40.0 - 75.0 % Lymphocytes % 30.3 18.0 - 42.0 % Monocytes % 5.5 1.0 - 11.0 % Eosinophils % 3.3 0.0 - 6.0 % Basophils % 0.9 0.0 - 2.0 % Immature Granulocytes % 0.4 0.0 - 2.0 % Absolute Neutrophils 2.71 1.80 - 7.70 K/uL Absolute Lymphocytes 1.38 1.00 - 4.80 K/ul Absolute Monocytes 0.25 0.00 - 1.10 K/uL Absolute Eosinophils 0.15 0.00 - 0.70 K/uL Absolute Basophils 0.04 0.00 - 0.20 K/uL Absolute Immature Granulocytes 0.02 0.00 - 0.20 K/uL *Note: Due to a large number of results and/or encounters for the requested time period, some results have not been displayed. A complete set of results can be found in Results Review. Sincerely, Jcarlos Laureano PA-C 09/13/2023 [facility] Calendar (as of Visit date not found (in office), Visit date not found (telemedicine) ) Care needs Care needs Last completed Due next Zoster (Shingles) Vaccine (2 of 3) 09/22/2013 11/17/2013 COVID-19 Vaccine ( season) 2021 02/23/2023 Bone Density 12/06/2022 12/06/2024 Diphtheria, tetanus & pertussis vaccines (3 - Td or Tdap) 12/24/2015 12/23/2025 As you look over the recommended services, be sure to check with your insurance company to determine what's covered. [employer] is a great tool that helps you review your medical record online, including test results, doctor notes and your health summary. You can also schedule appointments with me and other members of your care team, request prescription refills and ask for advice related to your medical conditions at [email or web address]. Patient Instructions - Fall Prevention (This education is for all patients over 65 regardless of symptoms) Remember to take your current medications as prescribed. In order to prevent falls, you are encouraged to: Exercise Utilize assistive/adaptive devices Avoid multifocal lenses when walking Avoid hazards in home Maintain a regular toileting schedule Any questions please contact our office. Preventing Falls in the Home (This education is for all patients over 65 regardless of symptoms) As you get older, falls are more likely. Thats because your reaction time slows. Your muscles and joints may also get stiffer, making them less flexible. Illness, medications, and vision changes can also affect your balance. A fall could leave you unable to live on your own. To make your home safer, follow these tips: Floors Put nonskid pads under area rugs Remove throw rugs Replace worn floor coverings Tack carpets firmly to each step on carpeted stairs. Put nonskid strips on the edges of uncarpeted stairs Keep floors and stairs free of clutter and cords Arrange furniture so there are clear pathways Clean up any spills right away Bathrooms Install grab bars in the tub or shower Apply nonskid strips or put a nonskid rubber mat in the tub or shower Sit on a bath chair to bathe Use bathmats with nonskid backing Lighting Keep a flashlight in each room Put a nightlight along the pathway between the bedroom and the bathroom [employer] Patient Education Copyright 2008 - 2010 [employer] except where otherwise noted Kegel Exercises Kegel exercises dont require special clothing or equipment. Theyre easy to learn and simple to do. And if you do them right, no one can tell youre doing them, so they can be done almost anywhere. Your doctor, nurse, or physical therapist can answer any questions you have and help you get started. A Weak Pelvic Floor The pelvic floor muscles may weaken due to aging, and vaginal childbirth, injury, surgery, chronic cough, or lack of exercise. If the pelvic floor is weak, your bladder and other pelvic organs may sag out of place. The urethra may also open too easily and allow urine to leak out. Kegel exercises can help you strengthen your pelvic floor muscles so they can better support the pelvic organs and control urine flow. How Kegel Exercises Are Done Try each of the Kegel exercises described below. When youre doing them, try not to move your leg, buttock, or stomach muscles. While youre urinating, try to stop the flow of urine. Start and stop it as often as you can. Contract as if you were stopping your urine stream, but do it when youre not urinating. Tighten your rectum as if trying not to pass gas. Contract your anus, but dont move your buttocks. Helpful Hints Do your Kegels as often as you can. The more you do them, the faster youll feel the results. Pick an activity you do often as a reminder. For instance, do your Kegels every time you sit down. Tighten your pelvic floor before you sneeze, get up from a chair, cough, laugh, or lift. This protects your pelvic floor from injury and can help prevent urine leakage. Try to hold each Kegel for a slow count to five. You probably wont be able to hold them for thatlong at first, but keep practicing. It will get easier as your pelvic floor gets stronger. Eventually, special weights that you place in your vagina may be recommended to help make your Kegels even more effective. [employer] Patient Education Copyright 2008 - 2010 [employer] except where otherwise noted. documented in this encounter Progress Notes * Cathi Higgins RN - 09/13/2023 10:31 AM EDT Adult Annual Wellness Visit: Missy Weems is a 78 year old female who presents for an Adult Annual Wellness Visit. Depression Screening: Did the patient complete the screening questionnaire for Depression? Yes Is the patient's total score for Depression 15 or greater? No, no further intervention needed, unless requested by patient. Did the patient answer positively to the suicide question? No, no further intervention needed, unless requested by patient. In general, compared to other people your age, what would you say that your health is? Fair Ht Readings from Last 1 Encounters: 09/13/23 1.473 m (4' 10") Wt Readings from Last 1 Encounters: 09/13/23 79.1 kg (174 lb 6.4 oz) Body Mass Index: BMI Greater than 30 Body mass index is 36.45 kg/m. 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 Closed fracture of nasal bones 02/21/2018 02/14/18 While on vaction in [place] Contusion of face 02/21/2018 02/14/18 While on vaction in [place] Coronary artery disease (CAD) excluded negative nuclear stress test Cyst of bursa right knee Esophageal reflux Facial laceration 02/21/2018 02/14/18 While on vaction in [place] Facial laceration 02/21/2018 02/14/18 While on vaction in [place] Fall on or from sidewalk curb 02/21/2018 02/14/18 While on vaction in [place] Fatty liver disease, nonalcoholic HTN, goal below 140/90 Lipoma of unspecified site 3 total Normal cardiac stress test 06/2011 nuclear LUIS (obstructive sleep apnea) mild not on c-pap PE (pulmonary embolism) 06/04 workup +ve MTHFR homo ,nl homocysteine Seasonal allergic rhinitis due to pollen 09/11/2018 Spinal stenosis, unspecified region other than cervical L 5 Past Surgical History: Procedure Laterality Date ARTHROPLASTY KNEE TOTAL Right 03/2018 COLONOSCOPY, DIAGNOSTIC (RECTUM) 06/04/2019 diverticulosis / [facility] COLORECTAL CANCER SCREEN; NOT AT RISK 07/13/2010 normal colon exam repeat in 10 years EGD, FLEXIBLE, DIAGNOSTIC 09/03/2012 UPPER GI ENDOSCOPY DIAGNOSTIC performed by David Grimes MD at [facility], no evidence of celiac disease or infection, symptoms most likely related to potassium supplements EGD, FLEXIBLE, DIAGNOSTIC 06/04/2019 acid reflux / [facility] EXC BREAST LESION RADMARK Right 11/09/2015 EXCISION OF BREAST LESION RADIOLOGICAL MARKER performed by Missy Cordero MD at OR [facility] dx right breast tissue 9:00, needle localized excision breast tissue with focal areas of fibrocystic changeand abudant mature adipose tissue - EXC BREAST LESION RADMARK Right 03/09/2020 EXCISION OF BREAST LESION RADIOLOGICAL MARKER performed by Haresh Moulton MD at OR [facility] IR FILTER PLACEMENT VENA CAVA 06/23/11 MISCELLANEOUS ORDER ([facility] ONLY) 2012 spinal fusion REMOVAL OF APPENDIX 1950 REMOVAL OF LINGUAL TONSIL 1948 REMOVE GALLBLADDER 1964 SACROILIAC JOINT INJECT W/GUIDANCE 03/01/2022 INJECTION SACROILIAC JOINT performed by Leonard Ocampo DO at OR [facility] SACROILIAC JOINT INJECT W/GUIDANCE 10/04/2022 INJECTION SACROILIAC JOINT performed by Leonard Ocampo, at OR [facility] SACROILIAC JOINT INJECT W/GUIDANCE 01/10/2023 INJECTION SACROILIAC JOINT performed by Leonard Ocampo DO at OR [facility] SACROILIAC JOINT INJECT W/GUIDANCE 06/06/2023 INJECTION SACROILIAC JOINT performed by Leonard Ocampo DO at OR [facility] SPINAL FUSION, LUMBAR, COMBINED 2012 Dr. Garcia TOTAL ABD HYSTERECTOMY W/WO REMOVAL OF TUBE(S) 1979 for fibroid TREAT NOSE FX W/STABILIZATION Right 02/28/2018 CLOSED TREATMENT NASAL FRACTURE WITH STABILIZATION performed by James De Jesus DO at OR [facility] Family History Problem Relation Age of Onset Lymphoma Mother Heart Disorder Father age 91 Rheum arthritis Father Other (hemochromotosis) Sister Rheum arthritis Sister Other (hemochromotosis) Brother Rheum arthritis Brother Rheum arthritis Brother Rheum arthritis Brother Has patient ever had cancer? No Social History Tobacco Use Smoking status: Former Current packs/day: 0.00 Average packs/day: 0.5 packs/day for 25.0 years (12.5 ttl pk-yrs) Types: Cigarettes Start date: 04/05/1965 Quit date: 04/05/1990 Years since quittin.4 Smokeless tobacco: Never Substance Use Topics Alcohol use: Yes Alcohol/week: 1.0 standard drink of alcohol Types: 1 12 oz of beer per week Vaping/E-Cigarette Use Vaping/E-Cigarette Use Never User Vaping/E-Cigarette Substances Vaping/E-Cigarette Devices Tobacco/Alcohol screening completed today? Yes Hospital Care: Admissions (within the last year): Not Applicable ER within 30 days: No Does the patient have an Advance Directives/Living Will? Yes Last Physical Exam: Last physical exam: 08/21 Does patient see primary provider regularly? Yes Does patient see other providers? Yes, Specialist Patient Care Team updated? Yes Review of patient's allergies indicates: Allergen Reactions Compazine Neuro complications (Please comment) and Other (Please comment) Naproxen Sodium Other Reaction(s): SOB, HIVES WITH ALEVE Adhesive Tape Blister Latex Other Reaction(s): blisters Levofloxacin Other Reaction(s): Unknown Lovenox [Enoxaparin Sodium] Yeast infection Macrobid [Nitrofurantoin] Nausea/vomiting Morphine Itching Penicillins Other Reaction(s): occured as a child, severe itching Ibuprofen Other Reaction(s): HIVES Immunization History Administered Date(s) Administered COVID-19 mRNA, [...] older)(Boostrix) 12/24/2015 Varicella Zoster Vaccine (Adult) 09/22/2013 Current Outpatient Medications Medication Sig Dispense Refill nystatin-triamcinolone (MYCOLOG) 106992-1.1 UNIT/GM-% cream Apply to affected area two times per day for 1 week 15 g 2 betamethasone valerate (VALISONE) 0.1 % OINT Apply topically to affected area 2 times a day. Apply to affected area twice daily as needed 15 g 1 Nystatin 322419 UNIT/GM External Powder (Nystop) APPLY TO AFFECTED AREA(S) THREE TIMES A DAY 180 g 0 Clotrimazole-Betamethasone 1-0.05 % External Cream Apply topically to affected area 2 times a day. Docusate Sodium 100 MG Oral Capsule (Colace) Take 1 Capsule by mouth daily as needed. Tamsulosin HCl 0.4 MG Oral Capsule (Flomax) [...] MORE THAN TWO WEEKS 60 g 2 Estradiol 0.1 MG/GM Vaginal Cream (Estrace) Apply [...] Tablet by mouth at bedtime. 90Tablet 3 Omeprazole 40 MG Oral Capsule Delayed Release (PriLOSEC) Take 1 Capsule by mouth in the morning. 90Capsule 1 Ozempic (2 MG/DOSE) 8 MG/3ML Subcutaneous Solution Pen-injector (Semaglutide (2 MG/DOSE)) Inject 2 mg under the skin once a week. 3 mL 2 Folic Acid 1 MG Oral Tablet TAKE [...] mouth in the morning. 100 Tablet 3 Ipratropium-Albuterol 0.5-2.5 (3) MG/3ML Inhalation Solution (Duoneb) Inhale 3 mL by mouth every 8 hours as needed. (Patient not taking: Reported on 08/31/2023) Delsym Cough/Chest Congest DM 5-100 MG/5ML Oral Liquid (Dextromethorphan- guaiFENesin) Take by mouth. No current facility-administered medications for this visit. Patient Active Problem List Diagnosis Code Lumbar spinal stenosis M48.061 LUIS (obstructive sleep apnea) G47.33 SIMS (nonalcoholic steatohepatitis) K75.81 DIAN (generalized anxiety disorder) F41.1 Dyslipidemia E78.5 BPPV (benign paroxysmal positional vertigo) H81.10 Primary osteoarthritis of both knees M17.0 Gastroesophageal reflux disease with esophagitis K21.00 Presence of IVC filter Z95.828 Methylenetetrahydrofolate reductase (MTHFR) deficiency ([facility]) E72.12 Seasonal allergic rhinitis due to pollen J30.1 Major depressive disorder with single episode, in full remission (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) E66.01 Sacroiliitis, not elsewhere classified ([facility]) M46.1 Pure hypercholesterolemia E78.00 Impingement syndrome of left shoulder M75.42 Medication Compliance: Patient is able to obtain all of her medications? Yes Patient takes medications as prescribed? Yes Patient manages own medications: Yes Patient uses a pill box? Yes, refill(s) completed by self Dental Exam: Yes: Every 6 Months Eye Screening: Yes: Every 4 months Are you having trouble with hearing? No Do you use an assistive device to help your hearing? No Exercise Screening: does not exercise regularly Nutrition Assessment: Eats a poorly balanced diet Pain Screening: Are you having any pain? Yes. Pain Scale: 6 out of 10; pt still experiencing low back pain. She hasDuloxetine prescribed but thought it was just PRN, not something she needs daily. She will start taking it daily to see if that helps Sleep Screening Tool 'STOP': Do you snore? No Do you feel fatigued during the day? No Do you wake up feeling like you haven't slept? No Have you been told you stop breathing at night? No Do you gasp for air or choke while sleeping? No Have you been told you have Sleep Apnea? Yes Do you have high blood pressure or are on medication(s) to control high blood pressure? Yes SCORE: If you check YES to two or more questions, make a referral for Obstructive Sleep Apnea Pt has a dx of LUIS and wears CPAP at night Patient and Caregiver Support System: Patient lives alone Means of Transportation: Drives. Not a concern. Patient lives in One Story - with basement stairs: approx 10 steps to both the basement and attic with railings Community Resources: Not Applicable Functional Status and ADL Skills: Has patient ever had an amputation? No Functional Assessment: 90- Able to carry on normal activity, minor symptoms of disease Ambulation: Patient ambulates without assistive device. Independent Dressing: Gets clothes and dresses without any assistance: Independent Able to move freely in chair or bed including turning over: Independent Repositioning (bed or chair): Not applicable Transfers: Independent Toileting: Goes to bathroom, uses toilet, arranges clothes and returns without any assistance: Independent Toileting: continent of bladder and continent of bowel Feeding: Self Bathing: Self; walk in shower Requires none assistance with ADLs. Instrumental ADL's: Shopping: Independent Housekeeping: Independent Handling Finances: Independent DME Vendor Name: Not Applicable Fall Risk Assessment: Can the patient demonstrate that she can stand from a sitting position? Yes Has the patient had a fall within the last 6 months? No Does the patient have a problem with her gait or balance? No Does the patient take 4 or more prescription medicines? Yes Does the patient use sedatives or narcotics? No Fall Risk Factors Present: Uses more than 4 medications Older than age 70 Rke-Nk-hrr-Go Test: Time began at 1030. Patient stood from sitting position and walked approximately 10 feet, returned and sat down. Total time for xzz-nq-edu-go test was 10 seconds. Gmq-Mi-pvs-Go Test completed? Yes Gender Specific Preventative Plan: Health Maintenance Topic Date Due Zoster Vaccines (2 of 3) 11/17/2013 COVID-19 Vaccine (4 - 2022- season) 2023 Depression Screening 09/12/2024 DXA Scan 12/06/2024 DTaP,Tdap,and Td Vaccines (3 - Td or Tdap) 12/23/2025 VITAMIN D LEVEL ONCE IN A LIFETIME-USE SMARTSET# [id number] Completed Influenza Vaccine (FLU shot) Completed Hepatitis C Screening Completed Pneumococcal Vaccine: 65+ Years Completed Hepatitis B Aged Out MENINGOCOCCAL (MENACTRA/MENVEO) Aged Out GARDASIL-HPV IMMUNIZATION SERIES Aged Out Albumin/Creatinine Ratio Discontinued Follow Up/ Referrals/Handouts: No further action needed Routine general medical examination at a health care facility (Primary) Risk and functional assessment AWV completed today Vaginal atrophy - Med reconciliation completed and compliance discussed. - pt to continue present medications. Stress incontinence of urine - Med reconciliation completed and compliance discussed. - pt to continue present medications. Sacroiliitis, not elsewhere classified (HCC) - Med reconciliation completed and compliance discussed. - pt to continue present medications. Recurrent UTI - Med reconciliation completed and compliance discussed. - pt to continue present medications. Primary open-angle glaucoma, bilateral, mild stage - Med reconciliation completed and compliance discussed. - pt to continue present medications. LUIS (obstructive sleep apnea) -continue using CPAP -continue following with sleep medicine SIMS (nonalcoholic steatohepatitis) -continue following with pcp Morbid obesity (HCC) -continue following with pcp BMI Readings from Last 3 Encounters: 09/13/23 36.45 kg/m 08/31/23 36.16 kg/m 08/21/23 36.12 kg/m Major depressive disorder with single episode, in full remission (HCC) - Med reconciliation completed and compliance discussed. - pt to continue present medications. High risk for fracture due to osteoporosis by DEXA scan - Med reconciliation completed and compliance discussed. - pt to continue present medications. Gastroesophageal reflux disease with esophagitis without hemorrhage - Med reconciliation completed and compliance discussed. - pt to continue present medications. DIAN (generalized anxiety disorder) - Med reconciliation completed and compliance discussed. - pt to continue present medications. Dyslipidemia - Med reconciliation completed and compliance discussed. - pt to continue present medications. Lipid Panel Results: Results for orders placed or performed in visit on 04/19/16 LIPID PANEL Result Value Ref Range HOURS FASTING PATIENT NOT FASTING hours Triglycerides 154 <200 mg/dL Cholesterol 204 (H) <200 mg/dL HDL Cholesterol 44 >39 mg/dL Cholesterol-HDL Ratio 4.6 LDL Cholesterol 129 0 - 129 mg/dL Results for orders placed or performed in visit on 04/30/23 LIPID PANEL WITH DIRECT LDL IF TG IS HIGH Result Value Ref Range Triglycerides 207 (H) <=174 mg/dL Cholesterol 223 (H) <200 mg/dL HDL Cholesterol 42 (L) >49 mg/dL Non-HDL Cholesterol 181 (H) <=159 mg/dL LDL Cholesterol 140 (H) <=129 mg/dL Follow Up: Return in 1 year (on 09/12/2024) for 12 month Subsequent Adult Wellness Visit. | For: 12 month Subsequent Adult Wellness Visit | Check-out note: 12 month Subsequent Adult Wellness Visit Would patient like to schedule next AWV visit? Yes Cathi Higgins, RN AD8 Dementia Screening Interview Person answering questions: patient Remember, "Yes, a change" indicates that there has been a change in the last several years caused by cognitive (thinking and memory) problems 1. Problems with judgement (eg: problems making decisions, bad financial decisions, problems with thinking). No (0) 2. Less interest in hobbies/activities. No (0) 3. Repeats the same things over and over (questions, stories, or statements). No (0) 4. Trouble learning how to use a tool, appliance, or gadget (eg: VCR, computer, microwave, remote control). No (0) 5. Forgets correct month or year. No (0) 6. Trouble handling complicated financial affairs (eg: balancing checkbook, income taxes, paying bills). No (0) 7. Trouble remembering appointments. No (0) 8. Daily problems with thinking and/or memory. No (0) TOTAL AD8: 0 - AD8 Dementia Screening Score The final score is a sum of the number items marked "Yes, A Change". 0 - 1: Normal cognition; 2 or greater: Cognitive impairments is likely to be present - further testing requiredUrinary Incontinence Plan of Care Documentation: (This education is for all patients over 65 regardless of symptoms) Current medications reconciled. Patient encouraged to: Practice kegal exercises Provide education materials Use the restroom every 2 hours throughout the day Limit caffeine, alcohol, spicy foods and acidic foods Keep a bladder diary Limit fluid intake 3-4 hours before bed Lose weight Prevent constipation Take fluid pills at a time when you can get to the bathroom quickly Control sugar better if diabetic Limit fluid intake to 60 oz. per day Wear support stockings (TEDs)if you have edema Cathi Higgins, ELLE 09/13/2023 documented in this encounter Miscellaneous Notes * Pt Handout (on AVS) - Cathi Higgins, RN - 09/13/2023 10:56 AM EDT [id number] Preventing Falls: How to Prepare and What to Do Falling is not something you want to think about. But it can make a big difference to plan ahead. If you're prepared, you'll know how to get help. And you'll be less likely to panic if you fall. Thismeans you'll be able to do what's needed to get help right away. How to prepare Have someone check on you daily, either in person or by phone. Keep a list of emergency numbers near the phone. Always have a way to call for help. Keep a cell phone with you at all times. Or talk with your healthcare provider about how to set up a home monitoring service. This involves wearing a small device around your neck or wrist. If you fall, you can press the button on the device. This alerts emergency responders. Talk with your healthcare provider about an exercise program that's right for you. Regular exercise may reduce the risk of falling and the risk for injury related to a fall. Have good lighting in your home. Don't use throw rugs, because they can raise your risk of tripping and falling. Add grab bars in the bathroom to help reduce the risk of falling. Small changes canmake your home safer. Talk with your healthcare provider about making your home safer. What to do if you fall Above all, try to stay calm: If you start to fall, try to relax your body. This will reduce the impact of the fall. After you fall, press your monitor button, or use your phone to call for help. Don't choe to get up. First, make sure you're not hurt. Roll onto your side, then crawl to a chair. Pull yourself up onto the chair slowly. Get checked if you struck your head, lost consciousness, were confused afterward, or have any other concerns for injury. Tell your healthcare provider that you fell. They can check you for injuries as needed, try to determine what made you fall, and help prevent you from falling again. A note to family and friends If you're with a loved one when they start to fall, don't try to stop the fall. Ease the person to the floor carefully, so neither of you gets hurt. Don't leave the person alone. And don't try to move them, especially if they may have hurt their head or neck. Check for injuries. If help is needed right away, call 911. Last Reviewed Date: 05/25/202219991739-0920 [employer]. All rights reserved. This information is not intended as a substitute for professional medical care. Always follow your healthcare professional's instructions. * Pt Handout (on AVS) - Cathi Higgins RN - 09/13/2023 10:56 AM EDT Images from the original note were not included. 50122 Exercises to Prevent Falls Certain types of exercises may help make you less likely to fall. Try the ones below or do other exercises that your healthcare provider suggests. Depending on your health, you may need to start slowly. Don't let that stop you. Even small amountsof exercise can help you. Talk with your healthcare provider before starting any exercise program. Improve balance Many types of exercise can help improve balance. Campos chi and yoga are good examples. Here's anotherone to try. You can do it anytime and almost anywhere. Stand next to a counter or solid support. Push yourself up onto your tiptoes. Hold for 5 seconds. If you start to lose your balance, hold on to the counter. Rest and repeat 5 times. Work up to holding for 20 to 30 seconds, if you can. Increase flexibility Being more flexible makes it easier for you to move around safely. Try exercises like the seatedhamstring stretch. o Sit in a chair and put one foot on a stool. o Straighten your leg and reach with both hands down either side of your leg. Reach as far down your leg as you can. o Hold for about 20 seconds. o Go back to the starting position. Then repeat 5 times. Switch legs. o o Build strength o Resistance exercises help build strength. You can do them without equipment. Or you can use weights, elastic bands, or special machines. One such exercise is called the biceps curl. You can hold a 1-pound weight or even a can of soup. Do this exercise at least 3 times a week. Strive for every day. Sit up straight in a chair. Keep your elbow close to your body and your wrist straight. Bend your arm, moving your hand up to your shoulder. Then slowly lower your arm. Repeat 5 times. Switch to the other arm. Build your staying power Aerobic exercises make your heart and lungs stronger so you can keep moving longer. Walking and swimming are 2 of the best types of exercises you can do. Using a stationary bike is great, too. Find an aerobic exercise that you enjoy. Start slowly and build up. Even 5 minutes is helpful. Aim for a goal of 30 minutes, at least 3 times a week. You don't have to do 30 minutes in 1 session. Break it up and walk a little throughout the day. Starting out safely and slowly Start easy. Slowly work up to doing more. Talk with your healthcare provider about the best exercises for you. Call senior centers or health clubs about exercise programs. If needed, have a family member watch you walk every so often to check your stability. Exercise with a friend. Choose an activity you both enjoy. Be sure to gently warm up and cool down. Drink fluids, such as water, to stay hydrated. If your provider recommended that you limit fluids, ask them how much is OK to drink while exercising. Consider campos chi or yoga to strengthen your balance. Try exercises that you can do anytime, anywhere. Here are 2 examples. Have someone with you whenyou first try these: o Practice walking by placing one foot right in front of the other. o Stand up and sit down 10 times. Repeat this throughout the day. Last Reviewed Date: 04/25/202219996399-7018 [employer]. All rights reserved. This information is not intended as a substitute for professional medical care. Always follow your healthcare professional's instructions. documented in this encounter Plan of Treatment Upcoming Encounters Date Type Department Care Team (Late st Contact Info) Description 11/30/2023 7:00 AM EDT Office Visit Sleep Disorders Ctr [facility] [address] [place] [id number] Edilma Brown CRNP [address] [place] [address] 12/18/2023 1:40 PM EDT Office Visit Family Practice [address] [place] [address] Jcarlos Laureano PA-C [address] [place] [place] [address] 12/21/2023 10:00 AM EDT Office Visit Allergy/Immunology [facility] [address] [place] [address] Michael Vieira MD [address] [facility] [place] [address] 12/24/2023 2:10 PM EDT Office Visit Dermatology [address], [place] [address] [place] [address] Amy Mckeon PA-C [address] [place] [address] 01/02/2024 3:15 PM EDT Office Visit Urology, [facility] [address] [facility] [place] [address] Salvador Mireles MD [address] [facility] [address] [facility] [place] [address] 09/18/2024 2:30 PM EDT Nurse Only Ancillary [address], [place] [address] [place] [address] [address] Nurse [facility] [address] [place] [address] Health Maintenance Due Date Last Done Comments Zoster Vaccines (2 of 3) 11/17/2013 09/22/2013 COVID-19 Vaccine ( season) 2023 05/10/2021, 08/25/2020, 07/28/2020 Depression Screening 09/12/2024 09/13/2023 DXA Scan 12/06/2024 12/06/2022, 11/23, 07/13/2020, Additional history exists DTaP,Tdap,and Td Vaccines (3 - Td or Tdap) 12/23/2025 12/24/2015, 05/08/2006 Hepatitis C Screening Completed 10/07/2010 Pneumococcal Vaccine: 65+ Years Completed 10/15/2015, 04/04/2010 Albumin/Creatinine Ratio Discontinued 09/27/2022, 10/2022 Influenza Vaccine (FLU shot) Completed 02/21/2023, 07/13/2022, 03/14/2021, Additional history exists VITAMIN D LEVEL ONCE IN A LIFETIME-USE SMARTSET# [id number] Completed 04/30/2023, 12/21/2021, 09/13/2020, Additional history exists [...] as of this encounter Visit Diagnoses Diagnosis Routine general medical examination at a health care facility- Primary Risk and functional assessment Screening for unspecified condition Vaginal atrophy Postmenopausal atrophic vaginitis Stress incontinence of urine Seasonal allergic rhinitis due to pollen Sacroiliitis, not elsewhere classified (HCC) Sacroiliitis, not elsewhere classified Recurrent UTI Urinary tract infection, site not specified Pure hypercholesterolemia Primary open-angle glaucoma, bilateral, mild stage LUIS (obstructive sleep apnea) Obstructive sleep apnea (adult) (pediatric) SIMS (nonalcoholic steatohepatitis) Other chronic nonalcoholic liver disease Morbid obesity (HCC) Morbid obesity Major depressive disorder with single episode, in full remission (HCC) High risk for fracture due to osteoporosis by DEXA scan Osteoporosis, unspecified Gastroesophageal reflux disease with esophagitis without hemorrhage DIAN (generalized anxiety disorder) Generalized anxiety disorder Dyslipidemia Other and unspecified hyperlipidemia documented in this encounter Care Teams Skirt Trimmer Relationship Specialty Start Date End Date Jcarlos Laureano PA-C [facility] [facility] [place] [id number] PCP - General Physician [facility] Intern 07/10/23 documented as of this encounter
--- OUTSIDE RECORDS SUMMARY | 2024-03-06 04:11 | External Medical Summary | Summary of Care ---
Author Name Unknown Organization [facility] Address [address] [facility] [place] [address] Phone [phone] Care Team Providers Care Domestic Technician Name Role Phone Jcarlos Laureano PA-C Primary Care Provide r Reason for Visit * Reason Onset Date Comments [facility]: Screening 09/21/2023 Encounter Details Date Type Department Care Team (Late st Contact Info) Description 09/21/2023 Telephone [facility], [place] [address] [facility] [place] [address] Region, Nurse [place] [address] [address] [facility] [place] [address] [facility]: Screening Allergies Active [...] as of this encounter (statuses as of 09/21/2023) Medications Medication Sig Dispensed Refills Start Date End Date Status nystatin-triamcinol one (MYCOLOG) 223764-6.1 UNIT/GM-% cream Apply to affected area two times per day for 1 week 15 g 2 02/06/2017 Active betamethasone valerate (VALISONE) 0.1 % OINT Apply topically to affected area 2 times a day. Apply to affected area twice daily as needed 15 g 1 01/28/2018 Active Nystatin 198355 UNIT/GM External Powder (Nystop)Indications :SIMS (nonalcoholic steatohepatitis) APPLY TO AFFECTED AREA(S) THREE TIMES A DAY 180 g 0 12/05/2021 Active Ipratropium-Albuter ol 0.5-2.5 (3) MG/3ML Inhalation Solution (Duoneb) Inhale 3 mL by mouth every 8 hours as needed. 0 04/24/2022 Active Clotrimazole-Betame thasone 1-0.05 % External Cream Apply topically to affected area 2 times a day. 0 Active Docusate Sodium 100 MG Oral Capsule (Colace) Take 1 Capsule by mouth daily as needed. 0 Active Delsym Cough/Chest Congest DM 5-100 MG/5ML Oral Liquid (Dextromethorphan-g uaiFENesin) Take by mouth. 0 Active Tamsulosin HCl 0.4 MG Oral Capsule (Flomax) TAKE ONE CAPSULE BY MOUTH EVERY MORNING 90 Capsule 3 12/18/2022 12/18/2023 Active Alendronate Sodium 70 MG Oral Tablet (Fosamax)Indication s:Age-related osteoporosis without current pathological fracture TAKE ONE TABLET BY MOUTH ONCE A WEEK WITH 8 OZ OF WATER 30 MINUTES BEFORE FIRST MEAL OF THE DAY. REMAIN UPRIGHT FOR 30 MINUTES AFTER TAKING TABLET 15 Tablet 3 12/15/2022 12/15/2023 Active DULoxetine HCl 60 MG Oral Capsule Delayed Release Particles (Cymbalta)Indicatio ns:HTN, goal below 150/90 TAKE ONE CAPSULE BY MOUTH EVERY DAY DO NOT CRUSH, CUT OR CHEW 90 Capsule 3 11/24/2022 11/24/2023 Active Latanoprost 0.005 % Ophthalmic Solution (Xalatan) INSTILL ONE DROP INTO EACH EYE AT BEDTIME 10 mL 3 11/23/2022 12/17/2023 Active Clobetasol Propionate 0.05 % External Cream (Temovate)Indicatio ns:Chronic vulvitis USE A PEA SIZE AMOUNT ON THE AFFECTED AREA ONCE WEEKLY, OR USE NEEDED TWICE DAILY, FOR NO MORE THAN TWO WEEKS 60 g 2 11/22/2022 11/22/2023 Active Estradiol 0.1 MG/GM Vaginal Cream (Estrace)Indication s:Vaginal atrophy Apply 1/2 g topically to affected area in the morning. 42.5 g 6 02/08/2023 Active Gabapentin 400 MG Oral Capsule (Neurontin)Indicati ons:Sacroiliitis, not elsewhere classified (HCC) Take 1 Capsule by mouth in the morning and 1 Capsule at noon and 1 Capsule before bedtime. 270 Capsule 3 02/19/2023 Active Apixaban 5 MG Oral Tablet (Eliquis)Indication s:HTN, goal below 150/90,Edema TAKE ONE TABLET BY MOUTH EVERY MORNING AND TAKE ONE TABLET BY MOUTH AT BEDTIME 200 Tablet 3 04/17/2023 Active Sulfamethoxazole-Tr imethoprim 400-80 MG Oral Tablet (Bactrim) Take 1 Tablet by mouth at bedtime. 90 Tablet 3 05/24/2023 Active Omeprazole 40 MG Oral Capsule Delayed Release (PriLOSEC)Indicatio ns:Gastroesophageal reflux disease with esophagitis without hemorrhage Take 1 Capsule by mouth in the morning. 90 Capsule 1 06/28/2023 Active Ozempic (2 MG/DOSE) 8 MG/3ML Subcutaneous Solution Pen-injector (Semaglutide (2 MG/DOSE))Indication s:Class 2 severe obesity due to excess calories with serious comorbidity and body mass index (BMI) of 36.0 to 36.9 in adult (HCC) Inject 2 mg under the skin once a week. 3 mL 2 08/21/2023 Active Folic Acid 1 MG Oral TabletIndications:M THFR mutation TAKE ONE TABLET BY MOUTH EVERY DAY 90 Tablet 3 08/27/2023 08/26/2024 Active Anoro Ellipta 62.5-25 MCG/ACT Inhalation Aerosol Powder Breath Activated (umeclidinium-vilan terol) inhale 1 puff by mouth daily 180 Each 1 08/28/2023 Active Albuterol Sulfate HFA 108 (90 Base) MCG/ACT Inhalation Aerosol Solution inhale 2 puffs by mouth every 6 hours as needed for shortness of breath or wheezing 54 g 1 08/28/2023 Active Lisinopril 2.5 MG Oral Tablet (Prinivil)Indicatio ns:Prolonged QT interval,Abnormal genetic test,HTN, goal below 140/90,Dyslipidemia , goal LDL below 100 Take 1 Tablet by mouth in the morning. 100 Tablet 2 08/31/2023 Active Metoprolol Succinate ER 25 MG Oral Tablet Extended Release 24 Hour (toPROL XL)Indications:Prol onged QT interval,Abnormal genetic test,HTN, goal below 140/90,Dyslipidemia , goal LDL below 100 Take 1 Tablet by mouth in the morning. 100 Tablet 3 08/31/2023 Active Rosuvastatin Calcium 5 MG Oral Tablet (Crestor)Indication s:Prolonged QT interval,Abnormal genetic test,HTN, goal below 140/90,Dyslipidemia , goal LDL below 100 Take 1 Tablet by mouth in the morning. 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 Increased risk for Inherited Arrhythmias. Please click [...] as of this encounter (statuses as of 09/21/2023) Resolved Problems Problem Noted Date Diagnosed Date [...] 03/13/2018 Overview: 02/14/18 While on vaction in [place] Facial laceration 02/21/2018 06/27/2021 Overview: 02/14/18 While on vaction in [place] Closed fracture of nasal bones 02/21/2018 06/27/2021 Overview: 02/14/18 While on vaction in [place] Fall on or from sidewalk curb 02/21/2018 03/13/2018 Overview: 02/14/18 While on vaction in [place] History of nonmelanoma skin cancer 06/12/2017 12/20/2017 Overview: BCC nasal bridge 12/02 Trochanteric bursitis of right hip 05/16/2017 12/20/2017 Hx of non anemic vitamin B12 deficiency 04/02/2017 12/20/2017 History of laminectomy 07/26/201612/20 HTN, goal below 150/90 12/24/201508/21 Bronchospasm, exercise-induced 10/07/2012 06/02/2016 Genetic Sleep Disorder Resea [facility] Other*[id number] 10/19/2011 01/20/2016 Other pulmonary embolism and infarction [...] as of this encounter (statuses as of 09/21/2023) Immunizations Name Administration Dates Next Due COVID-19 [...] Telephone Encounter - Brenda Schwartz LPN - 09/21/2023 12:45 PM EDT Missy Weems was referred as a potential candidate for enrollment for [facility]. A review of this chart was completed and: Missy does not meet criteria for enrollment into [facility]. Referral Source: Monthly Proactive Eligibility List Criteria for Ineligibility: Not Located in Service Area Referring care team was notified via : [employer] communication Patient is located in service area however was graduated from [employer] in 2022 and has been stable since. Re enrollment not needed at this time Brenda Schwartz LPN [facility] 09/21/2023,12:45 PM documented in this encounter Plan of Treatment Upcoming Encounters Date Type Department Care Team (Late st Contact Info) Description 11/30/2023 7:00 AM EDT Office Visit [facility] [address] [place] [phone] Edilma Brown CRNP [address] [place] [address] 12/18/2023 1:40 PM EDT Office Visit Family Practice [address] [place] [address] [place] [address] Jcarlos Laureano PA-C [address] [place] [address] 12/21/2023 10:00 AM EDT Office Visit Allergy/Immunology [facility] [address] [place] [address] Michael Vieira MD [address] [place] [address] 12/24/2023 2:10 PM EDT Office Visit Dermatology [address] [place] [address] [place] [address] Amy Mckeon PA-C [address] [place] [address] 01/02/2024 3:15 PM EDT Office Visit Urology, [facility] [address] [facility] [place] [id number] Salvador Mireles MD [address] [place] [address] [place] [id number] 09/18/2024 2:30 PM EDT Nurse Only Ancillary [address] [place] [address] [place] [address] [place], Nurse Annual Wellness [place] [address] [place] [address] Health Maintenance Due Date Last Done Comments Zoster Vaccines (2 of 3) 11/17/2013 09/22/2013 COVID-19 Vaccine (2022- season) 2023 05/10/2021, 08/25/2020, 07/28/2020 Depression Screening [...] D LEVEL ONCE IN A LIFETIME-USE SMARTSET# [id number] Completed 04/30/2023, 12/21/2021, 09/13/2020, Additional history exists [...] filedocumented as of this encounter Care Teams Domestic Technician Relationship Specialty Start Date End Date Jcarlos Laureano PA-C [address] [facility] [place] [address] PCP - General Physician Developmental Mathematics Instructor 07/10/23 documented as of this encounter
--- OUTSIDE RECORDS SUMMARY | 2024-03-06 04:11 | External Medical Summary | Summary of Care ---
Author Name Unknown Organization [facility] Address [address] [facility] [place] [address] Phone [phone] Care Team Providers Care Fire Regulator Name Role Phone Jcarlos Laureano PA-C Primary Care Provide r Encounter Details Date Type Department Care Team (Late st Contact Info) Description 09/20/2023 Population Health External Data Unspecified Department Allergies [...] as of this encounter (statuses as of 09/25/2023) Medications Medication Sig Dispensed Refills Start Date End Date Status nystatin-triamcinol one (MYCOLOG) 903547-0.1 UNIT/GM-% cream Apply to affected area two times per day for 1 week 15 g 2 02/06/2017 Active betamethasone valerate (VALISONE) 0.1 % OINT Apply topically to affected area 2 times a day. Apply to affected area twice daily as needed 15 g 1 01/28/2018 Active Nystatin 068326 UNIT/GM External Powder (Nystop)Indications :SIMS (nonalcoholic steatohepatitis) [...] CUT OR CHEW 90 Capsule 3 11/24/2022 12/27/2023 Active Latanoprost 0.005 % Ophthalmic Solution (Xalatan) [...] (BMI) of 36.0 to 36.9 in adult ([facility]) Inject 2 mg under the [...] as of this encounter (statuses as of 09/25/2023) Active Problems Problem Noted Date Diagnosed Date Impingement syndrome of left shoulder 09/05/2022 Sacroiliitis, not elsewhere classified Pure hypercholesterolemia 06/29/2022 Primary open-angle glaucoma, bilateral, mild sta ge 05/04/2022 Morbid obesity 05/04/2022 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 Increased risk for Inherited Arrhythmias. Please click [...] as of this encounter (statuses as of 09/25/2023) Resolved Problems Problem Noted Date Diagnosed Date [...] exercise-induced 10/07/2012 06/02/2016 Genetic Sleep Disorder Resea [facility] Other*[id number] 10/19/2011 01/20/2016 Other pulmonary embolism and infarction [...] as of this encounter (statuses as of 09/25/2023) Immunizations Name Administration Dates Next Due COVID-19 [...] AM EDT [facility] [address] [facility] [place] [phone] Edilma Brown CRNP [address] [facility] [place] [address] 12/18/2023 1:40 PM EDT Office Visit Family Practice [facility], [place] [address] [place] [address] Jcarlos Laureano PA-C [address] [place] [address] 12/21/2023 10:00 AM EDT Office Visit Allergy/Immunology [facility] [address] [place] [address] Michael Vieira MD [address] [facility] [place] [address] 12/24/2023 2:10 PM EDT Office Visit Dermatology [facility], [place] [address] [place] [address] Amy Mckeon PA-C [address] [place] [address] 01/02/2024 3:15 PM EDT Office Visit Urology, [facility] [address] [facility] [place] [address] Salvador Tubbs MD [address] [place] [address] [place] [address] 09/18/2024 2:30 PM EDT Nurse Only Ancillary [place] [address] [place] [address] [place], Nurse Annual Wellness [place] [address] [place] [address] Health Maintenance Due Date Last Done Comments [...] D LEVEL ONCE IN A LIFETIME-USE SMARTSET# [id number] Completed 04/30/2023, 12/21/2021, 09/13/2020, Additional history exists [...] filedocumented as of this encounter Care Teams Fire Regulator Relationship Specialty Start Date End Date Jcarlos Laureano PA-C [address] [place] [address] PCP - General Physician Herd Tester 07/10/23 documented as of this encounter
--- OUTSIDE RECORDS SUMMARY | 2024-03-06 04:11 | External Medical Summary | Summary of Care ---
Author Name Unknown Organization [facility] Address [address] [facility] [place] [address] Phone [phone] Care Team Providers Care Assembly Stock Supervisor Name Role Phone Jcarlos Laureano PA-C Primary Care Provide r Encounter Details Date Type Department Care Team (Late st Contact Info) Description 09/21/2023 Population Health External Data Unspecified Department Allergies [...] Date End Date Status nystatin-triamcinol one (MYCOLOG) 884820-7.1 UNIT/GM-% cream Apply to affected area two times per day for 1 week 15 g 2 02/06/2017 Active betamethasone valerate (VALISONE) 0.1 % OINT Apply topically to affected area 2 times a day. Apply to affected area twice daily as needed 15 g 1 01/28/2018 Active Nystatin 441702 UNIT/GM External Powder (Nystop)Indications :SIMS (nonalcoholic steatohepatitis) [...] 36.0 to 36.9 in adult ([facility]) Inject 2 mg under the skin [...] gene variant (c.1081 C>T, p.(Q361*)) detected via [employer]. Increased risk for Inherited Arrhythmias. Please click [...] 10/07/2012 06/02/2016 Genetic Sleep Disorder Resea [facility] Other*[id number] 10/19/2011 01/20/2016 Other pulmonary embolism and infarction [...] AM EDT Office Visit [facility] Disorders [facility]tr [facility] [address] [facility] [place] [phone] Edilma Brown CRNP [address] [facility] [place] [address] 12/18/2023 1:40 PM EDT Office Visit Family Practice [facility], [place] [address] [facility] [place] [address] Jcarlos Laureano PA-C [address] [place] [address] 12/21/2023 10:00 AM EDT Office Visit Allergy/Immunology [facility] [address] [place] [address] Michael Vieira MD [address] [facility] [place] [address] 12/24/2023 2:10 PM EDT Office Visit Dermatology [facility], [place] [address] [place] [address] Amy Mckeon PA-C [address] [place] [address] 01/02/2024 3:15 PM EDT Office Visit Urology, [facility] [address] [facility] [place] [address] Salvador Tubbs MD [address] [place] [address] [place] [address] 09/18/2024 2:30 PM EDT Nurse Only Ancillary [place] [address] [place] [address] [place], Nurse Annual Wellness [place] [address] [place] [address] [address] Health Maintenance Due Date Last Done Comments [...] D LEVEL ONCE IN A LIFETIME-USE SMARTSET# [id number] Completed 04/30/2023, 12/21/2021, 09/13/2020, Additional history exists [...] filedocumented as of this encounter Care Teams Assembly Stock Supervisor Relationship Specialty Start Date End Date Jcarlos Laureano PA-C [address] [place] [address] [address] PCP - General Physician Parts Expediter 07/10/23 documented as of this encounter
[2024-03-06] MEDS: REMDESIVIR 200 MG in SODIUM CHLORIDE 0.9% 210 ML IV STA (04:55)
[2024-03-06 05:11] LABS: Albumin Level 4.3 gm/dl (3.4-5.0); Bilirubin Direct 0.1 mg/dl (0-0.2); Bilirubin,Total 0.3 mg/dl (0.2-1.0); Total Protein 6.5 gm/dl (6.0-8.3)
[2024-03-06] MEDS: PANTOprazole 40 MG TAB PO SCH (06:23)
--- NOTE | 2024-03-06 07:39 | XRay Report ---
XR chest 1V portable HISTORY: 78 years-old Female sob, covid acute shortness of breath COMPARISON: 08/21/2023 TECHNIQUE: AP view of the chest FINDINGS: Cardiomediastinal and hilar silhouettes are within normal limits. Atherosclerosis of aorta. Mild textile examiner natalya interstitial coarsening. No pneumothorax, pleural effusion or airspace consolidation. Linear meta llic density structure overlies the right shoulder, likely external to the patient. Right-sided rotat or cuff calcific tendinosis. Spondylotic spurring of the spine. IMPRESSION: No acute process of the chest. ACT 112: Negative or not required by law. The above report was generated using voice recognition software. It may contain grammatical, syntax o r spelling errors. Electronically signed by: Ethan Celeste M.D. 03/06/2024 7:38 AM
[2024-03-06] MEDS: FOLIC ACID 1 MG TAB PO SCH (08:03)
[2024-03-06] MEDS: DULoxetine HCL 60 MG CAP PO SCH (08:03)
[2024-03-06] MEDS: APIXABAN 5 MG TABLET PO SCH (08:03)
[2024-03-06] MEDS: lisinopril 2.5 MG TAB PO SCH (08:04)
[2024-03-06] MEDS: METOPROLOL SUCC 25MG EXT REL TAB PO SCH (08:04)
[2024-03-06] MEDS: GABAPENTIN 400 MG CAP PO SCH (08:04)
[2024-03-06] MEDS: NYSTATIN POWDER 15GM BTL EXT SCH (08:05)
[2024-03-06] MEDS: dexAMETHasone 6 MG in SYRINGE 0 ML IV SCH (08:05)
[2024-03-06] MEDS: ROSUVASTATIN CALCIUM 5 MG TAB PO SCH (08:05)
[2024-03-06] MEDS: UMECLIDINIUM/VILANTEROL 62.5/25MCG 7 PUFFS/INHALER INH SCH (08:06)
[2024-03-06] MEDS: ACETAMINOPHEN 325 MG TAB PO PRN (08:27)
[2024-03-06] MEDS: guaiFENesin 600 MG TABCR PO SCH (08:27)
--- NOTE | 2024-03-06 13:27 | Pulmonary Consultation ---
Date of Consultation March 06, 2024 Assessment & Plan (1) Pulmonary fibrosis: (2) Restrictive lung disease: (3) Abnormal chest CT: (4) Allergic rhinitis with postnasal drip: (5) COVID-19: Plan PFT 10/10/2022 personally reviewed:Mild restrictive lung dysfunction, normal DLCO, no obstruction, insignificant bronchodilator response (Increased FVC by 430 mL, increased FEV1 by 150 mL, increased TLC 60--> 74%, increased DLCO 62--> 85%, decrease in weight by 10 pounds compared to 06/15) FVC 1.9 L 87%, FEV1 1.49 L 88%, FEV1/FVC 75%, ERV 37%, RV 62%, TLC 74%, RV/TLC 86%, DLCO 85% 2D echo 06/09/2022: EF 60-65%, mild concentric LVH, normal RV size and function -- Shortness of breath Multifactorial Did test positive for COVID-19 03/05/2024 CRP 2.85, BNP 45 -- Restrictive lung disease TLC 60% --> 74, DLCO 62% --> 85% Secondary to BMI of 36 as well as post-COVID related fibrosis Continue with incentive spirometry -- 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 I do not think she needs autoimmune work-up --LUIS Polysomnography 06/14/2022: AHI 8.9 with RDI 9.1, supine AHI 12. REM AHI 35.70, minimum O2 saturation 76%, elevated patient radicular movements Continue with CPAP nightly and as needed shortness of breath -- Ex-smoker Approximately [id number] smoking history Quit at the age of 47 Encouraged to continue abstinence from smoking Patient does not qualify for screening CAT scans --Allergy rhinitis postnasal drip Will give levocetirizine to be taken nightly 2-3 days and then as needed Gargling with lukewarm water after adding a pinch of salt in it would also be beneficial --History of DVT Diagnosed 2013 s/p anticoagulation and IVC filter placed On apixaban right now --Severe COVID-19 pneumonia Diagnosed February 2022, required hospitalization Got DEXA ARDS protocol for total of 10 days Did not need intubation Plan: Chest x-ray at the time of presentation does not show any significant change from before. No clear lung infiltrate Patient does not seem to be having any desaturations I think it is reasonable to discontinue remdesivir. Okay to continue with dexamethasone till the patient is in the hospital. I do not think she will need to complete the full course of dexamethasone. Continue with her Anoro inhaler Mucinex has been added to the patient's regimen. Along with flutter valve Continue with incentive spirometer Case was discussed with primary team Please note the above document was generated using voice recognition software. It may contain grammatical, syntax or spelling errors.Any formal questions or concerns about the content, text or information contained within the body of this dictation should be directly addressed to the provider for clarification. History of Present Illness Attending Physician: Mary Ann Mariscal MD History of Present Illness 78-year-old female presents to the hospital with complaints of cough and worsening shortness of breath Past medical history: Hypertension, dyslipidemia, PE s/p IVC filter placement, anxiety/mood disorder, severe COVID-19 pneumonia diagnosed February 2022 Patient was last seen by me in the office on 08/28/2023 Pulmonary consulted for pneumonia At the time of examination patient was saturating 94-95% on room air She was not in any respiratory distress She did complain of cough which has been bothering her for a while. Does complain of chest congestion and difficulty bringing up the phlegm. No hemoptysis Denies any chest pain. Has been having subjective fever. Denies any dysuria or diarrhea Is compliant with her Anoro on a daily basis No dysuria, no diarrhea No hematuria, no hematochezia, no epistaxis Social history: Approximately [id number] smoking history, quit at the age of 47. 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 No personal or family history of asthma Allergies Allergy/AdvReac Type Severity Reaction Status Date / Time naproxen Allergy Severe SOB, HIVES Verified 03/05/24 23:42 WITH ALEVE ibuprofen Allergy Mild HIVES Verified 03/05/24 23:42 morphine Allergy Mild itching Verified 03/05/24 23:42 levofloxacin Allergy Unknown Unknown Verified 03/05/24 23:42 Penicillins Allergy Unknown occured as Verified 03/05/24 23:42 a child, severe itching prochlorperazine Allergy Unknown "eyes Verified 03/05/24 23:42 rolled back in head", muscle twitching latex Allergy blisters Verified 03/05/24 23:42 nitrofurantoin AdvReac Intermediate Nausea/vomi Verified 03/05/24 23:42 ting Home Medications Medication Instructions Recorded Confirmed Type amoxicillin 500 mg capsule 2,000 mg PO DIRECTED 03/20/22 03/05/24 History betamethasone valerate 0.1 % 1 applic topical BID PRN FLARE UPS 03/20/22 03/06/24 History topical ointment diclofenac sodium 1 % topical gel 1 ea topical BID PRN Pain 03/20/22 03/05/24 History duloxetine 60 mg capsule,delayed 60 mg PO DAILY 03/20/22 03/05/24 History release estradiol 0.01% (0.1 mg/gram) 1 applic vaginal Q2D 03/20/22 03/05/24 History vaginal cream folic acid 1 mg tablet 1 mg PO DAILY 03/20/22 03/05/24 History metoprolol succinate 25 mg 25 mg PO QAM 03/20/22 03/05/24 History tablet,extended release 24 hr nystatin 100,000 unit/gram topical 1 applic topical BID 03/20/22 03/05/24 History powder (Nystop) apixaban 5 mg tablet (Eliquis) 5 mg PO BID #60 tabs 04/14/22 03/05/24 Rx lisinopril 2.5 mg tablet 2.5 mg PO QAM #30 tabs 04/14/22 03/05/24 Rx nebulizer accessories #1 ea 05/01/22 08/23/23 Rx rosuvastatin 5 mg tablet 5 mg PO DAILY 07/03/22 03/06/24 History latanoprost 0.005 % eye drops 1 drp OPB QPM 01/25/23 03/05/24 History omeprazole 40 mg capsule,delayed 40 mg PO DAILYBB 01/25/23 03/06/24 History release alendronate 70 mg tablet (Fosamax) 70 mg PO WK 08/23/23 03/05/24 History semaglutide 2 mg/dose (8 mg/3 mL) 2 mg subcut .weekly 08/23/23 03/06/24 History subcutaneous pen injector (Ozempic) albuterol sulfate 90 mcg/actuation 2 puff inhalation Q6H PRN 08/28/23 03/05/24 Rx aerosol inhaler Shortness Of Breath Or Wheezing #3 Inhalers umeclidinium 62.5 mcg-vilanterol 1 inh inhalation DAILY #180 ea 08/28/23 03/06/24 Rx 25 mcg/actuation powdr for inhalation (Anoro Ellipta) gabapentin 400 mg capsule 400 mg PO TID 03/05/24 03/05/24 History nystatin-triamcinolone 100,000 1 applic topical BID PRN Skin 03/06/24 03/06/24 History unit/g-0.1 % topical cream Irritation Patient History Medical History Oral candidiasis Acute respiratory failure with hypoxia Pneumonia due to COVID-19 virus Bronchitis COVID-19 Sleep apnea "mild" no device History of skin cancer removed Diverticular disease Anemia Hypertension Obesity Hx pulmonary embolism 2012; AC X ONE MONTHS History of kidney stones History of DVT of lower extremity 2012, WAS ON BLOOD THINNERS X ONE MONTH; unk etiology Hiatal hernia GERD (gastroesophageal reflux disease) CONTROLLED Osteoarthritis Surgical History History of left cataract surgery History of lumpectomy x 2 (benign) History of appendectomy History of tonsillectomy History of nasal surgery History of colonoscopy X 2 History of esophagogastroduodenoscopy (EGD) X 2 History of total knee replacement RIGHT Siri filter in place PLACED 2012 History of lumbar spinal fusion History of hysterectomy History of cholecystectomy Family History Father Hypertension Other No family history of adverse response to anesthesia Social History Smoking Status: Former smoker Cigarettes Per Day: HX OF 1 PACK PER WEEK, QUIT 25 YEARS AGO; Second Hand Exposure: No; Do You Dip or Chew Tobacco: No; Hx Alcohol Use: No Hx Substance Use: No Preferred Language: Uzbek Communication Ability: Effective Veterans Service Representative Required: No Beliefs That Will Affect Care: None Current Living Situation: Alone Feels Safe at Home: Yes Safety Concerns: Feels Safe At This Time Assistive Devices: Glasses Assistive Devices Comment: glasses with pt Review of Systems 2 Review of Systems: All systems reviewed & are unremarkable except as noted in HPI & below Physical Exam 2 Physical Exam: Constitutional: No acute distress HEENT: EOMI, PERRLA Respiratory system: Decreased air entry bilaterally, no wheeze, no rhonchi, mild crackles bilateral lower lobe CVS: S1-S2 positive, no murmurs or gallops Abdomen: Soft, nontender, nondistended, positive bowel sounds x4 Extremities: +2 pulses bilaterally radialis/ dorsalis pedis, no cyanosis, no edema Neuro: Awake alert oriented x3 Psych: Normal mood and affect G/U: No Cabezas Skin: no rashes, warm and dry Lymphatic: no cervical or axillary lymphadenopathy Results & Data Results & Data Vital Signs (Past 12 Hours) Vital Signs Temp Pulse Pulse Resp Resp BP BP 03/06/24 07:09 80 03/06/24 06:09 84 21 03/06/24 06:03 82 03/06/24 06:00 115/73 03/06/24 05:57 86 21 03/06/24 05:03 79 22 03/06/24 04:25 36.7 C 87 16 141/76 H 03/06/24 04:25 82 16 130/77 03/06/24 04:09 87 22 03/06/24 03:57 84 23 03/06/24 03:57 141/76 H 03/06/24 03:00 86 22 03/06/24 02:00 85 15 03/06/24 01:03 88 18 03/06/24 01:00 150/77 H 03/06/24 01:00 150/77 H 03/06/24 00:57 84 24 03/06/24 00:04 176/92 H 03/06/24 00:04 176/92 H 03/06/24 00:03 88 18 03/06/24 00:01 202/125 H 03/06/24 00:00 89 14 03/05/24 23:54 03/05/24 23:53 182/90 H 03/05/24 23:53 182/90 H 03/05/24 23:53 182/90 H 03/05/24 23:14 24 03/05/24 22:39 90 21 03/05/24 22:15 87 8 L 03/05/24 22:14 165/93 H 03/05/24 22:14 165/93 H 03/05/24 22:14 165/93 H 03/05/24 22:00 85 20 165/93 H 03/05/24 19:52 87 20 161/96 H Pulse Ox Pulse Ox O2 Del Method 03/06/24 07:09 03/06/24 06:09 93 03/06/24 06:03 03/06/24 06:00 03/06/24 05:57 93 03/06/24 05:03 94 03/06/24 04:25 97 Room Air 03/06/24 04:25 97 Room Air 03/06/24 04:09 92 03/06/24 03:57 93 03/06/24 03:57 03/06/24 03:00 91 03/06/24 02:00 95 03/06/24 01:03 92 03/06/24 01:00 03/06/24 01:00 03/06/24 00:57 93 03/06/24 00:04 03/06/24 00:04 03/06/24 00:03 94 03/06/24 00:01 03/06/24 00:00 94 03/05/24 23:54 93 03/05/24 23:53 03/05/24 23:53 03/05/24 23:53 03/05/24 23:14 93 Room Air 03/05/24 22:39 92 03/05/24 22:15 95 03/05/24 22:14 03/05/24 22:14 03/05/24 22:14 03/05/24 22:00 93 Room Air 03/05/24 19:52 97 Room Air Laboratory Results 03/05/24 20:00 03/05/24 20:00 PG Care Time/CCT Total # of Minutes Spent Total Time Spent with Patient: Total time spent is greater than 50% in coordination of care (as documented) at patient's floor/unit and/or counseling patient: [place] [address] INT INP/OBS CARE 3/75MIN Patient Type New Diagnoses Pulmonary fibrosis J84.10 Restrictive lung disease J98.[address] R93.89 Allergic rhinitis with postnasal drip J30.9; R09.82 COVID-19 U07.1
--- NOTE | 2024-03-06 14:05 | Communication Note ---
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
--- NOTE | 2024-03-06 14:30 | Electrocardiogram Report ---
Test Reason : Blood Pressure : */* mmHG Vent. Rate : 83 BPM Atrial Rate : 83 BPM P-R Int : 168 ms QRS Dur : 88 ms QT Int : 406 ms P-R-T Axes : 54 -45 48 degrees QTcB Int : 477 ms Normal sinus rhythm Possible Left atrial enlargement Left anterior fascicular block Abnormal ECG When compared with ECG of 20-Mar-2022 16:36, No significant change was found Confirmed by Kolton Alonzo ([id number]) on 03/06/2024 2:29:37 PM Referred By: REFERRED SELF Confirmed By: Kolton Alonzo
[2024-03-06] MEDS: lisinopril 5 MG TAB PO ONE (15:36)
[2024-03-06] MEDS: LABETALOL HCL IV 5 MG/ML 20ML IV PRN (21:02)
[2024-03-06] MEDS: LATANOPROST 0.005% OP SOLN 2.5 ML BTL OPB SCH (22:24)
[2024-03-06] MEDS: LORazepam 0.5 MG TAB PO STA (22:25)
[2024-03-07 07:05] LABS: C Reactive Protein 1.98 mg/dl (0-0.5)
--- NOTE | 2024-03-07 08:27 | Pulmonology Progress Note ---
Date of Service March 07, 2024 Assessment & Plan (1) Pulmonary fibrosis: (2) Restrictive lung disease: (3) Abnormal chest CT: (4) Allergic rhinitis with postnasal drip: (5) COVID-19: Plan PFT 10/10/2022 personally reviewed:Mild restrictive lung dysfunction, normal DLCO, no obstruction, insignificant bronchodilator response (Increased FVC by 430 mL, increased FEV1 by 150 mL, increased TLC 60--> 74%, increased DLCO 62--> 85%, decrease in weight by 10 pounds compared to 06/15) FVC 1.9 L 87%, FEV1 1.49 L 88%, FEV1/FVC 75%, ERV 37%, RV 62%, TLC 74%, RV/TLC 86%, DLCO 85% 2D echo 06/09/2022: EF 60-65%, mild concentric LVH, normal RV size and function -- Shortness of breath Multifactorial Did test positive for COVID-19 03/05/2024 CRP 2.85, BNP 45 -- Restrictive lung disease TLC 60% --> 74, DLCO 62% --> 85% Secondary to BMI of 36 as well as post-COVID related fibrosis Continue with incentive spirometry -- 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 I do not think she needs autoimmune work-up --LUIS Polysomnography 06/14/2022: AHI 8.9 with RDI 9.1, supine AHI 12. REM AHI 35.70, minimum O2 saturation 76%, elevated patient radicular movements Continue with CPAP nightly and as needed shortness of breath -- Ex-smoker Approximately [id number] smoking history Quit at the age of 47 Encouraged to continue abstinence from smoking Patient does not qualify for screening CAT scans --Allergy rhinitis postnasal drip Will give levocetirizine to be taken nightly 2-3 days and then as needed Gargling with lukewarm water after adding a pinch of salt in it would also be beneficial --History of DVT Diagnosed 2013 s/p anticoagulation and IVC filter placed On apixaban right now --Severe COVID-19 pneumonia Diagnosed February 2022, required hospitalization Got DEXA ARDS protocol for total of 10 days Did not need intubation Plan: Continue with dexamethasone for total of 5 days can continue 10 days if the patient still has lingering symptoms Continue with her Anoro inhaler Continue with Mucinex and flutter valve Continue with incentive spirometer Case was discussed with primary team No further recommendation from pulmonary perspective, will sign off Please call directly with any questions Please note the above document was generated using voice recognition software. It may contain grammatical, syntax or spelling errors.Any formal questions or concerns about the content, text or information contained within the body of this dictation should be directly addressed to the provider for clarification. Admission and Anticipated Discharge Date Admission Date: March 06, 2024 Subjective Patient seen and examined at bedside. No acute distress, no adverse events overnight She was saturating 95 to 96% on room air Still complaining of cough. Denies any hemoptysis No chest pain No headache or blurry vision Has been afebrile Review of Systems 2 Review of Systems: All systems reviewed & are unremarkable except as noted in Subjective Physical Exam 2 Physical Exam: Constitutional: No acute distress HEENT: EOMI, PERRLA Respiratory system: Decreased air entry bilaterally, no wheeze, no rhonchi, mild crackles bilateral lower lobe CVS: S1-S2 positive, no murmurs or gallops Abdomen: Soft, nontender, nondistended, positive bowel sounds x4 Extremities: +2 pulses bilaterally radialis/ dorsalis pedis, no cyanosis, no edema Neuro: Awake alert oriented x3 Psych: Normal mood and affect G/U: No Cabezas Skin: no rashes, warm and dry Lymphatic: no cervical or axillary lymphadenopathy Results & Data Results & Data Vital Signs (Past 12 Hours) Vital Signs Temp Pulse Pulse Resp BP BP Pulse Ox 03/07/24 08:14 37.1 C 78 20 129/67 96 03/07/24 07:21 73 03/07/24 02:53 36.6 C 78 18 123/70 96 03/06/24 23:47 80 03/06/24 23:28 03/06/24 22:29 36.7 C 80 17 155/78 H 97 03/06/24 22:26 80 155/78 H 03/06/24 21:02 178/96 H O2 Del Method 03/07/24 08:14 Room Air 03/07/24 07:21 03/07/24 02:53 Room Air 03/06/24 23:47 03/06/24 23:28 Room Air 03/06/24 22:29 Room Air 03/06/24 22:26 03/06/24 21:02 Laboratory Results 03/05/24 20:00 03/05/24 20:00 PG Care Time/CCT Total # of Minutes Spent Total Time Spent with Patient: Total time spent is greater than 50% in coordination of care (as documented) at patient's floor/unit and/or counseling patient: Coding Level of Care Code 07592 SUB INP/OBS CARE 2/35MIN Diagnoses Pulmonary fibrosis J84.10 Restrictive lung disease J98.[address] R93.89 Allergic rhinitis with postnasal drip J30.9; R09.82 COVID-19 U07.1
[2024-03-07] MEDS: lisinopril 5 MG TAB PO SCH (09:04)
[2024-03-07 10:01] LABS: BUN Creatinine Ratio 28.1 (10-20); Calcium 9.1 mg/dl (8.6-10.3); Creatinine Clr Calc Pharmacy 63.5 ml/min; Est GFR (African American) 99.1 ml/min; Est GFR (Non-African American) 85.5 ml/min; Potassium 3.6 mmol/L (3.5-5.1)
[2024-03-07] MEDS ORDERED: COUGH DROP (SUGAR FREE) LOZ 24 LOZ/1 BOX BUCCAL PRN (11:42)
[2024-03-07] MEDS ORDERED: REMDESIVIR 100 MG in SODIUM CHLORIDE 0.9% 230 ML IV SCH (12:00)
[2024-03-07] MEDS: COUGH DROP (SUGAR FREE) LOZ 24 LOZ/1 BOX BUCCAL STA (12:48)
--- NOTE | 2024-03-07 13:58 | Hospitalist Progress Note ---
Date of Service March 07, 2024 Assessment & Plan (1) Generalized weakness: Plan: Ms. Weems is a 78-year-old female with past medical history significant for hyperlipidemia, obstructive sleep apnea, history of MTHFR deficiency, history of DVT and PE in 2010 as per patient, status post IVC filter, morbid obesity, [place], GERD, history of recurrent UTI, stress incontinence of urine, osteoarthritis, benign paroxysmal positional vertigo, primary open-angle glaucoma bilateral mild stage, generalized anxiety disorder, depression, medical marijuana use, admitted on 02/03 for COVID infection and weakness. Patient feeling better with course of steroids. Patient overall improved. 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 Discontinue remdesivir Continue dexamethasone for 5 days Continue with mucinex Continue IS #Allergic rhinitis Levacetrizine for 2-3 days, then prn #Generalized weakness patient feeling improved, however, lives alone PT/OT ordered #COPD Continue home inhalers and nebs as needed #History of DVT and PE #Status post IVC filter On Eliquis #Obstructive sleep apnea CPAP nightly #Hyperlipidemia On statin #Hypertension On lisinopril and metoprolol succinate Will monitor #GERD Omeprazole DVT prophylaxis On Eliquis Disposition Med/telemetry Full code Admission and Anticipated Discharge Date Admission Date: March 06, 2024 Subjective NAEO Reports feeling better overall, reports feeling still moderately weak and will consider PT Physical Exam Constitutional: WD/WN, vitals as above Respiratory: normal respiratory effort, lungs clear to auscultation Cardiovascular: RRR, no murmur, no edema Gastrointestinal (Abdomen): normal bowel sounds, soft, nontender, no hepatosplenomegaly Musculoskeletal: no cyanosis or clubbing, extremities motor strength 5/5 Results & Data Results & Data Vital Signs (Past 12 Hours) Vital Signs Temp Pulse Pulse Resp BP Pulse Ox O2 Del Method 03/07/24 12:04 37.2 C 75 18 139/75 98 Room Air 03/07/24 11:04 Room Air 03/07/24 08:14 37.1 C 78 20 129/67 96 Room Air 03/07/24 07:21 73 03/07/24 02:53 36.6 C 78 18 123/70 96 Room Air Laboratory Results BMP 03/07/24 06:14 Sodium 143 Potassium 3.6 Chloride 106 Carbon Dioxide 25 BUN 18 Creatinine 0.64 Glucose 112 H Calcium 9.1 Liver Function 03/07/24 Range/Units 06:14 AST 18 (13-39) U/L ALT 16 (7-52) U/L Medications Administered Home Medications Medication Instructions Recorded Confirmed Last Taken amoxicillin 500 mg capsule 2,000 mg PO DIRECTED 03/20/22 03/05/24 Unknown betamethasone valerate 0.1 % 1 applic topical BID PRN FLARE UPS 03/20/22 03/06/24 Unknown topical ointment diclofenac sodium 1 % topical gel 1 ea topical BID PRN Pain 03/20/22 03/05/24 Unknown duloxetine 60 mg capsule,delayed 60 mg PO DAILY 03/20/22 03/05/24 Unknown release estradiol 0.01% (0.1 mg/gram) 1 applic vaginal Q2D 03/20/22 03/05/24 Unknown vaginal cream folic acid 1 mg tablet 1 mg PO DAILY 03/20/22 03/05/24 Unknown metoprolol succinate 25 mg 25 mg PO QAM 03/20/22 03/05/24 Unknown tablet,extended release 24 hr nystatin 100,000 unit/gram topical 1 applic topical BID 03/20/22 03/05/24 Unknown powder (Nystop) apixaban 5 mg tablet (Eliquis) 5 mg PO BID #60 tabs 04/14/22 03/05/24 Unknown lisinopril 2.5 mg tablet 2.5 mg PO QAM #30 tabs 04/14/22 03/05/24 Unknown nebulizer accessories #1 ea 05/01/22 08/23/23 Unknown rosuvastatin 5 mg tablet 5 mg PO DAILY 07/03/22 03/06/24 Unknown latanoprost 0.005 % eye drops 1 drp OPB QPM 01/25/23 03/05/24 Unknown omeprazole 40 mg capsule,delayed 40 mg PO DAILYBB 01/25/23 03/06/24 Unknown release alendronate 70 mg tablet (Fosamax) 70 mg PO WK 08/23/23 03/05/24 Unknown semaglutide 2 mg/dose (8 mg/3 mL) 2 mg subcut .weekly 08/23/23 03/06/24 Unknown subcutaneous pen injector (Ozempic) albuterol sulfate 90 mcg/actuation 2 puff inhalation Q6H PRN 08/28/23 03/05/24 Unknown aerosol inhaler Shortness Of Breath Or Wheezing #3 Inhalers umeclidinium 62.5 mcg-vilanterol 1 inh inhalation DAILY #180 ea 08/28/23 03/06/24 Unknown 25 mcg/actuation powdr for inhalation (Anoro Ellipta) gabapentin 400 mg capsule 400 mg PO TID 03/05/24 03/05/24 Unknown nystatin-triamcinolone 100,000 1 applic topical BID PRN Skin 03/06/24 03/06/24 Unknown unit/g-0.1 % topical cream Irritation Active Medications Generic Name Dose Route Start Last Admin Trade Name Freq PRN Reason Stop Dose Admin Acetaminophen 650 mg 03/06/24 03:20 03/06/24 08:27 Acetaminophen 325 Mg Tab PO 04/05/24 03:19 650 mg Q4H PRN Administration Pain or Fever Apixaban 5 mg 03/06/24 09:00 03/07/24 08:18 Apixaban 5 Mg Tablet PO 04/05/24 08:59 5 mg BID DORY Administration Duloxetine HCl 60 mg 03/06/24 09:00 03/07/24 08:18 Duloxetine Hcl 60 Mg Cap PO 04/05/24 08:59 60 mg DAILY DORY Administration Folic Acid 1 mg 03/06/24 09:00 03/07/24 08:19 Folic Acid 1 Mg Tab PO 04/05/24 08:59 1 mg DAILY DORY Administration Gabapentin 400 mg 03/06/24 09:00 03/07/24 08:19 Gabapentin 400 Mg Cap PO 04/05/24 08:59 400 mg TID DORY Administration Guaifenesin 1,200 mg 03/06/24 09:00 03/07/24 08:20 Guaifenesin 600 Mg Tabcr PO 04/05/24 08:59 1,200 mg Q12 DORY Administration Dexamethasone 6 mg/ Syringe 1.5 mls @ 1 mls/min 03/06/24 09:00 03/07/24 09:04 IV 03/16/24 08:59 1 mls/min Q24H DORY Administration Labetalol HCl 10 mg 03/06/24 19:48 03/06/24 21:02 Labetalol Hcl Iv 5 Mg/Ml 20ml IV 04/05/24 19:47 10 mg Q4H PRN Administration Hypertension Protocol Latanoprost 1 drops 03/06/24 21:00 03/06/24 22:24 Latanoprost 0.005% Op Soln 2.5 Ml Btl OPB 04/05/24 20:59 1 drops QPM DORY Administration Lisinopril 5 mg 03/07/24 09:00 03/07/24 09:04 Lisinopril 5 Mg Tab PO 04/06/24 08:59 5 mg QAM DORY Administration Metoprolol Succinate 25 mg 03/06/24 09:00 03/07/24 08:22 Metoprolol Succ 25mg Ext Rel Tab PO 04/05/24 08:59 25 mg QAM DORY Administration Miscellaneous 1 each 03/06/24 08:00 03/07/24 08:17 Estradiol 0.01 % Cream - Order Awaiting Action N/A 04/05/24 07:59 Not Given QS DORY Nystatin 1 appln 03/06/24 09:00 03/07/24 08:23 Nystatin Powder 15gm Btl EXT 04/05/24 08:59 1 appln BID DORY Administration Pantoprazole Sodium 40 mg 03/06/24 06:30 03/07/24 05:51 Pantoprazole 40 Mg Tab PO 04/05/24 06:29 40 mg DAILYBB DORY Administration Rosuvastatin Calcium 5 mg 03/06/24 09:00 03/07/24 08:23 Rosuvastatin Calcium 5 Mg Tab PO 04/05/24 08:59 5 mg DAILY DORY Administration Umeclidinium/Vilanterol 1 puffs 03/06/24 09:00 03/07/24 08:23 Umeclidinium/Vilanterol 62.5/25mcg 7 Puffs/Inhaler INH 04/05/24 08:59 1 puffs DAILY DORY Administration
[2024-03-07] MEDS: LORazepam 0.5 MG TAB PO PRN (21:27)
[2024-03-08 07:27] VITALS: RESP 18
[2024-03-08 08:05] LABS: Alanine Aminotransferase 26 U/L (7-52); Aspartate Aminotransferase 28 U/L (13-39)
[2024-03-08 11:11] VITALS: TEMP 97.9
[2024-03-08 12:23] VITALS: BP 183/95
--- NOTE | 2024-03-08 12:50 | Discharge Summary ---
Discharge Summary Date of Service March 08, 2024 Principal Dx & Hospital Course #1 = Principal Diagnosis (1) Generalized weakness: Ms. Weems is a 78-year-old female with past medical history significant for hyperlipidemia, obstructive sleep apnea, history of MTHFR deficiency, history of DVT and PE in 2010 as per patient, status post IVC filter, morbid obesity, Queen, GERD, history of recurrent UTI, stress incontinence of urine, osteoarthritis, benign paroxysmal positional vertigo, primary open-angle glaucoma bilateral mild stage, generalized anxiety disorder, depression, medical marijuana use, admitted on 02/03 for COVID infection and weakness. Patient feeling better with course of steroids. Patient did not require oxygen. Patient's course overall uncomplicated. Patient overall improved. PT recommended home. On day of discharge, patient states she is feeling much improved overall and denies any acute concerns. She does note she has months of dry mouth, encouraged biiotene and discussion with PCP regarding symptoms. 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 Discontinue remdesivir Continue dexamethasone for 2 days upon discharge Continue with mucinex BID for 5 more days Continue IS #Allergic rhinitis Levocetirizine continue home Otc prn #Generalized weakness patient feeling improved, however, lives alone PT: safe for home #COPD Continue home inhalers and nebs as needed #History of DVT and PE #Status post IVC filter On Eliquis #Obstructive sleep apnea CPAP nightly #Hyperlipidemia On statin #Hypertension On lisinopril and metoprolol succinate increased lisinopril from 2.5 to 5mg #GERD Omeprazole Notes For Next Care Provider Patient with concern over chronic dry mouth, distressed over symptoms, can consider further exploration of etiologies as outpatient Medication Changes From Visit Increased lisinopril 5mg daily Dexamethsone 6mg for 2 more days Admission HPI Per Admitting Provider 78-year-old female with past medical history significant for hyperlipidemia, obstructive sleep apnea, history of MTHFR deficiency, history of DVT and PE in 2010 as per patient, status post IVC filter, morbid obesity, Queen, GERD, history of recurrent UTI, stress incontinence of urine, osteoarthritis, benign paroxysmal positional vertigo, primary open-angle glaucoma bilateral mild stage, generalized anxiety disorder, depression, medical marijuana use, presents with stuffy nose, shaking chills, headaches and bodyaches and weakness starting Sunday. Symptoms are progressively getting worse so came to the ER. Appetite is down today. Patient was admitted in 2021 for COVID and had a prolonged hospital course of 28 days and had a prolonged steroid course. And imaging studies showed postinflammatory scarring of the lungs at that time. Because of previous prolonged course with COVID patient was concerned and came to the hospital. Resting comfortably. She says she has chronic cough from previous COVID. She has chronic shortness of breath with exertion. Denies any nausea. Denies abdominal pain. No diarrhea. Micturating okay. Hemodynamics are okay currently. Past medical history. As mentioned above. Past surgical history. Right total knee arthroplasty. Colonoscopy. EGD. Excision of right breast lesion. IVC filter. Appendectomy. Tonsillectomy. Cholecystectomy. Sacroiliac joint injection. Lumbar spinal fusion surgery. Total abdominal hysterectomy with removal of tubes. Closed treatment of nasal fracture with stabilization. Family history. . Quit smoking 1989. Smokes 0.5 pack a day for 25 years. Alcohol 2 standard drinks of alcohol per week. Uses medical marijuana for sleep and pain, 2 times a week Admission Exam Per Admitting Provider General- Not in distress. Head- atraumatic Eyes- PERRL. ENT- oropharynx clear Neck- supple, no JVD. Lungs- clear to auscultation no wheezing or crackles Heart- regular rate and rhythm; no murmur, no gallop. Abdomen- normal bowel sounds, soft, nontender, no distension Extremities- no pretibial edema, no erythema seen Neuro- alert, oriented PERRL, no facial palsy; no dysarthria; moves extremities. Skin- warm & dry Discharge Exam Constitutional WD/WN, vitals as above Respiratory normal respiratory effort, lungs clear to auscultation Cardiovascular RRR, no murmur, no edema Gastrointestinal (Abdomen) normal bowel sounds, soft, nontender, no hepatosplenomegaly Musculoskeletal no cyanosis or clubbing, extremities motor strength 5/5 Neurologic PERRL, EOMI, accommodation nl, no face palsy, no dysarthria Updated Medication List Medication Instructions Recorded Confirmed Type amoxicillin 500 mg capsule 2,000 mg PO DIRECTED 03/20/22 03/05/24 History betamethasone valerate 0.1 % 1 applic topical BID PRN FLARE UPS 03/20/22 03/06/24 History topical ointment diclofenac sodium 1 % topical gel 1 ea topical BID PRN Pain 03/20/22 03/05/24 History duloxetine 60 mg capsule,delayed 60 mg PO DAILY 03/20/22 03/05/24 History release estradiol 0.01% (0.1 mg/gram) 1 applic vaginal Q2D 03/20/22 03/05/24 History vaginal cream folic acid 1 mg tablet 1 mg PO DAILY 03/20/22 03/05/24 History metoprolol succinate 25 mg 25 mg PO QAM 03/20/22 03/05/24 History tablet,extended release 24 hr nystatin 100,000 unit/gram topical 1 applic topical BID 03/20/22 03/05/24 History powder (Nystop) apixaban 5 mg tablet (Eliquis) 5 mg PO BID #60 tabs 04/14/22 03/05/24 Rx nebulizer accessories #1 ea 05/01/22 08/23/23 Rx rosuvastatin 5 mg tablet 5 mg PO DAILY 07/03/22 03/06/24 History latanoprost 0.005 % eye drops 1 drp OPB QPM 01/25/23 03/05/24 History omeprazole 40 mg capsule,delayed 40 mg PO DAILYBB 01/25/23 03/06/24 History release alendronate 70 mg tablet (Fosamax) 70 mg PO WK 08/23/23 03/05/24 History semaglutide 2 mg/dose (8 mg/3 mL) 2 mg subcut .weekly 08/23/23 03/06/24 History subcutaneous pen injector (Ozempic) albuterol sulfate 90 mcg/actuation 2 puff inhalation Q6H PRN 08/28/23 03/05/24 Rx aerosol inhaler Shortness Of Breath Or Wheezing #3 Inhalers umeclidinium 62.5 mcg-vilanterol 1 inh inhalation DAILY #180 ea 08/28/23 03/06/24 Rx 25 mcg/actuation powdr for inhalation (Anoro Ellipta) gabapentin 400 mg capsule 400 mg PO TID 03/05/24 03/05/24 History nystatin-triamcinolone 100,000 1 applic topical BID PRN Skin 03/06/24 03/06/24 History unit/g-0.1 % topical cream Irritation dexamethasone 6 mg tablet 6 mg PO DAILY #2 tabs 03/08/24 Rx guaifenesin 600 mg tablet, 600 mg PO Q12 5 days #10 tabs 03/08/24 Rx extended release 12 hr (Mucinex) lisinopril 5 mg tablet (Zestril) 5 mg PO QAM 30 days #30 tabs 03/08/24 Rx saliva substitute combo no.9 15 ml PO BID #473 mL 03/08/24 Rx (Biotene PBF mouthwash) Hospital Stay Data Consultations 03/06/24 00:19 ED Decision to Admit Stat 03/06/24 08:00 Consult Pulmonology Routine Pending Results Patient Have Any Pending Studies at Discharge: No Discharge Instructions Given to Patient (Per Discharging Provider) You were admitted for weakness and found to be COVID positive. You improved and required no oxygen. You will complete two more days of steroids -Dexamethasone 6mg daily for two more days Your blood pressure was noted to be persistently elevated despite your home regimen. Your lisinopril dosage was increased from 2.5mg to 5mg daily Please follow up with your pcp in 1-2 weeks Please continue Mucinex 600 mg two times a day for 5 more days Please discuss chronic dry mouth with your PCP Consider using Biotene swish and spit to help lubricate your mouth Total Time Total Time Spent Total Time Spent (In Minutes): 35
[2024-03-08 13:46] VITALS: PULSE 78
[2024-03-08 14:16] VITALS: O2SAT 97
== END 2024-03-08 14:44 | disposition home or self-care (01) | DRG 178 ==
LOC: ED 17:54 → EDINP 03-06 02:14 → 2N 03-06 16:54

== ENCOUNTER 2024-08-25 07:51 | Inpatient (IN) ==
--- OUTSIDE RECORDS SUMMARY | 2024-08-25 08:13 | External Medical Summary | Summary of Care ---
Author Name Unknown Organization [facility] Address [address] [place] [address] Phone [phone] Care Team Providers Care [employer] Name Role Phone Jcarlos Mcpherson PA-C Primary Care Provide r Reason for Visit * Reason Comments Medication Refill Encounter Details Date Type Department Care Team (Late st Contact Info) Description 08/18/2024 Refill Family Practice [facility], [place] [address] [place] [phone] Jcarlos Mcpherson PA-C [address] [facility] [place] [address] Class 2 severe obesity due to [...] as of this encounter (statuses as of 08/18/2024) Medications Albuterol Sulfate HFA 108 (90 Base) MCG/ACT Inhalation Aerosol Solution inhale 2 puffs by mouth every 6 hours as needed for shortness of breath or wheezing 54 g 1 4 8:22 AM EDT 08/28/19 24 Active Metoprolol Succinate ER 25 MG Oral Tablet Extended Release 24 Hour (toPROL XL)Indications:Prol onged QT interval,Abnormal genetic test,HTN, goal below 140/90,Dyslipidemia , goal LDL below 100 Take 1 Tablet by mouth in the morning. 100 Tablet 3 5 9:13 AM EST 08/31/19 24 Active Rosuvastatin Calcium 5 MG Oral Tablet (Crestor)Indication s:Prolonged QT interval,Abnormal genetic test,HTN, goal below 140/90,Dyslipidemia , goal LDL below 100 Take 1 Tablet by mouth in the morning. 100 Tablet 3 4 4:18 PM EST 08/31/19 24 Active Zinc 50 MG Oral Tablet Take [...] 1 Tablet by mouth at bedtime. Active NATURAL SUPPLEMENT Take 1 Capsule by mouth daily as needed. Medical Marijuana Capsules Active Nystatin-Triamcinol one 194516-8.1 UNIT/GM-% External Cream (Mycolog)Indication s:Yeast infection Apply to affected area two times per day for 1 week 15 g 2 11/22/19 24 Active Latanoprost 0.005 % Ophthalmic Solution (Xalatan) Instill 1 Drop into both eyes at bedtime. 10 mL 3 5 2:13 PM EST 11/23/19 24 Active Tamsulosin HCl 0.4 MG Oral Capsule (Flomax) TAKE ONE CAPSULE BY MOUTH EVERY MORNING 90 Capsule 3 4 3:34 PM EST 11/29/19 24 025 Active Omeprazole 40 MG Oral Capsule Delayed Release (PriLOSEC)Indicatio ns:Gastroesophageal reflux disease with esophagitis without hemorrhage Take 1 Capsule by mouth in the morning. 90 Capsule 2 4 10:50 AM EST 12/14/19 24 Active CPAP every night at bedtime. Active Estradiol 0.1 MG/GM Vaginal Cream (Estrace)Indication s:Vaginal atrophy Apply one-half gram topically to affected area in the morning. 42.5 g 6 5 2:03 PM EST 02/11/20 24 Active Gabapentin 400 MG Oral Capsule (Neurontin)Indicati ons:Sacroiliitis, not elsewhere classified (HCC) Take 1 Capsule by mouth in the morning and 1 Capsule at noon and 1 Capsule before bedtime. 270 Capsule 3 4 6:29 PM EST 02/26/20 24 Active Sulfamethoxazole-Tr imethoprim 400-80 MG Oral Tablet (Bactrim) Take 1 Tablet by mouth in the morning. 90 Tablet 3 02/26/20 24 Active Apixaban 5 MG Oral Tablet (Eliquis)Indication s:HTN, goal below 150/90,Edema TAKE ONE TABLET BY MOUTH EVERY MORNING AND TAKE ONE TABLET BY MOUTH AT BEDTIME 200 Tablet 1 5 12:10 PM EST 04/07/20 24 Active Fluticasone Propionate 50 MCG/ACT Nasal Suspension (Flonase) Administer 2 Sprays into each nostril in the morning. 48 g 3 5 12:10 PM EST 05/14/20 24 Active DULoxetine HCl 60 MG Oral Capsule Delayed Release Particles (Cymbalta)Indicatio ns:HTN, goal below 150/90 TAKE ONE CAPSULE BY MOUTH EVERY DAY DO NOT CRUSH, CUT OR CHEW 90 Capsule 1 4 10:50 AM EST 06/10/20 24 025 Active Anoro Ellipta 62.5-25 MCG/ACT Inhalation Aerosol Powder Breath Activated (umeclidinium-vilan terol) inhale one puff by mouth once daily 180 Each 1 06/16/20 24 Active Alendronate Sodium 70 MG Oral Tablet (Fosamax)Indication s:Age-related osteoporosis without current pathological fracture TAKE ONE TABLET BY MOUTH ONCE A WEEK WITH 8 OZ OF WATER 30 MINUTES BEFORE FIRST MEAL OF THE DAY. REMAIN UPRIGHT FOR 30 MINUTES AFTER TAKING TABLET 15 Tablet 1 5 10:27 AM EST 07/02/19 25 026 Active Diclofenac Sodium 1 % External Gel (Voltaren)Indicatio ns:Sacroiliitis, not elsewhere classified (HCC) Apply topically to affected area 4 times a day as needed for Pain. Apply to affected areas, back and hips, 4 times a day as needed for pain. 1050 g 3 07/10/19 25 Active Zoster Vac Recomb Adjuvanted 50 MCG/0.5ML Intramuscular Suspension Reconstituted (Shingrix)Indicatio ns:Need for vaccination for zoster Inject 0.5 mL into a large muscle now and repeat dose in 60 to 180 days 1 Each 1 07/10/19 25 Active Lisinopril 2.5 MG Oral Tablet (Prinivil)Indicatio ns:Prolonged QT interval,Abnormal genetic test,HTN, goal below 140/90,Dyslipidemia , goal LDL below 100 Take 1 Tablet by mouth in the morning. 100 Tablet 5 8:02 AM EST 07/28/19 25 Active Folic Acid 1 MG Oral TabletIndications:M THFR mutation TAKE ONE TABLET BY MOUTH EVERY DAY 100 Tablet 3 5 2:13 PM EST 08/15/19 25 Active Ozempic (2 MG/DOSE) 8 MG/3ML Subcutaneous Solution Pen-injector (Semaglutide (2 MG/DOSE))Indication s:Class 2 severe obesity due to excess calories with serious comorbidity and body mass index (BMI) of 36.0 to 36.9 in adult (HCC) Inject 2 mg under the skin once a week. 9 mL 1 08/18/19 25 Active Ozempic (2 MG/DOSE) 8 MG/3ML Subcutaneous Solution Pen-injector (Semaglutide (2 MG/DOSE))Indication s:Class 2 severe obesity due to excess calories with serious comorbidity and body mass index (BMI) of 36.0 to 36.9 in adult ([facility]) Inject 2 mg under the skin once a week. 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 Increased risk for Inherited Arrhythmias. Please click the link below for a brief summary of current clinical management recommendations for inherited arrhythmias. KCNQ1 Stress incontinence of urine 05/03/2021 Medical marijuana use 09/09/2020 Vaginal atrophy 08/27/2020 High risk for fracture due to osteoporosis by DE XA scan 07/15/2020 Overview (07/15/2020): DEXA scan 2020. Started on Fosamax 07/15/20 [...] 04/02/2017 Primary osteoarthritis of both knees 09/08/2016 BPPV (benign paroxysmal positional vertigo) 07/0 06/2015 DIAN (generalized anxiety disorder) 05/08/2014 SIMS (nonalcoholic steatohepatitis) 09/22/2013 LUIS (obstructive sleep apnea) 01/12/2012 Overview (09/29/2014): 09/04/14 PSG -- AHI 5.9, RDI 8.1, no desats, 11% TST snoring 12/22/11 PSG - AHI 7.1, very mild nocturnal desats, mild snoring Lumbar spinal stenosis Overview (04/04/2010): L 5 documented as of this encounter (statuses as of 08/18/2024) Resolved Problems Problem Noted Date Diagnosed Date [...] recurren t major depressive disorder 08/15/2018 08/06/2019 Overview (08/06/2019): More specific code in use. Contusion of face 02/21/2018 03/13/2018 Overview (02/21/2018): 02/14/18 While on vaction in [place] Facial laceration 02/21/2018 06/27/2021 Overview (02/21/2018): 02/14/18 While on vaction in [place] Closed fracture of nasal bones 02/21/2018 06/27/2021 Overview (02/21/2018): 02/14/18 While on vaction in [place] Fall on or from sidewalk curb 02/21/2018 03/13/2018 Overview (02/21/2018): 02/14/18 While on vaction in [place] History of nonmelanoma skin cancer 06/12/2017 12/20/2017 Overview (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 12/02 Trochanteric bursitis of right hip 05/16/2017 12/20/2017 Hx of non anemic vitamin B12 deficiency 04/02/2017 12/20/2017 History of laminectomy 07/26/201612/20 Dyslipidemia 12/24/2015 07/10/2024 HTN, goal below 150/90 12/24/201508/21 Bronchospasm, exercise-induced 10/07/2012 06/02/2016 Genetic Sleep Disorder [facility] Other*[id number] 10/19/2011 01/20/2016 Other pulmonary embolism and infarction 06/28/2011 05/30/2012 Deep venous thrombosis of lower extremity 06/28/2011 05/30/2012 Medical home patient encounter 06/28/2011 07/17/2022 Dyslipidemia, goal LDL below 130 01/09/2011 12/24/2015 Trigger finger 04/15/2010 01/09/2011 Carcinoma in situ of other s pecified sites of skin 12/24/2015 Overview (04/04/2010): nose 2009 Acute cystitis 09/08/2011 Acute sinusitis 09/08/2011 Calculus of kidney 6 Esophageal reflux 04/02/2017 Arthritis of knee 04/02/2017 Overview (04/04/2010): right Cyst of bursa 12/24/2015 Overview (04/04/2010): right knee HTN, goal below 140/90 12/23 documented as of this encounter (statuses as of 08/18/2024) Immunizations Name Administration Dates Next Due COVID-19 mRNA, LNP-s, No Pre serve, 2-Dose Series (Moderna) 08/25/2020,07/28/2020 COVID-19 mRNA, LNP-s, PF, 18 + or 6-11Yrs (Moderna) 05/10/2021 DTP Vaccine 05/08/2006 H1N1 2009 Influenza, IM 06/07/2009 Pneumococcal Conjugate Vacc, 13 Valent (Prevnar) 10/15/2015 Pneumococcal Polysaccharide PPV23 (Pneumovax) 04/04/2010 Season Influenza, Quad, PF, Adjuvanted, 65+ Yrs, IM (FLUAD) 03/04/2020 Seasonal Influenza Vac., MDV , IM, 0.5 mL (Fluzone) 03/01/2018,03/06/2015,04/07/2014,03/20,02/28/2012,03/24/2011,03/19/2010 Seasonal Influenza Virus Vac cine, Unspecified Formulation 03/04/2020,03/18/2019,03/13/2018,03/01,04/02/2017,03/21/2016,04/07/2014 ,03/20/2013,02/28/2012,03/24/2011,02/24 Seasonal Influenza, High Dos e, Trivalent, PF, IM (Fluzone HD) 04/02/2017 Seasonal Influenza, PF, 6 M & above, IM , (FluLaval or Fluzone) 03/13/2018 Seasonal Influenza, Quadriva lent Hd (Fluzone Hd) 02/21/2023,07/13/2022,03/14/2021 Seasonal Influenza, Quadriva lent, No Preserve, IM 03/21/2016 Seasonal Influenza, Trivalen t, Adjuvanted, 65+ YRS, PF, (Fluad) 04/01/2024,03/18/2019 TDAP (age 10 and older)(Boostrix) 12/24/2015 Varicella [...] ages 0-17 years) Not on file 09/12/2023 Food Insecurity Answer Date Recorded Within the past 12 months, y ou worried that your food would run out before you got the money to buy more. Patient declined Within the past 12 months, t he food you bought just didn't last and you didn't have money to get more. Never true Do you need food for this week? No 09/12/2023 Comments No Sex and Gender Information Value Date Recorded Sex Assigned at Female 07/13/2022 1:49 PM EST Legal Sex Female 5:03 AM EST Gender Identity Female 07/13/2022 1:49 PM EST Sexual Orientation Straight 07/13/2022 1: 49 PM EST Occupation Industry Job Start Date Job End Date retired /[employer] Not on file Not on file Not on f ile documented as of this encounter Miscellaneous Notes * Telephone Encounter - Jcarlos Mcpherson PA-C - 08/18/2024 2:28 PM EST Signed Prescriptions: Disp Refills Ozempic (2 MG/DOSE) 8 MG/3ML Subcutaneous *9 mL 1 Sig: Inject 2mg under the skin once a week.Authorizing Provider: JCARLOS MCPHERSON documented in this encounter Plan of Treatment Upcoming Encounters Date Type Department Care Team (Late st Contact Info) Description 08/20/2024 4:00 PM EST Office Visit Allergy/Immunology [facility] [address] [facility] [place] [address] Precious Cleaning PA-C [address] [facility] [place] [address] 09/09/2024 3:00 PM EDT Office Visit Urology, [facility] [address] [facility] [place] [address] Salvador Mireles MD [address] [place] [address] 09/18/2024 2:30 PM EDT Nurse Only Ancillary [address], [place] [address] [place] [address] [address], Nurse Annual Wellness [place] [address] [place] [address] 11/05/2024 8:00 AM EDT Office Visit Rheumatology [facility] [address] [facility] [place] [id number] Karyn Garcia CRNP [address] [facility] [address] 12/23/2024 2:30 PM EDT Office Visit Sleep Disorders Ctr [facility] [address] [facility] [place] [id number] Edilma Brown CRNP [address] [facility] [place] [id number] 12/23/2024 3:30 PM EDT Office Visit Cardiology, [facility] [address] [facility] [place] [address] Nevin Byrne PA-C [address] [facility] [place] [phone] 01/09/2025 2:40 PM EDT Office Visit Family Practice [address], [place] [address] [place] [address] Jcarlos Mcpherson PA-C [address] [place] [address] 01/21/2025 4:15 PM EDT Imaging Radiology [facility] 1st Floor, [place] [address] [facility] [phone] 02/04/2025 12:50 PM EDT Office Visit Dermatology [address], [place] [address] [place] [address] Amy Mckeon PA-C [address] [place] [id number] Health Maintenance Due Date Last Done Comments Zoster Vaccines (2 of 3) 11/17/2013 09/22/2013 COVID-19 Vaccine ( season) 2024 05/10/2021, 08/25/2020, 07/28/2020 Adult Wellness Visit 09/12/2024 09/13/2023, 07/13/19 23 Depression Monitoring 09/12/2024 09/13/2023 DXA Scan 12/06/2024 12/06/2022, 11/23, 07/13/2020, Additional history exists DTap/Tdap Vaccines (3 - Td or Tdap) 12/23/2025 12/24/2015, 05/08/2006 Hepatitis C Screening Completed 10/07/2010 Pneumococcal Vaccine: 50+ Years Completed 10/15/2015, 04/04/2010 Albumin/Creatinine Ratio Discontinued 09/27/2022, 10/2022 VITAMIN D LEVEL ONCE IN A LIFETIME-USE SMARTSET# [id number] Completed 04/30/2023, 12/21/2021, 09/13/2020, Additional history exists Influenza Vaccine (FLU shot) Completed 04/01/2024, 02/21/2023, 07/13/2022, Additional history exists HPV (Gardasil) Vaccine Aged Out No lo nger eligible based on patient's age to complete this topic Hepatitis B Vaccine Aged Out No longe r eligible based on patient's age to complete this topic MENINGOCOCCAL (MENACTRA/MENVEO) Aged Out No longer eligible based on patient's age to complete this topic Meningitis B Vaccine (Bexsero/Trumemba) Aged Out No longer eligible based on patient's age to complete this topic documented as of this encounter Medical Devices Not on filedocumented as of this encounter Visit Diagnoses Diagnosis Class 2 severe obesity due to excess calories with serious comorbidity and body mass index (BMI) of 36.0 to 36.9 in adult (HCC) documented in this encounter Care Teams [employer] Relationship Specialty Start Date End Date Jcarlos Mcpherson PA-C [facility] [facility] [place] [phone] PCP - General Physician [employer]riving [employer] In[employer] 07/10/23 documented as of this encounter
--- OUTSIDE RECORDS SUMMARY | 2024-08-25 08:14 | External Medical Summary | Summary of Care ---
Author Name Unknown Organization [facility] Address [address] [facility] [place] [address] Phone [phone] Care Team Providers Care Manager Operations And Procurement Name Role Phone Jcarlos Laureano PA-C Primary Care Provide r Encounter Details Date Type Department Care Team (Late st Contact Info) Description 07/14/2024 Orders Only PATIENT PORTAL DO NOT DELETE THIS DEPT USED BY [place] [id number] Allergies Active Allergy Reactions Criticality Noted Date [...] as of this encounter (statuses as of 07/14/2024) Medications Folic Acid 1 MG Oral TabletIndications:M THFR mutation TAKE ONE TABLET BY MOUTH EVERY DAY 90 Tablet 3 05/19/2024 1:40 PM EST 08/27/19 24 025 Active Albuterol Sulfate HFA 108 (90 Base) MCG/ACT Inhalation Aerosol Solution inhale 2 puffs by mouth every 6 hours as needed for shortness of breath or wheezing 54 g 1 11/24/2023 8:22 AM EDT 08/28/19 24 Active Lisinopril 2.5 MG Oral Tablet (Prinivil)Indicatio ns:Prolonged QT interval,Abnormal genetic test,HTN, goal below 140/90,Dyslipidemia , goal LDL below 100 Take 1 Tablet by mouth in the morning. 100 Tablet 2 04/21/2024 10:20 AM EDT 08/31/19 24 Active Metoprolol Succinate ER 25 MG Oral Tablet Extended Release 24 Hour (toPROL XL)Indications:Prol onged QT interval,Abnormal genetic test,HTN, goal below 140/90,Dyslipidemia , goal LDL below 100 Take 1 Tablet by mouth in the morning. 100 Tablet 3 04/28/2024 6:29 AM EST 08/31/19 24 Active Rosuvastatin Calcium 5 MG Oral Tablet (Crestor)Indication s:Prolonged QT interval,Abnormal genetic test,HTN, goal below 140/90,Dyslipidemia , goal LDL below 100 Take 1 Tablet by mouth in the morning. 100 Tablet 3 05/20/2024 4:18 PM EST 08/31/19 24 Active Zinc [...] needed. Medical Marijuana Capsules Active Nystatin-Triamcinol one 754413-5.1 UNIT/GM-% External Cream (Mycolog)Indication s:Yeast infection Apply to affected area two times per day for 1 week 15 g 2 11/22/19 24 Active Latanoprost 0.005 % Ophthalmic Solution (Xalatan) Instill 1 Drop into both eyes at bedtime. 10 mL 3 05/19/2024 1:22 PM EST 11/23/19 24 Active Tamsulosin HCl 0.4 MG Oral Capsule (Flomax) TAKE ONE CAPSULE BY MOUTH EVERY MORNING 90 Capsule 3 05/26/2024 3:34 PM EST 11/29/19 24 025 Active Omeprazole 40 MG Oral Capsule Delayed Release (PriLOSEC)Indicatio ns:Gastroesophageal reflux disease with esophagitis without hemorrhage Take 1 Capsule by mouth in the morning. 90 Capsule 2 06/12/2024 10:50 AM EST 12/14/19 24 Active CPAP every night at bedtime. Active Estradiol 0.1 MG/GM Vaginal Cream (Estrace)Indication s:Vaginal atrophy Apply one-half gram topically to affected area in the morning. 42.5 g 6 04/30/2024 7:17 AM EST 02/11/20 24 Active Gabapentin 400 MG Oral Capsule (Neurontin)Indicati ons:Sacroiliitis, not elsewhere classified (HCC) Take 1 Capsule by mouth in the morning and 1 Capsule at noon and 1 Capsule before bedtime. 270 Capsule 3 05/21/2024 6:29 PM EST 02/26/20 24 Active Sulfamethoxazole-Tr imethoprim 400-80 MG Oral Tablet (Bactrim) Take 1 Tablet by mouth in the morning. 90 Tablet 3 02/26/20 24 Active Ozempic (2 MG/DOSE) 8 MG/3ML Subcutaneous Solution Pen-injector (Semaglutide (2 MG/DOSE))Indication s:Class 2 severe obesity due to excess calories with serious comorbidity and body mass index (BMI) of 36.0 to 36.9 in adult (HCC) Inject 2 mg under the skin once a week. 9 mL 1 05/28/2024 10:45 AM EST 03/01/20 24 Active Apixaban 5 MG Oral Tablet (Eliquis)Indication s:HTN, goal below 150/90,Edema TAKE ONE TABLET BY MOUTH EVERY MORNING AND TAKE ONE TABLET BY MOUTH AT BEDTIME 200 Tablet 1 04/08/2024 8:47 AM EDT 04/07/20 24 Active Fluticasone Propionate 50 MCG/ACT Nasal Suspension (Flonase) Administer 2 Sprays into each nostril in the morning. 48 g 3 05/14/2024 4:53 PM EST 05/14/20 24 Active DULoxetine HCl 60 MG Oral Capsule Delayed Release Particles (Cymbalta)Indicatio ns:HTN, goal below 150/90 TAKE ONE CAPSULE BY MOUTH EVERY DAY DO NOT CRUSH, CUT OR CHEW 90 Capsule 1 06/12/2024 10:50 AM EST 06/10/20 24 025 Active [...] MINUTES AFTER TAKING TABLET 15 Tablet 1 07/05/2024 10:27 AM EST 07/02/19 25 026 Active [...] days 1 Each 1 07/10/19 25 Active documented as of this encounter (statuses as of 07/14/2024) Active Problems Problem Noted Date Diagnosed Date Mild persistent asthma without complication 06/25 Impingement syndrome of left shoulder 09/05/2022 Sacroiliitis, not elsewhere classified 3 Pure hypercholesterolemia 06/29/2022 Primary open-angle glaucoma, bilateral, mild sta ge 05/04/2022 Morbid obesity 05/04/2022 Monoallelic mutation of KCNQ1 gene 12/15/2021 Overview (12/15/2021): likely pathogenic KCNQ1 gene variant (c.1081 C>T, p.(Q361*)) detected via [facility]. Increased risk for Inherited Arrhythmias. Please click [...] knees 09/08/2016 BPPV (benign paroxysmal positional vertigo) 0706/2015 DIAN (generalized anxiety disorder) 05/08/2014 SIMS (nonalcoholic steatohepatitis) 09/22/2013 LUIS (obstructive sleep apnea) 01/12/2012 Overview (09/29/2014): 09/04/14 PSG -- AHI 5.9, RDI 8.1, no desats, 11% TST snoring 12/22/11 PSG - AHI 7.1, very mild nocturnal desats, mild snoring Lumbar spinal stenosis Overview (04/04/2010): L 5 documented as of this encounter (statuses as of 07/14/2024) Resolved Problems Problem Noted Date Diagnosed Date [...] Overview (02/21/2018): 02/14/18 While on vaction in [place] Facial laceration 02/21/2018 06/27/2021 Overview (02/21/2018): 02/14/18 While on vaction in [place] Closed fracture of nasal bones 02/21/2018 06/27/2021 Overview (02/21/2018): 02/14/18 While on vaction in [place] Fall on or from sidewalk curb 02/21/2018 03/13/2018 Overview (02/21/2018): 02/14/18 While on vaction in [place] History of nonmelanoma skin cancer 06/12/2017 12/20/2017 Overview (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 12/02 Trochanteric bursitis of right hip 05/16/2017 12/20/2017 Hx of non anemic vitamin B12 deficiency 04/02/2017 12/20/2017 History of laminectomy 07/26/201612/20 Dyslipidemia 12/24/2015 07/10/2024 HTN, goal below 150/90 12/24/201508/21 Bronchospasm, exercise-induced 10/07/2012 06/02/2016 Genetic Sleep Disorder Resea [facility] Other*[id number] 10/19/2011 01/20/2016 Other pulmonary embolism and infarction 06/28/2011 05/30/2012 Deep venous thrombosis of lower extremity 06/28/2011 05/30/2012 Medical home patient encounter 06/28/2011 07/17/2022 Dyslipidemia, goal LDL below 130 01/09/2011 12/24/2015 Trigger finger 04/15/2010 01/09/2011 Carcinoma in situ of other s pecified sites of skin 12/24/2015 Overview (04/04/2010): nose 2010 Acute cystitis 09/08/2011 Acute sinusitis 09/08/2011 Calculus of kidney 6 Esophageal reflux 04/02/2017 Arthritis of knee 04/02/2017 Overview (04/04/2010): right Cyst of bursa 12/24/2015 Overview (04/04/2010): right knee HTN, goal below 140/90 12/23 documented as of this encounter (statuses as of 07/14/2024) Immunizations Name Administration Dates Next Due COVID-19 [...] ages 0-17 years) Not on file 09/12/2023 Comments No Sex and Gender Information Value Date Recorded Sex Assigned at Female 07/13/2022 1:49 PM EST Legal Sex Female 5:03 AM EST Gender Identity Female 07/13/2022 1:49 PM EST Sexual Orientation Straight 07/13/2022 1: 49 PM EST 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 Not on file Not on f ile documented as of this encounter Plan of Treatment Upcoming Encounters Date Type Department Care Team (Late st Contact Info) Description 08/14/2024 1:00 PM EST Office Visit Allergy/Immunology [facility] [address] [place] [address] Precious Cleaning PA-C [address] [place] [address] 09/09/2024 3:00 PM EDT Office Visit Urology, [facility] [address] [facility] [place] [phone] Salvador Mireles MD [address] [place] [id number] 09/18/2024 2:30 PM EDT Nurse Only Ancillary [address], [place] [address] [place] [address] [place], Nurse Annual [facility] [address] [place] [address] 11/05/2024 8:00 AM EDT Office Visit [facility]umat[facility] [phone] Karyn Garcia CRNP [address] [place] [address], [place] [address] 12/23/2024 2:30 PM EDT Office Visit Sleep Disorders Ctr [facility] [address] [facility] [place] [phone] Edilma Brown CRNP [address] [facility] [place] [address] 01/09/2025 2:40 PM EDT Office Visit Family Practice [address], [place] [address] [place] [address] Jcarlos Laureano PA-C [address] [place] [address] 01/21/2025 4:15 PM EDT Imaging Radiology [facility] 1st Floor, [place] [address] [facility] [place] [phone] 02/04/2025 12:50 PM EDT Office Visit Dermatology [address], [place] [address] [place] [address] Amy Mckeon PA-C [address] [place] [id number] Health Maintenance Due Date Last Done Comments [...] D LEVEL ONCE IN A LIFETIME-USE SMARTSET# [id number] Completed 04/30/2023, 12/21/2021, 09/13/2020, Additional history exists [...] filedocumented as of this encounter Care Teams Manager Operations And Procurement Relationship Specialty Start Date End Date Jcarlos Laureano PA-C [address] [facility] [place] [phone] PCP - General Physician Obstetrics Technician 07/10/23 documented as of this encounter
--- OUTSIDE RECORDS SUMMARY | 2024-08-25 08:14 | External Medical Summary | Summary of Care ---
Author Name Unknown Organization [facility] Address [address] [facility] [address] Phone [phone] Care Team Providers Care Fuel Storage Technician Name Role Phone Jcarlos Laureano PA-C Primary Care Provide r Reason for Visit * Reason Comments Medication Refill Encounter Details Date Type Department Care Team (Late st Contact Info) Description 07/27/2024 Refill Cardiology, [facility] [address] [place] [address] Anabell Dunham CRNP [address] [place] [address] Prolonged QT interval; Abnormal genetic test; HTN, goal below 140/90; Dyslipidemia, goal LDL below 100 Allergies Active Allergy Reactions Criticality Noted Date [...] as of this encounter (statuses as of 07/29/2024) Medications Folic Acid 1 MG Oral TabletIndications:M THFR mutation TAKE ONE TABLET BY MOUTH EVERY DAY 90 Tablet 3 4 1:40 PM EST 08/27/19 24 025 Active [...] in the morning. 100 Tablet 3 4 6:29 AM EST 08/31/19 24 Active Rosuvastatin [...] needed. Medical Marijuana Capsules Active Nystatin-Triamcinol one 663325-3.1 UNIT/GM-% External Cream (Mycolog)Indication s:Yeast infection Apply to affected area two times per day for 1 week 15 g 2 11/22/19 24 Active Latanoprost 0.005 % Ophthalmic Solution (Xalatan) Instill 1 Drop into both eyes at bedtime. 10 mL 3 4 1:22 PM EST 11/23/19 24 Active Tamsulosin [...] 1 4 10:45 AM EST 03/01/20 24 Active Apixaban 5 MG Oral Tablet (Eliquis)Indication s:HTN, goal below 150/90,Edema TAKE ONE TABLET BY MOUTH EVERY MORNING AND TAKE ONE TABLET BY MOUTH AT BEDTIME 200 Tablet 1 5 12:10 PM EST 04/07/20 24 Active Fluticasone Propionate 50 MCG/ACT Nasal Suspension (Flonase) Administer 2 Sprays into each nostril in the morning. 48 g 3 4 4:53 PM EST 05/14/20 24 Active DULoxetine [...] by mouth in the morning. 100 Tablet 07/28/19 25 Active Lisinopril 2.5 MG Oral Tablet (Prinivil)Indicatio ns:Prolonged QT interval,Abnormal genetic test,HTN, goal below 140/90,Dyslipidemia , goal LDL below 100 Take 1 Tablet by mouth in the morning. 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 Increased risk for Inherited Arrhythmias. Please click [...] knees 09/08/2016 BPPV (benign paroxysmal positional vertigo) 07/06/2015 DIAN (generalized anxiety disorder) 05/08/2014 SIMS (nonalcoholic steatohepatitis) 09/22/2013 LUIS (obstructive sleep apnea) 01/12/2012 Overview (09/29/2014): 09/04/14 PSG -- AHI 5.9, RDI 8.1, no desats, 11% TST snoring 12/22/11 PSG - AHI 7.1, very mild nocturnal desats, mild snoring Lumbar spinal stenosis Overview (04/04/2010): L 5 documented as of this encounter (statuses as of 07/29/2024) Resolved Problems Problem Noted Date Diagnosed Date [...] Overview (02/21/2018): 02/14/18 While on vaction in [place] Facial laceration 02/21/2018 06/27/2021 Overview (02/21/2018): 02/14/18 While on vaction in [place] Closed fracture of nasal bones 02/21/2018 06/27/2021 Overview (02/21/2018): 02/14/18 While on vaction in [place] Fall on or from sidewalk curb 02/21/2018 03/13/2018 Overview (02/21/2018): 02/14/18 While on vaction in [place] History of nonmelanoma skin cancer 06/12/2017 12/20/2017 Overview (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 12/02 Trochanteric bursitis of right hip 05/16/2017 12/20/2017 Hx of non anemic vitamin B12 deficiency 04/02/2017 12/20/2017 History of laminectomy 07/26/201612/20 Dyslipidemia 12/24/2015 07/10/2024 HTN, goal below 150/90 12/24/201508/21 Bronchospasm, exercise-induced 10/07/2012 06/02/2016 Genetic Sleep Disorder Resea [facility] Other*[id number] 10/19/2011 01/20/2016 Other pulmonary embolism and infarction [...] as of this encounter (statuses as of 07/29/2024) Immunizations Name Administration Dates Next Due COVID-19 [...] 09/12/2023 Does the household have a re lar source of income? (Household - for ages [...] encounter Miscellaneous Notes * Telephone Encounter - Anabell Dunham CRNP - 07/28/2024 3:58 PM EST Signed Prescriptions: Disp Refills Lisinopril 2.5 MG Oral Tablet (Prinivil) 100 Ta*0 Sig: Take 1 Tablet by mouth in the morning. Authorizing Provider: ANABELL DUNHAM * Telephone Encounter - Glendy Ba PHARM Tech - 07/28/2024 3:54 PM EST Pt returning missed call for appt. Transferred to scheduling for assistance. Thank You, Glendy Ba [facility] Network Systems Operator II [facility] ([facility]) 07/28/2024, 3:55 PM * Telephone Encounter - Zack Lazaro PHARM Tech - 07/28/2024 3:22 PM ESTPending Prescriptions: Disp Refills Lisinopril 2.5 MG Oral Tablet (Prinivil) 100 Ta*0 Sig: Take 1 Tablet by mouth in the morning. * Telephone Encounter - Zack Lazaro advanced clinical specialist - 07/28/2024 3:22 PM EST Received message from [facility] regarding patient needing an appointment. Call Placed, Left message on voicemail to call back and schedule appointment. Thank you, Zack Lazaro Veterinary Laboratory Diagnostician [facility] 07/28/2024, 3:22 PM * Telephone Encounter - Rashida Sandra RPh - 07/28/2024 1:50 PM ESTPending Prescriptions: Disp Refills Lisinopril 2.5 MG Oral Tablet (Prinivil) 100 Ta*0 Sig: Take 1 Tablet by mouth in the morning. * Telephone Encounter - Rashida Sandra RPh - 07/28/2024 1:46 PM EST Previous provider: ERIN Call Please contact patient so that an appointment can be scheduled with her CARDIOLOGY provider before this refill can be authorized. After contacting patient, please forward request to the provider theyschedule with (if unable to reach, please forward request to ERIN Berman). Last Visit: 08/31/2023 (in office), Visit date not found (telemedicine) Next Visit: Visit date not found Rashida Billings, PharmD Clinical Pharmacist [facility] 07/28/2024, 1:48 PM documented in this encounter Plan of Treatment Upcoming Encounters Date Type Department Care Team (Late st Contact Info) Description 08/14/2024 1:00 PM EST Office Visit Allergy/Immunology [facility] [place] [address] [place] [address] Precious Cleaning PA-C [address] [place] [address] 09/09/2024 3:00 PM EDT Office Visit Urology, [facility] [address] [facility] [place] [address] Salvador Mireles MD [address] [place] [address] 09/18/2024 2:30 PM EDT Nurse Only Ancillary [address], [place] [address] [place] [address] [place], Nurse Annual Wellness Cold [address] [place] [address] 11/05/2024 8:00 AM EDT Office Visit Rheumatology [facility] [address] [facility] [place] [phone] Karyn Garcia CRNP [address] [place] [address], [place] [address] 12/23/2024 2:30 PM EDT Office Visit Sleep Disorders Ctr [facility] [address] [facility] [place] [phone] Edilma Brown CRNP [address] [facility] [place] [address] 12/23/2024 3:30 PM EDT Office Visit Cardiology, [facility] [address] [facility] [place] [address] Nevin Byrne PA-C [address] [place], [place] [address] [address] 01/09/2025 2:40 PM EDT Office Visit Family Practice [address], [place] [address] [place] [address] Jcarlos Laureano PA-C [address] [place] [address] 01/21/2025 4:15 PM EDT Imaging Radiology [facility] [facility] [address] [place] [phone] 02/04/2025 12:50 PM EDT Office Visit Dermatology [address], [place] [address] [place] [address] Amy Mckeon PA-C [address] [facility] [place] [address] Health Maintenance Due Date Last Done Comments [...] D LEVEL ONCE IN A LIFETIME-USE SMARTSET# [id number] Completed 04/30/2023, 12/21/2021, 09/13/2020, Additional history exists [...] as of this encounter Visit Diagnoses Diagnosis Prolonged QT interval Nonspecific abnormal electrocardiogram (ECG) (EKG) Abnormal genetic test Nonspecific abnormal findings on chromosomal analysis HTN, goal below 140/90 Unspecified essential hypertension Dyslipidemia, goal LDL below 100 Other and unspecified hyperlipidemia documented in this encounter Care Teams Fuel Storage Technician Relationship Specialty Start Date End Date Jcarlos Laureano PA-C [address] [facility] [place] [address] PCP - General Physician Specifications Checker 07/10/23 documented as of this encounter
--- OUTSIDE RECORDS SUMMARY | 2024-08-25 08:14 | External Medical Summary | Summary of Care ---
Author Name Unknown Organization [facility] Address [address] [facility] [address] Phone [phone] Care Team Providers Care Improvement Analyst Name Role Phone Jcarlos Laureano PA-C Primary Care Provide r Encounter Details Date Type Department Care Team (Late st Contact Info) Description 08/05/2024 Population Health External Data Unspecified Department Allergies [...] as of this encounter (statuses as of 08/06/2024) Medications Folic Acid 1 MG Oral TabletIndications:M THFR mutation TAKE ONE TABLET BY MOUTH EVERY DAY 90 Tablet 3 05/19/2024 1:40 PM EST 08/27/19 24 025 Active Albuterol Sulfate HFA 108 (90 Base) MCG/ACT Inhalation Aerosol Solution inhale 2 puffs by mouth every 6 hours as needed for shortness of breath or wheezing 54 g 1 11/24/2023 8:22 AM EDT 08/28/19 24 Active Metoprolol Succinate ER 25 MG Oral Tablet Extended Release 24 Hour (toPROL XL)Indications:Prol onged QT interval,Abnormal genetic test,HTN, goal below 140/90,Dyslipidemia , goal LDL below 100 Take 1 Tablet by mouth in the morning. 100 Tablet 3 08/05/2024 9:13 AM EST 08/31/19 24 Active Rosuvastatin [...] needed. Medical Marijuana Capsules Active Nystatin-Triamcinol one 594379-5.1 UNIT/GM-% External Cream (Mycolog)Indication s:Yeast infection Apply [...] area in the morning. 42.5 g 6 07/23/2024 2:03 PM EST 02/11/20 24 Active Gabapentin [...] BY MOUTH AT BEDTIME 200 Tablet 1 07/17/2024 12:10 PM EST 04/07/20 24 Active Fluticasone Propionate 50 MCG/ACT Nasal Suspension (Flonase) Administer 2 Sprays into each nostril in the morning. 48 g 3 08/06/2024 12:10 PM EST 05/14/20 24 Active DULoxetine [...] by mouth in the morning. 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 Increased risk for Inherited Arrhythmias. Please click [...] knees 09/08/2016 BPPV (benign paroxysmal positional vertigo) 06/2015 DIAN (generalized anxiety disorder) 05/08/2014 SIMS (nonalcoholic steatohepatitis) 09/22/2013 LUIS (obstructive sleep apnea) 01/12/2012 Overview (09/29/2014): 09/04/14 PSG -- AHI 5.9, RDI 8.1, no desats, 11% TST snoring 12/22/11 PSG - AHI 7.1, very mild nocturnal desats, mild snoring Lumbar spinal stenosis Overview (04/04/2010): L 5 documented as of this encounter (statuses as of 08/06/2024) Resolved Problems Problem Noted Date Diagnosed Date [...] Overview (02/21/2018): 02/14/18 While on vaction in [place] Facial laceration 02/21/2018 06/27/2021 Overview (02/21/2018): 02/14/18 While on vaction in [place] Closed fracture of nasal bones 02/21/2018 06/27/2021 Overview (02/21/2018): 02/14/18 While on vaction in [place] Fall on or from sidewalk curb 02/21/2018 03/13/2018 Overview (02/21/2018): 02/14/18 While on vaction in [place] History of nonmelanoma skin cancer 06/12/2017 12/20/2017 Overview (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 12/02 Trochanteric bursitis of right hip 05/16/2017 12/20/2017 Hx of non anemic vitamin B12 deficiency 04/02/2017 12/20/2017 History of laminectomy 07/26/201612/20 Dyslipidemia 12/24/2015 07/10/2024 HTN, goal below 150/90 12/24/201508/21 Bronchospasm, exercise-induced 10/07/2012 06/02/2016 Genetic Sleep Disorder [facility] Other*[id number] 10/19/2011 01/20/2016 Other pulmonary embolism and infarction [...] as of this encounter (statuses as of 08/06/2024) Immunizations Name Administration Dates Next Due COVID-19 [...] No 09/12/2023 Does the household have a [facility] source of income? (Household - [...] PM EST Office Visit Allergy/Immunology [facility] [place] [address] [place] [address] Precious Cleaning PA-C [address] [place] [address] 09/09/2024 3:00 PM EDT Office Visit Urology, [facility] [address] [facility] [place] [address] Salvador Mierles MD [address] [place] [address] 09/18/2024 2:30 PM EDT Nurse Only Ancillary [address], [place] [address] [place] [address] [place], Nurse [facility] [address] [place] [address] 11/05/2024 8:00 AM EDT Office Visit Rheumatology [facility] 132 [facility] [place] [phone] Karyn Garcia CRNP [address] [place] [address], [place] [address] 12/23/2024 2:30 PM EDT Office Visit [facility] Disorders Ctr [facility] [address] [facility] [place] [phone] Edilma Brown CRNP [address] [facility] [place] [address] 12/23/2024 3:30 PM EDT Office Visit Cardiology, [facility] [address] [facility] [place] [address] Nevin Byrne PA-C [address] [place], [place] [address] [address] 01/09/2025 2:40 PM EDT Office Visit Family Practice [address], [place] [address] [place] [address] Jcarlos Laureano PA-C [address] [place] [address] 01/21/2025 4:15 PM EDT Imaging Radiology [facility]st [facility] [address] [place] [address] 02/04/2025 12:50 PM EDT Office Visit Dermatology [facility], [place] [address] [facility] [address] Amy Mckeon PA-C [address] [facility] [address] Health Maintenance Due Date Last Done Comments [...] D LEVEL ONCE IN A LIFETIME-USE SMARTSET# [id number] Completed 04/30/2023, 12/21/2021, 09/13/2020, Additional history exists [...] filedocumented as of this encounter Care Teams Improvement Analyst Relationship Specialty Start Date End Date Jcarlos Laureano PA-C [address] [facility] [place] [address] PCP - General Physician Model Maker Pl[employer] 07/10/23 documented as of this encounter
--- OUTSIDE RECORDS SUMMARY | 2024-08-25 08:14 | External Medical Summary ---
Author Name Unknown Address Unknown Organization K01:LABORATORY [facility] – [place], [place] - [address] [facility] [address] Laboratory Report Ordering Provider Test Date Status VIDA SILVA 07/21/2024 11:39:01 Final Observation Date Value Abnormality Reference (Units ) Status HbA1C 07/21/2024 11:39:01 5.3 4.0-5.6 (% ) Final The use of HbA1c to monitor glycemic status is based on normal hemoglobin and HbA composition. This test should not be used in patients with abnormal hemoglobin that affects the half life of the red blood cell or the in vivo glycation rates. Glucose, estimated average 07/21/2024 11:39:01 105 <126 (mg/dL) Final Performing Location LAB[facility]ATORY [facility] [place] [place] - [address] [facility] [address]
--- OUTSIDE RECORDS SUMMARY | 2024-08-25 08:14 | External Medical Summary ---
Author Name Unknown Address Unknown Organization [id number]:[place] [place] [address] [facility] [address] Laboratory Report Ordering Provider Test Date Status VIDA SILVA 07/21/2024 11:39:01 Final Observation Date Value Abnormality Reference (Units ) Status BUN 07/21/2024 11:39:01 21 Above high normal 6-20 (mg/dL) Final Creatinine 07/21/2024 11:39:01 0.6 0.5-1.0 (mg/dL) Final Glomerular filtration rate/1.73 sq M.predicted [Volume Rate/Area] in Serum, Plasma or Blood by Creatinine-based formula (CKD-EPI) 07/21/2024 11:39:01 90 >=60 (mL/min) Final eGFR is calculated based on the CKD-EPI 2020 equation. Sodium 07/21/2024 11:39:01 141 135-146 (m mol/L) Final Potassium 07/21/2024 11:39:01 4.2 3.5-5.1 (m mol/L) Final Cl 07/21/2024 11:39:01 104 98-107 (mm ol/L) Final CO2 07/21/2024 11:39:01 27 22-32 (mmo l/L) Final Anion gap 07/21/2024 11:39:01 10 7-15 (mmol /L) Final Glucose 07/21/2024 11:39:01 95 70-120 (mg /dL) Final Albumin 07/21/2024 11:39:01 4.3 3.8-5.0 (g /dL) Final AST (Aspartate aminotransferase) 07/21/2024 11:39:01 28 10-35 (U/L) Final Alk Phos 07/21/2024 11:39:01 81 35-130 (U/ L) Final Bilirubin, Total 07/21/2024 11:39:01 0.3 <=1 .2 (mg/dL) Final Calcium 07/21/2024 11:39:01 9.5 8.4-10.2 ( mg/dL) Final Protein 07/21/2024 11:39:01 6.0 6.0-8.3 (g /dL) Final ALT (Alanine aminotransferase) 07/21/2024 11:39:01 35 10-35 (U/L) Final Performing Location [facility] [place] [facility] [address] [facility] [address]
--- OUTSIDE RECORDS SUMMARY | 2024-08-25 08:14 | External Medical Summary ---
Author Name Unknown Address Unknown Organization [id number]:LABORATORY [facility] [place] - [address] [place] [id number] Laboratory Report Ordering Provider Test Date Status VIDA SILVA 07/21/2024 11:39:01 Final Observation Date Value Abnormality Reference (Units ) Status WBC, Total 07/21/2024 11:39:01 4.76 4.00-10.8 0 (K/uL) Final RBC 07/21/2024 11:39:01 4.59 3.85-5.15 (M/uL) Final Hemoglobin 07/21/2024 11:39:01 15.3 12.0-15.3 (g/dL) Final Anemia reflex testing trigge rs on a HGB < 12.0 for Females and HGB < 13.0 for Males in accordance with the WHO Anemia Guidelines
Anemia reflex testing triggers on a HGB < 12.0 for Females and HGB < 13.0 for Males in accordance with the WHO Anemia Guidelines HCT 07/21/2024 11:39:01 46.6 Above hi gh normal 36.0-45.2 (%) Final MCV 07/21/2024 11:39:01 101.5 81.5-97.5 (fL) Final MCH 07/21/2024 11:39:01 33.3 27.0-34.0 (pg) Final MCHC 07/21/2024 11:39:01 32.8 32.0-36.0 (g/dL) Final RDW 07/21/2024 11:39:01 12.3 11.5-15.5 (%) Final Platelets 07/21/2024 11:39:01 180 140-400 (K /uL) Final MPV 07/21/2024 11:39:01 10.1 6.6-11.1 ( fL) Final Nucleated erythrocytes/100 leukocytes [Ratio] in Blood by Automated count 07/21/2024 11:39:01 0 <=0 (/100 WBCs) Fi nal Performing Location LABORATORY [facility] [place] - [address] [facility] [address]
--- OUTSIDE RECORDS SUMMARY | 2024-08-25 08:14 | External Medical Summary ---
Author Name Unknown Address Unknown Organization K01:LABORATORY [facility] [place] - [address] [place] [address] Laboratory Report Ordering Provider Test Date Status VIDA SILVA 07/21/2024 11:39:01 Final Observation Date Value Abnormality Reference (Units ) Status SYNC LEUKOCYTES IN BLOOD BY AUTOMATED COUNT 07/21/2024 11:39:01 4.76 4.00-10.80 (K/uL) Final Segs 07/21/2024 11:39:01 59.5 40.0-75.0 (%) Final Lymphs % 07/21/2024 11:39:01 27.3 18.0-42.0 (%) Final Monos 07/21/2024 11:39:01 7.6 1.0-11.0 (%) Final Eosinophils 07/21/2024 11:39:01 4.6 0.0-6.0 (%) Final Basos 07/21/2024 11:39:01 0.6 0.0-2.0 (%) Final Immature Granulocyte, Percent 07/21/2024 11:39:01 0.4 0.0-2.0 (%) Final Absolute Segs 07/21/2024 11:39:01 2.83 1.80-7.70 (K/uL) Final Lymphs, absolute 07/21/2024 11:39:01 1.30 1.00-4.80 (K/ul) Final Monos, Abs 07/21/2024 11:39:01 0.36 0.00-1.10 (K/uL) Final Eos, Abs 07/21/2024 11:39:01 0.22 0.00-0.70 (K/uL) Final Basos, Abs 07/21/2024 11:39:01 0.03 0.00-0.20 (K/uL) Final Immature Granulocytes, Number 07/21/2024 11:39:01 0.02 0.00-0.20 (K/uL) Final Performing Location LABORATORY [facility] [place] - [address] [facility] [address]
--- OUTSIDE RECORDS SUMMARY | 2024-08-25 08:14 | External Medical Summary ---
Author Name Unknown Address Unknown Organization K01[place] [facility] [place] [address] [facility] [address] Laboratory Report Ordering Provider Test Date Status VIDA SILVA 07/21/2024 11:39:01 Final Observation Date Value Abnormality Reference (Units ) Status Triglyceride 07/21/2024 11:39:01 201 Above high normal <=174 (mg/dL) Final Triglyceride Reference Range s (mg/dL):
<150 Acceptable
150-174 Borderline high
175-499 High
>=500 Very high Cholesterol 07/21/2024 11:39:01 147 <200 (mg /dL) Final Total Cholesterol Reference Ranges (mg/dL):
<200 Desirable
200-239 Borderline high
>=240 High HDL 07/21/2024 11:39:01 37 Below low normal >49 (mg/dL) Final HDL Cholesterol Reference Ra nges (mg/dL):
>=60 High (Desirable)
<50 Low (Undesirable) For Females
<40 Low (Undesirable) For Males NON-HDL CHOLESTEROL 07/21/2024 11:39:01 110 <=159 (mg/dL) Final Non-HDL Cholesterol Referenc e Range (mg/dL):
<100 Target level for high risk ASCVD patient
<130 Optimal for general population
130-159 Near optimal for general population
160-189 Borderline High
190-219 High
>=220 Very High LDL, (calculated) 07/21/2024 11:39:01 70 <= 129 (mg/dL) Final LDL Cholesterol Reference Ra nges (mg/dL):
<70 Target level for high risk ASCVD patient
<100 Optimal for general population
100-129 Near optimal for general population
130-159 Borderline high
160-189 High
>=190 Very high Performing Location [facility] [place] [address] [facility] [address]
--- OUTSIDE RECORDS SUMMARY | 2024-08-25 08:14 | External Medical Summary | Summary of Care ---
Author Name Unknown Organization [facility] Address [address] [facility] [address] Phone [phone] Care Team Providers Care Environmental Marketing Representative Name Role Phone Jcarlos Laureano PA-C Primary Care Provide r Encounter Details Date Type Department Care Team (Late st Contact Info) Description 07/14/2024 Population Health External Data Unspecified Department Allergies [...] needed. Medical Marijuana Capsules Active Nystatin-Triamcinol one 547058-6.1 UNIT/GM-% External Cream (Mycolog)Indication s:Yeast infection Apply [...] gene variant (c.1081 C>T, p.(Q361*)) detected via [employer]. Increased risk for Inherited Arrhythmias. Please click [...] [facility] Other*[id number] 10/19/2011 01/20/2016 Other pulmonary embolism and infarction [...] No 09/12/2023 Does the household have a rustlar source of income? (Household - for ages [...] 08/14/2024 1:00 PM EST Office Visit Allergy/Immunology [facility] 200 [facility] [place] [address] Precious Cleaning PA-C [address] [facility] [place] [address] 09/09/2024 3:00 PM EDT Office Visit Urology, [facility] [address] [address] Salvador Mireles MD [address] [place] [address] 09/18/2024 2:30 PM EDT Nurse Only Ancillary [address] [place] [address] [place], Nurse Annual Wellness Cold [address] [place], [place] [address] 11/05/2024 8:00 AM EDT Office Visit Rheumatology [facility] [address] [place] [address] Karyn Garcia CRNP [facility] [place] [address] 12/23/2024 2:30 PM EDT Office Visit Sleep Disorders Ctr [facility] [address] [place] [phone] Edilma Brown CRNP [address] [place] [address] 01/09/2025 2:40 PM EDT Office Visit Family Practice [address], [place] [address] [place] [address] Jcarlos Laureano PA-C [address] [place] [address] 01/21/2025 4:15 PM EDT Imaging Radiology [facility] 1st Floor, [place] 132 [facility] [place] [phone] 02/04/2025 12:50 PM EDT Office Visit Dermatology [address], [place] [address] [place] [address] Amy Mckeon PA-C [address] [place] [address] Health Maintenance Due Date Last Done Comments [...] D LEVEL ONCE IN A LIFETIME-USE SMARTSET# [id number] Completed 04/30/2023, 12/21/2021, 09/13/2020, Additional history exists [...] filedocumented as of this encounter Care Teams Environmental Marketing Representative Relationship Specialty Start Date End Date Jcarlos Laureano PA-C [facility] [place] [phone] PCP - General Physician Print Production Coordinator 07/10/23 documented as of this encounter
--- OUTSIDE RECORDS SUMMARY | 2024-08-25 08:14 | External Medical Summary | Summary of Care ---
Author Name Unknown Organization [facility] Address [address] [facility] [place] [address] Phone [phone] Care Team Providers Care Vehicle Body Maker Name Role Phone Jcarlos Laureano PA-C Primary Care Provide r Reason for Visit * Reason Comments Outpatient Testing Encounter Details Date Type Department Care Team (Late st Contact Info) Description 07/21/2024 11:40 AM EST Laboratory Laboratory [facility], [place] [address] [facility] [place] [phone] [facility] [address] [facility] [place] [address] Prediabetes; HTN, goal below 150/90; LUIS (obstructive sleep apnea); Pure hypercholesterolemia; ILD (interstitial lung disease) ([facility]); SIMS (nonalcoholic steatohepatitis); Gastroesophageal reflux disease with esophagitis without hemorrhage; Age-related osteoporosis without current pathological fracture; Monoallelic mutation of KCNQ1 gene; Methylenetetrahydrofol ate reductase (MTHFR) deficiency ([facility]); History of pulmonary embolism; Sacroiliitis, not elsewhere classified ([facility]) Allergies Active Allergy Reactions Criticality Noted Date [...] as of this encounter (statuses as of 07/21/2024) Medications Folic Acid 1 MG Oral TabletIndications:M [...] needed. 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 Increased risk for Inherited Arrhythmias. Please click [...] as of this encounter (statuses as of 07/21/2024) Resolved Problems Problem Noted Date Diagnosed Date [...] Overview (02/21/2018): 02/14/18 While on vaction in [place] Facial laceration 02/21/2018 06/27/2021 Overview (02/21/2018): 02/14/18 While on vaction in [place] Closed fracture of nasal bones 02/21/2018 06/27/2021 Overview (02/21/2018): 02/14/18 While on vaction in [place] Fall on or from sidewalk curb 02/21/2018 03/13/2018 Overview (02/21/2018): 02/14/18 While on vaction in [place] History of nonmelanoma skin cancer 06/12/2017 12/20/2017 Overview (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 12/02 Trochanteric bursitis of right hip 05/16/2017 12/20/2017 Hx of non anemic vitamin B12 deficiency 04/02/2017 12/20/2017 History of laminectomy 07/26/201612/20 Dyslipidemia 12/24/2015 07/10/2024 HTN, goal below 150/90 12/24/201508/21 Bronchospasm, exercise-induced 10/07/2012 06/02/2016 Genetic Sleep Disorder Resea [facility] Other*[id number] 10/19/2011 01/20/2016 Other pulmonary embolism and infarction [...] as of this encounter (statuses as of 07/21/2024) Immunizations Name Administration Dates Next Due COVID-19 [...] 08/14/2024 1:00 PM EST Office Visit Allergy/Immunology [facility] [address] [place], [place] [address] Precious Cleaning PA-C [address] [place] [address] 09/09/2024 3:00 PM EDT Office Visit Urology, [facility] [address] [facility] [place] [address] Salvador Mireles MD [address] [place] [address] 09/18/2024 2:30 PM EDT Nurse Only [place]illary [address] [place] [address] [address] [place] [address] [place], Nurse Annual Wellness [place] [address] [place] [address] 11/05/2024 8:00 AM EDT Office Visit [facility] [phone] Karyn Garcia CRNP [address] [facility] [place], [place] [address] 12/23/2024 2:30 PM EDT Office Visit Sleep Disorders Ctr [facility] 132 [facility] [place] [phone] Edilma Brown CRNP [address] [facility] [place] [address] 01/09/2025 2:40 PM EDT Office Visit Family Practice [address], [place] [address] [place] [address] Jcarlos Laureano PA-C [address] [place] [address] 01/21/2025 4:15 PM EDT Imaging Radiology [facility] 1st [facility] 132 [place] [address] 02/04/2025 12:50 PM EDT Office Visit Dermatology [facility], [place] [address] [place] [address] Amy Mckeon PA-C [address] [facility] [place] [address] Pending Results Name Type Priority Associated Diagnoses Date /Time LIPID PANEL WITH DIRECT LDL IF TG IS HIGH Lab Routine Prediabetes HTN, goal below 150/90 LUIS (obstructive sleep apnea) Pure hypercholesterolemia ILD (interstitial lung disease) (HCC) SIMS (nonalcoholic steatohepatitis) Gastroesophageal reflux disease with esophagitis without hemorrhage Age-related osteoporosis without current pathological fracture 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 (HCC) History of pulmonary embolism Sacroiliitis, not elsewhere classified (HCC) 07/21/2024 11:39 AM EST TSH WITH FREE T4 IF INDICATED Lab Routine Prediabetes HTN, goal below 150/90 LUIS (obstructive sleep apnea) Pure hypercholesterolemia ILD (interstitial lung disease) (HCC) SIMS (nonalcoholic steatohepatitis) Gastroesophageal reflux disease with esophagitis without hemorrhage Age-related osteoporosis without current pathological fracture 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 (HCC) History of pulmonary embolism Sacroiliitis, not elsewhere classified (HCC) 07/21/2024 11:39 AM EST CBC WITH WBC DIFFERENTIAL AND ANEMIA REFLEX WORKUP Lab Routine Prediabetes HTN, goal below 150/90 LUIS (obstructive sleep apnea) Pure hypercholesterolemia ILD (interstitial lung disease) (HCC) SIMS (nonalcoholic steatohepatitis) Gastroesophageal reflux disease with esophagitis without hemorrhage Age-related osteoporosis without current pathological fracture 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 (HCC) History of pulmonary embolism Sacroiliitis, not elsewhere classified (HCC) 07/21/2024 11:39 AM EST COMPREHENSIVE METABOLIC PANEL Lab Routine Prediabetes HTN, goal below 150/90 LUIS (obstructive sleep apnea) Pure hypercholesterolemia ILD (interstitial lung disease) (HCC) SIMS (nonalcoholic steatohepatitis) Gastroesophageal reflux disease with esophagitis without hemorrhage Age-related osteoporosis without current pathological fracture 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 (HCC) History of pulmonary embolism Sacroiliitis, not elsewhere classified (HCC) 07/21/2024 11:39 AM EST HEMOGLOBIN A1C Lab Routine Prediabetes HTN, goal below 150/90 LUIS (obstructive sleep apnea) Pure hypercholesterolemia ILD (interstitial lung disease) (HCC) SIMS (nonalcoholic steatohepatitis) Gastroesophageal reflux disease with esophagitis without hemorrhage Age-related osteoporosis without current pathological fracture 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 (HCC) History of pulmonary embolism Sacroiliitis, not elsewhere classified (HCC) 07/21/2024 11:39 AM EST ANEMIA CBC Lab Routine Prediabetes HTN, goal below 150/90 LUIS (obstructive sleep apnea) Pure hypercholesterolemia ILD (interstitial lung disease) (HCC) SIMS (nonalcoholic steatohepatitis) Gastroesophageal reflux disease with esophagitis without hemorrhage Age-related osteoporosis without current pathological fracture 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 (HCC) History of pulmonary embolism Sacroiliitis, not elsewhere classified (HCC) 07/21/2024 11:39 AM EST DIFFERENTIAL, AUTOMATED Lab Routine Prediabetes HTN, goal below 150/90 LUIS (obstructive sleep apnea) Pure hypercholesterolemia ILD (interstitial lung disease) (HCC) SIMS (nonalcoholic steatohepatitis) Gastroesophageal reflux disease with esophagitis without hemorrhage Age-related osteoporosis without current pathological fracture 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 (HCC) History of pulmonary embolism Sacroiliitis, not elsewhere classified (HCC) 07/21/2024 11:39 AM EST ANEMIA REFLEX CHEMISTRY HOLD Lab Routine Prediabetes HTN, goal below 150/90 LUIS (obstructive sleep apnea) Pure hypercholesterolemia ILD (interstitial lung disease) (HCC) SIMS (nonalcoholic steatohepatitis) Gastroesophageal reflux disease with esophagitis without hemorrhage Age-related osteoporosis without current pathological fracture 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 (HCC) History of pulmonary embolism Sacroiliitis, not elsewhere classified (HCC) 07/21/2024 11:39 AM EST Health Maintenance Due Date Last Done Comments [...] D LEVEL ONCE IN A LIFETIME-USE SMARTSET# [id number] Completed 04/30/2023, 12/21/2021, 09/13/2020, Additional history exists [...] as of this encounter Visit Diagnoses Diagnosis Prediabetes Other abnormal glucose HTN, goal below 150/90 LUIS (obstructive sleep apnea) Obstructive sleep apnea (adult) (pediatric) Pure hypercholesterolemia ILD (interstitial lung disease) (HCC) Postinflammatory pulmonary fibrosis SIMS (nonalcoholic steatohepatitis) Other chronic nonalcoholic liver disease Gastroesophageal reflux disease with esophagitis without hemorrhage Age-related osteoporosis without current pathological fracture 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
--- OUTSIDE RECORDS SUMMARY | 2024-08-25 08:14 | External Medical Summary | Summary of Care ---
Author Name Unknown Organization [facility] Address [address] [facility] [place] [address] Phone [phone] Care Team Providers Care Marble Ceiling Installer Name Role Phone Jcarlos Mcpherson PA-C Primary Care Provide r Reason for Visit * Reason Comments Medication Refill Encounter Details Date Type Department Care Team (Late st Contact Info) Description 08/15/2024 Refill Family Practice [facility], [place] [address] [facility] [place] [id number] Jcarlos Mcpherson PA-C [address] [place] [address] MTHFR mutation Allergies Active Allergy Reactions Criticality Noted Date [...] as of this encounter (statuses as of 08/15/2024) Medications Albuterol Sulfate HFA 108 (90 Base) [...] needed. Medical Marijuana Capsules Active Nystatin-Triamcinol one 742899-7.1 UNIT/GM-% External Cream (Mycolog)Indication s:Yeast infection Apply [...] BY MOUTH EVERY DAY 100 Tablet 3 08/15/19 25 Active Folic Acid 1 MG Oral TabletIndications:M THFR mutation TAKE ONE TABLET BY MOUTH EVERY DAY 90 Tablet 3 4 1:40 PM EST 08/27/19 24 025 Discontin ued(Refil l) documented as of this encounter (statuses as of 08/15/2024) Active Problems Problem Noted Date Diagnosed Date Mild persistent asthma without complication 06/25 Impingement syndrome of left shoulder 09/05/2022 Sacroiliitis, not elsewhere classified 3 Pure hypercholesterolemia 06/29/2022 Primary open-angle glaucoma, bilateral, mild sta ge 05/04/2022 Morbid obesity 05/04/2022 Monoallelic mutation of KCNQ1 gene 12/15/2021 Overview (12/15/2021): likely pathogenic KCNQ1 gene variant (c.1081 C>T, p.(Q361*)) detected via [email or web address]. Increased risk for Inherited Arrhythmias. Please click [...] as of this encounter (statuses as of 08/15/2024) Resolved Problems Problem Noted Date Diagnosed Date [...] Overview (02/21/2018): 02/14/18 While on vaction in [place] Facial laceration 02/21/2018 06/27/2021 Overview (02/21/2018): 02/14/18 While on vaction in [place] Closed fracture of nasal bones 02/21/2018 06/27/2021 Overview (02/21/2018): 02/14/18 While on vaction in [place] Fall on or from sidewalk curb 02/21/2018 03/13/2018 Overview (02/21/2018): 02/14/18 While on vaction in [place] History of nonmelanoma skin cancer 06/12/2017 12/20/2017 Overview (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 12/02 Trochanteric bursitis of right hip 05/16/2017 12/20/2017 Hx of non anemic vitamin B12 deficiency 04/02/2017 12/20/2017 History of laminectomy 07/26/201612/20 Dyslipidemia 12/24/2015 07/10/2024 HTN, goal below 150/90 12/24/201508/21 Bronchospasm, exercise-induced 10/07/2012 06/02/2016 Genetic Sleep Disorder Resea [facility] Other*[id number] 10/19/2011 01/20/2016 Other pulmonary embolism and infarction [...] as of this encounter (statuses as of 08/15/2024) Immunizations Name Administration Dates Next Due COVID-19 [...] No 09/12/2023 Does the household have a [facility] source of income? (Household - for ages [...] Job Start Date Job End Date retired /[place] [employer] Not on file Not on file Not on f ile documented as of this encounter Miscellaneous Notes * Telephone Encounter - Randall Quevedo, [facility] - 08/15/2024 2:15 PM ESTSigned Prescriptions: Disp Refills Folic Acid 1 MG Oral Tablet 100 Ta*3 Sig: TAKE ONE TABLET BY MOUTH EVERY DAYAuthorizing Provider: JCARLOS MCPHERSON User: RANDALL QUEVEDO documented in this encounter Plan of Treatment Upcoming Encounters Date Type Department Care Team (Late st Contact Info) Description 08/20/2024 4:00 PM EST [facility] 200 [facility] [place] [address] Precious Cleaning PA-C [address] [facility] [place] [address] 09/09/2024 3:00 PM EDT Office Visit Urology, [facility] 132 [facility] [place] [address] Salvador Mireles MD [address] [place] [address] 09/18/2024 2:30 PM EDT Nurse Only Ancillary [address], [place] [address] [place] [address] [place], Nurse Annual Wellness Cold [address] [place] [address] 11/05/2024 8:00 AM EDT Office Visit Rheumatology [facility] [address] [place] [phone] Karyn Garcia CRNP [address] [place] [address] [place] [address] 12/23/2024 2:30 PM EDT Office Visit Sleep Disorders Ctr [facility] 132 [facility] [place] [phone] Edilma Brown CRNP 132 [facility] [place] [address] 12/23/2024 3:30 PM EDT Office Visit Cardiology, [facility] [address] [facility] [place] [address] Nevin Byrne PA-C [address] [place] [id number] 01/09/2025 2:40 PM EDT Office Visit Family Practice [address], [place] [address] [place] [address] Jcarlos Mcpherson PA-C [address] [place] [address] 01/21/2025 4:15 PM EDT Imaging Radiology [facility] 1st [facility] [address] [facility] [place] [phone] 02/04/2025 12:50 PM EDT Office Visit Dermatology [address], [place] [address] [place] [address] Amy Mckeon PA-C [address] [place] [address] Health Maintenance Due Date Last Done Comments [...] D LEVEL ONCE IN A LIFETIME-USE SMARTSET# [id number] Completed 04/30/2023, 12/21/2021, 09/13/2020, Additional history exists [...] as of this encounter Visit Diagnoses Diagnosis MTHFR mutation Disturbances of sulphur-bearing amino-acid metabolism documented in this encounter Care Teams Marble Ceiling Installer Relationship Specialty Start Date End Date Jcarlos Mcpherson PA-C [address] [facility] [place] [address] PCP - General Physician Account Supervisor 07/10/23 documented as of this encounter
--- OUTSIDE RECORDS SUMMARY | 2024-08-25 08:15 | External Medical Summary | Summary of Care ---
Author Name Unknown Organization [facility] Address [address] [facility] [address] Phone [phone] Care Team Providers Care Wheat Farmer Name Role Phone Jcarlos Laureano PA-C Primary Care Provide r Encounter Details Date Type Department Care Team (Late st Contact Info) Description 06/19/2024 Telephone Rheumatology [facility] [address] [place] [address] Smith Daniels MD [address] [place] [address] Allergies Active Allergy Reactions Criticality Noted Date [...] as of this encounter (statuses as of 06/20/2024) Medications Folic Acid 1 MG Oral TabletIndications:M [...] needed. Medical Marijuana Capsules Active Nystatin-Triamcinol one 020042-1.1 UNIT/GM-% External Cream (Mycolog)Indication s:Yeast infection Apply [...] MINUTES AFTER TAKING TABLET 15 Tablet 1 04/11/2024 7:14 AM EDT 01/21/20 24 025 Active Estradiol 0.1 MG/GM Vaginal Cream (Estrace)Indication [...] 04/08/2024 8:47 AM EDT 04/07/20 24 Active Diclofenac Sodium 1 % External Gel (Voltaren)Indicatio ns:Lumbar spinal stenosis Apply topically to affected area 4 times a day as needed for Pain. Apply to affected areas, back and hips, 4 times a day as needed for pain. 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 Increased risk for Inherited Arrhythmias. Please click [...] as of this encounter (statuses as of 06/20/2024) Resolved Problems Problem Noted Date Diagnosed Date [...] Overview (02/21/2018): 02/14/18 While on vaction in [place] Facial laceration 02/21/2018 06/27/2021 Overview (02/21/2018): 02/14/18 While on vaction in [place] Closed fracture of nasal bones 02/21/2018 06/27/2021 Overview (02/21/2018): 02/14/18 While on vaction in [place] Fall on or from sidewalk curb 02/21/2018 03/13/2018 Overview (02/21/2018): 02/14/18 While on vaction in [place] History of nonmelanoma skin cancer 06/12/2017 12/20/2017 Overview (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 12/02 Trochanteric bursitis of right hip 05/16/2017 12/20/2017 Hx of non anemic vitamin B12 deficiency 04/02/2017 12/20/2017 History of laminectomy 07/26/201612/20 HTN, goal below 150/90 12/24/201508/21 Bronchospasm, exercise-induced 10/07/2012 06/02/2016 Genetic Sleep Disorder Resea [facility] Other*[id number] 10/19/2011 01/20/2016 Other pulmonary embolism and infarction [...] as of this encounter (statuses as of 06/20/2024) Immunizations Name Administration Dates Next Due COVID-19 [...] No 09/12/2023 Does the household have a [facility] source of income? (Household - for [...] Job Start Date Job End Date retired /[employer] Not on file Not on file Not on f ile documented as of this encounter Plan of Treatment Upcoming Encounters Date Type Department Care Team (Late st Contact Info) Description 07/10/2024 12:40 PM EST Office Visit Family Practice [facility] [place] [address] [place] [address] Jcarlos Laureano PA-C [address] [place] [address] 08/14/2024 1:00 PM EST Office Visit Allergy/Immunology [place] [address] [place] [address] Precious Cleaning PA-C [address] [place] [address] 09/09/2024 3:00 PM EDT Office Visit Urology, [facility] 132 [facility] [place] [address] Salavdor Mireles MD [address] [place] [address] 09/18/2024 2:30 PM EDT Nurse Only Ancillary [address], [place] [address] [place] [address] [place], Nurse Annual Wellness [facility] [address] 11/05/2024 8:00 AM EDT Office Visit Rheumatology [place] [address] [facility] [place] [address] Karyn Garcia CRNP [facility] [place] [address] 12/23/2024 2:30 PM EDT Office Visit [facility] Disorders Ctr [facility] [place] [phone] Edilma Brown CRNP [address] [place] [address] 02/04/2025 12:50 PM EDT Office Visit Dermatology [facility], [place] [address] [place] [address] Amy Mckeon PA-C [address] [place] [address] Health Maintenance Due Date Last Done Comments [...] D LEVEL ONCE IN A LIFETIME-USE SMARTSET# [id number] Completed 04/30/2023, 12/21/2021, 09/13/2020, Additional history exists [...] filedocumented as of this encounter Care Teams Wheat Farmer Relationship Specialty Start Date End Date Jcarlos Laureano PA-C [facility] [place] [phone] PCP - General Physician Inspector Optical Instrument 07/10/23 documented as of this encounter
--- OUTSIDE RECORDS SUMMARY | 2024-08-25 08:15 | External Medical Summary | Summary of Care ---
Author Name Unknown Organization [facility] Address [address] [place] [place] [address] Phone [phone] Care Team Providers Care Refrigeration Houseman Name Role Phone Jcarlos Mcpherson PA-C Primary Care Provide r Reason for Visit * Reason Comments Allergy New Pt * Evaluate & Treat - Unlimited Visits (Within 30 days (routine)) - Closed Specialty Diagnoses / Procedures Referred By Christie batista Referred To Contact Allergy & Immunology / Allergy and Immunology Diagnoses Voice disorder Roxi Bueno DO Phone: tel: fax: Referral ID Status Reason Start Date Expiration Date V isits Requested Visits Authorized [id number] Closed Specialty Services Required 12/08/[phone] Encounter Details Date Type Department Care Team (Late st Contact Info) Description 05/14/2024 1:00 PM EST Office Visit Allergy/Immunology [facility] [address] [place] [address] Michael Vieira MD [address] [place] [address] Rhinitis, nonallergic*; Postnasal drip; Mild persistent asthma without complication Allergies Active Allergy Reactions Criticality Noted Date [...] as of this encounter (statuses as of 05/14/2024) Medications Folic Acid 1 MG Oral TabletIndications:M THFR mutation TAKE ONE TABLET BY MOUTH EVERY DAY 90 Tablet 3 02/19/2024 10:57 AM EDT 08/27/19 24 025 Active Albuterol Sulfate HFA [...] mouth in the morning. 100 Tablet 3 02/12/2024 11:29 AM EDT 08/31/19 24 Active Zinc 50 MG Oral [...] needed. Medical Marijuana Capsules Active Nystatin-Triamcinol one 201736-3.1 UNIT/GM-% External Cream (Mycolog)Indication s:Yeast infection Apply to affected area two times per day for 1 week 15 g 2 11/22/19 24 Active Latanoprost 0.005 % Ophthalmic Solution (Xalatan) Instill 1 Drop into both eyes at bedtime. 10 mL 3 02/11/2024 11:34 AM EDT 11/23/19 24 Active Tamsulosin HCl 0.4 MG Oral Capsule (Flomax) TAKE ONE CAPSULE BY MOUTH EVERY MORNING 90 Capsule 3 02/27/2024 8:02 AM EDT 11/29/19 24 025 Active Omeprazole 40 MG Oral Capsule Delayed Release (PriLOSEC)Indicatio ns:Gastroesophageal reflux disease with esophagitis without hemorrhage Take 1 Capsule by mouth in the morning. 90 Capsule 2 03/19/2024 2:05 PM EDT 12/14/19 24 Active DULoxetine HCl 60 MG Oral Capsule Delayed Release Particles (Cymbalta)Indicatio ns:HTN, goal below 150/90 TAKE ONE CAPSULE BY MOUTH EVERY DAY DO NOT CRUSH, CUT OR CHEW 90 Capsule 1 03/18/2024 1:47 PM EDT 12/15/19 24 025 Active CPAP every night at bedtime. Active [...] 1 Capsule before bedtime. 270 Capsule 3 02/27/2024 8:02 AM EDT 02/26/20 24 Active Sulfamethoxazole-Tr imethoprim 400-80 MG [...] skin once a week. 9 mL 1 03/06/2024 8:21 AM EDT 03/01/20 24 Active Anoro Ellipta 62.5-25 MCG/ACT Inhalation Aerosol Powder Breath Activated (umeclidinium-vilan terol) inhale one puff by mouth every day 180 Each 1 03/20/2024 1:33 PM EDT 03/19/20 24 Active Apixaban 5 MG Oral Tablet [...] nostril in the morning. 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 Increased risk for Inherited Arrhythmias. Please click [...] as of this encounter (statuses as of 05/14/2024) Resolved Problems Problem Noted Date Diagnosed Date [...] Overview (02/21/2018): 02/14/18 While on vaction in [place] Facial laceration 02/21/2018 06/27/2021 Overview (02/21/2018): 02/14/18 While on vaction in [place] Closed fracture of nasal bones 02/21/2018 06/27/2021 Overview (02/21/2018): 02/14/18 While on vaction in [place] Fall on or from sidewalk curb 02/21/2018 03/13/2018 Overview (02/21/2018): 02/14/18 While on vaction in [place] History of nonmelanoma skin cancer 06/12/2017 12/20/2017 Overview (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 12/02 Trochanteric bursitis of right hip 05/16/2017 12/20/2017 Hx of non anemic vitamin B12 deficiency 04/02/2017 12/20/2017 History of laminectomy 07/26/201612/20 HTN, goal below 150/90 12/24/201508/21 Bronchospasm, exercise-induced 10/07/2012 06/02/2016 Genetic Sleep Disorder [facility] Other*[id number] 10/19/2011 01/20/2016 Other pulmonary embolism and infarction [...] as of this encounter (statuses as of 05/14/2024) Immunizations Name Administration Dates Next Due COVID-19 [...] No 09/12/2023 Does the household have a veterans affairs [facility] healthcare system[facility] source of income? (Household - for ages [...] Job Start Date Job End Date retired /[employer] Not on file Not on file Not on f ile documented as of this encounter Last Filed Vital Signs Vital Sign Reading Time Taken Comments Blood Pressure 140/88 05/14/2024 12:52 PM EST Pulse 78 05/14/2024 12:52 PM EST Temperature - - Respiratory Rate 18 05/14/2024 12:52 PM EST Oxygen Saturation 98% 05/14/2024 12:52 PM EST Inhaled Oxygen Concentration - - Weight 76.7 kg (169 lb 1.6 oz) 05/14/2024 12:52 PM EST Height 147.3 cm (4' 10") 05/14/2024 12:52 PM EST Body Mass Index 35.34 05/14/2024 12:52 PM EST documented in this encounter Patient Instructions * Patient Instructions* Michael Vieira MD - 05/14/2024 1:41 PM EST Nonallergic Trigger Avoidance Measures: Do not smoke, no smoking allowed in house or vehicles; avoid wood, coal burning stoves , and kerosene heaters; avoid strong smelling perfumes and perfumed cosmetics; do not use incense, potpourri, or scented candles, air fresheners in the home; avoid chemicalodors and weather changes (abrupt changes in temperature and humidity). If unavoidable, use a HEPA air-cleaning device. documented in this encounter Progress Notes * Michael Vieira MD - 05/14/2024 12:55 PM EST REASON FOR VISIT: Chief Complaint Patient presents with Allergy New Pt HPI: Missy is a pleasant 79-year-old female who presents to our office as a new patient after being referred by Roxi Bueno DO and Jcarlos Mcpherson PA-C for initial consultation of chronic rhinitis.The patient reports that over the course of the last 2 years, she has been experiencing excessive rhinorrhea in addition to postnasal drip which leads to constant throat clearing. She states that shealso fractured her nose 2 years ago but she was unsure if these symptoms began before that are after that. She also reports occasional sneezing and nasal congestion. She denies any itchy eyes or teary eyes but individuals had told her in the past that she has dry eyes. Triggers of these symptoms doinclude scented products and barometric pressure changes. She also states that these symptoms are worse with the act of eating and alcohol also makes her symptoms worse. From a treatment standpoint, she has tried Afrin, Mucinex, and Xyzal. She states that none of thesewere effective. She was not on Afrin for a long period of time and no longer takes it. She does occasionally do sinus rinses and this does provide some relief. The patient was also being followed by Pulmonology at [facility] for mild persistent asthma. She states that this all started when she was diagnosed with COVID in January of 2022 and she was hospitalized for 28 days during that time.. Since then she has been on Anoro Ellipta 1 puff once a day. She rarely needs her albuterol inhaler. She does state that she was diagnosed with COVID again in March of 2024, prompting a hospitalization for 4 days. REVIEW OF SYSTEMS Skin: No history of hives or atopic dermatitis. Eyes: negative Ears/Nose/Throat: nasal congestion, runny nose, post nasal drip, throat clearing Respiratory: asthma Cardiovascular: negative Gastrointestinal: No history of heartburn, dyspepsia, or acid reflux disease. 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 Closed fracture of nasal bones 02/21/2018 02/14/18 While on vaction in [place] Contusion of face 02/21/2018 02/14/18 While on vaction in [place] Coronary artery disease (CAD) excluded negative nuclear stress test Cyst of bursa right knee Esophageal reflux Facial laceration 02/21/2018 02/14/18 While on vaction in [place] Facial laceration 02/21/2018 02/14/18 While on vaction in [place] Fall on or from sidewalk curb 02/21/2018 02/14/18 While on vaction in [place] Fatty liver disease, nonalcoholic HTN, goal below [...] 03/2018 COLONOSCOPY, DIAGNOSTIC (RECTUM) 06/04/2019 diverticulosis / [facility] COLORECTAL CANCER SCREEN; NOT AT RISK 07/13/2010 normal colon exam repeat in 10 years EGD, FLEXIBLE, DIAGNOSTIC 09/03/2012 UPPER GI ENDOSCOPY DIAGNOSTIC performed by David Grimes MD at ENDOSCOPY [facility], no evidence of celiac disease or infection, symptoms most likely related to potassium supplements EGD, FLEXIBLE, DIAGNOSTIC 06/04/2019 acid reflux / [facility] EXC BREAST LESION RADMARK Right 11/09/2015 EXCISION OF BREAST LESION RADIOLOGICAL MARKER performed by Missy Cordero MD at OR [facility] dx right breast tissue 9:00, needle localized excision breast tissue with focal areas of fibrocystic changeand abudant mature adipose tissue - EXC BREAST LESION RADMARK Right 03/09/2020 EXCISION OF BREAST LESION RADIOLOGICAL MARKER performed by Haresh Moulton MD at OR [facility] IR FILTER PLACEMENT VENA CAVA 06/23/11 MISCELLANEOUS ORDER ([facility] ONLY) 2012 spinal fusion REMOVAL OF APPENDIX 1950 REMOVAL OF LINGUAL TONSIL 1948 REMOVE GALLBLADDER 1964 SACROILIAC JOINT INJECT W/GUIDANCE 03/01/2022 INJECTION SACROILIAC JOINT performed by Leonard Ocampo DO at OR [facility] SACROILIAC JOINT INJECT W/GUIDANCE 10/04/2022 INJECTION SACROILIAC JOINT performed by Leonard Ocampo DO at OR [facility] SACROILIAC JOINT INJECT W/GUIDANCE 01/10/2023 INJECTION SACROILIAC JOINT performed by Leonard Ocampo DO at OR [facility] SACROILIAC JOINT INJECT W/GUIDANCE 06/06/2023 INJECTION SACROILIAC JOINT performed by Leonard Ocampo DO at OR [facility] SACROILIAC JOINT INJECT W/GUIDANCE 03/26/2024 INJECTION SACROILIAC JOINT performed by Ness Lundy MD at OR [facility] SPINAL FUSION, LUMBAR, COMBINED 2012 Dr. Garcia TOTAL ABD HYSTERECTOMY W/WO REMOVAL OF TUBE(S) 1979 for fibroid TREAT NOSE FX W/STABILIZATION Right 02/28/2018 CLOSED TREATMENT NASAL FRACTURE WITH STABILIZATION performed by James De Jesus DO at OR [facility] Current Outpatient Medications Medication Sig Dispense Refill Folic Acid 1 MG Oral Tablet TAKE ONE TABLET BY MOUTH EVERY DAY 90 Tablet 3 Albuterol Sulfate HFA 108 (90 [...] dayas needed. (Patient not taking: Reported on 05/14/2024) Levocetirizine Dihydrochloride 5 MG Oral Tablet (Xyzal Allergy 24HR) Take 1 Tablet by mouth at bedtime. Diclofenac Sodium 1 % External Gel (Voltaren) Apply a small amount to the affected area daily as needed NATURAL SUPPLEMENT Take 1 Capsule by mouth daily as needed. Medical Marijuana Capsules Nystatin-Triamcinolone 828410-7.1 UNIT/GM-% External Cream (Mycolog) Apply to affected area two times per day for 1 week 15 g 2 Latanoprost 0.005 % Ophthalmic Solution (Xalatan) Instill 1 Drop into both eyes at bedtime. 10 mL 3 Tamsulosin HCl 0.4 MG Oral Capsule (Flomax) TAKE ONE CAPSULE BY MOUTH EVERY MORNING 90 Capsule 3 Omeprazole 40 MG Oral Capsule Delayed Release (PriLOSEC) Take 1 Capsule by mouth in the morning. 90Capsule 2 DULoxetine HCl 60 MG Oral Capsule Delayed Release Particles (Cymbalta) TAKE ONE CAPSULE BY MOUTH EVERY DAY DO NOT CRUSH, CUT OR CHEW 90 Capsule 1 CPAP every night at bedtime. Alendronate Sodium 70 MG Oral Tablet (Fosamax) [...] 1 Capsule before bedtime. 270 Capsule 3 Sulfamethoxazole-Trimethoprim 400-80 MG Oral Tablet (Bactrim) Take 1 Tablet by mouth in the morning. 90 Tablet 3 Ozempic (2 MG/DOSE) 8 MG/3ML Subcutaneous Solution Pen-injector (Semaglutide (2 MG/DOSE)) Inject 2 mg under the skin once a week. 9 mL 1 Anoro Ellipta 62.5-25 MCG/ACT Inhalation Aerosol Powder Breath Activated (umeclidinium-vilanterol) inhale one puff by mouth every day 180 Each 1 Apixaban 5 MG Oral Tablet (Eliquis) TAKE ONE TABLET BY MOUTH EVERY MORNING AND TAKE ONE TABLET BY MOUTH AT BEDTIME 200 Tablet 1 Diclofenac Sodium 1 % External Gel (Voltaren) Apply topically to affected area 4 times a day as needed for Pain. Apply to affected areas, back and hips, 4 times a day as needed for pain. 400 g 1 No current facility-administered medications for this visit. Allergies as of 05/14/2024 - Reviewed 05/14/2024 Allergen Reaction Noted Compazine Neuro complications (Please comment) and Other (Please comment) 04/04/2010 Naproxen sodium 01/25/2023 Adhesive tape 02/11/2020 Latex 01/25/2023 Levofloxacin 01/25/2023 Lovenox [enoxaparin sodium] 03/13/2018 Macrobid [nitrofurantoin] Nausea/vomiting 03/13/2018 Morphine Itching 09/02/2012 Penicillins 01/25/2023 Ibuprofen 01/25/2023 Family History Problem Relation Name Age of Onset Lymphoma Mother Heart Disorder Father age 91 Rheum arthritis Father Other (hemochromotosis) Sister Rheum arthritis Sister Other (hemochromotosis) Brother Rheum arthritis Brother Rheum arthritis Brother Rheum arthritis Brother Social History Socioeconomic History Marital status: Spouse name: Lemuel Number of children: 2 Years of education: 12 Highest education level: Not on file Occupational History Occupation: retired /[employer] Tobacco Use Smoking status: Former Current packs/day: 0.00 Average packs/day: 0.5 packs/day for 25.0 years (12.5 ttl pk-yrs) Types: Cigarettes Start date: 04/05/1965 Quit date: 04/05/1990 Years since quittin.1 Smokeless tobacco: Never Vaping Use Vaping status: Never Used Substance and Sexual Activity Alcohol use: Yes Alcohol/week: 2.0 standard drinks of alcohol Types: 2 12 oz of beer per week Drug use: Yes Frequency: 2.0 times per week Comment: Medical marijuana for sleep and pain, capsules Sexual activity: Not Currently Partners: Male Other Topics Concern Service Not Asked Blood Transfusions Not Asked Caffeine Concern Not Asked Occupational Exposure Not Asked Hobby Hazards Not Asked Sleep Concern Not Asked Stress Concern Not Asked Weight Concern Not Asked Special Diet Not Asked Back Care Not Asked Exercise Not Asked Bike Helmet Not Asked Seat Belt Yes Comment: some times Self-Exams Not Asked Social History Narrative Not on file Social Needs Financial Resource Strain: Low Risk (09/12/2023) Financial Resource Strain Do you have any trouble paying for your medications, or do you think you might in the future? (Adult - for ages 18 years and over): No Does your family have trouble paying for medicine? (Household - for ages 0-17 years): Not on file Food Insecurity: No Food Insecurity (09/12/2023) Food Insecurity Do you need food for this week? (Adult - for ages 18 years and over): No Are you able to get enough food for your family? (Household - for ages 0-17 years): Not on file Does your family need food this week? (Household - for ages 0-17 years): Not on file Do you always have enough food for your family? (Household - for ages 0-17 years): Not on file Transportation Needs: No Transportation Needs (09/12/2023) Transportation Needs Do you have trouble getting a ride to medical visits or work? (Adult - for ages 18 years and over):Never True Does your family have a hard time getting a ride to doctors visits? (Household - for ages 0-17 years): Not on file Has lack of transportation kept you from medical appointments, meetings, work, or from getting things needed for daily living? Check all that apply. (Adult - for ages 18 years and over): Not on file Do you (or your family) have trouble finding or paying for a ride (transportation)? (Household - for ages 0-17 years): Not on file Social Connections: Socially Integrated (09/12/2023) Social Connections How often do you feel lonely or isolated from those around you? (Adult - for ages 18 years and over): Rarely Housing Stability: Low Risk (09/12/2023) Housing Stability Do you currently live in a fdc or have no steady place to sleep at night? (Adult - for ages 18 years and over): No Do you think you are at risk of becoming homeless? (Adult - for ages 18 years and over): No Does your family worry about paying for your home or becoming homeless? (Household - for ages 0-17 years): Not on file Are you homeless or worried that you might be in the future? (Adult - for ages 18 years and over): Not on file Are you (or your family) homeless or worried that you might be in the future? (Household - for ages0-17 years): Not on file Social history: The patient currently lives in a two-story house with a hot water heating system. There is air conditioning in the living room and bedroom. The home has a basement that is unfinished and slightly damp with a dehumidifier. The home has no issues with cockroaches. She does not use any scented products in the home as it makes her symptoms worse. [place] Within her home, there are no pets. She currently is retired. BP 140/88 | Pulse 78 | Resp 18 | Ht 1.473 m (4' 10") | Wt 76.7 kg (169 lb 1.6 oz) | LMP (LMP Unknown) | SpO2 98% | BMI 35.34 kg/m | BSA 1.77 m PHYSICAL EXAM: GENERAL: No acute distress. HEAD AND FACE: No sinus tenderness noted EYES: EOMI, PERRLA; Conjunctiva- normal; Eyelids - normal EARS: TM's - clear NOSE:Pale mucosa; mild turbinate edema; no nasal polyps or mucopus; Septum - normal OROPHARYNX: Teeth and gums - normal; Mild erythema, mild cobblestoning; No lesions, exudates NECK: Supple; No thyroid enlargment or cervical adenopathy RESPIRATORY: Clear to A and P; No wheezes; Good air movement bilaterally; No intercostal retractions or accessory muscle use CARDIOVASCULAR: RRR; No gallops, rubs, clicks, or murmurs. GASTROINTESTINAL: Abdomen is soft and non-tender; BS - normal; No palpable masses or organomegaly LYMPHATIC: No significant adenopathy noted MUSCULOSKELETAL: No significant joint swelling, tenderness EXTREMITIES: No cyanosis, clubbing or peripheral edema SKIN: No evidence atopic dermatitis; no urticaria or angioedema; Normal skin quality NEUROLOGIC/PSYCHIATRIC: Mental status - Oriented x's 3; Mood and affect - normal OBJECTIVE DATA: 05/14/24: Prick skin testing to common environmental aeroallergens was performed in our office today and this revealed no evidence of sensitizations in the setting of a negative saline control and positive histamine control. ASSESSMENT AND PLAN: ICD-10-CM 1. Rhinitis, nonallergic J31.0 2. Postnasal drip R09.82 3. Mild persistent asthma without complication J45.30 In summary, Missy carries a diagnosis of chronic nonallergic rhinitis based upon her clinical history and negative skin testing today. We did review the various triggers of nonallergic rhinitis which includes drastic changes in the barometric pressure, drastic changes in temperature, and respiratoryirritants such as strong odors, perfumes, colognes, scented products, scented candles, incense, potpourri, exhaust fumes, chemicals, poor air quality, and smoke. She also has a component of gustatoryrhinitis which is a subset of chronic nonallergic rhinitis in which she has increased symptoms withthe act of eating. From a treatment standpoint, we do recommend that she have an air purifier with a HEPA filter within her bedroom as this has shown to be of benefit. In addition, oral antihistamines generally are notof much benefit in these patients. For now, we will start Flonase 2 sprays each nostril daily and this is to be preceded by use of a normal saline sinus rinse. Proper technique of a nasal spray whichshown to her today. Should she have a persistence of symptoms, consideration towards a nasal antihistamine spray such as Astelin or perhaps even ipratropium may be warranted in the future. In regards to her mild persistent asthma, we do recommend that she continue on Anoro Ellipta 1 puffonce a day and she was instructed to rinse out her mouth after each use. She will continue to follow up with Pulmonology at [facility]. She does have albuterol to be used 2 puffs every 4-6 hours on a as needed basis for any cough, wheezing, or shortness of breath. Should there be increased frequency of albuterol use, she will contact her freight claim investigator for further evaluation and management. Thank you very much for allowing myself to participate in the care of your patient. Please do not hesitate to contact our office should you have any questions or concerns. Michael Vieira MD Allergy/Immunology I spent a total of Greater than 55 mins (exact time 62 mins) on the date of service in preparation,delivery, and documentation of the care provided to Missy Weems excluding any time spent in the performance of separately billed services or time spent by another provider/QHP. (This note was completed using the dictation program Fluency Direct. As such, there may be misspellings, word substitutions, or other variations that should not change the essence of the clinical content of this encounter note.If there is need for further clarification, please direct questions to the provider listed above.) PCP: JCARLOS MCPHRESON [address] [place] [address] [phone] documented in this encounter Nursing Notes * Raisa Bellamy LPN - 05/14/2024 12:43 PM EST The pt has been properly identified by confirmation of name and date of . Pr present for allergy new pt. Pt states chronic sinus/nasal drainage. documented in this encounter Plan of Treatment Upcoming Encounters Date Type Department Care Team (Late st Contact Info) Description 07/10/2024 12:40 PM EST Office Visit [facility] [address] [place] [address] Jcarlos Mcpherson PA-C [address] [place] [address] 08/14/2024 1:00 PM EST Office Visit Allergy/Immunology [facility] [address] [facility] [id number] Precious Cleaning PA-C [address] [place] [address] 09/09/2024 3:00 PM EDT Office Visit Urology, [facility] [address] [place] [address] Salvador Mireles MD [address] [place] [address] 09/18/2024 2:30 PM EDT Nurse Only [address], [place] [address] [place] [address] [place] [address] [place] [address] 02/04/2025 12:50 PM EDT Office Visit Dermatology [address], [place] [address] [place] [address] Amy Mckeon PA-C [address] [place] [address] Health Maintenance Due Date Last Done Comments [...] D LEVEL ONCE IN A LIFETIME-USE SMARTSET# [id number] Completed 04/30/2023, 12/21/2021, 09/13/2020, Additional history exists [...] Procedure Name Priority Date/Time Associated Diagnosis Comments ALLERGY SKIN TESTS, PERC W/PHYSICIAN INTERP Routine 05/14/2024 Rhinitis, nonallergic Postnasal drip Mild persistent asthma without complication documented in this encounter Results * ALLERGY SKIN TESTS, PERC W/PHYSICIAN INTERP (05/14/2024) mite mix skin test dog skin test 0/0 0 - 0 mm cat skin test 0/0 0 - 0 mm Alternaria SKin Test 0/0 0 - 0 mm Common [place] Mix Skin Test aspergillus Skin Test 0/0 0 - 0 mm AUREOB (PULLARIA) cladosporium Skin Test penicillium skin test 0/0 0 - 0 mm helminthosporium skin test 0/0 0 - 0 mm pigweed SKin Test moses's quarter Skin Test cocklebur skin test kenyan plantain skin test 0/0 0 - 0 mm scarlett skin test ragweed skin test 0/0 0 - 0 mm Comment:ragweed short tree mix skin test 0/0 0 - 0 mm Comment:tree mix #11 grass mix skin test negative control skin test 0/0 0 - 0 mm histamine skin test 04/18 0 - 0 mm maple skin test oak Skin test elm Skin Test birch SKin Test 0/0 0 - 0 mm hickory skin test OTHER 0/0 mm Comment:cedar, mountain OTHER 0/0 mm Comment:mulberry OTHER 0/0 mm Comment:hector grass OTHER 0/0 mm Comment:fanta grass OTHER 0/0 mm Comment:weed mix 2630 OTHER 0/0 mm Comment:hormodendrum cladosp orioides OTHER 0/0 mm Comment:DF OTHER 0/0 mm Comment:DP 05/14/2024 Michael Vieira MD MEDICINE Final Res ult documented in this encounter Visit Diagnoses Diagnosis Rhinitis, nonallergic- Primary Chronic rhinitis Postnasal drip Mild persistent asthma without complication Unspecified asthma documented in this encounter Care Teams Refrigeration Houseman Relationship Specialty Start Date End Date Jcarlos Mcpherson PA-C [address] [facility] [place] [id number] PCP - General Physician Pan Shaker 07/10/23 documented as of this encounter
--- OUTSIDE RECORDS SUMMARY | 2024-08-25 08:15 | External Medical Summary | Summary of Care ---
Author Name Unknown Organization [facility] Address [address] [facility] [place] [address] Phone [phone] Care Team Providers Care Forest Engineer Name Role Phone Jcarlos Laureano PA-C Primary Care Provide r Reason for Visit * Reason Comments Medication Refill Encounter Details Date Type Department Care Team (Late st Contact Info) Description 06/10/2024 Refill Family Practice [place], [place] [address] [place] [address] [place] [phone] Jcarlos Laureano PA-C [address] [place] [address] HTN, goal below 150/90 Allergies Active Allergy [...] as of this encounter (statuses as of 06/10/2024) Medications Folic Acid 1 MG Oral TabletIndications:M THFR mutation TAKE ONE TABLET BY MOUTH EVERY DAY 90 Tablet 3 4 1:40 PM EST 08/27/19 24 025 Active Albuterol Sulfate HFA 108 (90 Base) MCG/ACT Inhalation Aerosol Solution inhale 2 puffs by mouth every 6 hours as needed for shortness of breath or wheezing 54 g 1 4 8:22 AM EDT 08/28/19 24 Active Lisinopril 2.5 MG Oral Tablet (Prinivil)Indicatio ns:Prolonged QT interval,Abnormal genetic test,HTN, goal below 140/90,Dyslipidemia , goal LDL below 100 Take 1 Tablet by mouth in the morning. 100 Tablet 2 4 10:20 AM EDT 08/31/19 24 Active Metoprolol [...] needed. Medical Marijuana Capsules Active Nystatin-Triamcinol one 263064-3.1 UNIT/GM-% External Cream (Mycolog)Indication s:Yeast infection Apply [...] in the morning. 90 Capsule 2 4 2:05 PM EDT 12/14/19 24 Active CPAP every night at bedtime. Active Alendronate Sodium 70 MG Oral Tablet (Fosamax)Indication s:Age-related osteoporosis without current pathological fracture TAKE ONE TABLET BY MOUTH ONCE A WEEK WITH 8 OZ OF WATER 30 MINUTES BEFORE FIRST MEAL OF THE DAY. REMAIN UPRIGHT FOR 30 MINUTES AFTER TAKING TABLET 15 Tablet 1 4 7:14 AM EDT 01/21/20 24 025 Active Estradiol 0.1 MG/GM Vaginal Cream (Estrace)Indication s:Vaginal atrophy Apply one-half gram topically to affected area in the morning. 42.5 g 6 4 7:17 AM EST 02/11/20 24 Active Gabapentin [...] 4 10:45 AM EST 03/01/20 24 Active Anoro Ellipta 62.5-25 MCG/ACT Inhalation Aerosol Powder Breath Activated (umeclidinium-vilan terol) inhale one puff by mouth every day 180 Each 1 4 1:33 PM EDT 03/19/20 24 Active Apixaban 5 MG Oral Tablet (Eliquis)Indication s:HTN, goal below 150/90,Edema TAKE ONE TABLET BY MOUTH EVERY MORNING AND TAKE ONE TABLET BY MOUTH AT BEDTIME 200 Tablet 1 4 8:47 AM EDT 04/07/20 24 Active Diclofenac [...] CRUSH, CUT OR CHEW 90 Capsule 1 06/10/20 24 025 Active DULoxetine HCl 60 MG Oral Capsule Delayed Release Particles (Cymbalta)Indicatio ns:HTN, goal below 150/90 TAKE ONE CAPSULE BY MOUTH EVERY DAY DO NOT CRUSH, CUT OR CHEW 90 Capsule 1 4 1:47 PM EDT 12/15/19 24 024 Discontin ued(Refil l) documented as of this encounter (statuses as of 06/10/2024) Active Problems Problem Noted Date Diagnosed Date Impingement syndrome of left shoulder 09/05/2022 Sacroiliitis, not elsewhere classified 3 Pure hypercholesterolemia 06/29/2022 Primary open-angle glaucoma, bilateral, mild sta ge 05/04/2022 Morbid obesity 05/04/2022 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 Increased risk for Inherited Arrhythmias. Please click [...] as of this encounter (statuses as of 06/10/2024) Resolved Problems Problem Noted Date Diagnosed Date [...] exercise-induced 10/07/2012 06/02/2016 Genetic Sleep Disorder [facility] Other*[id number] 10/19/2011 01/20/2016 Other pulmonary embolism and infarction [...] as of this encounter (statuses as of 06/10/2024) Immunizations Name Administration Dates Next Due COVID-19 [...] No 09/12/2023 Does the household have a [facility] source of income? (Household - for [...] encounter Miscellaneous Notes * Telephone Encounter - Jelani Wood [facility] - 06/10/2024 5:18 PM EST Signed Prescriptions: Disp Refills DULoxetine HCl 60 MG Oral Capsule Delayed *90 Cap*1 Sig: TAKE ONE CAPSULE BY MOUTH EVERY DAY DO NOT CRUSH, CUT OR CHEWAuthorizing Provider: JCARLOS LAUREANO User: JELANI WOOD documented in this encounter Plan of Treatment Upcoming Encounters Date Type Department Care Team (Late st Contact Info) Description 07/10/2024 12:40 PM EST Office Visit Family Practice [address], [place] [address] [place] [phone] Jcarlos Laureano PA-C [address] [place] [phone] 08/14/2024 1:00 PM EST Office Visit [facility] [address] [facility] [place] [address] Precious Cleaning PA-C [address] [place] [address] 09/09/2024 3:00 PM EDT Office Visit Urology, [facility] [address] [facility] [place] [address] Salvador Mireles MD [address] [place] [id number] 09/18/2024 2:30 PM EDT Nurse Only Ancillary [address], [place] [address] [place] [phone] [place], Nurse Annual Wellness [facility] [address] [place] [address] 02/04/2025 12:50 PM EDT Office Visit Dermatology [address], [place] [address] [place] [address] Amy Mckeon PA-C [address] [place] [address] Health Maintenance Due Date Last Done Comments [...] D LEVEL ONCE IN A LIFETIME-USE SMARTSET# [id number] Completed 04/30/2023, 12/21/2021, 09/13/2020, Additional history exists [...] 150/90 documented in this encounter Care Teams Forest Engineer Relationship Specialty Start Date End Date Jcarlos Laureano PA-C [address] [place] [address] PCP - General Physician Molder Helper 07/10/23 documented as of this encounter
--- OUTSIDE RECORDS SUMMARY | 2024-08-25 08:15 | External Medical Summary | Summary of Care ---
Author Name Unknown Organization [facility] Address [address] [facility] [address] Phone [phone] Care Team Providers Care Medical Authorization Specialist Name Role Phone Jcarlos Laureano PA-C Primary Care Provide r Encounter Details Date Type Department Care Team (Late st Contact Info) Description 06/26/2024 Population Health External Data Unspecified Department Allergies [...] as of this encounter (statuses as of 07/01/2024) Medications Folic Acid 1 MG Oral TabletIndications:M [...] needed. 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 Increased risk for Inherited Arrhythmias. Please [...] as of this encounter (statuses as of 07/01/2024) Resolved Problems Problem Noted Date Diagnosed Date [...] Overview (02/21/2018): 02/14/18 While on vaction in [place] Facial laceration 02/21/2018 06/27/2021 Overview (02/21/2018): 02/14/18 While on vaction in [place] Closed fracture of nasal bones 02/21/2018 06/27/2021 Overview (02/21/2018): 02/14/18 While on vaction in [place] Fall on or from sidewalk curb 02/21/2018 03/13/2018 Overview (02/21/2018): 02/14/18 While on vaction in [place] History of nonmelanoma skin cancer 06/12/2017 12/20/2017 Overview (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 12/02 Trochanteric bursitis of right hip 05/16/2017 12/20/2017 Hx of non anemic vitamin B12 deficiency 04/02/2017 12/20/2017 History of laminectomy 07/26/201612/20 HTN, goal below 150/90 12/24/201508/21 Bronchospasm, exercise-induced 10/07/2012 06/02/2016 Genetic Sleep Disorder [facility] Other*[id number] 10/19/2011 01/20/2016 Other pulmonary embolism and infarction 06/28/2011 05/30/2012 Deep venous thrombosis of lower extremity 06/28/2011 05/30/2012 Medical home patient encounter 06/28/2011 07/17/2022 Dyslipidemia, goal LDL below 130 01/09/2011 12/24/2015 Trigger finger 04/15/2010 01/09/2011 Carcinoma in situ of other s pecified sites of skin 12/24/2015 Overview (04/04/2010): nose 2010 Acute cystitis 09/08/2011 Acute sinusitis 09/08/2011 Calculus of kidney 12/09/201 6 Esophageal reflux 04/02/2017 Arthritis of knee 04/02/2017 Overview (04/04/2010): right Cyst of bursa 12/24/2015 Overview (04/04/2010): right knee HTN, goal below 140/90 12/23 documented as of this encounter (statuses as of 07/01/2024) Immunizations Name Administration Dates Next Due COVID-19 [...] 12:40 PM EST Office Visit Family Practice [address] [place] [address] Jcarlos Laureano PA-C [address] [place] [address] 08/14/2024 1:00 PM EST Office Visit Allergy/Immunology [facility] [address] [place] [address] Precious Cleaning PA-C [address] [place] [address] 09/09/2024 3:00 PM EDT Office Visit Urology, [facility] [address] [facility] [place] [address] Salvador Mireles MD [address] [place] [address] 09/18/2024 2:30 PM EDT Nurse Only Ancillary [facility], [place] [address] [place] [address] [place], Nurse Annual Wellness [place] [address] [place] [address] 11/05/2024 8:00 AM EDT Office Visit Rheumatology [facility] [address] [place] [address] Karyn Garcia CRNP [address] [facility] [place] [address] 12/23/2024 2:30 PM EDT Office Visit Sleep Disorders Ctr [facility] [address] [facility] [place] [id number] Edilma Brown CRNP [address] [facility] [place] [address] 02/04/2025 12:50 PM EDT Office Visit Dermatology [facility], [place] [address] [place] [address] Amy Mckeon PA-C [address] [place] [address] Health Maintenance Due Date Last Done Comments [...] D LEVEL ONCE IN A LIFETIME-USE SMARTSET# [id number] Completed 04/30/2023, 12/21/2021, 09/13/2020, Additional history exists [...] filedocumented as of this encounter Care Teams Medical Authorization Specialist Relationship Specialty Start Date End Date Jcarlos Laureano PA-C [address] [facility] [place] [phone] PCP - General Physician Tinware Lithograph Press Operator 07/10/23 documented as of this encounter
--- OUTSIDE RECORDS SUMMARY | 2024-08-25 08:15 | External Medical Summary | Summary of Care ---
Author Name Unknown Organization [facility] Address [address] [place] [facility] [place] [address] Phone [phone] Care Team Providers Care District Representative Name Role Phone Jcarlos Laureano PA-C Primary Care Provide r Reason for Visit * Reason Onset Date Comments Appointment 03/13/2024 Encounter Details Date Type Department Care Team (Late st Contact Info) Description 03/13/2024 Telephone Access Center, [place] [address] [facility] *DO NOT REMOVE THIS DEPARTMENT* [place] [address] Services, Scheduling [address] [place] [address] Appointment Allergies Active Allergy Reactions Criticality Noted [...] as of this encounter (statuses as of 06/12/2024) Medications Folic Acid 1 MG Oral TabletIndications:M THFR mutation TAKE ONE TABLET BY MOUTH EVERY DAY 90 Tablet 3 05/19/2024 1:40 PM EST 4 025 Active Albuterol Sulfate HFA 108 (90 Base) MCG/ACT Inhalation Aerosol Solution inhale 2 puffs by mouth every 6 hours as needed for shortness of breath or wheezing 54 g 1 11/24/2023 8:22 AM EDT 4 Active Lisinopril 2.5 MG Oral Tablet (Prinivil)Indicatio ns:Prolonged QT interval,Abnormal genetic test,HTN, goal below 140/90,Dyslipidemia , goal LDL below 100 Take 1 Tablet by mouth in the morning. 100 Tablet 2 04/21/2024 10:20 AM EDT 4 Active Metoprolol Succinate ER 25 MG Oral Tablet Extended Release 24 Hour (toPROL XL)Indications:Prol onged QT interval,Abnormal genetic test,HTN, goal below 140/90,Dyslipidemia , goal LDL below 100 Take 1 Tablet by mouth in the morning. 100 Tablet 3 04/28/2024 6:29 AM EST 4 Active Rosuvastatin Calcium 5 MG Oral Tablet (Crestor)Indication s:Prolonged QT interval,Abnormal genetic test,HTN, goal below 140/90,Dyslipidemia , goal LDL below 100 Take 1 Tablet by mouth in the morning. 100 Tablet 3 05/20/2024 4:18 PM EST 4 Active Zinc 50 MG Oral Tablet [...] needed. Medical Marijuana Capsules Active Nystatin-Triamcinol one 691454-3.1 UNIT/GM-% External Cream (Mycolog)Indication s:Yeast infection Apply to affected area two times per day for 1 week 15 g 2 4 Active Latanoprost 0.005 % Ophthalmic Solution (Xalatan) Instill 1 Drop into both eyes at bedtime. 10 mL 3 05/19/2024 1:22 PM EST 4 Active Tamsulosin HCl 0.4 MG Oral Capsule (Flomax) TAKE ONE CAPSULE BY MOUTH EVERY MORNING 90 Capsule 3 05/26/2024 3:34 PM EST 4 025 Active Omeprazole 40 MG Oral Capsule Delayed Release (PriLOSEC)Indicatio ns:Gastroesophageal reflux disease with esophagitis without hemorrhage Take 1 Capsule by mouth in the morning. 90 Capsule 2 06/12/2024 10:50 AM EST 4 Active CPAP every night at bedtime. Active Alendronate Sodium 70 MG Oral Tablet (Fosamax)Indication s:Age-related osteoporosis without current pathological fracture TAKE ONE TABLET BY MOUTH ONCE A WEEK WITH 8 OZ OF WATER 30 MINUTES BEFORE FIRST MEAL OF THE DAY. REMAIN UPRIGHT FOR 30 MINUTES AFTER TAKING TABLET 15 Tablet 1 04/11/2024 7:14 AM EDT 4 025 Active Estradiol 0.1 MG/GM Vaginal Cream (Estrace)Indication s:Vaginal atrophy Apply one-half gram topically to affected area in the morning. 42.5 g 6 04/30/2024 7:17 AM EST 4 Active Gabapentin 400 MG Oral Capsule (Neurontin)Indicati ons:Sacroiliitis, not elsewhere classified (HCC) Take 1 Capsule by mouth in the morning and 1 Capsule at noon and 1 Capsule before bedtime. 270 Capsule 3 05/21/2024 6:29 PM EST 4 Active Sulfamethoxazole-Tr imethoprim 400-80 MG Oral Tablet (Bactrim) Take 1 Tablet by mouth in the morning. 90 Tablet 3 4 Active Ozempic (2 MG/DOSE) 8 MG/3ML Subcutaneous Solution Pen-injector (Semaglutide (2 MG/DOSE))Indication s:Class 2 severe obesity due to excess calories with serious comorbidity and body mass index (BMI) of 36.0 to 36.9 in adult (HCC) Inject 2 mg under the skin once a week. 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 Increased risk for Inherited Arrhythmias. Please click [...] as of this encounter (statuses as of 06/12/2024) Resolved Problems Problem Noted Date Diagnosed Date [...] Overview (02/21/2018): 02/14/18 While on vaction in [place] Facial laceration 02/21/2018 06/27/2021 Overview (02/21/2018): 02/14/18 While on vaction in [place] Closed fracture of nasal bones 02/21/2018 06/27/2021 Overview (02/21/2018): 02/14/18 While on vaction in [place] Fall on or from sidewalk curb 02/21/2018 03/13/2018 Overview (02/21/2018): 02/14/18 While on vaction in [place] History of nonmelanoma skin cancer 06/12/2017 12/20/2017 Overview (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 12/02 Trochanteric bursitis of right hip 05/16/2017 12/20/2017 Hx of non anemic vitamin B12 deficiency 04/02/2017 12/20/2017 History of laminectomy 07/26/201612/20 HTN, goal below 150/90 12/24/201508/21 Bronchospasm, exercise-induced 10/07/2012 06/02/2016 Genetic Sleep Disorder Resea [facility] Other*[id number] 10/19/2011 01/20/2016 Other pulmonary embolism and infarction [...] as of this encounter (statuses as of 06/12/2024) Immunizations Name Administration Dates Next Due COVID-19 [...] Job Start Date Job End Date retired /[employer] Not on file Not on file Not on f ile documented as of this encounter Miscellaneous Notes * Telephone Encounter - Bhavana Celestin OSA - 03/13/2024 11:19 AM EDT Reason for patient's call: Pt calling to reschedule her injection due to just getting out of [facility] with COVID and transportation for 03/14/[address] Lundy. Caller was transferred to Karen at the clinic. documented in this encounter Plan of Treatment Upcoming Encounters Date Type Department Care Team (Late st Contact Info) Description 07/10/2024 12:40 PM EST Office Visit Family Practice [address], [place] [address] [place] [address] Jcarlos Laureano PA-C [address] [place] [address] 08/14/2024 1:00 PM EST Office Visit Allergy/Immunology [facility] [address] [place] [address] Precious Cleaning PA-C [address] [place] [address] 09/09/2024 3:00 PM EDT Office Visit Urology, [facility] [address] [facility] [place] [address] Salvador Mireles MD [address] [facility] [place] [address] 09/18/2024 2:30 PM EDT Nurse Only Ancillary [address], [place] [address] [place] [address] [place], Nurse Annual Wellness [place] [address] [place] [address] 02/04/2025 12:50 PM EDT Office Visit Dermatology [address], [place] [address] [place] [address] Amy Mckeon PA-C [address] [place] [id number] Health Maintenance Due Date Last Done Comments Zoster Vaccines (2 of 3) 11/17/2013 09/22/2013 COVID-19 Vaccine (4 - season) 2024 05/10/2021, 08/25/2020, 07/28/2020 Adult Wellness Visit 09/12/2024 09/13/2023, 07/13/19 23 Depression Monitoring 09/12/2024 09/13/2023 DXA Scan 12/06/2024 12/06/2022, 11/23, 07/13/2020, Additional history exists DTap/Tdap Vaccines (3 - Td or Tdap) 12/23/2025 12/24/2015, 05/08/2006 Hepatitis C Screening Completed 10/07/2010 Pneumococcal Vaccine: 65+ Years Completed 10/15/2015, 04/04/2010 Albumin/Creatinine Ratio Discontinued 09/27/2022, 10/2022 VITAMIN D LEVEL ONCE IN A LIFETIME-USE SMARTSET# [id number] Completed 04/30/2023, 12/21/2021, 09/13/2020, Additional history exists [...] filedocumented as of this encounter Care Teams District Representative Relationship Specialty Start Date End Date Jcarlos Laureano PA-C [address] [facility] [place] [address] PCP - General Physician Continuous Crusher Operator 07/10/23 documented as of this encounter
--- OUTSIDE RECORDS SUMMARY | 2024-08-25 08:15 | External Medical Summary | Summary of Care ---
Author Name Unknown Organization [facility] Address [address] [address] Phone [phone] Care Team Providers Care Educational Director Name Role Phone Jcarlos Laureano PA-C Primary Care Provide r Reason for Visit * Reason Comments Routine Exam Would like routine l ab orders. Has been more fatigued in the mornings, not wanting to get up. Encounter Details Date Type Department Care Team (Late st Contact Info) Description 07/10/2024 12:40 PM EST Office Visit Family [facility] [place] [address] [place] [address] Jcarlos Laureano PA-C [address] [place] [address] Prediabetes*; HTN, goal below 150/90; LUIS (obstructive sleep apnea); Pure hypercholesterolemia; ILD (interstitial lung disease) ([facility]); Mild persistent asthma without complication; SIMS (nonalcoholic steatohepatitis); Gastroesophageal reflux disease with esophagitis without hemorrhage; Age-related osteoporosis without current pathological fracture; Monoallelic mutation of KCNQ1 gene; Methylenetetrahydrofo late reductase (MTHFR) deficiency ([facility]); History of pulmonary embolism; Presence of IVC filter; Sacroiliitis, not elsewhere classified ([facility]); Vaginal atrophy; Encounter for screening mammogram for breast cancer; Need for vaccination for zoster; Morbid obesity ([facility]); DIAN (generalized anxiety disorder); Primary open-angle glaucoma, bilateral, mild stage Allergies Active Allergy Reactions Criticality Noted Date [...] as of this encounter (statuses as of 07/10/2024) Medications Folic Acid 1 MG Oral TabletIndications:M [...] needed. Medical Marijuana Capsules Active Nystatin-Triamcinol one 582272-7.1 UNIT/GM-% External Cream (Mycolog)Indication s:Yeast infection Apply [...] 4 8:47 AM EDT 04/07/20 24 Active Fluticasone [...] days 1 Each 1 07/10/19 25 Active Diclofenac Sodium 1 % External Gel (Voltaren) Apply a small amount to the affected area daily as needed 025 Discontin ued(End of Procedure ) Diclofenac Sodium 1 % External Gel (Voltaren)Indicatio ns:Lumbar spinal stenosis Apply topically to affected area 4 times a day as needed for Pain. Apply to affected areas, back and hips, 4 times a day as needed for pain. 400 g 1 05/01/20 24 025 Discontin ued(Refil l) documented as of this encounter (statuses as of 07/10/2024) Active Problems Problem Noted Date Diagnosed Date Mild persistent asthma without complication 06/25 Impingement syndrome of left shoulder 09/05/2022 Sacroiliitis, not elsewhere classified 3 Pure hypercholesterolemia 06/29/2022 Primary open-angle glaucoma, bilateral, mild sta ge 05/04/2022 Morbid obesity 05/04/2022 Monoallelic mutation of KCNQ1 gene 12/15/2021 Overview (12/15/2021): likely pathogenic KCNQ1 gene variant (c.1081 C>T, p.(Q361*)) detected via [facility] Vaccines. Increased risk for Inherited Arrhythmias. Please click [...] as of this encounter (statuses as of 07/10/2024) Resolved Problems Problem Noted Date Diagnosed Date [...] exercise-induced 10/07/2012 06/02/2016 Genetic Sleep Disorder [facility] Other*[id number] 10/19/2011 01/20/2016 Other pulmonary embolism and infarction [...] as of this encounter (statuses as of 07/10/2024) Immunizations Name Administration Dates Next Due COVID-19 [...] Sign Reading Time Taken Comments Blood Pressure 134/72 07/10/2024 12:44 PM EST Pulse 74 07/10/2024 12:44 PM EST Temperature 36.1 C (97 F) 07/10/2024 12:44 PM EST Respiratory Rate 18 07/10/2024 12:44 PM EST Oxygen Saturation 98% 07/10/2024 12:44 PM EST Inhaled Oxygen Concentration - - Weight 77.7 kg (171 lb 6.4 oz) 07/10/2024 12:44 PM EST Height 147.3 cm (4' 10") 07/10/2024 12:44 PM EST Body Mass Index 35.82 07/10/2024 12:44 PM EST documented in this encounter Progress Notes * Jcarlos Laureano PA-C - 07/10/2024 12:51 PM EST Images from the original note were not included. History of Present Illness Missy Weems is a 79 year old female that presents for routine visit. Last labs from 12/2023 reviewed - A1c excellent at 5.5; LDL 62; BMP stable. Hx of prediabetes. Continues on ozempic. Has lost > 40 lbs. Follows with cardiology for history of prolonged QT, abnormal genetic testing, hypertension, and hyperlipidemia. Last visit 08/2023. History of genetic mutations. Has seen genetics. She denies chest pain or shortness of breath. Last stress test 01/2022 was negative for ischemia, EF 55-60%, no significant valve disease. - overall feels well/unchanged from cardiac standpoint. History of LUIS, using CPAP. Follows with sleep clinic. Blood pressure well controlled today. Chronic low back pain for years, hx of spinal surgery. Will occasionally get injections at [facility] which can give her relief for a few months. Also carries medical marijuana card. Follows with Urology for vaginal atrophy and recurrent UTIs. Follows regularly with pulmonary for hx of ILD and recurrent PE's. 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 Last visit 03/2024. Continues on eliquis. She also has history of IVC filter placed in 2011.Not a candidate for removal. - no change in SOB. States she can walk for about 6 minutes straight, unsure how far she can walk. History of GERD, doing well on PPI. Follows with rheumatology for osteoporosis. Continues on Fosamax. Mammogram 12/2023 normal. Will schedule repeat. 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 NATURAL SUPPLEMENT Take 1 Capsule by mouth daily as needed. Medical Marijuana Capsules Nystatin-Triamcinolone 327058-1.1 UNIT/GM-% External Cream (Mycolog) Apply to affected [...] by mouth in the morning. 90Capsule 2 CPAP every night at bedtime. Estradiol 0.1 MG/GM Vaginal Cream (Estrace) Apply [...] skin once a week. 9 mL 1 Apixaban 5 MG Oral Tablet (Eliquis) TAKE ONE TABLET BY MOUTH EVERY MORNING AND TAKE ONE TABLET BY MOUTH AT BEDTIME 200 Tablet 1 Fluticasone Propionate 50 MCG/ACT Nasal Suspension (Flonase) Administer 2 Sprays into each nostril in the morning. 48 g 3 DULoxetine HCl 60 MG Oral Capsule Delayed Release Particles (Cymbalta) TAKE ONE CAPSULE BY MOUTH EVERY DAY DO NOT CRUSH, CUT OR CHEW 90 Capsule 1 Anoro Ellipta 62.5-25 MCG/ACT Inhalation Aerosol Powder Breath Activated (umeclidinium-vilanterol) inhale one puff by mouth once daily 180 Each 1 Alendronate Sodium 70 MG Oral Tablet (Fosamax) TAKE ONE TABLET BY MOUTH ONCE A WEEK WITH 8 OZ OF WATER 30 MINUTES BEFORE FIRST MEAL OF THE DAY. REMAIN UPRIGHT FOR 30 MINUTES AFTER TAKING TABLET 15 Tablet 1 Diclofenac Sodium 1 % External Gel (Voltaren) Apply topically to affected area 4 times a day as needed for Pain. Apply to affected areas, back and hips, 4 times a day as needed for pain. 1050 g 3 Zoster Vac Recomb Adjuvanted 50 MCG/0.5ML Intramuscular Suspension Reconstituted (Shingrix) Inject 0.5 mL into a large muscle now and repeat dose in 60 to 180 days 1 Each 1 Folic Acid 1 MG Oral Tablet TAKE ONE TABLET BY MOUTH EVERY DAY 90 Tablet 3 Diclofenac Sodium 75 MG Oral Tablet Delayed Release (Voltaren) Take 1 Tablet by mouth 2 times a dayas needed. (Patient not taking: Reported on 05/14/2024) No current facility-administered medications for this visit. [...] 03/2018 COLONOSCOPY, DIAGNOSTIC (RECTUM) 06/04/2019 diverticulosis / [facility] COLORECTAL CANCER SCREEN; NOT AT RISK 07/13/2010 normal colon exam repeat in 10 years EGD, FLEXIBLE, DIAGNOSTIC 09/03/2012 UPPER GI ENDOSCOPY DIAGNOSTIC performed by David Grimes MD at [facility], no evidence of celiac disease or infection, symptoms most likely related to potassium supplements EGD, FLEXIBLE, DIAGNOSTIC 06/04/2019 acid reflux / [facility] EXC BREAST LESION RADMARK Right 11/09/2015 EXCISION OF BREAST LESION RADIOLOGICAL MARKER performed by Missy Cordero MD at OR [facility] dx right breast tissue 9:00, needle localized excision breast tissue with focal areas of fibrocystic changeand abudant mature adipose tissue - EXC BREAST LESION RADMARK Right 03/09/2020 EXCISION OF BREAST LESION RADIOLOGICAL MARKER performed by Haresh Moulton MD at OR [facility] IR FILTER PLACEMENT VENA CAVA 06/23/11 MISCELLANEOUS ORDER ([facility] ONLY) 2012 spinal fusion REMOVAL OF APPENDIX 1950 REMOVAL OF LINGUAL TONSIL 1948 REMOVE GALLBLADDER 1964 SACROILIAC JOINT INJECT W/GUIDANCE 03/01/2022 INJECTION SACROILIAC JOINT performed by Leonard Ocampo DO at OR [facility] SACROILIAC JOINT INJECT W/GUIDANCE 10/04/2022 INJECTION SACROILIAC JOINT performed by Leonard Ocampo DO at OR [facility] SACROILIAC JOINT INJECT W/GUIDANCE 01/10/2023 INJECTION SACROILIAC JOINT performed by Leonard Ocampo DO at OR [facility] SACROILIAC JOINT INJECT W/GUIDANCE 06/06/2023 INJECTION SACROILIAC JOINT performed by Leonard Ocampo DO at OR [facility] SACROILIAC JOINT INJECT W/GUIDANCE 03/26/2024 INJECTION SACROILIAC JOINT performed by Ness Lundy MD at OR [facility] SPINAL FUSION, LUMBAR, COMBINED 2012 Dr. Garcia TOTAL ABD HYSTERECTOMY W/WO REMOVAL OF TUBE(S) 1979 for fibroid TREAT NOSE FX W/STABILIZATION Right 02/28/2018 CLOSED TREATMENT NASAL FRACTURE WITH STABILIZATION performed by James De Jesus DO at OR [facility] Family History Problem Relation Name Age of [...] of education: 12 Occupational History Occupation: retired /[employer] Tobacco Use Smoking status: Former Current packs/day: 0.00 Average packs/day: 0.5 packs/day for 25.0 years (12.5 ttl pk-yrs) Types: Cigarettes Start date: 04/05/1965 Quit date: 04/05/1990 Years since quittin.2 Smokeless tobacco: Never Vaping Use Vaping status: Never Used Substance and Sexual Activity Alcohol use: Yes Alcohol/week: 2.0 standard drinks of alcohol Types: 2 12 oz of beer per week Drug use: Yes Frequency: 2.0 times per week Comment: Medical marijuana for sleep and pain, capsules Sexual activity: Not Currently Partners: Male Other Topics Concern Seat Belt Yes Comment: some times Social Needs Financial Resource Strain: Low Risk [...] Stability Do you currently live in a long-term or have no steady place to sleep [...] and vomiting. Endocrine: Negative. Genitourinary: Negative. Musculoskeletal: Positive for arthralgias and back pain. Skin: Negative. Negative for rash. Allergic/Immunologic: Negative. Neurological: Negative. Negative for syncope and light-headedness. Hematological: Negative. Psychiatric/Behavioral: Negative. Negative for dysphoric mood. The patient is not nervous/anxious. All other systems reviewed and are negative. Physical Exam BP 134/72 | Pulse 74 | Temp 97 F (36.1 C) (Temporal Artery) | Resp 18 | Ht 4' 10" (1.473 m) | Wt 171 lb 6.4 oz (77.7 kg) | LMP (LMP Unknown) | SpO2 98% | BMI 35.82 kg/m | BSA 1.78 m Physical Exam Vitals and nursing note [...] recent labs BMP results Recent Labs Units 01/07/24 0716 04/30/23 1443 09/27/22 1455 SODIUM - [facility] mmol/L 142 140 141 POTASSIUM - [facility] mmol/L 4.2 4.6 4.5 CHLORIDE - [facility] mmol/L 104 102 107 CO2 - [facility] mmol/L 26 27 25 CREATININE - [facility] mg/dL 0.6 0.7 0.8 BUN - [facility] mg/dL 19 16 23* Lipid panel results Recent Labs Units 01/07/24 0716 04/30/23 1443 09/27/22 1455 CHOLESTEROL - [facility] mg/dL 133 223* 148 HDL CHOLESTEROL - [facility] mg/dL 35* 42* 40* TRIGLYCERIDES - [facility] mg/dL 200* 207* 160 CBC results Recent Labs Units 04/30/23 1443 09/27/22 1455 09/06/22 0902 WBC K/uL 4.55 4.38 5.99 HGB g/dL 14.2 14.0 14.6 HCT % 45.6* 44.1 46.5* PLT K/uL 191 179 176 HbA1c results Recent Labs Units 01/07/24 0716 04/30/23 1443 09/27/22 1455 HEMOGLOBIN A1C - [facility] % 5.5 5.2 5.8* TSH results Recent Labs Units 04/30/23 1443 09/27/22 1455 TSH - [facility] uIU/mL 1.04 1.45 Vitamin D results Recent Labs Units 04/30/23 1443 25-HYDROXY VITAMIN D - [facility] ng/mL 41 Hepatic panel results Recent Labs Units 04/30/23 1443 09/27/22 1455 09/06/22 0902 PROTEIN - [facility] g/dL 6.3 6.5 6.3 BILIRUBIN, TOTAL - [facility] mg/dL 0.2 0.3 0.3 ALKALINE PHOSPHATASE - [facility] U/L 77 70 82 AST - [facility] U/L 21 23 26 ALT - [facility] U/L 19 31 34 Protein/cr ratio results No results for input(s): "PROCRRATIO" in the last [id number] hours. Assessment and Plan Prediabetes Most recent labs stable. Will update. - LIPID PANEL WITH DIRECT LDL IF TG IS HIGH; Future - TSH WITH FREE T4 IF INDICATED; Future - CBC WITH WBC DIFFERENTIAL AND ANEMIA REFLEX WORKUP; Future - COMPREHENSIVE METABOLIC PANEL; Future - HEMOGLOBIN A1C; Future HTN, goal below 150/90 Blood pressure well-controlled. - LIPID PANEL WITH DIRECT LDL IF TG IS HIGH; Future - TSH WITH FREE T4 IF INDICATED; Future - CBC WITH WBC DIFFERENTIAL AND ANEMIA REFLEX WORKUP; Future - COMPREHENSIVE METABOLIC PANEL; Future - HEMOGLOBIN A1C; Future LUIS (obstructive sleep apnea) Reports that she will wear the CPAP for about 3 hours per night before taking it off. Advise that this may be contributing to her fatigue. Encouraged better compliance. - LIPID PANEL WITH DIRECT LDL IF TG IS HIGH; Future - TSH WITH FREE T4 IF INDICATED; Future - CBC WITH WBC DIFFERENTIAL AND ANEMIA REFLEX WORKUP; Future - COMPREHENSIVE METABOLIC PANEL; Future - HEMOGLOBIN A1C; Future Pure hypercholesterolemia - LIPID PANEL WITH DIRECT LDL IF TG IS HIGH; Future - TSH WITH FREE T4 IF INDICATED; Future - CBC WITH WBC DIFFERENTIAL AND ANEMIA REFLEX WORKUP; Future - COMPREHENSIVE METABOLIC PANEL; Future - HEMOGLOBIN A1C; Future ILD (interstitial lung disease) (HCC) Breathing currently stable. Continue to follow with Pulmonary. - LIPID PANEL WITH DIRECT LDL IF TG IS HIGH; Future - TSH WITH FREE T4 IF INDICATED; Future - CBC WITH WBC DIFFERENTIAL AND ANEMIA REFLEX WORKUP; Future - COMPREHENSIVE METABOLIC PANEL; Future - HEMOGLOBIN A1C; Future SIMS (nonalcoholic steatohepatitis) - LIPID PANEL WITH DIRECT LDL IF TG IS HIGH; Future - TSH WITH FREE T4 IF INDICATED; Future - CBC WITH WBC DIFFERENTIAL AND ANEMIA REFLEX WORKUP; Future - COMPREHENSIVE METABOLIC PANEL; Future - HEMOGLOBIN A1C; Future Gastroesophageal reflux disease with esophagitis without hemorrhage Currently asymptomatic. - LIPID PANEL WITH DIRECT LDL IF TG IS HIGH; Future - TSH WITH FREE T4 IF INDICATED; Future - CBC WITH WBC DIFFERENTIAL AND ANEMIA REFLEX WORKUP; Future - COMPREHENSIVE METABOLIC PANEL; Future - HEMOGLOBIN A1C; Future Age-related osteoporosis without current pathological fracture Follows with Rheumatology. - LIPID PANEL WITH DIRECT LDL IF TG IS HIGH; Future - TSH WITH FREE T4 IF INDICATED; Future - CBC WITH WBC DIFFERENTIAL AND ANEMIA REFLEX WORKUP; Future - COMPREHENSIVE METABOLIC PANEL; Future - HEMOGLOBIN A1C; Future Monoallelic mutation of KCNQ1 gene - LIPID PANEL WITH DIRECT LDL IF TG IS HIGH; Future - TSH WITH FREE T4 IF INDICATED; Future - CBC WITH WBC DIFFERENTIAL AND ANEMIA REFLEX WORKUP; Future - COMPREHENSIVE METABOLIC PANEL; Future - HEMOGLOBIN A1C; Future Methylenetetrahydrofolate reductase (MTHFR) deficiency (HCC) - LIPID PANEL WITH DIRECT LDL IF TG IS HIGH; Future - TSH WITH FREE T4 IF INDICATED; Future - CBC WITH WBC DIFFERENTIAL AND ANEMIA REFLEX WORKUP; Future - COMPREHENSIVE METABOLIC PANEL; Future - HEMOGLOBIN A1C; Future History of pulmonary embolism Continue on anticoagulant. - LIPID PANEL WITH DIRECT LDL IF TG IS HIGH; Future - TSH WITH FREE T4 IF INDICATED; Future - CBC WITH WBC DIFFERENTIAL AND ANEMIA REFLEX WORKUP; Future - COMPREHENSIVE METABOLIC PANEL; Future - HEMOGLOBIN A1C; Future Presence of IVC filter Sacroiliitis, not elsewhere classified (HCC) - LIPID PANEL WITH DIRECT LDL IF TG IS HIGH; Future - TSH WITH FREE T4 IF INDICATED; Future - CBC WITH WBC DIFFERENTIAL AND ANEMIA REFLEX WORKUP; Future - COMPREHENSIVE METABOLIC PANEL; Future - HEMOGLOBIN A1C; Future - Diclofenac Sodium 1 % External Gel (Voltaren); Apply topically to affected area 4 times a day as needed for Pain. Apply to affected areas, back and hips, 4 times a day as needed for pain. Vaginal atrophy Follows with Gynecology. Encounter for screening mammogram for breast cancer - MAMMOGRAM SCREENING NAVA BILATERAL; Future Need for vaccination for zoster - Zoster Vac Recomb Adjuvanted 50 MCG/0.5ML Intramuscular Suspension Reconstituted (Shingrix); Inject 0.5 mL into a large muscle now and repeat dose in 60 to 180 days Wrap-Up Follow Up: Return in about 6 months (around 01/07/2025), or if symptoms worsen or fail to improve, for Return with AP. | For: Return with AP Time: I spent a total of 20-29 minutes (exact time 26 mins) on the date of service in preparation, delivery, and documentation of the care provided to Missy Weems excluding any time spent in the performance of separately billed services. documented in this encounter Nursing Notes * Mel Chicas LPN - 07/10/2024 12:46 PM EST Chief Complaint Patient presents with Routine Exam Would like routine lab orders. Has been more fatigued in the mornings, not wanting to get up. documented in this encounter Miscellaneous Notes * Pt Handout (on AVS) - Jcarlos Laureano PA-C - 07/10/2024 1:28 PM EST Images from the original note were not included. [id number] Interstitial Lung Disease (ILD) Interstitial lung disease (ILD) is a group of conditions that cause inflammation and scarring around the tiny air sacs (alveoli) in the lungs. The changes make it hard to take in oxygen. People with ILD may feel short of breath and tired. They may also have a dry cough and chest discomfort. Examples of ILD include these conditions: Asbestosis Hypersensitivity pneumonitis Idiopathic pulmonary fibrosis Sarcoidosis The diaphragm is a muscle below the lungs. It flattens to draw air in as you inhale, then rises as you exhale. Inside your lungs When you breathe, air travels in and out of your lungs through the windpipe (trachea), airways (bronchi), and branching airways (bronchioles). Oxygen (O2) and carbon dioxide (CO2) are exchanged in the tiny air sacs (alveoli). Oxygen passes from the alveoli to the blood vessels through the tissue called interstitium. The blood vessels then carry oxygen-rich blood to the rest of your body. Carbon dioxide moves back from the blood vessels to the alveoli. You then breathe it out. Alveoli are air sacs at the ends of bronchioles. Damaged alveoli supply less oxygen to the body. How lungs become damaged With ILD, the lungs have inflammation and scarring around the alveoli. The changes make it hard to take in oxygen. Normal interstitium Scarred interstitium Causes of ILD In most cases, ILD has no known cause. This is called idiopathic pulmonary fibrosis. Some known causes of ILD include: Dust from asbestos or silica, coal dust, gases, fumes, or poisons Some medicines Radiation therapy Certain lung infections Connective tissue disease, such as scleroderma, lupus, or rheumatoid arthritis Smoking. Smoking can cause ILD or make it much worse. Treatment and healthcare providers for ILD Treatment may include: Medicine Breathing methods Exercise Pulmonary rehab Supplemental oxygen Smoking cessation programs In some cases, you may need a lung transplant Your healthcare team may include: Primary care provider. This could be your family healthcare provider or teacher citizenship. Supplier Quality Engineer. This is a healthcare provider who specializes in treating lung problems. Respiratory therapist. This person gives treatment and support for people with lung disease. footwear factory worker. This person helps with your daily needs and family life, accessing community resources, counseling services, and stress management. Last Reviewed Date: 2021 00:00:00 [id number] [employer]. All rights reserved. This information is not intended as a substitute for professional medical care. Always follow your healthcare professional's instructions. documented in this encounter Plan of Treatment Upcoming Encounters Date Type Department Care Team (Late st Contact Info) Description 08/14/2024 1:00 PM EST Office Visit Allergy/Immunology Laisha Varela [place] [address] [facility] [place] [phone] Precious Cleaning PA-C [address] [facility] [place] [address] 09/09/2024 3:00 PM EDT Office Visit Urology, [facility] [address] [place] [phone] Salvador Mireles MD [address] [place] [address] 09/18/2024 2:30 PM EDT Nurse Only Ancillary [address], [place] [address] [place] [id number] [place], Nurse Annual Wellness [facility] [address] [place] [id number] 11/05/2024 8:00 AM EDT Office Visit Rheumatology [facility] [address] [phone] Karyn Garcia CRNP [address] [place] [address] [place] [address] 12/23/2024 2:30 PM EDT Office Visit Sleep Disorders Ctr [facility] [address] [place] [phone] Edilma Brown CRNP [address] [place] [address] 01/09/2025 2:40 PM EDT Office Visit Family Practice [address], [place] [address] [facility] [place] [phone] Jcarlos Laureano PA-C [address] [facility] [place] [id number] 01/21/2025 4:15 PM EDT Imaging Radiology [facility] [facility], [place] [address] [place] [phone] 02/04/2025 12:50 PM EDT Office Visit Dermatology [facility], [place] [address] [place] [id number] Amy [place] PA-C [address] [facility] [place] [address] Scheduled Orders Name Type Priority Associated Diagnoses Orde r Schedule LIPID PANEL WITH DIRECT LDL IF TG IS HIGH Lab Routine Prediabetes HTN, goal below 150/90 LUIS (obstructive sleep apnea) Pure hypercholesterolemia ILD (interstitial lung disease) (HCC) SIMS (nonalcoholic steatohepatitis) Gastroesophageal reflux disease with esophagitis without hemorrhage Age-related osteoporosis without current pathological fracture 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 (HCC) History of pulmonary embolism Sacroiliitis, not elsewhere classified (HCC) Expected: 07/10/2024, Expires: 07/10/2025 TSH WITH FREE T4 IF INDICATED Lab Routine Prediabetes HTN, goal below 150/90 LUIS (obstructive sleep apnea) Pure hypercholesterolemia ILD (interstitial lung disease) (HCC) SIMS (nonalcoholic steatohepatitis) Gastroesophageal reflux disease with esophagitis without hemorrhage Age-related osteoporosis without current pathological fracture 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 (HCC) History of pulmonary embolism Sacroiliitis, not elsewhere classified (HCC) Expected: 07/10/2024 (Approximate), Expires: 07/10/2025 CBC WITH WBC DIFFERENTIAL AND ANEMIA REFLEX WORKUP Lab Routine Prediabetes HTN, goal below 150/90 LUIS (obstructive sleep apnea) Pure hypercholesterolemia ILD (interstitial lung disease) (HCC) SIMS (nonalcoholic steatohepatitis) Gastroesophageal reflux disease with esophagitis without hemorrhage Age-related osteoporosis without current pathological fracture 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 (HCC) History of pulmonary embolism Sacroiliitis, not elsewhere classified (HCC) Expected: 07/10/2024 (Approximate), Expires: 07/10/2025 COMPREHENSIVE METABOLIC PANEL Lab Routine Prediabetes HTN, goal below 150/90 LUIS (obstructive sleep apnea) Pure hypercholesterolemia ILD (interstitial lung disease) (HCC) SIMS (nonalcoholic steatohepatitis) Gastroesophageal reflux disease with esophagitis without hemorrhage Age-related osteoporosis without current pathological fracture 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 (HCC) History of pulmonary embolism Sacroiliitis, not elsewhere classified (HCC) Expected: 07/10/2024 (Approximate), Expires: 07/10/2025 HEMOGLOBIN A1C Lab Routine Prediabetes HTN, goal below 150/90 LUIS (obstructive sleep apnea) Pure hypercholesterolemia ILD (interstitial lung disease) (HCC) SIMS (nonalcoholic steatohepatitis) Gastroesophageal reflux disease with esophagitis without hemorrhage Age-related osteoporosis without current pathological fracture 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 (HCC) History of pulmonary embolism Sacroiliitis, not elsewhere classified (HCC) Expected: 07/10/2024 (Approximate), Expires: 07/10/2025 MAMMOGRAM SCREENING NAVA BILATERAL Medical Imaging Routine Encounter for screening mammogram for breast cancer Expected: 01/21/2025 (Approximate), Expires: 08/10/2025 Health Maintenance Due Date Last Done Comments [...] D LEVEL ONCE IN A LIFETIME-USE SMARTSET# [id number] Completed 04/30/2023, 12/21/2021, 09/13/2020, Additional history exists [...] as of this encounter Visit Diagnoses Diagnosis Prediabetes- Primary Other abnormal glucose HTN, goal below 150/90 LUIS (obstructive sleep apnea) Obstructive sleep apnea (adult) (pediatric) Pure hypercholesterolemia ILD (interstitial lung disease) (HCC) Postinflammatory pulmonary fibrosis Mild persistent asthma without complication Unspecified asthma SIMS (nonalcoholic steatohepatitis) Other chronic nonalcoholic liver disease Gastroesophageal reflux disease with esophagitis without hemorrhage Age-related osteoporosis without current pathological fracture 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) History of pulmonary embolism Personal history of pulmonary embolism Presence of IVC filter Other postprocedural status Sacroiliitis, not elsewhere classified (HCC) Sacroiliitis, not elsewhere classified Vaginal atrophy Postmenopausal atrophic vaginitis Encounter for screening mammogram for breast cancer Need for vaccination for zoster Need for prophylactic vaccination and inoculation against other viral diseases Morbid obesity (HCC) Morbid obesity DIAN (generalized anxiety disorder) Generalized anxiety disorder Primary open-angle glaucoma, bilateral, mild stage documented in this encounter Care Teams Educational Director Relationship Specialty Start Date End Date Jcarlos Laureano PA-C [facility] [place] [phone] PCP - General Physician Shear Operator 07/10/23 documented as of this encounter
--- OUTSIDE RECORDS SUMMARY | 2024-08-25 08:15 | External Medical Summary | Summary of Care ---
Author Name Unknown Organization [facility] Address [address] [facility] [place] [address] Phone [phone] Care Team Providers Care Brim Cutter Name Role Phone Jcarlos Mcpherson PA-C Primary Care Provide r Reason for Visit * Reason Comments Medication Refill Encounter Details Date Type Department Care Team (Late st Contact Info) Description 07/01/2024 Refill Family Practice [facility] [place] [address] [facility] [place] [address] Jcarlos Mcpherson PA-C [address] [place] [address] Age-related osteoporosis without current pathological fracture Allergies [...] as of this encounter (statuses as of 07/02/2024) Medications Folic Acid 1 MG Oral TabletIndications:M [...] needed. Medical Marijuana Capsules Active Nystatin-Triamcinol one 239300-1.1 UNIT/GM-% External Cream (Mycolog)Indication s:Yeast infection Apply [...] MINUTES AFTER TAKING TABLET 15 Tablet 1 07/02/19 25 026 Active Alendronate Sodium 70 MG Oral Tablet (Fosamax)Indication s:Age-related osteoporosis without current pathological fracture TAKE ONE TABLET BY MOUTH ONCE A WEEK WITH 8 OZ OF WATER 30 MINUTES BEFORE FIRST MEAL OF THE DAY. REMAIN UPRIGHT FOR 30 MINUTES AFTER TAKING TABLET 15 Tablet 1 4 7:14 AM EDT 01/21/20 24 025 Discontin ued(Refil l) documented as of this encounter (statuses as of 07/02/2024) Active Problems Problem Noted Date Diagnosed Date Impingement syndrome of left shoulder 09/05/2022 Sacroiliitis, not elsewhere classified 3 Pure hypercholesterolemia 06/29/2022 Primary open-angle glaucoma, bilateral, mild sta ge 05/04/2022 Morbid obesity 05/04/2022 Monoallelic mutation of KCNQ1 gene 12/15/2021 Overview (12/15/2021): likely pathogenic KCNQ1 gene variant (c.1081 C>T, p.(Q361*)) detected via [employer]. Increased risk for Inherited Arrhythmias. Please click [...] as of this encounter (statuses as of 07/02/2024) Resolved Problems Problem Noted Date Diagnosed Date [...] exercise-induced 10/07/2012 06/02/2016 Genetic Sleep Disorder [facility] Other*[id number] 10/19/2011 01/20/2016 Other pulmonary embolism and infarction [...] as of this encounter (statuses as of 07/02/2024) Immunizations Name Administration Dates Next Due COVID-19 [...] No 09/12/2023 Does the household have a [facility] source of income? (Household - for [...] Job Start Date Job End Date retired /[place] [employer] Not on file Not on file Not on f ile documented as of this encounter Miscellaneous Notes * Telephone Encounter - Lauren Rendon, [facility] - 07/02/2024 9:25 AM ESTSigned Prescriptions: Disp Refills Alendronate Sodium 70 MG Oral Tablet (Fosa*15 Tab*1 Sig: TAKE ONE TABLET BY MOUTH ONCE A WEEK WITH 8 OZ OF WATER 30 MINUTES BEFORE FIRST MEAL OF THE DAY. REMAIN UPRIGHT FOR 30 MINUTES AFTER TAKING TABLETAuthorizing Provider: JCARLOS MCPHERSON User: LAUREN RENDON documented in this encounter Plan of Treatment Upcoming Encounters Date Type Department Care Team (Late st Contact Info) Description 07/10/2024 12:40 PM EST Office Visit Family Practice [address] [place] [address] Jcarlos Mcpherson PA-C [address] [place] [address] 08/14/2024 1:00 PM EST Office Visit Allergy/Immunology [facility] [address] [place] [address] Precious Cleaning PA-C 200 [facility] [place] [address] 09/09/2024 3:00 PM EDT Office Visit Urology, [facility] 132 [facility] [place] [address] Salvador Mireles MD [address] [place] [phone] 09/18/2024 2:30 PM EDT Nurse Only Ancillary [place] [address] [place] [address] [place], Nurse Annual Wellness Cold [address] [place] [address] 11/05/2024 8:00 AM EDT Office Visit Rheumatology [place] 202850 [facility] [place] [address] Karyn Garcia CRNP [facility] [place] [address] 12/23/2024 2:30 PM EDT Office Visit Sleep Disorders Ctr [facility] [address] [place] [phone] Edilma Brown CRNP [address] [place] [address] 02/04/2025 12:50 PM EDT Office Visit Dermatology [facility] [place] [address] [place] [address] Amy Mckeon PA-C [address] [place] [address] Health Maintenance Due Date Last Done Comments [...] D LEVEL ONCE IN A LIFETIME-USE SMARTSET# [id number] Completed 04/30/2023, 12/21/2021, 09/13/2020, Additional history exists [...] osteoporosis without current pathological fracture Senile osteoporosis documented in this encounter Care Teams Brim Cutter Relationship Specialty Start Date End Date Jcarlos Mcpherson PA-C [address] [facility] [place] [address] PCP - General Physician Emergency Physician 07/10/23 documented as of this encounter
--- OUTSIDE RECORDS SUMMARY | 2024-08-25 08:15 | External Medical Summary | Summary of Care ---
Author Name Unknown Organization [facility] Address [address] [facility] [address] Phone [phone] Care Team Providers Care Rental Agent Name Role Phone Jcarlos Laureano PA-C Primary Care Provide r Encounter Details Date Type Department Care Team (Late st Contact Info) Description 07/08/2024 Population Health External Data Unspecified Department Allergies [...] as of this encounter (statuses as of 07/09/2024) Medications Folic Acid 1 MG Oral TabletIndications:M [...] needed. Medical Marijuana Capsules Active Nystatin-Triamcinol one 281432-7.1 UNIT/GM-% External Cream (Mycolog)Indication s:Yeast infection Apply [...] 10:27 AM EST 07/02/19 25 026 Active documented as of this encounter (statuses as of 07/09/2024) Active Problems Problem Noted Date Diagnosed Date Impingement syndrome of left shoulder 09/05/2022 Sacroiliitis, not elsewhere classified 3 Pure hypercholesterolemia 06/29/2022 Primary open-angle glaucoma, bilateral, mild sta ge 05/04/2022 Morbid obesity 05/04/2022 Monoallelic mutation of KCNQ1 gene 12/15/2021 Overview (12/15/2021): likely pathogenic KCNQ1 gene variant (c.1081 C>T, p.(Q361*)) detected via [employer]. Increased risk for Inherited Arrhythmias. Please click [...] as of this encounter (statuses as of 07/09/2024) Resolved Problems Problem Noted Date Diagnosed Date [...] Overview (02/21/2018): 02/14/18 While on vaction in [place] Facial laceration 02/21/2018 06/27/2021 Overview (02/21/2018): 02/14/18 While on vaction in [place] Closed fracture of nasal bones 02/21/2018 06/27/2021 Overview (02/21/2018): 18 While on vaction in [place] Fall on or from sidewalk curb 02/21/2018 03/13/2018 Overview (02/21/2018): 02/14/18 While on vaction in [place] History of nonmelanoma skin cancer 06/12/2017 12/20/2017 Overview (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 12/02 Trochanteric bursitis of right hip 05/16/2017 12/20/2017 Hx of non anemic vitamin B12 deficiency 04/02/2017 12/20/2017 History of laminectomy 07/26/201612/20 HTN, goal below 150/90 12/24/201508/21 Bronchospasm, exercise-induced 10/07/2012 06/02/2016 Genetic Sleep Disorder Resea [facility] Other*[id number] 10/19/2011 01/20/2016 Other pulmonary embolism and infarction [...] as of this encounter (statuses as of 07/09/2024) Immunizations Name Administration Dates Next Due COVID-19 [...] Job Start Date Job End Date retired /[place] [employer] Not on file Not on file Not on f ile documented as of this encounter Plan of Treatment Upcoming Encounters Date Type Department Care Team (Late st Contact Info) Description 07/10/2024 12:40 PM EST Office [facility] [address] [place] [address] Jcarlos Laureano PA-C [address] [place] [address] [place] [address] 08/14/2024 1:00 PM EST Office Visit Allergy/Immunology [facility] [address] [place] [address] Precious Cleaning PA-C [address] [place] [address] 09/09/2024 3:00 PM EDT Office Visit Urology, [facility] [address] [place] [phone] Salvador Mireles MD [address] [place] [phone] 09/18/2024 2:30 PM EDT Nurse Only Ancillary [place] [address] [place] [address] [place], Nurse Annual Wellness [place] [address] [place] [address] 11/05/2024 8:00 AM EDT Office Visit Rheumatology [facility] [place] [phone] Karyn Garcia CRNP [address] [place] [address] 12/23/2024 2:30 PM EDT Office Visit [facility] Disorders Ctr [facility] [place] [phone] Edilma Brown CRNP [address] [facility] [place] [address] 02/04/2025 12:50 PM EDT Office Visit Dermatology [facility], [place] [address] [place] [address] Amy Mckeon PA-C [address] [facility] [place] [address] Health Maintenance Due Date Last Done Comments [...] D LEVEL ONCE IN A LIFETIME-USE SMARTSET# [id number] Completed 04/30/2023, 12/21/2021, 09/13/2020, Additional history exists [...] filedocumented as of this encounter Care Teams Rental Agent Relationship Specialty Start Date End Date Jcarlos Laureano PA-C [address] [facility] [place] [address] PCP - General Physician Dog Boarder 07/10/23 documented as of this encounter
--- OUTSIDE RECORDS SUMMARY | 2024-08-25 08:16 | External Medical Summary | Summary of Care ---
Author Name Unknown Organization [facility] Address [address] [facility] [place] [address] Phone [phone] Care Team Providers Care Personalized Living Assistant Name Role Phone Jcarlos Laureano PA-C Primary Care Provide r Reason for Visit * Reason Onset Date Comments Follow Up 04/30/2024 Encounter Details Date Type Department Care Team (Late st Contact Info) Description 04/30/2024 2:00 PM EST Scheduled Telephone [facility], [facility] [address] [place] [address] [facility], Nurse Phone Call Interventional Pain [facility] [address] [place] [address] Arrived Allergies Active Allergy Reactions Criticality Noted Date [...] as of this encounter (statuses as of 04/30/2024) Medications Medication Sig Dispensed Refills Start Date End Date Status Folic Acid 1 MG Oral TabletIndications:MTH FR mutation TAKE ONE TABLET BY MOUTH EVERY DAY 90 Tablet 3 08/27/2023 Active Albuterol Sulfate HFA 108 (90 Base) [...] needed. Medical Marijuana Capsules Active Nystatin-Triamcinolon e 379295-9.1 UNIT/GM-% External Cream (Mycolog)Indications: Yeast infection Apply [...] AFTER TAKING TABLET 15 Tablet 1 01/21/2024 Active Estradiol 0.1 MG/GM Vaginal Cream (Estrace)Indications: Vaginal atrophy Apply one-half gram topically to affected area in the morning. 42.5 g 6 02/11/2024 Active Gabapentin 400 MG Oral Capsule (Neurontin)Indication s:Sacroiliitis, not elsewhere classified (HCC) Take 1 Capsule by mouth in the morning and 1 Capsule at noon and 1 Capsule before bedtime. 270 Capsule 3 02/26/2024 Active Sulfamethoxazole-Trim ethoprim 400-80 MG Oral Tablet [...] a week. 9 mL 1 03/01/2024 Active Anoro Ellipta 62.5-25 MCG/ACT Inhalation Aerosol Powder Breath Activated (umeclidinium-vilante rol) inhale one puff by mouth every day 180 Each 1 03/19/2024 Active Apixaban 5 MG Oral Tablet (Eliquis)Indications: HTN, goal below 150/90,Edema TAKE ONE TABLET BY MOUTH EVERY MORNING AND TAKE ONE TABLET BY MOUTH AT BEDTIME 200 Tablet 1 04/07/2024 Active documented as of this encounter (statuses as of 04/30/2024) Active Problems Problem Noted Date Diagnosed Date Impingement syndrome of left shoulder 09/05/2022 Sacroiliitis, not elsewhere classified Pure hypercholesterolemia 06/29/2022 Primary open-angle glaucoma, bilateral, mild sta ge 05/04/2022 Morbid obesity 05/04/2022 Monoallelic mutation of KCNQ1 gene 12/15/2021 Overview: likely pathogenic KCNQ1 gene variant (c.1081 C>T, p.(Q361*)) detected via [employer]. Increased risk for Inherited Arrhythmias. Please click [...] as of this encounter (statuses as of 04/30/2024) Resolved Problems Problem Noted Date Diagnosed Date [...] 03/13/2018 Overview: 02/14/18 While on vaction in [place] Facial laceration 02/21/2018 06/27/2021 Overview: 02/14/18 While on vaction in [place] Closed fracture of nasal bones 02/21/2018 06/27/2021 Overview: 02/14/18 While on vaction in [place] Fall on or from sidewalk curb 02/21/2018 03/13/2018 Overview: 02/14/18 While on vaction in [place] History of nonmelanoma skin cancer 06/12/2017 12/20/2017 Overview: BCC nasal bridge 12/02 Trochanteric bursitis of right hip 05/16/2017 12/20/2017 Hx of non anemic vitamin B12 deficiency 04/02/2017 12/20/2017 History of laminectomy 07/26/201612/20 HTN, goal below 150/90 12/24/201508/21 Bronchospasm, exercise-induced 10/07/2012 06/02/2016 Genetic Sleep Disorder Resea [facility] Other*[id number] 10/19/2011 01/20/2016 Other pulmonary embolism and infarction [...] as of this encounter (statuses as of 04/30/2024) Immunizations Name Administration Dates Next Due COVID-19 [...] No 09/12/2023 Does the household have a [facility] source of income? (Household - for ages [...] Telephone Encounter - Deena Kimball LPN - 04/30/2024 10:04 AM EST Right Sacroiliac joint injection under fluoroscopic guidance on 03/26/24 80% improvement, tolerable. Will call as needed. documented in this encounter Plan of Treatment Upcoming Encounters Date Type Department Care Team (Late st Contact Info) Description 05/14/2024 1:00 PM EST Office Visit Allergy/Immunology [facility] 200 [facility] [place] [address] Michael Vieira MD [address] [facility] [place] [address] 07/10/2024 12:40 PM EST Office Visit Family Practice [address], [place] [address] [place] [address] Jcarlos Laureano PA-C [address] [place] [address] 09/09/2024 3:00 PM EDT Office Visit Urology, [facility] 132 [facility] [place] [phone] Salvador Mireles MD [address] [place] [address] 09/18/2024 2:30 PM EDT Nurse Only Ancillary [address], [place] [address] [place] [address] [place], Nurse Annual Wellness Cold [address] [place] [address] 02/04/2025 12:50 PM EDT Office Visit Dermatology [address], [place] [address] [place] [address] Amy Mckeon PA-C [address] [place] [address] Health Maintenance Due Date Last Done Comments [...] D LEVEL ONCE IN A LIFETIME-USE SMARTSET# [id number] Completed 04/30/2023, 12/21/2021, 09/13/2020, Additional history exists [...] filedocumented as of this encounter Care Teams Personalized Living Assistant Relationship Specialty Start Date End Date Jcarlos Laureano PA-C [address] [facility] [place] [address] PCP - General Physician Corporate Scheduler 07/10/23 documented as of this encounter
--- OUTSIDE RECORDS SUMMARY | 2024-08-25 08:16 | External Medical Summary | Summary of Care ---
Author Name Unknown Organization [facility] Address [address] [facility] [place] [address] Phone [phone] Care Team Providers Care Display Coordinator Name Role Phone Jcarlos Laureano PA-C Primary Care Provide r Reason for Visit * Reason Onset Date Comments Medication Refill 05/01/2024 Encounter Details Date Type Department Care Team (Late st Contact Info) Description 05/01/2024 Refill Family Practice [facility], [place] [address] [facility] [place] [address] Jcarlos Laureano PA-C [address] [place] [address] Lumbar spinal stenosis Allergies Active Allergy Reactions Criticality Noted Date [...] as of this encounter (statuses as of 05/01/2024) Medications Medication Sig Dispensed Refills Start Date [...] needed. Medical Marijuana Capsules Active Nystatin-Triamcinolon e 847658-7.1 UNIT/GM-% External Cream (Mycolog)Indications: Yeast infection Apply to affected area two times per day for 1 week 15 g 2 11/22/2023 Active Latanoprost 0.005 % Ophthalmic Solution (Xalatan) Instill 1 Drop into both eyes at bedtime. 10 mL 3 11/23/2023 Active Tamsulosin HCl 0.4 MG Oral Capsule (Flomax) TAKE ONE CAPSULE BY MOUTH EVERY MORNING 90 Capsule 3 11/29/2023 5 Active Omeprazole 40 MG Oral Capsule Delayed [...] as of this encounter (statuses as of 05/01/2024) Active Problems Problem Noted Date Diagnosed Date Impingement syndrome of left shoulder 09/05/2022 Sacroiliitis, not elsewhere classified Pure hypercholesterolemia 06/29/2022 Primary open-angle glaucoma, bilateral, mild sta ge 05/04/2022 Morbid obesity 05/04/2022 Monoallelic mutation of KCNQ1 gene 12/15/2021 Overview: likely pathogenic KCNQ1 gene variant (c.1081 C>T, p.(Q361*)) detected via Shout[employer]matic. Increased risk for Inherited Arrhythmias. Please click [...] as of this encounter (statuses as of 05/01/2024) Resolved Problems Problem Noted Date Diagnosed Date [...] Overview: 02/14/18 While on vaction in [place] Facial laceration 02/21/2018 06/27/2021 Overview: 02/14/18 While on vaction in [place] Closed fracture of nasal bones 02/21/2018 06/27/2021 Overview: 02/14/18 While on vaction in [place] Fall on or from sidewalk curb 02/21/2018 03/13/2018 Overview: 02/14/18 While on vaction in [place] History of nonmelanoma skin cancer 06/12/2017 12/20/2017 Overview: BCC nasal bridge 12/02 Trochanteric bursitis of right hip 05/16/2017 12/20/2017 Hx of non anemic vitamin B12 deficiency 04/02/2017 12/20/2017 History of laminectomy 07/26/201612/20 HTN, goal below 150/90 12/24/201508/21 Bronchospasm, exercise-induced 10/07/2012 06/02/2016 Genetic Sleep Disorder Resea [facility] Other*[id number] 10/19/2011 01/20/2016 Other pulmonary embolism and infarction [...] as of this encounter (statuses as of 05/01/2024) Immunizations Name Administration Dates Next Due COVID-19 [...] as of this encounter Miscellaneous Notes * Addendum Note - Mel Rae LPN - 05/01/2024 2:43 PM ESTAddended by: MEL RAE on: 05/01/2024 02:43 PM Modules accepted: Orders * Telephone Encounter - Tri Morgan, nuclear reactor technician - 05/01/2024 12:54 PM EST Pt calling requesting the following medication below that is listed as "Historical". The following information was provided: Medication Name: Diclofenac Sodium 1 % External Gel (Voltaren) Directions: Apply to affected area 4 times a day as needed Preferred Quantity: ? Previous Prescriber: Roxi Bueno Preferred Pharmacy: [facility] Please review and approve if appropriate. Thank you, Dajuan Morgan, Basin Operator Raw Shellfish Preparer [facility] (Formerly [facility]) 05/01/2024,12:54 PM documented in this encounter Plan of Treatment Upcoming Encounters Date Type Department Care Team (Late st Contact Info) Description 05/14/2024 1:00 PM EST Office Visit Allergy/Immunology [facility] 200 [place] [address] Michael Vieira MD 200 [place] [address] 07/10/2024 12:40 PM EST [facility] [place] [address] [address] [place] [address] Jcarlos Laureano PA-C [address] [place] [address] 09/09/2024 3:00 PM EDT Office Visit Urology, [facility] 132 [facility] [place] [address] Salvador Mireles MD [address] [place] [address] 09/18/2024 2:30 PM EDT Nurse Only Ancillary [address], [place] [address] [place] [address] [place], Nurse Annual Wellness Cold [address] [place] [address] 02/04/2025 12:50 PM EDT Office Visit Dermatology [facility], [place] [address] [place] [address] Amy Mckeon PA-C [address] [place] [address] Health Maintenance Due Date Last Done Comments Zoster Vaccines (2 of 3) 11/17/2013 09/22/2013 COVID-19 Vaccine ( - 2023- season) 2024 05/10/2021, 08/25/2020, 07/28/2020 Adult Wellness Visit 09/12/2024 09/13/2023, 07/13/19 23 Depression Monitoring 09/12/2024 09/13/2023 DXA Scan 12/06/2024 12/06/2022, 11/23, 07/13/2020, Additional history exists DTap/Tdap Vaccines (3 - Td or Tdap) 12/23/2025 12/24/2015, 05/08/2006 Hepatitis C Screening Completed 10/07/2010 Pneumococcal Vaccine: 65+ Years Completed 10/15/2015, 04/04/2010 Albumin/Creatinine Ratio Discontinued 09/27/2022, 10/2022 VITAMIN D LEVEL ONCE IN A LIFETIME-USE SMARTSET# [id number] Completed 04/30/2023, 12/21/2021, 09/13/2020, Additional history exists [...] as of this encounter Visit Diagnoses Diagnosis Lumbar spinal stenosis Spinal stenosis, lumbar region, without neurogenic claudication documented in this encounter Care Teams Display Coordinator Relationship Specialty Start Date End Date Jcarlos Laureano PA-C [address] [facility] [place] [address] PCP - General Physician Medical Librarian 07/10/23 documented as of this encounter
--- OUTSIDE RECORDS SUMMARY | 2024-08-25 08:16 | External Medical Summary | Summary of Care ---
Author Name Unknown Organization [facility] Address [address] [facility] [place] [address] Phone [phone] Care Team Providers Care Sap Functional Analyst Name Role Phone Jcarlos Laureano PA-C Primary Care Provide r Reason for Visit * Reason Onset Date Comments Test Results 04/11/202404/28 left messag e on answering machine Encounter Details Date Type Department Care Team (Late st Contact Info) Description 04/11/2024 Telephone Family Practice [facility], [place] [address] [facility] [place] [address] Jcarlos Laureano PA-C [address] [facility] [place] [address] Test Results (04/28 left message on answeri... Allergies Active Allergy Reactions Criticality Noted Date [...] as of this encounter (statuses as of 05/06/2024) Medications Folic Acid 1 MG Oral TabletIndications:M THFR mutation TAKE ONE TABLET BY MOUTH EVERY DAY 90 Tablet 3 02/19/2024 10:57 AM EDT 4 025 Active Albuterol Sulfate HFA 108 [...] 100 Tablet 3 02/12/2024 11:29 AM EDT 4 Active Zinc 50 MG Oral Tablet [...] needed. Medical Marijuana Capsules Active Nystatin-Triamcinol one 694217-4.1 UNIT/GM-% External Cream (Mycolog)Indication s:Yeast infection Apply to affected area two times per day for 1 week 15 g 2 4 Active Latanoprost 0.005 % Ophthalmic Solution (Xalatan) Instill 1 Drop into both eyes at bedtime. 10 mL 3 02/11/2024 11:34 AM EDT 4 Active Tamsulosin HCl 0.4 MG Oral Capsule (Flomax) TAKE ONE CAPSULE BY MOUTH EVERY MORNING 90 Capsule 3 02/27/2024 8:02 AM EDT 4 025 Active Omeprazole 40 MG Oral Capsule Delayed Release (PriLOSEC)Indicatio ns:Gastroesophageal reflux disease with esophagitis without hemorrhage Take 1 Capsule by mouth in the morning. 90 Capsule 2 03/19/2024 2:05 PM EDT 4 Active DULoxetine HCl 60 MG Oral Capsule Delayed Release Particles (Cymbalta)Indicatio ns:HTN, goal below 150/90 TAKE ONE CAPSULE BY MOUTH EVERY DAY DO NOT CRUSH, CUT OR CHEW 90 Capsule 1 03/18/2024 1:47 PM EDT 4 025 Active CPAP every night at bedtime. [...] 270 Capsule 3 02/27/2024 8:02 AM EDT 4 Active Sulfamethoxazole-Tr imethoprim 400-80 MG Oral [...] 9 mL 1 03/06/2024 8:21 AM EDT 4 Active Anoro Ellipta 62.5-25 MCG/ACT Inhalation Aerosol Powder Breath Activated (umeclidinium-vilan terol) inhale one puff by mouth every day 180 Each 1 03/20/2024 1:33 PM EDT 4 Active Apixaban 5 MG Oral Tablet (Eliquis)Indication s:HTN, goal below 150/90,Edema TAKE ONE TABLET BY MOUTH EVERY MORNING AND TAKE ONE TABLET BY MOUTH AT BEDTIME 200 Tablet 1 04/08/2024 8:47 AM EDT 4 Active documented as of this encounter (statuses as of 05/06/2024) Active Problems Problem Noted Date Diagnosed Date Impingement syndrome of left shoulder 09/05/2022 Sacroiliitis, not elsewhere classified 3 Pure hypercholesterolemia 06/29/2022 Primary open-angle glaucoma, bilateral, mild sta ge 05/04/2022 Morbid obesity 05/04/2022 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 Increased risk for Inherited Arrhythmias. Please click [...] vertigo) 06/2015 DIAN (generalized anxiety disorder) 05/08/2014 ISMS (nonalcoholic steatohepatitis) 09/22/2013 LUIS (obstructive sleep apnea) 01/12/2012 Overview (09/29/2014): 09/04/14 PSG -- AHI 5.9, RDI 8.1, no desats, 11% TST snoring 12/22/11 PSG - AHI 7.1, very mild nocturnal desats, mild snoring Lumbar spinal stenosis Overview (04/04/2010): L 5 documented as of this encounter (statuses as of 05/06/2024) Resolved Problems Problem Noted Date Diagnosed Date [...] Overview (02/21/2018): 02/14/18 While on vaction in [place] Facial laceration 02/21/2018 06/27/2021 Overview (02/21/2018): 02/14/18 While on vaction in [place] Closed fracture of nasal bones 02/21/2018 06/27/2021 Overview (02/21/2018): 02/14/18 While on vaction in [place] Fall on or from sidewalk curb 02/21/2018 03/13/2018 Overview (02/21/2018): 02/14/18 While on vaction in [place] History of nonmelanoma skin cancer 06/12/2017 12/20/2017 Overview (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 12/02 Trochanteric bursitis of right hip 05/16/2017 12/20/2017 Hx of non anemic vitamin B12 deficiency 04/02/2017 12/20/2017 History of laminectomy 07/26/201612/20 HTN, goal below 150/90 12/24/201508/21 Bronchospasm, exercise-induced 10/07/2012 06/02/2016 Genetic Sleep Disorder Resea [facility] Other*[id number] 10/19/2011 01/20/2016 Other pulmonary embolism and infarction [...] as of this encounter (statuses as of 05/06/2024) Immunizations Name Administration Dates Next Due COVID-19 [...] encounter Miscellaneous Notes * Telephone Encounter - Mariah Hannah CCMA - 05/06/2024 4:56 PM EST Called pt, left voicemail for return call to nurse triage line. * Telephone Encounter - Christy Berry CCMA - 04/28/2024 8:54 AM EST Left message on answering machine regarding message below. Left call back number at [phone]. * Telephone Encounter - Jcarlos Laureano PA-C - 04/27/2024 10:10 PM EST No growth on urine culture * Telephone Encounter - Kathleen Hightower PHARM Tech - 04/15/2024 3:37 PM EDT Pt requesting HIGH PRIORITY due to pt still has no word since 04/08 pt calling to check on status of UTI results and . Caller can be reached at [phone]. Thank you, Kathleen Hightower CPhT Learning Support Services Director II [facility] Services([facility]) 04/15/2024,3:37 PM * Telephone Encounter - Vijaya Velasquez CPhT - 04/11/2024 2:59 PM EDT Patient calling to check status if UTI results please advise Thank you, Vijaya Velasquez Learning Support Services Director II Centralized Clinical Pharmacy Services ([facility]PS) (formerly Telepharmacy) 04/11/2024 3:00 PM * Telephone Encounter - Jaki Looney OSA - 04/11/2024 1:53 PM EDT Who is Requesting Test Results: Patient Primary Care Provider : Jcarlos Laureano PA-C Tests Results Requested : Urine Culture Date of Test : 04.08.24 Location of Test: n/a Ordering Provider: Jcarlos Laureano PA-C Patient has been made aware that the [...] 1:00 PM EST Office Visit Allergy/Immunology [facility] Roy [address] [place] [address] Michael Vieira MD [address] [place] [address] 07/10/2024 12:40 PM EST Office Visit Family Practice [address], [place] [address] [place] [address] Jcarlos Laureano PA-C [address] [place] [address] 09/09/2024 3:00 PM EDT Office Visit Urology, [facility] [address] [facility] [place] [id number] Salvador Mireles MD [address] [place] [address] 09/18/2024 2:30 PM EDT Nurse Only Ancillary [address], [place] [address] [place] [address] [place], Nurse Annual Wellness [place] [address] [place] [address] 02/04/2025 12:50 PM EDT Office Visit Dermatology [address], [place] [address] [place] [address] Amy Mckeon PA-C [address] [place] [address] Health Maintenance Due Date Last Done Comments [...] D LEVEL ONCE IN A LIFETIME-USE SMARTSET# [id number] Completed 04/30/2023, 12/21/2021, 09/13/2020, Additional history exists [...] filedocumented as of this encounter Care Teams Sap Functional Analyst Relationship Specialty Start Date End Date Jcarlos Laureano PA-C [address] [facility] [place] [id number] PCP - General Physician Design Assembler 07/10/23 documented as of this encounter
--- OUTSIDE RECORDS SUMMARY | 2024-08-25 08:16 | External Medical Summary | Summary of Care ---
Author Name Unknown Organization [facility] Address [address] [facility] [place] [address] Phone [phone] Care Team Providers Care Director Of Intelligence Name Role Phone Jcarlos Laureano PA-C Primary Care Provide r Reason for Visit * Reason Onset Date Comments Test Results 04/11/202404/28 left messag e on answering machine Encounter Details Date Type Department Care Team (Late st Contact Info) Description 04/11/2024 Telephone Family Practice [facility] [place], [place] [address] [facility] [place] [address] Jcarlos Laureano PA-C [address] [facility] [place] [address] Test Results (04/28 left message on answeri... [...] as of this encounter (statuses as of 04/28/2024) Medications Medication Sig Dispensed Refills Start Date [...] needed. 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 Increased risk for Inherited Arrhythmias. Please click [...] as of this encounter (statuses as of 04/28/2024) Resolved Problems Problem Noted Date Diagnosed Date [...] exercise-induced 10/07/2012 06/02/2016 Genetic Sleep Disorder Resea [facility] Other*[id number] 10/19/2011 01/20/2016 Other pulmonary embolism and infarction [...] as of this encounter (statuses as of 04/28/2024) Immunizations Name Administration Dates Next Due COVID-19 [...] No 09/12/2023 Does the household have a [facility] healthcare facility[facility] source of income? (Household - for ages [...] encounter Miscellaneous Notes * Telephone Encounter - Christy Berry CCMA - 04/28/2024 8:54 AM EST Left message on answering machine regarding message below. Left call back number at [phone]. * Telephone Encounter - Jcarlos Laureano PA-C - 04/27/2024 10:10 PM EST No growth on urine culture * Telephone Encounter - Kathleen Hightower PHARM Tech - 04/15/2024 3:37 PM EDT Pt requesting HIGH PRIORITY due to pt still has no word since 04/08 pt calling to check on status of UTI results and . Caller can be reached at [phone]. Thank you, Kathleen Hightower CPhT Installation Manager II Centralized Clinical Pharmacy Services([facility]PS) 04/15/2024,3:37 PM * Telephone Encounter - Vijaya Velasquez CPhT - 04/11/2024 2:59 PM EDT Patient calling to check status if UTI results please advise Thank you, Vijaya Velasquez Installation Manager II Central[facility] Clinical Pharm[facility] Services ([facility]PS) (formerly [...] PM EST Scheduled Telephone [facility], [facility] [address] [facility] [place] [address] [place] Nurse Phone Call Interventional [facility] 132 [place] [address] 05/14/2024 1:00 PM EST Office Visit Allergy/Immunology [facility] 200 [facility] [place] [address] Michael Vieira MD 200 [facility] [place] [address] 07/10/2024 12:40 PM EST Office Visit Family Practice [address], [place] [address] [place] [address] Jcarlos Laureano PA-C [address] [place] [address] 09/09/2024 3:00 PM EDT Office Visit Urology, [facility] 132 [facility] [place] [address] Salvador Mireles MD [address] [place] [address] 09/18/2024 2:30 PM EDT Nurse Only Ancillary [place] [address] [address] [place] [address] [place], Nurse Annual Wellness [place] [address] [place] [address] 02/04/2025 12:50 PM EDT Office Visit Dermatology [place] [address] [facility] [place] [address] Amy Mckeon PA-C [address] [facility] [place] [address] Health Maintenance Due Date Last Done Comments [...] D LEVEL ONCE IN A LIFETIME-USE SMARTSET# [id number] Completed 04/30/2023, 12/21/2021, 09/13/2020, Additional history exists [...] filedocumented as of this encounter Care Teams Director Of Intelligence Relationship Specialty Start Date End Date Jcarlos Laureano PA-C [address] [facility] [place] [address] PCP - General Physician Manager Gift 07/10/23 documented as of this encounter
--- OUTSIDE RECORDS SUMMARY | 2024-08-25 08:16 | External Medical Summary | Summary of Care ---
Author Name Unknown Organization [facility] Address [address] [facility] [place] [address] Phone [phone] Care Team Providers Care Multilith Operator Name Role Phone Jcarlos Laureano PA-C Primary Care Provide r Reason for Visit * Reason Onset Date Comments Medication Refill 05/01/2024 Encounter Details Date Type Department Care Team (Late st Contact Info) Description 05/01/2024 Telephone Family Practice [facility] [place] [address] [place] [address] Jcarlos Laureano PA-C [address] [place] [address] Medication Refill Allergies Active Allergy Reactions Criticality Noted Date [...] needed. Medical Marijuana Capsules Active Nystatin-Triamcinolon e 870334-6.1 UNIT/GM-% External Cream (Mycolog)Indications: Yeast infection Apply [...] puff by mouth every day 180 Each 03/19/2024 Active Apixaban 5 MG Oral Tablet [...] gene variant (c.1081 C>T, p.(Q361*)) detected via [employer]. Increased risk for Inherited Arrhythmias. Please click [...] exercise-induced 10/07/2012 06/02/2016 Genetic Sleep Disorder Resea [facility] Other*[id number] 10/19/2011 01/20/2016 Other pulmonary embolism and infarction [...] encounter Miscellaneous Notes * Telephone Encounter - Tri Morgan, management consulting - 05/01/2024 12:54 PM EST Pt calling requesting the following medication below that is listed as "Historical". The following information was provided: Medication Name: Diclofenac Sodium 1 % External Gel (Voltaren) Directions: Apply to affected area 4 times a day as needed Preferred Quantity: ? Previous Prescriber: Roxi Bueno Preferred Pharmacy: [facility] Please review and approve if appropriate. Thank you, Dajuan Morgan, Cloth Boil Off Machine Operator Sandstone Splitter 1 [facility] Services ([facility]) (Formerly Telepharmacy) 05/01/2024,12:54 PM documented in this encounter Plan of Treatment Upcoming Encounters Date Type Department Care Team (Late st Contact Info) Description 05/14/2024 1:00 PM EST Office [facility] [address] [facility] [place] [address] Michael Vieira MD [address] [facility] [place] [address] 07/10/2024 12:40 PM EST Office Visit Family Practice [address], [place] [address] [place] [address] Jcarlos Laureano PA-C [address] [place] [address] 09/09/2024 3:00 PM EDT Office Visit Urology, [facility] [address] [facility] [place] [address] Salvador Mireles MD [address] [place] [address] 09/18/2024 2:30 PM EDT Nurse Only Ancillary [address], [place] [address] [place] [address] [place], Nurse Annual Wellness [place] [address] [place] [address] 02/04/2025 12:50 PM EDT Office Visit Dermatology [address], [place] [address] [place] [address] Amy Mckeon PA-C [address] [place] [address] Health Maintenance Due Date Last Done Comments [...] D LEVEL ONCE IN A LIFETIME-USE SMARTSET# [id number] Completed 04/30/2023, 12/21/2021, 09/13/2020, Additional history exists [...] filedocumented as of this encounter Care Teams Multilith Operator Relationship Specialty Start Date End Date Jcarlos Laureano PA-C [address] [facility] [place] [address] PCP - General Physician Life Teacher 07/10/23 documented as of this encounter
--- OUTSIDE RECORDS SUMMARY | 2024-08-25 08:16 | External Medical Summary | Summary of Care ---
Author Name Unknown Organization [facility] Address [address] [facility] [place] [address] Phone [phone] Care Team Providers Care Music Coordinator Name Role Phone Jcarlos Laureano PA-C Primary Care Provide r Reason for Visit * Reason Onset Date Comments Test Results 04/11/2024 Encounter Details Date Type Department Care Team (Late st Contact Info) Description 04/11/[facility] [address] [facility] [place] [address] Jcarlos Laureano PA-C [address] [place] [address] Test Results Allergies Active Allergy Reactions Criticality Noted Date [...] as of this encounter (statuses as of 04/27/2024) Medications Medication Sig Dispensed Refills Start Date [...] needed. 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 Increased risk for Inherited Arrhythmias. Please click [...] as of this encounter (statuses as of 04/27/2024) Resolved Problems Problem Noted Date Diagnosed Date [...] 03/13/2018 Overview: 02/14/18 While on vaction in [place] Facial laceration 02/21/2018 06/27/2021 Overview: 02/14/18 While on vaction in [place] Closed fracture of nasal bones 02/21/2018 06/27/2021 Overview: 02/14/18 While on vaction in [place] Fall on or from sidewalk curb 02/21/2018 03/13/2018 Overview: 02/14/18 While on vaction in [place] History of nonmelanoma skin cancer 06/12/2017 12/20/2017 Overview: BCC nasal bridge 12/02 Trochanteric bursitis of right hip 05/16/2017 12/20/2017 Hx of non anemic vitamin B12 deficiency 04/02/2017 12/20/2017 History of laminectomy 07/26/201612/20 HTN, goal below 150/90 12/24/201508/21 Bronchospasm, exercise-induced 10/07/2012 06/02/2016 Genetic Sleep Disorder Resea [facility] Other*[id number] 10/19/2011 01/20/2016 Other pulmonary embolism and infarction [...] as of this encounter (statuses as of 04/27/2024) Immunizations Name Administration Dates Next Due COVID-19 [...] No 09/12/2023 Does the household have a [place] service unit[facility] source of income? (Household - for ages [...] and . Caller can be reached at [phone]. Thank you, Kathleen Hightower CPhT Photo Tech II [facility] Pharm[facility] Services([facility]) 04/15/2024,3:37 PM * Telephone Encounter - Vijaya Velasquez CPhT - 04/11/2024 2:59 PM EDT Patient calling to check status if UTI results please advise Thank you, Vijaya Velasquez Photo Tech II Central[facility] Clinical Pharmacy Services ([facility]PS) (formerly [...] PM EST Scheduled Telephone [facility], [address] [place] [address] [place], Nurse Phone Call Interventional Pain [place] [address] [facility] [place] [address] 05/14/2024 1:00 PM EST Office Visit Allergy/Immunology [facility] [address] [place] [address] Michael Vieira MD 200 [facility] [place] [address] 07/10/2024 12:40 PM EST Office Visit Family Practice [address], [place] [address] [place] [address] Jcarlos Laureano PA-C [address] [place] [address] 09/09/2024 3:00 PM EDT Office Visit Urology, [facility] 132 [facility] [place] [address] Salvador Mireles MD [address] [place] [address] 09/18/2024 2:30 PM EDT Nurse Only Ancillary [address], [place] [address] [place] [address] [place] Nurse Annual Wellness [place] [address] [place] [address] 02/04/2025 12:50 PM EDT Office Visit Dermatology [address], [place] [address] [place] [address] Amy Mckeon PA-C [address] [place] [address] Health Maintenance Due Date Last Done Comments [...] D LEVEL ONCE IN A LIFETIME-USE SMARTSET# [id number] Completed 04/30/2023, 12/21/2021, 09/13/2020, Additional history exists [...] filedocumented as of this encounter Care Teams Music Coordinator Relationship Specialty Start Date End Date Jcarlos Laureano PA-C [address] [facility] [place] [address] PCP - General Physician Studio Producer 07/10/23 documented as of this encounter
--- OUTSIDE RECORDS SUMMARY | 2024-08-25 08:16 | External Medical Summary | Summary of Care ---
Author Name Unknown Organization [facility] Address [address] [facility] [address] Phone [phone] Care Team Providers Care Administrative Support Specialist Name Role Phone Jcarlos Laureano PA-C Primary Care Provide r Encounter Details Date Type Department Care Team (Late st Contact Info) Description 05/01/2024 Population Health External Data Unspecified Department Allergies [...] as of this encounter (statuses as of 05/08/2024) Medications Folic Acid 1 MG Oral TabletIndications:M THFR mutation TAKE ONE TABLET BY MOUTH EVERY DAY 90 Tablet 3 02/19/2024 10:57 AM EDT 4 03/04/2 025 Active Albuterol Sulfate HFA 108 (90 [...] needed. Medical Marijuana Capsules Active Nystatin-Triamcinol one 235783-0.1 UNIT/GM-% External Cream (Mycolog)Indication s:Yeast infection Apply [...] 1 04/08/2024 8:47 AM EDT 4 Active Diclofenac Sodium 1 % External Gel (Voltaren)Indicatio ns:Lumbar spinal stenosis Apply topically to affected area 4 times a day as needed for Pain. Apply to affected areas, back and hips, 4 times a day as needed for pain. 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 Increased risk for Inherited Arrhythmias. Please click [...] as of this encounter (statuses as of 05/08/2024) Resolved Problems Problem Noted Date Diagnosed Date [...] 10/07/2012 06/02/2016 Genetic Sleep Disorder Resea [facility] Other*[id number] 10/19/2011 01/20/2016 Other pulmonary embolism and infarction [...] as of this encounter (statuses as of 05/08/2024) Immunizations Name Administration Dates Next Due COVID-19 [...] 05/14/2024 1:00 PM EST Office Visit Allergy/Immunology [facility] [address] [place] [address] Michael Vieira MD [address] [place] [address] 07/10/2024 12:40 PM EST Office Visit Family Practice [place] [address] [place] [address] Jcarlos Laureano PA-C [address] [place] [address] 09/09/2024 3:00 PM EDT Office Visit Urology, [facility] [place] [address] Salvador Mireles MD [address] [place] [address] 09/18/2024 2:30 PM EDT Nurse Only Ancillary [place] [address] [place] [address] [place], Nurse Annual Wellness [facility] [address] [place] [address] 02/04/2025 12:50 PM EDT Office Visit Dermatology [facility], [place] [address] [facility] [place] [address] Amy Mckeon PA-C [address] [place] [address] Health Maintenance Due Date Last Done Comments [...] D LEVEL ONCE IN A LIFETIME-USE SMARTSET# [id number] Completed 04/30/2023, 12/21/2021, 09/13/2020, Additional history exists [...] filedocumented as of this encounter Care Teams Administrative Support Specialist Relationship Specialty Start Date End Date Jcarlos Laureano PA-C [address] [facility] [place] [address] PCP - General Physician Border Machine Operator 07/10/23 documented as of this encounter
--- NOTE | 2024-08-25 08:27 | Emergency Department Note ---
Impression & Plan Retroperitoneal hematoma Admission ED Provider Note HPI: History obtained from patient. The patient is a 79-year-old female with history of COPD, pulmonary fibrosis, presents the emergency department with a chief complaint of abdominal pain. Patient states she has had this pain for the past 4 to 5 days, she states that it is in the midportion of her abdomen. Patient states she has had several episodes of vomiting as well as diarrhea. Patient denies any chest pain or shortness of breath. On arrival here to the ED the patient appears to be in mild distress secondary to her pain, she is hypertensive on arrival but otherwise hemodynamically stable. ROS: - Per HPI Differential Diagnosis: Viral gastroenteritis, acute appendicitis, acute cholecystitis, small bowel obstruction, mesenteric ischemia, diverticulitis flare, perforated viscus, abdominal aortic dissection, amongst other potential pathologies. *Outpatient medications and allergy history reviewed. PE: General: Alert, mild distress secondary to pain HEENT: Normocephalic, trachea midline Eyes: Extraocular eye movement is intact, no scleral erythema Pulmonary: Clear to auscultation bilaterally, no wheezing Cardio: Regular rate and rhythm GI: Abdomen is soft to palpation, there is tenderness over the mid abdomen with palpation without guarding or rigidity : No suprapubic tenderness MSK: No evidence of trauma or malformation of the extremities, no edema Skin: No evidence of rash Neuro: Alert, no focal deficits Psychiatric: Cooperative INDEPENDENT INTERPRETATIONS: ear nose throat surgeon: (As interpreted by myself): - An order was placed for continuous cardiac monitoring - Patient was noted to be in sinus rhythm with rate of 85 EKG: (As interpreted by myself): Rate: 62 Rhythm: Normal sinus rhythm Intervals: OH interval prolonged at 208 ms, otherwise within normal limits ST changes: No ST elevation Time: 0834 Interventions provided in ED: -IV morphine, IV Zofran, IV fluid bolus, [facility] Medical Decision Making: IV was established and lab work obtained, patient was placed on rand maker. Lab work shows no leukocytosis, hemoglobin is normal at 15.2, platelet count is also normal at 186, CMP shows a mild hypokalemia at 3.0, no evidence of acute kidney injury, otherwise no critical findings are noted. Troponin is negative x 1, EKG per my interpretation shows normal sinus rhythm without any acute ischemic changes. CT imaging of the abdomen pelvis with IV contrast was obtained, I did receive a call from the interpreting radiologist, Dr. Celeste, in regards to critical findings on CT imaging. There is evidence of a large right-sided retroperitoneal hematoma that appears to be originating from the hepatic artery. There is no active extravasation noted. Patient is otherwise hemodynamically stable here in the ED, her pain is under good control following the above interventions. Her hemoglobin is normal. I contacted the [facility] transfer center and discussed the patient's presentation with the on-call triage officer, Dr. Estrada. At this point he got in touch with interventional radiology at [facility] and the patient was accepted for transfer. I received a phone call from the transfer center secretary of police stating that the patient would not have an available bed within the next 24 hours and recommendation was made for placement at this facility until a bed was available. Patient was listed as a routine transfer on [facility]'s end secondary to her hemodynamic stability and normal lab work. I discussed this with the patient as well as her son at the bedside, they are in agreement for transfer and signed consent for transfer. She expressed an understanding of her current diagnosis and the reason for delay in transfer as she is currently stable and she will be awaiting a bed. Patient was in agreement to this plan. Case was then discussed with the on-call hospitalist for [facility], Dr. Nina, and the patient was placed for admission in stable condition pending transfer. Consultants/Discussions held with other healthcare providers: -Hospitalist, Dr. Britton -Transfer physician at [facility], Dr. 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 Diagnosis: 1. Retroperitoneal hematoma, acute 2. Abdominal pain, acute 3. History of venous thrombus, on anticoagulation with Eliquis Disposition: Admission pending transfer Haresh Sargent DO Emergency Medicine Past Med/Surg History Problem List (Updated 08/25/24 @ 14:01 by Haresh Sargent DO) Retroperitoneal hematoma (Acute) Ileus Diabetes mellitus type 2, controlled, with complications Hypokalemia due to excessive gastrointestinal loss of potassium Viral gastroenteritis Suspected urinary tract infection Retroperitoneal hemorrhage COPD (chronic obstructive pulmonary disease) (Acute) COVID-19 (Acute) Pulmonary fibrosis Glossitis Thrush of mouth and esophagus Vocal cord nodules Restrictive lung disease Hoarseness of voice Obesity Ex-smoker Allergic rhinitis with postnasal drip Abnormal chest CT Exertional shortness of breath Accidental fall (Acute) Fall (Acute) Encounter for pre-operative examination Osteoarthritis of right knee Status post total right knee replacement Encounter for pre-operative examination Iron deficiency anemia Urinary tract infection (Acute 08/29/12) Recurrent UTI (Acute) Nephrolithiasis (Acute) Atrophic vaginitis Medical History Oral candidiasis Acute respiratory failure with hypoxia Pneumonia due to COVID-19 virus Bronchitis COVID-19 Sleep apnea "mild" no device History of skin cancer removed Diverticular disease Anemia Hypertension Obesity Hx pulmonary embolism 2012; AC X ONE MONTHS History of kidney stones History of DVT of lower extremity 2012, WAS ON BLOOD THINNERS X ONE MONTH; unk etiology Hiatal hernia GERD (gastroesophageal reflux disease) CONTROLLED Osteoarthritis Surgical History (Updated 04/08/24 @ 00:07 by Cliff Beck) History of left cataract surgery History of lumpectomy x 2 (benign) History of appendectomy History of tonsillectomy History of nasal surgery History of colonoscopy X 2 History of esophagogastroduodenoscopy (EGD) X 2 History of total knee replacement RIGHT Siri filter in place PLACED 2012 History of lumbar spinal fusion History of hysterectomy History of cholecystectomy Family History Father Hypertension Other No family history of adverse response to anesthesia Social History Smoking Status: Never smoker Cigarettes Per Day: HX OF 1 PACK PER WEEK, QUIT 25 YEARS AGO; Second Hand Exposure: No; Do You Dip or Chew Tobacco: No; Hx Alcohol Use: No Hx Substance Use: No Preferred Language: Luxembourgish Communication Ability: Effective Webmethods Architect Required: No Beliefs That Will Affect Care: None Current Living Situation: Alone Feels Safe at Home: Yes Assistive Devices: CPAP Allergies Allergies Allergy/AdvReac Type Severity Reaction Status Date / Time naproxen Allergy Severe SOB, HIVES Verified 04/22/24 13:24 WITH ALEVE ibuprofen Allergy Mild HIVES Verified 04/22/24 13:24 morphine Allergy Mild itching Verified 04/22/24 13:24 levofloxacin Allergy Unknown Unknown Verified 04/22/24 13:24 Penicillins Allergy Unknown occured as Verified 04/22/24 13:24 a child, severe itching prochlorperazine Allergy Unknown "eyes Verified 04/22/24 13:24 rolled back in head", muscle twitching latex Allergy blisters Verified 04/22/24 13:24 nitrofurantoin AdvReac Intermediate Nausea/vomi Verified 04/22/24 13:24 ting Home Meds Home Medications Medication Instructions Recorded Confirmed amoxicillin 500 mg capsule 2,000 mg PO DIRECTED 03/20/22 08/25/24 betamethasone valerate 0.1 % 1 applic topical UD PRN FLARE UPS 03/20/22 08/25/24 topical ointment diclofenac sodium 1 % topical gel 1 ea topical BID PRN Pain 03/20/22 08/25/24 estradiol 0.01% (0.1 mg/gram) 1 applic vaginal UD 03/20/22 08/25/24 vaginal cream folic acid 1 mg tablet 1 mg PO DAILY 03/20/22 08/25/24 metoprolol succinate 25 mg 25 mg PO QAM 03/20/22 08/25/24 tablet,extended release 24 hr nystatin 100,000 unit/gram topical 1 applic topical UD 03/20/22 08/25/24 powder (Nystop) rosuvastatin 5 mg tablet 5 mg PO DAILY 07/03/22 08/25/24 latanoprost 0.005 % eye drops 1 drp OPB QPM 01/25/23 08/25/24 omeprazole 40 mg capsule,delayed 40 mg PO DAILYBB 01/25/23 08/25/24 release alendronate 70 mg tablet (Fosamax) 70 mg PO WK 08/23/23 08/25/24 semaglutide 2 mg/dose (8 mg/3 mL) 2 mg subcut .weekly 08/23/23 08/25/24 subcutaneous pen injector (Ozempic) gabapentin 400 mg capsule 400 mg PO TID 03/05/24 08/25/24 nystatin-triamcinolone 100,000 1 applic topical UD PRN Skin 03/06/24 08/25/24 unit/g-0.1 % topical cream Irritation ascorbate calcium (vitamin C) 500 500 mg PO DAILY 04/22/24 08/25/24 mg tablet cholecalciferol (vitamin D3) 10 10 mcg PO DAILY 04/22/24 08/25/24 mcg (400 unit) capsule zinc acetate 50 mg (zinc) capsule 50 mg PO DAILY 04/22/24 08/25/24 (Galzin) saliva substitute combo no.9 15 ml PO UD 08/25/24 08/25/24 (Biotene PBF mouthwash) tamsulosin 0.4 mg capsule 0.4 mg PO QAM 08/25/24 08/25/24 Previous Rx's Medication Instructions Recorded apixaban 5 mg tablet (Eliquis) 5 mg PO BID #60 tabs 04/14/22 nebulizer accessories #1 ea 05/01/22 albuterol sulfate 90 mcg/actuation 2 puff inhalation Q6H PRN 04/24/24 aerosol inhaler Shortness Of Breath Or Wheezing #3 Inhalers umeclidinium 62.5 mcg-vilanterol 1 inh inhalation DAILY #3 Inhalers 06/16/24 25 mcg/actuation powdr for inhalation (Anoro Ellipta) Results & Data (ED) Vital Signs Vital Signs - 24 hr 08/25/24 07:55 08/25/24 08:27 08/25/24 09:00 Temperature 36.8 C Temperature Source Oral Pulse Rate 71 64 Pulse Rate [Left Finger] 63 Pulse Rhythm Regular Pulse Rhythm [Left Finger] Pulse Strength Normal Pulse Strength [Left Finger] Respiratory Rate 18 20 Respiratory Effort / Characteristics Respiratory Depth Respiratory Pattern Blood Pressure 183/125 H Blood Pressure [Left Arm] 119/59 L Blood Pressure Mean 144 Blood Pressure Mean [Left Arm] 79 Blood Pressure Position Sitting Blood Pressure Position [Left Arm] Lying Pulse Oximetry 97 94 Oxygen Delivery Method Room Air Sepsis Recent Fever Within 48 Hours No Sepsis New/Unexplained Change in Mental Status No Sepsis Action Taken by Nursing No Action Required 08/25/24 10:27 08/25/24 12:00 08/25/24 13:00 Temperature Temperature Source Pulse Rate Pulse Rate [Left Finger] 93 H 94 H 83 Pulse Rhythm Pulse Rhythm [Left Finger] Regular Pulse Strength Pulse Strength [Left Finger] Normal Respiratory Rate 20 20 20 Respiratory Effort / Characteristics Non-Labored Spontaneous Respiratory Depth Normal Respiratory Pattern Regular Blood Pressure Blood Pressure [Left Arm] 141/69 H 105/77 133/80 Blood Pressure Mean Blood Pressure Mean [Left Arm] 93 86 97 Blood Pressure Position Blood Pressure Position [Left Arm] Sitting Pulse Oximetry 96 95 94 Oxygen Delivery Method Room Air Room Air Sepsis Recent Fever Within 48 Hours Sepsis New/Unexplained Change in Mental Status Sepsis Action Taken by Nursing Laboratory Data 08/25/24 08:16 08/25/24 08:16 Lab Results 08/25/24 08/25/24 08/25/24 Range/Units 08:16 09:48 10:50 WBC 7.20 (4.8-10.8) K/ul RBC 4.70 (4.20-5.40) M/uL Hgb 15.2 (12.0-16.0) g/dl Hct 44.0 (37.0-47.0) % MCV 93.6 (80.0-100.0) fL MCH 32.3 (25.0-34.0) pg MCHC 34.5 (32.0-36.0) g/dL RDW Std Deviation 41.2 (36.4-46.3) fL RDW Coeff of Blayne 11.9 (11.5-14.5) % Plt Count 186 (130-400) K/uL MPV 9.1 L (9.4-12.4) fL Immature Gran % (Auto) 0.4 % Neut % (Auto) 71.2 % Lymph % (Auto) 20.6 % Titus % (Auto) 4.2 % Eos % (Auto) 3.3 % Baso % (Auto) 0.3 % Neut # (Auto) 5.13 (1.40-6.50) K/uL Lymph # (Auto) 1.48 (1.20-3.40) K/uL Titus # (Auto) 0.30 (0.11-0.59) K/uL Eos # (Auto) 0.24 (0.00-0.50) K/uL Baso # (Auto) 0.02 (0.00-0.20) K/uL Immature Gran # (Auto) 0.03 (0.01-0.20) K/uL PT Cancelled INR Cancelled APTT Cancelled PTT Ratio Cancelled Fibrinogen Cancelled Heparin Anti-Xa, LM Wt Cancelled Sodium 143 (136-145) mmol/L Potassium 3.0 L (3.5-5.1) mmol/L Chloride 105 (98-107) mmol/L Carbon Dioxide 26 (21-32) mmol/L Anion Gap 12 H (3-11) BUN 17 (6-23) mg/dl Creatinine 0.59 L (0.6-1.2) mg/dl Est Cr Clr Drug Dosing 81.0 ml/min eGFR 91.62 BUN/Creatinine Ratio 28.8 H (10-20) Glucose 201 H (70-99(Fasting)) mg/dl Calcium 9.1 (8.6-10.3) mg/dl Total Bilirubin 0.8 (0.2-1.0) mg/dl AST 28 (13-39) U/L ALT 29 (7-52) U/L Alkaline Phosphatase 54 (34-104) U/L Troponin I High Sens 3.0 (0-14) pg/ml Total Protein 6.2 (6.0-8.3) gm/dl Albumin 4.1 (3.4-5.0) gm/dl Globulin 2.1 L (2.5-4.0) gm/dl Albumin/Globulin Ratio 2.0 (0.9-2) Lipase 80 (11-82) U/L Urine Color Yellow Urine Appearance Turbid A (Clear) Urine pH 6.0 (4.5-7.5) Ur Specific [place] > 1.045 H (1.000-1.030) Urine Protein Negative (Negative) Urine Glucose (UA) Negative (Negative) Urine Ketones Negative (Negative) Urine Blood Negative (Negative) Urine Nitrite Positive A (Negative) Urine Bilirubin Negative (Negative) Urine Urobilinogen Negative (Negative) Ur Leukocyte Esterase Trace H (Negative) Urine RBC 0-2 (0-2) /hpf Urine WBC 6-10 H (0-5) /hpf Ur Epithelial Cells >20 H (0-2) /hpf Calcium Oxalate Crystal Present A (None Prsent) Urine Bacteria 2+ H (None Seen) Blood Type O Positive Antibody Screen NEGATIVE 08/25/24 08/25/24 Range/Units 12:07 12:07 WBC (4.8-10.8) K/ul RBC (4.20-5.40) M/uL Hgb (12.0-16.0) g/dl Hct (37.0-47.0) % MCV (80.0-100.0) fL MCH (25.0-34.0) pg MCHC (32.0-36.0) g/dL RDW Std Deviation (36.4-46.3) fL RDW Coeff of Blayne (11.5-14.5) % Plt Count (130-400) K/uL MPV (9.4-12.4) fL Immature Gran % (Auto) % Neut % (Auto) % Lymph % (Auto) % Titus % (Auto) % Eos % (Auto) % Baso % (Auto) % Neut # (Auto) (1.40-6.50) K/uL Lymph # (Auto) (1.20-3.40) K/uL Titus # (Auto) (0.11-0.59) K/uL Eos # (Auto) (0.00-0.50) K/uL Baso # (Auto) (0.00-0.20) K/uL Immature Gran # (Auto) (0.01-0.20) K/uL PT 10.8 INR 1.0 APTT 23 PTT Ratio 0.9 Fibrinogen Cancelled 312 Heparin Anti-Xa, LM Wt 0.66 Sodium (136-145) mmol/L Potassium (3.5-5.1) mmol/L Chloride (98-107) mmol/L Carbon Dioxide (21-32) mmol/L Anion Gap (3-11) BUN (6-23) mg/dl Creatinine (0.6-1.2) mg/dl Est Cr Clr Drug Dosing ml/min eGFR BUN/Creatinine Ratio (10-20) Glucose (70-99(Fasting)) mg/dl Calcium (8.6-10.3) mg/dl Total Bilirubin (0.2-1.0) mg/dl AST (13-39) U/L ALT (7-52) U/L Alkaline Phosphatase (34-104) U/L Troponin I High Sens (0-14) pg/ml Total Protein (6.0-8.3) gm/dl Albumin (3.4-5.0) gm/dl Globulin (2.5-4.0) gm/dl Albumin/Globulin Ratio (0.9-2) Lipase (11-82) U/L Urine Color Urine Appearance (Clear) Urine pH (4.5-7.5) Ur Specific [place] (1.000-1.030) Urine Protein (Negative) Urine Glucose (UA) (Negative) Urine Ketones (Negative) Urine Blood (Negative) Urine Nitrite (Negative) Urine Bilirubin (Negative) Urine Urobilinogen (Negative) Ur Leukocyte Esterase (Negative) Urine RBC (0-2) /hpf Urine WBC (0-5) /hpf Ur Epithelial Cells (0-2) /hpf Calcium Oxalate Crystal (None Prsent) Urine Bacteria (None Seen) Blood Type Antibody Screen Administered Medications Potassium Chloride (K Ritesh / Wtr) 10 meq in 100 mls @ 100 mls/hr IV Q1H DORY Stop: 08/25/24 14:14 Last Admin: 08/25/24 13:37 Dose: 100 mls/hr Documented By: Infusion: 08/25/24 13:31 Dose: Infused Documented By: Admin: 08/25/24 12:31 Dose: 100 mls/hr Documented By: SERVANDO Discontinued Medications Sodium Chloride (Nss) 1,000 mls @ 999 mls/hr IV .Q1H1M ONE Stop: 08/25/24 09:16 Last Infusion: 08/25/24 09:30 Dose: Infused Documented By: Admin: 08/25/24 08:30 Dose: 999 mls/hr Documented By: SERVANDO Sodium Chloride (Nss) 1,000 mls @ 999 mls/hr IV .Q1H1M ONE Stop: 08/25/24 11:15 Last Admin: 08/25/24 10:26 Dose: 999 mls/hr Documented By: SERVANDO Prothrombin Complex Concent ( (Human) 2,000 units/ Syringe) 80 mls @ 10 mls/min IV NOW STA Stop: 08/25/24 10:28 Last Admin: 08/25/24 10:36 Dose: 10 mls/min Documented By: SERVANDO Ioversol (Optiray 320 100ml) 94 ml IV ONCE ONE Stop: 08/25/24 09:00 Last Admin: 08/25/24 08:59 Dose: 94 ml Documented By: EVANGELISTA Morphine Sulfate (Morphine Sulfate 4 Mg/Ml 1 Ml Carp\\Vial) 4 mg IV NOW STA Stop: 08/25/24 08:26 Last Admin: 08/25/24 08:31 Dose: 4 mg Documented By: SERVANDO Morphine Sulfate (Morphine Sulfate 4 Mg/Ml 1 Ml Carp\\Vial) 4 mg IV NOW STA Stop: 08/25/24 09:57 Last Admin: 08/25/24 09:57 Dose: 4 mg Documented By: SERVANDO Morphine Sulfate (Morphine Sulfate 4 Mg/Ml 1 Ml Carp\\Vial) 4 mg IV NOW STA Stop: 08/25/24 10:16 Last Admin: 08/25/24 10:32 Dose: 4 mg Documented By: SERVANDO Ondansetron HCl (Ondansetron Inj 2 Mg/Ml 2 Ml Vial) 4 mg IV NOW STA Stop: 08/25/24 08:26 Last Admin: 08/25/24 08:31 Dose: 4 mg Documented By: SERVANDO Imaging Data Radiologist's Impression: Abdomen/Pelvis CT 08/25/24 08:[address] WITH IV CONTRAST CT DOSE: 1299.25 mGy.cm HISTORY: Acute generalized abdominal pain with nausea and vomiting abd pain TECHNIQUE: Multiaxial CT images of the abdomen and pelvis were performed following the IV administration of 94 cc of Optiray, A dose lowering technique was utilized adhering to the principles of ALARA. COMPARISON STUDY: 08/05/2023 FINDINGS: Cardiomegaly with coronary artery calcifications. Mild bibasilar atelectasis/scarring. No pneumatosis or pneumoperitoneum. Unremarkable spleen and adrenal glands. Hemorrhage and edema surrounds the pancreatic head and uncinate process. Cholecystectomy with intrahepatic and extrahepatic biliary ductal dilation. Patency of the hepatic and portal veins. Mild mass effect on the SMV secondary to adjacent hemorrhage within the mesentery. Unremarkable kidneys with subcentimeter hypodense likely benign foci of the left kidney. No hydronephrosis. Decompressed bladder with mild wall thickening. Hysterectomy. Atherosclerosis of the aorta without aneurysm. IVC filter in place. Decreased dimension of the IVC. Periportal lymph nodes redemonstrated. Fluid-filled distal esophagus. Wall thickening of the distal stomach and duodenum. No bowel obstruction. Colonic diverticulosis. Probable splenules in the abdominal left upper quadrant. Appendix not visualized. Large amount of hemorrhage within the right abdominal retroperitoneum, central focus of hemorrhage measuring 9.2 x 7.2 x 9.0 cm, interposed between the duodenum and ascending colon. Hemorrhage extends into the right lower quadrant and mesenteric root. Abnormal appearance of the proper hepatic artery with apparent thickened wall and only minimal central flow. Degenerative and postoperative changes of the spine without acute fracture. IMPRESSION: 1. Large amount of acute right abdominal retroperitoneal hemorrhage measures up to approximately 9 cm with hemorrhage extending into the central mesentery and abdominal right lower quadrant. No active extravasation. 2. The cause of the hemorrhage is likely related to the proper hepatic artery which demonstrates an abnormal appearance. Differential considerations include a vasculitis versus dissection. 3. Decreased dimension of the IVC suggestive of hypovolemia. 4. Wall thickening of the distal stomach and duodenum is likely reactive. 5. Incidental findings as above. Findings were discussed with Dr. Sargent on 08/25/2024 at 10:15 AM ACT 112: Negative or not required by law. The above report was generated using voice recognition software. It may contain grammatical, syntax or spelling errors. Electronically signed by: Ethan Celeste M.D. 08/25/2024 10:18 AM Discharge Plan Visit Data Chief Complaint: Abdominal Pain ED Provider: Haresh Sargent Discharge Problem: Retroperitoneal hematoma Forms Stand Alone Forms: [facility] Prescriptions Prescriptions: No Action (DME) nebulizer accessories Kit See Rx Instructions .Route Qty: 1 0RF Rx Instructions: As directed Anoro Ellipta 62.5-25 mcg/actuation blister with device 1 inh inhalation DAILY Qty: 3 1RF rosuvastatin 5 mg tablet 5 mg PO DAILY alendronate [Fosamax] 70 mg tablet 70 mg PO WK Rx Instructions: TAKE THIS MED EVERY SUNDAY Ozempic 2 mg/dose (8 mg/3 mL) pen injector 2 mg subcut .weekly Rx Instructions: TAKE THIS MED EVERY SUNDAY cholecalciferol (vitamin D3) 10 mcg (400 unit) capsule 10 mcg PO DAILY Rx Instructions: otc unable to verify Galzin 50 mg (zinc) capsule 50 mg PO DAILY Rx Instructions: otc unable to verify ascorbate calcium (vitamin C) 500 mg tablet 500 mg PO DAILY Rx Instructions: otc unable to verify albuterol sulfate 90 mcg/actuation HFA aerosol inhaler 2 puff inhalation Q6H PRN (Reason: Shortness Of Breath Or Wheezing) Qty: 3 1RF amoxicillin 500 mg Capsule 2,000 mg PO DIRECTED Rx Instructions: script TAKE 1 HOUR BEFORE DENTAL APT. betamethasone valerate 0.1 % Ointment 1 applic TOPICAL UD PRN (Reason: FLARE UPS) Rx Instructions: 1 jayy top bid prn. not on file with pharmacy folic acid 1 mg Tablet 1 mg PO DAILY metoprolol succinate 25 mg tablet extended release 24 hr 25 mg PO QAM nystatin [Nystop] 100,000 unit/gram powder 1 applic TOPICAL UD Rx Instructions: 1 jayy topical bid. not on file with pharmacy estradiol 0.01 % (0.1 mg/gram) cream 1 applic VAGINAL UD Rx Instructions: 1 jayy vaginal q2d. per pharmacy directions are 1/2 gram vaginal qam diclofenac sodium 1 % gel 1 ea TOPICAL BID PRN (Reason: Pain) Rx Instructions: APPLY TO AFFECTED AREA OF BACK & RIGHT HIP Eliquis 5 mg Tablet 5 mg PO BID Qty: 60 0RF latanoprost 0.005 % drops 1 drp OPB QPM omeprazole 40 mg capsule,delayed release(DR/EC) 40 mg PO DAILYBB tamsulosin 0.4 mg capsule 0.4 mg PO QAM Biotene PBF Mouthwash 15 ml PO UD Rx Instructions: 15 ml bid. not on file with pharmacy/OTC unable to verify gabapentin 400 mg capsule 400 mg PO TID nystatin-triamcinolone 100,000-0.1 unit/g-% Cream 1 applic TOPICAL UD PRN (Reason: Skin Irritation) Rx Instructions: 1 jayy topical bid prn. not filled in some time per pharmacy Referrals Referrals: Jcarlos Laureano PA-C [Primary Care Provider] -
[2024-08-25] MEDS: SODIUM CHLORIDE 0.9% 1,000 ML IV ONE ×2 (08:30→10:26)
[2024-08-25] MEDS: ONDANSETRON INJ 2 MG/ML 2 ML VIAL IV STA (08:31)
[2024-08-25] MEDS: MoRPHine SULFATE 4 MG/ML 1 ML CARP\\VIAL IV STA ×3 (08:31→10:26)
[2024-08-25 08:34] LABS: Basophils # (auto) 0.02 K/uL (0.00-0.20); Basophils % (auto) 0.3 %; Eosinophils # (auto) 0.24 K/uL (0.00-0.50); Eosinophils % (auto) 3.3 %; Hemoglobin 15.2 g/dl (12.0-16.0); Immature Granulocytes # (auto) 0.03 K/uL (0.01-0.20); Immature Granulocytes % (auto) 0.4 %; Lymphocytes # (auto) 1.48 K/uL (1.20-3.40); Lymphocytes % (auto) 20.6 %; Mean Corpuscular Hemoglobin 32.3 pg (25.0-34.0); Mean Corpuscular Hgb Conc 34.5 g/dL (32.0-36.0); Mean Corpuscular Volume 93.6 fL (80.0-100.0); Mean Platelet Volume 9.1 fL (9.4-12.4); Monocytes % (auto) 4.2 %; Neutrophils # (auto) 5.13 K/uL (1.40-6.50); Neutrophils % (auto) 71.2 %; Platelet Count 186 K/uL (130-400); RDW Coefficient of Variation 11.9 % (11.5-14.5); RDW Standard Deviation 41.2 fL (36.4-46.3)
[2024-08-25 08:55] LABS: Albumin Level 4.1 gm/dl (3.4-5.0); BUN Creatinine Ratio 28.8 (10-20); Bilirubin,Total 0.8 mg/dl (0.2-1.0); Calcium 9.1 mg/dl (8.6-10.3); Globulin 2.1 gm/dl (2.5-4.0); Total Protein 6.2 gm/dl (6.0-8.3)
[2024-08-25] MEDS: OPTIRAY 320 100ml IV ONE (08:59)
--- NOTE | 2024-08-25 10:19 | CT Scan Report ---
ABDOMEN AND PELVIS CT WITH IV CONTRAST CT DOSE: 1299.25 mGy.cm HISTORY: Acute generalized abdominal pain with nausea and vomiting abd pain TECHNIQUE: Multiaxial CT images of the abdomen and pelvis were performed following the IV administrat ion of 94 cc of Optiray, A dose lowering technique was utilized adhering to the principles of ALARA. COMPARISON STUDY: 08/05/2023 FINDINGS: Cardiomegaly with coronary artery calcifications. Mild bibasilar atelectasis/scarring. No p neumatosis or pneumoperitoneum. Unremarkable spleen and adrenal glands. Hemorrhage and edema surround s the pancreatic head and uncinate process. Cholecystectomy with intrahepatic and extrahepatic biliar y ductal dilation. Patency of the hepatic and portal veins. Mild mass effect on the SMV secondary to adjacent hemorrhage within the mesentery. Unremarkable kidneys with subcentimeter hypodense likely be nign foci of the left kidney. No hydronephrosis. Decompressed bladder with mild wall thickening. Hyst erectomy. Atherosclerosis of the aorta without aneurysm. IVC filter in place. Decreased dimension of the IVC. Periportal lymph nodes redemonstrated. Fluid-filled distal esophagus. Wall thickening of the distal stomach and duodenum. No bowel obstructi on. Colonic diverticulosis. Probable splenules in the abdominal left upper quadrant. Appendix not vis ualized. Large amount of hemorrhage within the right abdominal retroperitoneum, central focus of hemo rrhage measuring 9.2 x 7.2 x 9.0 cm, interposed between the duodenum and ascending colon. Hemorrhage extends into the right lower quadrant and mesenteric root. Abnormal appearance of the proper hepatic artery with apparent thickened wall and only minimal central flow. Degenerative and postoperative changes of the spine without acute fracture. IMPRESSION: 1. Large amount of acute right abdominal retroperitoneal hemorrhage measures up to approximately 9 cm with hemorrhage extending into the central mesentery and abdominal right lower quadrant. No active e xtravasation. 2. The cause of the hemorrhage is likely related to the proper hepatic artery which demonstrates an a bnormal appearance. Differential considerations include a vasculitis versus dissection. 3. Decreased dimension of the IVC suggestive of hypovolemia. 4. Wall thickening of the distal stomach and duodenum is likely reactive. 5. Incidental findings as above. Findings were discussed with Dr. Sargent on 08/25/2024 at 10:15 AM ACT 112: Negative or not required by law. The above report was generated using voice recognition software. It may contain grammatical, syntax o r spelling errors. Electronically signed by: Ethan Celeste M.D. 08/25/2024 10:18 AM
[2024-08-25] MEDS ORDERED: SODIUM CHLORIDE 0.9% 50 ML IV PRN (10:23)
[2024-08-25] MEDS ORDERED: SODIUM CHLORIDE 0.9% 100 ML IV PRN (10:23)
[2024-08-25] MEDS: PROTHROMBIN COMP CONC- KCENTRA 2,000 UNITS in SYRINGE 0 ML IV STA (10:36)
[2024-08-25 10:49] LABS: Appearance Urine Turbid (Clear); Bilirubin Urine Negative (Negative); Blood Urine Negative (Negative); Color Urine Yellow; Glucose Urine UA Negative (Negative); Ketones Urine Negative (Negative); Leukocyte Esterase Urine Trace (Negative); Nitrite Urine Positive (Negative); Protein Urine Negative (Negative); Specific Gravity Urine > 1.045 (1.000-1.030); Urobilinogen Urine Negative (Negative)
[2024-08-25 11:01] LABS: Epithelial Cell Urine >20 /hpf (0-2); RBC Urine 0-2 /hpf (0-2)
[2024-08-25 11:02] LABS: Bacteria Urine 2+ (None Seen); Calcium Oxalate Crystals Urine Present (None Prsent)
[2024-08-25] MEDS: POTASSIUM CHLORIDE / WTR 10 MEQ/100 ML PLCT IV SCH (12:31)
[2024-08-25 12:56] LABS: Partial Thromboplastin Ratio 0.9; Partial Thromboplastin Time 23 Seconds (21-31); Prothrombin Time 10.8 Seconds (9.0-12.0)
--- NOTE | 2024-08-25 13:02 | History & Physical Report ---
Date of Service August 25, 2024 Assessment & Plan (1) Retroperitoneal hemorrhage: (2) Suspected urinary tract infection: (3) Hypokalemia due to excessive gastrointestinal loss of potassium: (4) Ileus: (5) Viral gastroenteritis: (6) COPD (chronic obstructive pulmonary disease): (7) Pulmonary fibrosis: (8) Hx pulmonary embolism: (9) Diabetes mellitus type 2, controlled, with complications: Plan Patient 79-year-old female with a acute, spontaneous right retroperitoneal he morrhage in the setting of chronic anticoagulation. Patient is at high risk for ongoing bleeding. Requires hospital level care and monitoring and eventual transfer for interventional radiology intervention. Admit to the hospital, monitored unit Hold Eliquis and anticoagulation in the setting of acute retroperitoneal bleed. Teds and SCD for VTE prophylaxis Kcentra ordered by ED provider Monitor hemoglobin every 8 hours, transfuse as needed for increase in symptoms Replace potassium both oral and IV Full liquid diet, n.p.o. after midnight anticipation of possible transfer to [place] for IR intervention Check ESR and CRP as a vasculitis may be in the differential Monitor glucose and cover with insulin as needed Suspect patient may have a mild ileus due to her recent viral gastroenteritis and retroperitoneal hemorrhage, will continue to monitor and see how she tolerates a diet for now. Empiric treatment of suspected UTI based on urinalysis with Rocephin, monitor urine culture Continue outpatient inhaler, as well as as needed albuterol Monitor electrolytes Patient does appear to be slightly dehydrated and possibly hemoconcentrated with her recent bout of viral gastroenteritis, give some gentle IV hydration Son at bedside agreeable to plan of care. Per transfer center: Patient is excepted for direct admission to [facility]. IR radiologist feels that bleeding is from proper hepatic vessel. Vascular surgery stated that there is no need for urgent intervention from their specialty. They recommended IR evaluation. IR radiologist stated no immediate intervention plan but agreeable to accept in transfer. Patient was accepted to medicine service at [place]. Medicine service suggested patient could potentially be discharged with outpatient IR follow-up if patient overall remained stable. History of Present Illness Chief Complaint: Severe abdominal and back pain Primary Care Provider: Jcarlos Laureano PA-C Patient is a 79-year-old female on chronic anticoagulation due to history of DVT presents to the emergency room with above complaints. In the emergency room CT imaging of the abdomen pelvis revealed large retroperitoneal hemorrhage. [facility] was contacted for possible interventional radiology procedure. They accepted her in transfer, however did not have any beds. Due to the fact that her hemoglobin and vital signs are stable and does not appear that she is actively bleeding was not put on the priority list and they will potentially except her soon as tomorrow for interventional radiology procedure. Referred to our service for evaluation. Time my evaluation the patient's pain is improved. Her son is at the bedside. Patient reports actually starting middle of last week she had what they said was "norovirus." She had a lot of dry heaving and diarrhea. By the end of week she states that she was starting to feel little bit better and over the weekend her appetite improved. However acutely this morning she had a onset of severe back and abdominal pain. Is so severe that she called 911 and brought to the emergency room. In the emergency room as mentioned CT imaging showed retroperitoneal hemorrhage. Patient is on chronic Eliquis for history of DVT. Also has an IVC filter in place based on imaging. She states that she did did have some fevers last week. But that seems to have resolved. There was no blood in her stool. No chest pain or shortness of breath. She has some COPD which she uses inhalers but that has been well-controlled. She has been compliant with her Eliquis. She believes the last time she took it was last night. Allergies Allergy/AdvReac Type Severity Reaction Status Date / Time naproxen Allergy Severe SOB, HIVES Verified 04/22/24 13:24 WITH ALEVE ibuprofen Allergy Mild HIVES Verified 04/22/24 13:24 morphine Allergy Mild itching Verified 04/22/24 13:24 levofloxacin Allergy Unknown Unknown Verified 04/22/24 13:24 Penicillins Allergy Unknown occured as Verified 04/22/24 13:24 a child, severe itching prochlorperazine Allergy Unknown "eyes Verified 04/22/24 13:24 rolled back in head", muscle twitching latex Allergy blisters Verified 04/22/24 13:24 nitrofurantoin AdvReac Intermediate Nausea/vomi Verified 04/22/24 13:24 ting Home Medications Medication Instructions Recorded Confirmed Type amoxicillin 500 mg capsule 2,000 mg PO DIRECTED 03/20/22 04/22/24 History betamethasone valerate 0.1 % 1 applic topical BID PRN FLARE UPS 03/20/22 04/22/24 History topical ointment diclofenac sodium 1 % topical gel 1 ea topical BID PRN Pain 03/20/22 04/22/24 History duloxetine 60 mg capsule,delayed 60 mg PO DAILY 03/20/22 04/22/24 History release estradiol 0.01% (0.1 mg/gram) 1 applic vaginal Q2D 03/20/22 04/22/24 History vaginal cream folic acid 1 mg tablet 1 mg PO DAILY 03/20/22 04/22/24 History metoprolol succinate 25 mg 25 mg PO QAM 03/20/22 04/22/24 History tablet,extended release 24 hr nystatin 100,000 unit/gram topical 1 applic topical BID 03/20/22 04/22/24 History powder (Nystop) apixaban 5 mg tablet (Eliquis) 5 mg PO BID #60 tabs 04/14/22 04/22/24 Rx nebulizer accessories #1 ea 05/01/22 04/22/24 Rx rosuvastatin 5 mg tablet 5 mg PO DAILY 07/03/22 04/22/24 History latanoprost 0.005 % eye drops 1 drp OPB QPM 01/25/23 04/22/24 History omeprazole 40 mg capsule,delayed 40 mg PO DAILYBB 01/25/23 04/22/24 History release alendronate 70 mg tablet (Fosamax) 70 mg PO WK 08/23/23 04/22/24 History semaglutide 2 mg/dose (8 mg/3 mL) 2 mg subcut .weekly 08/23/23 04/22/24 History subcutaneous pen injector (Ozempic) gabapentin 400 mg capsule 400 mg PO TID 03/05/24 04/22/24 History nystatin-triamcinolone 100,000 1 applic topical BID PRN Skin 03/06/24 04/22/24 History unit/g-0.1 % topical cream Irritation dexamethasone 6 mg tablet 6 mg PO DAILY #2 tabs 03/08/24 04/22/24 Rx saliva substitute combo no.9 15 ml PO BID #473 mL 03/08/24 04/22/24 Rx (Biotene PBF mouthwash) ascorbate calcium (vitamin C) 500 500 mg PO DAILY 04/22/24 04/22/24 History mg tablet cholecalciferol (vitamin D3) 10 10 mcg PO DAILY 04/22/24 04/22/24 History mcg (400 unit) capsule zinc acetate 50 mg (zinc) capsule 50 mg PO DAILY 04/22/24 04/22/24 History (Galzin) albuterol sulfate 90 mcg/actuation 2 puff inhalation Q6H PRN 04/24/24 04/24/24 Rx aerosol inhaler Shortness Of Breath Or Wheezing #3 Inhalers umeclidinium 62.5 mcg-vilanterol 1 inh inhalation DAILY #3 Inhalers 06/16/24 Rx 25 mcg/actuation powdr for inhalation (Anoro Ellipta) Past Med/Surg History Problem List (Updated 08/25/24 @ 13:11 by Rudy Nina DO) Ileus Diabetes mellitus type 2, controlled, with complications Hypokalemia due to excessive gastrointestinal loss of potassium Viral gastroenteritis Suspected urinary tract infection Retroperitoneal hemorrhage COPD (chronic obstructive pulmonary disease) (Acute) COVID-19 (Acute) Pulmonary fibrosis Glossitis Thrush of mouth and esophagus Vocal cord nodules Restrictive lung disease Hoarseness of voice Obesity Ex-smoker Allergic rhinitis with postnasal drip Abnormal chest CT Exertional shortness of breath Accidental fall (Acute) Fall (Acute) Encounter for pre-operative examination Osteoarthritis of right knee Status post total right knee replacement Encounter for pre-operative examination Iron deficiency anemia Urinary tract infection (Acute 08/29/12) Recurrent UTI (Acute) Nephrolithiasis (Acute) Atrophic vaginitis Medical History Oral candidiasis Acute respiratory failure with hypoxia Pneumonia due to COVID-19 virus Bronchitis COVID-19 Sleep apnea "mild" no device History of skin cancer removed Diverticular disease Anemia Hypertension Obesity Hx pulmonary embolism 2012; AC X ONE MONTHS History of kidney stones History of DVT of lower extremity 2012, WAS ON BLOOD THINNERS X ONE MONTH; unk etiology Hiatal hernia GERD (gastroesophageal reflux disease) CONTROLLED Osteoarthritis Surgical History (Updated 04/08/24 @ 00:07 by Cliff Beck) History of left cataract surgery History of lumpectomy x 2 (benign) History of appendectomy History of tonsillectomy History of nasal surgery History of colonoscopy X 2 History of esophagogastroduodenoscopy (EGD) X 2 History of total knee replacement RIGHT [place] filter in place PLACED 2012 History of lumbar spinal fusion History of hysterectomy History of cholecystectomy Family History Father Hypertension Other No family history of adverse response to anesthesia Social History Smoking Status: Never smoker Cigarettes Per Day: HX OF 1 PACK PER WEEK, QUIT 25 YEARS AGO; Second Hand Exposure: No; Do You Dip or Chew Tobacco: No; Hx Alcohol Use: No Hx Substance Use: No Preferred Language: Pakistani Communication Ability: Effective Healthcare Liaison Required: No Beliefs That Will Affect Care: None Current Living Situation: Alone Feels Safe at Home: Yes Assistive Devices: CPAP Review of Systems Review of Systems: Pertinent positive and negative review of systems as mentioned in the HPI Physical Exam Physical Exam: Constitutional: Alert, mildly ill in appearance, nontoxic HEENT: Mucous membranes dry. Sclera clear Neck: Soft, no adenopathy Lungs: Decreased breath sounds comfortable and expiratory phase, no wheezes or rails CV: S1-S2, regular Abdomen: Decreased breath sounds, mildly distended, mild tympany, no guarding, no rigidity, no masses Extremities: No significant edema Musculoskeletal: No significant joint tenderness Neuro: No focal deficits Psych: Cooperative, normal mood Results & Data Results & Data Vital Signs (Past 12 Hours) Vital Signs Temp Pulse Pulse Resp BP BP Pulse Ox 08/25/24 12:00 94 H 20 105/77 95 08/25/24 10:27 93 H 20 141/69 H 96 08/25/24 09:00 63 20 119/59 L 94 08/25/24 08:27 64 08/25/24 07:55 36.8 C 71 18 183/125 H 97 O2 Del Method 08/25/24 12:00 08/25/24 10:27 Room Air 08/25/24 09:00 08/25/24 08:27 08/25/24 07:55 Room Air Diagnostic Findings Reviewed imaging, laboratory and diagnostic studies. Pertinent findings as below. WBC 7.2 Hemoglobin 15.2, baseline hemoglobin appears to be around 13.5 Potassium 3.0 Creatinine 0.59 Glucose 201 Urinalysis significant for nitrates, leukocyte esterase and 2+ bacteria, 6-[address] of the abdomen and pelvis reviewed large acute right retroperitoneal hemorrhage measuring approximately 9 cm. No active extravasation. Concern hemorrhage likely from the proper hepatic artery Code Status & VTE Plan VTE Prophylaxis Plan VTE Prophylaxis will be ordered: Yes
[2024-08-25 13:15] LABS: ANTI-Xa, LMWH(Low Molecular Wt 0.66 IU/ML (< 0.10)
[2024-08-25 13:39] LABS: Fibrinogen 312 mg/dl (184-400)
[2024-08-25] MEDS ORDERED: GLUCOSE 10 TAB/TUBE PO PRN (15:08)
[2024-08-25] MEDS ORDERED: DEXTROSE 50% 50 ML SYRINGE IV PRN (15:08)
[2024-08-25] MEDS ORDERED: GLUCOSE 40% GEL 15 GM TUBE PO PRN (15:08)
[2024-08-25] MEDS ORDERED: CARBOHYDRATES FOR HYPOGLYCEMIA PO PRN (15:08)
[2024-08-25] MEDS ORDERED: ALBUTEROL HFA 8 GM INHALER INH PRN (15:08)
[2024-08-25] MEDS ORDERED: MoRPHine SULFATE 4 MG/ML 1 ML CARP\\VIAL IV PRN (15:08)
[2024-08-25] MEDS ORDERED: ONDANSETRON INJ 2 MG/ML 2 ML VIAL IV PRN (15:08)
[2024-08-25] MEDS ORDERED: ACETAMINOPHEN 325 MG TAB PO PRN (15:08)
[2024-08-25] MEDS ORDERED: GLUCAGON FOR INJ 1 MG VIAL SQ PRN (15:08)
[2024-08-25] MEDS ORDERED: cefTRIAXone SODIUM 1,000 MG/50 ML BAG IV SCH (15:15)
[2024-08-25] MEDS: STAT IV/IM STA (15:35)
[2024-08-25] MEDS: SODIUM CHLORIDE 0.9% 500 ML IV SCH (15:35)
[2024-08-25] MEDS: SODIUM CHLORIDE 0.9% 1,000 ML IV SCH (15:42)
[2024-08-25] MEDS: POTASSIUM CHLORIDE CRTAB 20 MEQ TABCR PO STA (15:42)
[2024-08-25 15:45] LABS: C Reactive Protein 0.58 mg/dl (0-0.5)
[2024-08-25] MEDS: cefTRIAXone SODIUM 2,000 MG/50 ML BAG IV SCH (16:26)
[2024-08-25] MEDS: GABAPENTIN 400 MG CAP PO SCH (16:27)
[2024-08-25] MEDS: oxyCODONE HCL IR 5 MG TAB (IMMEDIATE RELEASE) PO PRN (16:32)
[2024-08-25] MEDS: POTASSIUM CHLORIDE CRTAB 20 MEQ TABCR PO ONE (17:43)
[2024-08-25] MEDS: INSULIN ASPART PER UNIT CHARGE SC SCH (18:20)
[2024-08-25 19:24] LABS: Hematocrit (blood only) 32.6 % (37.0-47.0)
[2024-08-25] MEDS: LATANOPROST 0.005% OP SOLN 2.5 ML BTL OPB SCH (20:31)
[2024-08-26 04:59] LABS: Hematocrit (blood only) 27.7 % (37.0-47.0); Hemoglobin 9.2 g/dl (12.0-16.0)
[2024-08-26 05:14] LABS: Calcium 7.8 mg/dl (8.6-10.3); Creatinine Clr Calc Pharmacy 113.8 ml/min; Magnesium 1.7 mg/dl (1.7-2.4); Potassium 4.3 mmol/L (3.5-5.1)
[2024-08-26] MEDS: PANTOprazole 40 MG TAB PO SCH (06:12)
[2024-08-26 08:12] VITALS: RESP 14
[2024-08-26] MEDS: ROSUVASTATIN CALCIUM 5 MG TAB PO SCH (09:10)
[2024-08-26] MEDS: CHOLECALCIFEROL 10 MCG (400 UNITS) TAB PO SCH (09:11)
[2024-08-26] MEDS: DULoxetine HCL 60 MG CAP PO SCH (09:11)
[2024-08-26] MEDS: METOPROLOL SUCC 25MG EXT REL TAB PO SCH (09:11)
[2024-08-26] MEDS: UMECLIDINIUM/VILANTEROL 62.5/25MCG 7 PUFFS/INHALER INH SCH (09:12)
[2024-08-26 11:33] VITALS: BP 122/78; PULSE 79; TEMP 98.1; O2SAT 93
--- NOTE | 2024-08-26 13:36 | Hospitalist Progress Note ---
Date of Service August 26, 2024 Assessment & Plan (1) Retroperitoneal hemorrhage: (2) Suspected urinary tract infection: (3) Hypokalemia due to excessive gastrointestinal loss of potassium: (4) Ileus: (5) Viral gastroenteritis: (6) COPD (chronic obstructive pulmonary disease): (7) Pulmonary fibrosis: (8) Hx pulmonary embolism: (9) Diabetes mellitus type 2, controlled, with complications: Plan Ms. Weems is a 79-year-old female with past medical history significant for h yperlipidemia, obstructive sleep apnea, history of MTHFR deficiency, history of DVT and PE in 2010 as per patient, status post IVC filter, morbid obesity, [place], GERD, history of recurrent UTI, stress incontinence of urine, osteoarthritis, benign paroxysmal positional vertigo, primary open-angle glaucoma bilateral mild stage, generalized anxiety disorder, depression, medical marijuana use, admitted with a acute, spontaneous right retroperitoneal hemorrhage in the setting of chronic anticoagulation. Plans for transfer to [place] #Acute, spontaneous right retroperitoneal hemorrhage - on eugene torres in ED CT:Large amount of acute right abdominal retroperitoneal hemorrhage measures up to approximately 9 cm with hemorrhage extending into the central mesentery and abdominal right lower quadrant. No active extravasation. 2. The cause of the hemorrhage is likely related to the proper hepatic artery which demonstrates an abnormal appearance. Differential considerations include a vasculitis versus dissection. Trend HH CLD for now given afternoon transport/late evening likely #Recent Gastroenteritis CLD for now no current diarrhea or symptoms #probable UTI empiric treatment given concerning urinalysis with Rocephin #COPD Continue home inhalers and nebs as needed #History of DVT and PE #Status post IVC filter hold eliquis #Obstructive sleep apnea CPAP nightly #Hyperlipidemia On statin #Hypertension On lisinopril and metoprolol succinate Will monitor #GERD Omeprazole Per transfer center: Patient is excepted for direct admission to [facility]. IR radiologist feels that bleeding is from proper hepatic vessel. Vascular surgery stated that there is no need for urgent intervention from their specialty. They recommended IR evaluation. IR radiologist stated no immediate intervention plan but agreeable to accept in transfer. Patient was accepted to medicine service at [place]. Medicine service suggested patient could poten tially be discharged with outpatient IR follow-up if patient overall remained stable. Admission and Anticipated Discharge Date Admission Date: August 25, 2024 Subjective NAEO reports pain controlled at this time with current pain regimen discussed what potentially embolization could look like patient verbalized understanding Physical Exam Constitutional: WD/WN, vitals as above Respiratory: normal respiratory effort, lungs clear to auscultation Cardiovascular: RRR, no murmur, no edema Gastrointestinal (Abdomen): tenderness in ruq and epigastrium Results & Data Results & Data Vital Signs (Past 12 Hours) Vital Signs Temp Pulse Pulse Resp BP Pulse Ox O2 Del Method 08/26/24 11:49 Room Air 08/26/24 11:32 36.7 C 79 14 122/78 93 Room Air 08/26/24 08:10 36.4 C L 82 14 130/77 94 Room Air 08/26/24 07:27 89 08/26/24 03:49 36.5 C 85 20 134/74 95 Room Air Laboratory Results Short CBC 08/25/24 08/26/24 Range/Units 18:42 04:23 Hgb 11.0 L D 9.2 L (12.0-16.0) g/dl Hct 32.6 L 27.7 L (37.0-47.0) % BMP 08/26/24 04:23 Sodium 141 Potassium 4.3 D Chloride 111 H Carbon Dioxide 25 BUN 13 Creatinine 0.42 L Glucose 92 Calcium 7.8 L Medications Administered Home Medications Medication Instructions Recorded Confirmed Last Taken amoxicillin 500 mg capsule 2,000 mg PO DIRECTED 03/20/22 08/25/24 Unknown betamethasone valerate 0.1 % 1 applic topical UD PRN FLARE UPS 03/20/22 08/25/24 Unknown topical ointment diclofenac sodium 1 % topical gel 1 ea topical BID PRN Pain 03/20/22 08/25/24 Unknown estradiol 0.01% (0.1 mg/gram) 1 applic vaginal UD 03/20/22 08/25/24 Unknown vaginal cream folic acid 1 mg tablet 1 mg PO DAILY 03/20/22 08/25/24 Unknown metoprolol succinate 25 mg 25 mg PO QAM 03/20/22 08/25/24 Unknown tablet,extended release 24 hr nystatin 100,000 unit/gram topical 1 applic topical UD 03/20/22 08/25/24 Unknown powder (Nystop) apixaban 5 mg tablet (Eliquis) 5 mg PO BID #60 tabs 04/14/22 08/25/24 Unknown nebulizer accessories #1 ea 05/01/22 04/22/24 Unknown rosuvastatin 5 mg tablet 5 mg PO DAILY 07/03/22 08/25/24 Unknown latanoprost 0.005 % eye drops 1 drp OPB QPM 01/25/23 08/25/24 Unknown omeprazole 40 mg capsule,delayed 40 mg PO DAILYBB 01/25/23 08/25/24 Unknown release alendronate 70 mg tablet (Fosamax) 70 mg PO WK 08/23/23 08/25/24 Unknown semaglutide 2 mg/dose (8 mg/3 mL) 2 mg subcut .weekly 08/23/23 08/25/24 Unknown subcutaneous pen injector (Ozempic) gabapentin 400 mg capsule 400 mg PO TID 03/05/24 08/25/24 Unknown nystatin-triamcinolone 100,000 1 applic topical UD PRN Skin 03/06/24 08/25/24 Unknown unit/g-0.1 % topical cream Irritation ascorbate calcium (vitamin C) 500 500 mg PO DAILY 04/22/24 08/25/24 Unknown mg tablet cholecalciferol (vitamin D3) 10 10 mcg PO DAILY 04/22/24 08/25/24 Unknown mcg (400 unit) capsule zinc acetate 50 mg (zinc) capsule 50 mg PO DAILY 04/22/24 08/25/24 Unknown (Galzin) albuterol sulfate 90 mcg/actuation 2 puff inhalation Q6H PRN 04/24/24 08/25/24 Unknown aerosol inhaler Shortness Of Breath Or Wheezing #3 Inhalers umeclidinium 62.5 mcg-vilanterol 1 inh inhalation DAILY #3 Inhalers 06/16/24 08/25/24 Unknown 25 mcg/actuation powdr for inhalation (Anoro Ellipta) saliva substitute combo no.9 15 ml PO UD 08/25/24 08/25/24 Unknown (Biotene PBF mouthwash) tamsulosin 0.4 mg capsule 0.4 mg PO QAM 08/25/24 08/25/24 Unknown Active Medications Generic Name Dose Route Start Last Admin Trade Name Freq PRN Reason Stop Dose Admin Duloxetine HCl 60 mg 08/26/24 09:00 08/26/24 09:11 Duloxetine Hcl 60 Mg Cap PO 09/25/24 08:59 60 mg DAILY DORY Administration Gabapentin 400 mg 08/25/24 15:15 08/26/24 09:11 Gabapentin 400 Mg Cap PO 09/24/24 15:14 400 mg TID DORY Administration Sodium Chloride 1,000 mls @ 80 mls/hr 08/25/24 15:08 08/26/24 03:48 Nss IV 08/26/24 15:07 80 mls/hr .[id number] DORY Administration Ceftriaxone Sodium 2,000 mg in 50 mls @ 100 mls/hr 08/25/24 15:30 08/25/24 17:04 Rocephin IV 08/30/24 15:29 Infused Q24H DORY Infusion Insulin Aspart 0 units 08/25/24 16:30 08/26/24 12:17 Insulin Aspart Per Unit Charge SC 09/24/24 16:29 Not Given ACHS DORY Latanoprost 1 drops 08/25/24 21:00 08/25/24 20:31 Latanoprost 0.005% Op Soln 2.5 Ml Btl OPB 09/24/24 20:59 1 drops QPM DORY Administration Metoprolol Succinate 25 mg 08/26/24 09:00 08/26/24 09:11 Metoprolol Succ 25mg Ext Rel Tab PO 09/25/24 08:59 25 mg QAM DORY Administration Oxycodone HCl 5 mg 08/25/24 15:08 08/26/24 09:10 Oxycodone Hcl Ir 5 Mg Tab (Immediate Release) PO 09/08/24 15:07 5 mg Q4H PRN Administration Pain Pantoprazole Sodium 40 mg 08/26/24 06:30 08/26/24 06:12 Pantoprazole 40 Mg Tab PO 09/25/24 06:29 40 mg DAILYBB DORY Administration Rosuvastatin Calcium 5 mg 08/26/24 09:00 08/26/24 09:10 Rosuvastatin Calcium 5 Mg Tab PO 09/25/24 08:59 5 mg DAILY DORY Administration Umeclidinium/Vilanterol 1 puffs 08/26/24 09:00 08/26/24 09:12 Umeclidinium/Vilanterol 62.5/25mcg 7 Puffs/Inhaler INH 09/25/24 08:59 1 puffs DAILY DORY Administration Vitamin D 10 mcg 08/26/24 09:00 08/26/24 09:11 Cholecalciferol 10 Mcg (400 Units) Tab PO 09/25/24 08:59 10 mcg DAILY DORY Administration
--- NOTE | 2024-08-26 14:23 | Discharge Summary ---
Discharge Summary Date of Service August 26, 2024 Principal Dx & Hospital Course #1 = Principal Diagnosis (1) Retroperitoneal hemorrhage: (2) Suspected urinary tract infection: (3) Hypokalemia due to excessive gastrointestinal loss of potassium: (4) Ileus: (5) Viral gastroenteritis: (6) COPD (chronic obstructive pulmonary disease): (7) Pulmonary fibrosis: (8) Hx pulmonary embolism: (9) Diabetes mellitus type 2, controlled, with complications: Plan Ms. Weems is a 79-year-old female with past medical history significant for hyperlipidemia, obstructive sleep apnea, history of MTHFR deficiency, history of DVT and PE in 2010 as per patient, status post IVC filter, morbid obesity, [place], GERD, history of recurrent UTI, stress incontinence of urine, osteoarthritis, benign paroxysmal positional vertigo, primary open-angle glaucoma bilateral mild stage, generalized anxiety disorder, depression, medical marijuana use, admitted with a acute, spontaneous right retroperitoneal hemorrhage in the setting of chronic anticoagulation. Patient with 1 weeks of gastrointestinal illness followed by abdominal pain, with noted bleed as below On day of transfer, patient with controlled pain and hemoglobin at 9.2 without transfusion #Acute, spontaneous right retroperitoneal hemorrhage - on eugene torres in ED CT:Large amount of acute right abdominal retroperitoneal hemorrhage measures up to approximately 9 cm with hemorrhage extending into the central mesentery and abdominal right lower quadrant. No active extravasation. 2. The cause of the hemorrhage is likely related to the proper hepatic artery which demonstrates an abnormal appearance. Differential considerations include a vasculitis versus dissection. Trend HH CLD for now given afternoon transport/late evening likely #Recent Gastroenteritis CLD for now no current diarrhea or symptoms #probable UTI empiric treatment given concerning urinalysis with Rocephin #COPD Continue home inhalers and nebs as needed #History of DVT and PE #Status post IVC filter hold eliquis #Obstructive sleep apnea CPAP nightly #Hyperlipidemia On statin #Hypertension On lisinopril and metoprolol succinate Will monitor #GERD Omeprazole Notes For Next Care Provider Medication Changes From Visit held eliasya Admission HPI Per Admitting Provider Patient is a 79-year-old female on chronic anticoagulation due to history of DVT presents to the emergency room with above complaints. In the emergency room CT imaging of the abdomen pelvis revealed large retroperitoneal hemorrhage. [facility] was contacted for possible interventional radiology procedure. They accepted her in transfer, however did not have any beds. Due to the fact that her hemoglobin and vital signs are stable and does not appear that she is actively bleeding was not put on the priority list and they will potentially except her soon as tomorrow for interventional radiology procedure. Referred to our service for evaluation. Time my evaluation the patient's pain is improved. Her son is at the bedside. Patient reports actually starting middle of last week she had what they said was "norovirus." She had a lot of dry heaving and diarrhea. By the end of week she states that she was starting to feel little bit better and over the weekend her appetite improved. However acutely this morning she had a onset of severe back and abdominal pain. Is so severe that she called 911 and brought to the emergency room. In the emergency room as mentioned CT imaging showed retroperitoneal hemorrhage. Patient is on chronic Eliquis for history of DVT. Also has an IVC filter in place based on imaging. She states that she did did have some fevers last week. But that seems to have resolved. There was no blood in her stool. No chest pain or shortness of breath. She has some COPD which she uses inhalers but that has been well-controlled. She has been compliant with her Eliquis. She believes the last time she took it was last night. Admission Exam Per Admitting Provider Constitutional: Alert, mildly ill in appearance, nontoxic HEENT: Mucous membranes dry. Sclera clear Neck: Soft, no adenopathy Lungs: Decreased breath sounds comfortable and expiratory phase, no wheezes or rails CV: S1-S2, regular Abdomen: Decreased breath sounds, mildly distended, mild tympany, no guarding, no rigidity, no masses Extremities: No significant edema Musculoskeletal: No significant joint tenderness Neuro: No focal deficits Psych: Cooperative, normal mood Discharge Exam Constitutional WD/WN, vitals as above Respiratory normal respiratory effort, lungs clear to auscultation Gastrointestinal (Abdomen) tenderness noted in RUQ Updated Medication List Medication Instructions Recorded Confirmed Type amoxicillin 500 mg capsule 2,000 mg PO DIRECTED 03/20/22 08/25/24 History betamethasone valerate 0.1 % 1 applic topical UD PRN FLARE UPS 03/20/22 08/25/24 History topical ointment diclofenac sodium 1 % topical gel 1 ea topical BID PRN Pain 03/20/22 08/25/24 History estradiol 0.01% (0.1 mg/gram) 1 applic vaginal UD 03/20/22 08/25/24 History vaginal cream folic acid 1 mg tablet 1 mg PO DAILY 03/20/22 08/25/24 History metoprolol succinate 25 mg 25 mg PO QAM 03/20/22 08/25/24 History tablet,extended release 24 hr nystatin 100,000 unit/gram topical 1 applic topical UD 03/20/22 08/25/24 History powder (Nystop) apixaban 5 mg tablet (Eliquis) 5 mg PO BID #60 tabs 04/14/22 08/25/24 Rx nebulizer accessories #1 ea 05/01/22 04/22/24 Rx rosuvastatin 5 mg tablet 5 mg PO DAILY 07/03/22 08/25/24 History latanoprost 0.005 % eye drops 1 drp OPB QPM 01/25/23 08/25/24 History omeprazole 40 mg capsule,delayed 40 mg PO DAILYBB 01/25/23 08/25/24 History release alendronate 70 mg tablet (Fosamax) 70 mg PO WK 08/23/23 08/25/24 History semaglutide 2 mg/dose (8 mg/3 mL) 2 mg subcut .weekly 08/23/23 08/25/24 History subcutaneous pen injector (Ozempic) gabapentin 400 mg capsule 400 mg PO TID 03/05/24 08/25/24 History nystatin-triamcinolone 100,000 1 applic topical UD PRN Skin 03/06/24 08/25/24 History unit/g-0.1 % topical cream Irritation ascorbate calcium (vitamin C) 500 500 mg PO DAILY 04/22/24 08/25/24 History mg tablet cholecalciferol (vitamin D3) 10 10 mcg PO DAILY 04/22/24 08/25/24 History mcg (400 unit) capsule zinc acetate 50 mg (zinc) capsule 50 mg PO DAILY 04/22/24 08/25/24 History (Galzin) albuterol sulfate 90 mcg/actuation 2 puff inhalation Q6H PRN 04/24/24 08/25/24 Rx aerosol inhaler Shortness Of Breath Or Wheezing #3 Inhalers umeclidinium 62.5 mcg-vilanterol 1 inh inhalation DAILY #3 Inhalers 06/16/24 08/25/24 Rx 25 mcg/actuation powdr for inhalation (Anoro Ellipta) saliva substitute combo no.9 15 ml PO UD 08/25/24 08/25/24 History (Biotene PBF mouthwash) tamsulosin 0.4 mg capsule 0.4 mg PO QAM 08/25/24 08/25/24 History Hospital Stay Data Consultations 08/25/24 12:30 ED Decision to Admit Stat Diagnostic Imagining Performed 08/25/24 08:53 CT Abd and Pelvis [CT abd pelvis IV con only] Stat Pending Results Patient Have Any Pending Studies at Discharge: No Discharge Instructions Given to Patient (Per Discharging Provider) You were admitted to [facility] while awaiting transfer to [place] for evaluation of retroperitoneal hemorrhage Total Time Total Time Spent Total Time Spent (In Minutes): 35
--- NOTE | 2024-08-27 18:53 | Electrocardiogram Report ---
Test Reason : Blood Pressure : */* mmHG Vent. Rate : 62 BPM Atrial Rate : 62 BPM P-R Int : 208 ms QRS Dur : 92 ms QT Int : 480 ms P-R-T Axes : 77 -56 83 degrees QTcB Int : 487 ms Normal sinus rhythm Left anterior fascicular block Abnormal ECG When compared with ECG of 05-Mar-2024 20:10, T wave inversion now evident in Lateral leads Confirmed by Juancarlos Zavala ([id number]) on 08/27/2024 6:53:15 PM Referred By: REFERRED SELF Confirmed By: Juancarlos Zavala
== END 2024-08-26 15:31 | disposition short-term general hospital (02) | DRG 372 ==
LOC: ED 07:51 → 2N 12:59 → SUATTDRO 12:59 → 2N 14:33